=== PATIENT | female | born 1945 ===

== ENCOUNTER → 2019-08-07 | Outpatient (CLI) | payer MEDICARE, BC ==
--- NOTE | 2019-08-08 08:59 | MM ---
Reason for exam: additional evaluation requested from prior study. Last mammogram was performed 3 years and 2 months ago. History: Patient is postmenopausal, has history of other cancer at age 24, and has history of high-risk lesion on a previous biopsy at age 23. Family history of breast cancer in mother at age 50. Excisional biopsy of the left breast, 1978. Took hormonal contraceptives for 6 years beginning at age 18. Physical Findings: Nurse did not find any significant physical abnormalities on exam. MG 3D Diag Mammo W/Cad JOHN Bilateral CC and MLO view(s) were taken. CV view(s) were taken of the right breast. XCCL view(s) were taken of the left breast. Prior study comparison: June 06, 2016, mammogram, performed at [place]. April 20, 2016, mammogram, performed at [place]. There are scattered fibroglandular densities. No significant new findings when compared with previous films. These results were verbally communicated with the patient and result sheet given to the patient on 08/07/19. ASSESSMENT: Incomplete: need additional imaging evaluation, BI-RAD 0 RECOMMENDATION: Ultrasound of the right breast.
--- NOTE | 2019-08-08 09:00 | USB ---
Reason for exam: additional evaluation requested from prior study. History: Patient is postmenopausal, has history of other cancer at age 24, and has history of high-risk lesion on a previous biopsy at age 23. Family history of breast cancer in mother at age 50. Excisional biopsy of the left breast, 1978. Took hormonal contraceptives for 6 years beginning at age 18. US Breast Limited RT Right limited breast ultrasound including focal area of concern, retroareolar and axilla demonstrates no cystic or solid lesion seen. These results were verbally communicated with the patient and result sheet given to the patient on 08/07/19. ASSESSMENT: Negative, BI-RAD 1 RECOMMENDATION: Routine screening mammogram of both breasts in 1 year.
== END | disposition home or self-care (01) ==
LOC: RADMAMWWP 09:31
PROVIDERS: ATTEND Family Medicine
DX: R92.8 Other abnormal and inconclusive findings on diagnostic imaging of breast (principal); N64.59 Other signs and symptoms in breast
CPT/HCPCS: 77066; 76642; G0279; 77062

== ENCOUNTER 2019-08-13 15:57 | Inpatient (IN) | payer MEDICARE, BC ==
--- NOTE | 2019-08-13 17:08 | ED ---
General Adult HPI - General Chief complaint: Extremity Problem,Nontraumatic Stated complaint: DVT rt leg Time Seen by Provider: 08/13/19 16:20 Source: patient, RN notes reviewed Mode of arrival: wheelchair Limitations: no limitations - History of Present Illness Initial comments: This is a 74-year-old female presents emergency department stating that she's had 3 weeks of bilateral leg pain particularly in the right leg. Patient states today and ultrasound on the right leg she was told she had a clot in the right leg so she came to the hospital. Patient was not placed on any blood thinners. Patient also states she's been more short of breath lately. Patient states the shortness of breath despite been ongoing for at least a few weeks. Patient denies any chest pain today. Patient denies any palpitations per patient denies lightheadedness or dizziness. Patient denies any excessive swelling to the legs but does complain of pain of the legs mostly in the anterior region. - Related Data Home Medications Medication Instructions Recorded Confirmed Atorvastatin Calcium [Lipitor] 10 mg PO HS 08/13/19 08/13/19 Furosemide [Lasix] 20 mg PO DAILY PRN 08/13/19 08/13/19 Pregabalin [Lyrica] 75 mg PO BID 08/13/19 08/13/19 amLODIPine BESYLATE [Norvasc] 2.5 mg PO DAILY 08/13/19 08/13/19 cloNIDine HCL [Catapres] 0.1 mg PO BID 08/13/19 08/13/19 metFORMIN HCL [Glucophage] 500 mg PO BID 08/13/19 08/13/19 Allergies Allergy/AdvReac Type Severity Reaction Status Date / Time rofecoxib [From Vioxx] AdvReac Confusion Verified 08/13/19 18:29 Review of Systems ROS Statement: Those systems with pertinent positive or pertinent negative responses have been documented in the HPI. ROS Other: All systems not noted in ROS Statement are negative. Past Medical History Past Medical History: Cancer, Diabetes Mellitus Additional Past Medical History / Comment(s): kidney disease History of Any Multi-Drug Resistant Organisms: None Reported Past Surgical History: Appendectomy, Hernia Repair Additional Past Surgical History / Comment(s): kidney removal r/t ca Past Psychological History: No Psychological Hx Reported Smoking Status: Never smoker Past Alcohol Use History: None Reported Past Drug Use History: None Reported General Exam - General Exam Comments Initial Comments: GENERAL: Patient is well-developed and well-nourished. Patient is nontoxic and well- hydrated and is in mild distress. ENT: Neck is soft and supple. No significant lymphadenopathy is noted. Oropharynx is clear. Moist mucous membranes. Neck has full range of motion without eliciting any pain. EYES: The sclera were anicteric and conjunctiva were pink and moist. Extraocular movements were intact and pupils were equal round and reactive to light. Eyelids were unremarkable. PULMONARY: Unlabored respirations. Good breath sounds bilaterally. No audible rales rhonchi or wheezing was noted. CARDIOVASCULAR: There is a regular rate and rhythm without any murmurs gallops or rubs. ABDOMEN: Soft and nontender with normal bowel sounds. SKIN: Skin is clear with no lesions or rashes and otherwise unremarkable. NEUROLOGIC: Patient is alert and oriented x3. Cranial nerves II through XII are grossly intact. Motor and sensory are also intact. Normal speech, volume and content. Symmetrical smile. MUSCULOSKELETAL: Normal extremities with adequate strength and full range of motion. Her leg tenderness on the right. LYMPHATICS: No significant lymphadenopathy is noted PSYCHIATRIC: Normal psychiatric evaluation. Limitations: no limitations Course Vital Signs 08/13/19 16:22 Temperature 98.8 F Pulse Rate 103 H Respiratory 18 Rate Blood Pressure 146/73 O2 Sat by Pulse 92 L Oximetry Medical Decision Making - Medical Decision Making EKG shows normal sinus rhythm at 89 bpm WA interval 176 years 110 QT interval 334 QTC is 406. Patient's EKG shows no ST segment elevation or depression. CT of the chest shows ulnar embolisms. Patient is already placed on high-dose heparin. I spoke with Dr. Rizzo agreed to admit the patient admitted the patient I wrote admitting orders. I continued heparin on the floor. - Lab Data Result diagrams: 08/13/19 18:10 08/13/19 18:10 Lab Results 08/13/19 08/13/19 08/13/19 Range/Units 17:26 18:10 18:10 WBC 8.3 (3.8-10.6) k/uL RBC 4.69 (3.80-5.40) m/uL Hgb 12.6 (11.4-16.0) gm/dL Hct 39.0 (34.0-46.0) % MCV 83.1 (80.0-100.0) fL MCH 27.0 (25.0-35.0) pg MCHC 32.4 (31.0-37.0) g/dL RDW 14.6 (11.5-15.5) % Plt Count 256 (150-450) k/uL Neutrophils % 57 % Lymphocytes % 32 % Monocytes % 6 % Eosinophils % 2 % Basophils % 1 % Neutrophils # 4.7 (1.3-7.7) k/uL Lymphocytes # 2.6 (1.0-4.8) k/uL Monocytes # 0.5 (0-1.0) k/uL Eosinophils # 0.1 (0-0.7) k/uL Basophils # 0.0 (0-0.2) k/uL Hypochromasia Slight PT 9.6 (9.0-12.0) sec INR 0.9 (<1.2) APTT 21.8 L (22.0-30.0) sec D-Dimer 1.86 H (<0.60) mg/L FEU Sodium (137-145) mmol/L Potassium (3.5-5.1) mmol/L Chloride (98-107) mmol/L Carbon Dioxide (22-30) mmol/L Anion Gap mmol/L BUN (7-17) mg/dL Creatinine (0.52-1.04) mg/dL Est GFR (CKD-EPI)AfAm (>60 ml/min/1.73 sqM) Est GFR (CKD-EPI)NonAf (>60 ml/min/1.73 sqM) Glucose (74-99) mg/dL POC Glucose (mg/dL) 402 H (75-99) mg/dL POC Glu [employer] Viji Linares Calcium (8.4-10.2) mg/dL Total Bilirubin (0.2-1.3) mg/dL AST (14-36) U/L ALT (9-52) U/L Alkaline Phosphatase (38-126) U/L Troponin I (0.000-0.034) ng/mL Total Protein (6.3-8.2) g/dL Albumin (3.5-5.0) g/dL 08/13/19 08/13/19 08/13/19 Range/Units 18:10 18:10 20:30 WBC (3.8-10.6) k/uL RBC (3.80-5.40) m/uL Hgb (11.4-16.0) gm/dL Hct (34.0-46.0) % MCV (80.0-100.0) fL MCH (25.0-35.0) pg MCHC (31.0-37.0) g/dL RDW (11.5-15.5) % Plt Count (150-450) k/uL Neutrophils % % Lymphocytes % % Monocytes % % Eosinophils % % Basophils % % Neutrophils # (1.3-7.7) k/uL Lymphocytes # (1.0-4.8) k/uL Monocytes # (0-1.0) k/uL Eosinophils # (0-0.7) k/uL Basophils # (0-0.2) k/uL Hypochromasia PT (9.0-12.0) sec INR (<1.2) APTT (22.0-30.0) sec D-Dimer (<0.60) mg/L FEU Sodium 134 L (137-145) mmol/L Potassium 5.2 H (3.5-5.1) mmol/L Chloride 97 L (98-107) mmol/L Carbon Dioxide 32 H (22-30) mmol/L Anion Gap 5 mmol/L BUN 19 H (7-17) mg/dL Creatinine 0.80 (0.52-1.04) mg/dL Est GFR (CKD-EPI)AfAm 84 (>60 ml/min/1.73 sqM) Est GFR (CKD-EPI)NonAf 73 (>60 ml/min/1.73 sqM) Glucose 395 H (74-99) mg/dL POC Glucose (mg/dL) 348 H (75-99) mg/dL POC Glu [employer] ID Steven Ceja Calcium 9.1 (8.4-10.2) mg/dL Total Bilirubin 0.3 (0.2-1.3) mg/dL AST 16 (14-36) U/L ALT 14 (9-52) U/L Alkaline Phosphatase 97 (38-126) U/L Troponin I <0.012 (0.000-0.034) ng/mL Total Protein 6.8 (6.3-8.2) g/dL Albumin 3.6 (3.5-5.0) g/dL Critical Care Time Critical Care Time: Yes Total Critical Care Time: 35 Disposition Clinical Impression: Pulmonary embolism, Hyperglycemia, Right femoral vein DVT Disposition: ADMITTED IP TO THIS HOSP Referrals: Rupesh Redd MD [Primary Care Provider] - 1-2 days Time of Disposition: 20:55
[2019-08-13 17:30] LABS: Glucose,Whole Blood 402 mg/dL (75-99)
[2019-08-13 18:44] LABS: Basophils % (A) 1 %; Eosinophils # (A) 0.1 k/uL (0-0.7); Eosinophils % (A) 2 %; HGB 12.6 gm/dL (11.4-16.0); Hypochromasia Slight; Lymphocytes # (A) 2.6 k/uL (1.0-4.8); Lymphocytes % (A) 32 %; MCHC 32.4 g/dL (31.0-37.0); MCV 83.1 fL (80.0-100.0); Mean Platelet Volume 6.1; Monocytes # (A) 0.5 k/uL (0-1.0); Monocytes % (A) 6 %; Neutrophils # (A) 4.7 k/uL (1.3-7.7); Neutrophils % (A) 57 %; Platelet Count 256 k/uL (150-450); RBC 4.69 m/uL (3.80-5.40); RDW 14.6 % (11.5-15.5); WBC 8.3 k/uL (3.8-10.6)
[2019-08-13 18:55] LABS: Albumin 3.6 g/dL (3.5-5.0); Calcium 9.1 mg/dL (8.4-10.2); Potassium 5.2 mmol/L (3.5-5.1); Total Bilirubin 0.3 mg/dL (0.2-1.3); Total Protein 6.8 g/dL (6.3-8.2)
[2019-08-13 19:06] LABS: INR 0.9 (<1.2); Prothrombin Time 9.6 sec (9.0-12.0)
[2019-08-13 19:10] LABS: D-Dimer 1.86 mg/L FEU (<0.60)
[2019-08-13 19:11] LABS: Partial Thromboplastin Time 21.8 sec (22.0-30.0)
[2019-08-13] MEDS ORDERED: HEPARIN SODIUM,PORCINE 10,000 UNIT/ML 1 ML VIAL IV ONE (19:12)
[2019-08-13] MEDS ORDERED: INSULIN ASPART (NovoLOG) 100 UNIT/ML VIAL SQ ONE ×2 (19:28→22:56)
--- NOTE | 2019-08-13 20:20 | US ---
EXAMINATION TYPE: US venous doppler duplex LE RT DATE OF EXAM: 08/13/2019 7:08 PM COMPARISON: NONE CLINICAL HISTORY: Right leg pain. Right leg pain x 3 weeks. No HX of DVT. Patient is not on blood thi nners. SIDE PERFORMED: Right TECHNIQUE: The lower extremity deep venous system is examined utilizing real time linear array sonog ian with graded compression, doppler sonography and color-flow sonography. VESSELS IMAGED: Common Femoral Vein Deep Femoral Vein Greater Saphenous Vein * Femoral Vein Popliteal Vein Small Saphenous Vein * (* superficial vessels) FINDINGS: Color defect/thready flow is seen from distal popliteal vein extending to CFV consistent wi th nonocclusive thrombus. Limited study due to patient's inability to tolerate compression in certain vein segments. Unable to visualize EIV or prox calf veins. IMPRESSION: POSITIVE FOR NONOCCLUSIVE DEEP VENOUS THROMBUS OF THE RIGHT COMMON FEMORAL AND POPLITEAL VEINS.
[2019-08-13 20:31] LABS: Glucose,Whole Blood 348 mg/dL (75-99)
[2019-08-13] MEDS: HEPARIN SOD,PORK IN 0.45% NACL 25,000 UNIT in 0.45% NACL 1 250ML.BAG IV SCH (20:37)
--- NOTE | 2019-08-13 20:53 | CT ---
EXAMINATION TYPE: CT chest angio for PE with contrast and with 3-D reconstruction renderings DATE OF EXAM: 08/13/2019 COMPARISON: None HISTORY: SOB. hx of DVT. CT DLP: 934.1 mGycm Automated exposure control for dose reduction was used. CONTRAST: CT Chest for pulmonary embolism performed with with IV Contrast, patient injected with 73cc mL of Isovue 370. Three-D reconstructions. FINDINGS: LUNGS AND PLEURAL SPACES: The lungs are grossly clear, there is no concerning parenchymal mass or nod ule identified. There is no pleural effusion or pneumothorax seen. The tracheobronchial tree is quinn nt. MEDIASTINUM: There is satisfactory enhancement of the pulmonary artery and its branches, with bilater al segmental filling defects, left greater than right. These are most prominent within the lower lobe and in fact there are 2 left lower lobe posterior segmental occlusive filling defects. There is flat tening of the interventricular septum, suggesting the possibility of right heart strain. However, the re is significant cardiac motion artifact limiting visualization. There is mild cardiomegaly, but no pericardial effusion. Coronary calcifications are noted. No acute aortic pathology. There are no greater than 1 cm hilar or mediastinal lymph nodes. OTHER: No additional significant abnormality is seen. IMPRESSION: POSITIVE FOR BILATERAL PULMONARY EMBOLI DETAILED ABOVE. Results discussed with the ordering provid er of record just now, in order to to ensure intact communications.
[2019-08-13] MEDS ORDERED: SODIUM CHLORIDE 0.9% 1,000 ML IV ONE (20:56)
[2019-08-13 22:12] LABS: Glucose,Whole Blood 326 mg/dL (75-99)
[2019-08-13] MEDS ORDERED: HEPARIN SODIUM,PORCINE 5,000 UNIT/ML 1 ML VIAL IV PRN (22:35)
[2019-08-13] MEDS ORDERED: SENNOSIDES-DOCUSATE SODIUM 1 EACH TAB PO PRN (22:54)
[2019-08-13] MEDS ORDERED: INSULIN DETEMIR (LEVEMIR) 100 UNIT/ML SYR SQ ONE (23:30)
[2019-08-13] MEDS: ATORVASTATIN 10 MG TAB PO SCH (23:59)
[2019-08-13] MEDS: PREGABALIN 75 MG CAP PO SCH (23:59)
[2019-08-13] MEDS: metFORMIN 500 MG TAB PO SCH (23:59)
[2019-08-13] MEDS: cloNIDine HCL 0.1 MG TAB PO SCH (23:59)
[2019-08-14] MEDS: glipiZIDE 5 MG TAB PO SCH ×2 (00:10→08:19)
[2019-08-14 06:10] LABS: Glucose,Whole Blood 117 mg/dL (75-99)
[2019-08-14] MEDS: INSULIN ASPART (NovoLOG) 100 UNIT/ML VIAL SQ SCH ×5 (06:11→21:10)
[2019-08-14] MEDS: PREGABALIN 75 MG CAP PO SCH ×2 (08:18→21:13)
[2019-08-14] MEDS: metFORMIN 500 MG TAB PO SCH ×2 (08:19→21:10)
[2019-08-14] MEDS: amLODIPine 2.5 MG TAB PO SCH (08:19)
[2019-08-14] MEDS: cloNIDine HCL 0.1 MG TAB PO SCH ×2 (08:19→21:10)
[2019-08-14] MEDS ORDERED: FUROSEMIDE 20 MG TAB PO PRN (09:00)
[2019-08-14 10:02] VITALS: BMI 45.5
[2019-08-14] MEDS: HEPARIN SOD,PORK IN 0.45% NACL 25,000 UNIT in 0.45% NACL 1 250ML.BAG IV SCH ×2 (11:42→12:02)
[2019-08-14] MEDS ORDERED: ACETAMINOPHEN TAB 500 MG TAB PO PRN (11:48)
[2019-08-14 11:52] LABS: Glucose,Whole Blood 117 mg/dL (75-99)
--- NOTE | 2019-08-14 12:41 | ECHOF ---
Referral Reason:PE MEASUREMENTS -------- HEIGHT: 152.4 cm WEIGHT: 108.9 kg BP: 128/74 RVIDd: 4.0 cm (< 3.3) IVSd: 1.2 cm (0.6 - 1.1) LVIDd: 2.8 cm (3.9 - 5.3) LVPWd: 1.8 cm (0.6 - 1.1) IVSs: 1.4 cm LVIDs: 2.1 cm LVPWs: 1.2 cm LA Diam: 4.2 cm (2.7 - 3.8) LAESV Index (A-L): 32.68 ml/m Ao Diam: 2.7 cm (2.0 - 3.7) AV Cusp: 1.4 cm (1.5 - 2.6) LA Diam: 2.8 cm (2.7 - 3.8) MV EXCURSION: 12.495 mm (> 18.000) MV EF SLOPE: 64 mm/s (70 - 150) EPSS: 1.0 cm MV E Zac: 0.57 m/s MV DecT: 175 ms MV A Zac: 1.53 m/s MV E/A Ratio: 0.37 RAP: 5.00 mmHg RVSP: 55.15 mmHg FINDINGS -------- Sinus rhythm. Morbid Obesity This was a techncally difficult study with suboptimal views, , Lumason utilized for enhancement of im ages. The left ventricular size is normal. There is mild concentric left ventricular hypertrophy. Overa ll left ventricular systolic function is low-normal with, an EF between 50 - 55 %. The right ventricle is moderate to severely enlarged. The left atrium is mildly dilated. LA is midly dilated 29-33ml/m2. The right atrial size is normal. 5.0mg OF Lumason UTLIZED: 2 OR MORE WALL SEGMENTS NOT VISUALIZED. There is mild aortic valve sclerosis. There is no evidence of aortic regurgitation. The mitral valve was not well visualized. Mild mitral annular calcification present. Mild mitral regurgitation is present. The peak and mean MV gradients are 11.61mmHg 3.88mmHg as measured by dop pler. Mild mitral stenosis. Mild tricuspid regurgitation present. There is moderate pulmonary hypertension. The right ventric ular systolic pressure, as measured by Doppler, is 55.15mmHg. The pulmonic valve was not well visualized. There is no pericardial effusion. CONCLUSIONS -------- 1. Sinus rhythm. 2. Morbid Obesity 3. This was a techncally difficult study with suboptimal views, , Lumason utilized for enhancement of images. 4. The left ventricular size is normal. 5. There is mild concentric left ventricular hypertrophy. 6. Overall left ventricular systolic function is low-normal with, an EF between 50 - 55 %. 7. The right ventricle is moderate to severely enlarged. 8. The left atrium is mildly dilated. 9. LA is midly dilated 29-33ml/m2. 10. The right atrial size is normal. 11. 5.0mg OF Lumason UTLIZED: 2 OR MORE WALL SEGMENTS NOT VISUALIZED. 12. There is mild aortic valve sclerosis. 13. The mitral valve was not well visualized. 14. Mild mitral annular calcification present. 15. Mild mitral regurgitation is present. 16. The peak and mean MV gradients are 11.61mmHg 3.88mmHg as measured by doppler. 17. Mild mitral stenosis. 18. Mild tricuspid regurgitation present. 19. There is moderate pulmonary hypertension. 20. The right ventricular systolic pressure, as measured by Doppler, is 55.15mmHg. 21. The pulmonic valve was not well visualized. 22. There is no pericardial effusion. GROUND HAND: Ninfa Culp RDCS
--- NOTE | 2019-08-14 14:59 | P.CNPUL ---
History of Present Illness Consult date: 08/14/19 Requesting physician: Jair Rizzo Reason for consult: pulmonary embolism, DVT, abnormal CXR/CT Chief complaint: Shortness of breath, right lower extremity pain History of present illness: This is a 74-year-old -[place] female patient of Dr. Redd, who came into the emergency department on 08/13/2019 for evaluation of bilateral leg pain particularly in the right leg for the past 3 weeks apparently patient had an outpatient ultrasound of the right lower extremity and was told that she had a DVT in the right leg and she came into the hospital. Also reports some shortness of breath lately, denied any chest pain, denied any cough or congestion, denied any lightheadedness, dizziness or syncopal episodes, no palpitations, no fever or chills. No hemoptysis. Denies any excessive swelling to lower extremities. Her past medical history is significant for diabetes mellitus type 2, chronic kidney disease, morbid obesity, previous history of appendectomy, and hernia repair. Venous Doppler ultrasound of the right leg revealed nonocclusive deep venous thrombosis of the right common femoral and popliteal vein. CT angios of the chest showed pulmonary emboli in segmental branches, left greater than right, and most prominent within the left lower lobe. There was a possibility of right heart strain as seen on the CTA chest with evidence of flattening of interventricular septum. Hemodynamically patient remains stable, room air pulse ox is 93%, sinus rhythm on the monitor with incomplete right bundle branch block pattern. She was started on heparin infusion. The rest of her labs showed unremarkable CBC, d-dimer was elevated at 1.86, serum sodium was 134, potassium is 5.2, chloride is 97, CO2 32, BUN is 19 creatinine 0.8, troponin was negative. Review of Systems All systems: negative Constitutional: Denies chills, Denies fever Eyes: denies blurred vision, denies pain Ears, nose, mouth and throat: Denies headache, Denies sore throat Cardiovascular: Denies chest pain, Denies shortness of breath Respiratory: Reports dyspnea, Denies cough Gastrointestinal: Denies abdominal pain, Denies diarrhea, Denies nausea, Denies vomiting Genitourinary: Denies dysuria, Denies hematuria Musculoskeletal: Denies myalgias Musculoskeletal: right: ankle pain Integumentary: Denies pruritus, Denies rash Neurological: Denies numbness, Denies weakness Psychiatric: Denies anxiety, Denies depression Endocrine: Denies fatigue, Denies weight change Past Medical History Past Medical History: Cancer, Diabetes Mellitus Additional Past Medical History / Comment(s): kidney disease History of Any Multi-Drug Resistant Organisms: None Reported Past Surgical History: Appendectomy, Hernia Repair Additional Past Surgical History / Comment(s): kidney removal r/t ca Smoking Status: Never smoker - Past Family History Mother Family Medical History: Cancer Father Family Medical History: Unable to Obtain Medications and Allergies Home Medications Medication Instructions Recorded Confirmed Type Atorvastatin Calcium [Lipitor] 10 mg PO HS 08/13/19 08/13/19 History Furosemide [Lasix] 20 mg PO DAILY PRN 08/13/19 08/13/19 History Pregabalin [Lyrica] 75 mg PO BID 08/13/19 08/13/19 History amLODIPine BESYLATE [Norvasc] 2.5 mg PO DAILY 08/13/19 08/13/19 History cloNIDine HCL [Catapres] 0.1 mg PO BID 08/13/19 08/13/19 History metFORMIN HCL [Glucophage] 500 mg PO BID 08/13/19 08/13/19 History Apixaban [Eliquis Starter Pack 0 mg PO DIRECTED 30 Days #1 pack 08/14/19 Rx (for VTE)] Allergies Allergy/AdvReac Type Severity Reaction Status Date / Time rofecoxib [From Vioxx] AdvReac Confusion Verified 08/13/19 18:29 Physical Exam Vitals: Vital Signs Temp Pulse Pulse Resp BP BP Pulse Ox 08/14/19 12:13 100 16 144/66 93 L 08/14/19 07:45 98.5 F 91 18 148/72 93 L 08/14/19 03:50 98 F 90 18 128/74 91 L 08/14/19 00:00 105 H 18 08/13/19 22:18 98.3 F 105 H 18 147/81 95 08/13/19 21:21 98.0 F 87 16 134/87 96 08/13/19 16:22 98.8 F 103 H 18 146/73 92 L Intake and Output 08/13/19 08/14/19 08/14/19 22:59 06:59 14:59 Intake Total 142.39 335.252 Output Total 150 Balance 142.39 185.252 Intake: Intake, IV Titration 142.39 95.252 Amount Heparin Sod,Pork in 0.45% 142.39 95.252 NaCl 25,000 unit In 0.45 % NaCl 1 250ml.bag @ 18 UNITS/KG/HR 19.595 mls/hr IV .[id number] [facility] Rx#: [id number] Oral 240 Output: Urine 150 Other: Voiding Method Bedside Commode # Voids 2 1 # Bowel Movements 1 Weight 108.862 kg 109.3 kg 109.3 kg GENERAL EXAM: Alert, pleasant, 74-year-old -[place] female drowsy, but answers questions and falls back asleep, on room air, with a pulse ox of 93% comfortable in no apparent distress. HEAD: Normocephalic/atraumatic. EYES: Normal reaction of pupils, equal size. Conjunctiva pink, sclera white. NOSE: Clear with pink turbinates. THROAT: No erythema or exudates. NECK: No masses, no JVD, no thyroid enlargement, no adenopathy. CHEST: No chest wall deformity. Symmetrical expansion. LUNGS: Equal air entry with no crackles, wheeze, rhonchi or dullness. CVS: Regular rate and rhythm, normal S1 and S2, no gallops, no murmurs, no rubs ABDOMEN: Soft, nontender. No hepatosplenomegaly, normal bowel sounds, no guarding or rigidity. EXTREMITIES: No clubbing, no edema, no cyanosis, 2+ pulses and upper and lower extremities. MUSCULOSKELETAL: Muscle strength and tone normal. SPINE: No scoliosis or deformity SKIN: No rashes CENTRAL NERVOUS SYSTEM: Alert and oriented -3. No focal deficits, tone is normal in all 4 extremities. PSYCHIATRIC: Alert and oriented -3. Appropriate affect. Intact judgment and insight. Results - Laboratory Findings CBC and BMP: 08/13/19 18:10 08/13/19 18:10 PT/INR, D-dimer PT 9.6 sec (9.0-12.0) 08/13/19 18:10 INR 0.9 (<1.2) 08/13/19 18:10 D-Dimer 1.86 mg/L FEU (<0.60) H 08/13/19 18:10 Abnormal lab findings: Abnormal Labs 08/13/19 08/13/19 08/13/19 17:26 18:10 18:10 APTT 21.8 L D-Dimer 1.86 H Sodium 134 L Potassium 5.2 H Chloride 97 L Carbon Dioxide 32 H BUN 19 H Glucose 395 H POC Glucose (mg/dL) 402 H 08/13/19 08/13/19 08/14/19 20:30 22:11 02:52 APTT >200.0 H* D-Dimer Sodium Potassium Chloride Carbon Dioxide BUN Glucose POC Glucose (mg/dL) 348 H 326 H 08/14/19 08/14/19 06:09 11:50 APTT D-Dimer Sodium Potassium Chloride Carbon Dioxide BUN Glucose POC Glucose (mg/dL) 117 H 117 H - Diagnostic Findings CT scan - chest: report reviewed, image reviewed Additional studies: Venous Doppler ultrasound of right lower extremity reviewed Assessment and Plan Plan: Assessment: #1. Acute pulmonary emboli involving both lungs, with greater burden in the left lung, with possibility of right heart strain seen on the CTA chest. No ev idence of hypotension, or hemodynamic instability #2. Right lower extremity DVT #3. Moderate pulmonary hypertension with PA systolic of 55 mmHg and mild tricuspid regurgitation, there is evidence of moderate to severe enlargement of the right ventricle, but EF was low normal at 50-55% #3. Diabetes mellitus type 2 #4. Morbid obesity #5. History of obstructive sleep apnea, on CPAP therapy, which she has not been using because she needs a new mask #6. Lifetime nonsmoker #7. 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 Hypertension Plan: Continue with heparin infusion, CTA chest has been reviewed showing possibility of right heart strain and evidence of emboli and both lungs with greater burden in the left lung. Hemodynamically and clinically patient remains stable, with stable oxygenation, no need for thrombolytics. Continue with heparin infusion, check coverage for Eliquis, probably switch the patient over tomorrow to oral anticoagulation. Results of the echocardiogram and the CTA chest have been noted. We will order CPAP at night at a pressure of 10 cm of water and FiO2 of 21%. She will need outpatient follow-up in the office, she needs a new mask for her CPAP, and that can be addressed before she leaves the hospital. Currently she has not been using her unit at home related to needing a new mask. I performed a history & physical examination of the patient and discussed their management with my nurse practitioner, Chiara Claudio. I reviewed the nurse practitioner's note and agree with the documented findings and plan of care. Lung sounds are positive for diffuse wheezes throughout the lung jimenez. The findings and the impression was discussed with the patient. I attest to the documentation by the nurse practitioner. Time with Patient: Greater than 30
[2019-08-14 16:37] LABS: Glucose,Whole Blood 117 mg/dL (75-99)
[2019-08-14] MEDS: RIVAROXABAN 15 MG TAB PO SCH (18:03)
--- NOTE | 2019-08-14 19:28 | P.HPIM ---
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 Chronic stable medical conditions include diabetes mellitus type 2, right nephrectomy for cancer, osteoarthritis, morbid obesity. Normally uses a walker and a prescription to get about. Has been having some pain and discomfort in the right leg. Also noticed to be slightly short of breath. No fever no chills. Also had some swelling of the right leg that is the right thigh. She had an outpatient ultrasound that did show DVT of the right leg and she was sent to the hospital. The shortness of breath to has gone on for quite a few days. She was put on IV heparin the ER and admitted for the same. Computed tomography scan of the chest in the ER did confirm bilateral pulmonary embolism. Review of systems: GEN.: None EYES: None HEENT: None NECK: None RESPIRATORY: As above CARDIOVASCULAR: None GASTROINTESTINAL: None GENITOURINARY: None MUSCULOSKELETAL: Pain in joints, also complains of cramping in the left foot at night for a few days. LYMPHATICS: None HEMATOLOGICAL: None PSYCHIATRY: None NEUROLOGICAL: None Social history: Does not smoke or drink at all. Lives at [facility]. Does use a walker in the scooter. Family history: Cancer Physical examination: VITAL SIGNS: 98.8, 103, 18, 146/73, 92% room air GENERAL: BMI 45.5, laying in bed, but tired. EYES: Pupils equal. Conjunctiva normal. HEENT: External appearance of nose and ears normal, oral cavity grossly normal. NECK: JVD unable to assess; masses not palpable. HEART: First and second heart sounds are normal; no edema. LUNGS: Respiratory rate increased, fair entry. ABDOMEN: Soft, nontender, liver spleen not palpable, no masses palpable. PSYCH: Alert and oriented x3; mood and affect normal. NEUROLOGICAL: Cranial nerves grossly intact; no facial asymmetry, power and sensation grossly intact. LYMPHATICS: No lymph nodes palpable in the axilla and neck MUSCULAR schedule: Evidence of OA especially in the hands and knees INVESTIGATIONS, reviewed in the clinical context: White count 8.3 hemoglobin 12.6 platelets 256 d-dimer 1.86 potassium 5.2 BUN 19 creatinine 0.80. Glucose 395 Anion gap 19 Doppler-NONOCCLUSIVE DVT OF THE RIGHT COMMON FEMORAL AND POPLITEAL VEIN CT CHEST-POSITIVE FOR BILATERAL PULMONARY EMBOLISM 2-D ECHO-RIGHT VENTRICLE IS MODERATELY TO SEVERELY ENLARGED, MODERATE PULMONARY HYPERTENSION EF 50-55% ASSESSMENT: -ACUTE RIGHT FEMORAL AND POPLITEAL VEIN DVT ASSOCIATED WITH BILATERAL PULMONARY EMBOLISM, PRECIPITATED BED IN AN ELDERLY WOMAN WHO IS NOT MUCH AMBULATORY'S -Primary osteoarthritis -Morbid obesity BMI 40.5 -Diabetes mellitus type 2 on oral hypoglycemic, uncontrolled with hypoglycemia -Right nephrectomy for a cancer -IV heparin monitoring Plan: Care was discussed with the patient. Questions were answered. Patient be started on IV heparin. Patient be later switched over to oral anticoagulants. Stockings are be provided to both the lower extremity. Accu-Cheks are running rather high. Does of metformin increased to thousand milligrams twice a day and also glyburide is added. Past Medical History Past Medical History: Cancer, Diabetes Mellitus Additional Past Medical History / Comment(s): kidney disease History of Any Multi-Drug Resistant Organisms: None Reported Past Surgical History: Appendectomy, Hernia Repair Additional Past Surgical History / Comment(s): kidney removal r/t ca Smoking Status: Never smoker - Past Family History Mother Family Medical History: Cancer Father Family Medical History: Unable to Obtain Medications and Allergies Home Medications Medication Instructions Recorded Confirmed Type Atorvastatin Calcium [Lipitor] 10 mg PO HS 08/13/19 08/13/19 History Furosemide [Lasix] 20 mg PO DAILY PRN 08/13/19 08/13/19 History Pregabalin [Lyrica] 75 mg PO BID 08/13/19 08/13/19 History amLODIPine BESYLATE [Norvasc] 2.5 mg PO DAILY 08/13/19 08/13/19 History cloNIDine HCL [Catapres] 0.1 mg PO BID 08/13/19 08/13/19 History metFORMIN HCL [Glucophage] 500 mg PO BID 08/13/19 08/13/19 History Apixaban [Eliquis Starter Pack 0 mg PO DIRECTED 30 Days #1 pack 08/14/19 Rx (for VTE)] Allergies Allergy/AdvReac Type Severity Reaction Status Date / Time rofecoxib [From Vioxx] AdvReac Confusion Verified 08/13/19 18:29 Physical Exam Vitals: Vital Signs Temp Pulse Pulse Resp BP BP Pulse Ox 08/14/19 07:45 98.5 F 67 18 126/72 96 08/14/19 03:50 98 F 90 18 128/74 91 L 08/14/19 00:00 105 H 18 08/13/19 22:18 98.3 F 105 H 18 147/81 95 08/13/19 21:21 98.0 F 87 16 134/87 96 08/13/19 16:22 98.8 F 103 H 18 146/73 92 L Intake and Output 08/13/19 08/14/19 08/14/19 22:59 06:59 14:59 Intake Total 142.39 240 Balance 142.39 240 Intake: Intake, IV Titration 142.39 Amount Heparin Sod,Pork in 0.45% 142.39 NaCl 25,000 unit In 0.45 % NaCl 1 250ml.bag @ 18 UNITS/KG/HR 19.595 mls/hr IV .[id number] [facility] Rx#: [id number] Oral 240 Other: Voiding Method Bedside Commode # Voids 2 # Bowel Movements 1 Weight 108.862 kg 109.3 kg 109.3 kg Results CBC & Chem 7: 08/13/19 18:10 08/13/19 18:10 Labs: Abnormal Lab Results - Last 24 Hours (Table) 08/13/19 08/13/19 08/13/19 Range/Units 17:26 18:10 18:10 APTT 21.8 L (22.0-30.0) sec D-Dimer 1.86 H (<0.60) mg/L FEU Sodium 134 L (137-145) mmol/L Potassium 5.2 H (3.5-5.1) mmol/L Chloride 97 L (98-107) mmol/L Carbon Dioxide 32 H (22-30) mmol/L BUN 19 H (7-17) mg/dL Glucose 395 H (74-99) mg/dL POC Glucose (mg/dL) 402 H (75-99) mg/dL 08/13/19 08/13/19 08/14/19 Range/Units 20:30 22:11 02:52 APTT >200.0 H* (22.0-30.0) sec D-Dimer (<0.60) mg/L FEU Sodium (137-145) mmol/L Potassium (3.5-5.1) mmol/L Chloride (98-107) mmol/L Carbon Dioxide (22-30) mmol/L BUN (7-17) mg/dL Glucose (74-99) mg/dL POC Glucose (mg/dL) 348 H 326 H (75-99) mg/dL 08/14/19 Range/Units 06:09 APTT (22.0-30.0) sec D-Dimer (<0.60) mg/L FEU Sodium (137-145) mmol/L Potassium (3.5-5.1) mmol/L Chloride (98-107) mmol/L Carbon Dioxide (22-30) mmol/L BUN (7-17) mg/dL Glucose (74-99) mg/dL POC Glucose (mg/dL) 117 H (75-99) mg/dL Thrombosis Risk Factor Assmnt - Choose All That Apply Each Factor Represents 1 point: Obesity (BMI >25), Swollen legs (current) Each Risk Factor Represents 3 Points: Age 75 years or older Thrombosis Risk Factor Assessment Total Risk Factor Score: 5 Thrombosis Risk Factor Assessment Level: High Risk
[2019-08-14 20:45] LABS: Glucose,Whole Blood 214 mg/dL (75-99)
[2019-08-14] MEDS: ATORVASTATIN 10 MG TAB PO SCH (21:10)
[2019-08-15] MEDS: INSULIN ASPART (NovoLOG) 100 UNIT/ML VIAL SQ SCH (06:09)
[2019-08-15 06:10] LABS: Glucose,Whole Blood 100 mg/dL (75-99)
[2019-08-15] MEDS: RIVAROXABAN 15 MG TAB PO SCH (06:15)
[2019-08-15] MEDS: PREGABALIN 75 MG CAP PO SCH (07:29)
[2019-08-15 08:27] VITALS: BP 136/71; PULSE 95; RESP 16; TEMP 98.3
[2019-08-15] MEDS: amLODIPine 2.5 MG TAB PO SCH (09:58)
[2019-08-15] MEDS: metFORMIN 500 MG TAB PO SCH (09:59)
[2019-08-15] MEDS: cloNIDine HCL 0.1 MG TAB PO SCH (09:59)
[2019-08-15] MEDS: glipiZIDE 5 MG TAB PO SCH (09:59)
--- NOTE | 2019-08-15 12:22 | P.PN ---
Subjective Progress Note Date: 08/15/19 Principal diagnosis: Shortness of breath, right lower extremity pain This is a 74-year-old -Thai female patient of Dr. Redd, who came into the emergency department on 08/13/2019 for evaluation of bilateral leg pain particularly in the right leg for the past 3 weeks apparently patient had an outpatient ultrasound of the right lower extremity and was told that she had a DVT in the right leg and she came into the hospital. Also reports some shortness of breath lately, denied any chest pain, denied any cough or congestion, denied any lightheadedness, dizziness or syncopal episodes, no palpitations, no fever or chills. No hemoptysis. Denies any excessive swelling to lower extremities. Her past medical history is significant for diabetes mellitus type 2, chronic kidney disease, morbid obesity, previous history of appendectomy, and hernia repair. Venous Doppler ultrasound of the right leg revealed nonocclusive deep venous thrombosis of the right common femoral and popliteal vein. CT angios of the chest showed pulmonary emboli in segmental branches, left greater than right, and most prominent within the left lower lobe. There was a possibility of right heart strain as seen on the CTA chest with evidence of flattening of interventricular septum. Hemodynamically patient remains stable, room air pulse ox is 93%, sinus rhythm on the monitor with inc omplete right bundle branch block pattern. She was started on heparin infusion. The rest of her labs showed unremarkable CBC, d-dimer was elevated at 1.86, serum sodium was 134, potassium is 5.2, chloride is 97, CO2 32, BUN is 19 creatinine 0.8, troponin was negative. On 08/15/2019 patient seen in follow-up on selective care unit, she has been approved for Eliquis N Xarelto, and she has been transitioned to oral Xarelto, heparin drip has been discontinued, clinically asymptomatic, denies any shortness of breath or chest pain, hemodynamically stable, she is on room air, no fever or chills, no right lower extremity pain. She is more awake on today's exam, no specific complaints, she is being discharged home today, and she will need outpatient follow-up in the office in 7-10 days Objective - Vital Signs Vital signs: Vital Signs Temp 98.3 F 08/15/19 08:00 Pulse 95 08/15/19 08:00 Resp 16 10/03/19 08:00 BP 136/71 08/15/19 08:00 Pulse Ox 95 08/15/19 08:00 Intake & Output 08/14/19 08/15/19 08/15/19 18:59 06:59 18:59 Intake Total 1078.113 960 240 Output Total 150 Balance 928.113 960 240 Weight 109.3 kg 111.5 kg Intake: Intake, IV Titration 118.113 Amount Heparin Sod,Pork in 0.45% 118.113 NaCl 25,000 unit In 0.45 % NaCl 1 250ml.bag @ 18 UNITS/KG/HR 19.595 mls/hr IV .[id number] [facility] Rx#: [id number] Oral 960 960 240 Output: Urine 150 Other: Voiding Method Bedside Commode # Voids 1 1 # Bowel Movements 1 - Exam GENERAL EXAM: Alert, pleasant, 74-year-old -Thai female on room air, with a pulse ox of 95% comfortable in no apparent distress. HEAD: Normocephalic/atraumatic. EYES: Normal reaction of pupils, equal size. Conjunctiva pink, sclera white. NOSE: Clear with pink turbinates. THROAT: No erythema or exudates. NECK: No masses, no JVD, no thyroid enlargement, no adenopathy. CHEST: No chest wall deformity. Symmetrical expansion. LUNGS: Equal air entry with no crackles, wheeze, rhonchi or dullness. CVS: Regular rate and rhythm, normal S1 and S2, no gallops, no murmurs, no rubs ABDOMEN: Soft, nontender. No hepatosplenomegaly, normal bowel sounds, no guarding or rigidity. EXTREMITIES: No clubbing, no edema, no cyanosis, 2+ pulses and upper and lower extremities. MUSCULOSKELETAL: Muscle strength and tone normal. SPINE: No scoliosis or deformity SKIN: No rashes CENTRAL NERVOUS SYSTEM: Alert and oriented -3. No focal deficits, tone is normal in all 4 extremities. PSYCHIATRIC: Alert and oriented -3. Appropriate affect. Intact judgment and insight. - Labs CBC & Chem 7: 08/13/19 18:10 08/13/19 18:10 Labs: Abnormal Lab Results - Last 24 Hours (Table) 08/14/19 08/14/19 08/14/19 Range/Units 12:20 16:35 20:43 APTT 177.2 H* (22.0-30.0) sec POC Glucose (mg/dL) 117 H 214 H (75-99) mg/dL 08/15/19 Range/Units 06:09 APTT (22.0-30.0) sec POC Glucose (mg/dL) 100 H (75-99) mg/dL Assessment and Plan Plan: Assessment: #1. Acute pulmonary emboli involving both lungs, with greater burden in the left lung, with possibility of right heart strain seen on the CTA chest. No evidence of hypotension, or hemodynamic instability #2. Right lower extremity DVT #3. Moderate pulmonary hypertension with PA systolic of 55 mmHg and mild tricuspid regurgitation, there is evidence of moderate to severe enlargement of the right ventricle, but EF was low normal at 50-55% #3. Diabetes mellitus type 2 #4. Morbid obesity #5. History of obstructive sleep apnea, on CPAP therapy, which she has not been using because she needs a new mask #6. Lifetime nonsmoker #7. 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 Hypertension Plan: Patient is stable for discharge from pulmonary perspective, she has been switched over to oral Xarelto, she is on room air, likely stable, denies any shortness of breath, right lower extremity pain has improved, no acute issues overnight, she will need outpatient follow-up in the office in 7-[address] Luciano. I performed a history & physical examination of the patient and discussed their management with my nurse practitioner, Chiara Claudio. I reviewed the nurse practitioner's note and agree with the documented findings and plan of care. Lung sounds are positive for diffuse wheezes throughout the lung jimenez. The findings and the impression was discussed with the patient. I attest to the documentation by the nurse practitioner. Time with Patient: Less than 30
--- NOTE | 2019-08-17 23:05 | P.DS ---
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 Chronic stable medical conditions include diabetes mellitus type 2, right nephrectomy for cancer, osteoarthritis, morbid obesity. Normally uses a walker and a prescription to get about. Has been having some pain and discomfort in the right leg. Also noticed to be slightly short of breath. No fever no chills. Also had some swelling of the right leg that is the right thigh. She had an outpatient ultrasound that did show DVT of the right leg and she was sent to the hospital. The shortness of breath to has gone on for quite a few days. She was put on IV heparin the ER and admitted for the same. Computed tomography scan of the chest in the ER did confirm bilateral pulmonary embolism. Patient initially treated with IV heparin. That she was switched over to the oral anticoagulant. Symptoms much improved by the time of discharge. Care was discussed in detail with the patient. Questions were answered. Patient be taking anticoagulation for at least 6 months. Advised to wear stockings. Consultation: Dr. Amezcua from pulmonary. Physical examination: VITAL SIGNS: 98.3, 95, 16, 136/71, 95% room air GENERAL: Sitting up in bed, awake. EYES: Pupils equal. Conjunctiva normal. HEENT: External appearance of nose and ears normal, oral cavity grossly normal. NECK: JVD unable to assess; masses not palpable. HEART: First and second heart sounds are normal; no edema. LUNGS: Respiratory rate increased, fair entry. ABDOMEN: Soft, nontender, liver spleen not palpable, no masses palpable. PSYCH: Alert and oriented x3; mood and affect normal. MUSCULAR schedule: Evidence of OA especially in the hands and knees INVESTIGATIONS, reviewed in the clinical context: White count 8.3 hemoglobin 12.6 platelets 256 d-dimer 1.86 potassium 5.2 BUN 19 creatinine 0.80. Glucose 395 Anion gap 19 Doppler-NONOCCLUSIVE DVT OF THE RIGHT COMMON FEMORAL AND POPLITEAL VEIN CT CHEST-POSITIVE FOR BILATERAL PULMONARY EMBOLISM 2-D ECHO-RIGHT VENTRICLE IS MODERATELY TO SEVERELY ENLARGED, MODERATE PULMONARY HYPERTENSION EF 50-55% Discharge diagnosis: -ACUTE RIGHT FEMORAL AND POPLITEAL VEIN DVT ASSOCIATED WITH BILATERAL PULMONARY EMBOLISM, PRECIPITATED BY DECREASED AMBULATION. -Primary osteoarthritis -Morbid obesity BMI 40.5 -Diabetes mellitus type 2 on oral hypoglycemic, uncontrolled with hypoglycemia -Right nephrectomy for a cancer -IV heparin monitoring Disposition: Home/assisted living at [facility] Patient Condition at Discharge: Stable Plan - Discharge Summary New Discharge Prescriptions: New Apixaban [Eliquis Starter Pack (for VTE)] 0 mg PO DIRECTED 30 Days #1 pack metFORMIN HCL [Glucophage] 1,000 mg PO BID #60 tab glipiZIDE [Glucotrol] 2.5 mg PO AC-BRKFST #30 tablet Continue cloNIDine HCL [Catapres] 0.1 mg PO BID amLODIPine BESYLATE [Norvasc] 2.5 mg PO DAILY Pregabalin [Lyrica] 75 mg PO BID Atorvastatin Calcium [Lipitor] 10 mg PO HS Furosemide [Lasix] 20 mg PO DAILY PRN PRN Reason: Edema Discontinued metFORMIN HCL [Glucophage] 500 mg PO BID Discharge Medication List Atorvastatin Calcium [Lipitor] 10 mg PO HS 08/13/19 [History] Furosemide [Lasix] 20 mg PO DAILY PRN 08/13/19 [History] Pregabalin [Lyrica] 75 mg PO BID 08/13/19 [History] amLODIPine BESYLATE [Norvasc] 2.5 mg PO DAILY 08/13/19 [History] cloNIDine HCL [Catapres] 0.1 mg PO BID 08/13/19 [History] Apixaban [Eliquis Starter Pack (for VTE)] 0 mg PO DIRECTED 30 Days #1 pack 08/14/19 [Rx] glipiZIDE [Glucotrol] 2.5 mg PO AC-BRKFST #30 tablet 08/15/19 [Rx] metFORMIN HCL [Glucophage] 1,000 mg PO BID #60 tab 08/15/19 [Rx] Follow up Appointment(s)/Referral(s): Christine Spencer NPC [Nurse Practitioner] - 09/05/19 2:30 pm () Rupesh Redd MD [Primary Care Provider] - 08/16/19 (Doctor to see you either Monday or Monday. They will call and notify you of time) Patient Instructions/Handouts: Pulmonary Embolism (DC), Safe Use of Anticoagulants (DC) Activity/Diet/Wound Care/Special Instructions: Daily Accu-Cheks in the morning.-Keep a log Discharge Disposition: HOME SELF-CARE
== END 2019-08-15 12:23 | disposition home or self-care (01) | DRG 299 ==
LOC: EC 15:57 → 3SCARD 20:56
PROVIDERS: ADMIT Hospitalist; ATTEND Hospitalist
DX: I82.411 Acute embolism and thrombosis of right femoral vein (principal); I26.99 Other pulmonary embolism without acute cor pulmonale; Z68.41 Body mass index [BMI] 40.0-44.9, adult; I82.431 Acute embolism and thrombosis of right popliteal vein; I27.20 Pulmonary hypertension, unspecified; I45.10 Unspecified right bundle-branch block; M19.91 Primary osteoarthritis, unspecified site; I10 Essential (primary) hypertension; E11.65 Type 2 diabetes mellitus with hyperglycemia; E11.649 Type 2 diabetes mellitus with hypoglycemia without coma; G47.33 Obstructive sleep apnea (adult) (pediatric); E66.01 Morbid (severe) obesity due to excess calories; Z79.84 Long term (current) use of oral hypoglycemic drugs; Z79.899 Other long term (current) drug therapy; Z90.49 Acquired absence of other specified parts of digestive tract; Z90.5 Acquired absence of kidney; Z98.890 Other specified postprocedural states; Z85.528 Personal history of other malignant neoplasm of kidney; Z80.9 Family history of malignant neoplasm, unspecified; Z88.6 Allergy status to analgesic agent
CPT/HCPCS: 36415; 71275; 80053; 84484; 85025; 85379; 85610; 85730; 93005; 93306; 94660; 96365; 96376; 99285

== ENCOUNTER 2019-10-07 19:14 | Observation (INO) | payer MEDICARE, BC ==
[2019-10-07] MEDS ORDERED: IPRATROPIUM-ALBUTEROL 3 ML NEB INHALATION STA (19:44)
[2019-10-07] MEDS ORDERED: SODIUM CHLORIDE 0.9% 1,000 ML IV STA (19:44)
--- NOTE | 2019-10-07 20:22 | ED ---
SOB HPI - General Chief Complaint: Shortness of Breath Stated Complaint: SOB Time Seen by Provider: 10/07/19 19:44 Source: patient, RN notes reviewed, old records reviewed Mode of arrival: wheelchair Limitations: no limitations - History of Present Illness Initial Comments: This 34-year-old female 2 years. She presents for evaluation regards to shortne ss of breath severe shortness of breath and difficulty catching her breath. Patient states the breathing treatment in route did help for EMS to stop for breath and another breathing treatment on arrival in ER. Started to feel better. Patient is complaining of some pain to her back pain but area for fall as of recent. Patient has normal. She is a walker no loss of bowel or bladder. 9 recent fever she was having increased cough congestion nourished travel history she was evident most recent hospital admissions MD Complaint: shortness of breath, cough -: days(s) Severity: moderate, severe Severity scale (1-10): 7 Consistency: constant Improves With: oxygen, rest, bronchodilators, medication Worsens With: exertion, movement Known History Of: asthma, recurrent pneumonia Context: recent URI, anxiety Associated Symptoms: pain with inspiration, cough, sputum production Treatments Prior to Arrival: none - Related Data Home Medications Medication Instructions Recorded Confirmed Atorvastatin Calcium [Lipitor] 10 mg PO HS 08/13/19 08/13/19 Furosemide [Lasix] 20 mg PO DAILY PRN 08/13/19 08/13/19 Pregabalin [Lyrica] 75 mg PO BID 08/13/19 08/13/19 amLODIPine BESYLATE [Norvasc] 2.5 mg PO DAILY 08/13/19 08/13/19 cloNIDine HCL [Catapres] 0.1 mg PO BID 08/13/19 08/13/19 Previous Rx's Medication Instructions Recorded Apixaban [Eliquis Starter Pack 0 mg PO DIRECTED 30 Days #1 pack 08/14/19 (for VTE)] glipiZIDE [Glucotrol] 2.5 mg PO AC-BRKFST #30 tablet 08/15/19 metFORMIN HCL [Glucophage] 1,000 mg PO BID #60 tab 08/15/19 Allergies Allergy/AdvReac Type Severity Reaction Status Date / Time rofecoxib [From Vioxx] AdvReac Confusion Verified 10/07/19 19:35 Review of Systems ROS Statement: Those systems with pertinent positive or pertinent negative responses have been documented in the HPI. ROS Other: All systems not noted in ROS Statement are negative. Past Medical History Past Medical History: Cancer, Diabetes Mellitus, Pulmonary Embolus (PE) Additional Past Medical History / Comment(s): kidney disease History of Any Multi-Drug Resistant Organisms: None Reported Past Surgical History: Appendectomy, Hernia Repair Additional Past Surgical History / Comment(s): kidney removal r/t ca Past Psychological History: No Psychological Hx Reported Smoking Status: Never smoker Past Alcohol Use History: None Reported Past Drug Use History: None Reported - Past Family History Mother Family Medical History: Cancer Father Family Medical History: Unable to Obtain General Exam Limitations: no limitations General appearance: alert, in no apparent distress, in distress, obese Head exam: Present: atraumatic, normocephalic, normal inspection Eye exam: Present: normal appearance, PERRL, EOMI. Absent: scleral icterus, conjunctival injection, periorbital swelling ENT exam: Present: normal exam, mucous membranes moist Neck exam: Present: normal inspection. Absent: tenderness, meningismus, lymphadenopathy Respiratory exam: Present: respiratory distress, wheezes, accessory muscle use, decreased breath sounds, prolonged expiratory. Absent: rales, rhonchi, stridor Cardiovascular Exam: Present: regular rate, normal rhythm, tachycardia, normal heart sounds. Absent: systolic murmur, diastolic murmur, rubs, gallop, clicks GI/Abdominal exam: Present: soft, normal bowel sounds. Absent: distended, tenderness, guarding, rebound, rigid Extremities exam: Present: normal inspection, full ROM, normal capillary refill. Absent: tenderness, pedal edema, joint swelling, calf tenderness Back exam: Present: normal inspection Neurological exam: Present: alert, oriented X3, CN II-XII intact Psychiatric exam: Present: normal affect, normal mood Skin exam: Present: warm, dry, intact, normal color. Absent: rash Course Vital Signs 10/07/19 10/07/19 10/07/19 19:27 20:20 20:38 Temperature 98.3 F Pulse Rate 125 H 121 H 123 H Respiratory 28 H 22 18 Rate Blood Pressure 135/72 O2 Sat by Pulse 90 L Oximetry - Reevaluation(s) Reevaluation #1: 10/07/19 22:03 Medical records reviewed Reevaluation #2: 10/07/19 22:03 Patient will have more breathing treatments here in the ER as symptoms are returning - Consultations Consultation #1: Dr. Viveros is agreeable to admit Medical Decision Making - Medical Decision Making 74 female presents today for evaluation regards to shortness of breath with cough, patient will not for persistent breathing treatments and monitoring of Hypoxia - Lab Data Result diagrams: 10/07/19 20:37 10/07/19 20:37 Lab Results 10/07/19 10/07/19 10/07/19 Range/Units 20:37 20:37 20:37 WBC 8.7 (3.8-10.6) k/uL RBC 4.59 (3.80-5.40) m/uL Hgb 13.1 (11.4-16.0) gm/dL Hct 41.4 (34.0-46.0) % MCV 90.3 D (80.0-100.0) fL MCH 28.6 (25.0-35.0) pg MCHC 31.6 (31.0-37.0) g/dL RDW 14.0 (11.5-15.5) % Plt Count 294 (150-450) k/uL Neutrophils % 56 % Lymphocytes % 30 % Monocytes % 6 % Eosinophils % 4 % Basophils % 1 % Neutrophils # 4.9 (1.3-7.7) k/uL Lymphocytes # 2.7 (1.0-4.8) k/uL Monocytes # 0.5 (0-1.0) k/uL Eosinophils # 0.4 (0-0.7) k/uL Basophils # 0.1 (0-0.2) k/uL Hypochromasia Marked PT 10.2 (9.0-12.0) sec INR 0.9 (<1.2) APTT 25.1 (22.0-30.0) sec Sodium 138 (137-145) mmol/L Potassium 5.3 H (3.5-5.1) mmol/L Chloride 102 (98-107) mmol/L Carbon Dioxide 29 (22-30) mmol/L Anion Gap 7 mmol/L BUN 18 H (7-17) mg/dL Creatinine 0.96 (0.52-1.04) mg/dL Est GFR (CKD-EPI)AfAm 67 (>60 ml/min/1.73 sqM) Est GFR (CKD-EPI)NonAf 58 (>60 ml/min/1.73 sqM) Glucose 328 H (74-99) mg/dL Calcium 9.4 (8.4-10.2) mg/dL Magnesium 1.6 (1.6-2.3) mg/dL Total Bilirubin 0.5 (0.2-1.3) mg/dL AST 18 (14-36) U/L ALT 13 (9-52) U/L Alkaline Phosphatase 66 (38-126) U/L Troponin I (0.000-0.034) ng/mL NT-Pro-B Natriuret Pep pg/mL Total Protein 7.2 (6.3-8.2) g/dL Albumin 4.0 (3.5-5.0) g/dL 10/07/19 10/07/19 Range/Units 20:37 20:37 WBC (3.8-10.6) k/uL RBC (3.80-5.40) m/uL Hgb (11.4-16.0) gm/dL Hct (34.0-46.0) % MCV (80.0-100.0) fL MCH (25.0-35.0) pg MCHC (31.0-37.0) g/dL RDW (11.5-15.5) % Plt Count (150-450) k/uL Neutrophils % % Lymphocytes % % Monocytes % % Eosinophils % % Basophils % % Neutrophils # (1.3-7.7) k/uL Lymphocytes # (1.0-4.8) k/uL Monocytes # (0-1.0) k/uL Eosinophils # (0-0.7) k/uL Basophils # (0-0.2) k/uL Hypochromasia PT (9.0-12.0) sec INR (<1.2) APTT (22.0-30.0) sec Sodium (137-145) mmol/L Potassium (3.5-5.1) mmol/L Chloride (98-107) mmol/L Carbon Dioxide (22-30) mmol/L Anion Gap mmol/L BUN (7-17) mg/dL Creatinine (0.52-1.04) mg/dL Est GFR (CKD-EPI)AfAm (>60 ml/min/1.73 sqM) Est GFR (CKD-EPI)NonAf (>60 ml/min/1.73 sqM) Glucose (74-99) mg/dL Calcium (8.4-10.2) mg/dL Magnesium (1.6-2.3) mg/dL Total Bilirubin (0.2-1.3) mg/dL AST (14-36) U/L ALT (9-52) U/L Alkaline Phosphatase (38-126) U/L Troponin I <0.012 (0.000-0.034) ng/mL NT-Pro-B Natriuret Pep 360 pg/mL Total Protein (6.3-8.2) g/dL Albumin (3.5-5.0) g/dL - EKG Data -: EKG Interpreted by Me (EKG shows sinus tachycardia rate of 122, OH 176, QRS 98, QTC 433) - Radiology Data Radiology results: report reviewed (CXR is negative for acute disease), image reviewed Disposition Clinical Impression: Acute exacerbation of chronic obstructive pulmonary disease, Hypoxia Disposition: ADMITTED IP TO THIS HOSP Condition: Fair Is patient prescribed a controlled substance at d/c from ED?: No Referrals: Nonstaff,Physician [REFERRING] - 1-2 days
[2019-10-07 21:06] LABS: Basophils # (A) 0.1 k/uL (0-0.2); Basophils % (A) 1 %; Eosinophils # (A) 0.4 k/uL (0-0.7); Eosinophils % (A) 4 %; HCT 41.4 % (34.0-46.0); HGB 13.1 gm/dL (11.4-16.0); Hypochromasia Marked; Lymphocytes # (A) 2.7 k/uL (1.0-4.8); Lymphocytes % (A) 30 %; MCH 28.6 pg (25.0-35.0); MCHC 31.6 g/dL (31.0-37.0); Mean Platelet Volume 6.2; Monocytes # (A) 0.5 k/uL (0-1.0); Monocytes % (A) 6 %; Neutrophils # (A) 4.9 k/uL (1.3-7.7); Neutrophils % (A) 56 %; Platelet Count 294 k/uL (150-450); RBC 4.59 m/uL (3.80-5.40); WBC 8.7 k/uL (3.8-10.6)
[2019-10-07 21:09] LABS: MCV 90.3 fL (80.0-100.0)
[2019-10-07 21:15] LABS: INR 0.9 (<1.2); Partial Thromboplastin Time 25.1 sec (22.0-30.0); Prothrombin Time 10.2 sec (9.0-12.0)
--- NOTE | 2019-10-07 21:15 | XR ---
EXAMINATION TYPE: XR chest 2V DATE OF EXAM: 10/07/2019 COMPARISON: NONE HISTORY: Short of breath TECHNIQUE: Frontal and lateral views of the chest are obtained. FINDINGS: There is some elevation of the left diaphragm. There is no heart failure. There is no pulm onary consolidation. There is no sign of pleural effusion. There is right shoulder prosthesis. IMPRESSION: Elevated right diaphragm. 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 No evidence of acute lung disease.
[2019-10-07 21:17] LABS: Calcium 9.4 mg/dL (8.4-10.2); Magnesium 1.6 mg/dL (1.6-2.3); Potassium 5.3 mmol/L (3.5-5.1); Total Bilirubin 0.5 mg/dL (0.2-1.3); Total Protein 7.2 g/dL (6.3-8.2)
[2019-10-08] MEDS: IPRATROPIUM-ALBUTEROL 3 ML NEB INHALATION SCH ×4 (06:55→19:55)
[2019-10-08 07:21] LABS: Glucose,Whole Blood 264 mg/dL (75-99)
[2019-10-08] MEDS ORDERED: ENOXAPARIN 40 MG/0.4 ML SYRINGE SQ SCH (09:00)
[2019-10-08] MEDS ORDERED: FUROSEMIDE 20 MG TAB PO PRN (09:54)
--- NOTE | 2019-10-08 09:55 | P.CNPUL ---
History of Present Illness Consult date: 10/08/19 Reason for consult: dyspnea History of present illness: 74-year-old female patient presented to the emergency department because of worsening shortness of breath and she was having difficulties in breathing. She had increased cough and congestion noted the patient was in the hospital back in August 2019 for bilateral leg pain particularly on the right and she was found to have a DVT in the right lower extremity. Subsequently a CT angiogram of the chest showed pulmonary emboli in the segmental branches left more than right more prominent in the left lower lobe. The echocardiogram showed a right ventricular strain pattern and the CT angiogram showed evidence of flattening of the interventricular septum. Hemodynamically she remains stable. She was placed on Eliquis and she was discharged home. She has diabetes. She has history of kidney cancer and she has undergone a previous nephrectomy. She was taken out anticoagulation on outpatient basis. Her chest x-ray from now showing some elevation of the left hemidiaphragm and this was seen on the previous CAT scan of the chest and obviously this is not a new finding. At the time of arrival she was quite bronchospastic and wheezy. Review of her echocardiogram also showed a PA pressure in the order of 55 consistent with moderate to severe pulmonary hypertension. LV function was within normal limits. She has obvious kyphoscoliosis of her thoracic spine also. There is also some increased swelling in the lower extremities bilaterally. Review of Systems Constitutional: Denies chills, Denies fever Eyes: denies blurred vision, denies pain Ears, nose, mouth and throat: Denies headache, Denies sore throat Cardiovascular: Denies chest pain, Denies shortness of breath Respiratory: Reports dyspnea, increased wheezing and coughing also. He Gastrointestinal: Denies abdominal pain, Denies diarrhea, Denies nausea, Denies vomiting Genitourinary: Denies dysuria, Denies hematuria Musculoskeletal: Denies myalgias Musculoskeletal: right: ankle pain Integumentary: Denies pruritus, Denies rash Neurological: Denies numbness, Denies weakness Psychiatric: Denies anxiety, Denies depression Endocrine: Denies fatigue, Denies weight change Past Medical History Past Medical History: Cancer, Diabetes Mellitus, Hyperlipidemia, Pulmonary Embolus (PE) Additional Past Medical History / Comment(s): Kidney cancer post-nephrectomy on the right, recent diagnosis of DVT of the right lower extremity, pulmonary embolism, chronic elevation of the left hemidiaphragm, obstructive sleep apnea currently not receiving any treatment, thoracolumbar kyphoscoliosis, diabetes mellitus History of Any Multi-Drug Resistant Organisms: None Reported Past Surgical History: Appendectomy, Hernia Repair Additional Past Surgical History / Comment(s): kidney removal r/t ca Past Psychological History: No Psychological Hx Reported Smoking Status: Never smoker Past Alcohol Use History: None Reported Past Drug Use History: None Reported - Past Family History Mother Family Medical History: Cancer Father Family Medical History: Unable to Obtain Medications and Allergies Home Medications Medication Instructions Recorded Confirmed Type Atorvastatin Calcium [Lipitor] 10 mg PO HS 08/13/19 10/07/19 History Furosemide [Lasix] 20 mg PO DAILY PRN 08/13/19 10/07/19 History Pregabalin [Lyrica] 75 mg PO BID 08/13/19 10/07/19 History amLODIPine BESYLATE [Norvasc] 2.5 mg PO DAILY 08/13/19 10/07/19 History cloNIDine HCL [Catapres] 0.1 mg PO BID 08/13/19 10/07/19 History glipiZIDE [Glucotrol] 2.5 mg PO AC-BRKFST 10/07/19 10/07/19 History Apixaban [Eliquis] 5 mg PO BID 10/08/19 10/08/19 History metFORMIN HCL [Glucophage] 500 mg PO BID 10/08/19 10/08/19 History Allergies Allergy/AdvReac Type Severity Reaction Status Date / Time rofecoxib [From Vioxx] AdvReac Confusion Verified 10/07/19 22:35 Physical Exam Vitals: Vital Signs Temp Pulse Pulse Resp BP BP Pulse Ox 10/08/19 08:00 18 10/08/19 07:07 112 H 10/08/19 06:57 107 H 10/08/19 06:20 97.7 F 107 H 18 122/73 96 10/07/19 20:38 123 H 18 10/07/19 20:20 121 H 22 10/07/19 19:27 98.3 F 125 H 28 H 135/72 90 L Intake and Output 10/07/19 10/08/19 10/08/19 22:59 06:59 14:59 Other: # Voids 1 1 # Bowel Movements 1 1 Weight 117.934 kg 117.934 kg Obese, comfortable no acute distress Head exam was generally normal. There was no scleral icterus or corneal arcus. Mucous membranes were moist. Neck was supple and without jugular venous distension, thyromegaly, or carotid bruits. Carotids were easily palpable bilaterally. There was no adenopathy. The patient has limited because for with significant crowding of the posterior oropharynx. Lungs sounds are diminished bilaterally along with scattered expiratory wheezes and breath sounds are diminished in left lung base. There is pronation of expiratory phase of breathing. Breath sounds are quite diminished bilaterally. Cardiac exam revealed the PMI to be normally situated and sized. The rhythm was regular and no extrasystoles were noted during several minutes of auscultation. The first and second heart sounds were normal and physiologic splitting of the second heart sound was noted. There were no murmurs, rubs, clicks, or gallops. Abdominal exam revealed normal bowel sounds. The abdomen was soft, non-tender, and without masses, organomegaly, or appreciable enlargement of the abdominal aorta. Extremities are slightly swollen with a right lower extremity being slightly more swollen compared to the left Neurologically awake and alert and there is no focal neurological deficit Examination of the skin revealed no evidence of significant rashes, suspicious appearing nevi or other concerning lesions. Results - Laboratory Findings CBC and BMP: 10/07/19 20:37 10/07/19 20:37 ABG WBC 8.7 k/uL (3.8-10.6) 10/07/19 20:37 RBC 4.59 m/uL (3.80-5.40) 10/07/19 20:37 Hgb 13.1 gm/dL (11.4-16.0) 10/07/19 20:37 Hct 41.4 % (34.0-46.0) 10/07/19 20:37 MCV 90.3 fL (80.0-100.0) D 10/07/19:37 MCH 28.6 pg (25.0-35.0) 10/07/19 20:37 MCHC 31.6 g/dL (31.0-37.0) 10/07/19 20:37 RDW 14.0 % (11.5-15.5) 10/07/19 20:37 Plt Count 294 k/uL (150-450) 10/07/19 20:37 Neutrophils % 56 % 10/07/19 20:37 Lymphocytes % 30 % 10/07/19 20:37 Monocytes % 6 % 10/07/19 20:37 Eosinophils % 4 % 10/07/19 20:37 Basophils % 1 % 10/07/19 20:37 Neutrophils # 4.9 k/uL (1.3-7.7) 10/07/19 20:37 Lymphocytes # 2.7 k/uL (1.0-4.8) 10/07/19 20:37 Monocytes # 0.5 k/uL (0-1.0) 10/07/19 20:37 Eosinophils # 0.4 k/uL (0-0.7) 10/07/19 20:37 Basophils # 0.1 k/uL (0-0.2) 10/07/19 20:37 Hypochromasia Marked 10/07/19 20:37 PT 10.2 sec (9.0-12.0) 10/07/19 20:37 INR 0.9 (<1.2) 10/07/19 20:37 APTT 25.1 sec (22.0-30.0) 10/07/19 20:37 Sodium 138 mmol/L (137-145) 10/07/19 20:37 Potassium 5.3 mmol/L (3.5-5.1) H 10/07/19 20:37 Chloride 102 mmol/L (98-107) 10/07/19 20:37 Carbon Dioxide 29 mmol/L (22-30) 10/07/19 20:37 Anion Gap 7 mmol/L 10/07/19 20:37 BUN 18 mg/dL (7-17) H 10/07/19 20:37 Creatinine 0.96 mg/dL (0.52-1.04) 10/07/19 20:37 Est GFR (CKD-EPI)AfAm 67 (>60 ml/min/1.73 sqM) 10/07/19 20:37 Est GFR (CKD-EPI)NonAf 58 (>60 ml/min/1.73 sqM) 10/07/19 20:37 Glucose 328 mg/dL (74-99) H 10/07/19 20:37 POC Glucose (mg/dL) 264 mg/dL (75-99) H 11/26/19 07:17 POC Glu [place] Head ID Sroka, [place] 10/08/19 07:17 Calcium 9.4 mg/dL (8.4-10.2) 10/07/19 20:37 Magnesium 1.6 mg/dL (1.6-2.3) 10/07/19 20:37 Total Bilirubin 0.5 mg/dL (0.2-1.3) 10/07/19 20:37 AST 18 U/L (14-36) 10/07/19 20:37 ALT 13 U/L (9-52) 10/07/19 20:37 Alkaline Phosphatase 66 U/L (38-126) 10/07/19 20:37 Troponin I <0.012 ng/mL (0.000-0.034) 10/07/19 20:37 NT-Pro-B Natriuret Pep 360 pg/mL 10/07/19 20:37 Total Protein 7.2 g/dL (6.3-8.2) 10/07/19 20:37 Albumin 4.0 g/dL (3.5-5.0) 10/07/19 20:37 PT/INR, D-dimer PT 10.2 sec (9.0-12.0) 10/07/19 20:37 INR 0.9 (<1.2) 10/07/19 20:37 Abnormal lab findings: Abnormal Labs 10/07/19 10/08/19 20:37 07:17 Potassium 5.3 H BUN 18 H Glucose 328 H POC Glucose (mg/dL) 264 H - Diagnostic Findings Chest x-ray: image reviewed Assessment and Plan Plan: 1 acute bronchitis with secondary bronchospasm wheezing and shortness of breath. Findings on the chest x-ray are rather chronic. The patient has chronic left hemidiaphragmatic elevation along with scoliosis of the thoracic spine. She was also treated recently for pulmonary embolism and she is on Eliquis on outpatient basis and this was attributed to a right lower extremity DVT. Presentation is most consistent with an acute bronchitis for now 2 morbid obesity 3 obstructive sleep apnea currently not receiving any treatment 4 chronic left hemidiaphragmatic elevation 5 thoracolumbar kyphoscoliosis 6 recent pulmonary embolism related to a right lower extremity DVT maintained on anticoagulation 7 secondary pulmonary hypertension, likely chronic although the possibility of pulmonary hypertension setting of an acute PE cannot be completely ruled out. I feel that the findings are rather chronic knowing that the clot burden was not significant and there may be an underlying sleep breathing disorder 8 chronic exertional dyspnea 9 diabetes mellitus 10 hypertension 11 hyperlipidemia 12 previous history of recurrent nephrectomy related to a previous history of renal cancer Plan Put the patient on DuoNeb nebulized treatments around the clock. IV Solu- Medrol. Insulin sliding scale coverage. Resume her diabetic medications. Called Isaac [facility]oss[facility] nebulized treatments twice a day. Resume Eliquis and stop the subcu Lovenox. IV fluids to KVO. Outpatient follow-up regarding pulmonary function test and further evaluation regarding her sleep breathing disorder/obstructive sleep apnea. 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 For now, we'll treat her acute bronchitis and will proceed accordingly. We'll continue to follow.
[2019-10-08] MEDS: metFORMIN 500 MG TAB PO SCH ×2 (10:32→20:33)
[2019-10-08] MEDS: PREGABALIN 75 MG CAP PO SCH ×2 (10:32→20:34)
[2019-10-08] MEDS: APIXABAN 5 MG TAB PO SCH ×2 (10:33→20:33)
[2019-10-08] MEDS: methylPREDNISolone SOD SUCCI 40 MG/ML 1 ML VIAL IV SCH ×3 (10:33→23:34)
[2019-10-08] MEDS: cloNIDine HCL 0.1 MG TAB PO SCH ×2 (10:33→20:34)
[2019-10-08 11:09] LABS: Glucose,Whole Blood 294 mg/dL (75-99)
[2019-10-08] MEDS: INSULIN ASPART (NovoLOG) 100 UNIT/ML VIAL SQ SCH ×3 (11:55→20:34)
[2019-10-08] MEDS: amLODIPine 2.5 MG TAB PO SCH (11:55)
--- NOTE | 2019-10-08 13:27 | P.HPIM ---
History of Present Illness This is a pleasant 74 years old female with past medical history of pulmonary embolism on Eliquis, hyperlipidemia, diabetes mellitus, kidney cancer status post right nephrectomy. Presents because of dyspnea of 2 weeks getting worse over the last 4-5 days associated with cough and white phlegm no chest pain, patient also stated that she fell at home. She denies chest pain or abdominal pain or change in bowel habits. No nausea vomiting. She is still short of breath and has difficulty finishing sentences. Vitals are stable. Unremarkable CBC, BMP potassium 5.3 which is mildly elevated, sugar is elevated to 264 to 328. Liver enzymes are not elevated. Chest x-ray: Showed elevated right diaphragm could be related to diaphragm paralysis with no acute process. EKG, showing sinus tachycardia at 122 with QTC of 433, no significant ST-T changes. Review of Systems CONSTITUTIONAL: No fever, no malaise, no fatigue. HEENT: No recent visual problems or hearing problems. Denied any sore throat. CARDIOVASCULAR: no palpitations, no syncope. PULMONARY: no hemoptysis. GASTROINTESTINAL: No diarrhea, no nausea, no vomiting, no abdominal pain. Normoactive bowel sounds. NEUROLOGICAL: No headaches, no weakness, no numbness. HEMATOLOGICAL: Denies any bleeding or petechiae. GENITOURINARY: Denies any burning micturition, frequency, or urgency. MUSCULOSKELETAL/RHEUMATOLOGICAL: Denies any joint pain, swelling, or any muscle pain. ENDOCRINE: Denies any polyuria or polydipsia. Past Medical History Past Medical History: Cancer, Diabetes Mellitus, Hyperlipidemia, Pulmonary Embolus (PE) Additional Past Medical History / Comment(s): Kidney cancer post-nephrectomy on the right, recent diagnosis of DVT of the right lower extremity, pulmonary embolism, chronic elevation of the left hemidiaphragm, obstructive sleep apnea currently not receiving any treatment, thoracolumbar kyphoscoliosis, diabetes mellitus History of Any Multi-Drug Resistant Organisms: None Reported Past Surgical History: Appendectomy, Hernia Repair Additional Past Surgical History / Comment(s): kidney removal r/t ca Past Psychological History: No Psychological Hx Reported Smoking Status: Never smoker Past Alcohol Use History: None Reported Past Drug Use History: None Reported - Past Family History Mother Family Medical History: Cancer Father Family Medical History: Unable to Obtain Medications and Allergies Home Medications Medication Instructions Recorded Confirmed Type Atorvastatin Calcium [Lipitor] 10 mg PO HS 08/13/19 10/07/19 History Furosemide [Lasix] 20 mg PO DAILY PRN 08/13/19 10/07/19 History Pregabalin [Lyrica] 75 mg PO BID 08/13/19 10/07/19 History amLODIPine BESYLATE [Norvasc] 2.5 mg PO DAILY 08/13/19 10/07/19 History cloNIDine HCL [Catapres] 0.1 mg PO BID 08/13/19 10/07/19 History glipiZIDE [Glucotrol] 2.5 mg PO AC-BRKFST 10/07/19 10/07/19 History Apixaban [Eliquis] 5 mg PO BID 10/08/19 10/08/19 History metFORMIN HCL [Glucophage] 500 mg PO BID 10/08/19 10/08/19 History Allergies Allergy/AdvReac Type Severity Reaction Status Date / Time rofecoxib [From Vioxx] AdvReac Confusion Verified 10/07/19 22:35 Physical Exam Vitals: Vital Signs Temp Pulse Pulse Resp BP BP Pulse Ox 10/08/19 11:52 98.6 F 99 19 138/74 95 10/08/19 11:19 96 10/08/19 11:07 95 10/08/19 08:00 18 10/08/19 07:07 112 H 10/08/19 06:57 107 H 10/08/19 06:20 97.7 F 107 H 18 122/73 96 10/07/19 20:38 123 H 18 10/07/19 20:20 121 H 22 10/07/19 19:27 98.3 F 125 H 28 H 135/72 90 L Intake and Output 10/07/19 10/08/19 10/08/19 22:59 06:59 14:59 Other: # Voids 1 1 # Bowel Movements 1 1 Weight 117.934 kg 117.934 kg GENERAL: The patient is alert and oriented x3, not in any acute distress. Well developed, well nourished. HEENT: Pupils are round and equally reacting to light. EOMI. No scleral icterus. No conjunctival pallor. Normocephalic, atraumatic. No pharyngeal erythema. No thyromegaly. CARDIOVASCULAR: S1 and S2 present. No murmurs, rubs, or gallops. -PULMONARY: Patient is tachypneic. Chest is clear to auscultation, expiratory wheezing on both sides ABDOMEN: Soft, nontender, nondistended, normoactive bowel sounds. No palpable organomegaly. MUSCULOSKELETAL: No joint swelling or deformity. EXTREMITIES: No cyanosis, clubbing, or pedal edema. NEUROLOGICAL: Gross neurological examination did not reveal any focal deficits. SKIN: No rashes. No petechiae Results CBC & Chem 7: 10/07/19 20:37 10/07/19 20:37 Labs: Abnormal Lab Results - Last 24 Hours (Table) 10/07/19 10/08/19 10/08/19 Range/Units 20:37 07:17 11:07 Potassium 5.3 H (3.5-5.1) mmol/L BUN 18 H (7-17) mg/dL Glucose 328 H (74-99) mg/dL POC Glucose (mg/dL) 264 H 294 H (75-99) mg/dL Thrombosis Risk Factor Assmnt - Choose All That Apply Any of the Below Risk Factors Present?: Yes Each Factor Represents 1 point: Obesity (BMI >25), Swollen legs (current) Other Risk Factors: Yes Each Risk Factor Represents 3 Points: Age 75 years or older, History of DVT/PE Thrombosis Risk Factor Assessment Total Risk Factor Score: 8 Thrombosis Risk Factor Assessment Level: High Risk Assessment and Plan Assessment: Acute bronchitis Fall Elevated right diaphragm, could be related to diaphragmatic paralysis Recent history of pulmonary embolism/DVT on Eliquis Hyperlipidemia History of right kidney cancer status post nephrectomy Plan: This is a pleasant 74 years old female who presents with acute bronchitis. Appreciate pulmonary input. Follow-up recommendation. Continue with a breathing treatment, bronchodilator, steroids, oxygen as needed. We'll ask for physical therapy evaluation Labs and medication were reviewed.. Continue same treatment. Continue with symptomatic treatment. Resume home medication. Monitor lytes and vitals. DVT and GI prophylaxis. Further recommendations of the clinical course of the patient DVT prophylaxis: Eliquis GI Prophylaxis: Pepcid PT/OT: Pending
[2019-10-08 15:54] LABS: Glucose,Whole Blood 327 mg/dL (75-99)
[2019-10-08] MEDS: BUDESONIDE 1 MG/2 ML NEBU INHALATION SCH (19:55)
[2019-10-08] MEDS: FORMOTEROL FUMARATE 20 MCG/2 ML NEBU INHALATION SCH (19:55)
[2019-10-08 20:11] LABS: Glucose,Whole Blood 310 mg/dL (75-99)
[2019-10-08] MEDS ORDERED: ATORVASTATIN 10 MG TAB PO SCH (21:00)
[2019-10-09 00:01] VITALS: RESP 18
[2019-10-09 06:43] LABS: Glucose,Whole Blood 314 mg/dL (75-99)
[2019-10-09] MEDS: IPRATROPIUM-ALBUTEROL 3 ML NEB INHALATION SCH ×2 (08:02→15:15)
[2019-10-09] MEDS: BUDESONIDE 1 MG/2 ML NEBU INHALATION SCH (08:02)
[2019-10-09] MEDS: FORMOTEROL FUMARATE 20 MCG/2 ML NEBU INHALATION SCH (08:02)
[2019-10-09] MEDS: cloNIDine HCL 0.1 MG TAB PO SCH (08:13)
[2019-10-09] MEDS: APIXABAN 5 MG TAB PO SCH (08:13)
[2019-10-09] MEDS: metFORMIN 500 MG TAB PO SCH (08:13)
[2019-10-09] MEDS: amLODIPine 2.5 MG TAB PO SCH (08:14)
[2019-10-09] MEDS: PREGABALIN 75 MG CAP PO SCH (08:14)
[2019-10-09] MEDS: methylPREDNISolone SOD SUCCI 40 MG/ML 1 ML VIAL IV SCH (08:14)
[2019-10-09] MEDS: INSULIN ASPART (NovoLOG) 100 UNIT/ML VIAL SQ SCH ×2 (08:15→11:49)
[2019-10-09 08:20] VITALS: BP 123/87; TEMP 97.9
[2019-10-09 08:23] VITALS: PULSE 94
--- NOTE | 2019-10-09 11:15 | P.PN ---
Subjective Progress Note Date: 10/09/19 74-year-old female patient presented to the emergency department because of worsening shortness of breath and she was having difficulties in breathing. She had increased cough and congestion noted the patient was in the hospital back in August 2019 for bilateral leg pain particularly on the right and she was found to have a DVT in the right lower extremity. Subsequently a CT angiogram of the chest showed pulmonary emboli in the segmental branches left more than right more prominent in the left lower lobe. The echocardiogram showed a right ventricular strain pattern and the CT angiogram showed evidence of flattening of the interventricular septum. Hemodynamically she remains stable. She was placed on Eliquis and she was discharged home. She has diabetes. She has history of kidney cancer and she has undergone a previous nephrectomy. She was taken out anticoagulation on outpatient basis. Her chest x-ray from now showing some elevation of the left hemidiaphragm and this was seen on the previous CAT scan of the chest and obviously this is not a new finding. At the time of arrival she was quite bronchospastic and wheezy. Review of her echocardiogram also showed a PA pressure in the order of 55 consistent with moderate to severe pulmonary hypertension. LV function was within normal limits. She has obvious kyphoscoliosis of her thoracic spine also. There is also some increased swelling in the lower extremities bilaterally. Today's evaluation of 10/09/2019 the patient is feeling better. She is less short of breath compared to yesterday. Bronchospasm and wheezing has subsided significantly. She is currently on 2 L of oxygen by nasal cannula. No significant swelling in lower extremities. No angina. No palpitations. No other significant events overnight. She is on IV Solu-Medrol 40 mg every 6 hours. Objective - Vital Signs Vital signs: Vital Signs Temp 97.9 F 10/09/19 08:00 Pulse 94 10/09/19 08:23 Resp 18 10/09/19 08:00 BP 123/87 10/09/19 08:00 Pulse Ox 98 10/09/19 08:00 Intake & Output 10/08/19 10/09/19 10/09/19 18:59 06:59 18:59 Intake Total 400 240 Balance 400 240 Intake: Oral 240 Other 400 Other: # Voids 1 1 # Bowel Movements 1 - Exam Obese, comfortable no acute distress Head exam was generally normal. There was no scleral icterus or corneal arcus. Mucous membranes were moist. Neck was supple and without jugular venous distension, thyromegaly, or carotid bruits. Carotids were easily palpable bilaterally. There was no adenopathy. The patient has limited because for with significant crowding of the posterior oropharynx. Lungs sounds are diminished and there is significant improvement in her vocal spasm or wheezing. Cardiac exam revealed the PMI to be normally situated and sized. The rhythm was regular and no extrasystoles were noted during several minutes of auscultation. The first and second heart sounds were normal and physiologic splitting of the second heart sound was noted. There were no murmurs, rubs, clicks, or gallops. Abdominal exam revealed normal bowel sounds. The abdomen was soft, non-tender, and without masses, organomegaly, or appreciable enlargement of the abdominal aorta. Extremities are slightly swollen with a right lower extremity being slightly more swollen compared to the left Neurologically awake and alert and there is no focal neurological deficit Examination of the skin revealed no evidence of significant rashes, suspicious appearing nevi or other concerning lesions. - Labs CBC & Chem 7: 10/07/19 20:37 10/07/19 20:37 Labs: Abnormal Lab Results - Last 24 Hours (Table) 10/08/19 10/08/19 10/08/19 Range/Units 11:07 15:53 20:09 POC Glucose (mg/dL) 294 H 327 H 310 H (75-99) mg/dL 10/09/19 Range/Units 06:38 POC Glucose (mg/dL) 314 H (75-99) mg/dL Assessment and Plan Plan: 1 acute bronchitis with secondary bronchospasm wheezing and shortness of breath. Findings on the chest x-ray are rather chronic. The patient has chronic left hemidiaphragmatic elevation along with scoliosis of the thoracic spine. She was also treated recently for pulmonary embolism and she is on Eliquis on outpatient basis and this was attributed to a right lower extremity DVT. Presentation is most consistent with an acute bronchitis for now On 10/09/2019, the patient is feeling better. She is less short of breath. She is less bronchospastic. She is less wheezy. She is insisting on going home today. I think is reasonable as long as she is able to maintain her pulse ox above 90% and she is able to get a home nebulizer along with a prednisone burst taper to be completed on outpatient basis. 2 morbid obesity 3 obstructive sleep apnea currently not receiving any treatment 4 chronic left hemidiaphragmatic elevation 5 thoracolumbar kyphoscoliosis 6 recent pulmonary embolism related to a right lower extremity DVT maintained on anticoagulation 7 secondary pulmonary hypertension, likely chronic although the possibility of pulmonary hypertension setting of an acute PE cannot be completely ruled out. I feel that the findings are rather chronic knowing that the clot burden was not s ignificant and there may be an underlying sleep breathing disorder 8 chronic exertional dyspnea 9 diabetes mellitus 10 hypertension 11 hyperlipidemia 12 previous history of recurrent nephrectomy related to a previous history of renal cancer Plan Clinically improved. Assess for home O2. This patient a prednisone burst taper. Arrange a home nebulizer. Jordan avila last treatment [id number]. We'll continue to follow on outpatient basis.
[2019-10-09 11:41] LABS: Glucose,Whole Blood 374 mg/dL (75-99)
[2019-10-09 14:15] LABS: Hemoglobin A1C 10.2 % (4.0-6.0)
--- NOTE | 2019-10-11 07:15 | DS ---
DISCHARGE SUMMARY DATE OF ADMISSION: 10/07/2019 DATE OF DISCHARGE: 10/09/2019 FINAL DIAGNOSES: 1. Acute tracheobronchitis resulting in acute bronchospasm. 2. Morbid obesity, body mass index 49.1. 3. Diabetes mellitus type 2. 4. Hyperlipidemia. 5. Chronic pulmonary embolism for which patient is on Eliquis. 6. Chronic deep venous thrombosis of the right lower extremity. 7. Chronic elevation of the left hemidiaphragm. 8. Obstructive sleep apnea, does not use any machine. 9. Thoracolumbar kyphoscoliosis. 10.Nephrectomy due to kidney cancer. HOSPITAL COURSE: This patient presented with shortness of breath, cough, congestion. Forest to be acute bronchitis with bronchospasm. Treated with some steroids and bronchodilators. Feeling better by the time of discharge. CONSULTATION: Dr. Lucero from Pulmonary. INVESTIGATIONS: White count 8.7, hemoglobin 13.1, platelets 294, creatinine 0.96. Troponin negative. ProBNP 360. EKG-sinus tachycardia. Chest x-ray, elevated left hemidiaphragm. PHYSICAL EXAMINATION: Temperature 97.9, pulse 76, respiration 18, blood pressure 123/87, pulse ox 98% on room air. LUNGS: Fair entry. CARDIOVASCULAR: First and second sounds normal. DISCHARGE MEDICATIONS: 1. Lipitor 10 mg at bedtime. 2. Lasix 20 mg p.o. daily p.r.n. 3. Lyrica 75 mg p.o. b.i.d. 4. Norvasc 2.5 mg p.o. daily. 5. Catapres 0.1 mg p.o. b.i.d. 6. Glucotrol 2.5 mg before breakfast. 7. Eliquis 5 mg p.o. b.i.d. 8. Glucophage 500 mg p.o. b.i.d. 9. Albuterol 2.5 t.i.d. 10.Prednisone taper. Follow up with Dr. Tsang in 3 days. Follow up with Dr. Lucero in one week. MMZAINAL / IJN: [id number] /
== END 2019-10-09 15:14 | disposition home or self-care (01) ==
LOC: EC 19:14 → 3NMEDONC 22:00 → 4MS4W 10-08 02:30 → 1SOBS 10-08 09:16
PROVIDERS: ADMIT Hospitalist; ATTEND Hospitalist
DX: J20.9 Acute bronchitis, unspecified (principal); E11.9 Type 2 diabetes mellitus without complications; E66.01 Morbid (severe) obesity due to excess calories; E78.5 Hyperlipidemia, unspecified; G47.33 Obstructive sleep apnea (adult) (pediatric); I27.20 Pulmonary hypertension, unspecified; I27.82 Chronic pulmonary embolism; I82.501 Chronic embolism and thrombosis of unspecified deep veins of right lower extremity; M41.9 Scoliosis, unspecified; R09.02 Hypoxemia; Z68.42 Body mass index [BMI] 45.0-49.9, adult; Z79.01 Long term (current) use of anticoagulants; Z79.84 Long term (current) use of oral hypoglycemic drugs; Z79.899 Other long term (current) drug therapy; Z85.528 Personal history of other malignant neoplasm of kidney; Z87.01 Personal history of pneumonia (recurrent); Z90.5 Acquired absence of kidney; Z88.1 Allergy status to other antibiotic agents; Q79.1 Other congenital malformations of diaphragm
CPT/HCPCS: 96361; 96374; 96376 ×2; 99285; 36415; 94640 ×5; 93005; 97162; 83880; 80053; 83735; 84484; 85025; 85610; 85730; 83036; 71046; G0378 ×5; J2920 ×2

== ENCOUNTER 2020-01-06 14:21 | Inpatient (IN) | payer BC, MEDICARE ==
[2020-01-06] MEDS ORDERED: SODIUM CHLORIDE 0.9% 500 ML 500 ML IV ONE (14:27)
[2020-01-06] MEDS ORDERED: IPRATROPIUM-ALBUTEROL 3 ML NEB INHALATION STA (14:27)
--- NOTE | 2020-01-06 14:30 | ED ---
General Adult HPI - General Stated complaint: Altered Mental Status Time Seen by Provider: 01/06/20 14:21 Source: EMS, RN notes reviewed, old records reviewed - History of Present Illness Initial comments: This is a 75-year-old female who is a very poor historian EMS gives most of the history. EMS was called because of altered mental status when they arrived the patient's blood sugar 54 they gave the patient some glucose and the patient became much more alert and talkative however still answering questions and accurately. Patient currently cannot give us any history she denies being in any pain but she does not know what year it is month it is or where she is currently. EMS stated that she was recently at [facility] and discharged couple days ago but they are not sure for what reason. Patient is unable to give us any of that history no family is with the patient. If there is further information from family members or caregivers I will document that. - Related Data Home Medications Medication Instructions Recorded Confirmed Atorvastatin Calcium [Lipitor] 10 mg PO HS 08/13/19 10/07/19 Furosemide [Lasix] 20 mg PO DAILY PRN 08/13/19 10/07/19 Pregabalin [Lyrica] 75 mg PO BID 08/13/19 10/07/19 amLODIPine BESYLATE [Norvasc] 2.5 mg PO DAILY 08/13/19 10/07/19 cloNIDine HCL [Catapres] 0.1 mg PO BID 08/13/19 10/07/19 glipiZIDE [Glucotrol] 2.5 mg PO [id number] 10/07/19 10/07/19 Apixaban [Eliquis] 5 mg PO BID 10/08/19 10/08/19 metFORMIN HCL [Glucophage] 500 mg PO BID 10/08/19 10/08/19 Previous Rx's Medication Instructions Recorded Albuterol Nebulized [Ventolin 2.5 mg INHALATION TID #60 nebu 10/09/19 Nebulized] predniSONE 0 mg PO DIRECTED #10 tab 10/09/19 Allergies Allergy/AdvReac Type Severity Reaction Status Date / Time rofecoxib [From Vioxx] AdvReac Confusion Verified 10/07/19 22:35 Review of Systems ROS Statement: Those systems with pertinent positive or pertinent negative responses have been documented in the HPI. ROS Other: All systems not noted in ROS Statement are negative. Past Medical History Past Medical History: Cancer, Diabetes Mellitus, Hyperlipidemia, Pulmonary Embolus (PE) Additional Past Medical History / Comment(s): Kidney cancer post-nephrectomy on the right, recent diagnosis of DVT of the right lower extremity, pulmonary embolism, chronic elevation of the left hemidiaphragm, obstructive sleep apnea currently not receiving any treatment, thoracolumbar kyphoscoliosis, diabetes mellitus History of Any Multi-Drug Resistant Organisms: None Reported Past Surgical History: Appendectomy, Hernia Repair Additional Past Surgical History / Comment(s): kidney removal r/t ca Past Psychological History: No Psychological Hx Reported Smoking Status: Never smoker Past Alcohol Use History: None Reported Past Drug Use History: None Reported - Past Family History Mother Family Medical History: Cancer Father Family Medical History: Unable to Obtain General Exam - General Exam Comments Initial Comments: GENERAL: Patient is well-developed and well-nourished. Patient is nontoxic and well- hydrated and is in no acute distress. ENT: Neck is soft and supple. No significant lymphadenopathy is noted. Oropharynx is clear. Moist mucous membranes. Neck has full range of motion without e liciting any pain. EYES: The sclera were anicteric and conjunctiva were pink and moist. Extraocular movements were intact and pupils were equal round and reactive to light. Eyelids were unremarkable. PULMONARY: Unlabored respirations. Good breath sounds bilaterally. No audible rales rhonchi or wheezing was noted. CARDIOVASCULAR: There is a regular rate and rhythm without any murmurs gallops or rubs. ABDOMEN: Soft and nontender with normal bowel sounds. No palpable organomegaly was n oted. There is no palpable pulsatile mass. SKIN: Skin is clear with no lesions or rashes and otherwise unremarkable. NEUROLOGIC: Patient is alert and oriented times one. Cranial nerves II through XII are grossly intact. Motor and sensory are also intact. Normal speech, volume and content. Symmetrical smile. MUSCULOSKELETAL: Normal extremities with adequate strength and full range of motion. LYMPHATICS: No significant lymphadenopathy is noted PSYCHIATRIC: Patient is too altered to assess Course Vital Signs 01/06/20 01/06/20 01/06/20 14:25 14:35 14:41 Temperature 98.6 F Pulse Rate 112 H 106 H 100 Respiratory 16 Rate Blood Pressure 175/87 O2 Sat by Pulse 98 Oximetry 01/06/20 01/06/20 15:22 16:09 Temperature Pulse Rate 105 H 101 H Respiratory 16 16 Rate Blood Pressure 179/90 143/67 O2 Sat by Pulse 97 98 Oximetry Medical Decision Making - Medical Decision Making EKG shows sinus tachycardia at 102 bpm MT interval 248 QRSs 106 QT interval 346 QTC is 450. Patient's EKG shows no ST segment elevation or depression. Chest x-ray shows no acute abnormality. Computed tomography scan shows no acute abnormality. Patient is still altered mentally no cause at this time is been found. Spoke with because she agreed to admit the patient admitted the patient wrote admitting orders. Patient's family would like the patient to go to a extended care facility. Patient will be admitted family is aware is no neurologist [facility]. - Lab Data Result diagrams: 01/06/20 14:38 01/06/20 14:38 Lab Results 01/06/20 01/06/20 01/06/20 Range/Units 14:28 14:34 14:38 WBC 10.6 (3.8-10.6) k/uL RBC 5.44 H (3.80-5.40) m/uL Hgb 14.3 (11.4-16.0) gm/dL Hct 47.6 H (34.0-46.0) % MCV 87.5 (80.0-100.0) fL MCH 26.3 (25.0-35.0) pg MCHC 30.0 L (31.0-37.0) g/dL RDW 14.0 (11.5-15.5) % Plt Count 287 (150-450) k/uL Neutrophils % 71 % Lymphocytes % 20 % Monocytes % 5 % Eosinophils % 2 % Basophils % 0 % Neutrophils # 7.5 (1.3-7.7) k/uL Lymphocytes # 2.1 (1.0-4.8) k/uL Monocytes # 0.6 (0-1.0) k/uL Eosinophils # 0.2 (0-0.7) k/uL Basophils # 0.0 (0-0.2) k/uL Hypochromasia Moderate PT (9.0-12.0) sec INR (<1.2) APTT (22.0-30.0) sec Sodium (137-145) mmol/L Potassium (3.5-5.1) mmol/L Chloride (98-107) mmol/L Carbon Dioxide (22-30) mmol/L Anion Gap mmol/L BUN (7-17) mg/dL Creatinine (0.52-1.04) mg/dL Est GFR (CKD-EPI)AfAm (>60 ml/min/1.73 sqM) Est GFR (CKD-EPI)NonAf (>60 ml/min/1.73 sqM) Glucose (74-99) mg/dL POC Glucose (mg/dL) 112 H (75-99) mg/dL POC Glu [facility] [employer] ID Krysten Rosa Calcium (8.4-10.2) mg/dL Total Bilirubin (0.2-1.3) mg/dL AST (14-36) U/L ALT (4-34) U/L Alkaline Phosphatase (38-126) U/L Troponin I (0.000-0.034) ng/mL Total Protein (6.3-8.2) g/dL Albumin (3.5-5.0) g/dL Urine Color Light Yellow Urine Appearance Clear (Clear) Urine pH 8.0 (5.0-8.0) Ur Specific [place] 1.011 (1.001-1.035) Urine Protein Negative (Negative) Urine Glucose (UA) Negative (Negative) Urine Ketones 2+ H (Negative) Urine Blood Negative (Negative) Urine Nitrite Negative (Negative) Urine Bilirubin Negative (Negative) Urine Urobilinogen <2.0 (<2.0) mg/dL Ur Leukocyte Esterase Negative (Negative) Urine Opiates Screen Not Detected (NotDetected) Ur Oxycodone Screen Not Detected (NotDetected) Urine Methadone Screen Not Detected (NotDetected) Ur Propoxyphene Screen Not Detected (NotDetected) Ur Barbiturates Screen Not Detected (NotDetected) U Tricyclic Antidepress Not Detected (NotDetected) Ur Phencyclidine Scrn Not Detected (NotDetected) Ur Amphetamines Screen Not Detected (NotDetected) U Methamphetamines Scrn Not Detected (NotDetected) U Benzodiazepines Scrn Not Detected (NotDetected) Urine Cocaine Screen Not Detected (NotDetected) U Marijuana (THC) Screen Not Detected (NotDetected) 01/06/20 01/06/20 01/06/20 Range/Units 14:38 14:38 14:38 WBC (3.8-10.6) k/uL RBC (3.80-5.40) m/uL Hgb (11.4-16.0) gm/dL Hct (34.0-46.0) % MCV (80.0-100.0) fL MCH (25.0-35.0) pg MCHC (31.0-37.0) g/dL RDW (11.5-15.5) % Plt Count (150-450) k/uL Neutrophils % % Lymphocytes % % Monocytes % % Eosinophils % % Basophils % % Neutrophils # (1.3-7.7) k/uL Lymphocytes # (1.0-4.8) k/uL Monocytes # (0-1.0) k/uL Eosinophils # (0-0.7) k/uL Basophils # (0-0.2) k/uL Hypochromasia PT 11.5 (9.0-12.0) sec INR 1.1 (<1.2) APTT 22.7 (22.0-30.0) sec Sodium 137 (137-145) mmol/L Potassium 4.5 (3.5-5.1) mmol/L Chloride 100 (98-107) mmol/L Carbon Dioxide 28 (22-30) mmol/L Anion Gap 9 mmol/L BUN 14 (7-17) mg/dL Creatinine 0.77 (0.52-1.04) mg/dL Est GFR (CKD-EPI)AfAm 87 (>60 ml/min/1.73 sqM) Est GFR (CKD-EPI)NonAf 75 (>60 ml/min/1.73 sqM) Glucose 91 (74-99) mg/dL POC Glucose (mg/dL) (75-99) mg/dL POC Glu [address] Painter ID Calcium 8.9 (8.4-10.2) mg/dL Total Bilirubin 1.2 (0.2-1.3) mg/dL AST 26 (14-36) U/L ALT 15 (4-34) U/L Alkaline Phosphatase 62 (38-126) U/L Troponin I 0.113 H* (0.000-0.034) ng/mL Total Protein 7.4 (6.3-8.2) g/dL Albumin 3.8 (3.5-5.0) g/dL Urine Color Urine Appearance (Clear) Urine pH (5.0-8.0) Ur Specific [place] (1.001-1.035) Urine Protein (Negative) Urine Glucose (UA) (Negative) Urine Ketones (Negative) Urine Blood (Negative) Urine Nitrite (Negative) Urine Bilirubin (Negative) Urine Urobilinogen (<2.0) mg/dL Ur Leukocyte Esterase (Negative) Urine Opiates Screen (NotDetected) Ur Oxycodone Screen (NotDetected) Urine Methadone Screen (NotDetected) Ur Propoxyphene Screen (NotDetected) Ur Barbiturates Screen (NotDetected) U Tricyclic Antidepress (NotDetected) Ur Phencyclidine Scrn (NotDetected) Ur Amphetamines Screen (NotDetected) U Methamphetamines Scrn (NotDetected) U Benzodiazepines Scrn (NotDetected) Urine Cocaine Screen (NotDetected) U Marijuana (THC) Screen (NotDetected) Disposition Clinical Impression: Altered mental status, Elevated troponin, Hypoglycemia Disposition: ADMITTED IP TO THIS [facility] Time of Disposition: 16:27
[2020-01-06 14:40] LABS: Glucose,Whole Blood 112 mg/dL (75-99)
[2020-01-06 14:58] LABS: Appearance,Urine Clear (Clear); Bilirubin,Urine Negative (Negative); Blood,Urine Negative (Negative); Color,Urine Light Yellow; Glucose,Urine (UA) Negative (Negative); Ketones,Urine 2+ (Negative); Leukocyte Esterase,Urine Negative (Negative); Nitrite,Urine Negative (Negative); Protein,Urine Negative (Negative); Specific Gravity,Urine 1.011 (1.001-1.035); Urobilinogen,Urine <2.0 mg/dL (<2.0)
[2020-01-06 15:09] LABS: Amphetamine Screen,Urine Not Detected (NotDetected); Benzodiazepines Screen,Urine Not Detected (NotDetected); Cocaine Screen,Urine Not Detected (NotDetected); Opiate Screen,Urine Not Detected (NotDetected); Phencyclidine Screen,Urine Not Detected (NotDetected); Tricyclic Antidepressant,Urine Not Detected (NotDetected); Urn Cannabinoid Scrn Not Detected (NotDetected)
[2020-01-06 15:10] LABS: Barbiturate Screen,Urine Not Detected (NotDetected); Methadone Screen, Urine Not Detected (NotDetected); Oxycodone Screen, Urine Not Detected (NotDetected)
[2020-01-06 15:25] LABS: Basophils % (A) 0 %; Eosinophils # (A) 0.2 k/uL (0-0.7); Eosinophils % (A) 2 %; HCT 47.6 % (34.0-46.0); HGB 14.3 gm/dL (11.4-16.0); Hypochromasia Moderate; Lymphocytes # (A) 2.1 k/uL (1.0-4.8); Lymphocytes % (A) 20 %; MCH 26.3 pg (25.0-35.0); MCV 87.5 fL (80.0-100.0); Mean Platelet Volume 7.1; Monocytes # (A) 0.6 k/uL (0-1.0); Monocytes % (A) 5 %; Neutrophils # (A) 7.5 k/uL (1.3-7.7); Neutrophils % (A) 71 %; Platelet Count 287 k/uL (150-450); RBC 5.44 m/uL (3.80-5.40); WBC 10.6 k/uL (3.8-10.6)
[2020-01-06 15:34] LABS: INR 1.1 (<1.2); Partial Thromboplastin Time 22.7 sec (22.0-30.0); Prothrombin Time 11.5 sec (9.0-12.0)
[2020-01-06 15:35] LABS: Albumin 3.8 g/dL (3.5-5.0); Calcium 8.9 mg/dL (8.4-10.2); Potassium 4.5 mmol/L (3.5-5.1); Total Bilirubin 1.2 mg/dL (0.2-1.3); Total Protein 7.4 g/dL (6.3-8.2)
--- NOTE | 2020-01-06 16:01 | XR ---
EXAMINATION TYPE: XR chest 2V DATE OF EXAM: 01/06/2020 COMPARISON: 10/07/2019 HISTORY: Wheezing, cough, and hypertension TECHNIQUE: Frontal and lateral views of the chest are obtained. FINDINGS: Right humeral arthroplasty is seen. Chronic left hemidiaphragm elevation. Postsurgical rosetta nges of the upper abdomen, lumbar spine, and right humerus are partially visualized. Advanced arthrop athy of the left shoulder. No sizable pleural effusion, pneumothorax or focal consolidation. Cardia m ediastinal silhouette is partially obscured but appears stable from the prior. IMPRESSION: No acute cardiopulmonary process.
[2020-01-06] MEDS ORDERED: SODIUM CHLORIDE 0.9% 1,000 ML IV ONE (16:27)
--- NOTE | 2020-01-06 16:36 | CT ---
EXAMINATION TYPE: CT brain wo con DATE OF EXAM: 01/06/2020 HISTORY: Altered mental status. CT DLP: 1150.4 mGycm. Automated Exposure Control for Dose Reduction was Utilized. TECHNIQUE: CT scan of the head is performed without contrast. COMPARISON: None. FINDINGS: There is no acute intracranial hemorrhage or midline shift identified. There is diffuse v entricular and sulcal prominence consistent with diffuse cerebral atrophy. There is low-attenuation in the periventricular white matter consistent with chronic small vessel ischemic change. Mild mucosa l thickening posterior aspect bilateral maxillary sinuses. Remainder paranasal sinuses are clear. G lobes are intact bilaterally. IMPRESSION: No acute intracranial hemorrhage or midline shift. There is mild to moderate diffuse ag e-related cerebral atrophy and fairly moderate chronic small vessel ischemic change noted.
[2020-01-06 18:26] LABS: Glucose,Whole Blood 118 mg/dL (75-99)
[2020-01-06] MEDS ORDERED: DOCUSATE 100 MG CAP PO PRN (19:54)
[2020-01-06] MEDS ORDERED: SENNOSIDES 8.6 MG TAB PO PRN (19:54)
[2020-01-06 20:11] LABS: Glucose,Whole Blood 148 mg/dL (75-99)
[2020-01-06] MEDS: ISOSORBIDE DINITRATE 10 MG TAB PO SCH (20:12)
[2020-01-06] MEDS: APIXABAN 5 MG TAB PO SCH (20:12)
--- NOTE | 2020-01-06 22:13 | P.HPIM ---
History of Present Illness H&P Date: 01/06/20 Chief Complaint: Confused History of presenting complaint: This is a 75-year-old patient of Dr. Tsang. Chronic stable medical conditions include hyperlipidemia, diabetes chronic pulmonary embolism for which patient is on eliquis, chronic elevation of the left hemidiaphragm, obstructive sleep apnea does not use any machine, thoraco-lumbers kyphoscoliosis, right nephrectomy due to kidney cancer. Patient was assessed discharged from [facility] 2 days ago. Patient had been evaluated there for inpatient rehab. Patient declined the same and wanted to go back to her own place. EMS was called out after patient is found to be confused laying in bed. Accu-Cheks found to be 58. Glucose was given. Patient slowly came around. No focal weakness. Appetite h as been okay otherwise no change in bowel or urine pattern. He does use a walker Review of systems: GEN.: Tired EYES: None HEENT: None NECK: None RESPIRATORY: Some shortness of breath with cough CARDIOVASCULAR: None GASTROINTESTINAL: None GENITOURINARY: None MUSCULOSKELETAL: Joint pains LYMPHATICS: None HEMATOLOGICAL: None PSYCHIATRY: None NEUROLOGICAL: No focal Past medical history to include: Hyperlipidemia, chronic pulmonary embolism for which patient is on eliquis, chronic elevation of left hemidiaphragm, obstructive sleep apnea does not use any machine, thoracic or lumbar kyphoscoliosis, right nephrectomy for cancer Social history: No history of smoking or alcohol. Lives at independent living at [facility] Physical examination: VITAL SIGNS: 98.6, 112, 16, 175/87, 98% on 3 L GENERAL: BMI 44, laying in bed awake tired. EYES: Pupils equal. Conjunctiva normal. HEENT: External appearance of nose and ears normal, oral cavity grossly normal. NECK: JVD not raised; masses not palpable. HEART: First and second heart sounds are normal; no edema. LUNGS: Respiratory rate normal; decreased breath sounds. ABDOMEN: Soft, nontender, liver spleen not palpable, no masses palpable. PSYCH: Alert and oriented x3; mood and affect normal. NEUROLOGICAL: Cranial nerves grossly intact; no facial asymmetry, power and sensation grossly intact. LYMPHATICS: No lymph nodes palpable in the axilla and neck INVESTIGATIONS, reviewed in the clinical context: White count 10.6 hemoglobin 14.3 platelets 27 potassium 4.5 creatinine 0.77 Troponin I 0.113 UA negative for nitrate and leukoesterase Urine drug screen negative EKG tracing personally reviewed by me-incomplete right bundle-branch block Chest x-ray film personally reviewed by me-a bit underpenetrated, questionable venous prominence Assessment: -Hypoglycemia leading to altered mental status/metabolic encephalopathy -Diabetes mellitus type 2, uncontrolled from hypoglycemia -Morbid obesity BMI 44 -Hyperlipidemia -Chronic pulmonary embolism for which patient is on eliquis time-chronic elevation of the left hemidiaphragm -Obstructive sleep apnea does not use any machine -Thoracic [place] kyphoscoliosis -Right nephrectomy due to kidney cancer Plan: Bladder proBNP. Home medications were resumed. We'll cut back her dose of Levemir. Follow Accu-Cheks. PTOT involved. Care was discussed with the patient. Give 1 dose of IV Lasix. Past Medical History Past Medical History: Cancer, Diabetes Mellitus, Hyperlipidemia, Pulmonary Embolus (PE) Additional Past Medical History / Comment(s): Kidney cancer post-nephrectomy on the right, recent diagnosis of DVT of the right lower extremity, pulmonary embolism, chronic elevation of the left hemidiaphragm, obstructive sleep apnea currently not receiving any treatment, thoracolumbar kyphoscoliosis, diabetes mellitus History of Any Multi-Drug Resistant Organisms: None Reported Past Surgical History: Appendectomy, Hernia Repair Additional Past Surgical History / Comment(s): kidney removal r/t ca; back sx; 47 years ago Past Psychological History: No Psychological Hx Reported Smoking Status: Never smoker Past Alcohol Use History: None Reported Past Drug Use History: None Reported - Past Family History Mother Family Medical History: Cancer Father Family Medical History: Unable to Obtain Medications and Allergies Home Medications Medication Instructions Recorded Confirmed Type Apixaban [Eliquis] 5 mg PO BID 10/08/19 01/06/20 History Albuterol Inhaler [Ventolin Hfa 2 puff INHALATION RT-Q6H PRN 01/06/20 01/06/20 History Inhaler] Docusate [Colace] 200 mg PO DAILY PRN 01/06/20 01/06/20 History Insulin Detemir (Levemir) [Levemir] 20 unit SQ DAILY 01/06/20 01/06/20 History Isosorbide Dinitrate [Isordil] 10 mg PO TID 01/06/20 01/06/20 History Sennosides [Ex-Lax] 15 mg PO DAILY PRN 01/06/20 01/06/20 History amLODIPine [Norvasc] 5 mg PO DAILY 01/06/20 01/06/20 History hydrALAZINE HCL 25 mg PO Q8H 01/06/20 01/06/20 History predniSONE See Taper PO DAILY 01/06/20 01/06/20 History Allergies Allergy/AdvReac Type Severity Reaction Status Date / Time rofecoxib [From Vioxx] AdvReac Confusion Verified 01/06/20 16:42 Physical Exam Vitals: Vital Signs Temp Pulse Pulse Resp BP BP Pulse Ox 01/06/20 20:12 99 F 105 H 20 150/67 86 L 01/06/20 19:01 105 H 20 01/06/20 18:44 98.3 F 105 H 20 134/66 96 01/06/20 17:10 98 16 120/80 100 01/06/20 16:09 101 H 16 143/67 98 01/06/20 15:22 105 H 16 179/90 97 01/06/20 14:41 100 01/06/20 14:35 106 H 01/06/20 14:25 98.6 F 112 H 16 175/87 98 Intake and Output 01/06/20 01/06/20 01/06/20 06:59 14:59 22:59 Intake Total 75 Balance 75 Intake: Intake, IV Titration 75 Amount Sodium Chloride 0.9% 1, 75 000 ml @ 75 mls/hr IV . [id number] ONE Rx#:[id number] Other: Voiding Method Incontinent # Voids 1 Weight 109 kg 109 kg Results CBC & Chem 7: 01/06/20 14:38 01/06/20 14:38 Labs: Abnormal Lab Results - Last 24 Hours (Table) 01/06/20 01/06/20 01/06/20 Range/Units 14:28 14:34 14:38 RBC 5.44 H (3.80-5.40) m/uL Hct 47.6 H (34.0-46.0) % MCHC 30.0 L (31.0-37.0) g/dL POC Glucose (mg/dL) 112 H (75-99) mg/dL Troponin I (0.000-0.034) ng/mL Urine Ketones 2+ H (Negative) 01/06/20 01/06/20 01/06/20 Range/Units 14:38 18:25 20:09 RBC (3.80-5.40) m/uL Hct (34.0-46.0) % MCHC (31.0-37.0) g/dL POC Glucose (mg/dL) 118 H 148 H (75-99) mg/dL Troponin I 0.113 H* (0.000-0.034) ng/mL Urine Ketones (Negative) Thrombosis Risk Factor Assmnt - Choose All That Apply Each Factor Represents 1 point: Obesity (BMI >25) Each Risk Factor Represents 3 Points: Age 75 years or older, Family history of DVT/PE Thrombosis Risk Factor Assessment Total Risk Factor Score: 7 Thrombosis Risk Factor Assessment Level: High Risk
[2020-01-06] MEDS ORDERED: FUROSEMIDE 10 MG/ML 4 ML VIAL IV STA (22:16)
[2020-01-06] MEDS ORDERED: ALBUTEROL NEBULIZED 2.5 MG/3 ML INHALATION PRN (22:17)
[2020-01-06] MEDS: INSULIN ASPART (NovoLOG) 100 UNIT/ML VIAL SQ SCH (22:22)
[2020-01-06] MEDS: hydrALAZINE HCL 25 MG TAB PO SCH (22:35)
[2020-01-07 02:57] LABS: Glucose,Whole Blood 125 mg/dL (75-99)
[2020-01-07 06:23] LABS: Glucose,Whole Blood 112 mg/dL (75-99)
[2020-01-07] MEDS: INSULIN ASPART (NovoLOG) 100 UNIT/ML VIAL SQ SCH ×4 (06:35→20:49)
[2020-01-07] MEDS: ALBUTEROL NEBULIZED 2.5 MG/3 ML INHALATION PRN ×3 (08:40→19:48)
[2020-01-07] MEDS: hydrALAZINE HCL 25 MG TAB PO SCH ×2 (09:04→16:38)
[2020-01-07] MEDS: amLODIPine 5 MG TAB PO SCH (09:04)
[2020-01-07] MEDS: APIXABAN 5 MG TAB PO SCH ×2 (09:04→20:50)
[2020-01-07] MEDS: metFORMIN 500 MG TAB PO SCH ×2 (09:05→16:38)
[2020-01-07] MEDS: ISOSORBIDE DINITRATE 10 MG TAB PO SCH ×3 (09:05→20:51)
--- NOTE | 2020-01-07 11:43 | P.CRDCN ---
History of Present Illness Consult date: 01/07/20 Chief complaint: Change in mental status History of present illness: This is a very pleasant 75-year-old female patient with a past medical history significant for diabetes, hypertension, dyslipidemia, and history of pulmonary embolism in the past currently the patient is maintaining oral anticoagulation, was brought to the hospital with a change in mental status. The patient just was discharged recently from [facility] into a rehab facility. The patient somewhat is a poor historian. She does have some memory issue as well. Apparently she was found to have some change in mental status and because of that she was brought to the hospital. On the way to the hospital, and impedance found the patient to be hypoglycemic with a glucose about 50. Subsequently the patient was given glucose with improvement in her shoulder. The patient did not have any symptoms of chest pain or chest discomfort, no shortness of breath, sweating, dizziness, heart racing, or syncope. We consulted to see the patient because her troponin was checked and came in to be slightly abnormal. The EKG showed sinus rhythm without any significant ST or T- wave abnormalities. The patient is not aware of any prior cardiac history or seeing any ribbon blocker in the past. The rest of her blood work came in to be unremarkable. The chest x-ray did not show any acute abnormalities. The computed tomography scan of the brain also came in to be unremarkable. In 2018, the patient underwent an echocardiogram which showed normal left ventricular systolic function without any significant valvular abnormalities. Past Medical History Past Medical History: Cancer, Diabetes Mellitus, Hyperlipidemia, Pulmonary Embolus (PE) Additional Past Medical History / Comment(s): Kidney cancer post-nephrectomy on the right, recent diagnosis of DVT of the right lower extremity, pulmonary embol ism, chronic elevation of the left hemidiaphragm, obstructive sleep apnea currently not receiving any treatment, thoracolumbar kyphoscoliosis, diabetes mellitus History of Any Multi-Drug Resistant Organisms: None Reported Past Surgical History: Appendectomy, Hernia Repair Additional Past Surgical History / Comment(s): kidney removal r/t ca; back sx; 47 years ago Past Psychological History: No Psychological Hx Reported Smoking Status: Never smoker Past Alcohol Use History: None Reported Past Drug Use History: None Reported - Past Family History Mother Family Medical History: Cancer Father Family Medical History: Unable to Obtain Medications and Allergies Home Medications Medication Instructions Recorded Confirmed Type Apixaban [Eliquis] 5 mg PO BID 10/08/19 01/06/20 History Albuterol Inhaler [Ventolin Hfa 2 puff INHALATION RT-Q6H PRN 01/06/20 01/06/20 History Inhaler] Docusate [Colace] 200 mg PO DAILY PRN 01/06/20 01/06/20 History Insulin Detemir (Levemir) [Levemir] 20 unit SQ DAILY 01/06/20 01/06/20 History Isosorbide Dinitrate [Isordil] 10 mg PO TID 01/06/20 01/06/20 History Sennosides [Ex-Lax] 15 mg PO DAILY PRN 01/06/20 01/06/20 History amLODIPine [Norvasc] 5 mg PO DAILY 01/06/20 01/06/20 History hydrALAZINE HCL 25 mg PO Q8H 01/06/20 01/06/20 History predniSONE See Taper PO DAILY 01/06/20 01/06/20 History Allergies Allergy/AdvReac Type Severity Reaction Status Date / Time rofecoxib [From Vioxx] AdvReac Confusion Verified 01/06/20 16:42 Physical Exam Vitals: Vital Signs Temp Pulse Pulse Resp BP BP Pulse Ox 01/07/20 08:50 96 01/07/20 08:41 88 01/07/20 08:00 98.2 F 81 20 145/68 100 01/07/20 03:15 98.6 F 79 18 140/65 98 01/06/20 23:22 98.7 F 101 H 18 133/60 97 01/06/20 20:12 99 F 105 H 20 150/67 86 L 01/06/20 19:01 105 H 20 01/06/20 18:44 98.3 F 105 H 20 134/66 96 01/06/20 17:10 98 16 120/80 100 01/06/20 16:09 101 H 16 143/67 98 01/06/20 15:22 105 H 16 179/90 97 01/06/20 14:41 100 01/06/20 14:35 106 H 01/06/20 14:25 98.6 F 112 H 16 175/87 98 Intake and Output 02/24/20 02/25/20 02/25/20 22:59 06:59 14:59 Intake Total 75 Output Total 1450 Balance 75 -1450 Intake: Intake, IV Titration 75 Amount Sodium Chloride 0.9% 1, 75 000 ml @ 75 mls/hr IV . [id number] ONE Rx#:[id number] Output: Urine 1450 Other: Voiding Method Incontinent Bedpan Incontinent Incontinent # Voids 1 1 Weight 109 kg 109.5 kg - Constitutional General appearance: no acute distress - Respiratory Respiratory: bilateral: CTA - Cardiovascular Rhythm: regular Heart sounds: normal: S1, S2 Results 01/06/20 14:38 01/06/20 14:38 Cardiac Enzymes 01/06/20 01/06/20 01/06/20 Range/Units 14:38 14:38 21:31 AST 26 (14-36) U/L Troponin I 0.113 H* 0.111 H* (0.000-0.034) ng/mL Coagulation 01/06/20 Range/Units 14:38 PT 11.5 (9.0-12.0) sec APTT 22.7 (22.0-30.0) sec CBC 01/06/20 Range/Units 14:38 WBC 10.6 (3.8-10.6) k/uL RBC 5.44 H (3.80-5.40) m/uL Hgb 14.3 (11.4-16.0) gm/dL Hct 47.6 H (34.0-46.0) % Plt Count 287 (150-450) k/uL Comprehensive Metabolic Panel 01/06/20 Range/Units 14:38 Sodium 137 (137-145) mmol/L Potassium 4.5 (3.5-5.1) mmol/L Chloride 100 (98-107) mmol/L Carbon Dioxide 28 (22-30) mmol/L BUN 14 (7-17) mg/dL Creatinine 0.77 (0.52-1.04) mg/dL Glucose 91 (74-99) mg/dL Calcium 8.9 (8.4-10.2) mg/dL AST 26 (14-36) U/L ALT 15 (4-34) U/L Alkaline Phosphatase 62 (38-126) U/L Total Protein 7.4 (6.3-8.2) g/dL Albumin 3.8 (3.5-5.0) g/dL Current Medications Generic Name Dose Route Start Last Admin Trade Name Freq PRN Reason Stop Dose Admin Albuterol Sulfate 2.5 mg 01/06/20 19:54 01/07/20 11:38 Ventolin Nebulized INHALATION 2.5 mg RT-Q6H PRN Administration Wheezing Albuterol Sulfate 2.5 mg 01/06/20 22:17 Ventolin Nebulized INHALATION RT-QID PRN Shortness Of Breath Or Wheezing Amlodipine Besylate 5 mg 01/07/20 09:00 01/07/20 09:04 Norvasc PO 5 mg DAILY LINA Administration Apixaban 5 mg 01/06/20 21:00 01/07/20 09:04 Eliquis PO 5 mg BID [facility] Administration Aspirin 81 mg 01/08/20 09:00 Aspirin PO DAILY [facility] Docusate Sodium 200 mg 01/06/20 19:54 Colace PO DAILY PRN Constipation Hydralazine HCl 25 mg 01/07/20 00:00 01/07/20 09:04 Apresoline PO 25 mg Q8HR [facility] Administration Insulin Aspart 0 unit 01/06/20 22:15 01/07/20 06:35 Novolog SQ Not Given ACHS [facility] Protocol Isosorbide Dinitrate 10 mg 01/06/20 22:00 01/07/20 09:05 Isordil PO 10 mg TID [facility] Administration Metformin HCl 500 mg 01/07/20 07:30 01/07/20 09:05 Glucophage PO Not Given AC-BID [facility] Metoprolol Tartrate 12.5 mg 01/07/20 21:00 Lopressor PO BID [facility] Senna 8.6 mg 01/06/20 19:54 Senokot PO DAILY PRN Constipation Intake and Output 01/06/20 01/07/20 01/07/20 22:59 06:59 14:59 Intake Total 75 Output Total 1450 Balance 75 -1450 Intake: Intake, IV Titration 75 Amount Sodium Chloride 0.9% 1, 75 000 ml @ 75 mls/hr IV . [id number] ONE Rx#:[id number] Output: Urine 1450 Other: Voiding Method Incontinent Bedpan Incontinent Incontinent # Voids 1 1 Weight 109 kg 109.5 kg 01/06/20 14:38 01/06/20 14:38 Assessment and Plan Assessment: Assessment #1 change in mental status secondary to hypoglycemia #2 hypoglycemia #3 known diabetes type 2 #4 mildly abnormal troponin #5 multiple comorbid conditions Plan #1 consider medical treatment for the mildly abnormal troponin in the absence of chest pain and ischemic ST changes #2 add aspirin to the current medical regimen #3 at small dose of metoprolol to the current medical regimen #4 obtain an echocardiogram was Doppler #5 follow-up with the patient. Thank you for allowing us participate in her care
[2020-01-07 11:45] LABS: Glucose,Whole Blood 186 mg/dL (75-99)
[2020-01-07 12:16] LABS: Appearance,Urine Clear (Clear); Bilirubin,Urine Negative (Negative); Blood,Urine Negative (Negative); Color,Urine Light Yellow; Glucose,Urine (UA) Negative (Negative); Ketones,Urine 1+ (Negative); Leukocyte Esterase,Urine Negative (Negative); Nitrite,Urine Negative (Negative); Protein,Urine Negative (Negative); Urobilinogen,Urine <2.0 mg/dL (<2.0)
--- NOTE | 2020-01-07 15:40 | ECHOF ---
Referral Reason:NSTEMI MEASUREMENTS -------- HEIGHT: 157.5 cm WEIGHT: 109.3 kg BP: 145/68 IVSd: 1.5 cm (0.6 - 1.1) LVIDd: 3.5 cm (3.9 - 5.3) LVPWd: 1.2 cm (0.6 - 1.1) IVSs: 1.7 cm LVIDs: 2.2 cm LVPWs: 1.6 cm LAESV Index (A-L): 32.02 ml/m MV E Zac: 0.88 m/s MV DecT: 337 ms MV A Zac: 1.69 m/s MV E/A Ratio: 0.52 RAP: 5.00 mmHg RVSP: 57.30 mmHg FINDINGS -------- Sinus rhythm. This was a technically difficult study with suboptimal views. Morbid Obesity Pt. not compliant. The left ventricular size is normal. There is moderate concentric left ventricular hypertrophy. O verall left ventricular systolic function is normal with, an EF between 60 - 65 %. Mitral Doppler i nflow pattern suggests diastolic filling abnormality {E/E'}. The RV was not well visualized. LA is midly dilated 29-33ml/m2. The right atrium was not well visualized. 5.0mg of Lumason was utilized for enhancement of images Interatrial and interventricular septum intact. The aortic valve was not well visualized. There is no evidence of aortic regurgitation. There is no evidence of aortic stenosis. The mitral valve was not well visualized. Moderate mitral annular calcification present. Moderate mitral regurgitation is present. Moderate tricuspid regurgitation present. There is moderate to severe pulmonary hypertension. The right ventricular systolic pressure, as measured by Doppler, is 57.30mmHg. The pulmonic valve was not well visualized. The aortic root size is normal. IVC Not well visulized. There is no pericardial effusion. CONCLUSIONS -------- 1. Sinus rhythm. 2. This was a technically difficult study with suboptimal views. 3. Morbid Obesity 4. Pt. not compliant. 5. The left ventricular size is normal. 6. There is moderate concentric left ventricular hypertrophy. 7. Overall left ventricular systolic function is normal with, an EF between 60 - 65 %. 8. Mitral Doppler inflow pattern suggest diastolic filling abnormality {E/E'}. 9. The RV was not well visualized. 10. LA is midly dilated 29-33ml/m2. 11. The right atrium was not well visualized. 12. 5.0mg of Lumason was utilized for enhancement of images 13. Interatrial and interventricular septum intact. 14. The aortic valve was not well visualized. 15. There is no evidence of aortic regurgitation. 16. There is no evidence of aortic stenosis. 17. The mitral valve was not well visualized. 18. Moderate mitral annular calcification present. 19. Moderate mitral regurgitation is present. 20. Moderate tricuspid regurgitation present. 21. There is moderate to severe pulmonary hypertension. 22. The right ventricular systolic pressure, as measured by Doppler, is 57.30mmHg. 23. The pulmonic valve was not well visualized. 24. The aortic root size is normal. 25. IVC Not well visulized. 26. There is no pericardial effusion. E [employer]OPER: Marilyn Malagon RDCS
[2020-01-07 16:44] LABS: Glucose,Whole Blood 255 mg/dL (75-99)
--- NOTE | 2020-01-07 20:24 | P.PN ---
Progress Note - Text Progress Note Date: 01/07/20 Chief Complaint: Confused History of presenting complaint: This is a 75-year-old patient of Dr. Tsang. Chronic stable medical conditions include hyperlipidemia, diabetes chronic pulmonary embolism for which patient is on eliquis, chronic elevation of the left hemidiaphragm, obstructive sleep apnea does not use any machine, thoraco-lumbers kyphoscoliosis, right nephrectomy due to kidney cancer. Patient was assessed discharged from [facility] 2 days ago. Patient had been evaluated there for inpatient rehab. Patient declined the same and wanted to go back to her own place. EMS was called out after patient is found to be confused laying in bed. Accu-Cheks found to be 58. Glucose was given. Patient slowly came around. No focal weakness. Appetite has been okay otherwise no change in bowel or urine pattern. He does use a walker Admitted with-hypoglycemia, causing metabolic encephalopathy. Today-laying in bed. Awake. Some short of breath and some wheezing. Grandson visiting. Review of systems: Was done for constitutional, cardiovascular, GI, pulmonary. relevant finding as above Active Medications Albuterol Sulfate (Ventolin Nebulized) 2.5 mg INHALATION RT-Q6H PRN PRN Reason: Wheezing Last Admin: 01/07/20 19:48 Dose: 2.5 mg Documented by: Albuterol Sulfate (Ventolin Nebulized) 2.5 mg INHALATION RT-QID PRN PRN Reason: Shortness Of Breath Or Wheezing Last Admin: 01/07/20 16:04 Dose: 2.5 mg Documented by: Amlodipine Besylate (Norvasc) 5 mg PO DAILY [facility] Last Admin: 01/07/20 09:04 Dose: 5 mg Documented by: Apixaban (Eliquis) 5 mg PO BID [facility] Last Admin: 01/07/20 09:04 Dose: 5 mg Documented by: Aspirin (Aspirin) 81 mg PO DAILY [facility] Docusate Sodium (Colace) 200 mg PO DAILY PRN PRN Reason: Constipation Furosemide (Lasix) 40 mg IV Q12HR [facility] Stop: 01/08/20 09:01 Hydralazine HCl (Apresoline) 25 mg PO Q8HR [facility] Last Admin: 01/07/20 16:38 Dose: 25 mg Documented by: Insulin Aspart (Novolog) 0 unit SQ [facility]; Protocol Last Admin: 01/07/20 17:33 Dose: 6 unit Documented by: Isosorbide Dinitrate (Isordil) 10 mg PO TID [facility] Last Admin: 01/07/20 16:38 Dose: 10 mg Documented by: Metformin HCl (Glucophage) 500 mg PO AC-BID [facility] Last Admin: 01/07/20 16:38 Dose: 500 mg Documented by: Metoprolol Tartrate (Lopressor) 12.5 mg PO BID [facility] Senna (Senokot) 8.6 mg PO DAILY PRN PRN Reason: Constipation Physical examination: VITAL SIGNS: 98.1, 104, 20, 123/58, 94% on 2 L GENERAL: BMI 44, propped up in bed, slightly short of breath EYES: Pupils equal. Conjunctiva normal. HEENT: External appearance of nose and ears normal, oral cavity grossly normal. NECK: JVD not raised; masses not palpable. HEART: First and second heart sounds are normal; no edema. LUNGS: Respiratory rate increased; decreased breath sounds. Wheezing ABDOMEN: Soft, nontender, liver spleen not palpable, no masses palpable. PSYCH: Alert and oriented x3; mood and affect normal. NEUROLOGICAL: Cranial nerves grossly intact; no facial asymmetry, power and sensation grossly intact. LYMPHATICS: No lymph nodes palpable in the axilla and neck INVESTIGATIONS, reviewed in the clinical context: White count 10.6 hemoglobin 14.3 platelets 27 potassium 4.5 creatinine 0.77 Troponin I 0.113 UA negative for nitrate and leukoesterase Urine drug screen negative EKG tracing personally reviewed by me-incomplete right bundle-branch block Chest x-ray film personally reviewed by me-a bit underpenetrated, questionable venous prominence 2-D echo-August 2019-EF 50-45%, moderate pulmonary hypertension Assessment: -Acute congestive heart exacerbation from diastolic dysfunction EF 50-55%, new diagnosis -Secondary pulmonary hypertension -Hypoglycemia leading to altered mental status/metabolic encephalopathy-improved -Diabetes mellitus type 2, uncontrolled from hypoglycemia -Morbid obesity BMI 44 -Hyperlipidemia -Chronic pulmonary embolism for which patient is on eliquis -chronic elevation of the left hemidiaphragm -Obstructive sleep apnea does not use any machine -Thoracic [place] kyphoscoliosis -Right nephrectomy due to kidney cancer -Medical debility -Troponin leak possibly from CHF Plan: Per the patient on IV Lasix 40 mg every 12 for 2 doses. PTOT to see the patient. Looking at possible inpatient rehab. Care was discussed with the patient and correctional counselor/case manager at length. Follow electrolytes.
[2020-01-07 20:28] LABS: Glucose,Whole Blood 275 mg/dL (75-99)
[2020-01-07] MEDS: METOPROLOL TARTRATE 12.5 MG TAB PO SCH (20:50)
[2020-01-07] MEDS ORDERED: FUROSEMIDE 10 MG/ML 4 ML VIAL IV SCH (21:00)
[2020-01-07] MEDS ORDERED: FUROSEMIDE 40 MG TAB PO STA (22:22)
[2020-01-08] MEDS: hydrALAZINE HCL 25 MG TAB PO SCH ×2 (00:44→09:17)
[2020-01-08 04:12] VITALS: RESP 20
[2020-01-08 06:14] LABS: Glucose,Whole Blood 170 mg/dL (75-99)
[2020-01-08] MEDS: metFORMIN 500 MG TAB PO SCH (06:37)
[2020-01-08] MEDS: INSULIN ASPART (NovoLOG) 100 UNIT/ML VIAL SQ SCH ×2 (06:37→12:20)
[2020-01-08] MEDS ORDERED: ASPIRIN 81 MG PO SCH (09:00)
[2020-01-08] MEDS ORDERED: FUROSEMIDE 80 MG TAB PO ONE (09:00)
[2020-01-08] MEDS: METOPROLOL TARTRATE 12.5 MG TAB PO SCH (09:16)
[2020-01-08] MEDS: amLODIPine 5 MG TAB PO SCH (09:17)
[2020-01-08] MEDS: ISOSORBIDE DINITRATE 10 MG TAB PO SCH (09:17)
[2020-01-08] MEDS: APIXABAN 5 MG TAB PO SCH (09:17)
[2020-01-08 11:45] LABS: Glucose,Whole Blood 261 mg/dL (75-99)
[2020-01-08 12:18] VITALS: BP 106/62; PULSE 87; TEMP 97.9
[2020-01-08 13:02] LABS: Calcium 8.7 mg/dL (8.4-10.2); Potassium 4.6 mmol/L (3.5-5.1)
--- NOTE | 2020-01-08 13:41 | P.DS ---
Providers Date of admission: 01/06/20 16:27 Expected date of discharge: 01/08/20 Attending physician: Jair Rizzo Consults: 01/06/20 16:27 Consult Physician Urgent Consulting Provider: [facility] Consult Reason/Comments: Elevated troponin Do you want consulting provider notified?: Yes Primary care physician: [facility] Course: Chief Complaint: Confused History of presenting complaint: This is a 75-year-old patient of Dr. Tsang. Chronic stable medical conditions include hyperlipidemia, diabetes chronic pulmonary embolism for which patient is on eliquis, chronic elevation of the left hemidiaphragm, obstructive sleep apnea does not use any machine, thoraco-lumbers kyphoscoliosis, right nephrectomy due to kidney cancer. Patient was assessed discharged from [facility] 2 days ago. Patient had been evaluated there for inpatient rehab. Patient declined the same and wanted to go back to her own place. EMS was called out after patient is found to be confused laying in bed. Accu-Cheks found to be 58. Glucose was given. Patient slowly came around. No focal weakness. Appetite has been okay otherwise no change in bowel or urine pattern. He does use a walker Admitted with-hypoglycemia, causing metabolic encephalopathy. Responded well. Sugars have-come up. Also had some asthma exacerbation. Patient doesn't have CHF. Creatinine has gone up with diuresis. Lasix stopped. Renal function to be checked as as outpatient Today-sitting up in a chair. Feeling well.. Tolerating a diet. Discussed with patient Discussion and discharge planning more than 35 minutes Consultation: Dr. Ruggiero from cardiology Physical examination: VITAL SIGNS: 97.9, 87, 20, 106/62, 93% on room air GENERAL: Sitting up in a chair, comfortable EYES: Pupils equal. Conjunctiva normal. HEENT: External appearance of nose and ears normal, oral cavity grossly normal. NECK: JVD not raised; masses not palpable. HEART: First and second heart sounds are normal; no edema. LUNGS: Respiratory rate increased; improved air entry ABDOMEN: Soft, nontender, liver spleen not palpable, no masses palpable. PSYCH: Alert and oriented x3; mood and affect normal. INVESTIGATIONS, reviewed in the clinical context: Potassium 4.6 bun 25 creatinine 1.24 Previous testing White count 10.6 hemoglobin 14.3 platelets 27 potassium 4.5 creatinine 0.77 Troponin I 0.113 UA negative for nitrate and leukoesterase Urine drug screen negative EKG tracing personally reviewed by me-incomplete right bundle-branch block Chest x-ray film personally reviewed by me-a bit underpenetrated, questionable venous prominence 2-D echo-August 2019-EF 50-45%, moderate pulmonary hypertension Assessment: -Acute asthma exacerbation -Acute kidney injury prerenal from diuresis -Secondary pulmonary hypertension -Hypoglycemia leading to altered mental status/metabolic encephalopathy-improved -Diabetes mellitus type 2, uncontrolled from hypoglycemia -Morbid obesity BMI 44 -Hyperlipidemia -Chronic pulmonary embolism for which patient is on eliquis -chronic elevation of the left hemidiaphragm -Obstructive sleep apnea does not use any machine -Thoracic [place] kyphoscoliosis -Right nephrectomy due to kidney cancer -Medical debility -Troponin leak possibly from CHF Disposition: ECF/[facility] Labs: BMP/CBC-3 days Patient Condition at Discharge: Stable Plan - Discharge Summary New Discharge Prescriptions: New Aspirin 81 mg PO DAILY chew metFORMIN HCL [Glucophage] 500 mg PO AC-BID tab Metoprolol Tartrate [Lopressor] 12.5 mg PO BID tab Albuterol Nebulized [Ventolin Nebulized] 2.5 mg INHALATION TID ml Continue Apixaban [Eliquis] 5 mg PO BID Sennosides [Ex-Lax] 15 mg PO DAILY PRN PRN Reason: Constipation Albuterol Inhaler [Ventolin Hfa Inhaler] 2 puff INHALATION RT-Q6H PRN PRN Reason: Wheezing Isosorbide Dinitrate [Isordil] 10 mg PO TID hydrALAZINE HCL 25 mg PO Q8H amLODIPine [Norvasc] 5 mg PO DAILY Changed Insulin Detemir (Levemir) [Levemir] 16 unit SQ DAILY #0 Discontinued Docusate [Colace] 200 mg PO DAILY PRN PRN Reason: Constipation predniSONE See Taper PO DAILY Discharge Medication List Apixaban [Eliquis] 5 mg PO BID 10/08/19 [History] Albuterol Inhaler [Ventolin Hfa Inhaler] 2 puff INHALATION RT-Q6H PRN 01/06/20 [History] Isosorbide Dinitrate [Isordil] 10 mg PO TID 01/06/20 [History] Sennosides [Ex-Lax] 15 mg PO DAILY PRN 01/06/20 [History] amLODIPine [Norvasc] 5 mg PO DAILY 01/06/20 [History] hydrALAZINE HCL 25 mg PO Q8H 01/06/20 [History] Albuterol Nebulized [Ventolin Nebulized] 2.5 mg INHALATION TID ml 01/08/20 [Rx] Aspirin 81 mg PO DAILY chew 01/08/20 [Rx] Insulin Detemir (Levemir) [Levemir] 16 unit SQ DAILY #0 01/08/20 [Rx] Metoprolol Tartrate [Lopressor] 12.5 mg PO BID tab 01/08/20 [Rx] metFORMIN HCL [Glucophage] 500 mg PO AC-BID tab 01/08/20 [Rx] Follow up Appointment(s)/Referral(s): Caleb Tsang MD [STAFF PHYSICIAN] - 1-2 Days Rupesh Redd MD [REFERRING] - As Needed
--- NOTE | 2020-01-08 15:02 | P.PN ---
Subjective Progress Note Date: 01/08/20 This is a very pleasant 75-year-old female patient with a past medical history significant for diabetes, hypertension, dyslipidemia, and history of pulmonary embolism in the past currently the patient is maintaining oral anticoagulation, was brought to the hospital with a change in mental status. She was seen in consultation yesterday by Dr. Neville because of abnormal troponins. She had an echocardiogram with Doppler study performed which revealed an ejection fraction of 60-65%. Moderate mitral regurgitation. Hemodynamically stable. Objective - Vital Signs Vital signs: Vital Signs Temp 97.9 F 01/08/20 12:00 Pulse 87 01/08/20 12:00 Resp 20 01/08/20 12:00 BP 106/62 01/08/20 12:00 Pulse Ox 93 L 01/08/20 12:00 Intake & Output 01/07/20 01/08/20 01/08/20 18:59 06:59 18:59 Intake Total 480 540 720 Output Total 1450 525 500 Balance -970 15 220 Weight 108.8 kg Intake: Oral 480 540 720 Output: Urine 1450 525 500 Other: Voiding Method Bedside Commode Bedside Commode Bedside Commode Incontinent Incontinent Incontinent - Exam PHYSICAL EXAMINATION: GENERAL: 75-year-old female in no acute distress at the time of my ex amination HEENT: Head is atraumatic, normocephalic. Pupils equal, round. Sclera anicteric. Conjunctiva are clear. Mucous membranes of the mouth are moist. Neck is supple. There is no elevated jugular venous pressure. No carotid bruit is heard. HEART EXAMINATION: Heart S1, S2 normal. No murmur or gallop heard. CHEST EXAMINATION: Lungs are clear to auscultation and precussion. No chest wall tenderness is noted on palpation or with deep breathing. ABDOMEN: Soft, nontender. Bowel sounds are heard. No organomegaly noted. EXTREMITIES: 2+ peripheral pulses with no evidence of peripheral edema and no calf tenderness noted. NEUROLOGIC patient is awake, alert and oriented times ?-3. . - Labs CBC & Chem 7: 01/06/20 14:38 01/08/20 12:21 Labs: Abnormal Lab Results - Last 24 Hours (Table) 01/07/20 01/07/20 01/08/20 Range/Units 16:42 20:25 06:13 Sodium (137-145) mmol/L Chloride (98-107) mmol/L Carbon Dioxide (22-30) mmol/L BUN (7-17) mg/dL Creatinine (0.52-1.04) mg/dL Glucose (74-99) mg/dL POC Glucose (mg/dL) 255 H 275 H 170 H (75-99) mg/dL 01/08/20 01/08/20 Range/Units 11:32 12:21 Sodium 135 L (137-145) mmol/L Chloride 95 L (98-107) mmol/L Carbon Dioxide 33 H (22-30) mmol/L BUN 25 H (7-17) mg/dL Creatinine 1.24 H (0.52-1.04) mg/dL Glucose 273 H (74-99) mg/dL POC Glucose (mg/dL) 261 H (75-99) mg/dL Assessment and Plan Plan: Assessment and plan #1 change in mental status secondary to hypoglycemia #2 hypoglycemia #3 known diabetes type 2 #4 mildly abnormal troponin #5 multiple comorbid conditions Plan Echocardiogram with Doppler study revealed a normal left ventricular systolic function. We will follow this patient along with you now on an as-needed basis only, please don't hesitate to call with any questions. DNP note has been reviewed, I agree with a documented findings and plan of care. Patient was seen and examined.
== END 2020-01-08 14:23 | DRG 637 ==
LOC: EC 14:21 → 3SCARD 16:27
PROVIDERS: ADMIT Hospitalist; ATTEND Hospitalist
DX: E11.649 Type 2 diabetes mellitus with hypoglycemia without coma (principal); G93.41 Metabolic encephalopathy; I27.82 Chronic pulmonary embolism; J45.901 Unspecified asthma with (acute) exacerbation; Z68.41 Body mass index [BMI] 40.0-44.9, adult; E66.01 Morbid (severe) obesity due to excess calories; E78.5 Hyperlipidemia, unspecified; G47.33 Obstructive sleep apnea (adult) (pediatric); I11.0 Hypertensive heart disease with heart failure; I50.9 Heart failure, unspecified; R79.89 Other specified abnormal findings of blood chemistry; I27.29 Other secondary pulmonary hypertension; I34.0 Nonrheumatic mitral (valve) insufficiency; M41.9 Scoliosis, unspecified; N17.9 Acute kidney failure, unspecified; T50.2X5A Adverse effect of carbonic-anhydrase inhibitors, benzothiadiazides and other diuretics, initial encounter; Z79.01 Long term (current) use of anticoagulants; Z79.4 Long term (current) use of insulin; Z79.899 Other long term (current) drug therapy; Z85.528 Personal history of other malignant neoplasm of kidney; Z86.718 Personal history of other venous thrombosis and embolism; Z88.8 Allergy status to other drugs, medicaments and biological substances; Z90.5 Acquired absence of kidney; Z90.49 Acquired absence of other specified parts of digestive tract; J98.6 Disorders of diaphragm; R53.81 Other malaise
CPT/HCPCS: 36415; 70450; 71046; 80048; 80053; 80306; 81003; 83880; 84484; 85025; 85610; 85730; 93005; 93306; 94640; 94667; 94760; 96360; 96361; 99285

== ENCOUNTER 2020-05-13 12:11 | Observation (INO) | payer MEDICARE ==
[2020-05-13] MEDS ORDERED: NITROGLYCERIN OINT 1 INCH/GM PACKET TOPICAL STA (13:09)
[2020-05-13] MEDS ORDERED: ASPIRIN 81 MG PO STA (13:09)
--- NOTE | 2020-05-13 13:12 | ED ---
General Adult HPI - General Chief complaint: Chest Pain Stated complaint: chest pain Time Seen by Provider: 05/13/20 12:40 Source: patient, RN notes reviewed, old records reviewed Mode of arrival: wheelchair Limitations: no limitations - History of Present Illness Initial comments: This is a 75-year-old female who has a past medical history significant for blood clots and she is on eliquis which she is out of for the last week and a half. Patient also has diabetes hypertension high cholesterol. Patient states she comes in because she's been having intermittent chest pain for the last month and it is on the left side and it does come and go but lately has been getting worse and worse. Patient states her last episode was yesterday and was quite severe she was almost in tears. Patient states she didn't come in because she did not have a ride. Patient denies any shortness of breath or difficulty breathing. Patient denies any chest pain currently. Patient denies any diaphoretic episodes. Patient any nausea vomiting. Patient denies any recent fever chills or cough. Patient denies lightheadedness or dizziness. Patient denies headache patient denies numbness weakness. Patient denies any increase in swelling of the legs. - Related Data Home Medications Medication Instructions Recorded Confirmed Apixaban [Eliquis] 5 mg PO BID 10/08/19 05/13/20 Albuterol Sulfate [Ventolin HFA] 2 puff INHALATION RT-QID PRN 05/13/20 05/13/20 Esomeprazole Magnesium [NexIUM 20 mg PO DAILY 05/13/20 05/13/20 24Hr] Insulin Detemir (Levemir) [Levemir] 20 - 22 unit SQ DAILY 05/13/20 05/13/20 Loratadine [Claritin] 10 mg PO DAILY 05/13/20 05/13/20 Pregabalin [Lyrica] 75 mg PO DAILY PRN 05/13/20 05/13/20 Previous Rx's Medication Instructions Recorded metFORMIN HCL [Glucophage] 500 mg PO AC-BID tab 01/08/20 Allergies Allergy/AdvReac Type Severity Reaction Status Date / Time rofecoxib [From Vioxx] AdvReac Confusion Verified 05/13/20 14:56 Review of Systems ROS Statement: Those systems with pertinent positive or pertinent negative responses have been documented in the HPI. ROS Other: All systems not noted in ROS Statement are negative. Past Medical History Past Medical History: Cancer, Diabetes Mellitus, Hyperlipidemia, Pulmonary Embolus (PE) Additional Past Medical History / Comment(s): Kidney cancer post-nephrectomy on the right, recent diagnosis of DVT of the right lower extremity, pulmonary embolism, chronic elevation of the left hemidiaphragm, obstructive sleep apnea currently not receiving any treatment, thoracolumbar kyphoscoliosis, diabetes mellitus History of Any Multi-Drug Resistant Organisms: None Reported Past Surgical History: Appendectomy, Hernia Repair Additional Past Surgical History / Comment(s): kidney removal r/t ca; back sx; 47 years ago Past Psychological History: No Psychological Hx Reported Smoking Status: Never smoker Past Alcohol Use History: None Reported Past Drug Use History: None Reported - Past Family History Mother Family Medical History: Cancer Father Family Medical History: Unable to Obtain General Exam - General Exam Comments Initial Comments: GENERAL: Patient is well-developed and well-nourished. Patient is nontoxic and well- hydrated and is in mild distress. ENT: Neck is soft and supple. No significant lymphadenopathy is noted. Oropharynx is clear. Moist mucous membranes. Neck has full range of motion without eliciting any pain. EYES: The sclera were anicteric and conjunctiva were pink and moist. Extraocular movements were intact and pupils were equal round and reactive to light. Eyelids were unremarkable. PULMONARY: Unlabored respirations. Good breath sounds bilaterally. No audible rales rhonchi or wheezing was noted. CARDIOVASCULAR: There is a regular rate and rhythm without any murmurs gallops or rubs. ABDOMEN: Soft and nontender with normal bowel sounds. SKIN: Skin is clear with no lesions or rashes and otherwise unremarkable. NEUROLOGIC: Patient is alert and oriented x3. Cranial nerves II through XII are grossly intact. Motor and sensory are also intact. Normal speech, volume and content. Symmetrical smile. MUSCULOSKELETAL: Normal extremities with adequate strength and full range of motion. LYMPHATICS: No significant lymphadenopathy is noted PSYCHIATRIC: Normal psychiatric evaluation. Limitations: no limitations Course Vital Signs 05/13/20 05/13/20 12:39 13:52 Temperature 98.7 F Pulse Rate 99 89 Respiratory 18 20 Rate Blood Pressure 140/63 147/87 O2 Sat by Pulse 92 L 100 Oximetry Medical Decision Making - Medical Decision Making EKG shows normal sinus rhythm at 94 bpm RI interval 288 QRSs 108 QT interval 334 QTC is 417. Patient's EKG shows no ST segment elevation or depression. Chest x-ray showed no acute abnormality. Patient was chest pain-free during the ER stay. I did start patient on heparin because she was on eliquis previously been altered for week and a half. Patient does not know why she is on eliquis. I spoke with Dr. LAYNE agreed to admit the patient admitted the patient I consult cardiology and continue the aspirin and Nitropaste on the floor. - Lab Data Result diagrams: 05/13/20 13:00 05/13/20 13:00 Lab Results 05/13/20 05/13/20 05/13/20 Range/Units 13:00 13:00 13:00 WBC 8.0 (3.8-10.6) k/uL RBC 4.41 (3.80-5.40) m/uL Hgb 11.8 (11.4-16.0) gm/dL Hct 39.0 (34.0-46.0) % MCV 88.4 (80.0-100.0) fL MCH 26.6 (25.0-35.0) pg MCHC 30.1 L (31.0-37.0) g/dL RDW 14.4 (11.5-15.5) % Plt Count 250 (150-450) k/uL Neutrophils % 57 % Lymphocytes % 31 % Monocytes % 6 % Eosinophils % 3 % Basophils % 1 % Neutrophils # 4.6 (1.3-7.7) k/uL Lymphocytes # 2.5 (1.0-4.8) k/uL Monocytes # 0.5 (0-1.0) k/uL Eosinophils # 0.2 (0-0.7) k/uL Basophils # 0.1 (0-0.2) k/uL Hypochromasia Moderate PT 10.0 (9.0-12.0) sec INR 1.0 (<1.2) APTT 23.0 (22.0-30.0) sec Sodium 136 L (137-145) mmol/L Potassium 4.7 (3.5-5.1) mmol/L Chloride 101 (98-107) mmol/L Carbon Dioxide 29 (22-30) mmol/L Anion Gap 6 mmol/L BUN 17 (7-17) mg/dL Creatinine 0.74 (0.52-1.04) mg/dL Est GFR (CKD-EPI)AfAm >90 (>60 ml/min/1.73 sqM) Est GFR (CKD-EPI)NonAf 80 (>60 ml/min/1.73 sqM) Glucose 191 H (74-99) mg/dL Calcium 9.3 (8.4-10.2) mg/dL Magnesium 1.7 (1.6-2.3) mg/dL Total Bilirubin 0.3 (0.2-1.3) mg/dL AST 18 (14-36) U/L ALT 8 (4-34) U/L Alkaline Phosphatase 79 (38-126) U/L Troponin I (0.000-0.034) ng/mL NT-Pro-B Natriuret Pep pg/mL Total Protein 7.1 (6.3-8.2) g/dL Albumin 3.8 (3.5-5.0) g/dL 05/13/20 05/13/20 Range/Units 13:00 13:00 WBC (3.8-10.6) k/uL RBC (3.80-5.40) m/uL Hgb (11.4-16.0) gm/dL Hct (34.0-46.0) % MCV (80.0-100.0) fL MCH (25.0-35.0) pg MCHC (31.0-37.0) g/dL RDW (11.5-15.5) % Plt Count (150-450) k/uL Neutrophils % % Lymphocytes % % Monocytes % % Eosinophils % % Basophils % % Neutrophils # (1.3-7.7) k/uL Lymphocytes # (1.0-4.8) k/uL Monocytes # (0-1.0) k/uL Eosinophils # (0-0.7) k/uL Basophils # (0-0.2) k/uL Hypochromasia PT (9.0-12.0) sec INR (<1.2) APTT (22.0-30.0) sec Sodium (137-145) mmol/L Potassium (3.5-5.1) mmol/L Chloride (98-107) mmol/L Carbon Dioxide (22-30) mmol/L Anion Gap mmol/L BUN (7-17) mg/dL Creatinine (0.52-1.04) mg/dL Est GFR (CKD-EPI)AfAm (>60 ml/min/1.73 sqM) Est GFR (CKD-EPI)NonAf (>60 ml/min/1.73 sqM) Glucose (74-99) mg/dL Calcium (8.4-10.2) mg/dL Magnesium (1.6-2.3) mg/dL Total Bilirubin (0.2-1.3) mg/dL AST (14-36) U/L ALT (4-34) U/L Alkaline Phosphatase (38-126) U/L Troponin I <0.012 (0.000-0.034) ng/mL NT-Pro-B Natriuret Pep 240 pg/mL Total Protein (6.3-8.2) g/dL Albumin (3.5-5.0) g/dL Critical Care Time Critical Care Time: Yes Total Critical Care Time: 35 Disposition Clinical Impression: Unstable angina pectoris Disposition: ADMITTED IP TO THIS HOSP Referrals: None,Stated [Primary Care Provider] - 1-2 days Time of Disposition: 15:21
--- NOTE | 2020-05-13 13:45 | XR ---
EXAMINATION TYPE: XR chest 2V DATE OF EXAM: 05/13/2020 COMPARISON: 01/06/2020 HISTORY: Shortness of breath TECHNIQUE: Frontal and lateral views of the chest are obtained. FINDINGS: Scattered senescent parenchymal changes noted. Hyperinflation compatible with COPD. No evidence for infiltrate. No evidence for atelectasis. Heart size is stable. Mediastinal structures are stable and grossly unremarkable. No evidence for hilar prominence. Degenerative changes dorsal spine. IMPRESSION: 1. No evidence for acute pulmonary disease.
[2020-05-13 13:56] LABS: Basophils # (A) 0.1 k/uL (0-0.2); Basophils % (A) 1 %; Eosinophils # (A) 0.2 k/uL (0-0.7); Eosinophils % (A) 3 %; HGB 11.8 gm/dL (11.4-16.0); Hypochromasia Moderate; Lymphocytes # (A) 2.5 k/uL (1.0-4.8); Lymphocytes % (A) 31 %; MCH 26.6 pg (25.0-35.0); MCHC 30.1 g/dL (31.0-37.0); MCV 88.4 fL (80.0-100.0); Monocytes # (A) 0.5 k/uL (0-1.0); Monocytes % (A) 6 %; Neutrophils # (A) 4.6 k/uL (1.3-7.7); Neutrophils % (A) 57 %; Platelet Count 250 k/uL (150-450); RBC 4.41 m/uL (3.80-5.40); RDW 14.4 % (11.5-15.5)
[2020-05-13 14:08] LABS: ALT 8 U/L (4-34); AST 18 U/L (14-36); African American GFR (CKD) >90 (>60 ml/min/1.73 sqM); Albumin 3.8 g/dL (3.5-5.0); Alkaline Phosphatase 79 U/L (38-126); Anion Gap 6 mmol/L; Blood Urea Nitrogen 17 mg/dL (7-17); Calcium 9.3 mg/dL (8.4-10.2); Carbon Dioxide 29 mmol/L (22-30); Chloride 101 mmol/L (98-107); Glucose 191 mg/dL (74-99); Magnesium 1.7 mg/dL (1.6-2.3); Non-African American GFR(CKD) 80 (>60 ml/min/1.73 sqM); Potassium 4.7 mmol/L (3.5-5.1); Sodium 136 mmol/L (137-145); Total Bilirubin 0.3 mg/dL (0.2-1.3); Total Protein 7.1 g/dL (6.3-8.2)
[2020-05-13] MEDS ORDERED: HEPARIN SODIUM,PORCINE 5,000 UNIT/ML 1 ML VIAL IV ONE (15:11)
[2020-05-13] MEDS ORDERED: HEPARIN SOD,PORK IN 0.45% NACL 25,000 UNIT in 0.45% NACL 1 250ML.BAG IV SCH (15:15)
[2020-05-13] MEDS ORDERED: NITROGLYCERIN SL TABS 0.4 MG TAB SUBLINGUAL PRN (15:23)
[2020-05-13] MEDS ORDERED: PREGABALIN 75 MG CAP PO PRN (18:00)
[2020-05-13] MEDS ORDERED: ALBUTEROL NEBULIZED 2.5 MG/3 ML INHALATION PRN (18:00)
[2020-05-13] MEDS ORDERED: ONDANSETRON 4 MG/2 ML VIAL IVP PRN (18:05)
[2020-05-13] MEDS ORDERED: ACETAMINOPHEN TAB 325 MG TAB PO PRN (18:05)
[2020-05-13] MEDS: NITROGLYCERIN OINT 1 INCH/GM PACKET TOPICAL SCH (20:06)
--- NOTE | 2020-05-13 20:06 | P.HPIM ---
History of Present Illness this is a pleasant 75 years old [place]-ta[place] female with past medical history of heart failure , COPD, Chronic hypoxic resp failure on home oxygen 6 L/M, diabetes mellitus, hypertension , hyperlipidemia kidney cancer s/p nephrectomy , diabetic retinopathy with legal blindness, diabetic neuropathy and diabetic nephropathy . pt is recently moved from [facility] to [place] , she could not give detailed information , for eg she does not know which doctors she was following with, she does not know why she is on oxygen or why she is on eliquis she presents with chest pain for two months duration became worse over the last two days so she decided to come to ED, the pain is central , goes from side to side as per pt, felt like knife, non specific about 4-5/10 in severity . she is not dyspneic , and she denies n/v , no dizziness, no palpitation she is on 6 L/m oxygen via [place] vitals look stable, labs showing unremarkable CBC, BMP, Liver enz, two troponins are less than 0.012 and 0.019. chest xray: no acute process , EKG: normal sinus rhythm at [address]-t changes, qtc 417 in ED she was started on heparin drop for suspicion of unstable angina as per ED physician dr. singh. Review of Systems CONSTITUTIONAL: No fever, no malaise, no fatigue. HEENT: No recent visual problems or hearing problems. Denied any sore throat. CARDIOVASCULAR: No orthopnea, PND, no palpitations, no syncope. PULMONARY: No shortness of breath, no cough, no hemoptysis. GASTROINTESTINAL: No diarrhea, no nausea, no vomiting, no abdominal pain. Normoactive bowel sounds. NEUROLOGICAL: No headaches, no weakness, no numbness. HEMATOLOGICAL: Denies any bleeding or petechiae. GENITOURINARY: Denies any burning micturition, frequency, or urgency. MUSCULOSKELETAL/RHEUMATOLOGICAL: Denies any joint pain, swelling, or any muscle pain. ENDOCRINE: Denies any polyuria or polydipsia. Past Medical History Past Medical History: Cancer, Heart Failure, COPD, Diabetes Mellitus, Eye Disorder, Hyperlipidemia, Hypertension, Pneumonia Additional Past Medical History / Comment(s): Kidney cancer post-nephrectomy on the right, IDDM type II, neuropathy bilateral hands/feet, bilateral diabetic retinopathy with legal blindness in the past but vision better since eye injections, recent diagnosis of DVT of the right lower extremity, bronchitis, home oxygen at 6L/[place] ATC, chronic elevation of the left hemidiaphragm, obstructive sleep apnea currently not using device, thoracolumbar kyphoscoliosis, constipation History of Any Multi-Drug Resistant Organisms: None Reported Past Surgical History: Appendectomy, Back Surgery, Hernia Repair, Joint Replacement, Tubal Ligation Additional Past Surgical History / Comment(s): Low back surgery, total R shoulder, R nephrectomy, several abdominal hernia surgeries, colonoscopy Past Anesthesia/Blood Transfusion Reactions: No Reported Reaction Additional Past Anesthesia/Blood Transfusion Reaction / Comment(s): Pt has received blood in past without reaction. Smoking Status: Never smoker - Past Family History Mother Family Medical History: Cancer Father Family Medical History: Unable to Obtain Additional Family Medical History / Comment(s): Father when pt was 1 yrs old. Medications and Allergies Home Medications Medication Instructions Recorded Confirmed Type RX: Apixaban [Eliquis] 5 mg PO BID 10/08/19 05/13/20 History RX: metFORMIN HCL [Glucophage] 500 mg PO AC-BID tab 01/08/20 05/13/20 Rx Albuterol Sulfate [Ventolin HFA] 2 puff INHALATION RT-QID PRN 05/13/20 05/13/20 History Esomeprazole Magnesium [NexIUM 20 mg PO DAILY 05/13/20 05/13/20 History 24Hr] Loratadine [Claritin] 10 mg PO DAILY 05/13/20 05/13/20 History Pregabalin [Lyrica] 75 mg PO DAILY PRN 05/13/20 05/13/20 History RX: Insulin Detemir (Levemir) 20 - 22 unit SQ DAILY 05/13/20 05/13/20 History [Levemir] Allergies Allergy/AdvReac Type Severity Reaction Status Date / Time rofecoxib [From Vioxx] AdvReac Confusion Verified 05/13/20 14:56 Physical Exam Vitals: Vital Signs Temp Pulse Pulse Resp BP BP Pulse Ox 05/13/20 16:40 98.7 F 83 14 154/64 95 05/13/20 16:00 97.6 F 77 18 113/77 100 05/13/20 13:52 89 20 147/87 100 05/13/20 12:39 98.7 F 99 18 140/63 92 L Intake and Output 05/13/20 05/13/20 05/13/20 06:59 14:59 22:59 Other: Weight 127.006 kg 127.006 kg GENERAL: The patient is alert and oriented x3, not in any acute distress. obese HEENT: Pupils are round and equally reacting to light. EOMI. No scleral icterus. No conjunctival pallor. Normocephalic, atraumatic. No pharyngeal erythema. No thyromegaly. CARDIOVASCULAR: S1 and S2 present. No murmurs, rubs, or gallops. PULMONARY: Chest is clear to auscultation, no wheezing or crackles. ABDOMEN: Soft, nontender, nondistended, normoactive bowel sounds. No palpable organomegaly. MUSCULOSKELETAL: No joint swelling or deformity. EXTREMITIES: No cyanosis, clubbing, or pedal edema. NEUROLOGICAL: Gross neurological examination did not reveal any focal deficits. SKIN: No rashes. No petechiae Results CBC & Chem 7: 05/13/20 13:00 05/13/20 13:00 Labs: Abnormal Lab Results - Last 24 Hours (Table) 05/13/20 05/13/20 Range/Units 13:00 13:00 MCHC 30.1 L (31.0-37.0) g/dL Sodium 136 L (137-145) mmol/L Glucose 191 H (74-99) mg/dL Thrombosis Risk Factor Assmnt - Choose All That Apply Any of the Below Risk Factors Present?: Yes Each Factor Represents 1 point: Abnormal pulmonary function (COPD), Obesity (BMI >25) Other Risk Factors: Yes Each Risk Factor Represents 2 Points: Malignancy Each Risk Factor Represents 3 Points: Age 75 years or older, History of DVT/PE Other congenital or acquired thrombophilia - If yes, enter type in comment: No Thrombosis Risk Factor Assessment Total Risk Factor Score: 10 Thrombosis Risk Factor Assessment Level: High Risk Assessment and Plan Assessment: chest pain, rule out cardiac causes heart failure, unknown EF COPD, Chronic hypoxic resp failure on home oxygen 6 L/M, diabetes mellitus hypertension hyperlipidemia kidney cancer s/p nephrectomy diabetic retinopathy with legal blindness diabetic neuropathy diabetic nephropathy morbid obesitty Plan: This is a pleasant 75 years old [facility] female who presents because of chest pain, we'll do sooner troponins and EKG. Cardiology consult. c/w heparin drip while holding eliquis till evaluated by cardiology service Labs and medication were reviewed.. Continue same treatment. Continue with symptomatic treatment. Resume home medication. Monitor lytes and vitals. DVT and GI prophylaxis. Further recommendations of the clinical course of the patient DVT prophylaxis: heparin GI Prophylaxis: Ppi Prognosis is guarded
[2020-05-13 23:08] LABS: Glucose,Whole Blood 220 mg/dL (75-99)
[2020-05-13] MEDS ORDERED: HEPARIN SODIUM,PORCINE 5,000 UNIT/ML 1 ML VIAL IV STA (23:15)
[2020-05-13] MEDS: INSULIN ASPART (NovoLOG) 100 UNIT/ML VIAL SQ SCH (23:29)
[2020-05-14] MEDS: NITROGLYCERIN OINT 1 INCH/GM PACKET TOPICAL SCH ×2 (00:21→06:55)
[2020-05-14 04:21] VITALS: RESP 12
[2020-05-14 06:25] LABS: Glucose,Whole Blood 158 mg/dL (75-99)
[2020-05-14] MEDS ORDERED: PANTOPRAZOLE 40 MG TABLET PO SCH (07:30)
[2020-05-14] MEDS ORDERED: metFORMIN 500 MG TAB PO SCH (07:30)
[2020-05-14] MEDS: INSULIN ASPART (NovoLOG) 100 UNIT/ML VIAL SQ SCH ×2 (08:21→13:51)
[2020-05-14 08:25] VITALS: BP 145/79; PULSE 89; TEMP 98
[2020-05-14] MEDS ORDERED: INSULIN DETEMIR (LEVEMIR) 100 UNIT/ML SYR SQ SCH (09:00)
[2020-05-14] MEDS ORDERED: LORATADINE 10 MG TAB PO SCH (09:00)
[2020-05-14] MEDS ORDERED: ASPIRIN 325 MG TAB PO SCH (09:00)
--- NOTE | 2020-05-14 10:11 | P.CRDCN ---
History of Present Illness History of present illness: HISTORY OF PRESENTING ILLNESS This is a pleasant 75-year-old female past medical history significant for COPD on home oxygen, diabetes mellitus, kidney cancer status post right nephrectomy and history of DVT maintained on long-term anticoagulation. 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 We have been asked to see in consultation for chest pain. She states intermittently for the previous 1-month she has been experiencing a stabbing pain in the mid-sternal region that radiates to the left precordial region at times. There is no radiation down the arm, into the back or neck. She has some associated shortness of breath at times, but not all the time. Her symptoms occur at rest and are not exacerbated by activity or deep breathing. She denies cough, fever or chills at home. She is a poor historian. She states she is taking eliquis because of a DVT in her right leg many years ago and has been taking up until 2 months ago when her prescription ran out. She is agitated by the temperature in her room and complaining about having to wait for assistance to the bathroom. She was evaluated in the hospital in December of this year secondary to elevated troponin. She underwent an echocardiogram at that time revealing preserved LV systolic function with ejection fraction 60-65%, diastolic dysfunction, moderate MR, moderate TR moderate pulmonary hypertension with RVSP of 57 mmHg. Upon discharge at that time she was prescribed Lopressor, aspirin, hydralazine, amlodipine and Imdur. However it doesn't appear she is taking any of them. DIAGNOSTICS EKG reveals sinus mechanism, right axis deviation, right bundle branch block and poor R-wave progression. Chest xray negative for an acute cardiopulmonary process. Laboratory reviewed, WBC 8.0, hemoglobin 11.8, platelets 250, sodium 136, potassium 4.7, creatinine 0.74, cardiac enzymes negative 3, and T proBNP 240. She takes no daily cardiac medications. REVIEW OF SYSTEMS At the time of my exam: CONSTITUTIONAL: Denies fever or chills. CARDIOVASCULAR: Denies chest pain, shortness of breath, orthopnea, PND or palpitations. RESPIRATORY: Denies cough. GASTROINTESTINAL: Denies abdominal pain, diarrhea, constipation, nausea or vomiting. MUSCULOSKELETAL: Denies myalgias. NEUROLOGIC: Denies numbness, tingling or weakness. ENDOCRINE: Denies fatigue, weight change, polydipsia or polyurina. GENITOURINARY: Denies burning, hematuria or urgency with micturation. HEMATOLOGIC: Denies history of anemia or bleeding. PHYSICAL EXAMINATION Blood pressure 145/79 heart rate 89 afebrile and maintaining oxygen saturation on 100. CONSTITUTIONAL: No apparent distress. Mobridly obese. HEENT: Head is normocephalic. Pupils are equal, round. Sclerae anicteric. Mucous membranes of the mouth are moist. No JVD. No carotid bruit. CHEST EXAMINATION: Lungs are clear to auscultation. No chest wall tenderness is noted on palpation or with deep breathing. HEART EXAMINATION: Regular rate and rhythm. S1, S2 heard. Systolic ejection murmur at the left sternal border, no gallops or rub. ABDOMEN: Soft, nontender. Positive bowel sounds. EXTREMITIES: 2+ peripheral pulses, no lower extremity edema and no calf tenderness. NEUROLOGIC EXAMINATION: Patient is awake, alert and oriented x3. ASSESSMENT Chest pain, atypical for angina. An acute event has been ruled out. Diabetes mellitus COPD on home oxygen Kidney cancer s/p right nephrectomy History of DVT maintained on eliquis Pulmonary hypertension Valvular heart disease Morbid obesity, BMI 52 PLAN An acute coronary event has been ruled out. Check d-dimer. Resume lopressor 25 mg BID, imdur 30 mg daily, atorvastatin 40 mg daily and low dose aspirin. Increase activity and assess for exertional symptoms of angina. Obtain 2D echocardiogram and doppler study to assess cardiac structure and function. Thank you kindly for this consultation. Nurse Practitioner note has been reviewed, I agree with a documented findings and plan of care. Patient was seen and examined. Past Medical History Past Medical History: Cancer, Heart Failure, COPD, Diabetes Mellitus, Eye Disorder, Hyperlipidemia, Hypertension, Pneumonia Additional Past Medical History / Comment(s): Kidney cancer post-nephrectomy on the right, IDDM type II, neuropathy bilateral hands/feet, bilateral diabetic retinopathy with legal blindness in the past but vision better since eye injections, recent diagnosis of DVT of the right lower extremity, bronchitis, home oxygen at 6L/[place] ATC, chronic elevation of the left hemidiaphragm, obstructive sleep apnea currently not using device, thoracolumbar kyphoscoliosis, constipation History of Any Multi-Drug Resistant Organisms: None Reported Past Surgical History: Appendectomy, Back Surgery, Hernia Repair, Joint Replacement, Tubal Ligation Additional Past Surgical History / Comment(s): Low back surgery, total R shoulder, R nephrectomy, several abdominal hernia surgeries, colonoscopy Past Anesthesia/Blood Transfusion Reactions: No Reported Reaction Additional Past Anesthesia/Blood Transfusion Reaction / Comment(s): Pt has received blood in past without reaction. Smoking Status: Never smoker - Past Family History Mother Family Medical History: Cancer Father Family Medical History: Unable to Obtain Additional Family Medical History / Comment(s): Father when pt was 1 yrs old. Medications and Allergies Home Medications Medication Instructions Recorded Confirmed Type Apixaban [Eliquis] 5 mg PO BID 10/08/19 05/13/20 History metFORMIN HCL [Glucophage] 500 mg PO AC-BID tab 01/08/20 05/13/20 Rx Albuterol Sulfate [Ventolin HFA] 2 puff INHALATION RT-QID PRN 05/13/20 05/13/20 History Esomeprazole Magnesium [NexIUM 20 mg PO DAILY 05/13/20 05/13/20 History 24Hr] Insulin Detemir (Levemir) [Levemir] 20 - 22 unit SQ DAILY 05/13/20 05/13/20 History Loratadine [Claritin] 10 mg PO DAILY 05/13/20 05/13/20 History Pregabalin [Lyrica] 75 mg PO DAILY PRN 05/13/20 05/13/20 History Allergies Allergy/AdvReac Type Severity Reaction Status Date / Time rofecoxib [From Vioxx] AdvReac Confusion Verified 05/13/20 14:56 Physical Exam Vitals: Vital Signs Temp Pulse Pulse Resp BP BP Pulse Ox 05/14/20 08:00 98 F 89 145/79 100 05/14/20 04:18 98.2 F 97 12 140/82 98 05/13/20 19:51 98.2 F 98 18 162/89 98 05/13/20 16:40 98.7 F 83 14 154/64 95 05/13/20 16:00 97.6 F 77 18 113/77 100 05/13/20 13:52 89 20 147/87 100 05/13/20 12:39 98.7 F 99 18 140/63 92 L Intake and Output 05/13/20 05/14/20 05/14/20 22:59 06:59 14:59 Intake Total 661.298 Balance 661.298 Intake: Intake, IV Titration 71.298 Amount Heparin Sod,Pork in 0.45% 71.298 NaCl 25,000 unit In 0.45 % NaCl 1 250ml.bag @ 7.87 UNITS/KG/HR 9.995 mls/hr IV .Q24H [facility] Rx#: [id number] Oral 590 Other: Voiding Method Toilet # Voids 2 4 1 Weight 127.006 kg Results 05/13/20 13:00 05/13/20 13:00 Cardiac Enzymes 05/13/20 05/13/20 05/13/20 Range/Units 13:00 13:00 18:13 AST 18 (14-36) U/L Troponin I <0.012 0.019 (0.000-0.034) ng/mL 05/13/20 Range/Units 21:49 AST (14-36) U/L Troponin I 0.013 (0.000-0.034) ng/mL Coagulation 05/13/20 05/13/20 05/14/20 Range/Units 13:00 21:49 06:46 PT 10.0 (9.0-12.0) sec APTT 23.0 40.3 H 110.5 H* (22.0-30.0) sec CBC 05/13/20 Range/Units 13:00 WBC 8.0 (3.8-10.6) k/uL RBC 4.41 (3.80-5.40) m/uL Hgb 11.8 (11.4-16.0) gm/dL Hct 39.0 (34.0-46.0) % Plt Count 250 (150-450) k/uL Comprehensive Metabolic Panel 05/13/20 Range/Units 13:00 Sodium 136 L (137-145) mmol/L Potassium 4.7 (3.5-5.1) mmol/L Chloride 101 (98-107) mmol/L Carbon Dioxide 29 (22-30) mmol/L BUN 17 (7-17) mg/dL Creatinine 0.74 (0.52-1.04) mg/dL Glucose 191 H (74-99) mg/dL Calcium 9.3 (8.4-10.2) mg/dL AST 18 (14-36) U/L ALT 8 (4-34) U/L Alkaline Phosphatase 79 (38-126) U/L Total Protein 7.1 (6.3-8.2) g/dL Albumin 3.8 (3.5-5.0) g/dL Current Medications Generic Name Dose Route Start Last Admin Trade Name Freq PRN Reason Stop Dose Admin Acetaminophen 650 mg 05/13/20 18:05 Tylenol Tab PO Q6HR PRN Fever and/ or Pain Albuterol Sulfate 2.5 mg 05/13/20 18:00 Ventolin Nebulized INHALATION RT-QID PRN Shortness Of Breath Aspirin 325 mg 05/14/20 09:00 05/14/20 08:21 Aspirin PO 325 mg DAILY [facility] Administration Heparin Sodium/Sodium Chloride 250 mls @ 9.995 mls/hr 05/13/20 15:15 05/13/20 23:17 25,000 unit/ Sodium Chloride IV 9.87 units/kg/hr .Q24H [facility] 12.535 mls/hr Titration Protocol 7.87 UNITS/KG/HR Insulin Aspart 0 unit 05/13/20 21:00 05/14/20 08:21 Novolog SQ 2 unit ACHS [facility] Administration Protocol Insulin Detemir 20 unit 05/14/20 09:00 05/14/20 08:21 Levemir SQ 20 unit DAILY [facility] Administration Loratadine 10 mg 05/14/20 09:00 05/14/20 08:21 Claritin PO 10 mg DAILY [facility] Administration Metformin HCl 500 mg 05/14/20 07:30 05/14/20 08:21 Glucophage PO 500 mg AC-BID [facility] Administration Nitroglycerin 0.4 mg 05/13/20 15:23 Nitrostat SUBLINGUAL Q5M PRN Chest Pain Nitroglycerin 1 inch 05/13/20 18:00 05/14/20 06:55 Nitro-Bid Oint TOPICAL 1 inch Q6HR [facility] Administration Ondansetron HCl 4 mg 05/13/20 18:05 Zofran IVP Q6HR PRN Nausea And Vomiting Pantoprazole Sodium 20 mg 05/14/20 07:30 05/14/20 08:21 Protonix PO 20 mg DAILY@0730 [facility] Administration Pregabalin 75 mg 05/13/20 18:00 Lyrica PO DAILY PRN Pain Intake and Output 05/13/20 05/14/20 05/14/20 22:59 06:59 14:59 Intake Total 661.298 Balance 661.298 Intake: Intake, IV Titration 71.298 Amount Heparin Sod,Pork in 0.45% 71.298 NaCl 25,000 unit In 0.45 % NaCl 1 250ml.bag @ 7.87 UNITS/KG/HR 9.995 mls/hr IV .Q24H [facility] Rx#: [id number] Oral 590 Other: Voiding Method Toilet # Voids 2 4 1 Weight 127.006 kg 05/13/20 13:00 05/13/20 13:00
[2020-05-14] MEDS ORDERED: ISOSORBIDE MONONITRATE ER 30 MG TAB.ER.24H PO SCH (10:15)
[2020-05-14] MEDS ORDERED: METOPROLOL TARTRATE 25 MG TAB PO SCH (10:15)
[2020-05-14] MEDS ORDERED: ATORVASTATIN 40 MG TAB PO SCH (10:15)
[2020-05-14 10:18] LABS: Cholesterol 200 mg/dL (<200); HDL Cholesterol 60 mg/dL (40-60); LDL Cholesterol,Calculated 126 mg/dL (0-99); Triglycerides 69 mg/dL (<150)
--- NOTE | 2020-05-14 11:51 | P.PN ---
Subjective this is a pleasant 75 years old [place]-ni[place] female with past medical history of heart failure , COPD, Chronic hypoxic resp failure on home oxygen 6 L/M, diabetes mellitus, hypertension , hyperlipidemia kidney cancer s/p nephrectomy , diabetic retinopathy with legal blindness, diabetic neuropathy and diabetic nephropathy . pt is recently moved from [facility] to [place] , she could not give detailed information , for eg she does not know which doctors she was following with, she does not know why she is on oxygen or why she is on eliquis she presents with chest pain for two months duration became worse over the last two days so she decided to come to ED, the pain is central , goes from side to side as per pt, felt like knife, non specific about 4-5/10 in severity . she is not dyspneic , and she denies n/v , no dizziness, no palpitation she is on 6 L/m oxygen via [place] vitals look stable, labs showing unremarkable CBC, BMP, Liver enz, two troponins are less than 0.012 and 0.019. chest xray: no acute process , EKG: normal sinus rhythm at [address]-t changes, qtc 417 in ED she was started on heparin drop for suspicion of unstable angina as per ED physician dr. singh. 05/14/2020 Patient is alert awake and oriented. She was in the hospital but she thought is [facility], she was sedated person and she was washing the hospital Patient says that she moved [place] about 20 years ago and her daughter lives in the area. Currently she has a visiting physician who comes to her senior home which is consistently event. She confirmed to me she was taken Eliquis for pain in the legs and she thinks she had a clot in her leg before. Also she has sleep apnea and uses a CPAP machine but it was broken She states she never smoked before. D-dimer checked and came back negative at 0.56. Waste Collection Driver evaluated the patient and recommended echo Resume Eliquis. Review of Systems CONSTITUTIONAL: No fever, no malaise, no fatigue. HEENT: No recent visual problems or hearing problems. Denied any sore throat. CARDIOVASCULAR: No orthopnea, PND, no palpitations, no syncope. PULMONARY: No shortness of breath, no cough, no hemoptysis. GASTROINTESTINAL: No diarrhea, no nausea, no vomiting, no abdominal pain. Normoactive bowel sounds. NEUROLOGICAL: No headaches, no weakness, no numbness. HEMATOLOGICAL: Denies any bleeding or petechiae. GENITOURINARY: Denies any burning micturition, frequency, or urgency. MUSCULOSKELETAL/RHEUMATOLOGICAL: Denies any joint pain, swelling, or any muscle pain. ENDOCRINE: Denies any polyuria or polydipsia. Active Medications Generic Name Dose Route Start Last Admin Trade Name Freq PRN Reason Stop Dose Admin Acetaminophen 650 mg 05/13/20 18:05 Tylenol Tab PO Q6HR PRN Fever and/ or Pain Albuterol Sulfate 2.5 mg 05/13/20 18:00 Ventolin Nebulized INHALATION RT-QID PRN Shortness Of Breath Apixaban 5 mg 05/14/20 12:00 Eliquis PO BID [facility] Aspirin 81 mg 05/15/20 09:00 Aspirin PO DAILY [facility] Atorvastatin Calcium 40 mg 05/14/20 10:15 05/14/20 11:44 Lipitor PO 40 mg DAILY [facility] Administration Insulin Aspart 0 unit 05/13/20 21:00 05/14/20 08:21 Novolog SQ 2 unit ACHS [facility] Administration Protocol Insulin Detemir 20 unit 05/14/20 09:00 05/14/20 08:21 Levemir SQ 20 unit DAILY [facility] Administration Isosorbide Mononitrate 30 mg 05/14/20 10:15 05/14/20 11:43 Imdur PO 30 mg DAILY [facility] Administration Loratadine 10 mg 05/14/20 09:00 05/14/20 08:21 Claritin PO 10 mg DAILY [facility] Administration Metformin HCl 500 mg 05/14/20 07:30 05/14/20 08:21 Glucophage PO 500 mg AC-BID [facility] Administration Metoprolol Tartrate 25 mg 05/14/20 10:15 05/14/20 11:43 Lopressor PO 25 mg BID [facility] Administration Nitroglycerin 0.4 mg 05/13/20 15:23 Nitrostat SUBLINGUAL Q5M PRN Chest Pain Ondansetron HCl 4 mg 05/13/20 18:05 Zofran IVP Q6HR PRN Nausea And Vomiting Pantoprazole Sodium 20 mg 05/14/20 07:30 05/14/20 08:21 Protonix PO 20 mg DAILY@0730 [facility] Administration Pregabalin 75 mg 05/13/20 18:00 Lyrica PO DAILY PRN Pain Objective - Vital Signs Vital signs: Vital Signs Temp 98 F 05/14/20 08:00 Pulse 89 05/14/20 08:00 Resp 12 05/14/20 04:18 BP 145/79 05/14/20 08:00 Pulse Ox 100 05/14/20 08:00 Intake & Output 05/13/20 05/14/20 05/14/20 18:59 06:59 18:59 Intake Total 661.298 Balance 661.298 Weight 127.006 kg Intake: Intake, IV Titration 71.298 Amount Heparin Sod,Pork in 0.45% 71.298 NaCl 25,000 unit In 0.45 % NaCl 1 250ml.bag @ 7.87 UNITS/KG/HR 9.995 mls/hr IV .Q24H [facility] Rx#: [id number] Oral 590 Other: Voiding Method Toilet Toilet # Voids 4 1 - Exam GENERAL: The patient is alert and oriented x3, not in any acute distress. Well developed, well nourished. HEENT: Pupils are round and equally reacting to light. EOMI. No scleral icterus. No conjunctival pallor. Normocephalic, atraumatic. No pharyngeal erythema. No thyromegaly. CARDIOVASCULAR: S1 and S2 present. No murmurs, rubs, or gallops. -PULMONARY: Chest is clear to auscultation, bilateral wheezing ABDOMEN: Soft, nontender, nondistended, normoactive bowel sounds. No palpable organomegaly. MUSCULOSKELETAL: No joint swelling or deformity. EXTREMITIES: No cyanosis, clubbing, or pedal edema. NEUROLOGICAL: Gross neurological examination did not reveal any focal deficits. SKIN: No rashes. no petechiae. - Labs CBC & Chem 7: 05/13/20 13:00 05/13/20 13:00 Labs: Abnormal Lab Results - Last 24 Hours (Table) 05/13/20 05/13/20 05/13/20 Range/Units 13:00 13:00 21:49 MCHC 30.1 L (31.0-37.0) g/dL APTT 40.3 H (22.0-30.0) sec Sodium 136 L (137-145) mmol/L Glucose 191 H (74-99) mg/dL POC Glucose (mg/dL) (75-99) mg/dL Cholesterol (<200) mg/dL LDL Cholesterol, Calc (0-99) mg/dL 05/13/20 05/14/20 05/14/20 Range/Units 23:03 06:23 06:46 MCHC (31.0-37.0) g/dL APTT (22.0-30.0) sec Sodium (137-145) mmol/L Glucose (74-99) mg/dL POC Glucose (mg/dL) 220 H 158 H (75-99) mg/dL Cholesterol 200 H (<200) mg/dL LDL Cholesterol, Calc 126 H (0-99) mg/dL 05/14/20 Range/Units 06:46 MCHC (31.0-37.0) g/dL APTT 110.5 H* (22.0-30.0) sec Sodium (137-145) mmol/L Glucose (74-99) mg/dL POC Glucose (mg/dL) (75-99) mg/dL Cholesterol (<200) mg/dL LDL Cholesterol, Calc (0-99) mg/dL Assessment and Plan Assessment: chest pain, rule out cardiac causes. She has negative d-dimer heart failure, unknown EF History of sleep apnea, on CPAP at home Chronic hypoxic resp failure on home oxygen 6 L/M, diabetes mellitus hypertension hyperlipidemia kidney cancer s/p nephrectomy diabetic retinopathy with legal blindness diabetic neuropathy diabetic nephropathy morbid obesitty Plan: This is a pleasant 75 years old [facility] female who presents because of chest pain, we'll do sooner troponins and EKG. Cardiology consult. c/w heparin drip while holding eliquis till evaluated by cardiology service Labs and medication were reviewed.. Continue same treatment. Continue with symptomatic treatment. Resume home medication. Monitor lytes and vitals. DVT and GI prophylaxis. Further recommendations of the clinical course of the patient DVT prophylaxis: Eliquis GI Prophylaxis: Ppi Prognosis is guarded
[2020-05-14] MEDS ORDERED: APIXABAN 5 MG TAB PO SCH (12:00)
[2020-05-14 12:21] LABS: Glucose,Whole Blood 151 mg/dL (75-99)
--- NOTE | 2020-05-14 13:00 | ECHOF ---
Referral Reason:cp, sob MEASUREMENTS -------- HEIGHT: 154.9 cm WEIGHT: 127.0 kg BP: RVIDd: 3.5 cm (< 3.3) IVSd: 1.5 cm (0.6 - 1.1) LVIDd: 2.5 cm (3.9 - 5.3) LVPWd: 1.3 cm (0.6 - 1.1) IVSs: 1.7 cm LVIDs: 1.5 cm LVPWs: 1.9 cm Ao Diam: 2.7 cm (2.0 - 3.7) AV Cusp: 1.9 cm (1.5 - 2.6) LA Diam: 2.5 cm (2.7 - 3.8) MV EXCURSION: 10.759 mm (> 18.000) MV EF SLOPE: 39 mm/s (70 - 150) EPSS: 1.9 cm MV E Zac: 0.95 m/s MV DecT: 205 ms MV A Zac: 1.40 m/s MV E/A Ratio: 0.68 AR PHT: 502 ms RAP: 5.00 mmHg RVSP: 42.27 mmHg FINDINGS -------- Sinus rhythm. This was a technically adequate study. The left ventricular size is normal. There is moderate concentric left ventricular hypertrophy. O verall left ventricular systolic function is normal with, an EF between 55 - 60 %. There is paradox ical/dysynergic septal motion consistent with right ventricular volume overload and/or elevated right ventricular end-diastolic pressure. The right ventricle is mildly enlarged. The left atrial size is normal. The right atrial size is normal. The aortic valve is trileaflet and appears structurally normal. There is mild aortic regurgitation. The mitral valve leaflets are moderately thickened. Moderate mitral annular calcification present. Mild mitral regurgitation is present. The peak and mean MV gradients are 14.83mmHg 6.69mmHg as m easured by doppler. [id number] mitral stenosis. The tricuspid valve appears structurally normal. Mild tricuspid regurgitation present. There is m ild pulmonary hypertension. The right ventricular systolic pressure, as measured by Doppler, is 42. 27mmHg. The pulmonic valve was not well visualized. The aortic root size is normal. IVC Not well visulized. There is no pericardial effusion. CONCLUSIONS -------- 1. Sinus rhythm. 2. This was a technically adequate study. 3. The left ventricular size is normal. 4. There is moderate concentric left ventricular hypertrophy. 5. Overall left ventricular systolic function is normal with, an EF between 55 - 60 %. 6. There is paradoxical/dysynergic septal motion consistent with right ventricular volume overload an d/or elevated right ventricular end-diastolic pressure. 7. The right ventricle is mildly enlarged. 8. The left atrial size is normal. 9. The right atrial size is normal. 10. The aortic valve is trileaflet and appears structurally normal. 11. There is mild aortic regurgitation. 12. The mitral valve leaflets are moderately thickened. 13. Moderate mitral annular calcification present. 14. Mild mitral regurgitation is present. 15. The peak and mean MV gradients are 14.83mmHg 6.69mmHg as measured by doppler. 16. [id number] mitral stenosis. 17. The tricuspid valve appears structurally normal. 18. Mild tricuspid regurgitation present. 19. There is mild pulmonary hypertension. 20. The right ventricular systolic pressure, as measured by Doppler, is 42.27mmHg. 21. The pulmonic valve was not well visualized. 22. The aortic root size is normal. 23. IVC Not well visulized. 24. There is no pericardial effusion. RETAIL LOAN ORIGINATOR: Nova Fernandes RDCS
[2020-05-15] MEDS ORDERED: ASPIRIN 81 MG PO SCH (09:00)
== END 2020-05-14 15:47 | disposition home health service (06) ==
LOC: EC 12:11 → 1SOBS 15:23
PROVIDERS: ADMIT Internal Medicine; ATTEND Internal Medicine
DX: R07.89 Other chest pain (principal); E78.00 Pure hypercholesterolemia, unspecified; E78.5 Hyperlipidemia, unspecified; J98.6 Disorders of diaphragm; G47.33 Obstructive sleep apnea (adult) (pediatric); M41.85 Other forms of scoliosis, thoracolumbar region; I11.0 Hypertensive heart disease with heart failure; I50.9 Heart failure, unspecified; J44.9 Chronic obstructive pulmonary disease, unspecified; J96.11 Chronic respiratory failure with hypoxia; E11.42 Type 2 diabetes mellitus with diabetic polyneuropathy; E11.319 Type 2 diabetes mellitus with unspecified diabetic retinopathy without macular edema; H54.8 Legal blindness, as defined in USA; E11.21 Type 2 diabetes mellitus with diabetic nephropathy; I45.10 Unspecified right bundle-branch block; R94.31 Abnormal electrocardiogram [ECG] [EKG]; I27.20 Pulmonary hypertension, unspecified; I05.0 Rheumatic mitral stenosis; E66.01 Morbid (severe) obesity due to excess calories; Z68.43 Body mass index [BMI] 50.0-59.9, adult; Z03.818 Encounter for observation for suspected exposure to other biological agents ruled out; Z86.718 Personal history of other venous thrombosis and embolism; Z79.01 Long term (current) use of anticoagulants; Z79.899 Other long term (current) drug therapy; Z79.4 Long term (current) use of insulin; Z88.6 Allergy status to analgesic agent; Z85.528 Personal history of other malignant neoplasm of kidney; Z86.711 Personal history of pulmonary embolism; Z90.5 Acquired absence of kidney; Z90.49 Acquired absence of other specified parts of digestive tract; Z98.890 Other specified postprocedural states; Z87.19 Personal history of other diseases of the digestive system; Z99.81 Dependence on supplemental oxygen; Z87.01 Personal history of pneumonia (recurrent); Z96.611 Presence of right artificial shoulder joint; Z98.51 Tubal ligation status; Z80.9 Family history of malignant neoplasm, unspecified
CPT/HCPCS: 96366 ×2; 96376 ×2; 96365; 99291; 36415; 93005; 93306; 85379; 83880; 80061; 80053; 83735; 84484; 85025; 85610; 85730 ×2; 71046; G0378 ×2; U0003; J1644 ×2

== ENCOUNTER 2020-07-29 14:06 | Emergency (ER) | payer MEDICARE ==
[2020-07-29] MEDS ORDERED: SODIUM CHLORIDE 0.9% 500 ML 500 ML IV ONE (14:32)
--- NOTE | 2020-07-29 14:49 | ED ---
Fall HPI - General Chief Complaint: Fall Stated Complaint: fall Time Seen by Provider: 07/29/20 14:18 Source: patient, EMS Mode of arrival: EMS - History of Present Illness Initial Comments: Patient is 75-year-old diabetic female with history of oxygen-dependent COPD presenting to the emergency department with a chief complaint of a fall. Patient states she recently got a new wheelchair that is bigger than her usual one. Patient states she has difficulty time and bleeding with it. States today she lost balance and fell forward over to will trip. Patient states she "fell hard". She does report a head injury but denies any loss of consciousness. She also reports bilateral knee pain is not able to ambulated through pain. Patient also reports bilateral flank pain that is exacerbated with left and right rotation. Denies any nausea or vomiting. - Related Data Home Medications Medication Instructions Recorded Confirmed Albuterol Sulfate [Ventolin HFA] 2 puff INHALATION RT-QID PRN 05/13/20 05/13/20 Esomeprazole Magnesium [NexIUM 20 mg PO DAILY 05/13/20 05/13/20 24Hr] Loratadine [Claritin] 10 mg PO DAILY 05/13/20 05/13/20 Pregabalin [Lyrica] 75 mg PO DAILY PRN 05/13/20 05/13/20 Previous Rx's Medication Instructions Recorded Acetaminophen Tab [Tylenol] 650 mg PO Q6HR PRN tab 05/14/20 Apixaban [Eliquis] 5 mg PO BID #60 tab 05/14/20 Aspirin 81 mg PO DAILY #30 chew 05/14/20 Atorvastatin [Lipitor] 40 mg PO DAILY #30 tab 05/14/20 Insulin Detemir (Levemir) [Levemir] 20 - 22 unit SQ DAILY #1 vial 05/14/20 Isosorbide Mononitrate ER [Imdur] 30 mg PO DAILY #30 tab.er.24h 05/14/20 Metoprolol Tartrate [Lopressor] 25 mg PO BID #60 tab 05/14/20 Nitroglycerin Sl Tabs [Nitrostat] 0.4 mg SUBLINGUAL Q5M PRN #20 tab 05/14/20 metFORMIN HCL [Glucophage] 500 mg PO AC-BID #60 tab 05/14/20 Allergies Allergy/AdvReac Type Severity Reaction Status Date / Time rofecoxib [From Vioxx] AdvReac Confusion Verified 07/29/20 14:07 Review of Systems ROS Statement: Those systems with pertinent positive or pertinent negative responses have been documented in the HPI. ROS Other: All systems not noted in ROS Statement are negative. Past Medical History Past Medical History: Cancer, Heart Failure, COPD, Diabetes Mellitus, Eye Disorder, Hyperlipidemia, Hypertension, Pneumonia Additional Past Medical History / Comment(s): Kidney cancer post-nephrectomy on the right, IDDM type II, neuropathy bilateral hands/feet, bilateral diabetic retinopathy with legal blindness in the past but vision better since eye injections, recent diagnosis of DVT of the right lower extremity, bronchitis, home oxygen at 6L/[place] ATC, chronic elevation of the left hemidiaphragm, obstructive sleep apnea currently not using device, thoracolumbar kyphoscoliosis, constipation History of Any Multi-Drug Resistant Organisms: None Reported Past Surgical History: Appendectomy, Back Surgery, Hernia Repair, Joint Replacement, Tubal Ligation Additional Past Surgical History / Comment(s): Low back surgery, total R shoulder, R nephrectomy, several abdominal hernia surgeries, colonoscopy Past Anesthesia/Blood Transfusion Reactions: No Reported Reaction Additional Past Anesthesia/Blood Transfusion Reaction / Comment(s): Pt has received blood in past without reaction. Past Psychological History: No Psychological Hx Reported Smoking Status: Never smoker Past Alcohol Use History: None Reported Past Drug Use History: None Reported - Past Family History Mother Family Medical History: Cancer Father Family Medical History: Unable to Obtain Additional Family Medical History / Comment(s): Father when pt was 1 yrs old. General Exam Limitations: no limitations General appearance: alert, in no apparent distress, obese Head exam: Present: atraumatic, normocephalic, normal inspection. Absent: other (Negative Collazo sign, raccoon eyes, hemotympanum.) Eye exam: Present: normal appearance, PERRL, EOMI. Absent: scleral icterus, conjunctival injection, nystagmus Pupils: Present: normal accommodation ENT exam: Present: normal exam, normal oropharynx, mucous membranes moist Neck exam: Present: normal inspection, full ROM. Absent: tenderness Respiratory exam: Present: normal lung sounds bilaterally. Absent: respiratory distress, wheezes, rales, rhonchi, stridor, chest wall tenderness Cardiovascular Exam: Present: regular rate, normal rhythm, normal heart sounds GI/Abdominal exam: Present: soft, tenderness (Mild, bilateral flank pain.). Absent: distended, guarding, rebound, rigid Extremities exam: Present: normal inspection, tenderness (Infrapatellar tenderness in bilateral knees.), normal capillary refill, pedal edema (+1 bilateral, nonpitting.), other (Large body habitus. +2 dorsalis pedis and po sterior tibials bilaterally.). Absent: full ROM (Limited range of motion of bilateral knees due to pain.), joint swelling, calf tenderness Back exam: Present: normal inspection, full ROM. Absent: tenderness, CVA tenderness (R), CVA tenderness (L) Neurological exam: Present: alert, oriented X3 Psychiatric exam: Present: normal affect, normal mood Skin exam: Present: warm, dry, intact, normal color Course Vital Signs 07/29/20 07/29/20 07/29/20 14:07 15:43 17:30 Temperature 98.8 F 98.0 F Pulse Rate 102 H 70 92 Respiratory 20 20 18 Rate Blood Pressure 171/70 166/69 165/94 O2 Sat by Pulse 100 99 100 Oximetry 07/29/20 18:30 Temperature 98.0 F Pulse Rate 90 Respiratory 18 Rate Blood Pressure 164/87 O2 Sat by Pulse 99 Oximetry Medical Decision Making - Medical Decision Making Patient is a 75-year-old diabetic female with oxygen-dependent COPD presenting to emergency Department with a chief complaint of fall. Patient did have a head injury. She is currently on blood thinners. Physical exam reveals no significant signs of trauma. She does have pain in bilateral knees along with bilateral, mild flank pain. CBC is unremarkable. CMP shows elevated glucose levels. She was given 10 units of insulin. X-ray of bilateral knees reveals moderately severe osteoarthritis. Mild knee joint effusions. CT of the brain and C-spine reveals multilevel cervical spondylitic changes but no fractures. There is cerebral atrophy but no significant changes compared to last brain computed tomography scan. CT of the abdomen and pelvis reveals some atelectasis in the left lower lobe. There is some elevation a left diaphragm which could be related to diaphragm paralysis. Right nephrectomy. Appendix is not seen but there are no signs of appendicitis. Patient reports she feels comfortable going home. Patient is not requesting any analgesia. She was given fluids. She will follow with the primary care physician. Strict return parameters were thoroughly discussed with patient was understanding and agreeable. Case discussed with physician. - Lab Data Result diagrams: 07/29/20 15:19 07/29/20 15:19 Lab Results 07/29/20 07/29/20 07/29/20 Range/Units 15:19 15:19 15:19 WBC 7.9 (3.8-10.6) k/uL RBC 4.16 (3.80-5.40) m/uL Hgb 11.1 L (11.4-16.0) gm/dL Hct 36.8 (34.0-46.0) % MCV 88.5 (80.0-100.0) fL MCH 26.7 (25.0-35.0) pg MCHC 30.1 L (31.0-37.0) g/dL RDW 13.3 (11.5-15.5) % Plt Count 238 (150-450) k/uL Neutrophils % 61 % Lymphocytes % 27 % Monocytes % 5 % Eosinophils % 4 % Basophils % 1 % Neutrophils # 4.8 (1.3-7.7) k/uL Lymphocytes # 2.1 (1.0-4.8) k/uL Monocytes # 0.4 (0-1.0) k/uL Eosinophils # 0.3 (0-0.7) k/uL Basophils # 0.0 (0-0.2) k/uL Hypochromasia Marked PT 9.7 (9.0-12.0) sec INR 0.9 (<1.2) APTT 23.1 (22.0-30.0) sec Sodium 135 L (137-145) mmol/L Potassium 4.5 (3.5-5.1) mmol/L Chloride 98 (98-107) mmol/L Carbon Dioxide 33 H (22-30) mmol/L Anion Gap 4 mmol/L BUN 15 (7-17) mg/dL Creatinine 0.84 (0.52-1.04) mg/dL Est GFR (CKD-EPI)AfAm 78 (>60 ml/min/1.73 sqM) Est GFR (CKD-EPI)NonAf 68 (>60 ml/min/1.73 sqM) Glucose 398 H (74-99) mg/dL POC Glucose (mg/dL) (75-99) mg/dL POC Glu Dry Starch Supervisor ID Calcium 8.9 (8.4-10.2) mg/dL Total Bilirubin 0.3 (0.2-1.3) mg/dL AST 17 (14-36) U/L ALT 9 (4-34) U/L Alkaline Phosphatase 70 (38-126) U/L Total Protein 6.0 L (6.3-8.2) g/dL Albumin 3.3 L (3.5-5.0) g/dL 07/29/20 Range/Units 18:14 WBC (3.8-10.6) k/uL RBC (3.80-5.40) m/uL Hgb (11.4-16.0) gm/dL Hct (34.0-46.0) % MCV (80.0-100.0) fL MCH (25.0-35.0) pg MCHC (31.0-37.0) g/dL RDW (11.5-15.5) % Plt Count (150-450) k/uL Neutrophils % % Lymphocytes % % Monocytes % % Eosinophils % % Basophils % % Neutrophils # (1.3-7.7) k/uL Lymphocytes # (1.0-4.8) k/uL Monocytes # (0-1.0) k/uL Eosinophils # (0-0.7) k/uL Basophils # (0-0.2) k/uL Hypochromasia PT (9.0-12.0) sec INR (<1.2) APTT (22.0-30.0) sec Sodium (137-145) mmol/L Potassium (3.5-5.1) mmol/L Chloride (98-107) mmol/L Carbon Dioxide (22-30) mmol/L Anion Gap mmol/L BUN (7-17) mg/dL Creatinine (0.52-1.04) mg/dL Est GFR (CKD-EPI)AfAm (>60 ml/min/1.73 sqM) Est GFR (CKD-EPI)NonAf (>60 ml/min/1.73 sqM) Glucose (74-99) mg/dL POC Glucose (mg/dL) 328 H (75-99) mg/dL POC Glu Dry Starch Supervisor ID Vipul, Jeni Calcium (8.4-10.2) mg/dL Total Bilirubin (0.2-1.3) mg/dL AST (14-36) U/L ALT (4-34) U/L Alkaline Phosphatase (38-126) U/L Total Protein (6.3-8.2) g/dL Albumin (3.5-5.0) g/dL Disposition Clinical Impression: Fall, Head injury, Bilateral knee pain Disposition: HOME SELF-CARE Condition: Stable Instructions (If sedation given, give patient instructions): Fall Prevention (ED) Additional Instructions: Follow with primary care physician. Return to emergency department if symptoms worsen. Is patient prescribed a controlled substance at d/c from ED?: No Referrals: None,Stated [REFERRING] - 1-2 days Time of Disposition: 17:24
[2020-07-29 16:01] LABS: Albumin 3.3 g/dL (3.5-5.0); Calcium 8.9 mg/dL (8.4-10.2); Potassium 4.5 mmol/L (3.5-5.1); Total Bilirubin 0.3 mg/dL (0.2-1.3)
[2020-07-29 16:05] LABS: INR 0.9 (<1.2); Partial Thromboplastin Time 23.1 sec (22.0-30.0); Prothrombin Time 9.7 sec (9.0-12.0)
[2020-07-29 16:09] LABS: Basophils % (A) 1 %; Eosinophils # (A) 0.3 k/uL (0-0.7); Eosinophils % (A) 4 %; HCT 36.8 % (34.0-46.0); HGB 11.1 gm/dL (11.4-16.0); Hypochromasia Marked; Lymphocytes # (A) 2.1 k/uL (1.0-4.8); Lymphocytes % (A) 27 %; MCH 26.7 pg (25.0-35.0); MCHC 30.1 g/dL (31.0-37.0); MCV 88.5 fL (80.0-100.0); Mean Platelet Volume 7.2; Monocytes # (A) 0.4 k/uL (0-1.0); Monocytes % (A) 5 %; Neutrophils # (A) 4.8 k/uL (1.3-7.7); Neutrophils % (A) 61 %; Platelet Count 238 k/uL (150-450); RBC 4.16 m/uL (3.80-5.40); RDW 13.3 % (11.5-15.5); WBC 7.9 k/uL (3.8-10.6)
--- NOTE | 2020-07-29 17:05 | CT ---
EXAMINATION TYPE: CT brain cspine wo con DATE OF EXAM: 07/29/2020 COMPARISON: CT brain 01/06/2020 HISTORY: Fall, dizziness, patient on blood thinners CT DLP: 1936.9 mGycm Automated exposure control for dose reduction was used. There is cerebral cortical atrophy. There is no mass effect nor midline shift. There is no sign of in tracranial hemorrhage. Calvarium is intact. Skull base is intact. There is normal aeration of the mas toid sinuses. There is normal alignment of the cervical vertebra. There is narrowing of disc spaces throughout the cervical spine with spur formation. There is no compression fracture. Facet joints are intact. There is mild pleural thickening in the right upper lobe consistent with scarring. IMPRESSION: Multilevel cervical spondylotic changes. No fracture. Cerebral atrophy. No acute intracranial abnormality. Brain unchanged compared to old exam.
--- NOTE | 2020-07-29 17:12 | CT ---
EXAMINATION TYPE: CT abdomen pelvis w con DATE OF EXAM: 07/29/2020 COMPARISON: None HISTORY: Fall, patient on blood thinners, RUQ pain CT DLP: 2611.9 mGycm Automated exposure control for dose reduction was used. CONTRAST: Performed with IV Contrast, patient injected with 80 mL of Isovue 300. Lung bases show some patchy atelectasis in the left lower lobe. There is no pleural effusion. There i s no pericardial effusion. Liver spleen stomach pancreas gallbladder appear normal. Bile ducts are not dilated. There are sravanthi us surgical clips from right nephrectomy. There is normal size left kidney with no hydronephrosis. De layed images show normal renal excretion. There is no adrenal mass. There is no retroperitoneal adenopathy. Abdominal aorta is atheromatous. Ur inary bladder is intact. There is no inguinal hernia. There are multiple phleboliths in the pelvis. T here are uterine fibroids. There is no mesenteric edema. There is no ascites or free air. There is some mass effect on the left anterior abdominal wall apparently from hernia surgery. There is skin deformity over the left anterio r lower abdomen related to scarring. Appendix is not seen. There is no sign of thickened appendix. Abdominal aorta is atheromatous. There are spondylotic changes in the lumbar spine with multilevel po sterior fusion surgery. There is no lumbar compression fracture. The bony pelvis is intact. There is no mesenteric edema. There is no ascites or free air. There is no bowel obstruction. IMPRESSION: There is some atelectasis in the left lower lobe. There is some elevation of the left diaphragm that could relate to diaphragm paralysis. Right nephrectomy. Appendix not seen. No sign of appendicitis. No acute abnormality within the abdome n pelvis.
--- NOTE | 2020-07-29 17:14 | XR ---
EXAMINATION TYPE: XR knee complete bilateral DATE OF EXAM: 07/29/2020 COMPARISON: NONE HISTORY: Fall. Knee pain TECHNIQUE: 3 views each knee FINDINGS: There is narrowing of the lateral joint spaces of both knees. There is spurring of the femo ral and tibial condyles. There is bilateral spurring at the patellofemoral joints. There is mild bila teral knee joint effusion. IMPRESSION: Moderately severe osteoarthritis with bilateral genu valgus. No fracture. Mild knee joint effusions.
[2020-07-29] MEDS ORDERED: INSULIN REGULAR 100 UNIT/ML VIAL IV ONE (17:48)
[2020-07-29 18:11] VITALS: RESP 18; TEMP 98
[2020-07-29 18:16] LABS: Glucose,Whole Blood 328 mg/dL (75-99)
[2020-07-29 18:36] VITALS: BP 164/87; PULSE 90
== END 2020-07-29 18:49 | disposition home or self-care (01) ==
LOC: EC 14:06
DX: S09.90XA Unspecified injury of head, initial encounter (principal); M47.812 Spondylosis without myelopathy or radiculopathy, cervical region; M17.0 Bilateral primary osteoarthritis of knee; R10.9 Unspecified abdominal pain; R73.09 Other abnormal glucose; G31.9 Degenerative disease of nervous system, unspecified; J98.11 Atelectasis; J98.6 Disorders of diaphragm; H54.8 Legal blindness, as defined in USA; J44.9 Chronic obstructive pulmonary disease, unspecified; Z79.899 Other long term (current) drug therapy; Z88.6 Allergy status to analgesic agent; Z90.5 Acquired absence of kidney; Z90.89 Acquired absence of other organs; Z96.60 Presence of unspecified orthopedic joint implant; Z98.51 Tubal ligation status; Z98.890 Other specified postprocedural states; Z86.718 Personal history of other venous thrombosis and embolism; Z85.528 Personal history of other malignant neoplasm of kidney; W05.0XXA Fall from non-moving wheelchair, initial encounter
CPT/HCPCS: 36415; 80053; 85025; 85610; 85730; 73562; 72125; 70450; 74177; 99284; 96374; 96361 ×2; Q9967

== ENCOUNTER 2020-08-18 08:31 | Emergency (ER) | payer MEDICARE ==
[2020-08-18 08:36] VITALS: TEMP 98.6
--- NOTE | 2020-08-18 08:44 | ED ---
Fall HPI - General Chief Complaint: Fall Stated Complaint: fall Time Seen by Provider: 08/18/20 08:31 Source: patient Mode of arrival: ambulatory - History of Present Illness Initial Comments: This is a 75-year-old female who uses a walker and normally uses home oxygen in the bathroom when she tripped over her walker. She hit her head she states on the way down he denies any headache she states she had dizziness afterwards. She is on [place]. Additionally she has been having urinary frequency. She also is complaining of right hip pain. Echo was unable to do so. Denies any other complaints outpatient no chest pain MD Complaint: fall - Related Data Home Medications Medication Instructions Recorded Confirmed Albuterol Sulfate [Ventolin HFA] 2 puff INHALATION RT-QID PRN 05/13/20 05/13/20 Esomeprazole Magnesium [NexIUM 20 mg PO DAILY 05/13/20 05/13/20 24Hr] Loratadine [Claritin] 10 mg PO DAILY 05/13/20 05/13/20 Pregabalin [Lyrica] 75 mg PO DAILY PRN 05/13/20 05/13/20 Previous Rx's Medication Instructions Recorded Acetaminophen Tab [Tylenol] 650 mg PO Q6HR PRN tab 05/14/20 Apixaban [Eliquis] 5 mg PO BID #60 tab 05/14/20 Aspirin 81 mg PO DAILY #30 chew 05/14/20 Atorvastatin [Lipitor] 40 mg PO DAILY #30 tab 05/14/20 Insulin Detemir (Levemir) [Levemir] 20 - 22 unit SQ DAILY #1 vial 05/14/20 Isosorbide Mononitrate ER [Imdur] 30 mg PO DAILY #30 tab.er.24h 05/14/20 Metoprolol Tartrate [Lopressor] 25 mg PO BID #60 tab 05/14/20 Nitroglycerin Sl Tabs [Nitrostat] 0.4 mg SUBLINGUAL Q5M PRN #20 tab 05/14/20 metFORMIN HCL [Glucophage] 500 mg PO AC-BID #60 tab 05/14/20 Cephalexin [Keflex] 500 mg PO Q6HR 1 Days #28 cap 08/18/20 Allergies Allergy/AdvReac Type Severity Reaction Status Date / Time rofecoxib [From Vioxx] AdvReac Confusion Verified 08/18/20 08:36 Review of Systems ROS Statement: Those systems with pertinent positive or pertinent negative responses have been documented in the HPI. ROS Other: All systems not noted in ROS Statement are negative. Past Medical History Past Medical History: Cancer, Heart Failure, COPD, Diabetes Mellitus, Eye Disorder, Hyperlipidemia, Hypertension, Pneumonia Additional Past Medical History / Comment(s): Kidney cancer post-nephrectomy on the right, IDDM type II, neuropathy bilateral hands/feet, bilateral diabetic retinopathy with legal blindness in the past but vision better since eye injections, recent diagnosis of DVT of the right lower extremity, bronchitis, home oxygen at 6L/[place] ATC, chronic elevation of the left hemidiaphragm, obstructive sleep apnea currently not using device, thoracolumbar kyphoscoliosis, constipation History of Any Multi-Drug Resistant Organisms: None Reported Past Surgical History: Appendectomy, Back Surgery, Hernia Repair, Joint Replace ment, Tubal Ligation Additional Past Surgical History / Comment(s): Low back surgery, total R shoulder, R nephrectomy, several abdominal hernia surgeries, colonoscopy Past Anesthesia/Blood Transfusion Reactions: No Reported Reaction Additional Past Anesthesia/Blood Transfusion Reaction / Comment(s): Pt has received blood in past without reaction. Past Psychological History: No Psychological Hx Reported Smoking Status: Never smoker Past Alcohol Use History: None Reported Past Drug Use History: None Reported - Past Family History Mother Family Medical History: Cancer Father Family Medical History: Unable to Obtain Additional Family Medical History / Comment(s): Father when pt was 1 yrs old. General Exam - General Exam Comments Initial Comments: This is a well-developed obese female who is awake alert oriented 3 with a Oscar Coma Scale of 15 Limitations: no limitations General appearance: alert, anxious Head exam: Present: atraumatic, normocephalic, normal inspection Eye exam: Present: normal appearance, PERRL, EOMI. Absent: scleral icterus, conjunctival injection, periorbital swelling ENT exam: Present: normal exam, mucous membranes moist Neck exam: Present: normal inspection, full ROM, other (No stridor JVD or bruits). Absent: tenderness, meningismus, lymphadenopathy Respiratory exam: Present: normal lung sounds bilaterally. Absent: respiratory distress, wheezes, rales, rhonchi, stridor Cardiovascular Exam: Present: regular rate, normal rhythm, normal heart sounds. Absent: systolic murmur, diastolic murmur, rubs, gallop, clicks GI/Abdominal exam: Present: soft, normal bowel sounds. Absent: distended, tenderness, guarding, rebound, rigid Rectal exam: Present: deferred Extremities exam: Present: normal inspection, full ROM, tenderness (Tenderness palpation of the right hip no shortening or rotation noted.), normal capillary refill. Absent: pedal edema, joint swelling, calf tenderness Back exam: Present: normal inspection Neurological exam: Present: alert, oriented X3, CN II-XII intact Psychiatric exam: Present: normal affect, normal mood Skin exam: Present: warm, dry, intact, normal color. Absent: rash Course Vital Signs 08/18/20 08/18/20 08:32 10:03 Temperature 98.6 F Pulse Rate 98 79 Respiratory 18 18 Rate Blood Pressure 173/74 185/90 O2 Sat by Pulse 97 97 Oximetry Medical Decision Making - Medical Decision Making I did discuss findings with the patient patient will receive IV antibiotics in emergency department and be discharged home on orals. - Lab Data Result diagrams: 08/18/20 09:26 08/18/20 09:26 Lab Results 08/18/20 08/18/20 08/18/20 Range/Units 09:26 09:26 09:26 WBC 7.2 (3.8-10.6) k/uL RBC 4.47 (3.80-5.40) m/uL Hgb 12.2 (11.4-16.0) gm/dL Hct 39.3 (34.0-46.0) % MCV 87.8 (80.0-100.0) fL MCH 27.3 (25.0-35.0) pg MCHC 31.1 (31.0-37.0) g/dL RDW 13.9 (11.5-15.5) % Plt Count 247 (150-450) k/uL Neutrophils % 67 % Lymphocytes % 21 % Monocytes % 6 % Eosinophils % 3 % Basophils % 1 % Neutrophils # 4.8 (1.3-7.7) k/uL Lymphocytes # 1.5 (1.0-4.8) k/uL Monocytes # 0.5 (0-1.0) k/uL Eosinophils # 0.2 (0-0.7) k/uL Basophils # 0.1 (0-0.2) k/uL Hypochromasia Slight Sodium 139 (137-145) mmol/L Potassium 4.5 (3.5-5.1) mmol/L Chloride 102 (98-107) mmol/L Carbon Dioxide 33 H (22-30) mmol/L Anion Gap 4 mmol/L BUN 13 (7-17) mg/dL Creatinine 0.82 (0.52-1.04) mg/dL Est GFR (CKD-EPI)AfAm 81 (>60 ml/min/1.73 sqM) Est GFR (CKD-EPI)NonAf 70 (>60 ml/min/1.73 sqM) Glucose 83 (74-99) mg/dL Calcium 9.2 (8.4-10.2) mg/dL Magnesium 1.6 (1.6-2.3) mg/dL Total Bilirubin 0.8 (0.2-1.3) mg/dL AST 21 (14-36) U/L ALT 8 (4-34) U/L Alkaline Phosphatase 56 (38-126) U/L Creatine Kinase 72 (30-135) U/L Total Protein 6.9 (6.3-8.2) g/dL Albumin 3.7 (3.5-5.0) g/dL Urine Color Light Yellow Urine Appearance Clear (Clear) Urine pH 6.5 (5.0-8.0) Ur Specific [place] 1.004 (1.001-1.035) Urine Protein Negative (Negative) Urine Glucose (UA) Trace H (Negative) Urine Ketones Negative (Negative) Urine Blood Moderate H (Negative) Urine Nitrite Negative (Negative) Urine Bilirubin Negative (Negative) Urine Urobilinogen <2.0 (<2.0) mg/dL Ur Leukocyte Esterase Large H (Negative) Urine RBC 1 (0-5) /hpf Urine WBC 27 H (0-5) /hpf Ur Squamous Epith Cells <1 (0-4) /hpf Urine Bacteria Rare H (None) /hpf - EKG Data -: EKG Interpreted by Mi EKG shows normal: sinus rhythm (Sinus rhythm of 86. Interval 190 QRS duration 108 QT/QTC 340/406 indeterminate axis right bundle-branch block pattern poor R- wave progression) - Radiology Data Radiology results: report reviewed, image reviewed (Acute findings) Disposition Clinical Impression: Fall, Urinary tract infection, Contusion of right hip Disposition: HOME SELF-CARE Condition: Good Instructions (If sedation given, give patient instructions): Fall Prevention for Older Adults (ED), Urinary Tract Infection in Women (ED), Contusion in Adults (ED) Additional Instructions: Antibiotic prescription sent to your preferred pharmacy Prescriptions: Cephalexin [Keflex] 500 mg PO Q6HR 1 Days #28 cap Is patient prescribed a controlled substance at d/c from ED?: No Referrals: Abdirashid Lucero MD [Primary Care Provider] - 1-2 days
[2020-08-18 09:37] LABS: Basophils # (A) 0.1 k/uL (0-0.2); Basophils % (A) 1 %; Eosinophils # (A) 0.2 k/uL (0-0.7); Eosinophils % (A) 3 %; HCT 39.3 % (34.0-46.0); HGB 12.2 gm/dL (11.4-16.0); Hypochromasia Slight; Lymphocytes # (A) 1.5 k/uL (1.0-4.8); Lymphocytes % (A) 21 %; MCH 27.3 pg (25.0-35.0); MCHC 31.1 g/dL (31.0-37.0); MCV 87.8 fL (80.0-100.0); Mean Platelet Volume 7.6; Monocytes # (A) 0.5 k/uL (0-1.0); Monocytes % (A) 6 %; Neutrophils # (A) 4.8 k/uL (1.3-7.7); Neutrophils % (A) 67 %; Platelet Count 247 k/uL (150-450); RBC 4.47 m/uL (3.80-5.40); RDW 13.9 % (11.5-15.5); WBC 7.2 k/uL (3.8-10.6)
[2020-08-18 09:43] LABS: Appearance,Urine Clear (Clear); Bacteria,Urine Rare /hpf; Bilirubin,Urine Negative (Negative); Blood,Urine Moderate (Negative); Color,Urine Light Yellow; Glucose,Urine (UA) Trace (Negative); Ketones,Urine Negative (Negative); Leukocyte Esterase,Urine Large (Negative); Nitrite,Urine Negative (Negative); PH, Urine 6.5 (5.0-8.0); Protein,Urine Negative (Negative); RBC,Urine 1 /hpf (0-5); Specific Gravity,Urine 1.004 (1.001-1.035); Squamous Epithelial Cell,Urine <1 /hpf (0-4); Urobilinogen,Urine <2.0 mg/dL (<2.0); WBC,Urine 27 /hpf (0-5)
[2020-08-18 09:49] LABS: Albumin 3.7 g/dL (3.5-5.0); Calcium 9.2 mg/dL (8.4-10.2); Magnesium 1.6 mg/dL (1.6-2.3); Potassium 4.5 mmol/L (3.5-5.1); Total Bilirubin 0.8 mg/dL (0.2-1.3); Total Protein 6.9 g/dL (6.3-8.2)
--- NOTE | 2020-08-18 09:55 | CT ---
EXAMINATION TYPE: CT brain wo con DATE OF EXAM: 08/18/2020 HISTORY: Fall injury with headache. CT DLP: 1111.4 mGycm. Automated Exposure Control for Dose Reduction was Utilized. TECHNIQUE: CT scan of the head is performed without contrast. COMPARISON: CT brain July 29, 2020. FINDINGS: There is no acute intracranial hemorrhage or midline shift identified. There is diffuse v entricular and sulcal prominence consistent with diffuse age-related cerebral atrophy. There is low- attenuation in the periventricular white matter consistent with chronic small vessel ischemic change. The calvarium is intact. The globes are intact and the visualized sinuses are clear. Vascular sanjeev cification distal internal carotid arteries bilaterally isn't significantly noted. IMPRESSION: No acute intracranial hemorrhage or midline shift. There is moderate diffuse cerebral a trophy and chronic small vessel ischemic change redemonstrated. No significant change from prior.
[2020-08-18 10:04] VITALS: BP 185/90
--- NOTE | 2020-08-18 10:09 | XR ---
EXAMINATION TYPE: XR chest 2V DATE OF EXAM: 08/18/2020 COMPARISON: Chest x-ray May 13, 2020 HISTORY: Fall injury [place]. Wheezing. TECHNIQUE: Frontal and lateral views of the chest are obtained. FINDINGS: Persistent elevated left hemidiaphragm with left basilar linear scarring and/or atelectasis . There is persistent cardiomegaly with central vascular congestion and mild interstitial edema. No p leural effusion or pneumothorax seen bilaterally. Partial visualization of surgical hardware right sh oulder level. Advanced degenerative change left glenohumeral joint redemonstrated. Surgical clips pos terior upper abdomen noted on lateral view similar to prior. IMPRESSION: Cardiomegaly with central vascular congestion, correlate for CHF exacerbation on backgrou nd chronic changes.
--- NOTE | 2020-08-18 10:11 | XR ---
EXAMINATION TYPE: XR Hip RT and AP Pelvis DATE OF EXAM: 08/18/2020 COMPARISON: CT abdomen and pelvis July 29, 2020 HISTORY: Fall injury with pelvic and right hip pain TECHNIQUE: A single AP view of the pelvis is obtained. Two views of the right hip are obtained. FINDINGS: There is no acute fracture/dislocation evident in the pelvis. The sacroiliac joints appea r symmetric and within normal limits. Pubic symphysis is intact. There are scattered bilateral pelvic phleboliths . Partial visualization of surgical change in the lower lumbar spine. Hip joints show mi ld to moderate axial joint space loss bilaterally. Two views of right hip show no acute fracture or dislocation. Artifact from overlying board is noted. No focal lytic or sclerotic lesion seen in the proximal right femur. IMPRESSION: There is no acute fracture or dislocation in the pelvis or right hip.
[2020-08-18] MEDS ORDERED: cefTRIAXone IN SWFI 1,000 MG/10 ML SYRINGE IVP STA (10:27)
[2020-08-18 11:21] VITALS: PULSE 71; RESP 162
== END 2020-08-18 11:20 | disposition home or self-care (01) ==
LOC: EC 08:31
DX: S70.01XA Contusion of right hip, initial encounter (principal); N39.0 Urinary tract infection, site not specified; E11.40 Type 2 diabetes mellitus with diabetic neuropathy, unspecified; I11.0 Hypertensive heart disease with heart failure; I50.9 Heart failure, unspecified; J44.9 Chronic obstructive pulmonary disease, unspecified; G47.33 Obstructive sleep apnea (adult) (pediatric); E11.319 Type 2 diabetes mellitus with unspecified diabetic retinopathy without macular edema; H54.8 Legal blindness, as defined in USA; Z79.899 Other long term (current) drug therapy; Z88.6 Allergy status to analgesic agent; Z86.718 Personal history of other venous thrombosis and embolism; Z85.528 Personal history of other malignant neoplasm of kidney; W01.0XXA Fall on same level from slipping, tripping and stumbling without subsequent striking against object, initial encounter; Y92.002 Bathroom of unspecified non-institutional (private) residence as the place of occurrence of the external cause
CPT/HCPCS: 36415; 93005; 80053; 82550; 83735; 85025; 81001; 87086; 73502; 71046; 70450; 99284; 96374; J0696

== ENCOUNTER 2020-10-23 04:27 | Emergency (ER) | payer MEDICARE ==
[2020-10-23] MEDS ORDERED: MORPHINE SULFATE 4 MG/ML SYRINGE IV STA (04:34)
--- NOTE | 2020-10-23 04:36 | ED ---
SOB HPI - General Stated Complaint: Leg Swelling Time Seen by Provider: 10/23/20 04:32 Source: RN notes reviewed, old records reviewed Limitations: no limitations - History of Present Illness Initial Comments: This is a 75-year-old female DF for evaluation patient comes in for concerns of CHF developing Irrijet infection, not feeling well lower extremity edema. Patient just completed. She will shortness of breath without fever no chest pain. Patient does have history of diabetes high blood pressure high cholesterol CHF and COPD MD Complaint: shortness of breath (Lower extremity edema possible UTI) -: unknown Severity: moderate Severity scale (1-10): 6 Quality: aching Consistency: constant Improves With: nothing Worsens With: nothing Known History Of: COPD Context: recent URI Associated Symptoms: denies other symptoms - Related Data Home Medications Medication Instructions Recorded Confirmed Albuterol Sulfate [Ventolin HFA] 2 puff INHALATION RT-QID PRN 05/13/20 05/13/20 Esomeprazole Magnesium [NexIUM 20 mg PO DAILY 05/13/20 05/13/20 24Hr] Loratadine [Claritin] 10 mg PO DAILY 05/13/20 05/13/20 Pregabalin [Lyrica] 75 mg PO DAILY PRN 05/13/20 05/13/20 Previous Rx's Medication Instructions Recorded Acetaminophen Tab [Tylenol] 650 mg PO Q6HR PRN tab 05/14/20 Apixaban [Eliquis] 5 mg PO BID #60 tab 05/14/20 Aspirin 81 mg PO DAILY #30 chew 05/14/20 Atorvastatin [Lipitor] 40 mg PO DAILY #30 tab 05/14/20 Insulin Detemir (Levemir) [Levemir] 20 - 22 unit SQ DAILY #1 vial 05/14/20 Isosorbide Mononitrate ER [Imdur] 30 mg PO DAILY #30 tab.er.24h 05/14/20 Metoprolol Tartrate [Lopressor] 25 mg PO BID #60 tab 05/14/20 Nitroglycerin Sl Tabs [Nitrostat] 0.4 mg SUBLINGUAL Q5M PRN #20 tab 05/14/20 metFORMIN HCL [Glucophage] 500 mg PO AC-BID #60 tab 05/14/20 Cephalexin [Keflex] 500 mg PO Q6HR 1 Days #28 cap 08/18/20 Allergies Allergy/AdvReac Type Severity Reaction Status Date / Time rofecoxib [From Vioxx] AdvReac Confusion Verified 08/18/20 08:36 Review of Systems ROS Statement: Those systems with pertinent positive or pertinent negative responses have been documented in the HPI. ROS Other: All systems not noted in ROS Statement are negative. Past Medical History Past Medical History: Cancer, Heart Failure, COPD, Diabetes Mellitus, Eye Disorder, Hyperlipidemia, Hypertension, Pneumonia Additional Past Medical History / Comment(s): Kidney cancer post-nephrectomy on the right, IDDM type II, neuropathy bilateral hands/feet, bilateral diabetic retinopathy with legal blindness in the past but vision better since eye injections, recent diagnosis of DVT of the right lower extremity, bronchitis, home oxygen at 6L/[place] ATC, chronic elevation of the left hemidiaphragm, obstructive sleep apnea currently not using device, thoracolumbar kyphosco liosis, constipation History of Any Multi-Drug Resistant Organisms: None Reported Past Surgical History: Appendectomy, Back Surgery, Hernia Repair, Joint Replacement, Tubal Ligation Additional Past Surgical History / Comment(s): Low back surgery, total R shoulder, R nephrectomy, several abdominal hernia surgeries, colonoscopy Past Anesthesia/Blood Transfusion Reactions: No Reported Reaction Additional Past Anesthesia/Blood Transfusion Reaction / Comment(s): Pt has received blood in past without reaction. Past Psychological History: No Psychological Hx Reported Smoking Status: Never smoker Past Alcohol Use History: None Reported Past Drug Use History: None Reported - Past Family History Mother Family Medical History: Cancer Father Family Medical History: Unable to Obtain Additional Family Medical History / Comment(s): Father when pt was 1 yrs old. General Exam General appearance: alert, in no apparent distress Head exam: Present: atraumatic, normocephalic, normal inspection Eye exam: Present: normal appearance, PERRL, EOMI. Absent: scleral icterus, con junctival injection, periorbital swelling ENT exam: Present: normal exam, mucous membranes moist Neck exam: Present: normal inspection. Absent: tenderness, meningismus, lymphadenopathy Respiratory exam: Present: normal lung sounds bilaterally. Absent: respiratory distress, wheezes, rales, rhonchi, stridor Cardiovascular Exam: Present: regular rate, normal rhythm, normal heart sounds. Absent: systolic murmur, diastolic murmur, rubs, gallop, clicks GI/Abdominal exam: Present: soft, normal bowel sounds. Absent: distended, tenderness, guarding, rebound, rigid Extremities exam: Present: normal inspection, full ROM, normal capillary refill, pedal edema, joint swelling. Absent: tenderness, calf tenderness Back exam: Present: normal inspection Neurological exam: Present: alert, oriented X3, CN II-XII intact Psychiatric exam: Present: normal affect, normal mood Skin exam: Present: warm, dry, intact, normal color. Absent: rash Course Vital Signs 10/23/20 04:43 Temperature 98.7 F Pulse Rate 98 Respiratory 20 Rate Blood Pressure 148/68 O2 Sat by Pulse 91 L Oximetry - Reevaluation(s) Reevaluation #1: Medical records reviewed Patient has resolution of symptoms here in the ER Patient informed of results results, questions are answered Patient feels good for discharge home Medical Decision Making - Medical Decision Making 75 female Pawan with bilateral lower extremity edema, concern for CHF also with UTI, patient can be discharged home - Lab Data Result diagrams: 10/23/20 05:24 10/23/20 05:24 Lab Results 10/23/20 10/23/20 10/23/20 Range/Units 05:24 05:24 05:24 WBC 6.8 (3.8-10.6) k/uL RBC 4.54 (3.80-5.40) m/uL Hgb 12.4 (11.4-16.0) gm/dL Hct 38.6 (34.0-46.0) % MCV 85.2 (80.0-100.0) fL MCH 27.4 (25.0-35.0) pg MCHC 32.2 (31.0-37.0) g/dL RDW 14.2 (11.5-15.5) % Plt Count 217 (150-450) k/uL MPV 7.1 Neutrophils % 62 % Lymphocytes % 24 % Monocytes % 6 % Eosinophils % 4 % Basophils % 1 % Neutrophils # 4.2 (1.3-7.7) k/uL Lymphocytes # 1.6 (1.0-4.8) k/uL Monocytes # 0.4 (0-1.0) k/uL Eosinophils # 0.3 (0-0.7) k/uL Basophils # 0.1 (0-0.2) k/uL Hypochromasia Slight PT 9.9 (9.0-12.0) sec INR 1.0 (<1.2) APTT 23.0 (22.0-30.0) sec Sodium (137-145) mmol/L Potassium (3.5-5.1) mmol/L Chloride (98-107) mmol/L Carbon Dioxide (22-30) mmol/L Anion Gap mmol/L BUN (7-17) mg/dL Creatinine (0.52-1.04) mg/dL Est GFR (CKD-EPI)AfAm (>60 ml/min/1.73 sqM) Est GFR (CKD-EPI)NonAf (>60 ml/min/1.73 sqM) Glucose (74-99) mg/dL Calcium (8.4-10.2) mg/dL Phosphorus (2.5-4.5) mg/dL Magnesium (1.6-2.3) mg/dL Total Bilirubin (0.2-1.3) mg/dL AST (14-36) U/L ALT (4-34) U/L Alkaline Phosphatase (38-126) U/L Creatine Kinase (30-135) U/L Troponin I (0.000-0.034) ng/mL NT-Pro-B Natriuret Pep pg/mL Total Protein (6.3-8.2) g/dL Albumin (3.5-5.0) g/dL Urine Color Light Yellow Urine Appearance Clear (Clear) Urine pH 7.0 (5.0-8.0) Ur Specific Pyrites 1.005 (1.001-1.035) Urine Protein Negative (Negative) Urine Glucose (UA) 1+ H (Negative) Urine Ketones Negative (Negative) Urine Blood Negative (Negative) Urine Nitrite Negative (Negative) Urine Bilirubin Negative (Negative) Urine Urobilinogen <2.0 (<2.0) mg/dL Ur Leukocyte Esterase Negative (Negative) 10/23/20 10/23/20 10/23/20 Range/Units 05:24 05:24 05:24 WBC (3.8-10.6) k/uL RBC (3.80-5.40) m/uL Hgb (11.4-16.0) gm/dL Hct (34.0-46.0) % MCV (80.0-100.0) fL MCH (25.0-35.0) pg MCHC (31.0-37.0) g/dL RDW (11.5-15.5) % Plt Count (150-450) k/uL MPV Neutrophils % % Lymphocytes % % Monocytes % % Eosinophils % % Basophils % % Neutrophils # (1.3-7.7) k/uL Lymphocytes # (1.0-4.8) k/uL Monocytes # (0-1.0) k/uL Eosinophils # (0-0.7) k/uL Basophils # (0-0.2) k/uL Hypochromasia PT (9.0-12.0) sec INR (<1.2) APTT (22.0-30.0) sec Sodium 134 L (137-145) mmol/L Potassium 5.0 (3.5-5.1) mmol/L Chloride 99 (98-107) mmol/L Carbon Dioxide 33 H (22-30) mmol/L Anion Gap 2 mmol/L BUN 11 (7-17) mg/dL Creatinine 0.81 (0.52-1.04) mg/dL Est GFR (CKD-EPI)AfAm 82 (>60 ml/min/1.73 sqM) Est GFR (CKD-EPI)NonAf 71 (>60 ml/min/1.73 sqM) Glucose 222 H (74-99) mg/dL Calcium 9.0 (8.4-10.2) mg/dL Phosphorus 3.5 (2.5-4.5) mg/dL Magnesium 1.7 (1.6-2.3) mg/dL Total Bilirubin 0.7 (0.2-1.3) mg/dL AST 22 (14-36) U/L ALT 6 (4-34) U/L Alkaline Phosphatase 51 (38-126) U/L Creatine Kinase 41 (30-135) U/L Troponin I <0.012 (0.000-0.034) ng/mL NT-Pro-B Natriuret Pep 263 pg/mL Total Protein 6.7 (6.3-8.2) g/dL Albumin 3.4 L (3.5-5.0) g/dL Urine Color Urine Appearance (Clear) Urine pH (5.0-8.0) Ur Specific Pyrites (1.001-1.035) Urine Protein (Negative) Urine Glucose (UA) (Negative) Urine Ketones (Negative) Urine Blood (Negative) Urine Nitrite (Negative) Urine Bilirubin (Negative) Urine Urobilinogen (<2.0) mg/dL Ur Leukocyte Esterase (Negative) - EKG Data -: EKG Interpreted by Me (EKG is sinus tach 113 UT 186 QRS 110 QTc 438) - Radiology Data Radiology results: report reviewed (Chest x-rays negative for acute disease), image reviewed Disposition Clinical Impression: Bilateral leg edema Disposition: HOME SELF-CARE Condition: Good Instructions (If sedation given, give patient instructions): Leg Edema (ED) Is patient prescribed a controlled substance at d/c from ED?: No Referrals: Abdirashid Lucero MD [Primary Care Provider] - 1-2 days
[2020-10-23 04:48] VITALS: BP 148/68; PULSE 98; RESP 20; TEMP 98.7
[2020-10-23 05:36] LABS: Basophils # (A) 0.1 k/uL (0-0.2); Basophils % (A) 1 %; Eosinophils # (A) 0.3 k/uL (0-0.7); Eosinophils % (A) 4 %; HCT 38.6 % (34.0-46.0); HGB 12.4 gm/dL (11.4-16.0); Hypochromasia Slight; Lymphocytes # (A) 1.6 k/uL (1.0-4.8); Lymphocytes % (A) 24 %; MCH 27.4 pg (25.0-35.0); MCHC 32.2 g/dL (31.0-37.0); MCV 85.2 fL (80.0-100.0); Mean Platelet Volume 7.1; Monocytes # (A) 0.4 k/uL (0-1.0); Monocytes % (A) 6 %; Neutrophils # (A) 4.2 k/uL (1.3-7.7); Neutrophils % (A) 62 %; Platelet Count 217 k/uL (150-450); RBC 4.54 m/uL (3.80-5.40); RDW 14.2 % (11.5-15.5); WBC 6.8 k/uL (3.8-10.6)
[2020-10-23 05:53] LABS: Albumin 3.4 g/dL (3.5-5.0); Magnesium 1.7 mg/dL (1.6-2.3); Phosphorus 3.5 mg/dL (2.5-4.5); Total Bilirubin 0.7 mg/dL (0.2-1.3); Total Protein 6.7 g/dL (6.3-8.2)
[2020-10-23 05:57] LABS: Prothrombin Time 9.9 sec (9.0-12.0)
[2020-10-23 06:30] LABS: Appearance,Urine Clear (Clear); Bilirubin,Urine Negative (Negative); Blood,Urine Negative (Negative); Color,Urine Light Yellow; Glucose,Urine (UA) 1+ (Negative); Ketones,Urine Negative (Negative); Leukocyte Esterase,Urine Negative (Negative); Nitrite,Urine Negative (Negative); Protein,Urine Negative (Negative); Specific Gravity,Urine 1.005 (1.001-1.035); Urobilinogen,Urine <2.0 mg/dL (<2.0)
--- NOTE | 2020-10-23 06:34 | XR ---
EXAM: XR Chest, 2 Views CLINICAL HISTORY: ITS.REASON XR Reason: Weakness TECHNIQUE: Frontal and lateral views of the chest. COMPARISON: No relevant prior studies available. FINDINGS/IMPRESSION: Elevation of the left hemidiaphragm. Dependent atelectasis. Mild vascular congestion. No pleural effusion or pneumothorax. The heart is enlarged. Right total shoulder arthroplasty. Severe degenerative change of the left shoulder with [id number] articulation.
[2020-10-23] MEDS ORDERED: FUROSEMIDE 10 MG/ML 10 ML VIAL IV STA (06:35)
== END 2020-10-23 07:37 | disposition home or self-care (01) ==
LOC: EC 04:27
DX: R60.0 Localized edema (principal); R06.02 Shortness of breath; J44.9 Chronic obstructive pulmonary disease, unspecified; I11.0 Hypertensive heart disease with heart failure; I50.9 Heart failure, unspecified; H54.8 Legal blindness, as defined in USA; Z79.51 Long term (current) use of inhaled steroids; Z85.528 Personal history of other malignant neoplasm of kidney; Z96.611 Presence of right artificial shoulder joint; Z99.81 Dependence on supplemental oxygen
CPT/HCPCS: 36415; 71046; 80053; 81003; 82550; 83735; 83880; 84100; 84484; 85025; 85610; 85730; 93005; 99284

== ENCOUNTER 2020-12-02 04:28 | Emergency (ER) | payer MEDICARE ==
[2020-12-02 04:35] VITALS: TEMP 98.5
--- NOTE | 2020-12-02 04:42 | ED ---
Fall HPI - General Chief Complaint: Fall Stated Complaint: Fall Time Seen by Provider: 12/02/20 04:39 Source: patient, EMS, RN notes reviewed, old records reviewed Mode of arrival: EMS Limitations: no limitations - History of Present Illness MD Complaint: fall -: hour(s) Fall From: chair (on toilet) When Fall Occurred: 1 hour [employer] Fall Witnessed: yes, by living facility staff Place Fall Occurred: home Loss of Consciousness: none Prolonged Down Time?: no Symptoms Prior to Fall: none Location: head Location - Extremities: Left: Shoulder Severity: mild Quality: aching Context: tripped/slipped Associated Symptoms: headache - Related Data Home Medications Medication Instructions Recorded Confirmed Albuterol Sulfate [Ventolin HFA] 2 puff INHALATION RT-QID PRN 05/13/20 05/13/20 Esomeprazole Magnesium [NexIUM 20 mg PO DAILY 05/13/20 05/13/20 24Hr] Loratadine [Claritin] 10 mg PO DAILY 05/13/20 05/13/20 Pregabalin [Lyrica] 75 mg PO DAILY PRN 05/13/20 05/13/20 Previous Rx's Medication Instructions Recorded Acetaminophen Tab [Tylenol] 650 mg PO Q6HR PRN tab 05/14/20 Apixaban [Eliquis] 5 mg PO BID #60 tab 05/14/20 Aspirin 81 mg PO DAILY #30 chew 05/14/20 Atorvastatin [Lipitor] 40 mg PO DAILY #30 tab 05/14/20 Insulin Detemir (Levemir) [Levemir] 20 - 22 unit SQ DAILY #1 vial 05/14/20 Isosorbide Mononitrate ER [Imdur] 30 mg PO DAILY #30 tab.er.24h 05/14/20 Metoprolol Tartrate [Lopressor] 25 mg PO BID #60 tab 05/14/20 Nitroglycerin Sl Tabs [Nitrostat] 0.4 mg SUBLINGUAL Q5M PRN #20 tab 05/14/20 metFORMIN HCL [Glucophage] 500 mg PO AC-BID #60 tab 05/14/20 Cephalexin [Keflex] 500 mg PO Q6HR 1 Days #28 cap 08/18/20 Allergies Allergy/AdvReac Type Severity Reaction Status Date / Time rofecoxib [From Vioxx] AdvReac Confusion Verified 08/18/20 08:36 Review of Systems ROS Statement: Those systems with pertinent positive or pertinent negative responses have been documented in the HPI. ROS Other: All systems not noted in ROS Statement are negative. Past Medical History Past Medical History: Cancer, Heart Failure, COPD, Diabetes Mellitus, Eye Disorder, Hyperlipidemia, Hypertension, Pneumonia Additional Past Medical History / Comment(s): Kidney cancer post-nephrectomy on the right, IDDM type II, neuropathy bilateral hands/feet, bilateral diabetic retinopathy with legal blindness in the past but vision better since eye injecti ons, recent diagnosis of DVT of the right lower extremity, bronchitis, home oxygen at 6L/[place] ATC, chronic elevation of the left hemidiaphragm, obstructive sleep apnea currently not using device, thoracolumbar kyphoscoliosis, constipation History of Any Multi-Drug Resistant Organisms: None Reported Past Surgical History: Appendectomy, Back Surgery, Hernia Repair, Joint Replacement, Tubal Ligation Additional Past Surgical History / Comment(s): Low back surgery, total R shoulder, R nephrectomy, several abdominal hernia surgeries, colonoscopy Past Anesthesia/Blood Transfusion Reactions: No Reported Reaction Additional Past Anesthesia/Blood Transfusion Reaction / Comment(s): Pt has received blood in past without reaction. Past Psychological History: No Psychological Hx Reported Smoking Status: Never smoker Past Alcohol Use History: None Reported Past Drug Use History: None Reported - Past Family History Mother Family Medical History: Cancer Father Family Medical History: Unable to Obtain Additional Family Medical History / Comment(s): Father when pt was 1 yrs old. General Exam Limitations: no limitations General appearance: alert, in no apparent distress Head exam: Present: atraumatic, normocephalic, normal inspection Eye exam: Present: normal appearance, PERRL, EOMI. Absent: scleral icterus, conjunctival injection, periorbital swelling ENT exam: Present: normal exam, mucous membranes moist Neck exam: Present: normal inspection. Absent: tenderness, meningismus, lymphadenopathy Respiratory exam: Present: normal lung sounds bilaterally. Absent: respiratory distress, wheezes, rales, rhonchi, stridor Cardiovascular Exam: Present: regular rate, normal rhythm, normal heart sounds. Absent: systolic murmur, diastolic murmur, rubs, gallop, clicks GI/Abdominal exam: Present: soft, normal bowel sounds. Absent: distended, tenderness, guarding, rebound, rigid Extremities exam: Present: normal inspection, full ROM, normal capillary refill. Absent: tenderness, pedal edema, joint swelling, calf tenderness Back exam: Present: normal inspection Neurological exam: Present: alert, oriented X3, CN II-XII intact Psychiatric exam: Present: normal affect, normal mood Skin exam: Present: warm, dry, intact, normal color. Absent: rash Course Vital Signs 12/02/20 12/02/20 04:30 05:30 Temperature 98.5 F Pulse Rate 92 86 Respiratory 20 18 Rate Blood Pressure 153/67 141/69 O2 Sat by Pulse 90 L 98 Oximetry Disposition Clinical Impression: Fall, Head injury Disposition: HOME SELF-CARE Condition: Good Instructions (If sedation given, give patient instructions): Fall Prevention for Older Adults (ED), Head Injury (ED) Is patient prescribed a controlled substance at d/c from ED?: No Referrals: Kip Bishop III, MD [Primary Care Provider] - 1-2 days
--- NOTE | 2020-12-02 05:20 | CT ---
EXAM: CT Head Without Intravenous Contrast CLINICAL HISTORY: ITS.REASON CT Reason: fall TECHNIQUE: Axial computed tomography images of the head/brain without intravenous contrast. CTDI is 37.885 mGy and DLP is 879.8 mGy-cm. This CT exam was performed using one or more of the following dose reduction techniques: automated exposure control, adjustment of the mA and/or kV according to patient size, and/or use of iterative reconstruction technique. COMPARISON: CT 08/18/20 FINDINGS: Brain: No hemorrhage. No acute cortical infarct. No midline shift. Involutional changes and small vessel disease. Ventricles: Stable. Bones/joints: No acute fracture. Soft tissues: Unremarkable. Sinuses: Minimal sinus disease. Mastoid air cells: Unremarkable as visualized. IMPRESSION: No acute intracranial process. EXAM: CT Cervical Spine Without Intravenous Contrast CLINICAL HISTORY: ITS.REASON CT Reason: fall TECHNIQUE: Axial computed tomography images of the cervical spine without intravenous contrast. CTDI is 37.885 mGy and DLP is 879.8 mGy-cm. This CT exam was performed using one or more of the following dose reduction techniques: automated exposure control, adjustment of the mA and/or kV according to patient size, and/or use of iterative reconstruction technique. COMPARISON: CT 07/29/20 FINDINGS: Vertebrae: Motion degraded study. No definite acute fracture. Discs/spinal canal/neural foramina: Limited evaluation of the central canal due to artifact. Soft tissues: Unremarkable. Lungs: Nonspecific groundglass densities, more prominent at the right apex. IMPRESSION: Limited study. No definite acute fracture.
--- NOTE | 2020-12-02 05:25 | XR ---
EXAM: XR Chest, 1 View CLINICAL HISTORY: ITS.REASON XR Reason: fall TECHNIQUE: Frontal view of the chest. COMPARISON: 10/23/20. FINDINGS: Lungs: Patchy bilateral lung opacities. Pleural space: Left basilar opacity, may be related to elevated hemidiaphragm with small effusion or consolidation not excluded. Heart: Stable cardiomediastinal silhouette. Mediastinum: See above. Bones/joints: Right shoulder prosthesis. IMPRESSION: Patchy bilateral lung opacities. Correlate clinically regarding inflammatory/infectious process.
--- NOTE | 2020-12-02 05:27 | XR ---
EXAM: XR Left Shoulder, 2 Views CLINICAL HISTORY: ITS.REASON XR Reason: fall TECHNIQUE: Two views of the left shoulder. COMPARISON: No relevant prior studies available. FINDINGS: Bones/joints: Slight irregularity of the left lateral ribs. Degenerative changes at the left shoulder without definite acute fracture. Soft tissues: No radiopaque foreign body. IMPRESSION: Slight irregularity of the left lateral ribs. Correlate with focal tenderness regarding possibility of fracture.
[2020-12-02 06:00] VITALS: BP 141/69; PULSE 86; RESP 18
== END 2020-12-02 06:19 | disposition home or self-care (01) ==
LOC: EC 04:28
DX: S09.90XA Unspecified injury of head, initial encounter (principal); J44.9 Chronic obstructive pulmonary disease, unspecified; I11.0 Hypertensive heart disease with heart failure; I50.9 Heart failure, unspecified; E11.42 Type 2 diabetes mellitus with diabetic polyneuropathy; E11.319 Type 2 diabetes mellitus with unspecified diabetic retinopathy without macular edema; H54.8 Legal blindness, as defined in USA; Z99.81 Dependence on supplemental oxygen; Z79.51 Long term (current) use of inhaled steroids; Z79.4 Long term (current) use of insulin; Z79.899 Other long term (current) drug therapy; Z88.6 Allergy status to analgesic agent; W01.190A Fall on same level from slipping, tripping and stumbling with subsequent striking against furniture, initial encounter; Y92.002 Bathroom of unspecified non-institutional (private) residence as the place of occurrence of the external cause
CPT/HCPCS: 70450; 71045; 72125; 99284

== ENCOUNTER 2020-12-14 09:21 | Emergency (ER) | payer MEDICARE ==
[2020-12-14 09:27] VITALS: TEMP 98.8
--- NOTE | 2020-12-14 09:51 | ED ---
General Adult HPI - General Chief complaint: Wound/Laceration Stated complaint: diabetic/leg discoloration Time Seen by Provider: 12/14/20 09:28 Source: patient, RN notes reviewed Mode of arrival: ambulatory Limitations: no limitations - History of Present Illness Initial comments: Patient is a 75-year-old female that presented emergency department complaining of bilateral foot swelling and skin changes. She noted that one of her relatives a dermatology he was telling her about some skin changes to her bilateral feet, her relative told her to come to the ER to get evaluated. Patient does have a history of diabetes and neuropathy. Patient was sitting in her power wheelchair in no apparent distress or pain. She did note that she is prescribed cream/lotion to apply to her skin for dryness. She denied owning any compression stockings, but is totally members that she needs some. She denied any pain, increase in numbness or tingling, chest pain, shortness of breath, weakness, fever, fatigue, chills, night sweats - Related Data Home Medications Medication Instructions Recorded Confirmed Albuterol Sulfate [Ventolin HFA] 2 puff INHALATION RT-QID PRN 05/13/20 05/13/20 Esomeprazole Magnesium [NexIUM 20 mg PO DAILY 05/13/20 05/13/20 24Hr] Loratadine [Claritin] 10 mg PO DAILY 05/13/20 05/13/20 Pregabalin [Lyrica] 75 mg PO DAILY PRN 05/13/20 05/13/20 Previous Rx's Medication Instructions Recorded Acetaminophen Tab [Tylenol] 650 mg PO Q6HR PRN tab 05/14/20 Apixaban [Eliquis] 5 mg PO BID #60 tab 05/14/20 Aspirin 81 mg PO DAILY #30 chew 05/14/20 Atorvastatin [Lipitor] 40 mg PO DAILY #30 tab 05/14/20 Insulin Detemir (Levemir) [Levemir] 20 - 22 unit SQ DAILY #1 vial 05/14/20 Isosorbide Mononitrate ER [Imdur] 30 mg PO DAILY #30 tab.er.24h 05/14/20 Metoprolol Tartrate [Lopressor] 25 mg PO BID #60 tab 05/14/20 Nitroglycerin Sl Tabs [Nitrostat] 0.4 mg SUBLINGUAL Q5M PRN #20 tab 05/14/20 metFORMIN HCL [Glucophage] 500 mg PO AC-BID #60 tab 05/14/20 Cephalexin [Keflex] 500 mg PO Q6HR 1 Days #28 cap 08/18/20 Allergies Allergy/AdvReac Type Severity Reaction Status Date / Time rofecoxib [From Vioxx] AdvReac Confusion Verified 12/14/20 09:22 Review of Systems ROS Statement: Those systems with pertinent positive or pertinent negative responses have been documented in the HPI. ROS Other: All systems not noted in ROS Statement are negative. Past Medical History Past Medical History: Cancer, Heart Failure, COPD, Diabetes Mellitus, Eye Disorder, Hyperlipidemia, Hypertension, Pneumonia Additional Past Medical History / Comment(s): Kidney cancer post-nephrectomy on the right, IDDM type II, neuropathy bilateral hands/feet, bilateral diabetic retinopathy with legal blindness in the past but vision better since eye injections, recent diagnosis of DVT of the right lower extremity, bronchitis, home oxygen at 6L/[place] ATC, chronic elevation of the left hemidiaphragm, obs tructive sleep apnea currently not using device, thoracolumbar kyphoscoliosis, constipation History of Any Multi-Drug Resistant Organisms: None Reported Past Surgical History: Appendectomy, Back Surgery, Hernia Repair, Joint Replacement, Tubal Ligation Additional Past Surgical History / Comment(s): Low back surgery, total R shoulder, R nephrectomy, several abdominal hernia surgeries, colonoscopy Past Anesthesia/Blood Transfusion Reactions: No Reported Reaction Additional Past Anesthesia/Blood Transfusion Reaction / Comment(s): Pt has received blood in past without reaction. Past Psychological History: No Psychological Hx Reported Smoking Status: Never smoker Past Alcohol Use History: None Reported Past Drug Use History: None Reported - Past Family History Mother Family Medical History: Cancer Father Family Medical History: Unable to Obtain Additional Family Medical History / Comment(s): Father when pt was 1 yrs old. General Exam Limitations: no limitations General appearance: alert, in no apparent distress, obese, other Head exam: Present: atraumatic, normocephalic, normal inspection Eye exam: Present: normal appearance, PERRL, EOMI. Absent: scleral icterus, conjunctival injection, periorbital swelling ENT exam: Present: normal exam, mucous membranes moist Neck exam: Present: normal inspection. Absent: tenderness, meningismus, lymphadenopathy Respiratory exam: Present: normal lung sounds bilaterally. Absent: respiratory distress, wheezes, rales, rhonchi, stridor Cardiovascular Exam: Present: regular rate, normal rhythm, normal heart sounds, other (Pedal pulses 2+). Absent: systolic murmur, diastolic murmur, rubs, gallop, clicks Extremities exam: Present: normal inspection, full ROM, normal capillary refill, pedal edema (2+ bilateral), other (Bilateral lower extremity edema up to knees, 2+). Absent: tenderness, joint swelling, calf tenderness Neurological exam: Present: alert, oriented X3, CN II-XII intact, other (Sensation in bilateral feet to light touch intact) Psychiatric exam: Present: normal affect, normal mood Skin exam: Present: warm, dry, intact, other (Dry, scaly.). Absent: normal color (Darkening of bilateral feet), rash Course Vital Signs 12/14/20 09:23 Temperature 98.8 F Pulse Rate 67 Respiratory 18 Rate Blood Pressure 162/78 O2 Sat by Pulse 100 Oximetry Medical Decision Making - Medical Decision Making 75-year-old female complaining of bilateral feet swelling and skin changes. Ordered bilateral lower extremity venous Dopplers to check for adequate blood flow, due to history of diabetes and sedentary lifestyle that could potentially cause venous-stasis. Case discussed with Dr. Hay. - Radiology Data Radiology results: report reviewed, image reviewed No evidence of DVT in bilateral lower extremities. Disposition Clinical Impression: Stasis dermatitis of both legs Disposition: HOME SELF-CARE Condition: Stable Additional Instructions: Please return to the Emergency Department if symptoms worsen or any other concerns. Wear compression stockings all day, take off at night to sleep. Exercise lower extremities doing OR walking as tolerated. To promote venous return. Follow-up with primary care 1-2 days. Is patient prescribed a controlled substance at d/c from ED?: No Referrals: Kip Bishop III, MD [Primary Care Provider] - 1-2 days Decision Time: 11:20
--- NOTE | 2020-12-14 10:37 | US ---
EXAMINATION TYPE: US venous doppler duplex LE DATE OF EXAM: 12/14/2020 10:26 AM COMPARISON: CLINICAL HISTORY: Lower extremity swelling. Patient is on blood thinners. Leg pain. Diabetic. Leg discoloration. SIDE PERFORMED: Bilateral TECHNIQUE: The lower extremity deep venous system is examined utilizing real time linear array sonog ian with graded compression, doppler sonography and color-flow sonography. VESSELS IMAGED: Common Femoral Vein Deep Femoral Vein Greater Saphenous Vein * Femoral Vein Popliteal Vein Small Saphenous Vein * Proximal Calf Veins- unable to visualized (* superficial vessels) extremely limited visualization due to patient body habitus Right Leg: Negative for DVT Left Leg: Negative for DVT IMPRESSION: No evidence for DVT at this time.
[2020-12-14 11:42] VITALS: BP 148/89; PULSE 65; RESP 20
== END 2020-12-14 11:42 | disposition home or self-care (01) ==
LOC: EC 09:21
DX: I87.2 Venous insufficiency (chronic) (peripheral) (principal); E11.40 Type 2 diabetes mellitus with diabetic neuropathy, unspecified; J44.9 Chronic obstructive pulmonary disease, unspecified; H54.8 Legal blindness, as defined in USA; I10 Essential (primary) hypertension; Z79.899 Other long term (current) drug therapy; Z88.8 Allergy status to other drugs, medicaments and biological substances; Z85.528 Personal history of other malignant neoplasm of kidney; Z90.49 Acquired absence of other specified parts of digestive tract; Z90.5 Acquired absence of kidney; Z96.611 Presence of right artificial shoulder joint
CPT/HCPCS: 93970; 99283

== ENCOUNTER → 2021-02-08 | Outpatient (CLI) | payer MEDICARE ==
--- NOTE | 2021-02-08 11:50 | US ---
EXAMINATION TYPE: US transvaginal DATE OF EXAM: 02/08/2021 COMPARISON: NONE CLINICAL HISTORY: 76-year-old female N95.0 Post menopausal bleeding. TECHNIQUE: Transvaginal (TV). Date of LMP: RN CHRONIC, FINDINGS: Electronic Transaction Implementer notes: Patient has limited mobility. EXAM MEASUREMENTS: Uterus: 6.2 x 4.1 x 3.4 cm Endometrial Stripe: 0.3 cm 1. Uterus: Anteverted Heterogenous. Round lesion along the anterior fundus measuring 1.7 x 1.6 cm. Appears small in size. 2. Endometrium: Echogenic lesion centrally at the level of the lower uterine segment shows some vasc ularity and measures 0.6 x 0.5 x 0.5 cm 3. Right Ovary: Obscured by overlying bowel gas 4. Left Ovary: Obscured by overlying bowel gas 5. Bilateral Adnexa: wnl 6. Posterior cul-de-sac: no free fluid IMPRESSION: 1. Neither ovary could be visualized. 2. An echogenic lesion centrally along the lower uterine segment shows some vascularity and measures 6 mm. Given patient's symptoms, consider further evaluation with hysterosonography or direct visualiz ation. A polyp is favored but other endometrial lesion is possible. The remainder of the ureteral str ipe measures 3 mm. 3. A 1.7 cm intramural fibroid along the anterior uterine fundus.
== END | disposition home or self-care (01) ==
LOC: RADUSWWP 10:22
PROVIDERS: ATTEND Obstetrics & Gynecology
DX: D25.1 Intramural leiomyoma of uterus (principal)
CPT/HCPCS: 76830

== ENCOUNTER 2021-03-28 14:36 | Observation (INO) | payer MEDICARE ==
[2021-03-28 15:26] LABS: Appearance,Urine Clear (Clear); Basophils # (A) 0.1 k/uL (0-0.2); Basophils % (A) 1 %; Bilirubin,Urine Negative (Negative); Blood,Urine Negative (Negative); Color,Urine Yellow; Eosinophils # (A) 0.3 k/uL (0-0.7); Eosinophils % (A) 5 %; Glucose,Urine (UA) 4+ (Negative); HCT 38.8 % (34.0-46.0); HGB 12.4 gm/dL (11.4-16.0); Hypochromasia Slight; Ketones,Urine Negative (Negative); Leukocyte Esterase,Urine Negative (Negative); Lymphocytes # (A) 2.3 k/uL (1.0-4.8); Lymphocytes % (A) 32 %; MCV 87.5 fL (80.0-100.0); Mean Platelet Volume 6.6; Monocytes # (A) 0.4 k/uL (0-1.0); Monocytes % (A) 6 %; Neutrophils % (A) 55 %; Nitrite,Urine Negative (Negative); PH, Urine 5.5 (5.0-8.0); Platelet Count 211 k/uL (150-450); Protein,Urine Trace (Negative); RBC 4.44 m/uL (3.80-5.40); RDW 14.8 % (11.5-15.5); Specific Gravity,Urine 1.024 (1.001-1.035); Urobilinogen,Urine <2.0 mg/dL (<2.0); WBC 7.3 k/uL (3.8-10.6)
--- NOTE | 2021-03-28 15:26 | ED ---
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 Patient lives in front end assistant living facility and was found in the floor requesting help. Patient reports she was confused when the ambulance was there but is not feeling better. Per EMS report, the patient's daughter visited the patient yesterday and she appeared to be confused Wesley usual. Patient reports she has not been able to make it to her primary care physician and has not taken her Lasix in about 3 weeks. She reports exertional dyspnea but denies any chest pain. She also reports some obstructive urinary symptoms for the last week but denies any abdominal pain. She denies any fevers chills. Patient alert and oriented 3 at this time. - Related Data Home Medications Medication Instructions Recorded Confirmed Atorvastatin [Lipitor] 20 mg PO DAILY 03/28/21 03/28/21 Furosemide [Lasix] 40 mg PO DAILY 03/28/21 03/28/21 Insulin Detemir (Levemir) [Levemir] 27 unit SQ BID 03/28/21 03/28/21 Potassium Chloride ER [K-Dur 20] 20 meq PO DAILY 03/28/21 03/28/21 Previous Rx's Medication Instructions Recorded metFORMIN HCL [Glucophage] 500 mg PO AC-BID #60 tab 05/14/20 Allergies Allergy/AdvReac Type Severity Reaction Status Date / Time rofecoxib [From Vioxx] AdvReac Confusion Verified 03/28/21 16:10 Review of Systems ROS Statement: Those systems with pertinent positive or pertinent negative responses have been documented in the HPI. ROS Other: All systems not noted in ROS Statement are negative. Past Medical History Past Medical History: Cancer, Heart Failure, COPD, Diabetes Mellitus, Eye Disorder, Hyperlipidemia, Hypertension, Pneumonia Additional Past Medical History / Comment(s): Kidney cancer post-nephrectomy on the right, IDDM type II, neuropathy bilateral hands/feet, bilateral diabetic retinopathy with legal blindness in the past but vision better since eye injections, recent diagnosis of DVT of the right lower extremity, bronchitis, home oxygen at 6L/NC ATC, chronic elevation of the left hemidiaphragm, obstructive sleep apnea currently not using device, thoracolumbar kyphoscoliosis, constipation History of Any Multi-Drug Resistant Organisms: None Reported Past Surgical History: Appendectomy, Back Surgery, Hernia Repair, Joint Replacement, Tubal Ligation Additional Past Surgical History / Comment(s): Low back surgery, total R shoulder, R nephrectomy, several abdominal hernia surgeries, colonoscopy Past Anesthesia/Blood Transfusion Reactions: No Reported Reaction Additional Past Anesthesia/Blood Transfusion Reaction / Comment(s): Pt has received blood in past without reaction. Past Psychological History: No Psychological Hx Reported Smoking Status: Never smoker Past Alcohol Use History: None Reported Past Drug Use History: None Reported - Past Family History Mother Family Medical History: Cancer Father Family Medical History: Unable to Obtain Additional Family Medical History / Comment(s): Father when pt was 1 yrs old. General Exam Limitations: physical limitation General appearance: alert, in no apparent distress, obese Head exam: Present: atraumatic, normocephalic, normal inspection Eye exam: Present: normal appearance, PERRL, EOMI Pupils: Present: normal accommodation ENT exam: Present: normal exam, normal oropharynx, mucous membranes dry, TM's normal bilaterally, normal external ear exam Neck exam: Present: normal inspection, full ROM. Absent: tenderness, lymphadenopathy Respiratory exam: Present: wheezes (Mild, diffuse bilateral wheezing). Absent: respiratory distress, rales, rhonchi, stridor, chest wall tenderness, accessory muscle use Cardiovascular Exam: Present: regular rate, normal rhythm, normal heart sounds GI/Abdominal exam: Present: soft. Absent: distended, tenderness, guarding, rebound Extremities exam: Present: normal inspection, full ROM, normal capillary refill, pedal edema (+2 pitting edema bilaterally), other (Palpable DP and PT bilaterally). Absent: tenderness, joint swelling Back exam: Present: normal inspection, full ROM. 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 On physical examination, patient appears to be short of breath with mild, diffuse wheezing bilaterally. Patient was given a breathing treatment in the emergency department With some improvement in symptoms. Patient continues to be short of breath, however her oxygen saturation is well above 95% on 3 L. she also has +2 pitting bilaterally. CBC, CMP unremarkable. Coags within normal limits. Initial troponins are negative. BNP is 700. Chest x-ray reveals no signs of pleural effusion but there is guest services assistant mary appearing atelectasis. She was Covid negative. Patient was given 40 mg of IV Lasix. Patient is not able to self administer or obtain her Lasix due to living alone and being comorbid. Patient will be admitted due to her increased work of breathing and diureses. I spoke with who will admit. Case discussed with Cardiology on consult precast worker consult - Lab Data Result diagrams: 03/28/21 15:17 03/28/21 15:35 Lab Results 03/28/21 03/28/21 03/28/21 Range/Units 15:17 15:17 15:17 WBC 7.3 (3.8-10.6) k/uL RBC 4.44 (3.80-5.40) m/uL Hgb 12.4 (11.4-16.0) gm/dL Hct 38.8 (34.0-46.0) % MCV 87.5 (80.0-100.0) fL MCH 28.0 (25.0-35.0) pg MCHC 32.0 (31.0-37.0) g/dL RDW 14.8 (11.5-15.5) % Plt Count 211 (150-450) k/uL MPV 6.6 Neutrophils % 55 % Lymphocytes % 32 % Monocytes % 6 % Eosinophils % 5 % Basophils % 1 % Neutrophils # 4.0 (1.3-7.7) k/uL Lymphocytes # 2.3 (1.0-4.8) k/uL Monocytes # 0.4 (0-1.0) k/uL Eosinophils # 0.3 (0-0.7) k/uL Basophils # 0.1 (0-0.2) k/uL Hypochromasia Slight PT 10.3 (9.0-12.0) sec INR 1.0 (<1.2) APTT 18.5 L (22.0-30.0) sec Sodium (137-145) mmol/L Potassium (3.5-5.1) mmol/L Chloride (98-107) mmol/L Carbon Dioxide (22-30) mmol/L Anion Gap mmol/L BUN (7-17) mg/dL Creatinine (0.52-1.04) mg/dL Est GFR (CKD-EPI)AfAm (>60 ml/min/1.73 sqM) Est GFR (CKD-EPI)NonAf (>60 ml/min/1.73 sqM) Glucose (74-99) mg/dL POC Glucose (mg/dL) (75-99) mg/dL POC Glu Poultry Pathologist ID Calcium (8.4-10.2) mg/dL Total Bilirubin (0.2-1.3) mg/dL AST (14-36) U/L ALT (4-34) U/L Alkaline Phosphatase (38-126) U/L Troponin I (0.000-0.034) ng/mL NT-Pro-B Natriuret Pep pg/mL Total Protein (6.3-8.2) g/dL Albumin (3.5-5.0) g/dL Urine Color Yellow Urine Appearance Clear (Clear) Urine pH 5.5 (5.0-8.0) Ur Specific [place] 1.024 (1.001-1.035) Urine Protein Trace H (Negative) Urine Glucose (UA) 4+ H (Negative) Urine Ketones Negative (Negative) Urine Blood Negative (Negative) Urine Nitrite Negative (Negative) Urine Bilirubin Negative (Negative) Urine Urobilinogen <2.0 (<2.0) mg/dL Ur Leukocyte Esterase Negative (Negative) Coronavirus (PCR) (Not Detectd) 03/28/21 03/28/21 03/28/21 Range/Units 15:17 15:17 15:35 WBC (3.8-10.6) k/uL RBC (3.80-5.40) m/uL Hgb (11.4-16.0) gm/dL Hct (34.0-46.0) % MCV (80.0-100.0) fL MCH (25.0-35.0) pg MCHC (31.0-37.0) g/dL RDW (11.5-15.5) % Plt Count (150-450) k/uL MPV Neutrophils % % Lymphocytes % % Monocytes % % Eosinophils % % Basophils % % Neutrophils # (1.3-7.7) k/uL Lymphocytes # (1.0-4.8) k/uL Monocytes # (0-1.0) k/uL Eosinophils # (0-0.7) k/uL Basophils # (0-0.2) k/uL Hypochromasia PT (9.0-12.0) sec INR (<1.2) APTT (22.0-30.0) sec Sodium 140 (137-145) mmol/L Potassium 4.0 (3.5-5.1) mmol/L Chloride 105 (98-107) mmol/L Carbon Dioxide 33 H (22-30) mmol/L Anion Gap 2 mmol/L BUN 11 (7-17) mg/dL Creatinine 0.88 (0.52-1.04) mg/dL Est GFR (CKD-EPI)AfAm 74 (>60 ml/min/1.73 sqM) Est GFR (CKD-EPI)NonAf 64 (>60 ml/min/1.73 sqM) Glucose 191 H (74-99) mg/dL POC Glucose (mg/dL) (75-99) mg/dL POC Glu Poultry Pathologist ID Calcium 9.1 (8.4-10.2) mg/dL Total Bilirubin 0.6 (0.2-1.3) mg/dL AST 14 (14-36) U/L ALT 6 (4-34) U/L Alkaline Phosphatase 55 (38-126) U/L Troponin I <0.012 (0.000-0.034) ng/mL NT-Pro-B Natriuret Pep 695 pg/mL Total Protein 6.3 (6.3-8.2) g/dL Albumin 3.4 L (3.5-5.0) g/dL Urine Color Urine Appearance (Clear) Urine pH (5.0-8.0) Ur Specific [place] (1.001-1.035) Urine Protein (Negative) Urine Glucose (UA) (Negative) Urine Ketones (Negative) Urine Blood (Negative) Urine Nitrite (Negative) Urine Bilirubin (Negative) Urine Urobilinogen (<2.0) mg/dL Ur Leukocyte Esterase (Negative) Coronavirus (PCR) (Not Detectd) 03/28/21 03/28/21 Range/Units 15:56 17:44 WBC (3.8-10.6) k/uL RBC (3.80-5.40) m/uL Hgb (11.4-16.0) gm/dL Hct (34.0-46.0) % MCV (80.0-100.0) fL MCH (25.0-35.0) pg MCHC (31.0-37.0) g/dL RDW (11.5-15.5) % Plt Count (150-450) k/uL MPV Neutrophils % % Lymphocytes % % Monocytes % % Eosinophils % % Basophils % % Neutrophils # (1.3-7.7) k/uL Lymphocytes # (1.0-4.8) k/uL Monocytes # (0-1.0) k/uL Eosinophils # (0-0.7) k/uL Basophils # (0-0.2) k/uL Hypochromasia PT (9.0-12.0) sec INR (<1.2) APTT (22.0-30.0) sec Sodium (137-145) mmol/L Potassium (3.5-5.1) mmol/L Chloride (98-107) mmol/L Carbon Dioxide (22-30) mmol/L Anion Gap mmol/L BUN (7-17) mg/dL Creatinine (0.52-1.04) mg/dL Est GFR (CKD-EPI)AfAm (>60 ml/min/1.73 sqM) Est GFR (CKD-EPI)NonAf (>60 ml/min/1.73 sqM) Glucose (74-99) mg/dL POC Glucose (mg/dL) 174 H (75-99) mg/dL POC Glu Poultry Pathologist ID Svacha, II, Reji Calcium (8.4-10.2) mg/dL Total Bilirubin (0.2-1.3) mg/dL AST (14-36) U/L ALT (4-34) U/L Alkaline Phosphatase (38-126) U/L Troponin I (0.000-0.034) ng/mL NT-Pro-B Natriuret Pep pg/mL Total Protein (6.3-8.2) g/dL Albumin (3.5-5.0) g/dL Urine Color Urine Appearance (Clear) Urine pH (5.0-8.0) Ur Specific [place] (1.001-1.035) Urine Protein (Negative) Urine Glucose (UA) (Negative) Urine Ketones (Negative) Urine Blood (Negative) Urine Nitrite (Negative) Urine Bilirubin (Negative) Urine Urobilinogen (<2.0) mg/dL Ur Leukocyte Esterase (Negative) Coronavirus (PCR) Not Detected (Not Detectd) Disposition Clinical Impression: Weakness, Bilateral lower extremity edema, Dyspnea Disposition: ADMITTED IP TO THIS HOSP Condition: Fair Is patient prescribed a controlled substance at d/c from ED?: No Time of Disposition: 17:34
[2021-03-28 15:42] LABS: Prothrombin Time 10.3 sec (9.0-12.0)
[2021-03-28 15:53] LABS: Partial Thromboplastin Time 18.5 sec (22.0-30.0)
[2021-03-28 15:58] LABS: Glucose,Whole Blood 174 mg/dL (75-99)
[2021-03-28 16:10] LABS: Albumin 3.4 g/dL (3.5-5.0); Calcium 9.1 mg/dL (8.4-10.2); Total Bilirubin 0.6 mg/dL (0.2-1.3); Total Protein 6.3 g/dL (6.3-8.2)
--- NOTE | 2021-03-28 16:11 | XR ---
EXAMINATION TYPE: XR chest 2V DATE OF EXAM: 03/28/2021 COMPARISON: 12/02/2020 HISTORY: Weakness TECHNIQUE: 2 views FINDINGS: There is poor inspiration. There is coarse pulmonary interstitial density. There is no defi nite heart failure. There is atelectasis at the left lung base with mild elevation of the diaphragm. The bony thorax is intact. There is right shoulder prosthesis. There is significant arthritic disease in the left shoulder joint. IMPRESSION: Mild pulmonary fibrosis. Chronic atelectasis at the left lung base without change. No obv ious heart failure.
--- NOTE | 2021-03-28 17:23 | CT ---
EXAMINATION TYPE: CT brain wo con DATE OF EXAM: 03/28/2021 COMPARISON: 12/02/2020 HISTORY: increasing confusion CT DLP: 1098.4 mGycm Automated exposure control for dose reduction was used. There is cerebral cortical atrophy. There is no mass effect nor midline shift. There is no sign of in tracranial hemorrhage. The calvarium is intact. There is no evidence of cerebral edema. The skull bas e is intact. IMPRESSION: Mild cerebral atrophy. No acute intracranial abnormality. No change compared to old exam.
[2021-03-28] MEDS ORDERED: IPRATROPIUM-ALBUTEROL 3 ML NEB INHALATION STA (18:08)
[2021-03-28] MEDS ORDERED: FUROSEMIDE 10 MG/ML 4 ML VIAL IV STA (18:09)
[2021-03-28] MEDS ORDERED: LORazepam 2 MG/ML INJ IV PRN (18:13)
[2021-03-28] MEDS ORDERED: ONDANSETRON 4 MG/2 ML VIAL IVP PRN (18:13)
[2021-03-28] MEDS ORDERED: NALOXONE 0.4 MG/ML 1 ML VIAL IV PRN (18:13)
[2021-03-28] MEDS ORDERED: SODIUM CHLORIDE 0.9% 1,000 ML IV SCH (18:15)
[2021-03-28 20:33] LABS: Glucose,Whole Blood 245 mg/dL (75-99)
[2021-03-28] MEDS ORDERED: INSULIN DETEMIR (LEVEMIR) 100 UNIT/ML SYR SQ SCH (21:00)
[2021-03-28] MEDS: DOCUSATE 100 MG CAP PO SCH (22:12)
[2021-03-28] MEDS: INSULIN ASPART (NovoLOG) 100 UNIT/ML VIAL SQ SCH (22:12)
[2021-03-28] MEDS: ATORVASTATIN 20 MG TAB PO SCH (22:12)
[2021-03-28] MEDS: POTASSIUM CHLORIDE ER 20 MEQ TAB.ER PO SCH (22:12)
[2021-03-29 02:34] VITALS: RESP 17
[2021-03-29 06:47] LABS: Glucose,Whole Blood 79 mg/dL (75-99)
[2021-03-29 07:14] VITALS: BP 105/65; PULSE 95; TEMP 98.4
[2021-03-29] MEDS: INSULIN ASPART (NovoLOG) 100 UNIT/ML VIAL SQ SCH ×2 (07:22→12:27)
[2021-03-29] MEDS: POTASSIUM CHLORIDE ER 20 MEQ TAB.ER PO SCH (07:51)
[2021-03-29] MEDS: DOCUSATE 100 MG CAP PO SCH (07:51)
[2021-03-29] MEDS: ATORVASTATIN 20 MG TAB PO SCH (07:51)
[2021-03-29] MEDS ORDERED: FUROSEMIDE 10 MG/ML 4 ML VIAL IV SCH (09:00)
[2021-03-29] MEDS ORDERED: metOLazone 2.5 MG TAB PO SCH (09:15)
[2021-03-29] MEDS ORDERED: FUROSEMIDE 40 MG TAB PO SCH (09:15)
[2021-03-29 11:55] LABS: Glucose,Whole Blood 160 mg/dL (75-99)
[2021-03-29] MEDS ORDERED: polyethylene glycoL 3350 17 GM POWD.PACK PO SCH (12:20)
--- NOTE | 2021-03-29 12:40 | P.CRDCN ---
History of Present Illness History of present illness: HISTORY OF PRESENTING ILLNESS This is a pleasant 75-year-old female past medical history significant for COPD on home oxygen, diabetes mellitus, kidney cancer status post right nephrectomy and history of DVT maintained on long-term anticoagulation. She denies prior history of coronary artery disease and does not follow in the office with a taping supervisor. We have been asked to see in consultation for increased bilateral lower extremity edema and possible congestive heart failure. Patient presents emergency department with worsening weakness, dyspnea on exertion and lower extremity swelling. Per EMS report, the patient's daughter visited the patient yesterday and she appeared to be confused Wesley usual. Patient reports she has not been able to make it to her primary care physician and has not taken her Lasix in about 3 weeks. Patient has been refusing IV Lasix due to not wanting a PIV inserted and requesting to be discharged. Patient states she does follow with a clerk travel reservations outpatient. EKG revealed sinus rhythm, heart rate 98, right bundle branch block.Laboratory data reviewed, CBC unremarkable, sodium 140, potassium 4.0, serum creatinine 0.88, BNP 695, troponin negative 1, COVID-19 negative Vital signs 105/65, heart rate 95, afebrile, maintaining oxygen saturation is 95% on room air DIAGNOSTICS Most recent echocardiogram 05/2020EF between 55-60%, paradoxical/dyskinetic septal motion consistent with right ventricular volume overload and/or elevated right ventricular end-diastolic pressure, mild aortic regurgitation, mild mitral regurgitation, mild to moderate mitral stenosis, mild pulmonary hypertension, RVSP is 42 mmHg. Chest xray mild pulmonary fibrosis, chronic atelectasis at the left lung base, heart size is stable. No obvious heart failure. Current home cardiac medications include Lasix 40 mg daily, atorvastatin 20 mg daily, potassium chloride 20 mEq daily REVIEW OF SYSTEMS At the time of my exam: CONSTITUTIONAL: Denies fever or chills. CARDIOVASCULAR: +MARINO, Denies chest pain, orthopnea, PND or palpitations. RESPIRATORY: Denies cough. GASTROINTESTINAL: Denies abdominal pain, diarrhea, constipation, nausea or vomiting. MUSCULOSKELETAL: +Weakness Denies myalgias. NEUROLOGIC: Denies numbness, tingling, headacbe or weakness. ENDOCRINE: Denies fatigue, weight change, polydipsia or polyurina. GENITOURINARY: Denies burning, hematuria or urgency with micturation. HEMATOLOGIC: Denies history of anemia or bleeding. PHYSICAL EXAMINATION CONSTITUTIONAL: No apparent distress. HEENT: Head is normocephalic. Pupils are equal, round. Sclerae anicteric. Mucous membranes of the mouth are moist. No JVD. No carotid bruit. CHEST EXAMINATION: Lungs mild rales bilaterally. No chest wall tenderness is noted on palpation or with deep breathing. HEART EXAMINATION: Regular rate and rhythm. S1, S2 heard. No murmurs, gallops or rub. ABDOMEN: Soft, nontender. Positive bowel sounds. EXTREMITIES: 2+ peripheral pulses, +non-pitting bilateral lower extremity edema and no calf tenderness. NEUROLOGIC EXAMINATION: Patient is awake, alert and oriented x3. ASSESSMENT Lower extremity edema - likely due to non-compliance with PO lasix Pulmonary hypertension Pulmonary fibrosis Diabetes mellitus COPD on home oxygen Kidney cancer s/p right nephrectomy Morbid obesity, BMI 52 PLAN -Dyspnea exertion likely related to pulmonary component. Patient does not appear to be in heart failure. -We will obtain a 2D echocardiogram -Will switch to PO Lasix 40mg daily and metolazone 2.5mg daily -Recommend pulmonology consult for further managment of pulmonary hypertension and pulmonary fibrosis -From cardiology perspective, if not acute findings on echocardiogram, we will follow the patient as needed -Patient can follow up as an outpatient. Nurse Practitioner note has been reviewed, I agree with a documented findings and plan of care. Patient was seen and examined. Past Medical History Past Medical History: Cancer, Heart Failure, COPD, Diabetes Mellitus, Eye Disorder, Hyperlipidemia, Hypertension, Pneumonia Additional Past Medical History / Comment(s): Kidney cancer post-nephrectomy on the right, IDDM type II, neuropathy bilateral hands/feet, bilateral diabetic retinopathy with legal blindness in the past but vision better since eye injections, recent diagnosis of DVT of the right lower extremity, bronchitis, home oxygen at 6L/[place] ATC, chronic elevation of the left hemidiaphragm, obstructive sleep apnea currently not using device, thoracolumbar k yphoscoliosis, constipation History of Any Multi-Drug Resistant Organisms: None Reported Past Surgical History: Appendectomy, Back Surgery, Hernia Repair, Joint Replacement, Tubal Ligation Additional Past Surgical History / Comment(s): Low back surgery, total R shoulder, R nephrectomy, several abdominal hernia surgeries, colonoscopy Past Anesthesia/Blood Transfusion Reactions: No Reported Reaction Additional Past Anesthesia/Blood Transfusion Reaction / Comment(s): Pt has received blood in past without reaction. Past Psychological History: No Psychological Hx Reported Additional Psychological History / Comment(s): Pt resides in an apartment at [facility]. She has home oxygen at 6L/NC ATC. She manages her own med ications. She uses a walker or scooter. She gets places by [facility] bus. Smoking Status: Never smoker Past Alcohol Use History: None Reported Past Drug Use History: None Reported - Past Family History Mother Family Medical History: Cancer Father Family Medical History: Unable to Obtain Additional Family Medical History / Comment(s): Father when pt was 1 yrs old. Medications and Allergies Home Medications Medication Instructions Recorded Confirmed Type metFORMIN HCL [Glucophage] 500 mg PO AC-BID #60 tab 05/14/20 03/28/21 Rx Atorvastatin [Lipitor] 20 mg PO DAILY 03/28/21 03/28/21 History Furosemide [Lasix] 40 mg PO DAILY 03/28/21 03/28/21 History Insulin Detemir (Levemir) [Levemir] 27 unit SQ BID 03/28/21 03/28/21 History Potassium Chloride ER [K-Dur 20] 20 meq PO DAILY 03/28/21 03/28/21 History polyethylene glycoL 3350 [Miralax] 17 gm PO DAILY PRN #15 packet 03/29/21 Rx Allergies Allergy/AdvReac Type Severity Reaction Status Date / Time rofecoxib [From Vioxx] AdvReac Confusion Verified 03/28/21 16:10 Physical Exam Vitals: Vital Signs Temp Pulse Pulse Resp BP BP Pulse Ox 03/29/21 07:11 98.4 F 95 17 105/65 95 03/29/21 00:50 97.7 F 93 17 113/65 95 03/28/21 20:00 109 H 15 03/28/21 19:31 98.4 F 109 H 15 166/89 97 03/28/21 19:15 90 03/28/21 19:01 88 03/28/21 18:15 84 18 148/92 99 03/28/21 15:54 91 18 156/85 100 03/28/21 14:39 98.5 F 94 20 135/110 93 L Intake and Output 03/28/21 03/29/21 03/29/21 22:59 06:59 14:59 Other: Voiding Method Bedside Commode Bedside Commode # Voids 1 Weight 113.398 kg Results 03/28/21 15:17 03/28/21 15:35 Cardiac Enzymes 03/28/21 03/28/21 Range/Units 15:17 15:35 AST 14 (14-36) U/L Troponin I <0.012 (0.000-0.034) ng/mL Coagulation 03/28/21 Range/Units 15:17 PT 10.3 (9.0-12.0) sec APTT 18.5 L (22.0-30.0) sec CBC 03/28/21 Range/Units 15:17 WBC 7.3 (3.8-10.6) k/uL RBC 4.44 (3.80-5.40) m/uL Hgb 12.4 (11.4-16.0) gm/dL Hct 38.8 (34.0-46.0) % Plt Count 211 (150-450) k/uL Comprehensive Metabolic Panel 03/28/21 Range/Units 15:35 Sodium 140 (137-145) mmol/L Potassium 4.0 (3.5-5.1) mmol/L Chloride 105 (98-107) mmol/L Carbon Dioxide 33 H (22-30) mmol/L BUN 11 (7-17) mg/dL Creatinine 0.88 (0.52-1.04) mg/dL Glucose 191 H (74-99) mg/dL Calcium 9.1 (8.4-10.2) mg/dL AST 14 (14-36) U/L ALT 6 (4-34) U/L Alkaline Phosphatase 55 (38-126) U/L Total Protein 6.3 (6.3-8.2) g/dL Albumin 3.4 L (3.5-5.0) g/dL Current Medications Generic Name Dose Route Start Last Admin Trade Name Freq PRN Reason Stop Dose Admin Atorvastatin Calcium 20 mg 03/28/21 20:45 03/29/21 07:51 Atorvastatin 20 Mg Tab PO 20 mg DAILY LINA Administration Docusate Sodium 100 mg 03/28/21 20:45 03/29/21 07:51 Docusate 100 Mg Cap PO 100 mg DAILY LINA Administration Furosemide 40 mg 03/29/21 09:15 03/29/21 09:29 Furosemide 40 Mg Tab PO 40 mg DAILY LINA Administration Insulin Aspart 0 unit 03/28/21 21:00 03/29/21 07:22 Insulin Aspart (Novolog) 100 Unit/Ml Vial SQ Not Given ACHS [facility] Protocol Insulin Detemir 27 unit 03/29/21 21:00 Insulin Detemir (Levemir) 100 Unit/Ml Syr SQ HS LINA Lorazepam 0.5 mg 03/28/21 18:13 Lorazepam 2 Mg/Ml Inj IV Q6HR PRN Anxiety Metolazone 2.5 mg 03/29/21 09:15 03/29/21 09:29 Metolazone 2.5 Mg Tab PO 2.5 mg DAILY LINA Administration Naloxone HCl 0.2 mg 03/28/21 18:13 Naloxone 0.4 Mg/Ml 1 Ml Vial IV Q2M PRN Opioid Reversal Ondansetron HCl 4 mg 03/28/21 18:13 Ondansetron 4 Mg/2 Ml Vial IVP Q8HR PRN Nausea And Vomiting Potassium Chloride 20 meq 03/28/21 20:45 03/29/21 07:51 Potassium Chloride Er 20 Meq Tab.Er PO 20 meq DAILY LINA Administration Intake and Output 03/28/21 03/29/21 03/29/21 22:59 06:59 14:59 Other: Voiding Method Bedside Commode Bedside Commode # Voids 1 Weight 113.398 kg 03/28/21 15:17 03/28/21 15:35
--- NOTE | 2021-03-29 14:20 | P.HPIM ---
History of Present Illness Patient is a 76-year-old the male came in with complaints of generalized weakness and also had a fall which she says she tripped and fell. Patient was actually admitted with concerns of CHF patient apparently had pedal edema although I valid the patient patient didn't appear to be normal pedal edema patient doesn't have any JVD doesn't have any significant pedal edema patient will be switched to oral Lasix and also given metolazone. Patient has not been taking her Lasix for 3 weeks. Patient denied any fever chills patient the is on 3 L of oxygen usually uses 3 L of oxygen at home chest x-ray is showing the pulmonary fibrosis patient does have history of pulmonary fibrosis. Patient wanted to be discharged and feels better denied any orthopnea or paroxysmal nocturnal dyspnea at home. PT and OT were consulted awaiting evaluation by physical therapy and occupational therapy patient was evaluated cardiology as well. Patient had a previous echocardiogram which showed diastolic dysfunction. Patient does have moderate pulmonary hypertension as well. Review of Systems REVIEW OF SYSTEMS: CONSTITUTIONAL: No fever, no malaise, no fatigue. HEENT: No recent visual problems or hearing problems. Denied any sore throat. CARDIOVASCULAR: No chest pain, orthopnea, PND, no palpitations, no syncope. PULMONARY: No shortness of breath, no cough, no hemoptysis. GASTROINTESTINAL: No diarrhea, no nausea, no vomiting, no abdominal pain. NEUROLOGICAL: No headaches, no weakness, no numbness. HEMATOLOGICAL: Denies any bleeding or petechiae. GENITOURINARY: Denies any burning micturition, frequency, or urgency. MUSCULOSKELETAL/RHEUMATOLOGICAL: Denies any joint pain, swelling, or any muscle pain. ENDOCRINE: Denies any polyuria or polydipsia. The rest of the 14-point review of systems is negative. Past Medical History Past Medical History: Cancer, Heart Failure, COPD, Diabetes Mellitus, Eye Disorder, Hyperlipidemia, Hypertension, Pneumonia Additional Past Medical History / Comment(s): Kidney cancer post-nephrectomy on the right, IDDM type II, neuropathy bilateral hands/feet, bilateral diabetic retinopathy with legal blindness in the past but vision better since eye injections, recent diagnosis of DVT of the right lower extremity, bronchitis, home oxygen at 6L/NC ATC, chronic elevation of the left hemidiaphragm, obstructive sleep apnea currently not using device, thoracolumbar kyphoscoliosis, constipation History of Any Multi-Drug Resistant Organisms: None Reported Past Surgical History: Appendectomy, Back Surgery, Hernia Repair, Joint Replacement, Tubal Ligation Additional Past Surgical History / Comment(s): Low back surgery, total R shoulder, R nephrectomy, several abdominal hernia surgeries, colonoscopy Past Anesthesia/Blood Transfusion Reactions: No Reported Reaction Additional Past Anesthesia/Blood Transfusion Reaction / Comment(s): Pt has received blood in past without reaction. Past Psychological History: No Psychological Hx Reported Additional Psychological History / Comment(s): Pt resides in an apartment at [facility]. She has home oxygen at 6/[facility]. She manages her own medications. She uses a walker or scooter. She gets places by [facility] [employer]. Smoking Status: Never smoker Past Alcohol Use History: None Reported Past Drug Use History: None Reported - Past Family History Mother Family Medical History: Cancer Father Family Medical History: Unable to Obtain Additional Family Medical History / Comment(s): Father when pt was 1 yrs old. Medications and Allergies Home Medications Medication Instructions Recorded Confirmed Type metFORMIN HCL [Glucophage] 500 mg PO AC-BID #60 tab 05/14/20 03/28/21 Rx Atorvastatin [Lipitor] 20 mg PO DAILY 03/28/21 03/28/21 History Furosemide [Lasix] 40 mg PO DAILY 03/28/21 03/28/21 History Insulin Detemir (Levemir) [Levemir] 27 unit SQ BID 03/28/21 03/28/21 History Potassium Chloride ER [K-Dur 20] 20 meq PO DAILY 03/28/21 03/28/21 History polyethylene glycoL 3350 [Miralax] 17 gm PO DAILY PRN #15 packet 03/29/21 Rx Allergies Allergy/AdvReac Type Severity Reaction Status Date / Time rofecoxib [From Vioxx] AdvReac Confusion Verified 03/28/21 16:10 Physical Exam Vitals: Vital Signs Temp Pulse Pulse Resp BP BP Pulse Ox 03/29/21 07:11 98.4 F 95 17 105/65 95 03/29/21 00:50 97.7 F 93 17 113/65 95 03/28/21 20:00 109 H 15 03/28/21 19:31 98.4 F 109 H 15 166/89 97 03/28/21 19:15 90 03/28/21 19:01 88 03/28/21 18:15 84 18 148/92 99 03/28/21 15:54 91 18 156/85 100 03/28/21 14:39 98.5 F 94 20 135/110 93 L Intake and Output 03/28/21 03/29/21 03/29/21 22:59 06:59 14:59 Other: Voiding Method Bedside Commode Bedside Commode # Voids 1 Weight 113.398 kg PHYSICAL EXAMINATION: GENERAL: The patient is alert and oriented x3, not in any acute distress. Well developed, well nourished. HEENT: Pupils are round and equally reacting to light. EOMI. No scleral icterus. No conjunctival pallor. Normocephalic, atraumatic. No pharyngeal erythema. No thyromegaly. CARDIOVASCULAR: S1 and S2 present. No murmurs, rubs, or gallops. PULMONARY: Chest is clear to auscultation, no wheezing or crackles. ABDOMEN: Soft, nontender, nondistended, normoactive bowel sounds. No palpable organomegaly. MUSCULOSKELETAL: No joint swelling or deformity. EXTREMITIES: No cyanosis, clubbing, or pedal edema. NEUROLOGICAL: Gross neurological examination did not reveal any focal deficits. SKIN: No rashes. Results CBC & Chem 7: 03/28/21 15:17 03/28/21 15:35 Labs: Abnormal Lab Results - Last 24 Hours (Table) 03/28/21 03/28/21 03/28/21 Range/Units 15:17 15:17 15:35 APTT 18.5 L (22.0-30.0) sec Carbon Dioxide 33 H (22-30) mmol/L Glucose 191 H (74-99) mg/dL POC Glucose (mg/dL) (75-99) mg/dL Albumin 3.4 L (3.5-5.0) g/dL Urine Protein Trace H (Negative) Urine Glucose (UA) 4+ H (Negative) 03/28/21 03/28/21 03/29/21 Range/Units 15:56 20:31 11:53 APTT (22.0-30.0) sec Carbon Dioxide (22-30) mmol/L Glucose (74-99) mg/dL POC Glucose (mg/dL) 174 H 245 H 160 H (75-99) mg/dL Albumin (3.5-5.0) g/dL Urine Protein (Negative) Urine Glucose (UA) (Negative) Thrombosis Risk Factor Assmnt - Choose All That Apply Each Factor Represents 1 point: Obesity (BMI >25), Swollen legs (current) Each Risk Factor Represents 3 Points: Age 75 years or older Thrombosis Risk Factor Assessment Total Risk Factor Score: 5 Thrombosis Risk Factor Assessment Level: High Risk Assessment and Plan Plan: -Generalized weakness: Obtain physical therapy and occupational therapy consultation there is no evidence of sepsis at this time. Patient doesn't appear to be in heart failure at this time either. May have had bilateral pedal edema on admission which was not present when I evaluated the patient. -Moderate pulmonary hypertension -Pulmonary fibrosis with chronic hypoxic respiratory failure requiring 3 L of oxygen which will be continued. Patient will follow-up with pulmonology as an outpatient -Fall patient appeared to have mechanical fall although related a week physical therapy and occupational therapy evaluation to see patient will benefit from physical therapy at home or subacute rehabilitation considering that she came in with generalized weakness -Type 2 diabetes mellitus patient was resumed on metformin, Levemir. -COPD without any acute exacerbation -Kidney cancer status post right nephrectomy -Chronic diastolic dysfunction without any acute exacerbation patient has not been taking her Lasix which will be resumed at this time patient will need BMP checked when she visits her PCP -Obesity -Hyperlipidemia Patient will be resumed on oral Lasix will be discharged today.
--- NOTE | 2021-03-29 14:21 | P.DS ---
Providers Date of admission: 03/28/21 18:15 Attending physician: Home Garrett MD Consults: 03/28/21 18:14 Consult Physician Routine Consulting Provider: Tejas Ruggiero Consult Reason/Comments: Heart failure, bilateral lower extremity edema, weakness Do you want consulting provider notified?: Yes Primary care physician: [facility] Course: Please refer to my HPI for further details Patient Condition at Discharge: Fair Plan - Discharge Summary Discharge Rx Participant: No New Discharge Prescriptions: New polyethylene glycoL 3350 [Miralax] 17 gm PO DAILY PRN #15 packet PRN Reason: Constipation Continue metFORMIN HCL [Glucophage] 500 mg PO AC-BID #60 tab Potassium Chloride ER [K-Dur 20] 20 meq PO DAILY Insulin Detemir (Levemir) [Levemir] 27 unit SQ BID Furosemide [Lasix] 40 mg PO DAILY Atorvastatin [Lipitor] 20 mg PO DAILY Discharge Medication List metFORMIN HCL [Glucophage] 500 mg PO AC-BID #60 tab 05/14/20 [Rx] Atorvastatin [Lipitor] 20 mg PO DAILY 03/28/21 [History] Furosemide [Lasix] 40 mg PO DAILY 03/28/21 [History] Insulin Detemir (Levemir) [Levemir] 27 unit SQ BID 03/28/21 [History] Potassium Chloride ER [K-Dur 20] 20 meq PO DAILY 03/28/21 [History] polyethylene glycoL 3350 [Miralax] 17 gm PO DAILY PRN #15 packet 03/29/21 [Rx] Follow up Appointment(s)/Referral(s): Giuseppe Gómez DO [Doctor of Osteopathic Medicine] - 04/29/21 9:00 am Rossana Raymundo NPC [REFERRING] - 04/07/21 1:30 pm Patient Instructions/Handouts: Pulmonary Fibrosis (GEN), Weakness (ED) Activity/Diet/Wound Care/Special Instructions: Follow with her primary care physician. Return to emergency department if symptoms worsen. Discharge Disposition: HOME SELF-CARE
[2021-03-29] MEDS ORDERED: INSULIN DETEMIR (LEVEMIR) 100 UNIT/ML SYR SQ SCH (21:00)
--- NOTE | 2021-03-30 11:00 | ECHOF ---
Referral Reason:pulmonary HTN, lower extremity edema MEASUREMENTS -------- HEIGHT: 154.9 cm WEIGHT: 113.4 kg BP: RVIDd: 2.7 cm (< 3.3) IVSd: 1.5 cm (0.6 - 1.1) LVIDd: 2.1 cm (3.9 - 5.3) LVPWd: 1.5 cm (0.6 - 1.1) IVSs: 1.8 cm LVIDs: 1.0 cm LVPWs: 1.2 cm Ao Diam: 3.2 cm (2.0 - 3.7) AV Cusp: 1.6 cm (1.5 - 2.6) LA Diam: 2.5 cm (2.7 - 3.8) MV EXCURSION: 8.980 mm (> 18.000) MV EF SLOPE: 90 mm/s (70 - 150) EPSS: 1.5 cm MV E Zac: 0.90 m/s MV DecT: 238 ms MV A Zac: 1.62 m/s MV E/A Ratio: 0.55 AR PHT: 721 ms RAP: 5.00 mmHg RVSP: 74.81 mmHg FINDINGS -------- This was a technically difficult study with suboptimal views. There is moderate concentric left ventricular hypertrophy. Overall left ventricular systolic functi on is normal with, an EF between 55 - 60 %. The right ventricle is normal in size. The left atrial size is normal. The right atrial size is normal. The aortic valve is trileaflet and appears structurally normal. The mitral valve leaflets are moderately thickened. Moderate mitral annular calcification present. There is trace mitral regurgitation. The peak and mean MV gradients are 18.05mmHg 6.97mmHg as me asured by doppler. Moderate mitral stenosis. The tricuspid valve appears structurally normal. Mild tricuspid regurgitation present. Right vent ricular systolic pressure is normal at < 35 mmHg. The pulmonic valve was not well visualized. The aortic root size is normal. IVC Not well visulized. There is no pericardial effusion. CONCLUSIONS -------- 1. There is moderate concentric left ventricular hypertrophy. 2. Overall left ventricular systolic function is normal with, an EF between 55 - 60 %. 3. The mitral valve leaflets are moderately thickened. 4. Moderate mitral annular calcification present. 5. There is trace mitral regurgitation. 6. The peak and mean MV gradients are 18.05mmHg 6.97mmHg as measured by doppler. 7. Moderate mitral stenosis. 8. Mild tricuspid regurgitation present. 9. There is no pericardial effusion. [employer]: Nova Fernandes RDCS
== END 2021-03-29 15:38 | disposition home or self-care (01) ==
LOC: EC 14:36 → 4SSUR 18:15
PROVIDERS: ADMIT Internal Medicine; ATTEND Internal Medicine
DX: R53.1 Weakness (principal); J96.11 Chronic respiratory failure with hypoxia; I11.0 Hypertensive heart disease with heart failure; I50.32 Chronic diastolic (congestive) heart failure; G47.33 Obstructive sleep apnea (adult) (pediatric); E11.319 Type 2 diabetes mellitus with unspecified diabetic retinopathy without macular edema; E78.5 Hyperlipidemia, unspecified; J98.11 Atelectasis; J44.9 Chronic obstructive pulmonary disease, unspecified; J84.10 Pulmonary fibrosis, unspecified; I45.10 Unspecified right bundle-branch block; H54.8 Legal blindness, as defined in USA; K59.00 Constipation, unspecified; J98.6 Disorders of diaphragm; I27.20 Pulmonary hypertension, unspecified; I08.0 Rheumatic disorders of both mitral and aortic valves; E66.01 Morbid (severe) obesity due to excess calories; Z68.43 Body mass index [BMI] 50.0-59.9, adult; M41.9 Scoliosis, unspecified; Z20.822 Contact with and (suspected) exposure to COVID-19; Z99.81 Dependence on supplemental oxygen; Z79.4 Long term (current) use of insulin; Z79.899 Other long term (current) drug therapy; Z88.6 Allergy status to analgesic agent; Z85.528 Personal history of other malignant neoplasm of kidney; Z86.718 Personal history of other venous thrombosis and embolism; Z90.5 Acquired absence of kidney; Z90.49 Acquired absence of other specified parts of digestive tract; Z96.611 Presence of right artificial shoulder joint; Z98.51 Tubal ligation status; Z98.890 Other specified postprocedural states; Z87.01 Personal history of pneumonia (recurrent); Z91.19 Patient's noncompliance with other medical treatment and regimen; W01.0XXA Fall on same level from slipping, tripping and stumbling without subsequent striking against object, initial encounter; Z80.9 Family history of malignant neoplasm, unspecified
CPT/HCPCS: 96374; 99285; 36415; 93005; 93306; 97161; 83880; 80053; 84484; 85025; 85610; 85730; 81003; 87635; 71046; 70450; G0378 ×2; J1940

== ENCOUNTER 2021-04-07 11:17 | Inpatient (IN) | payer MEDICARE ==
[2021-04-07] MEDS ORDERED: SODIUM CHLORIDE 0.9% 500 ML 500 ML IV STA (11:49)
--- NOTE | 2021-04-07 12:14 | ED ---
Fall HPI - General Source: patient, EMS Mode of arrival: EMS Limitations: no limitations <Grant Mcallister - Last Filed: 04/07/21 12:12> <Giuseppe Murillo - Last Filed: 04/07/21 17:20> - General Chief Complaint: Fall Stated Complaint: fall Time Seen by Provider: 04/07/21 11:35 - History of Present Illness Initial Comments: This a 76-year-old female presents emergency department via EMS from home at [facility] chief complaint of fall. She states she woke up on the ground unsure how long she was there she had there. She denies any significant injury from her fall states that she occasionally does have falls and has been more tired and usual denies chest pain shortness breath back pain and headache neck pain neck stiffness hip pain. Patient states that she has not eaten recently deny any last night and is known diabetic. (Grant Mcallister) - Related Data Home Medications Medication Instructions Recorded Confirmed Atorvastatin [Lipitor] 20 mg PO DAILY 03/28/21 04/07/21 Furosemide [Lasix] 40 mg PO DAILY 03/28/21 04/07/21 Potassium Chloride ER [K-Dur 20] 20 meq PO DAILY 03/28/21 04/07/21 Insulin Detemir [Levemir Flextouch] 27 units SQ BID 04/07/21 04/07/21 Previous Rx's Medication Instructions Recorded metFORMIN HCL [Glucophage] 500 mg PO AC-BID #60 tab 05/14/20 polyethylene glycoL 3350 [Miralax] 17 gm PO DAILY PRN #15 packet 03/29/21 Allergies Allergy/AdvReac Type Severity Reaction Status Date / Time rofecoxib [From Vioxx] AdvReac Confusion Verified 04/07/21 15:48 Review of Systems ROS Other: All systems not noted in ROS Statement are negative. <rGant Mcallister - Last Filed: 04/07/21 12:12> ROS Other: All systems not noted in ROS Statement are negative. <Giuseppe Murillo - Last Filed: 04/07/21 17:20> ROS Statement: Those systems with pertinent positive or pertinent negative responses have been documented in the HPI. Past Medical History Past Medical History: Cancer, Heart Failure, COPD, Diabetes Mellitus, Eye Disorder, Hyperlipidemia, Hypertension, Pneumonia Additional Past Medical History / Comment(s): Kidney cancer post-nephrectomy on the right, IDDM type II, neuropathy bilateral hands/feet, bilateral diabetic retinopathy with legal blindness in the past but vision better since eye injections, recent diagnosis of DVT of the right lower extremity, bronchitis, home oxygen at 6L/[place] ATC, chronic elevation of the left hemidiaphragm, obstructive sleep apnea currently not using device, thoracolumbar kyphoscoliosis, constipation History of Any Multi-Drug Resistant Organisms: None Reported Past Surgical History: Appendectomy, Back Surgery, Hernia Repair, Joint Replacement, Tubal Ligation Additional Past Surgical History / Comment(s): Low back surgery, total R shoulder, R nephrectomy, several abdominal hernia surgeries, colonoscopy Past Anesthesia/Blood Transfusion Reactions: No Reported Reaction Additional Past Anesthesia/Blood Transfusion Reaction / Comment(s): Pt has received blood in past without reaction. Past Psychological History: No Psychological Hx Reported Smoking Status: Never smoker Past Alcohol Use History: None Reported Past Drug Use History: None Reported - Past Family History Mother Family Medical History: Cancer Father Family Medical History: Unable to Obtain Additional Family Medical History / Comment(s): Father when pt was 1 yrs old. <Grant Mcallister - Last Filed: 04/07/21 12:12> General Exam Limitations: no limitations General appearance: alert, in no apparent distress Head exam: Present: atraumatic, normocephalic, normal inspection Eye exam: Present: normal appearance, PERRL, EOMI. Absent: scleral icterus, conjunctival injection, periorbital swelling ENT exam: Present: normal exam, mucous membranes dry Neck exam: Present: normal inspection, full ROM. Absent: tenderness, meningismus, lymphadenopathy Respiratory exam: Present: normal lung sounds bilaterally. Absent: respiratory distress, wheezes, rales, rhonchi, stridor Cardiovascular Exam: Present: regular rate, normal rhythm, normal heart sounds. Absent: systolic murmur, diastolic murmur, rubs, gallop, clicks Back exam: Present: normal inspection, full ROM. Absent: tenderness Neurological exam: Present: alert, oriented X3, CN II-XII intact, reflexes normal. Absent: motor sensory deficit Skin exam: Present: warm, dry, intact, normal color. Absent: rash <Grant Mcallister - Last Filed: 04/07/21 12:12> Course Vital Signs 04/07/21 04/07/2104/07/21 11:26 14:27 16:53 Temperature 98.8 F Pulse Rate 90 84 81 Respiratory 18 24 20 Rate Blood Pressure 121/49 132/60 129/68 O2 Sat by Pulse 97 99 98 Oximetry Medical Decision Making - Lab Data Result diagrams: 04/07/21 13:31 04/07/21 13:31 - EKG Data -: EKG Interpreted by Ok EKG shows normal: sinus rhythm - Radiology Data Radiology results: report reviewed (Imaging reviewed no acute findings basically reports), image reviewed <Giuseppe Murillo - Last Filed: 04/07/21 17:20> - Medical Decision Making The patient herself is a poor historian she was found the side of the bed unknown how she got there his syncope is considered her troponin is elevated no acute EKG changes. I did discuss case with Dr. Ram the patient will be admi tted (Giuseppe Murillo) - Lab Data Lab Results 04/07/21 04/07/21 04/07/21 Range/Units 13:24 13:31 13:31 WBC 8.0 (3.8-10.6) k/uL RBC 4.72 (3.80-5.40) m/uL Hgb 12.9 (11.4-16.0) gm/dL Hct 41.1 (34.0-46.0) % MCV 87.0 (80.0-100.0) fL MCH 27.3 (25.0-35.0) pg MCHC 31.4 (31.0-37.0) g/dL RDW 14.7 (11.5-15.5) % Plt Count 224 (150-450) k/uL MPV 7.1 Neutrophils % 63 % Lymphocytes % 25 % Monocytes % 6 % Eosinophils % 3 % Basophils % 1 % Neutrophils # 5.0 (1.3-7.7) k/uL Lymphocytes # 2.0 (1.0-4.8) k/uL Monocytes # 0.5 (0-1.0) k/uL Eosinophils # 0.2 (0-0.7) k/uL Basophils # 0.1 (0-0.2) k/uL Hypochromasia Slight PT 10.6 (9.0-12.0) sec INR 1.0 (<1.2) APTT 19.6 L (22.0-30.0) sec Sodium (137-145) mmol/L Potassium (3.5-5.1) mmol/L Chloride (98-107) mmol/L Carbon Dioxide (22-30) mmol/L Anion Gap mmol/L BUN (7-17) mg/dL Creatinine (0.52-1.04) mg/dL Est GFR (CKD-EPI)AfAm (>60 ml/min/1.73 sqM) Est GFR (CKD-EPI)NonAf (>60 ml/min/1.73 sqM) Glucose (74-99) mg/dL POC Glucose (mg/dL) (75-99) mg/dL POC Glu [place] Smearer ID Calcium (8.4-10.2) mg/dL Magnesium (1.6-2.3) mg/dL Total Bilirubin (0.2-1.3) mg/dL AST (14-36) U/L ALT (4-34) U/L Alkaline Phosphatase (38-126) U/L Creatine Kinase (30-135) U/L Troponin I (0.000-0.034) ng/mL Total Protein (6.3-8.2) g/dL Albumin (3.5-5.0) g/dL Urine Color Light Yellow Urine Appearance Clear (Clear) Urine pH 5.0 (5.0-8.0) Ur Specific [place] 1.010 (1.001-1.035) Urine Protein Negative (Negative) Urine Glucose (UA) 1+ H (Negative) Urine Ketones Negative (Negative) Urine Blood Negative (Negative) Urine Nitrite Negative (Negative) Urine Bilirubin Negative (Negative) Urine Urobilinogen <2.0 (<2.0) mg/dL Ur Leukocyte Esterase Moderate H (Negative) Urine WBC 3 (0-5) /hpf Ur Squamous Epith Cells 2 (0-4) /hpf Urine Bacteria Rare H (None) /hpf Urine Mucus Rare H (None) /hpf 04/07/21 04/07/21 04/07/21 Range/Units 13:31 13:31 14:24 WBC (3.8-10.6) k/uL RBC (3.80-5.40) m/uL Hgb (11.4-16.0) gm/dL Hct (34.0-46.0) % MCV (80.0-100.0) fL MCH (25.0-35.0) pg MCHC (31.0-37.0) g/dL RDW (11.5-15.5) % Plt Count (150-450) k/uL MPV Neutrophils % % Lymphocytes % % Monocytes % % Eosinophils % % Basophils % % Neutrophils # (1.3-7.7) k/uL Lymphocytes # (1.0-4.8) k/uL Monocytes # (0-1.0) k/uL Eosinophils # (0-0.7) k/uL Basophils # (0-0.2) k/uL Hypochromasia PT (9.0-12.0) sec INR (<1.2) APTT (22.0-30.0) sec Sodium 141 (137-145) mmol/L Potassium 3.8 (3.5-5.1) mmol/L Chloride 104 (98-107) mmol/L Carbon Dioxide 31 H (22-30) mmol/L Anion Gap 6 mmol/L BUN 15 (7-17) mg/dL Creatinine 0.91 (0.52-1.04) mg/dL Est GFR (CKD-EPI)AfAm 70 (>60 ml/min/1.73 sqM) Est GFR (CKD-EPI)NonAf 61 (>60 ml/min/1.73 sqM) Glucose 222 H (74-99) mg/dL POC Glucose (mg/dL) 218 H (75-99) mg/dL POC Glu [place] Smearer ID [place] Calcium 9.3 (8.4-10.2) mg/dL Magnesium 1.5 L (1.6-2.3) mg/dL Total Bilirubin 0.8 (0.2-1.3) mg/dL AST 30 (14-36) U/L ALT 11 (4-34) U/L Alkaline Phosphatase 61 (38-126) U/L Creatine Kinase 420 H (30-135) U/L Troponin I 0.137 H* (0.000-0.034) ng/mL Total Protein 6.9 (6.3-8.2) g/dL Albumin 3.6 (3.5-5.0) g/dL Urine Color Urine Appearance (Clear) Urine pH (5.0-8.0) Ur Specific [place] (1.001-1.035) Urine Protein (Negative) Urine Glucose (UA) (Negative) Urine Ketones (Negative) Urine Blood (Negative) Urine Nitrite (Negative) Urine Bilirubin (Negative) Urine Urobilinogen (<2.0) mg/dL Ur Leukocyte Esterase (Negative) Urine WBC (0-5) /hpf Ur Squamous Epith Cells (0-4) /hpf Urine Bacteria (None) /hpf Urine Mucus (None) /hpf - EKG Data EKG Comments: EKG shows sinus rhythm a 79. 184 QRS 120 daily since QTC 372/426) the branch block left posterior fascicular block septal changes noted this is unchanged from EKG dated (Giuseppe Murillo) Critical Care Time Critical Care Time: Yes Total Critical Care Time: 31 <Giuseppe Murillo - Last Filed: 04/07/21 17:20> Disposition <Grant Mcallister - Last Filed: 04/07/21 12:12> <Giuseppe Murillo - Last Filed: 04/07/21 17:20> Clinical Impression: Syncope, Non-STEMI (non-ST elevated myocardial infarction) Disposition: ADMITTED IP TO THIS HOSP Condition: Fair Referrals: Kip Bishop III, MD [Primary Care Provider] - 1-2 days
[2021-04-07 13:55] LABS: Appearance,Urine Clear (Clear); Bacteria,Urine Rare /hpf; Bilirubin,Urine Negative (Negative); Blood,Urine Negative (Negative); Color,Urine Light Yellow; Glucose,Urine (UA) 1+ (Negative); Ketones,Urine Negative (Negative); Leukocyte Esterase,Urine Moderate (Negative); Mucus,Urine Rare /hpf; Nitrite,Urine Negative (Negative); Protein,Urine Negative (Negative); Squamous Epithelial Cell,Urine 2 /hpf (0-4); Urobilinogen,Urine <2.0 mg/dL (<2.0); WBC,Urine 3 /hpf (0-5)
--- NOTE | 2021-04-07 14:12 | CT ---
EXAMINATION TYPE: CT brain cspine wo con DATE OF EXAM: 04/07/2021 COMPARISON: Brain 03/28/2021. Chest 08/13/2019. HISTORY: 76-year-old female syncope CT DLP: 1867.9 mGycm Automated exposure control for dose reduction was used. Technique: Examination of the head was done in axial plane without intravenous contrast. Coronal and sagittal reconstructions performed. CT of the cervical spine was obtained in axial plane without intravenous injection of contrast mater ial. Coronal and sagittal reformatted images were obtained from the axial views for evaluation of f ractures, spinal alignment and canal. FINDINGS: Head: There is no evidence of acute intracranial hemorrhage, acute ischemic changes, mass, mass-effect, or extra-axial fluid collection. There is no effacement of cerebral sulci or basal subarachnoid cister ns. There is no midline shift. [place]-white matter distinction is preserved. Mild generalized supratentorial volume loss. Similar mild prominence to the ventricular system. Moder ate patchy and confluent white matter hypodensities in both cerebral hemispheres. Mild mucosal thickening left maxillary sinus. Slight leftward nasal septal deviation. Mastoid air kvng ls are well pneumatized. Cervical spine: 4 mm posterior left upper lobe pulmonary nodule, unchanged from the 2019 study. Calcified granuloma a t the left midlung. Nodular appearance to the thyroid gland, possible goiter was also present previously. No craniocervical junction abnormality, predental space widening, or prevertebral soft tissue swellin g. Detailed osseous assessment is limited due to bryan patient motion through the mid cervical spine and very large body habitus resulting in beam hardening. No obvious displaced fracture. Facet and uncove rtebral joint arthropathy is present throughout. Trace grade 1 retrolisthesis C3-C4 and C4-C5. There is grade 1 anterolisthesis C7-T1 and T1-T2. Sagittal and coronal reformatted images confirm above findings. COMBINED IMPRESSION: 1. No acute intracranial abnormality seen. Mild generalized atrophy and moderate burden of chronic sm all vessel ischemic disease. 2. Very limited assessment of the cervical spine due to combination of motion and large body habitus casting beam hardening through the mid cervical spine. There is moderate spondylotic change with dege nerative grade 1 spondylolisthesis at C3-C4, C4-C5, C7-T1, and T1-T2. No obvious fracture is seen.
--- NOTE | 2021-04-07 14:22 | XR ---
EXAMINATION TYPE: XR pelvis AP view DATE OF EXAM: 04/07/2021 CLINICAL HISTORY: Follow injury with pain. TECHNIQUE: A single AP view of the pelvis is obtained. CT abdomen and pelvis July 29, 2020. FINDINGS: There is no acute fracture/dislocation evident in the pelvis. The sacroiliac joints appea r symmetric and unremarkable. Pubic symphysis appears intact. [id number] axial joint space los s in both hips. Vascular calcification and phleboliths overlie the pelvis. Partial visualization of s urgical change lower lumbar spine. IMPRESSION: There is no acute fracture or dislocation in the pelvis.
--- NOTE | 2021-04-07 14:25 | XR ---
EXAMINATION TYPE: XR chest 1V portable DATE OF EXAM: 04/07/2021 COMPARISON: Chest x-ray 10 days ago HISTORY: Syncope and weakness. TECHNIQUE: Single frontal view of the chest is obtained. FINDINGS: There is persistent cardiomegaly and left basilar opacity along with central vascular robby estion. Advanced Degenerative change left glenohumeral joint. Partial visualization of surgical noriega e right shoulder. IMPRESSION: Cardiomegaly with central vascular congestion and persistent left basilar acute infiltra te and/or atelectasis. No significant change from prior.
[2021-04-07 14:26] LABS: Glucose,Whole Blood 218 mg/dL (75-99)
[2021-04-07 14:40] LABS: Basophils # (A) 0.1 k/uL (0-0.2); Basophils % (A) 1 %; Eosinophils # (A) 0.2 k/uL (0-0.7); Eosinophils % (A) 3 %; HCT 41.1 % (34.0-46.0); HGB 12.9 gm/dL (11.4-16.0); Hypochromasia Slight; Lymphocytes % (A) 25 %; MCH 27.3 pg (25.0-35.0); MCHC 31.4 g/dL (31.0-37.0); Mean Platelet Volume 7.1; Monocytes # (A) 0.5 k/uL (0-1.0); Monocytes % (A) 6 %; Neutrophils % (A) 63 %; Platelet Count 224 k/uL (150-450); RBC 4.72 m/uL (3.80-5.40); RDW 14.7 % (11.5-15.5)
[2021-04-07 14:49] LABS: Albumin 3.6 g/dL (3.5-5.0); Calcium 9.3 mg/dL (8.4-10.2); Magnesium 1.5 mg/dL (1.6-2.3); Potassium 3.8 mmol/L (3.5-5.1); Total Bilirubin 0.8 mg/dL (0.2-1.3); Total Protein 6.9 g/dL (6.3-8.2)
[2021-04-07 15:08] LABS: Prothrombin Time 10.6 sec (9.0-12.0)
[2021-04-07 15:14] LABS: Partial Thromboplastin Time 19.6 sec (22.0-30.0)
[2021-04-07] MEDS ORDERED: HEPARIN SODIUM 1,000 UN/ML (10ML VL) IV ONE (17:20)
[2021-04-07] MEDS ORDERED: NITROGLYCERIN SL TABS 0.4 MG TAB SUBLINGUAL PRN (17:20)
[2021-04-07] MEDS ORDERED: polyethylene glycoL 3350 17 GM POWD.PACK PO PRN (17:23)
[2021-04-07] MEDS ORDERED: SODIUM CHLORIDE 0.9% 1,000 ML IV SCH (17:30)
[2021-04-07] MEDS ORDERED: HEPARIN SOD,PORK IN 0.45% NACL 25,000 UNIT in 0.45% NACL 1 250ML.BAG IV SCH (17:30)
[2021-04-07] MEDS ORDERED: BUDESONIDE 0.5 MG/2 ML NEBU INHALATION STA (17:30)
[2021-04-07] MEDS ORDERED: FUROSEMIDE 10 MG/ML 4 ML VIAL IV STA (18:05)
--- NOTE | 2021-04-07 18:17 | P.HPIM ---
History of Present Illness 76-year-old female presents emergency department via EMS from home at [facility] chief complaint of fall. She states she woke up on the ground unsure how long she was there she had there. She denies any significant injury from h er fall states that she occasionally does have falls and has been more tired and usual denies chest pain shortness breath back pain and headache neck pain neck stiffness hip pain. Patient states that she has not eaten recently deny any last night and is known diabetic. Patient is also found to have mildly elevated troponin of 0.137 patient denied any chest pain at this time patient is being admitted the with consulted cardiology because of this the elevated troponin because of the fall and possible syncope. Patient had a recent echocardiogram which showed normal ejection fraction no valvular abnormalities because of which patient may not need another echocardiogram patient. Patient was recently discharged from the hospital after she was admitted for bilateral pedal edema at that time patient didn't have any heart failure. Patient was subsequently discharged. Patient denied any shortness of breath orthopnea or paroxysmal nocturnal dyspnea or chest x-ray although in fact showed mild pulmonary edema. Review of Systems REVIEW OF SYSTEMS: CONSTITUTIONAL: No fever, no malaise, no fatigue. HEENT: No recent visual problems or hearing problems. Denied any sore throat. CARDIOVASCULAR: No chest pain, orthopnea, PND, no palpitations, no syncope. PULMONARY: No shortness of breath, no cough, no hemoptysis. GASTROINTESTINAL: No diarrhea, no nausea, no vomiting, no abdominal pain. NEUROLOGICAL: No headaches, no weakness, no numbness. HEMATOLOGICAL: Denies any bleeding or petechiae. GENITOURINARY: Denies any burning micturition, frequency, or urgency. MUSCULOSKELETAL/RHEUMATOLOGICAL: Denies any joint pain, swelling, or any muscle pain. ENDOCRINE: Denies any polyuria or polydipsia. The rest of the 14-point review of systems is negative. Past Medical History Past Medical History: Cancer, Heart Failure, COPD, Diabetes Mellitus, Eye Disorder, Hyperlipidemia, Hypertension, Pneumonia Additional Past Medical History / Comment(s): Kidney cancer post-nephrectomy on the right, IDDM type II, neuropathy bilateral hands/feet, bilateral diabetic retinopathy with legal blindness in the past but vision better since eye injections, recent diagnosis of DVT of the right lower extremity, bronchitis, home oxygen at 6L/NC ATC, chronic elevation of the left hemidiaphragm, obstructive sleep apnea currently not using device, thoracolumbar kyphoscoliosis, constipation History of Any Multi-Drug Resistant Organisms: None Reported Past Surgical History: Appendectomy, Back Surgery, Hernia Repair, Joint Replacement, Tubal Ligation Additional Past Surgical History / Comment(s): Low back surgery, total R shoulde r, R nephrectomy, several abdominal hernia surgeries, colonoscopy Past Anesthesia/Blood Transfusion Reactions: No Reported Reaction Additional Past Anesthesia/Blood Transfusion Reaction / Comment(s): Pt has received blood in past without reaction. Past Psychological History: No Psychological Hx Reported Smoking Status: Never smoker Past Alcohol Use History: None Reported Past Drug Use History: None Reported - Past Family History Mother Family Medical History: Cancer Father Family Medical History: Unable to Obtain Additional Family Medical History / Comment(s): Father when pt was 1 yrs old. Medications and Allergies Home Medications Medication Instructions Recorded Confirmed Type metFORMIN HCL [Glucophage] 500 mg PO AC-BID #60 tab 05/14/20 04/07/21 Rx Atorvastatin [Lipitor] 20 mg PO DAILY 03/28/21 04/07/21 History Furosemide [Lasix] 40 mg PO DAILY 03/28/21 04/07/21 History Potassium Chloride ER [K-Dur 20] 20 meq PO DAILY 03/28/21 04/07/21 History polyethylene glycoL 3350 [Miralax] 17 gm PO DAILY PRN #15 packet 03/29/21 04/07/21 Rx Insulin Detemir [Levemir Flextouch] 27 units SQ BID 04/07/21 04/07/21 History Allergies Allergy/AdvReac Type Severity Reaction Status Date / Time rofecoxib [From Vioxx] AdvReac Confusion Verified 04/07/21 15:48 Physical Exam Vitals: Vital Signs Temp Pulse Resp BP Pulse Ox 04/07/21 16:53 81 20 129/68 98 04/07/21 14:27 84 24 132/60 99 04/07/21 11:26 98.8 F 90 18 121/49 97 Intake and Output 04/07/21 04/07/21 04/07/21 06:59 14:59 22:59 Other: Weight 113.398 kg PHYSICAL EXAMINATION: GENERAL: The patient is alert and oriented x3, not in any acute distress. Well developed, well nourished. HEENT: Pupils are round and equally reacting to light. EOMI. No scleral icterus. No conjunctival pallor. Normocephalic, atraumatic. No pharyngeal erythema. No thyromegaly. CARDIOVASCULAR: S1 and S2 present. No murmurs, rubs, or gallops. PULMONARY: Chest is clear to auscultation, no wheezing or crackles. ABDOMEN: Soft, nontender, nondistended, normoactive bowel sounds. No palpable organomegaly. MUSCULOSKELETAL: No joint swelling or deformity. EXTREMITIES: No cyanosis, clubbing, patient has mild pedal edema NEUROLOGICAL: Gross neurological examination did not reveal any focal deficits. SKIN: No rashes. Results CBC & Chem 7: 04/07/21 13:31 04/07/21 13:31 Labs: Abnormal Lab Results - Last 24 Hours (Table) 04/07/21 04/07/21 04/07/21 Range/Units 13:24 13:31 13:31 APTT 19.6 L (22.0-30.0) sec Carbon Dioxide 31 H (22-30) mmol/L Glucose 222 H (74-99) mg/dL POC Glucose (mg/dL) (75-99) mg/dL Magnesium 1.5 L (1.6-2.3) mg/dL Creatine Kinase 420 H (30-135) U/L Troponin I (0.000-0.034) ng/mL Urine Glucose (UA) 1+ H (Negative) Ur Leukocyte Esterase Moderate H (Negative) Urine Bacteria Rare H (None) /hpf Urine Mucus Rare H (None) /hpf 04/07/21 04/07/21 Range/Units 13:31 14:24 APTT (22.0-30.0) sec Carbon Dioxide (22-30) mmol/L Glucose (74-99) mg/dL POC Glucose (mg/dL) 218 H (75-99) mg/dL Magnesium (1.6-2.3) mg/dL Creatine Kinase (30-135) U/L Troponin I 0.137 H* (0.000-0.034) ng/mL Urine Glucose (UA) (Negative) Ur Leukocyte Esterase (Negative) Urine Bacteria (None) /hpf Urine Mucus (None) /hpf Assessment and Plan Plan: -Fall: Cannot rule out syncopal episode patient will be monitored overnight. Patient had a recent echocardiogram which did not show any significant abnormality. Patient will be evaluated by physical therapy and occupational therapy for generalized weakness and falls -Mildly elevated troponin: We'll repeat 2 more sets of troponins. She doesn't have any chest pain -Possible congestive heart failure chronic diastolic dysfunction with mild acute exacerbation patient will be started on the gentle diuresis probably can be switched to oral Lasix tomorrow -COPD without any acute exacerbation -Type 2 diabetes mellitus patient will be resumed on home regimen monitor blood sugars -Hyperlipidemia -Hypertension
[2021-04-07] MEDS: metFORMIN 500 MG TAB PO SCH (18:29)
[2021-04-07] MEDS: MAGNESIUM SULFATE-D5W PMX 1 GM in DEXTROSE/WATER 1 100ML.BAG IVPB SCH ×2 (18:29→20:14)
[2021-04-07 21:06] LABS: Glucose,Whole Blood 207 mg/dL (75-99)
[2021-04-07] MEDS: IPRATROPIUM-ALBUTEROL 3 ML NEB INHALATION SCH (21:14)
[2021-04-07] MEDS: FUROSEMIDE 10 MG/ML 4 ML VIAL IV SCH (21:55)
[2021-04-07] MEDS: INSULIN DETEMIR (LEVEMIR) 100 UNIT/ML SYR SQ SCH (21:55)
[2021-04-08 00:38] VITALS: RESP 16
[2021-04-08 06:03] LABS: Glucose,Whole Blood 219 mg/dL (75-99)
[2021-04-08] MEDS: INSULIN DETEMIR (LEVEMIR) 100 UNIT/ML SYR SQ SCH ×2 (06:38→20:43)
[2021-04-08] MEDS: metFORMIN 500 MG TAB PO SCH ×2 (06:39→17:47)
[2021-04-08] MEDS: IPRATROPIUM-ALBUTEROL 3 ML NEB INHALATION SCH ×4 (07:51→20:39)
[2021-04-08 08:36] LABS: Potassium 4.3 mmol/L (3.5-5.1)
[2021-04-08] MEDS ORDERED: FUROSEMIDE 40 MG TAB PO SCH (09:00)
[2021-04-08] MEDS ORDERED: ASPIRIN 325 MG TAB PO SCH (09:00)
[2021-04-08] MEDS ORDERED: ENOXAPARIN 40 MG/0.4 ML SYRINGE SQ SCH (09:00)
[2021-04-08] MEDS ORDERED: HEPARIN SODIUM 1,000 UN/ML (10ML VL) IV PRN ×2 (10:04→13:27)
[2021-04-08 10:06] LABS: HCT 43.6 % (34.0-46.0); HGB 13.7 gm/dL (11.4-16.0); Hypochromasia Marked; MCH 28.1 pg (25.0-35.0); MCHC 31.5 g/dL (31.0-37.0); MCV 89.2 fL (80.0-100.0); Mean Platelet Volume 7.5; Platelet Count 211 k/uL (150-450); RBC 4.89 m/uL (3.80-5.40); RDW 14.4 % (11.5-15.5); WBC 7.3 k/uL (3.8-10.6)
[2021-04-08] MEDS: POTASSIUM CHLORIDE ER 20 MEQ TAB.ER PO SCH (10:12)
[2021-04-08] MEDS: ASPIRIN 81 MG PO SCH (10:12)
[2021-04-08] MEDS: ATORVASTATIN 20 MG TAB PO SCH (10:12)
[2021-04-08] MEDS: FUROSEMIDE 10 MG/ML 4 ML VIAL IV SCH (10:12)
--- NOTE | 2021-04-08 10:27 | P.CRDCN ---
History of Present Illness History of present illness: found by staff at [facility] HISTORY OF PRESENTING ILLNESS This is a pleasant 76-year-old -[place] female past medical history significant for diabetes mellitus, COPD, hypertension, dyslipidemia, renal cancer s/p right nephrectomy, history of DVT and morbid obesity. She does not follow in the office with a ham smoker. We have been asked to see in consultation for elevated troponin. She was brought to the hospital after being found by staff at [facility]. She was stuck in her room in between the bed and dresser. She was unable to get up. She states she has been struggling with generalized weakness and frequent falls over the past couple weeks. She states her falls are frequent and seem to be related to leg weakness. She denies feeling dizzy or lightheaded. However, she also states she cannot remember exactly what happens. There are times when she loses time. She denies chest pain or shortness of breath. She frequently falls asleep during conversation and has to be woken up. Unsure if this lethargy is her baseline or new. She was seen in consultation by Dr. Veliz last week for lower extremity edema and confusion. At that time her edema was thought to be related to medication non-compliance and pulmonary hypertension. No significant heart failure at that time. DIAGNOSTICS EKG reveals sinus mechanism heart rate 79, right bundle branch block, left posterior fascicular block and poor R-wave progression. Telemetry tracings indicate sinus mechanism with no significant arrhythmia or pauses. Chest xray cardiomegaly with central vascular congestion and persistent left basilar infiltrate. CT of the head is negative for an acute intracranial abnormality Laboratory reviewed, CBC unremarkable, sodium 141, potassium 4.3, creatinine 0.94, magnesium 1.5, proBNP 524, CK 420, troponin 0.081, 0.137 and 0.137. Current cardiac medications include atorvastatin 20 mg daily and lasix 40 mg daily. Most recent echocardiogram obtained the 2020 revealed preserved LV systolic function with ejection fraction 55-60%, moderate mitral calcification, moderate mitral stenosis with mean gradient of 6.9 mmHg mild tricuspid regurgitation. REVIEW OF SYSTEMS At the time of my exam: CONSTITUTIONAL: Complains of generalized weakness. Denies fever or chills. CARDIOVASCULAR: Denies chest pain, shortness of breath, orthopnea, PND or palpitations. RESPIRATORY: Denies cough. GASTROINTESTINAL: Denies abdominal pain, diarrhea, constipation, nausea or vomiting. MUSCULOSKELETAL: Denies myalgias. NEUROLOGIC: Denies numbness, tingling, headacbe or weakness. ENDOCRINE: Denies fatigue, weight change, polydipsia or polyurina. GENITOURINARY: Denies burning, hematuria or urgency with micturation. HEMATOLOGIC: Denies history of anemia or bleeding. PHYSICAL EXAMINATION Blood pressure 138/70 heart rate 80 afebrile and maintaining oxygen saturation on nasal cannula. CONSTITUTIONAL:Morbidly obese. Lethargic. No apparent distress. HEENT: Head is normocephalic. Pupils are equal, round. Sclerae anicteric. Mucous membranes of the mouth are moist. No JVD. No carotid bruit. CHEST EXAMINATION: Lungs are clear to auscultation. No chest wall tenderness is noted on palpation or with deep breathing. HEART EXAMINATION: Regular rate and rhythm. S1, S2 heard. No murmurs, gallops or rub. Distant heart sounds. ABDOMEN: Soft, nontender. Positive bowel sounds. EXTREMITIES: 2+ peripheral pulses, no lower extremity edema and no calf tenderness. NEUROLOGIC EXAMINATION: Patient is awake, alert and oriented x3. ASSESSMENT Possible syncope Altered mental status Generalized weakness Hypomagnesemia Elevated troponin of unclear significance at this time Diabetes mellitus Dyslipidemia Renal cancer s/p nephrectomy History of DVT Morbid obesity, BMI 62 PLAN Check d-dimer and CTA if abnormal. Obtain limited 2D echocardiogram and Doppler study to assess cardiac function. Decrease aspirin to 81 mg daily. Repeat magnesium level. Ongoing telemetry monitoring. Further recommendations to follow based upon clinical course. Thank you kindly for this consultation. Nurse Practitioner note has been reviewed, I agree with a documented findings and plan of care. Patient was seen and examined. Past Medical History Past Medical History: Cancer, Heart Failure, COPD, Diabetes Mellitus, Eye Disorder, Hyperlipidemia, Hypertension, Pneumonia Additional Past Medical History / Comment(s): Kidney cancer post-nephrectomy on the right, IDDM type II, neuropathy bilateral hands/feet, bilateral diabetic retinopathy with legal blindness in the past but vision better since eye injections, recent diagnosis of DVT of the right lower extremity, bronchitis, home oxygen at 3L/[place] ATC, chronic elevation of the left hemidiaphragm, obstructive sleep apnea currently not using device, thoracolumbar kyphoscoliosis, constipation History of Any Multi-Drug Resistant Organisms: None Reported Past Surgical History: Appendectomy, Back Surgery, Hernia Repair, Joint Replacement, Tubal Ligation Additional Past Surgical History / Comment(s): Low back surgery, total R shoulder, R nephrectomy, several abdominal hernia surgeries, colonoscopy Past Anesthesia/Blood Transfusion Reactions: No Reported Reaction Additional Past Anesthesia/Blood Transfusion Reaction / Comment(s): Pt has received blood in past without reaction. Past Psychological History: No Psychological Hx Reported Additional Psychological History / Comment(s): Pt resides in an apartment at [facility]. She has home oxygen at [facility]. She manages her own medications. She uses a walker or scooter. She gets places by [facility] [employer]. Smoking Status: Never smoker Past Alcohol Use History: None Reported Past Drug Use History: None Reported - Past Family History Mother Family Medical History: Cancer Father Family Medical History: Unable to Obtain Additional Family Medical History / Comment(s): Father when pt was 1 yrs old. Medications and Allergies Home Medications Medication Instructions Recorded Confirmed Type metFORMIN HCL [Glucophage] 500 mg PO AC-BID #60 tab 05/14/20 04/07/21 Rx Atorvastatin [Lipitor] 20 mg PO DAILY 03/28/21 04/07/21 History Furosemide [Lasix] 40 mg PO DAILY 03/28/21 04/07/21 History Potassium Chloride ER [K-Dur 20] 20 meq PO DAILY 03/28/21 04/07/21 History polyethylene glycoL 3350 [Miralax] 17 gm PO DAILY PRN #15 packet 03/29/21 04/07/21 Rx Insulin Detemir [Levemir Flextouch] 27 units SQ BID 04/07/21 04/07/21 History Allergies Allergy/AdvReac Type Severity Reaction Status Date / Time rofecoxib [From Vioxx] AdvReac Confusion Verified 04/07/21 15:48 Physical Exam Vitals: Vital Signs Temp Pulse Pulse Resp BP BP Pulse Ox 04/08/21 04:00 80 16 138/70 96 04/08/21 00:00 97.5 F L 87 16 145/61 100 04/07/21 21:16 94 L 04/07/21 21:10 80 17 152/66 96 04/07/21 18:37 98.4 F 94 20 156/78 99 04/07/21 16:53 81 20 129/68 98 04/07/21 14:27 84 24 132/60 99 04/07/21 11:26 98.8 F 90 18 121/49 97 Intake and Output 04/07/21 04/08/21 04/08/21 22:59 06:59 14:59 Intake Total 52.833 Output Total 1400 Balance -1347.167 Intake: Intake, IV Titration 52.833 Amount Heparin Sod,Pork in 0.45% 52.833 NaCl 25,000 unit In 0.45 % NaCl 1 250ml.bag @ 8. 8185 UNITS/KG/HR 10 mls/ hr IV .Q24H [facility] Rx#: [id number] Output: Urine 1400 Straight 1400 Other: Voiding Method External Catheter Weight 113.398 kg 149 kg Results 04/07/21 13:31 04/08/21 07:55 Cardiac Enzymes 04/07/21 04/07/21 04/07/21 Range/Units 13:31 13:31 Unknown AST 30 (14-36) U/L Troponin I 0.137 H* 0.137 H* (0.000-0.034) ng/mL 04/08/21 Range/Units 00:36 AST (14-36) U/L Troponin I 0.081 H* (0.000-0.034) ng/mL Coagulation 04/07/21 Range/Units 13:31 PT 10.6 (9.0-12.0) sec APTT 19.6 L (22.0-30.0) sec CBC 04/07/21 Range/Units 13:31 WBC 8.0 (3.8-10.6) k/uL RBC 4.72 (3.80-5.40) m/uL Hgb 12.9 (11.4-16.0) gm/dL Hct 41.1 (34.0-46.0) % Plt Count 224 (150-450) k/uL Comprehensive Metabolic Panel 04/07/21 Range/Units 13:31 Sodium 141 (137-145) mmol/L Potassium 3.8 (3.5-5.1) mmol/L Chloride 104 (98-107) mmol/L Carbon Dioxide 31 H (22-30) mmol/L BUN 15 (7-17) mg/dL Creatinine 0.91 (0.52-1.04) mg/dL Glucose 222 H (74-99) mg/dL Calcium 9.3 (8.4-10.2) mg/dL AST 30 (14-36) U/L ALT 11 (4-34) U/L Alkaline Phosphatase 61 (38-126) U/L Total Protein 6.9 (6.3-8.2) g/dL Albumin 3.6 (3.5-5.0) g/dL Current Medications Generic Name Dose Route Start Last Admin Trade Name Freq PRN Reason Stop Dose Admin Albuterol/Ipratropium 3 ml 04/07/21 20:00 04/08/21 07:51 Ipratropium-Albuterol 3 Ml Neb INHALATION Not Given RT-QID LINA Aspirin 81 mg 04/08/21 09:00 Aspirin 325 Mg Tab PO DAILY LINA Atorvastatin Calcium 20 mg 04/08/21 09:00 Atorvastatin 20 Mg Tab PO DAILY LINA Enoxaparin Sodium 40 mg 04/08/21 09:00 Enoxaparin 40 Mg/0.4 Ml Syringe SQ DAILY LINA Furosemide 40 mg 04/07/21 21:00 04/07/21 21:55 Furosemide 10 Mg/Ml 4 Ml Vial IV 40 mg Q12HR LINA Administration Heparin Sodium/Sodium Chloride 250 mls @ 10 mls/hr 04/07/21 17:30 04/08/21 01:07 25,000 unit/ Sodium Chloride IV 8.82 units/kg/hr .Q24H LINA 10 mls/hr Titration Protocol 8.8185 UNITS/KG/HR Insulin Detemir 27 unit 04/07/21 21:00 04/08/21 06:38 Insulin Detemir (Levemir) 100 Unit/Ml Syr SQ 27 unit BID@0700,2100 LINA Administration Metformin HCl 500 mg 04/07/21 17:30 04/08/21 06:39 Metformin 500 Mg Tab PO 500 mg AC-BID LINA Administration Nitroglycerin 0.4 mg 04/07/21 17:20 Nitroglycerin Sl Tabs 0.4 Mg Tab SUBLINGUAL Q5M PRN Chest Pain Polyethylene Glycol 17 gm 04/07/21 17:23 Polyethylene Glycol 3350 17 Gm Powd.Pack PO DAILY PRN Constipation Potassium Chloride 20 meq 04/08/21 09:00 Potassium Chloride Er 20 Meq Tab.Er PO DAILY LINA Intake and Output 04/07/21 04/08/21 04/08/21 22:59 06:59 14:59 Intake Total 52.833 Output Total 1400 Balance -1347.167 Intake: Intake, IV Titration 52.833 Amount Heparin Sod,Pork in 0.45% 52.833 NaCl 25,000 unit In 0.45 % NaCl 1 250ml.bag @ 8. 8185 UNITS/KG/HR 10 mls/ hr IV .Q24H [facility] Rx#: [id number] Output: Urine 1400 Straight 1400 Other: Voiding Method External Catheter Weight 113.398 kg 149 kg 04/07/21 13:31 04/07/21 13:31
[2021-04-08 12:06] LABS: Glucose,Whole Blood 135 mg/dL (75-99)
--- NOTE | 2021-04-08 12:36 | CT ---
"EXAMINATION TYPE: CT angio chest DATE OF EXAM: 04/08/2021 12:22 PM COMPARISON: Chest x-ray from yesterday and older studies HISTORY: ELEVATED D-DIMER CT DLP: 840.0 mGycm Automated exposure control for dose reduction was used. CONTRAST: CTA scan of the thorax is performed with IV Contrast, patient injected with 80ML mL of Isovue 370, pu lmonary embolism protocol. MIP images are created and reviewed. FINDINGS: LUNGS: Persistent elevated left hemidiaphragm. There is left basilar atelectasis and/or chronic conso lidation. Right lung is clear. No pleural effusion or pneumothorax seen bilaterally MEDIASTINUM: There is satisfactory enhancement of the pulmonary artery and its branches, there are bi lateral pulmonary emboli beginning in the left lower lobe artery with segmental extension posteriorly and in the right lower lobe pulmonary artery with segmental and subsegmental extension. Persistent c ardiomegaly. Abnormal right ventricular dilatation noted. Enlarged main pulmonary artery of 3.3 cm im age 50. CT findings suggesting underlying pulmonary hypertension. OTHER: Metallic hardware from right shoulder surgery causes streak artifact limiting evaluation of u pper thoracic structures. Localizer shows additional surgical changes in the lower lumbar spine. Ther e are numerous clips partially imaged from right-sided nephrectomy. IMPRESSION: Bilateral pulmonary emboli with CT evidence suggesting right ventricular strain. Elevated left hemidiaphragm with left basilar atelectasis and/or chronic consolidation. 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 A [place] level critical message alert has been initiated for Hector Ram MD via the [employer] | Critical Results System on 04/08/2021 12:32 PM. This message alert has been sent to Hector Ram MD via the preferences provided by the clinician for the receipt of Radiology Critical Find ings. Message ID [id number]."
--- NOTE | 2021-04-08 13:02 | P.PN ---
Subjective 76-year-old female was admitted for possible syncope. Patient had an echocardiogram which showed a dilated right ventricle. Patient had a normal ec hocardiogram in the past because the dilated right ventricle there was a concern about PE d-dimer was up and which is elevated and patient had a CT of the chest which showed bilateral pulmonary emboli. Patient is presently on heparin which will be continued if patient is clinically stable patient will be transitioned to Eliquis tomorrow. Patient has multiple falls, PT and OT to evaluate the acosta ent. Patient has a right ventricle strain on the echocardiogram as well as a on the computed tomography scan. Patient becomes symptomatically unstable patient will need EKOS procedure. Constitutional: Denied any fatigue denied any fever. Cardio vascular: denied any chest pain, palpitations Gastrointestinal denied any nausea vomiting Pulmonary: Denied any shortness of breath cough Neurologic denied any new focal deficits All inpatient medications were reviewed and appropriate changes in these medications as dictated in the interval history and assessment and plan. Objective - Vital Signs Vital signs: Vital Signs Temp 98.6 F 04/08/21 08:45 Pulse 82 04/08/21 08:45 Resp 16 04/08/21 08:45 BP 108/58 04/08/21 08:45 Pulse Ox 98 04/08/21 08:45 Intake & Output 04/07/21 04/08/21 04/08/21 18:59 06:59 18:59 Intake Total 52.833 87.167 Output Total 1400 300 Balance -1347.167 -212.833 Weight 113.398 kg 149 kg Intake: Intake, IV Titration 52.833 87.167 Amount Heparin Sod,Pork in 0.45% 52.833 87.167 NaCl 25,000 unit In 0.45 % NaCl 1 250ml.bag @ 8. 8185 UNITS/KG/HR 10 mls/ hr IV .Q24H [facility] Rx#: [id number] Oral 0 Output: Urine 1400 300 Straight 1400 Other: Voiding Method External Catheter External Catheter - Exam PHYSICAL EXAMINATION: GENERAL: The patient is alert and oriented x3, not in any acute distress. Well developed, well nourished. Obese HEENT: Pupils are round and equally reacting to light. EOMI. No scleral icterus. No conjunctival pallor. Normocephalic, atraumatic. No pharyngeal erythema. No thyromegaly. CARDIOVASCULAR: S1 and S2 present. No murmurs, rubs, or gallops. PULMONARY: Chest is clear to auscultation, no wheezing or crackles. ABDOMEN: Soft, nontender, nondistended, normoactive bowel sounds. No palpable organomegaly. MUSCULOSKELETAL: No joint swelling or deformity. EXTREMITIES: No cyanosis, clubbing, or pedal edema. NEUROLOGICAL: Gross neurological examination did not reveal any focal deficits. SKIN: No rashes. - Labs CBC & Chem 7: 04/08/21 07:55 04/08/21 07:55 Labs: Abnormal Lab Results - Last 24 Hours (Table) 04/07/21 04/07/21 04/07/21 Range/Units 13:24 13:31 13:31 APTT 19.6 L (22.0-30.0) sec D-Dimer (<0.60) mg/L FEU Carbon Dioxide 31 H (22-30) mmol/L Glucose 222 H (74-99) mg/dL POC Glucose (mg/dL) (75-99) mg/dL Magnesium 1.5 L (1.6-2.3) mg/dL Creatine Kinase 420 H (30-135) U/L Troponin I (0.000-0.034) ng/mL Urine Glucose (UA) 1+ H (Negative) Ur Leukocyte Esterase Moderate H (Negative) Urine Bacteria Rare H (None) /hpf Urine Mucus Rare H (None) /hpf 04/07/21 04/07/21 04/07/21 Range/Units 13:31 14:24 21:04 APTT (22.0-30.0) sec D-Dimer (<0.60) mg/L FEU Carbon Dioxide (22-30) mmol/L Glucose (74-99) mg/dL POC Glucose (mg/dL) 218 H 207 H (75-99) mg/dL Magnesium (1.6-2.3) mg/dL Creatine Kinase (30-135) U/L Troponin I 0.137 H* (0.000-0.034) ng/mL Urine Glucose (UA) (Negative) Ur Leukocyte Esterase (Negative) Urine Bacteria (None) /hpf Urine Mucus (None) /hpf 04/07/21 04/08/21 04/08/21 Range/Units Unknown 00:36 05:58 APTT (22.0-30.0) sec D-Dimer (<0.60) mg/L FEU Carbon Dioxide (22-30) mmol/L Glucose (74-99) mg/dL POC Glucose (mg/dL) 219 H (75-99) mg/dL Magnesium (1.6-2.3) mg/dL Creatine Kinase (30-135) U/L Troponin I 0.137 H* 0.081 H* (0.000-0.034) ng/mL Urine Glucose (UA) (Negative) Ur Leukocyte Esterase (Negative) Urine Bacteria (None) /hpf Urine Mucus (None) /hpf 04/08/21 04/08/21 04/08/21 Range/Units 07:55 07:55 07:55 APTT 20.5 L (22.0-30.0) sec D-Dimer 4.12 H (<0.60) mg/L FEU Carbon Dioxide 33 H (22-30) mmol/L Glucose 235 H (74-99) mg/dL POC Glucose (mg/dL) (75-99) mg/dL Magnesium (1.6-2.3) mg/dL Creatine Kinase (30-135) U/L Troponin I (0.000-0.034) ng/mL Urine Glucose (UA) (Negative) Ur Leukocyte Esterase (Negative) Urine Bacteria (None) /hpf Urine Mucus (None) /hpf 04/08/21 Range/Units 11:53 APTT (22.0-30.0) sec D-Dimer (<0.60) mg/L FEU Carbon Dioxide (22-30) mmol/L Glucose (74-99) mg/dL POC Glucose (mg/dL) 135 H (75-99) mg/dL Magnesium (1.6-2.3) mg/dL Creatine Kinase (30-135) U/L Troponin I (0.000-0.034) ng/mL Urine Glucose (UA) (Negative) Ur Leukocyte Esterase (Negative) Urine Bacteria (None) /hpf Urine Mucus (None) /hpf Assessment and Plan Plan: -Syncope: Patient is found to have pulmonary embolism. Patient will be can you done IV high intensity heparin will be wanted one more night if she is symptomatically stable patient will be transitioned to Eliquis. -Fall: Generalized weakness PT and OT to evaluate the patient -Mildly elevated troponin: We'll repeat 2 more sets of troponins. She doesn't have any chest pain -Possible congestive heart failure chronic diastolic dysfunction with mild acute exacerbation was switched to oral Lasix today -COPD without any acute exacerbation -Type 2 diabetes mellitus patient will be resumed on home regimen monitor blood sugars -Hyperlipidemia -Hypertension
[2021-04-08] MEDS ORDERED: HEPARIN SODIUM 1,000 UN/ML (10ML VL) IV ONE (13:27)
[2021-04-08] MEDS: HEPARIN SOD,PORK IN 0.45% NACL 25,000 UNIT in 0.45% NACL 1 250ML.BAG IV SCH ×2 (13:35→17:41)
[2021-04-08 17:12] LABS: Glucose,Whole Blood 260 mg/dL (75-99)
[2021-04-08 19:52] LABS: Glucose,Whole Blood 269 mg/dL (75-99)
[2021-04-08 22:00] LABS: Chol/HDL Ratio 3.5; LDL Cholesterol,Calculated 90.6 mg/dL (0.0-131.0); VLDL Calculation 24.4 mg/dL (5.00-40.00)
[2021-04-09] MEDS: IPRATROPIUM-ALBUTEROL 3 ML NEB INHALATION SCH ×3 (07:30→16:02)
[2021-04-09 07:53] LABS: Glucose,Whole Blood 81 mg/dL (75-99)
[2021-04-09] MEDS ORDERED: FUROSEMIDE 40 MG TAB PO SCH (09:00)
[2021-04-09] MEDS: HEPARIN SOD,PORK IN 0.45% NACL 25,000 UNIT in 0.45% NACL 1 250ML.BAG IV SCH (09:08)
[2021-04-09] MEDS: metFORMIN 500 MG TAB PO SCH (09:14)
[2021-04-09] MEDS: INSULIN DETEMIR (LEVEMIR) 100 UNIT/ML SYR SQ SCH (09:15)
[2021-04-09] MEDS: ATORVASTATIN 20 MG TAB PO SCH (09:16)
[2021-04-09] MEDS: ASPIRIN 81 MG PO SCH (09:16)
[2021-04-09] MEDS: POTASSIUM CHLORIDE ER 20 MEQ TAB.ER PO SCH (09:16)
[2021-04-09 12:20] LABS: Glucose,Whole Blood 167 mg/dL (75-99)
--- NOTE | 2021-04-09 12:50 | P.PN ---
Subjective HISTORY OF PRESENTING ILLNESS This is a pleasant 76-year-old -[place] female past medical history significant for diabetes mellitus, COPD, hypertension, dyslipidemia, renal cancer s/p right nephrectomy, history of DVT and morbid obesity. 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 We have been asked to see in consultation for elevated troponin. She was brought to the hospital after being found by staff at [facility]. She was stuck in her room in between the bed and dresser. She was unable to get up. She states she has been struggling with generalized weakness and frequent falls over the past couple weeks. She states her falls are frequent and seem to be related to leg weakness. She denies feeling dizzy or lightheaded. However, she also states she cannot remember exactly what happens. There are times when she loses time. She denies chest pain or shortness of breath. She frequently falls asleep during conversation and has to be woken up. Unsure if this lethargy is her baseline or new. She was seen in consultation by Dr. Veliz last week for lower extremity edema and confusion. At that time her edema was thought to be related to medication non-compliance and pulmonary hypertension. No significant heart failure at that time. 04/09/2021 Patient seen and examined sitting on the edge of the bed in no acute distress. She is much more alert and communicative today. She denies any symptoms of shortness of breath, chest pain, dizziness or palpitations. Telemetry tracings have been unremarkable, she is maintaining sinus mechanism. Blood pressure 154/79 heart rate 87 afebrile maintaining oxygen saturation on nasal cannula. CT of the chest revealed bilateral pulmonary emboli with evidence of right ventricular strain, elevated left hemidiaphragm with left basilar atelectasis. She continues to be maintained on a heparin infusion. PHYSICAL EXAMINATION CONSTITUTIONAL:Morbidly obese. Lethargic. No apparent distress. HEENT: Head is normocephalic. Pupils are equal, round. Sclerae anicteric. Mucous membranes of the mouth are moist. No JVD. No carotid bruit. CHEST EXAMINATION: Lungs are clear to auscultation. No chest wall tenderness is noted on palpation or with deep breathing. HEART EXAMINATION: Regular rate and rhythm. S1, S2 heard. No murmurs, gallops or rub. Distant heart sounds. EXTREMITIES: 2+ peripheral pulses, no lower extremity edema and no calf tenderness. ASSESSMENT Possible syncope Altered mental status Generalized weakness Hypomagnesemia Elevated troponin of unclear significance at this time Diabetes mellitus Dyslipidemia Renal cancer s/p nephrectomy History of DVT Morbid obesity, BMI 62 PLAN Transitioned to Eliquis. Discussed with the patient likely long-term lifelong use of anticoagulation due to recent history of DVT but has not progressed to a PE. Clinically stable from a cardiac perspective. Can be discharged to ECF when medically stable. Nurse Practitioner note has been reviewed, I agree with a documented findings and plan of care. Patient was seen and examined. Objective - Vital Signs Vital signs: Vital Signs Temp 97.6 F 04/09/21 07:30 Pulse 82 04/09/21 07:30 Resp 16 04/09/21 07:30 BP 146/74 04/09/21 07:30 Pulse Ox 97 04/09/21 07:30 Intake & Output 04/08/21 04/09/21 04/09/21 18:59 06:59 18:59 Intake Total 921.467 109.25 380.75 Output Total 750 150 150 Balance 171.467 -40.75 230.75 Weight 107.3 kg Intake: IV 20 Invasive Line 2 20 Intake, IV Titration 181.467 109.25 140.75 Amount Heparin Sod,Pork in 0.45% 94.3 109.25 140.75 NaCl 25,000 unit In 0.45 % NaCl 1 250ml.bag @ 15. 436 UNITS/KG/HR 23 mls/hr IV .[id number] [facility] Rx#: [id number] Heparin Sod,Pork in 0.45% 87.167 NaCl 25,000 unit In 0.45 % NaCl 1 250ml.bag @ 8. 8185 UNITS/KG/HR 10 mls/ hr IV .Q24H [facility] Rx#: [id number] Oral 720 240 Output: Urine 750 150 150 Other: Voiding Method External Catheter External Catheter # Voids 1 # Bowel Movements 1 - Labs CBC & Chem 7: 04/08/21 07:55 04/08/21 07:55 Labs: Abnormal Lab Results - Last 24 Hours (Table) 04/08/21 04/08/21 04/08/21 Range/Units 11:53 16:57 19:50 APTT (22.0-30.0) sec POC Glucose (mg/dL) 135 H 260 H 269 H (75-99) mg/dL 04/08/21 04/09/21 Range/Units 20:30 06:38 APTT >200.0 H* >200.0 H* (22.0-30.0) sec POC Glucose (mg/dL) (75-99) mg/dL
[2021-04-09] MEDS ORDERED: APIXABAN 5 MG TAB PO SCH (13:00)
--- NOTE | 2021-04-09 13:07 | P.DS ---
Providers Date of admission: 04/07/21 17:20 Expected date of discharge: 04/09/21 Attending physician: Hector Ram Consults: 04/07/21 17:20 Consult Physician Urgent Consulting Provider: Keith Rowland Consult Reason/Comments: Syncopy, NSTEMI Do you want consulting provider notified?: Yes Primary care physician: [facility] Course: 76-year-old female was admitted for possible syncope. Patient had an echocardiogram which showed a dilated right ventricle. Patient had a normal echocardiogram in the past because the dilated right ventricle there was a concern about PE d-dimer was up and which is elevated and patient had a CT of the chest which showed bilateral pulmonary emboli. Patient is presently on heparin which will be continued if patient is clinically stable patient will be transitioned to Eliquis tomorrow. Patient has multiple falls, PT and OT to evaluate the patient. Patient has a right ventricle strain on the echocardiogram as well as a on the computed tomography scan. Patient becomes symptomatically unstable patient will need EKOS procedure. 04/09/2021 Patient seen and examined sitting on the edge of the bed in no acute distress. She is much more alert and communicative today. She denies any symptoms of shortness of breath, chest pain, dizziness or palpitations. Telemetry tracings have been unremarkable, she is maintaining sinus mechanism. Blood pressure 154/79 heart rate 87 afebrile maintaining oxygen saturation on nasal cannula. CT of the chest revealed bilateral pulmonary emboli with evidence of right ventricular strain, elevated left hemidiaphragm with left basilar atelectasis. She continues to be maintained on a heparin infusion. Transitioned to Eliquis. Discussed with the patient likely long-term lifelong use of anticoagulation due to recent history of DVT but has not progressed to a PE. Clinically stable from a cardiac perspective; ready to be discharged to ECF. Patient Condition at Discharge: Fair Plan - Discharge Summary Discharge Rx Participant: No New Discharge Prescriptions: No Action metFORMIN HCL [Glucophage] 500 mg PO AC-BID #60 tab Potassium Chloride ER [K-Dur 20] 20 meq PO DAILY Furosemide [Lasix] 40 mg PO DAILY Atorvastatin [Lipitor] 20 mg PO DAILY polyethylene glycoL 3350 [Miralax] 17 gm PO DAILY PRN #15 packet PRN Reason: Constipation Insulin Detemir [Levemir Flextouch] 27 units SQ BID Discharge Medication List metFORMIN HCL [Glucophage] 500 mg PO AC-BID #60 tab 05/14/20 [Rx] Atorvastatin [Lipitor] 20 mg PO DAILY 03/28/21 [History] Furosemide [Lasix] 40 mg PO DAILY 03/28/21 [History] Potassium Chloride ER [K-Dur 20] 20 meq PO DAILY 03/28/21 [History] polyethylene glycoL 3350 [Miralax] 17 gm PO DAILY PRN #15 packet 03/29/21 [Rx] Insulin Detemir [Levemir Flextouch] 27 units SQ BID 04/07/21 [History] Follow up Appointment(s)/Referral(s): Kip Bishop III, MD [Primary Care Provider] - 1-2 days
[2021-04-09 13:31] VITALS: BP 126/63; PULSE 84; TEMP 98.6
--- NOTE | 2021-04-23 11:23 | ECHOF ---
Referral Reason:elev trop MEASUREMENTS -------- HEIGHT: 152.4 cm WEIGHT: 113.4 kg BP: IVSd: 1.3 cm (0.6 - 1.1) LVIDd: 2.9 cm (3.9 - 5.3) LVPWd: 1.3 cm (0.6 - 1.1) EDV(Teich): 32 ml IVSs: 1.4 cm LVIDs: 2.1 cm LVPWs: 1.5 cm %IVS Thck: 3 % ESV(Teich): 15 ml EF(Teich): 54 % %FS: 27 % SV(Teich): 17 ml RVIDd: 3.9 cm (< 3.3) TR Vmax: 3.85 m/s TR maxP.21 mmHg RAP: 10.00 mmHg RVSP: 69.21 mmHg FINDINGS -------- Echo done 04/02: Limited Echo for LV Function. Overall left ventricular systolic function is low-normal with, an EF between 50 - 55 %. The right ventricle is severely enlarged. Aortic valve is functionally bicuspid and is mildly thickened. Moderate tricuspid regurgitation present. There is moderate to severe pulmonary hypertension. The right ventricular systolic pressure, as measured by Doppler, is 69.21mmHg. CONCLUSIONS -------- 1. Overall left ventricular systolic function is low-normal with, an EF between 50 - 55 %. 2. The right ventricle is severely enlarged. 3. Aortic valve is functionally bicuspid and is mildly thickened. 4. Moderate tricuspid regurgitation present. 5. There is moderate to severe pulmonary hypertension. 6. The right ventricular systolic pressure, as measured by Doppler, is 69.21mmHg. CONE TRUCKER: Ninfa Culp RDCS
== END 2021-04-09 19:10 | DRG 175 ==
LOC: EC 11:17 → 3SCARD 17:20
PROVIDERS: ADMIT Internal Medicine; ATTEND Internal Medicine
PROC: 05HD33Z Insertion of Infusion Device into Right Cephalic Vein, Percutaneous Approach (ICD-10-PCS; principal; 2021-04-08 21:50)
DX: I26.99 Other pulmonary embolism without acute cor pulmonale (principal); I50.33 Acute on chronic diastolic (congestive) heart failure; Z68.44 Body mass index [BMI] 60.0-69.9, adult; E66.01 Morbid (severe) obesity due to excess calories; Z20.822 Contact with and (suspected) exposure to COVID-19; E11.319 Type 2 diabetes mellitus with unspecified diabetic retinopathy without macular edema; E78.5 Hyperlipidemia, unspecified; E83.42 Hypomagnesemia; I11.0 Hypertensive heart disease with heart failure; J44.9 Chronic obstructive pulmonary disease, unspecified; Z90.5 Acquired absence of kidney; Z85.528 Personal history of other malignant neoplasm of kidney; Z79.899 Other long term (current) drug therapy; Z79.4 Long term (current) use of insulin; H54.8 Legal blindness, as defined in USA; G47.33 Obstructive sleep apnea (adult) (pediatric)
CPT/HCPCS: 36410; 36415; 70450; 71045; 71275; 72125; 72170; 76937; 80048; 80053; 80061; 81001; 82550; 83735; 83880; 84484; 85025; 85027; 85379; 85610; 85730; 87635; 93005; 93308; 94640; 94760; 96360; 99291

== ENCOUNTER 2021-05-16 20:37 | Inpatient (IN) | payer MEDICARE ==
[2021-05-16] MEDS ORDERED: ONDANSETRON 4 MG/2 ML VIAL IVP STA (20:54)
[2021-05-16 21:19] LABS: Basophils # (A) 0.1 k/uL (0-0.2); Basophils % (A) 1 %; Eosinophils # (A) 0.5 k/uL (0-0.7); Eosinophils % (A) 7 %; HCT 35.7 % (34.0-46.0); HGB 11.5 gm/dL (11.4-16.0); Hypochromasia Slight; Lymphocytes # (A) 2.1 k/uL (1.0-4.8); Lymphocytes % (A) 28 %; MCH 28.4 pg (25.0-35.0); MCHC 32.2 g/dL (31.0-37.0); MCV 88.3 fL (80.0-100.0); Mean Platelet Volume 7.3; Monocytes # (A) 0.6 k/uL (0-1.0); Monocytes % (A) 7 %; Neutrophils # (A) 4.1 k/uL (1.3-7.7); Neutrophils % (A) 55 %; Platelet Count 246 k/uL (150-450); RBC 4.04 m/uL (3.80-5.40); RDW 14.7 % (11.5-15.5); WBC 7.6 k/uL (3.8-10.6)
[2021-05-16 21:24] LABS: Albumin 3.5 g/dL (3.5-5.0); Calcium 9.3 mg/dL (8.4-10.2); Magnesium 1.6 mg/dL (1.6-2.3); Potassium 4.6 mmol/L (3.5-5.1); Total Bilirubin 0.5 mg/dL (0.2-1.3); Total Protein 6.5 g/dL (6.3-8.2)
--- NOTE | 2021-05-16 21:26 | XR ---
EXAMINATION TYPE: XR chest 2V DATE OF EXAM: 05/16/2021 COMPARISON: 04/07/2021 HISTORY: Syncope 2 views. There is some infiltrate and atelectasis left lung base and elevation of the left diaphragm. There is coarsening of interstitial markings. There is right shoulder prosthesis. There are chest leads. IMPRESSION: Infiltrate and atelectasis left lung base without change. Coarse lung markings. No obviou s heart failure.
[2021-05-16 21:38] LABS: Partial Thromboplastin Time 21.9 sec (22.0-30.0); Prothrombin Time 10.9 sec (9.0-12.0)
--- NOTE | 2021-05-16 23:04 | ED ---
SOB HPI - General Chief Complaint: Shortness of Breath Stated Complaint: MELISSA Time Seen by Provider: 05/16/21 20:43 Source: patient, EMS Mode of arrival: EMS Limitations: no limitations - History of Present Illness Initial Comments: 76 year-old male patient presents to the emergency department for evaluation of shortness of breath. Reportedly patient was 70% on room air when they arrived to her house. Patient is reporting chest pain. She was admitted in March and found to have bilateral pulmonary embolisms. Patient is supposed to wear oxygen at home, she states she was wearing it, EMS personnel states she was not. Patient reports intermittent cough, no worse than usual. Does have swelling to the lower legs which she states is not new. She denies any fever or chills. States she has had two episodes of vomiting today. No diarrhea. No urinary symptoms. - Related Data Home Medications Medication Instructions Recorded Confirmed Atorvastatin [Lipitor] 20 mg PO DAILY 03/28/21 04/07/21 Furosemide [Lasix] 40 mg PO DAILY 03/28/21 04/07/21 Potassium Chloride ER [K-Dur 20] 20 meq PO DAILY 03/28/21 04/07/21 Insulin Detemir [Levemir Flextouch] 27 units SQ BID 04/07/21 04/07/21 Previous Rx's Medication Instructions Recorded metFORMIN HCL [Glucophage] 500 mg PO AC-BID #60 tab 05/14/20 polyethylene glycoL 3350 [Miralax] 17 gm PO DAILY PRN #15 packet 03/29/21 Apixaban [Eliquis] 10 mg PO BID #60 tab 04/09/21 Aspirin 81 mg PO DAILY chew 04/09/21 Allergies Allergy/AdvReac Type Severity Reaction Status Date / Time rofecoxib [From Vioxx] AdvReac Confusion Verified 05/16/21 20:43 Review of Systems ROS Statement: Those systems with pertinent positive or pertinent negative responses have been documented in the HPI. ROS Other: All systems not noted in ROS Statement are negative. Past Medical History Past Medical History: Cancer, Heart Failure, COPD, Diabetes Mellitus, Eye Disorder, Hyperlipidemia, Hypertension, Pneumonia Additional Past Medical History / Comment(s): Kidney cancer post-nephrectomy on the right, IDDM type II, neuropathy bilateral hands/feet, bilateral diabetic retinopathy with legal blindness in the past but vision better since eye injections, recent diagnosis of DVT of the right lower extremity, bronchitis, home oxygen at 3L/NC ATC, chronic elevation of the left hemidiaphragm, obstructive sleep apnea currently not using device, thoracolumbar kyphoscoliosis, constipation History of Any Multi-Drug Resistant Organisms: None Reported Past Surgical History: Appendectomy, Back Surgery, Hernia Repair, Joint Replacement, Tubal Ligation Additional Past Surgical History / Comment(s): Low back surgery, total R shoulder, R nephrectomy, several abdominal hernia surgeries, colonoscopy Past Anesthesia/Blood Transfusion Reactions: No Reported Reaction Additional Past Anesthesia/Blood Transfusion Reaction / Comment(s): Pt has received blood in past without reaction. Past Psychological History: No Psychological Hx Reported Smoking Status: Never smoker Past Alcohol Use History: None Reported Past Drug Use History: None Reported - Past Family History Mother Family Medical History: Cancer Father Family Medical History: Unable to Obtain Additional Family Medical History / Comment(s): Father when pt was 1 yrs old. General Exam Limitations: no limitations General appearance: alert, in no apparent distress, other (This is a well- developed, well-nourished adult female patient in no acute distress. Vital signs upon presentation temperature 98.1F, pulse 110, respirations 21, blood pressure 134/98, pulse ox 94% on room air.) ENT exam: Present: normal exam, normal oropharynx, mucous membranes moist Respiratory exam: Present: respiratory distress (Mild), decreased breath sounds. Absent: normal lung sounds bilaterally, wheezes, rales, rhonchi, stridor Cardiovascular Exam: Present: normal rhythm, tachycardia, normal heart sounds. Absent: systolic murmur, diastolic murmur, rubs, gallop, clicks GI/Abdominal exam: Present: soft, normal bowel sounds. Absent: distended, tenderness, guarding, rebound, rigid Neurological exam: Present: alert, oriented X3, CN II-XII intact Psychiatric exam: Present: normal affect, normal mood Skin exam: Present: warm, dry, intact, normal color. Absent: rash Course Vital Signs 05/16/21 05/16/21 05/16/21 20:38 20:44 21:00 Temperature 98.1 F Pulse Rate 110 H 110 H Respiratory 21 21 20 Rate Blood Pressure 134/98 O2 Sat by Pulse 94 L 95 Oximetry 05/16/21 05/16/21 22:00 22:30 Temperature Pulse Rate 99 Respiratory 20 Rate Blood Pressure 106/28 130/57 O2 Sat by Pulse 97 Oximetry Medical Decision Making - Medical Decision Making 76 old female patient presents the emergency department today for evaluation of shortness of breath. Was 70% on room air upon EMS arrival to her home. Physical examination did reveal diminished lung sounds bilaterally. Patient was placed on 3 L nasal cannula upon arrival, she maintained saturation between 96 and 99%. EKG was obtained and showed sinus tachycardia with rate of 102. Chest x-ray showed no changes or abnormalities currently. Labs reviewed and were unremarkable, troponin 0.030. She does report chest pain. Acute episode of shortness of breath and hypoxia could be due to patient not wearing oxygen at home. She'll be admitted to the hospital for observation, will obtain serial troponins. She is taking eliquis. Cardiology will be consulted. Discussed case with my attending Dr. Kelly. - Lab Data Result diagrams: 05/16/21 20:56 05/16/21 20:56 Lab Results 05/16/21 05/16/21 05/16/21 Range/Units 20:56 20:56 20:56 WBC 7.6 (3.8-10.6) k/uL RBC 4.04 (3.80-5.40) m/uL Hgb 11.5 (11.4-16.0) gm/dL Hct 35.7 (34.0-46.0) % MCV 88.3 (80.0-100.0) fL MCH 28.4 (25.0-35.0) pg MCHC 32.2 (31.0-37.0) g/dL RDW 14.7 (11.5-15.5) % Plt Count 246 (150-450) k/uL MPV 7.3 Neutrophils % 55 % Lymphocytes % 28 % Monocytes % 7 % Eosinophils % 7 % Basophils % 1 % Neutrophils # 4.1 (1.3-7.7) k/uL Lymphocytes # 2.1 (1.0-4.8) k/uL Monocytes # 0.6 (0-1.0) k/uL Eosinophils # 0.5 (0-0.7) k/uL Basophils # 0.1 (0-0.2) k/uL Hypochromasia Slight PT 10.9 (9.0-12.0) sec INR 1.0 (<1.2) APTT 21.9 L (22.0-30.0) sec Sodium 137 (137-145) mmol/L Potassium 4.6 (3.5-5.1) mmol/L Chloride 99 (98-107) mmol/L Carbon Dioxide 30 (22-30) mmol/L Anion Gap 8 mmol/L BUN 25 H (7-17) mg/dL Creatinine 0.99 (0.52-1.04) mg/dL Est GFR (CKD-EPI)AfAm 64 (>60 ml/min/1.73 sqM) Est GFR (CKD-EPI)NonAf 55 (>60 ml/min/1.73 sqM) Glucose 195 H (74-99) mg/dL Plasma Lactic Acid Frankie (0.7-2.0) mmol/L Calcium 9.3 (8.4-10.2) mg/dL Magnesium 1.6 (1.6-2.3) mg/dL Total Bilirubin 0.5 (0.2-1.3) mg/dL AST 15 (14-36) U/L ALT 6 (4-34) U/L Alkaline Phosphatase 50 (38-126) U/L Troponin I (0.000-0.034) ng/mL NT-Pro-B Natriuret Pep pg/mL Total Protein 6.5 (6.3-8.2) g/dL Albumin 3.5 (3.5-5.0) g/dL 05/16/21 05/16/21 05/16/21 Range/Units 20:56 20:56 20:56 WBC (3.8-10.6) k/uL RBC (3.80-5.40) m/uL Hgb (11.4-16.0) gm/dL Hct (34.0-46.0) % MCV (80.0-100.0) fL MCH (25.0-35.0) pg MCHC (31.0-37.0) g/dL RDW (11.5-15.5) % Plt Count (150-450) k/uL MPV Neutrophils % % Lymphocytes % % Monocytes % % Eosinophils % % Basophils % % Neutrophils # (1.3-7.7) k/uL Lymphocytes # (1.0-4.8) k/uL Monocytes # (0-1.0) k/uL Eosinophils # (0-0.7) k/uL Basophils # (0-0.2) k/uL Hypochromasia PT (9.0-12.0) sec INR (<1.2) APTT (22.0-30.0) sec Sodium (137-145) mmol/L Potassium (3.5-5.1) mmol/L Chloride (98-107) mmol/L Carbon Dioxide (22-30) mmol/L Anion Gap mmol/L BUN (7-17) mg/dL Creatinine (0.52-1.04) mg/dL Est GFR (CKD-EPI)AfAm (>60 ml/min/1.73 sqM) Est GFR (CKD-EPI)NonAf (>60 ml/min/1.73 sqM) Glucose (74-99) mg/dL Plasma Lactic Acid Frankie 1.2 (0.7-2.0) mmol/L Calcium (8.4-10.2) mg/dL Magnesium (1.6-2.3) mg/dL Total Bilirubin (0.2-1.3) mg/dL AST (14-36) U/L ALT (4-34) U/L Alkaline Phosphatase (38-126) U/L Troponin I 0.030 (0.000-0.034) ng/mL NT-Pro-B Natriuret Pep 1120 pg/mL Total Protein (6.3-8.2) g/dL Albumin (3.5-5.0) g/dL - EKG Data -: EKG Interpreted by [place] EKG Comments: EKG obtained at 2042 shows sinus tachycardia the right bundle branch block, left posterior fascicular block, ventricular rate is 102, NE interval 172, QR sikh 122, QT 3:30, QTC 4:30. No evidence of ST elevation or depression. Changes appear similar to previous EKG from March. - Radiology Data Radiology results: report reviewed, image reviewed Two-view x-ray of the chest is obtained. Report was reviewed in its entirety. Impression by Dr. Solis shows infiltrate and atelectasis left lung base without change. Coarse lung markings. No obvious heart failure. Disposition Clinical Impression: Chest pain, Shortness of breath Disposition: ADMITTED IP TO THIS [facility] Condition: Serious Referrals: Kip Bishop III, MD [Primary Care Provider] - 1-2 days Decision to Admit Reason: Admit from EC Decision Date: 05/16/21 Decision Time: 23:15
[2021-05-16] MEDS ORDERED: NALOXONE 0.4 MG/ML 1 ML VIAL IV PRN (23:16)
[2021-05-16] MEDS ORDERED: ONDANSETRON 4 MG/2 ML VIAL IVP PRN (23:16)
[2021-05-16] MEDS ORDERED: MORPHINE SULFATE 4 MG/ML SYRINGE IV PRN (23:16)
[2021-05-16 23:57] LABS: Glucose,Whole Blood 144 mg/dL (75-99)
[2021-05-17] MEDS ORDERED: IPRATROPIUM-ALBUTEROL 3 ML NEB INHALATION STA (03:18)
[2021-05-17] MEDS ORDERED: FUROSEMIDE 10 MG/ML 4 ML VIAL IV STA (04:02)
[2021-05-17 07:58] LABS: Glucose,Whole Blood 246 mg/dL (75-99)
[2021-05-17] MEDS ORDERED: polyethylene glycoL 3350 17 GM POWD.PACK PO PRN (10:37)
[2021-05-17 10:39] LABS: Appearance,Urine Clear (Clear); Bilirubin,Urine Negative (Negative); Blood,Urine Negative (Negative); Color,Urine Light Yellow; Glucose,Urine (UA) Negative (Negative); Ketones,Urine Negative (Negative); Leukocyte Esterase,Urine Negative (Negative); Nitrite,Urine Negative (Negative); Protein,Urine Negative (Negative); Specific Gravity,Urine 1.006 (1.001-1.035); Urobilinogen,Urine <2.0 mg/dL (<2.0)
[2021-05-17] MEDS: INSULIN DETEMIR (LEVEMIR) 100 UNIT/ML SYR SQ SCH ×2 (11:36→20:06)
[2021-05-17] MEDS: FUROSEMIDE 40 MG TAB PO SCH (11:37)
[2021-05-17] MEDS: APIXABAN 5 MG TAB PO SCH ×2 (11:37→20:06)
--- NOTE | 2021-05-17 11:38 | P.CRDCN ---
History of Present Illness Consult date: 05/17/21 Consult reason: shortness of breath History of present illness: The patient is a 76-year-old female extensive past medical history including recent hospitalization for bilateral pulmonary emboli. The patient called EMS for increased shortness of breath. She was noted not to be wearing oxygen at the time of their arrival. SpO2 at that time was in the low 70s. According to ER notes she was also experiencing some nausea and vomiting earlier that day. The patient was interviewed and examined lying in bed. Patient is confused trying to get out of the bed, stating she needs to urinate. The patient has a catheter and the patient's oxygen was off at that time. DIAGNOSTICS: EKG shows sinus tachycardia with heart rate at 102. 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 Unchanged. Chest x-ray shows left atelectasis and infiltrate; consistent with previous imaging. Coarsening of interstitial markings noted. Vital signs: Blood pressure 114/56, pulse rate 105, temp 97.4F, respiratory rate 22, SpO2 94% on 6 L nasal cannula Laboratory data: WBC 7.6, hemoglobin 11.5, hematocrit 35.7, platelet 246, sodium 137, potassium 4.6, BUN 25, creatinine 0.99, BNP 1120, AST 15, ALT 6, magnesium 1.6, troponin 0.03, 0.01, urine studies unremarkable Echocardiogram in March showed EF at 50-55% with pulmonary hypertension PAST MEDICAL HISTORY: Recent pulmonary embolism in March 2021, diabetes COPD, hypertension, dyslipidemia, renal cancer status post right nephrectomy, DVT, morbid obesity REVIEW OF SYSTEMS: Limited due to altered mental status. No chest pain. Positive for shortness of breath PHYSICAL EXAMINATION: This is a 76 year-old female in no apparent distress at the time of my examination. HEENT: Head is atraumatic, normocephalic. Pupils are equal, round. Sclerae anicteric. Conjunctivae are clear. Mucous membranes of the mouth are moist. Neck is supple. There is no jugular venous distention. No carotid bruit is heard. CHEST EXAMINATION: Bilateral inspiratory wheezes. No chest wall tenderness is noted on palpation or with deep breathing. HEART EXAMINATION: Heart regular rate and rhythm. S1, S2 heard. No murmurs, gallops or rub. ABDOMEN: Soft, nontender. Bowel sounds are heard. No organomegaly noted. EXTREMITIES: Weak peripheral pulses with no evidence of peripheral edema and no calf tenderness noted. NEUROLOGIC EXAMINATION: Patient is awake, confused. FINAL ASSESSMENT AND PLAN: Hypoxic respiratory failure, on home oxygen Abnormal troponins, mildly elevated, no rise and fall pattern Altered mental status History of diabetes History of dyslipidemia History of renal cancer status post nephrectomy History of DVT History of pulmonary embolism Obesity, BMI 47 PLAN: Continue current medication regimen No further recommendations at this time Further recommendations clinical course The patient has been seen and evaluated. Plan of care has been reviewed and agreed upon by Dr Cisneros. Past Medical History Past Medical History: Cancer, Heart Failure, COPD, Diabetes Mellitus, Eye Disorder, Hyperlipidemia, Hypertension, Pneumonia Additional Past Medical History / Comment(s): Kidney cancer post-nephrectomy on the right, IDDM type II, neuropathy bilateral hands/feet, bilateral diabetic retinopathy with legal blindness in the past but vision better since eye injections, recent diagnosis of DVT of the right lower extremity, bronchitis, home oxygen at 3L/[place] ATC, chronic elevation of the left hemidiaphragm, obstructive sleep apnea currently not using device, thoracolumbar kyphoscoliosis, constipation History of Any Multi-Drug Resistant Organisms: None Reported Past Surgical History: Appendectomy, Back Surgery, Hernia Repair, Joint Replacement, Tubal Ligation Additional Past Surgical History / Comment(s): Low back surgery, total R shoulder, R nephrectomy, several abdominal hernia surgeries, colonoscopy Past Anesthesia/Blood Transfusion Reactions: No Reported Reaction Additional Past Anesthesia/Blood Transfusion Reaction / Comment(s): Pt has received blood in past without reaction. Past Psychological History: No Psychological Hx Reported Additional Psychological History / Comment(s): Pt resides in an apartment at [facility]. She has home oxygen at 6L/NC ATC. She manages her own medications. She uses a walker or scooter. She gets places by [facility] bus. Smoking Status: Never smoker Past Alcohol Use History: None Reported Past Drug Use History: None Reported - Past Family History Mother Family Medical History: Cancer Father Family Medical History: Unable to Obtain Additional Family Medical History / Comment(s): Father when pt was 1 yrs old. Medications and Allergies Home Medications Medication Instructions Recorded Confirmed Type metFORMIN HCL [Glucophage] 500 mg PO AC-BID #60 tab 05/14/20 05/17/21 Rx Atorvastatin [Lipitor] 20 mg PO DAILY 03/28/21 05/17/21 History Furosemide [Lasix] 40 mg PO DAILY 03/28/21 05/17/21 History Potassium Chloride ER [K-Dur 20] 20 meq PO DAILY 03/28/21 05/17/21 History polyethylene glycoL 3350 [Miralax] 17 gm PO DAILY PRN #15 packet 03/29/21 05/17/21 Rx Insulin Detemir [Levemir Flextouch] 27 units SQ BID 04/07/21 05/17/21 History Aspirin 81 mg PO DAILY chew 04/09/21 05/17/21 Rx Apixaban [Eliquis] 5 mg PO BID 05/17/21 05/17/21 History Azithromycin [Zithromax Z-pack (6 See Taper PO DIRECTED 05/17/21 05/17/21 History tabs)] Cetirizine HCl 10 mg PO DAILY 05/17/21 05/17/21 History Sertraline [Zoloft] 50 mg PO DAILY 05/17/21 05/17/21 History Allergies Allergy/AdvReac Type Severity Reaction Status Date / Time rofecoxib [From Vioxx] AdvReac Confusion Verified 05/17/21 10:20 Physical Exam Vitals: Vital Signs Temp Pulse Pulse Resp BP BP Pulse Ox 05/17/21 08:00 22 05/17/21 07:51 97.4 F L 105 H 22 114/56 94 L 05/17/21 04:58 97.3 F L 101 H 20 106/68 95 05/17/21 04:55 101 H 20 05/17/21 03:42 104 H 05/17/21 03:30 103 H 05/17/21 02:00 98.3 F 109 H 17 122/73 93 L 05/17/21 01:20 17 05/17/21 01:11 103 H 17 05/16/21 23:55 98.9 F 103 H 17 143/81 98 05/16/21 23:25 98.5 F 101 H 20 107/68 96 05/16/21 22:30 130/57 05/16/21 22:00 99 20 106/28 97 05/16/21 21:00 110 H 20 95 05/16/21 20:44 21 05/16/21 20:38 98.1 F 110 H 21 134/98 94 L Intake and Output 05/16/21 05/17/21 05/17/21 22:59 06:59 14:59 Other: Voiding Method External Catheter Weight 113.398 kg 113.398 kg Results 05/16/21 20:56 05/16/21 20:56 Cardiac Enzymes 05/16/21 05/16/21 05/17/21 Range/Units 20:56 20:56 04:26 AST 15 (14-36) U/L Troponin I 0.030 0.024 (0.000-0.034) ng/mL 05/17/21 Range/Units 07:25 AST (14-36) U/L Troponin I 0.019 (0.000-0.034) ng/mL Coagulation 05/16/21 Range/Units 20:56 PT 10.9 (9.0-12.0) sec APTT 21.9 L (22.0-30.0) sec CBC 05/16/21 Range/Units 20:56 WBC 7.6 (3.8-10.6) k/uL RBC 4.04 (3.80-5.40) m/uL Hgb 11.5 (11.4-16.0) gm/dL Hct 35.7 (34.0-46.0) % Plt Count 246 (150-450) k/uL Comprehensive Metabolic Panel 05/16/21 Range/Units 20:56 Sodium 137 (137-145) mmol/L Potassium 4.6 (3.5-5.1) mmol/L Chloride 99 (98-107) mmol/L Carbon Dioxide 30 (22-30) mmol/L BUN 25 H (7-17) mg/dL Creatinine 0.99 (0.52-1.04) mg/dL Glucose 195 H (74-99) mg/dL Calcium 9.3 (8.4-10.2) mg/dL AST 15 (14-36) U/L ALT 6 (4-34) U/L Alkaline Phosphatase 50 (38-126) U/L Total Protein 6.5 (6.3-8.2) g/dL Albumin 3.5 (3.5-5.0) g/dL Current Medications Generic Name Dose Route Start Last Admin Trade Name Freq PRN Reason Stop Dose Admin Albuterol/Ipratropium 3 ml 05/17/21 10:47 Ipratropium-Albuterol 3 Ml Neb INHALATION RT-QID PRN Shortness Of Breath Or Wheezing Apixaban 5 mg 05/17/21 10:45 Apixaban 5 Mg Tab PO BID [facility] Protocol Aspirin 81 mg 05/18/21 09:00 Aspirin 81 Mg PO DAILY [facility] Atorvastatin Calcium 20 mg 05/18/21 09:00 Atorvastatin 20 Mg Tab PO DAILY [facility] Furosemide 40 mg 05/17/21 10:45 Furosemide 40 Mg Tab PO DAILY [facility] Insulin Detemir 27 unit 05/17/21 11:00 Insulin Detemir (Levemir) 100 Unit/Ml Syr SQ BID [facility] Morphine Sulfate 4 mg 05/16/21 23:16 Morphine Sulfate 4 Mg/Ml Syringe IV Q4HR PRN Severe Pain Naloxone HCl 0.2 mg 05/16/21 23:16 Naloxone 0.4 Mg/Ml 1 Ml Vial IV Q2M PRN Opioid Reversal Ondansetron HCl 4 mg 05/16/21 23:16 Ondansetron 4 Mg/2 Ml Vial IVP Q8HR PRN Nausea And Vomiting Polyethylene Glycol 17 gm 05/17/21 10:37 Polyethylene Glycol 3350 17 Gm Powd.Pack PO DAILY PRN Constipation Sertraline HCl 50 mg 05/18/21 09:00 Sertraline 50 Mg Tab PO DAILY [facility] Intake and Output 05/16/21 05/17/21 05/17/21 22:59 06:59 14:59 Other: Voiding Method External Catheter Weight 113.398 kg 113.398 kg 05/16/21 20:56 05/16/21 20:56
[2021-05-17 11:59] LABS: Glucose,Whole Blood 197 mg/dL (75-99)
[2021-05-17] MEDS: IPRATROPIUM-ALBUTEROL 3 ML NEB INHALATION PRN ×2 (12:07→16:27)
[2021-05-17 17:00] LABS: Glucose,Whole Blood 333 mg/dL (75-99)
[2021-05-17] MEDS: INSULIN ASPART (NovoLOG) 100 UNIT/ML VIAL SQ SCH ×2 (17:36→20:07)
[2021-05-17 20:04] LABS: Glucose,Whole Blood 308 mg/dL (75-99)
--- NOTE | 2021-05-18 01:02 | P.HPIM ---
History of Present Illness H&P Date: 05/17/21 Chief Complaint: Hypoxia Patient is a 76-year-old female with a known history of hypertension, hyperlipidemia, diabetes type 2 insulin-dependent, bilateral diabetic peripheral neuropathy obstructive sleep apnea currently not using CPAP, thoracolumbar kyphoscoliosis, and recent history of PE with right ventricular strain and on anticoagulation with Eliquis was sent to ER from shelter for evaluation of shortness of. Patient was saturating at 70% on room air. Apparently patient has not been using oxygen which she is supposed to wear. Otherwise patient denied any cough or sputum production. No fever no chills. No nausea vomiting abdominal pain or diarrhea. No recent illnesses. No dysuria or hematuria. Patient was discharged from the hospital on 04/09/2021 and was diagnosed with bilateral pulmonary embolism. Patient was heparin drip transition to Eliquis. 2D echocardiogram showed right ventricular strain at the time. Chest x-ray showed infiltrate and atelectasis lung base without change. Coarse lung markings. No obvious heart failure. EKG showed sinus tachycardia. Laboratory pressure WBC 7.6 hemoglobin 11.5 and platelets 246 Sodium 137 potassium 4.6 BUN 25 creatinine 0.99 blood sugar 195 Liver enzymes are not elevated magnesium 1.6 Troponin 0 0.030, 0.024 and 0.019 proBNP 1120 Patient is on 6 L oxygen via nasal cannula at home. Review of Systems Constitutional: Patient denies any fever or chills . No generalized weakness or weight loss. Abdomen: Patient denied nausea vomiting and diarrhea and abdominal pain. Cardiovascular: Patient denies any chest pain or short of breath no palpitations . Respiratory: patient denied any cough is from production. No shortness of breath Neurologic: Patient denied any numbness or tingling headache. Musculoskeletal: Patient denies any complaints of joint swelling or deformity. Skin: Negative Psychiatric: Negative Endocrine: No heat or cold intolerance. No recent weight gain. Genitourinary: No dysuria or hematuria. All other 14 point ROS negative except the above Past Medical History Past Medical History: Cancer, Heart Failure, COPD, Diabetes Mellitus, Eye Disorder, Hyperlipidemia, Hypertension, Pneumonia Additional Past Medical History / Comment(s): Kidney cancer post-nephrectomy on the right, IDDM type II, neuropathy bilateral hands/feet, bilateral diabetic retinopathy with legal blindness in the past but vision better since eye injections, recent diagnosis of DVT of the right lower extremity, bronchitis, home oxygen at 3L/NC ATC, chronic elevation of the left hemidiaphragm, obstructive sleep apnea currently not using device, thoracolumbar kyphoscoliosis, constipation History of Any Multi-Drug Resistant Organisms: None Reported Past Surgical History: Appendectomy, Back Surgery, Hernia Repair, Joint Repla cement, Tubal Ligation Additional Past Surgical History / Comment(s): Low back surgery, total R shoulder, R nephrectomy, several abdominal hernia surgeries, colonoscopy Past Anesthesia/Blood Transfusion Reactions: No Reported Reaction Additional Past Anesthesia/Blood Transfusion Reaction / Comment(s): Pt has received blood in past without reaction. Past Psychological History: No Psychological Hx Reported Additional Psychological History / Comment(s): Pt resides in an apartment at [facility]. She has home oxygen at 6L/NC ATC. She manages her own medications. She uses a walker or scooter. She gets places by [facility] bus. Smoking Status: Never smoker Past Alcohol Use History: None Reported Past Drug Use History: None Reported - Past Family History Mother Family Medical History: Cancer Father Family Medical History: Unable to Obtain Additional Family Medical History / Comment(s): Father when pt was 1 yrs old. Medications and Allergies Home Medications Medication Instructions Recorded Confirmed Type metFORMIN HCL [Glucophage] 500 mg PO AC-BID #60 tab 05/14/20 05/17/21 Rx Atorvastatin [Lipitor] 20 mg PO DAILY 03/28/21 05/17/21 History Furosemide [Lasix] 40 mg PO DAILY 03/28/21 05/17/21 History Potassium Chloride ER [K-Dur 20] 20 meq PO DAILY 03/28/21 05/17/21 History polyethylene glycoL 3350 [Miralax] 17 gm PO DAILY PRN #15 packet 03/29/21 05/17/21 Rx Insulin Detemir [Levemir Flextouch] 27 units SQ BID 04/07/21 05/17/21 History Aspirin 81 mg PO DAILY chew 04/09/21 05/17/21 Rx Apixaban [Eliquis] 5 mg PO BID 05/17/21 05/17/21 History Azithromycin [Zithromax Z-pack (6 See Taper PO DIRECTED 05/17/21 05/17/21 History tabs)] Cetirizine HCl 10 mg PO DAILY 07/05/21 07/05/21 History Sertraline [Zoloft] 50 mg PO DAILY 05/17/21 05/17/21 History Allergies Allergy/AdvReac Type Severity Reaction Status Date / Time rofecoxib [From Vioxx] AdvReac Confusion Verified 05/17/21 10:20 Physical Exam Vitals: Vital Signs Temp Pulse Pulse Resp BP BP Pulse Ox 05/17/21 08:00 22 05/17/21 07:51 97.4 F L 105 H 22 114/56 94 L 05/17/21 04:58 97.3 F L 101 H 20 106/68 95 05/17/21 04:55 101 H 20 05/17/21 03:42 104 H 05/17/21 03:30 103 H 05/17/21 02:00 98.3 F 109 H 17 122/73 93 L 05/17/21 01:20 17 05/17/21 01:11 103 H 17 05/16/21 23:55 98.9 F 103 H 17 143/81 98 05/16/21 23:25 98.5 F 101 H 20 107/68 96 05/16/21 22:30 130/57 05/16/21 22:00 99 20 106/28 97 05/16/21 21:00 110 H 20 95 05/16/21 20:44 21 05/16/21 20:38 98.1 F 110 H 21 134/98 94 L Intake and Output 05/16/21 05/17/21 05/17/21 22:59 06:59 14:59 Other: Voiding Method External Catheter Weight 113.398 kg 113.398 kg PHYSICAL EXAMINATION: Patient is lying in the bed comfortably, no acute distress, awake alert and oriented.. HEENT: Normocephalic. Neck is supple. Pupils reactive. Nostrils clear. Oral cavity is moist. Neck reveals no JVD, carotid bruits, or thyromegaly. CHEST EXAMINATION: Trachea is central. Symmetrical expansion. Lung jimenez clear to auscultation and percussion. CARDIAC: Normal S1, S2 with no gallops. No murmurs ABDOMEN: Soft. Bowel sounds normal. No organomegaly. No abdominal bruits. Extremities: reveal no edema. No clubbing or cyanosis Neurologically awake, alert, oriented x2-3 with well-coordinated movements. No focal deficits noted Skin: No rash or skin lesions. Psychiatric: Coperative. Musculoskeletal: No joint swelling or deformity. Results CBC & Chem 7: 05/16/21 20:56 05/16/21 20:56 Labs: Abnormal Lab Results - Last 24 Hours (Table) 05/16/21 05/16/21 05/16/21 Range/Units 20:56 20:56 23:56 APTT 21.9 L (22.0-30.0) sec BUN 25 H (7-17) mg/dL Glucose 195 H (74-99) mg/dL POC Glucose (mg/dL) 144 H (75-99) mg/dL 05/17/21 Range/Units 07:57 APTT (22.0-30.0) sec BUN (7-17) mg/dL Glucose (74-99) mg/dL POC Glucose (mg/dL) 246 H (75-99) mg/dL Thrombosis Risk Factor Assmnt - DVT/VTE Prophylaxis DVT/VTE Prophylaxis: Pharmacologic Prophylaxis ordered - Choose All That Apply Each Factor Represents 1 point: Abnormal pulmonary function (COPD), Obesity (BMI >25) Each Risk Factor Represents 3 Points: Age 75 years or older Thrombosis Risk Factor Assessment Total Risk Factor Score: 5 Thrombosis Risk Factor Assessment Level: High Risk Assessment and Plan Assessment: Acute on chronic hyper respiratory failure secondary to noncompliance with oxygen use. Chronic hypoxic respiratory failure exact etiology unknown. Recent PE and history of DVT Altered mental status possible metabolic neuropathy improved now Hypertension Hyperglycemia with uncontrolled diabetes type 2 insulin-dependent History of renal cancer status post right nephrectomy Hyperlipidemia Morbid obesity BMI 47.2 DVT prophylaxis patient is already on Eliquis Plan: Patient will be continued oxygen supplementation and started back on anticoagulation with Eliquis. Patient was encouraged with incentive spirometry and deep breathing exercises. Continue to titrate down oxygen. Exact etiology for hypoxic respiratory failure is not known at this time. Continue to titrate down. Continue with insulin regimen with sliding scale. Start on duo nebs as needed. Continue with aspirin statins and cardiology is on board. Continue to follow closely. Time with Patient: Greater than 30
[2021-05-18 06:19] LABS: Glucose,Whole Blood 83 mg/dL (75-99)
[2021-05-18] MEDS: INSULIN ASPART (NovoLOG) 100 UNIT/ML VIAL SQ SCH ×4 (06:20→20:54)
[2021-05-18] MEDS: IPRATROPIUM-ALBUTEROL 3 ML NEB INHALATION PRN ×3 (07:00→15:54)
[2021-05-18] MEDS: ATORVASTATIN 20 MG TAB PO SCH (08:13)
[2021-05-18] MEDS: APIXABAN 5 MG TAB PO SCH ×2 (08:13→20:54)
[2021-05-18] MEDS: ASPIRIN 81 MG PO SCH (08:13)
[2021-05-18] MEDS: INSULIN DETEMIR (LEVEMIR) 100 UNIT/ML SYR SQ SCH ×2 (08:13→21:01)
[2021-05-18] MEDS: FUROSEMIDE 40 MG TAB PO SCH (08:13)
[2021-05-18] MEDS: SERTRALINE 50 MG TAB PO SCH (08:13)
[2021-05-18] MEDS: MAGNESIUM SULFATE-D5W PMX 1 GM in DEXTROSE/WATER 1 100ML.BAG IVPB SCH ×2 (08:16→09:48)
[2021-05-18 08:23] LABS: Albumin 3.6 g/dL (3.5-5.0); Calcium 9.2 mg/dL (8.4-10.2); Potassium 4.7 mmol/L (3.5-5.1); Total Bilirubin 0.4 mg/dL (0.2-1.3); Total Protein 6.7 g/dL (6.3-8.2)
[2021-05-18 09:28] LABS: T4, Free (Free Thyroxine) 1.66 ng/dL (0.78-2.19)
[2021-05-18 12:12] LABS: Glucose,Whole Blood 176 mg/dL (75-99)
--- NOTE | 2021-05-18 13:01 | P.PN ---
Subjective Progress Note Date: 05/18/21 HISTORY OF PRESENT ILLNESS: This is a 76-year-old female who was diagnosed with bilateral pulmonary embolisms at the end of March 2021. Patient was brought to the hospital secondary to hypoxia. She is on home O2. However she was not wearing it and her oxygen saturations were apparently it in the 70s on room air. Patient examined this morning at the bedside. She denies chest pain or pressure. Denies shortness of breath. Patient is confused at the time of examination. Vital signs are stable. Echocardiogram completed in March 2021 revealed ejection fraction 50-55% PHYSICAL EXAM: VITAL SIGNS: Reviewed. GENERAL: Well-developed in no acute distress. NECK: Supple. No JVD or thyromegaly LUNGS: Respirations even and unlabored. Lungs essentially clear to auscultation bilaterally. HEART: Regular rate and rhythm. S1 and S2 heard. EXTREMITIES: Normal range of motion. No clubbing or cyanosis. Peripheral pulses intact. No lower extremity edema ASSESSMENT: Acute on chronic hypoxic respiratory failure, on home oxygen Recent diagnosis of bilateral pulmonary emboli Abnormal troponins, no rise and fall pattern, possibly secondary to hypoxia Altered mental status History of renal cancer status post nephrectomy History of DVT Diabetes Hyperlipidemia Morbid obesity: BMI 47.2 PLAN: Continue anticoagulation with Eliquis Continue additional cardiac medications Repeat 2-D echo Further recommendations pending patient course Nurse practitioner note has been reviewed by physician. Signing provider agrees with the documented findings, assessment, and plan of care. Objective - Vital Signs Vital signs: Vital Signs Temp 98.6 F 05/18/21 11:33 Pulse 100 05/18/21 11:33 Resp 16 05/18/21 11:33 BP 110/68 05/18/21 11:33 Pulse Ox 98 05/18/21 11:33 Intake & Output 05/17/21 05/18/21 05/18/21 18:59 06:59 18:59 Intake Total 444 10 180 Output Total 450 425 Balance 444 -440 -245 Intake: IV 10 Invasive Line 1 10 Oral 444 180 Output: Urine 450 425 Other: Voiding Method Indwelling Catheter Indwelling Catheter - Labs CBC & Chem 7: 05/16/21 20:56 05/18/21 07:18 Labs: Abnormal Lab Results - Last 24 Hours (Table) 07/05/21 07/05/21 07/06/21 Range/Units 16:59 20:02 07:18 Chloride 96 L (98-107) mmol/L Carbon Dioxide 37 H (22-30) mmol/L BUN 24 H (7-17) mg/dL Glucose 101 H (74-99) mg/dL POC Glucose (mg/dL) 333 H 308 H (75-99) mg/dL TSH 0.129 L (0.465-4.680) mIU/L 05/18/21 Range/Units 12:06 Chloride (98-107) mmol/L Carbon Dioxide (22-30) mmol/L BUN (7-17) mg/dL Glucose (74-99) mg/dL POC Glucose (mg/dL) 176 H (75-99) mg/dL TSH (0.465-4.680) mIU/L
[2021-05-18 16:35] LABS: Glucose,Whole Blood 199 mg/dL (75-99)
[2021-05-18 19:11] LABS: Hemoglobin A1C 10.4 % (4.0-6.0)
[2021-05-18 19:44] LABS: Glucose,Whole Blood 150 mg/dL (75-99)
--- NOTE | 2021-05-18 22:16 | P.PN ---
Subjective Progress Note Date: 05/18/21 Principal diagnosis: Acute on chronic hyper respiratory failure secondary to noncompliance with oxygen use. Chronic hypoxic and Hypercapnic respiratory failure Likely due to COPD and obesity hypoventilation.. Recent PE and history of DVT Patient is a 76-year-old female with a known history of hypertension, hyperlipidemia, diabetes type 2 insulin-dependent, bilateral diabetic peripheral neuropathy obstructive sleep apnea currently not using CPAP, thoracolumbar kyphoscoliosis, and recent history of PE with right ventricular strain and on anticoagulation with Eliquis was sent to ER from custodial for evaluation of shortness of breath. Patient was saturating at 70% on room air. Apparently patient has not been using oxygen which she is supposed to wear. Otherwise pat ient denied any cough or sputum production. No fever no chills. No nausea vomiting abdominal pain or diarrhea. No recent illnesses. No dysuria or hematuria. Patient was discharged from the hospital on 04/09/2021 and was diagnosed with bilateral pulmonary embolism. Patient was heparin drip transition to Eliquis. 2D echocardiogram showed right ventricular strain at the time. Chest x-ray showed infiltrate and atelectasis lung base without change. Coarse lung markings. No obvious heart failure. EKG showed sinus tachycardia. Laboratory pressure WBC 7.6 hemoglobin 11.5 and platelets 246 Sodium 137 potassium 4.6 BUN 25 creatinine 0.99 blood sugar 195 Liver enzymes are not elevated magnesium 1.6 Troponin 0 0.030, 0.024 and 0.019 proBNP 1120 Patient is on 6 L oxygen via nasal cannula on admission 05/18/2021 Patient is currently sitting in the bed comfortably. Awake alert and oriented x3. Tolerating oral diet. Currently on oxygen via nasal cannula titrating down to 3 L. Patient is usually on 2 L at home. Denied any complaints of chest pain or shortness with. No cough or sputum produ ction. Patient was started back on anticoagulation with Eliquis. 2D echocardiogram in March 2021 showed normal EF. Laboratory showed sodium 138 potassium 4.7 chloride 96 and bicarb 37, BUN 24 and creatinine 0.99 A1c 10.4 TSH 0.129 and free T4 level is normal 1.66 Patient is being continued Lasix 40 mg daily and new symptoms 1. Current medications reviewed. Objective - Vital Signs Vital signs: Vital Signs Temp 98.6 F 05/18/21 15:05 Pulse 96 05/18/21 16:07 Resp 16 07/06/21 15:05 BP 121/76 05/18/21 15:05 Pulse Ox 95 05/18/21 15:05 Intake & Output 05/18/21 05/18/21 05/19/21 06:59 18:59 06:59 Intake Total 10 180 Output Total 450 925 Balance -440 -745 Intake: IV 10 Invasive Line 1 10 Oral 180 Output: Urine 450 925 Other: Voiding Method Indwelling Catheter Indwelling Catheter # Bowel Movements 1 - Exam PHYSICAL EXAMINATION: Patient is lying in the bed comfortably, no acute distress, awake alert and oriented. obese. HEENT: Normocephalic. Neck is supple. Pupils reactive. Nostrils clear. Oral cavity is moist. Neck reveals no JVD, carotid bruits, or thyromegaly. CHEST EXAMINATION: Trachea is central. Symmetrical expansion. Mild basilar expiratory wheezing. No rhonchi or coarse breath sounds. Nonlabored breathing. CARDIAC: Normal S1, S2 with no gallops. No murmurs ABDOMEN: Soft. Bowel sounds normal. No organomegaly. No abdominal bruits. Extremities: reveal no edema. No clubbing or cyanosis Neurologically awake, alert, oriented x2-3 with well-coordinated movements. No focal deficits noted Skin: No rash or skin lesions. Psychiatric: Coperative. Musculoskeletal: No joint swelling or deformity. - Labs CBC & Chem 7: 05/16/21 20:56 05/18/21 07:18 Labs: Abnormal Lab Results - Last 24 Hours (Table) 05/18/21 05/18/21 05/18/21 Range/Units 07:18 07:18 12:06 Chloride 96 L (98-107) mmol/L Carbon Dioxide 37 H (22-30) mmol/L BUN 24 H (7-17) mg/dL Glucose 101 H (74-99) mg/dL POC Glucose (mg/dL) 176 H (75-99) mg/dL Hemoglobin A1c 10.4 H (4.0-6.0) % TSH 0.129 L (0.465-4.680) mIU/L 05/18/21 05/18/21 Range/Units 16:30 19:42 Chloride (98-107) mmol/L Carbon Dioxide (22-30) mmol/L BUN (7-17) mg/dL Glucose (74-99) mg/dL POC Glucose (mg/dL) 199 H 150 H (75-99) mg/dL Hemoglobin A1c (4.0-6.0) % TSH (0.465-4.680) mIU/L Assessment and Plan Assessment: Acute on chronic hyper respiratory failure secondary to noncompliance with oxygen use. Chronic hypoxic and Hypercapnic respiratory failure Likely due to COPD and obesity hypoventilation.. Recent PE and history of DVT Altered mental status possible metabolic elcephalopathy improved now Hypertension Hyperglycemia with uncontrolled diabetes type 2 insulin-dependent. A1 c 10.4 History of renal cancer status post right nephrectomy Hyperlipidemia Morbid obesity BMI 47.2 DVT prophylaxis patient is already on Eliquis Plan: Patient will be continued oxygen supplementation and started back on anticoagulation with Eliquis. Patient was encouraged with incentive spirometry and deep breathing exercises. Continue to titrate down oxygen. Continue with insulin regimen with sliding scale. Start on duo nebs as needed. Continue with aspirin statins and cardiology is on board. Continue to follow closely. Time with Patient: Greater than 30
[2021-05-19] MEDS: IPRATROPIUM-ALBUTEROL 3 ML NEB INHALATION PRN ×2 (05:00→23:13)
[2021-05-19 06:05] LABS: Glucose,Whole Blood 114 mg/dL (75-99)
[2021-05-19] MEDS: INSULIN ASPART (NovoLOG) 100 UNIT/ML VIAL SQ SCH ×4 (06:05→20:42)
--- NOTE | 2021-05-19 09:36 | XR ---
EXAMINATION TYPE: XR chest 1V DATE OF EXAM: 05/19/2021 COMPARISON: 05/16/2021 HISTORY: MELISSA TECHNIQUE: Single frontal view of the chest is obtained. FINDINGS: Low lung volumes. Elevation of the left hemidiaphragm. Mild left basilar airspace opacity most suggestive of atelectasis or resolving pneumonia. Mild right basilar airspace opacity. Findings have decreased since prior exam. No pleural effusion or pneumothorax. Right shoulder prosthesis is se en. The IMPRESSION: 1. Left basilar airspace opacity has slightly decreased since prior exam suggestive of resolving atel ectasis or pneumonia. Mild right basilar airspace opacity. Findings appear to have decreased since pr ior exam.
[2021-05-19] MEDS: INSULIN DETEMIR (LEVEMIR) 100 UNIT/ML SYR SQ SCH ×2 (10:35→20:43)
[2021-05-19] MEDS: ATORVASTATIN 20 MG TAB PO SCH (10:36)
[2021-05-19] MEDS: SERTRALINE 50 MG TAB PO SCH (10:36)
[2021-05-19] MEDS: ASPIRIN 81 MG PO SCH (10:36)
[2021-05-19] MEDS: FUROSEMIDE 40 MG TAB PO SCH (10:36)
[2021-05-19] MEDS: APIXABAN 5 MG TAB PO SCH ×2 (10:36→22:14)
[2021-05-19 11:34] VITALS: BMI 47.2
[2021-05-19 11:56] LABS: Glucose,Whole Blood 286 mg/dL (75-99)
--- NOTE | 2021-05-19 11:56 | ECHOF ---
Referral Reason:LV function MEASUREMENTS -------- HEIGHT: 154.9 cm WEIGHT: 113.4 kg BP: 113/58 RVIDd: 4.6 cm (< 3.3) IVSd: 1.2 cm (0.6 - 1.1) LVIDd: 2.5 cm (3.9 - 5.3) LVPWd: 1.2 cm (0.6 - 1.1) IVSs: 1.3 cm LVIDs: 1.5 cm LVPWs: 1.7 cm LAESV Index (A-L): 29.64 ml/m Ao Diam: 2.5 cm (2.0 - 3.7) AV Cusp: 1.6 cm (1.5 - 2.6) MV E Zac: 1.17 m/s MV DecT: 203 ms MV A Zac: 1.88 m/s MV E/A Ratio: 0.62 AV maxP.51 mmHg AV meanP.96 mmHg RAP: 5.00 mmHg RVSP: 83.37 mmHg FINDINGS -------- Sinus rhythm. This was a technically difficult study with suboptimal apical views. The left ventricular size is normal. There is mild concentric left ventricular hypertrophy. Overa ll left ventricular systolic function is low-normal with, an EF between 50 - 55 %. Left ventricular fillimg pressure cannot be estimated due to severe mitral annular calcification. The right ventricle is severely enlarged. The right ventricular septal wall is flattened in diastol e which is consistent with right ventricular volume overload. LA is midly dilated 29-33ml/m2. The right atrium is mildly enlarged. 5.0mg of Lumason was utilized for enhancement of images Interatrial and interventricular septum intact. There is mild aortic valve sclerosis. There is no evidence of aortic regurgitation. There is mild aortic stenosis present. Peak/mean gradient across the Aortic Valve is 19.51mmHg / 12.96mmHg. Severe mitral annular calcification present. Mild mitral regurgitation is present. Moderate to severe tricuspid regurgitation present. There is severe pulmonary hypertension. The r ight ventricular systolic pressure, as measured by Doppler, is 83.37mmHg. Trace/mild (physiologic) pulmonic regurgitation. The aortic root size is normal. IVC Not well visulized. There is no pericardial effusion. CONCLUSIONS -------- 1. The left ventricular size is normal. 2. There is mild concentric left ventricular hypertrophy. 3. Overall left ventricular systolic function is low-normal with, an EF between 50 - 55 %. 4. Left ventricular fillimg pressure cannot be estimated due to severe mitral annular calcification. 5. The right ventricle is severely enlarged. 6. The right ventricular septal wall is flattened in diastole which is consistent with right ventric ular volume overload. 7. LA is midly dilated 29-33ml/m2. 8. The right atrium is mildly enlarged. 9. There is mild aortic valve sclerosis. 10. There is mild aortic stenosis present. 11. Peak/mean gradient across the Aortic Valve is 19.51mmHg / 12.96mmHg. 12. Severe mitral annular calcification present. 13. Mild mitral regurgitation is present. 14. Moderate to severe tricuspid regurgitation present. 15. There is severe pulmonary hypertension. 16. The right ventricular systolic pressure, as measured by Doppler, is 83.37mmHg. 17. Trace/mild (physiologic) pulmonic regurgitation. PHARMACEUTICAL SALESPERSON: Marilyn Malagon RDCS
--- NOTE | 2021-05-19 12:48 | P.PN ---
Subjective Progress Note Date: 05/19/21 HISTORY OF PRESENT ILLNESS: This is a 76-year-old female who was diagnosed with bilateral pulmonary embolisms at the end of March 2021. Patient was brought to the hospital secondary to hypoxia. She is on home O2. However she was not wearing it and her oxygen saturations were apparently it in the 70s on room air. Patient examined this morning at the bedside. She denies chest pain or pressure. Denies shortness of breath. Patient is confused at the time of examination. Vital signs are stable. Echocardiogram completed in March 2021 revealed ejection fraction 50-55% 05/19/2021 Patient examined this morning. Patient is sitting up in the chair. She denies chest pain or pressure. She denies shortness of breath. She remains on nasal cannula with oxygen saturations greater than 92%. Echocardiogram completed revealed ejection fraction 50-55%, right ventricle severely enlarged, right ventricular septal wall flattened in diastole which is consistent with right ventricular volume overload, mild aortic stenosis, mild mitral regurgitation, moderate to severe tricuspid regurgitation and severe pulmonary hypertension. PHYSICAL EXAM: VITAL SIGNS: Reviewed. GENERAL: Well-developed in no acute distress. NECK: Supple. No JVD or thyromegaly LUNGS: Respirations even and unlabored. Lungs essentially clear to auscultation bilaterally. HEART: Regular rate and rhythm. S1 and S2 heard. EXTREMITIES: Normal range of motion. No clubbing or cyanosis. Peripheral pulses intact. No lower extremity edema ASSESSMENT: Acute on chronic hypoxic respiratory failure, on home oxygen Recent diagnosis of bilateral pulmonary emboli Abnormal troponins, no rise and fall pattern, possibly secondary to hypoxia Altered mental status History of renal cancer status post nephrectomy History of DVT Diabetes Hyperlipidemia Morbid obesity: BMI 47.2 PLAN: Continue anticoagulation with Eliquis Continue additional cardiac medications Further recommendations pending patient course Nurse practitioner note has been reviewed by physician. Signing provider agrees with the documented findings, assessment, and plan of care. Objective - Vital Signs Vital signs: Vital Signs Temp 97.5 F L 05/19/21 08:00 Pulse 108 H 05/19/21 08:00 Resp 20 05/19/21 08:00 BP 134/80 05/19/21 08:00 Pulse Ox 94 L 05/19/21 08:00 Intake & Output 05/18/21 05/19/21 05/19/21 18:59 06:59 18:59 Intake Total 180 10 Output Total 925 1000 Balance -745 -990 Weight 113.398 kg Intake: IV 10 Invasive Line 1 10 Oral 180 Output: Urine 925 1000 Other: Voiding Method Indwelling Catheter Indwelling Catheter # Bowel Movements 1 - Labs CBC & Chem 7: 05/16/21 20:56 05/18/21 07:18 Labs: Abnormal Lab Results - Last 24 Hours (Table) 05/18/21 05/18/21 05/18/21 Range/Units 07:18 16:30 19:42 POC Glucose (mg/dL) 199 H 150 H (75-99) mg/dL Hemoglobin A1c 10.4 H (4.0-6.0) % 05/19/21 05/19/21 Range/Units 05:53 11:53 POC Glucose (mg/dL) 114 H 286 H (75-99) mg/dL Hemoglobin A1c (4.0-6.0) %
[2021-05-19 16:39] LABS: Glucose,Whole Blood 87 mg/dL (75-99)
[2021-05-19 20:16] LABS: Glucose,Whole Blood 116 mg/dL (75-99)
[2021-05-20 06:16] LABS: Glucose,Whole Blood 113 mg/dL (75-99)
[2021-05-20] MEDS: INSULIN ASPART (NovoLOG) 100 UNIT/ML VIAL SQ SCH ×4 (06:21→20:17)
[2021-05-20] MEDS: IPRATROPIUM-ALBUTEROL 3 ML NEB INHALATION PRN ×3 (08:10→18:40)
[2021-05-20] MEDS: APIXABAN 5 MG TAB PO SCH ×2 (09:00→20:17)
[2021-05-20] MEDS: ATORVASTATIN 20 MG TAB PO SCH (09:00)
[2021-05-20] MEDS: ASPIRIN 81 MG PO SCH (09:00)
[2021-05-20] MEDS: FUROSEMIDE 40 MG TAB PO SCH (09:01)
[2021-05-20] MEDS: SERTRALINE 50 MG TAB PO SCH (09:01)
[2021-05-20] MEDS: INSULIN DETEMIR (LEVEMIR) 100 UNIT/ML SYR SQ SCH ×2 (09:06→20:17)
--- NOTE | 2021-05-20 11:07 | P.PN ---
Subjective Progress Note Date: 05/20/21 HISTORY OF PRESENT ILLNESS: This is a 76-year-old female who was diagnosed with bilateral pulmonary embolisms at the end of March 2021. Patient was brought to the hospital secondary to hypoxia. She is on home O2. However she was not wearing it and her oxygen saturations were apparently it in the 70s on room air. Patient examined this morning at the bedside. She denies chest pain or pressure. Denies shortness of breath. Patient is confused at the time of examination. Vital signs are stable. Echocardiogram completed in March 2021 revealed ejection fraction 50-55% 05/19/2021 Patient examined this morning. Patient is sitting up in the chair. She denies chest pain or pressure. She denies shortness of breath. She remains on nasal cannula with oxygen saturations greater than 92%. Echocardiogram completed revealed ejection fraction 50-55%, right ventricle severely enlarged, right ventricular septal wall flattened in diastole which is consistent with right ventricular volume overload, mild aortic stenosis, mild mitral regurgitation, moderate to severe tricuspid regurgitation and severe pulmonary hypertension. 05/20/2021 Patient examined this morning. Patient is sitting up in the chair. She denies chest pain or pressure. Denies shortness of breath. She remains anticoagulated with Eliquis. PHYSICAL EXAM: VITAL SIGNS: Reviewed. GENERAL: Well-developed in no acute distress. NECK: Supple. No JVD or thyromegaly LUNGS: Respirations even and unlabored. Lungs essentially clear to auscultation bilaterally. HEART: Regular rate and rhythm. S1 and S2 heard. EXTREMITIES: Normal range of motion. No clubbing or cyanosis. Peripheral pulses intact. No lower extremity edema ASSESSMENT: Acute on chronic hypoxic respiratory failure, on home oxygen Recent diagnosis of bilateral pulmonary emboli Abnormal troponins, no rise and fall pattern, possibly secondary to hypoxia Altered mental status History of renal cancer status post nephrectomy History of DVT Diabetes Hyperlipidemia Morbid obesity: BMI 47.2 PLAN: Continue anticoagulation with Eliquis Continue additional cardiac medications No further inpatient recommendations from a cardiac standpoint We will follow on an as-needed basis. Please call with questions or concerns. Nurse practitioner note has been reviewed by physician. Signing provider agrees with the documented findings, assessment, and plan of care. Objective - Vital Signs Vital signs: Vital Signs Temp 98.1 F 05/20/21 04:00 Pulse 74 05/20/21 08:25 Resp 18 05/20/21 08:25 BP 114/64 05/20/21 04:00 Pulse Ox 96 05/20/21 07:57 Intake & Output 05/19/21 05/20/21 05/20/21 18:59 06:59 18:59 Intake Total 720 Output Total 500 Balance 220 Weight 113.398 kg Intake: Oral 720 Output: Urine 500 Other: Voiding Method Indwelling Catheter Bedside Commode # Voids 2 - Labs CBC & Chem 7: 05/16/21 20:56 05/18/21 07:18 Labs: Abnormal Lab Results - Last 24 Hours (Table) 05/19/21 05/19/21 05/20/21 Range/Units 11:53 20:15 06:15 POC Glucose (mg/dL) 286 H 116 H 113 H (75-99) mg/dL
[2021-05-20 11:39] LABS: Calcium 9.1 mg/dL (8.4-10.2); Potassium 4.9 mmol/L (3.5-5.1)
[2021-05-20 11:55] LABS: Basophils % (A) 1 %; Eosinophils # (A) 0.5 k/uL (0-0.7); Eosinophils % (A) 7 %; HCT 34.7 % (34.0-46.0); Hypochromasia Marked; Lymphocytes # (A) 1.2 k/uL (1.0-4.8); Lymphocytes % (A) 19 %; MCH 28.7 pg (25.0-35.0); MCHC 31.6 g/dL (31.0-37.0); MCV 90.9 fL (80.0-100.0); Monocytes # (A) 0.4 k/uL (0-1.0); Monocytes % (A) 7 %; Neutrophils # (A) 4.1 k/uL (1.3-7.7); Neutrophils % (A) 65 %; Platelet Count 215 k/uL (150-450); RBC 3.82 m/uL (3.80-5.40); RDW 14.3 % (11.5-15.5); WBC 6.3 k/uL (3.8-10.6)
[2021-05-20 12:21] LABS: Glucose,Whole Blood 238 mg/dL (75-99)
[2021-05-20 17:03] LABS: Glucose,Whole Blood 244 mg/dL (75-99)
[2021-05-20 20:01] LABS: Glucose,Whole Blood 281 mg/dL (75-99)
[2021-05-20] MEDS: guaiFENesin-DM 100-10MG/5ML 10 ML CUP PO PRN (22:42)
--- NOTE | 2021-05-20 23:59 | P.PN ---
Subjective Progress Note Date: 05/19/21 Principal diagnosis: Acute on chronic hyper respiratory failure secondary to noncompliance with oxygen use. Chronic hypoxic and Hypercapnic respiratory failure Likely due to COPD and obesity hypoventilation.. Recent PE and history of DVT Patient is a 76-year-old female with a known history of hypertension, hyperlipidemia, diabetes type 2 insulin-dependent, bilateral diabetic peripheral neuropathy obstructive sleep apnea currently not using CPAP, thoracolumbar kyphoscoliosis, and recent history of PE with right ventricular strain and on anticoagulation with Eliquis was sent to ER from skilled nursing for evaluation of shortness of breath. Patient was saturating at 70% on room air. Apparently patient has not been using oxygen which she is supposed to wear. Otherwise pat ient denied any cough or sputum production. No fever no chills. No nausea vomiting abdominal pain or diarrhea. No recent illnesses. No dysuria or hematuria. Patient was discharged from the hospital on 04/09/2021 and was diagnosed with bilateral pulmonary embolism. Patient was heparin drip transition to Eliquis. 2D echocardiogram showed right ventricular strain at the time. Chest x-ray showed infiltrate and atelectasis lung base without change. Coarse lung markings. No obvious heart failure. EKG showed sinus tachycardia. Laboratory pressure WBC 7.6 hemoglobin 11.5 and platelets 246 Sodium 137 potassium 4.6 BUN 25 creatinine 0.99 blood sugar 195 Liver enzymes are not elevated magnesium 1.6 Troponin 0 0.030, 0.024 and 0.019 proBNP 1120 Patient is on 6 L oxygen via nasal cannula on admission 05/18/2021 Patient is currently sitting in the bed comfortably. Awake alert and oriented x3. Tolerating oral diet. Currently on oxygen via nasal cannula titrating down to 3 L. Patient is usually on 2 L at home. Denied any complaints of chest pain or shortness with. No cough or sputum produ ction. Patient was started back on anticoagulation with Eliquis. 2D echocardiogram in March 2021 showed normal EF. Laboratory showed sodium 138 potassium 4.7 chloride 96 and bicarb 37, BUN 24 and creatinine 0.99 A1c 10.4 TSH 0.129 and free T4 level is normal 1.66 Patient is being continued Lasix 40 mg daily 05/19/2021 Patient is currently feeling okay comfortably. Currently requiring 4 to 5 L of oxygen via nasal cannula and saturating at 92%. 2D echocardiogram showed ejection fraction 520 to 55% with severely dilated right ventricle and right ventricular septal wall flattening in diastole which is consistent with right ventricular volume overload. Moderate to severe TR and severe pulmonary hypertension. Patient is being continued on Lasix 40 mg daily. Also on breathing treatments Overall clinically improving. Cardiology is on board. Belcher catheter has been discontinued and PT OT was consulted. Current medications reviewed. Current medications reviewed. Objective - Vital Signs Vital signs: Vital Signs Temp 98.3 F 05/19/21 16:00 Pulse 96 05/19/21 16:00 Resp 20 05/19/21 16:00 BP 142/74 05/19/21 16:00 Pulse Ox 96 05/19/21 16:46 Intake & Output 05/19/21 05/19/21 05/20/21 06:59 18:59 06:59 Intake Total 10 720 Output Total 1000 500 Balance -990 220 Weight 113.398 kg Intake: IV 10 Invasive Line 1 10 Oral 720 Output: Urine 1000 500 Other: Voiding Method Indwelling Catheter Indwelling Catheter # Voids 2 # Bowel Movements 1 - Exam PHYSICAL EXAMINATION: Patient is lying in the bed comfortably, no acute distress, awake alert and oriented. obese. HEENT: Normocephalic. Neck is supple. Pupils reactive. Nostrils clear. Oral cavity is moist. Neck reveals no JVD, carotid bruits, or thyromegaly. CHEST EXAMINATION: Trachea is central. Symmetrical expansion. no wheezing. No rhonchi or coarse breath sounds. Nonlabored breathing. CARDIAC: Normal S1, S2 with no gallops. No murmurs ABDOMEN: Soft. Bowel sounds normal. No organomegaly. No abdominal bruits. Extremities: reveal no edema. No clubbing or cyanosis Neurologically awake, alert, oriented x2-3 with well-coordinated movements. No focal deficits noted Skin: No rash or skin lesions. Psychiatric: Coperative. Musculoskeletal: No joint swelling or deformity. - Labs CBC & Chem 7: 05/20/21 10:49 05/20/21 10:49 Labs: Abnormal Lab Results - Last 24 Hours (Table) 05/19/21 05/19/21 05/19/21 Range/Units 05:53 11:53 20:15 POC Glucose (mg/dL) 114 H 286 H 116 H (75-99) mg/dL Assessment and Plan Assessment: Acute on chronic hyper respiratory failure secondary to noncompliance with oxygen use. Chronic hypoxic and Hypercapnic respiratory failure Likely due to COPD and obesity hypoventilation.. Recent PE and history of DVT Severe pulmonary hypertension and moderate to severe TR Altered mental status possible metabolic elcephalopathy improved now Hypertension Hyperglycemia with uncontrolled diabetes type 2 insulin-dependent. A1 c 10.4 History of renal cancer status post right nephrectomy Hyperlipidemia Morbid obesity BMI 47.2 DVT prophylaxis patient is already on Eliquis Plan: Patient will be continued oxygen supplementation and started back on anticoagulation with Eliquis. Patient was encouraged with incentive spirometry and deep breathing exercises. Continue to titrate down oxygen. Continue with insulin regimen with sliding scale. c/w lasix. Start on duo nebs as needed. Continue with aspirin statins and cardiology is on board. Continue to follow closely. Time with Patient: Greater than 30
--- NOTE | 2021-05-21 00:03 | P.PN ---
Subjective Progress Note Date: 05/20/21 Principal diagnosis: Acute on chronic hyper respiratory failure secondary to noncompliance with oxygen use. Chronic hypoxic and Hypercapnic respiratory failure Likely due to COPD and obesity hypoventilation.. Recent PE and history of DVT Patient is a 76-year-old female with a known history of hypertension, hyperlipidemia, diabetes type 2 insulin-dependent, bilateral diabetic peripheral neuropathy obstructive sleep apnea currently not using CPAP, thoracolumbar kyphoscoliosis, and recent history of PE with right ventricular strain and on anticoagulation with Eliquis was sent to ER from [facility] for evaluation of shortness of breath. Patient was saturating at 70% on room air. Apparently patient has not been using oxygen which she is supposed to wear. Otherwise pat ient denied any cough or sputum production. No fever no chills. No nausea vomiting abdominal pain or diarrhea. No recent illnesses. No dysuria or hematuria. Patient was discharged from the hospital on 04/09/2021 and was diagnosed with bilateral pulmonary embolism. Patient was heparin drip transition to Eliquis. 2D echocardiogram showed right ventricular strain at the time. Chest x-ray showed infiltrate and atelectasis lung base without change. Coarse lung markings. No obvious heart failure. EKG showed sinus tachycardia. Laboratory pressure WBC 7.6 hemoglobin 11.5 and platelets 246 Sodium 137 potassium 4.6 BUN 25 creatinine 0.99 blood sugar 195 Liver enzymes are not elevated magnesium 1.6 Troponin 0 0.030, 0.024 and 0.019 proBNP 1120 Patient is on 6 L oxygen via nasal cannula on admission 05/18/2021 Patient is currently sitting in the bed comfortably. Awake alert and oriented x3. Tolerating oral diet. Currently on oxygen via nasal cannula titrating down to 3 L. Patient is usually on 2 L at home. Denied any complaints of chest pain or shortness with. No cough or sputum produ ction. Patient was started back on anticoagulation with Eliquis. 2D echocardiogram in March 2021 showed normal EF. Laboratory showed sodium 138 potassium 4.7 chloride 96 and bicarb 37, BUN 24 and creatinine 0.99 A1c 10.4 TSH 0.129 and free T4 level is normal 1.66 Patient is being continued Lasix 40 mg daily 05/19/2021 Patient is currently feeling okay comfortably. Currently requiring 4 to 5 L of oxygen via nasal cannula and saturating at 92%. 2D echocardiogram showed ejection fraction 520 to 55% with severely dilated right ventricle and right ventricular septal wall flattening in diastole which is consistent with right ventricular volume overload. Moderate to severe TR and severe pulmonary hypertension. Patient is being continued on Lasix 40 mg daily. Also on breathing treatments Overall clinically improving. Cardiology is on board. Belcher catheter has been discontinued and PT OT was consulted. 05/20/2021 Patient is currently sitting up in the chair. No complaints of chest pain or shortness of the. No nausea vomiting or abdominal pain or diarrhea. Tolerating oral diet. Requiring oxygen at 5 L via nasal cannula. Patient has been tried on Lasix 40 mg daily. Belcher catheter has been discontinued and patient is is able to void spontaneously. Upon discussion with her daughter, patient is agreeable to go to rehab.. Current medications reviewed. Objective - Vital Signs Vital signs: Vital Signs Temp 97.9 F 05/20/21 16:00 Pulse 92 05/20/21 16:00 Resp 20 05/20/21 16:00 BP 133/63 05/20/21 16:00 Pulse Ox 100 05/20/21 16:00 Intake & Output 05/19/21 05/20/21 05/20/21 18:59 06:59 18:59 Intake Total 720 1080 Output Total 500 Balance 220 1080 Weight 113.398 kg Intake: Oral 720 1080 Output: Urine 500 Other: Voiding Method Indwelling Catheter Bedside Commode # Voids 2 - Exam PHYSICAL EXAMINATION: Patient is lying in the bed comfortably, no acute distress, awake alert and oriented. obese. HEENT: Normocephalic. Neck is supple. Pupils reactive. Nostrils clear. Oral cavity is moist. Neck reveals no JVD, carotid bruits, or thyromegaly. CHEST EXAMINATION: Trachea is central. Symmetrical expansion. no wheezing. No rhonchi or coarse breath sounds. Nonlabored breathing. CARDIAC: Normal S1, S2 with no gallops. No murmurs ABDOMEN: Soft. Bowel sounds normal. No organomegaly. No abdominal bruits. Extremities: reveal no edema. No clubbing or cyanosis Neurologically awake, alert, oriented x2-3 with well-coordinated movements. No focal deficits noted Skin: No rash or skin lesions. Psychiatric: Coperative. Musculoskeletal: No joint swelling or deformity. - Labs CBC & Chem 7: 05/20/21 10:49 07/08/21 10:49 Labs: Abnormal Lab Results - Last 24 Hours (Table) 05/19/21 05/20/21 05/20/21 Range/Units 20:15 06:15 10:49 Hgb 11.0 L (11.4-16.0) gm/dL Chloride (98-107) mmol/L Carbon Dioxide (22-30) mmol/L Glucose (74-99) mg/dL POC Glucose (mg/dL) 116 H 113 H (75-99) mg/dL 05/20/21 05/20/21 05/20/21 Range/Units 10:49 12:20 17:02 Hgb (11.4-16.0) gm/dL Chloride 94 L (98-107) mmol/L Carbon Dioxide 38 H (22-30) mmol/L Glucose 217 H (74-99) mg/dL POC Glucose (mg/dL) 238 H 244 H (75-99) mg/dL Assessment and Plan Assessment: Acute on chronic hyper respiratory failure secondary to noncompliance with oxygen use. Chronic hypoxic and Hypercapnic respiratory failure Likely due to COPD and o besity hypoventilation.. Recent PE and history of DVT Severe pulmonary hypertension and moderate to severe TR Altered mental status possible metabolic elcephalopathy improved now Hypertension Hyperglycemia with uncontrolled diabetes type 2 insulin-dependent. A1 c 10.4 History of renal cancer status post right nephrectomy Hyperlipidemia Morbid obesity BMI 47.2 DVT prophylaxis patient is already on Eliquis Plan: Patient will be continued oxygen supplementation and started back on anticoagulation with Eliquis. Patient was encouraged with incentive spirometry and deep breathing exercises. Continue to titrate down oxygen. Continue with insulin regimen with sliding scale. c/w lasix. Start on duo nebs as needed. Continue with aspirin statins and cardiology is on board. Continue to follow c katherinly. Time with Patient: Greater than 30
[2021-05-21] MEDS: INSULIN ASPART (NovoLOG) 100 UNIT/ML VIAL SQ SCH ×4 (05:57→20:38)
[2021-05-21 06:04] LABS: Glucose,Whole Blood 84 mg/dL (75-99)
[2021-05-21] MEDS: IPRATROPIUM-ALBUTEROL 3 ML NEB INHALATION PRN (07:56)
[2021-05-21] MEDS: APIXABAN 5 MG TAB PO SCH ×2 (08:48→20:35)
[2021-05-21] MEDS: SERTRALINE 50 MG TAB PO SCH (08:48)
[2021-05-21] MEDS: ATORVASTATIN 20 MG TAB PO SCH (08:48)
[2021-05-21] MEDS: ASPIRIN 81 MG PO SCH (08:48)
[2021-05-21] MEDS: FUROSEMIDE 40 MG TAB PO SCH (08:51)
[2021-05-21] MEDS: INSULIN DETEMIR (LEVEMIR) 100 UNIT/ML SYR SQ SCH ×2 (09:00→20:38)
[2021-05-21 09:46] LABS: Calcium 9.1 mg/dL (8.4-10.2); Potassium 5.3 mmol/L (3.5-5.1)
[2021-05-21 11:51] LABS: Glucose,Whole Blood 170 mg/dL (75-99)
[2021-05-21 16:51] LABS: Glucose,Whole Blood 166 mg/dL (75-99)
[2021-05-21] MEDS: guaiFENesin-DM 100-10MG/5ML 10 ML CUP PO PRN (20:35)
[2021-05-21 20:37] LABS: Glucose,Whole Blood 201 mg/dL (75-99)
[2021-05-22 04:23] VITALS: RESP 22; TEMP 98.1
[2021-05-22 06:12] LABS: Glucose,Whole Blood 86 mg/dL (75-99)
[2021-05-22] MEDS: INSULIN ASPART (NovoLOG) 100 UNIT/ML VIAL SQ SCH ×2 (06:31→12:28)
[2021-05-22] MEDS: INSULIN DETEMIR (LEVEMIR) 100 UNIT/ML SYR SQ SCH (08:26)
[2021-05-22] MEDS: FUROSEMIDE 40 MG TAB PO SCH (08:26)
[2021-05-22] MEDS: ASPIRIN 81 MG PO SCH (08:26)
[2021-05-22] MEDS: SERTRALINE 50 MG TAB PO SCH (08:26)
[2021-05-22] MEDS: ATORVASTATIN 20 MG TAB PO SCH (08:26)
[2021-05-22] MEDS: APIXABAN 5 MG TAB PO SCH (08:26)
[2021-05-22 11:20] LABS: Calcium 9.4 mg/dL (8.4-10.2); Potassium 5.1 mmol/L (3.5-5.1)
[2021-05-22 11:24] LABS: Glucose,Whole Blood 215 mg/dL (75-99)
[2021-05-22 12:00] VITALS: BP 149/69; PULSE 83
--- NOTE | 2021-05-22 16:03 | P.PN ---
Subjective Progress Note Date: 05/21/21 Principal diagnosis: Acute on chronic hyper respiratory failure secondary to noncompliance with oxygen use. Chronic hypoxic and Hypercapnic respiratory failure Likely due to COPD and obesity hypoventilation.. Recent PE and history of DVT Patient is a 76-year-old female with a known history of hypertension, hyperlipidemia, diabetes type 2 insulin-dependent, bilateral diabetic peripheral neuropathy obstructive sleep apnea currently not using CPAP, thoracolumbar kyphoscoliosis, and recent history of PE with right ventricular strain and on anticoagulation with Eliquis [facility] of [facility]ness of breath. Patient was saturating at 70% on room air. Apparently patient has not been using oxygen which she is supposed to wear. Otherwise patient denied any cough or sputum production. No fever no chills. No nausea vomiting abdominal pain or diarrhea. No recent illnesses. No dysuria or hematuria. Patient was discharged from the hospital on 04/09/2021 and was diagnosed with bilateral pulmonary embolism. Patient was heparin drip transition to Eliquis. 2D echocardiogram showed right ventricular strain at the time. Objective - Vital Signs Vital signs: Vital Signs Temp 98.3 F 05/21/21 12:00 Pulse 87 05/21/21 12:00 Resp 20 05/21/21 12:00 BP 146/89 05/21/21 12:00 Pulse Ox 98 05/21/21 12:00 Intake & Output 05/20/21 05/21/21 05/21/21 18:59 06:59 18:59 Intake Total 1380 240 Output Total 400 Balance 1380 -400 240 Weight 107.3 kg Intake: Oral 1380 240 Output: Urine 400 Other: Voiding Method Bedside Commode # Voids 2 1 2 - Exam Patient is lying in the bed comfortably, no acute distress, awake alert and oriented. obese. HEENT: Normocephalic. Neck is supple. Pupils reactive. Nostrils clear. Oral cavity is moist. Neck reveals no JVD, carotid bruits, or thyromegaly. CHEST EXAMINATION: Trachea is central. Symmetrical expansion. no wheezing. No rhonchi or coarse breath sounds. Nonlabored breathing. CARDIAC: Normal S1, S2 with no gallops. No murmurs ABDOMEN: Soft. Bowel sounds normal. No organomegaly. No abdominal bruits. Extremities: reveal no edema. No clubbing or cyanosis Neurologically awake, alert, oriented x2-3 with well-coordinated movements. No focal deficits noted Skin: No rash or skin lesions. Psychiatric: Coperative. Musculoskeletal: No joint swelling or deformity. - Labs CBC & Chem 7: 05/20/21 10:49 05/22/21 10:11 Labs: Abnormal Lab Results - Last 24 Hours (Table) 05/20/21 05/20/21 05/21/21 Range/Units 17:02 19:58 08:45 Potassium 5.3 H (3.5-5.1) mmol/L Chloride 92 L (98-107) mmol/L Carbon Dioxide 43 H* (22-30) mmol/L BUN 19 H (7-17) mg/dL Glucose 164 H (74-99) mg/dL POC Glucose (mg/dL) 244 H 281 H (75-99) mg/dL 05/21/21 Range/Units 11:49 Potassium (3.5-5.1) mmol/L Chloride (98-107) mmol/L Carbon Dioxide (22-30) mmol/L BUN (7-17) mg/dL Glucose (74-99) mg/dL POC Glucose (mg/dL) 170 H (75-99) mg/dL Assessment and Plan Assessment: Acute on chronic hyper respiratory failure secondary to noncompliance with oxygen use. Chronic hypoxic and Hypercapnic respiratory failure Likely due to COPD and obesity hypoventilation.. Recent PE and history of DVT Severe pulmonary hypertension and moderate to severe TR Altered mental status possible metabolic elcephalopathy improved now Hypertension Hyperglycemia with uncontrolled diabetes type 2 insulin-dependent. A1 c 10.4 History of renal cancer status post right nephrectomy Hyperlipidemia Morbid obesity BMI 47.2 DVT prophylaxis patient is already on Eliquis Plan: Patient will be continued oxygen supplementation and started back on ant icoagulation with Eliquis. Patient was encouraged with incentive spirometry and deep breathing exercises. Continue to titrate down oxygen. Continue with insulin regimen with sliding scale. c/w lasix. Start on duo nebs as needed. Continue with aspirin statins and cardiology is on board. Continue to follow closely.
--- NOTE | 2021-05-22 16:10 | P.DS ---
Providers Date of admission: 05/18/21 08:57 Expected date of discharge: 05/22/21 Attending physician: Han Viveros Primary care physician: Kip Hilario Bowdle Hospital Course: Acute on chronic hyper respiratory failure secondary to noncompliance with oxygen use. Chronic hypoxic and Hypercapnic respiratory failure Likely due to COPD and obesity hypoventilation.. Recent PE and history of DVT Patient is a 76-year-old female with a known history of hypertension, hyperlipidemia, diabetes type 2 insulin-dependent, bilateral diabetic peripheral neuropathy obstructive sleep apnea currently not using CPAP, thoracolumbar kyphoscoliosis, and recent history of PE with right ventricular strain and on anticoagulation with Eliquis was sent [facility] ER from [facility] for evaluation of shortness of breath. Patient was saturating at 70% on room air. Apparently patient has not been using oxygen which she is supposed to wear. Otherwise patient denied any cough or sputum production. No fever no chills. No nausea vomiting abdominal pain or diarrhea. No recent illnesses. No dysuria or hematuria. Patient was discharged from the hospital on 04/09/2021 and was diagnosed with bilateral pulmonary embolism. Patient was heparin drip transition to Eliquis. 2D echocardiogram showed right ventricular strain at the time. Chest x-ray showed infiltrate and atelectasis lung base without change. Coarse lung markings. No obvious heart failure. EKG showed sinus tachycardia. Laboratory pressure WBC 7.6 hemoglobin 11.5 and platelets 246 Sodium 137 potassium 4.6 BUN 25 creatinine 0.99 blood sugar 195 Liver enzymes are not elevated magnesium 1.6 Troponin 0 0.030, 0.024 and 0.019 proBNP 1120 Patient is on 6 L oxygen via nasal cannula on admission 05/18/2021 Patient is currently sitting in the bed comfortably. Awake alert and oriented x3. Tolerating oral diet. Currently on oxygen via nasal cannula titrating down to 3 L. Patient is usually on 2 L at home. Denied any complaints of chest pain or shortness with. No cough or sputum production. Patient was started back on anticoagulation with Eliquis. 2D echocardiogram in March 2021 showed normal EF. Laboratory showed sodium 138 potassium 4.7 chloride 96 and bicarb 37, BUN 24 and creatinine 0.99 A1c 10.4 TSH 0.129 and free T4 level is normal 1.66 Patient is being continued Lasix 40 mg daily 05/19/2021 Patient is currently feeling okay comfortably. Currently requiring 4 to 5 L of oxygen via nasal cannula and saturating at 92%. 2D echocardiogram showed ejection fraction 520 to 55% with severely dilated right ventricle and right ventricular septal wall flattening in diastole which is consistent with right ventricular volume overload. Moderate to severe TR and severe pulmonary hypertension. Patient is being continued on Lasix 40 mg daily. Also on breathing treatments Overall clinically improving. Cardiology is on board. Belcher catheter has been discontinued and PT OT was consulted. 05/20/2021 Patient is currently sitting up in the chair. No complaints of chest pain or shortness of the. No nausea vomiting or abdominal pain or diarrhea. Tolerating oral diet. Requiring oxygen at 5 L via nasal cannula. Patient has been tried on Lasix 40 mg daily. Belcher catheter has been discontinued and patient is is able to void spontaneously. Upon discussion with her daughter, patient is agreeable to go to rehab.. 05/21/2021 Patient is seen and evaluated resting comfortably Vital signs are reviewed and are stable with a temperature of 98.7, pulse 91, respiration 20 and blood pressure 120/74 with O2 saturation of 98% on 5 L Labs are reviewed and reveal sodium of 137, potassium 5.3, BUN 19 with creatinine of 0.78; blood glucose ranging between 164-201 We will continue on current medications; PT/OT have recommended skilled rehab; await insurance authorization 05/22/2021; patient did receive insurance authorization for transfer to skilled rehab; remains on O2 at 5 L with nasal cannula saturating 98% Patient remains stable to be discharged to skilled rehab Patient Condition at Discharge: Serious Plan - Discharge Summary New Discharge Prescriptions: Continue metFORMIN HCL [Glucophage] 500 mg PO AC-BID #60 tab Apixaban [Eliquis] 5 mg PO BID Furosemide [Lasix] 40 mg PO DAILY Atorvastatin [Lipitor] 20 mg PO DAILY polyethylene glycoL 3350 [Miralax] 17 gm PO DAILY PRN #15 packet PRN Reason: Constipation Insulin Detemir [Levemir Flextouch] 27 units SQ BID Aspirin 81 mg PO DAILY chew Sertraline [Zoloft] 50 mg PO DAILY Discontinued Potassium Chloride ER [K-Dur 20] 20 meq PO DAILY Cetirizine HCl 10 mg PO DAILY Azithromycin [Zithromax Z-pack (6 tabs)] See Taper PO DIRECTED Discharge Medication List metFORMIN HCL [Glucophage] 500 mg PO AC-BID #60 tab 07/02/20 [Rx] Atorvastatin [Lipitor] 20 mg PO DAILY 03/28/21 [History] Furosemide [Lasix] 40 mg PO DAILY 03/28/21 [History] polyethylene glycoL 3350 [Miralax] 17 gm PO DAILY PRN #15 packet 03/29/21 [Rx] Insulin Detemir [Levemir Flextouch] 27 units SQ BID 04/07/21 [History] Aspirin 81 mg PO DAILY chew 04/09/21 [Rx] Apixaban [Eliquis] 5 mg PO BID 05/17/21 [History] Sertraline [Zoloft] 50 mg PO DAILY 05/17/21 [History] Follow up Appointment(s)/Referral(s): Kip Bishop III, MD [Primary Care Provider] - 1-2 days
[2021-05-22 16:43] LABS: Glucose,Whole Blood 217 mg/dL (75-99)
== END 2021-05-22 21:44 | DRG 189 ==
LOC: EC 20:37 → 6NMEDSUR 22:57 → 3SCARD 05-17 04:45 → OBSVTOIN 05-18 08:57
PROVIDERS: ADMIT Hospitalist; ATTEND Hospitalist
DX: J96.21 Acute and chronic respiratory failure with hypoxia (principal); E66.2 Morbid (severe) obesity with alveolar hypoventilation; I45.2 Bifascicular block; J98.11 Atelectasis; Z68.42 Body mass index [BMI] 45.0-49.9, adult; J96.22 Acute and chronic respiratory failure with hypercapnia; J44.9 Chronic obstructive pulmonary disease, unspecified; T41.5X6A Underdosing of therapeutic gases, initial encounter; Z91.128 Patient's intentional underdosing of medication regimen for other reason; E11.319 Type 2 diabetes mellitus with unspecified diabetic retinopathy without macular edema; E11.42 Type 2 diabetes mellitus with diabetic polyneuropathy; E11.65 Type 2 diabetes mellitus with hyperglycemia; E78.5 Hyperlipidemia, unspecified; H54.8 Legal blindness, as defined in USA; M41.35 Thoracogenic scoliosis, thoracolumbar region; I07.1 Rheumatic tricuspid insufficiency; I27.20 Pulmonary hypertension, unspecified; K59.00 Constipation, unspecified; I11.0 Hypertensive heart disease with heart failure; I50.9 Heart failure, unspecified; Z20.822 Contact with and (suspected) exposure to COVID-19; Z79.01 Long term (current) use of anticoagulants; Z79.4 Long term (current) use of insulin; Z79.82 Long term (current) use of aspirin; Z79.899 Other long term (current) drug therapy; Z85.528 Personal history of other malignant neoplasm of kidney; Z86.711 Personal history of pulmonary embolism; Z86.718 Personal history of other venous thrombosis and embolism; Z90.5 Acquired absence of kidney; Z91.19 Patient's noncompliance with other medical treatment and regimen; Z98.51 Tubal ligation status; Z96.611 Presence of right artificial shoulder joint; Z80.9 Family history of malignant neoplasm, unspecified; J98.6 Disorders of diaphragm
CPT/HCPCS: 36415; 71045; 71046; 80048; 80053; 81003; 82607; 83036; 83605; 83735; 83880; 84439; 84443; 84484; 85025; 85610; 85730; 87635; 93005; 93306; 94640; 94760; 96374; 99285

== ENCOUNTER 2021-06-04 21:54 | Emergency (ER) | payer MEDICARE ==
[2021-06-04 22:20] VITALS: TEMP 98.2
[2021-06-04] MEDS ORDERED: Acetaminophen-Codeine 300-30mg TAB PO STA (23:24)
--- NOTE | 2021-06-05 00:41 | CT ---
EXAMINATION TYPE: CT brain cspine wo con DATE OF EXAM: 06/05/2021 COMPARISON: 04/07/2021 HISTORY: fall/injury. PT. having severe trouble holding breath/breathing while laying for images. b est images possible. CT DLP: 1771.3 mGycm Automated exposure control for dose reduction was used. There is some cerebral cortical atrophy. There is no mass effect nor midline shift. There is no sign of intracranial hemorrhage. The calvarium is intact. Cervical vertebra have normal alignment. Exam limited by patient's size. Exam limited somewhat by mot ion. There is degenerative disc space narrowing from C3 to C7. There is mild hypertrophic facet arthr opathy. IMPRESSION: Cerebral atrophy. No acute intracranial abnormality. Multilevel cervical spondylotic changes. No frac ture. No change compared to old exam.
--- NOTE | 2021-06-05 00:46 | CT ---
EXAMINATION TYPE: CT thoracic spine wo con DATE OF EXAM: 06/05/2021 COMPARISON: 04/08/2021 HISTORY: fall/injury PT. having severe trouble holding breath/breathing while laying for images. bes t images possible. CT DLP: 1771.3 mGycm Automated exposure control for dose reduction was used. Images obtained from the level of T1-T12 without contrast. The thoracic vertebra have fairly normal alignment. There is some osteopenia. There is mild anterior wedging of numerous thoracic vertebra up to 15%. There is mild degenerative spurring anteriorly in th e lower thoracic spine. The posterior elements are intact. I see no focal bone destruction. There is no thoracic paraspinal mass. IMPRESSION: Minimal wedging of numerous thoracic vertebra consistent with osteoporosis. No significant change com pared to old exam. No acute fracture seen. Multilevel spondylotic changes.
--- NOTE | 2021-06-05 00:51 | XR ---
EXAMINATION TYPE: XR chest 1V DATE OF EXAM: 06/05/2021 COMPARISON: 05/19/2021 HISTORY: Short of breath TECHNIQUE: FINDINGS: There is elevation of the left diaphragm. Heart size is top normal. There is no heart failu re. There is right shoulder prosthesis. There is some arthritic change in the left shoulder. Right watler ng is fairly clear. IMPRESSION: There is atelectasis left lung base with elevated left diaphragm that is similar to last exam. No heart failure seen.
--- NOTE | 2021-06-05 00:53 | XR ---
EXAMINATION TYPE: XR pelvis AP view DATE OF EXAM: 06/05/2021 COMPARISON: 04/07/2021 HISTORY: Fall. Pain. TECHNIQUE: Single view FINDINGS: The pelvic ring is intact. Proximal femurs and hip joints are intact. There is no hip dyspl vamshi. There is lower lumbar spine fusion surgery. Sacroiliac joints are intact. IMPRESSION: No acute abnormality of the pelvis. No change.
--- NOTE | 2021-06-05 01:03 | CT ---
EXAMINATION TYPE: CT lumbar spine wo con DATE OF EXAM: 06/05/2021 COMPARISON: None HISTORY: fall/injury PT. having severe trouble holding breath/breathing while laying for images. bes t images possible. CT DLP: 1771.3 mGycm Automated exposure control for dose reduction was used. Images obtained from the level of T12-S2 vertebra with no contrast. Vertebra have normal alignment. There is rods and screws fusing posteriorly lumbar spine from L3 to L 5. There is disc prosthesis at L3-4 and L4-5. There is no evidence of any significant compression def ormity. The sacroiliac joints are intact. There is no lumbar paraspinal mass. I see no focal bone martha truction. IMPRESSION: Multilevel fusion surgery. No fracture seen.
--- NOTE | 2021-06-05 01:40 | ED ---
Fall HPI - General Chief Complaint: Fall Stated Complaint: Fall Time Seen by Provider: 06/04/21 22:35 Source: patient, EMS Mode of arrival: EMS - History of Present Illness Initial Comments: 76-year-old female presents to the emergency room with a chief complaint of a fall. Patient is oxygen dependent COPD on 4 L at home. Patient reports she was in the bathroom when she suffered a mechanical slip and fall and hit her head on the way down. States she fell mostly on her back. She reports pain along the thoracic and lumbar region. She denies any loss of consciousness, one-sided weakness or paresthesias. She was brought to the ED via EMS. Patient reports he typically ambulates with a walker or a scooter. This time she was using a walker when she went down. She denies any associated syncopal episodes or seizures. - Related Data Home Medications Medication Instructions Recorded Confirmed Atorvastatin [Lipitor] 20 mg PO DAILY 03/28/21 05/17/21 Furosemide [Lasix] 40 mg PO DAILY 03/28/21 05/17/21 Insulin Detemir [Levemir Flextouch] 27 units SQ BID 04/07/21 05/17/21 Apixaban [Eliquis] 5 mg PO BID 05/17/21 05/17/21 Sertraline [Zoloft] 50 mg PO DAILY 05/17/21 05/17/21 Previous Rx's Medication Instructions Recorded metFORMIN HCL [Glucophage] 500 mg PO AC-BID #60 tab 05/14/20 polyethylene glycoL 3350 [Miralax] 17 gm PO DAILY PRN #15 packet 03/29/21 Aspirin 81 mg PO DAILY chew 04/09/21 Allergies Allergy/AdvReac Type Severity Reaction Status Date / Time rofecoxib [From Vioxx] AdvReac Confusion Verified 05/17/21 10:20 Review of Systems ROS Statement: Those systems with pertinent positive or pertinent negative responses have been documented in the HPI. ROS Other: All systems not noted in ROS Statement are negative. Past Medical History Past Medical History: Cancer, Heart Failure, COPD, Diabetes Mellitus, Eye Disorder, Hyperlipidemia, Hypertension, Pneumonia Additional Past Medical History / Comment(s): Kidney cancer post-nephrectomy on the right, IDDM type II, neuropathy bilateral hands/feet, bilateral diabetic retinopathy with legal blindness in the past but vision better since eye injections, recent diagnosis of DVT of the right lower extremity, bronchitis, home oxygen at 3L/NC ATC, chronic elevation of the left hemidiaphragm, obstructive sleep apnea currently not using device, thoracolumbar kyphoscoliosis, constipation History of Any Multi-Drug Resistant Organisms: None Reported Past Surgical History: Appendectomy, Back Surgery, Hernia Repair, Joint Replacement, Tubal Ligation Additional Past Surgical History / Comment(s): Low back surgery, total R shoulder, R nephrectomy, several abdominal hernia surgeries, colonoscopy Past Anesthesia/Blood Transfusion Reactions: No Reported Reaction Additional Past Anesthesia/Blood Transfusion Reaction / Comment(s): Pt has received blood in past without reaction. Past Psychological History: No Psychological Hx Reported Smoking Status: Never smoker Past Alcohol Use History: None Reported Past Drug Use History: None Reported - Past Family History Mother Family Medical History: Cancer Father Family Medical History: Unable to Obtain Additional Family Medical History / Comment(s): Father when pt was 1 yrs old. General Exam Limitations: physical limitation General appearance: alert, in no apparent distress, obese Head exam: Present: atraumatic, normocephalic, normal inspection. Absent: other (Negative Collazo sign, raccoon eyes, tympanic.) Eye exam: Present: normal appearance, PERRL, EOMI Pupils: Present: normal accommodation ENT exam: Present: normal exam, normal oropharynx, mucous membranes moist Neck exam: Present: normal inspection, full ROM. Absent: tenderness, lymphadenopathy Respiratory exam: Present: normal lung sounds bilaterally. Absent: respiratory distress, wheezes, rales, rhonchi, stridor, chest wall tenderness Cardiovascular Exam: Present: regular rate, normal rhythm, normal heart sounds. Absent: systolic murmur, diastolic murmur, rubs GI/Abdominal exam: Present: soft. Absent: distended, tenderness, guarding, rebound, rigid Extremities exam: Present: normal inspection, full ROM, normal capillary refill. Absent: tenderness, pedal edema, joint swelling Back exam: Present: normal inspection, full ROM, tenderness, paraspinal tenderness, vertebral tenderness (Tenderness in the thoracic and lumbar spine). Absent: muscle spasm Neurological exam: Present: alert, oriented X3 Psychiatric exam: Present: normal affect, normal mood Skin exam: Present: warm, dry, intact, normal color Course Vital Signs 06/04/21 06/05/21 21:55 00:20 Temperature 98.2 F Pulse Rate 107 H 81 Respiratory 20 21 Rate Blood Pressure 161/71 159/74 O2 Sat by Pulse 98 98 Oximetry Medical Decision Making - Medical Decision Making 76-year-old female presents emergency Department with a chief complaint of fall. On physical examination, tenderness along the spine. CT of the thoracic lumbar spine is unremarkable. Brain CT and C-spine shows no acute findings. Chest x- ray is unremarkable. Pelvis x-ray is also negative. Patient was able to inability to the bathroom without any difficulties. Strict return parameters were thoroughly discussed the patient was up standing ago. Case discussed with physician. Disposition Clinical Impression: Fall Disposition: HOME SELF-CARE Condition: Stable Instructions (If sedation given, give patient instructions): Fall Prevention (ED) Additional Instructions: Please return to the Emergency Department if symptoms worsen or any other concerns. Is patient prescribed a controlled substance at d/c from ED?: No Referrals: Kip Bishop III, MD [Primary Care Provider] - 1-2 days Time of Disposition: 01:40
[2021-06-05 02:00] VITALS: BP 155/72; PULSE 77; RESP 18
== END 2021-06-05 02:00 | disposition home or self-care (01) ==
LOC: EC 21:54
DX: M54.5 Low back pain (principal); M54.6 Pain in thoracic spine; I11.0 Hypertensive heart disease with heart failure; E11.319 Type 2 diabetes mellitus with unspecified diabetic retinopathy without macular edema; E78.5 Hyperlipidemia, unspecified; H54.8 Legal blindness, as defined in USA; I50.9 Heart failure, unspecified; J44.9 Chronic obstructive pulmonary disease, unspecified; Z79.01 Long term (current) use of anticoagulants; Z79.4 Long term (current) use of insulin; Z86.718 Personal history of other venous thrombosis and embolism; Z88.8 Allergy status to other drugs, medicaments and biological substances; Z79.899 Other long term (current) drug therapy; Z99.81 Dependence on supplemental oxygen; W01.198A Fall on same level from slipping, tripping and stumbling with subsequent striking against other object, initial encounter; Y92.002 Bathroom of unspecified non-institutional (private) residence as the place of occurrence of the external cause
CPT/HCPCS: 70450; 71045; 72125; 72128; 72131; 72170; 93005; 99284

== ENCOUNTER 2021-06-25 04:47 | Observation (INO) | payer MEDICARE ==
--- NOTE | 2021-06-25 04:57 | ED ---
Chest Pain HPI - General Stated Complaint: Chest Pain Time Seen by Provider: 06/25/21 04:51 Source: RN notes reviewed, old records reviewed Mode of arrival: EMS Limitations: no limitations - History of Present Illness MD Complaint: chest pain -: hour(s) Onset: during rest Pain Location: substernal, left chest Pain Radiation: none Severity: moderate Severity scale (1-10): 4 Quality: tightness Consistency: intermittent Improves With: nothing Worsens With: nothing Anginal Symptoms: dyspnea Other Symptoms: cough Treatments Prior to Arrival: none - Related Data Home Medications Medication Instructions Recorded Confirmed Atorvastatin [Lipitor] 20 mg PO DAILY 03/28/21 05/17/21 Furosemide [Lasix] 40 mg PO DAILY 03/28/21 05/17/21 Insulin Detemir [Levemir Flextouch] 27 units SQ BID 04/07/21 05/17/21 Apixaban [Eliquis] 5 mg PO BID 05/17/21 05/17/21 Sertraline [Zoloft] 50 mg PO DAILY 05/17/21 05/17/21 Previous Rx's Medication Instructions Recorded metFORMIN HCL [Glucophage] 500 mg PO AC-BID #60 tab 05/14/20 polyethylene glycoL 3350 [Miralax] 17 gm PO DAILY PRN #15 packet 03/29/21 Aspirin 81 mg PO DAILY chew 04/09/21 Allergies Allergy/AdvReac Type Severity Reaction Status Date / Time rofecoxib [From Vioxx] AdvReac Confusion Verified 05/17/21 10:20 Review of Systems ROS Statement: Those systems with pertinent positive or pertinent negative responses have been documented in the HPI. ROS Other: All systems not noted in ROS Statement are negative. EKG Findings - EKG Comments: EKG Findings:: EKG is sinus rhythm 95, SC 172 QRS 108 QTc 429 Past Medical History Past Medical History: Cancer, Heart Failure, COPD, Diabetes Mellitus, Eye Disorder, Hyperlipidemia, Hypertension, Pneumonia Additional Past Medical History / Comment(s): Kidney cancer post-nephrectomy on the right, IDDM type II, neuropathy bilateral hands/feet, bilateral diabetic retinopathy with legal blindness in the past but vision better since eye injections, recent diagnosis of DVT of the right lower extremity, bronchitis, home oxygen at 3L/NC ATC, chronic elevation of the left hemidiaphragm, obstructive sleep apnea currently not using device, thoracolumbar kyphoscoliosis, constipation History of Any Multi-Drug Resistant Organisms: None Reported Past Surgical History: Appendectomy, Back Surgery, Hernia Repair, Joint Replacement, Tubal Ligation Additional Past Surgical History / Comment(s): Low back surgery, total R shoulder, R nephrectomy, several abdominal hernia surgeries, colonoscopy Past Anesthesia/Blood Transfusion Reactions: No Reported Reaction Additional Past Anesthesia/Blood Transfusion Reaction / Comment(s): Pt has received blood in past without reaction. Past Psychological History: No Psychological Hx Reported Smoking Status: Never smoker Past Alcohol Use History: None Reported Past Drug Use History: None Reported - Past Family History Mother Family Medical History: Cancer Father Family Medical History: Unable to Obtain Additional Family Medical History / Comment(s): Father when pt was 1 yrs old. General Exam General appearance: alert, in no apparent distress Head exam: Present: atraumatic, normocephalic, normal inspection Eye exam: Present: normal appearance, PERRL, EOMI. Absent: scleral icterus, conjunctival injection, periorbital swelling ENT exam: Present: normal exam, mucous membranes moist Neck exam: Present: normal inspection. Absent: tenderness, meningismus, lymphadenopathy Respiratory exam: Present: normal lung sounds bilaterally. Absent: respiratory distress, wheezes, rales, rhonchi, stridor Cardiovascular Exam: Present: regular rate, normal rhythm, normal heart sounds. Absent: systolic murmur, diastolic murmur, rubs, gallop, clicks GI/Abdominal exam: Present: soft, normal bowel sounds. Absent: distended, tenderness, guarding, rebound, rigid Extremities exam: Present: normal inspection, full ROM, normal capillary refill. Absent: tenderness, pedal edema, joint swelling, calf tenderness Back exam: Present: normal inspection Neurological exam: Present: alert, oriented X3, CN II-XII intact Psychiatric exam: Present: normal affect, normal mood Skin exam: Present: warm, dry, intact, normal color. Absent: rash Course Vital Signs 06/25/21 06/25/21 06/25/21 04:49 04:55 05:58 Temperature 98.9 F Pulse Rate 84 87 Respiratory 18 20 18 Rate Blood Pressure 126/76 117/84 O2 Sat by Pulse 97 100 Oximetry Disposition Clinical Impression: Chest pain, Dyspnea, Weakness, Acute exacerbation of chronic obstructive pulmonary disease Disposition: ADMITTED IP TO THIS HOSP Condition: Fair Is patient prescribed a controlled substance at d/c from ED?: No Referrals: Kip Bishop III, MD [Primary Care Provider] - 1-2 days
[2021-06-25 05:14] LABS: Basophils % (A) 1 %; Eosinophils # (A) 0.3 k/uL (0-0.7); Eosinophils % (A) 4 %; HCT 34.3 % (34.0-46.0); HGB 10.7 gm/dL (11.4-16.0); Hypochromasia Moderate; Lymphocytes # (A) 1.6 k/uL (1.0-4.8); Lymphocytes % (A) 26 %; MCH 27.8 pg (25.0-35.0); MCHC 31.2 g/dL (31.0-37.0); MCV 88.9 fL (80.0-100.0); Mean Platelet Volume 7.1; Monocytes # (A) 0.4 k/uL (0-1.0); Monocytes % (A) 7 %; Neutrophils # (A) 3.8 k/uL (1.3-7.7); Neutrophils % (A) 60 %; Platelet Count 211 k/uL (150-450); RBC 3.86 m/uL (3.80-5.40); RDW 14.7 % (11.5-15.5); WBC 6.3 k/uL (3.8-10.6)
--- NOTE | 2021-06-25 05:21 | XR ---
EXAMINATION TYPE: XR chest 2V DATE OF EXAM: 06/25/2021 COMPARISON: 06/05/2021 HISTORY: Fall. Pain. TECHNIQUE: 2 views FINDINGS: There is some infiltrate and atelectasis at the left lung base. There is no definite heart failure. There is coarsening of the interstitial markings. Heart is probably enlarged. There is right shoulder prosthesis. There are chest leads. There is elevation of the left diaphragm. IMPRESSION: Infiltrate and atelectasis at the left lung base probably improved compared to last exam. No obvious heart failure.
[2021-06-25 05:22] LABS: INR 1.1 (<1.2); Partial Thromboplastin Time 28.1 sec (22.0-30.0); Prothrombin Time 11.3 sec (9.0-12.0)
[2021-06-25 05:30] LABS: ALT 8 U/L (4-34); AST 20 U/L (14-36); African American GFR (CKD) >90 (>60 ml/min/1.73 sqM); Albumin 3.3 g/dL (3.5-5.0); Alkaline Phosphatase 52 U/L (38-126); Anion Gap 5 mmol/L; Blood Urea Nitrogen 16 mg/dL (7-17); Calcium 8.7 mg/dL (8.4-10.2); Carbon Dioxide 33 mmol/L (22-30); Chloride 100 mmol/L (98-107); Glucose 68 mg/dL (74-99); Lipase 427 U/L (23-300); Magnesium 1.4 mg/dL (1.6-2.3); Non-African American GFR(CKD) 84 (>60 ml/min/1.73 sqM); Sodium 138 mmol/L (137-145); Total Bilirubin 0.3 mg/dL (0.2-1.3); Total Protein 6.2 g/dL (6.3-8.2)
[2021-06-25] MEDS ORDERED: methylPREDNISolone SOD SUCCI 125 MG/2 ML VIAL IV STA (05:35)
[2021-06-25] MEDS ORDERED: IPRATROPIUM-ALBUTEROL 3 ML NEB INHALATION STA (05:35)
[2021-06-25 05:36] LABS: Potassium 4.5 mmol/L (3.5-5.1)
[2021-06-25] MEDS ORDERED: NITROGLYCERIN SL TABS 0.4 MG TAB SUBLINGUAL PRN (06:16)
[2021-06-25] MEDS ORDERED: ALBUTEROL NEBULIZED 2.5 MG/3 ML INHALATION SCH (08:00)
--- NOTE | 2021-06-25 10:15 | P.CNPUL ---
History of Present Illness Consult date: 06/25/21 Requesting physician: Han Viveros Reason for consult: chest pain Chief complaint: Chest, shoulder, and back pain. History of present illness: Pulmonary/critical care consult dated 06/25/2021. 76-year-old black female, who resides at [facility] the [facility], and sees Dr. Bishop as a primary, comes into the emergency room on June 25 at nearly 5:00 in the morning, complaining of chest, shoulder, and back pain. The pain apparently was 4 on the scale of 1-10. She admits to tightness and the pain is intermittent, and apparently improves and worsens with nothing. She apparently also told the ER physician that she had some shortness of breath, and cough. She was very sleepy and lethargic we saw her in the emergency department. In my opinion, she was not a very good historian. She can really not give us much in the way of details as it relates to her symptoms. She did smoke for many years. Maybe 30 or so, at 2 packs a day. Does not smoke currently. She does have a history of sleep apnea syndrome, and uses CPAP. In addition, the patient is got chronic hypoxemic respiratory failure, and does use oxygen 24/7, at 5 L/m. She is currently on 5 L here in the emergency department and saturations are 92%. White count 6.3, hemoglobin 10.7, hematocrit 34.3, platelet count 211,000. ET/INR/PTT are normal. Sodium 138, potassium 4.5, chlorides 100, CO2 33, anion gap 5, BUN 16, creatinine 0.7. Lipase was elevated at 427. Troponins were negative 2. BNP was 627. Chest x-ray shows infiltrate and atelectasis at the left lung base, and is improved compared to her previous x-ray done in May of this year. Review of Systems REVIEW OF SYSTEMS: CONSTITUTIONAL: [Negative.] NEUROLOGIC: [ Negative.] HEENT: [ Negative.] CARDIAC: Chest pain, shoulder pain, and back pain. PULMONARY: Mild shortness of breath and cough. GI: [Negative.] : [Negative.] RHEUMATOLOGIC: [ Negative.] IMMUNOLOGIC: [ Negative.] ENDOCRINE: [Negative. ] DERMATOLOGIC: [Negative.] Past Medical History Past Medical History: Cancer, Heart Failure, COPD, Diabetes Mellitus, Eye Disorder, Hyperlipidemia, Hypertension, Pneumonia Additional Past Medical History / Comment(s): Kidney cancer post-nephrectomy on the right, IDDM type II, neuropathy bilateral hands/feet, bilateral diabetic retinopathy with legal blindness in the past but vision better since eye injections, recent diagnosis of DVT of the right lower extremity, bronchitis, home oxygen at 3L/NC ATC, chronic elevation of the left hemidiaphragm, obstructive sleep apnea currently not using device, thoracolumbar kyphoscoliosis, constipation History of Any Multi-Drug Resistant Organisms: None Reported Past Surgical History: Appendectomy, Back Surgery, Hernia Repair, Joint Replacement, Tubal Ligation Additional Past Surgical History / Comment(s): Low back surgery, total R shoulder, R nephrectomy, several abdominal hernia surgeries, colonoscopy Past Anesthesia/Blood Transfusion Reactions: No Reported Reaction Additional Past Anesthesia/Blood Transfusion Reaction / Comment(s): Pt has received blood in past without reaction. Past Psychological History: No Psychological Hx Reported Smoking Status: Never smoker Past Alcohol Use History: None Reported Past Drug Use History: None Reported - Past Family History Mother Family Medical History: Cancer Father Family Medical History: Unable to Obtain Additional Family Medical History / Comment(s): Father when pt was 1 yrs old. Medications and Allergies Home Medications Medication Instructions Recorded Confirmed Type Atorvastatin [Lipitor] 20 mg PO HS 03/28/21 06/25/21 History Furosemide [Lasix] 40 mg PO DAILY 03/28/21 06/25/21 History Sertraline [Zoloft] 50 mg PO HS 05/17/21 06/25/21 History Acetaminophen Tab [Tylenol] 650 mg PO Q4H PRN 06/25/21 06/25/21 History Azithromycin [Zithromax Z-pack (6 250 mg PO DAILY 06/25/21 06/25/21 History tabs)] Cetirizine HCl 10 mg PO HS 06/25/21 06/25/21 History Dulaglutide [Trulicity] 0.75 mg SQ SY 06/25/21 06/25/21 History Insulin Glargine,Hum.rec.anlog 25 units SQ Q12H 06/25/21 06/25/21 History [Semglee Pen] Rivaroxaban [Xarelto] 20 mg PO DAILY 06/25/21 06/25/21 History metFORMIN HCL [Glucophage] 1,000 mg PO Q12H 06/25/21 06/25/21 History Allergies Allergy/AdvReac Type Severity Reaction Status Date / Time rofecoxib [From Vioxx] AdvReac Confusion Verified 06/25/21 06:39 Physical Exam Osteopathic Statement: *. No significant issues noted on an osteopathic structural exam other than those noted in the History and Physical/Consult. Vitals: Vital Signs Temp Pulse Resp BP Pulse Ox 06/25/21 09:00 98.0 F 90 18 110/64 98 06/25/21 08:00 98.0 F 94 18 126/58 98 06/25/21 06:52 96 18 133/47 100 06/25/21 06:29 89 06/25/21 06:21 89 06/25/21 05:58 87 18 117/84 100 06/25/21 04:55 20 06/25/21 04:49 98.9 F 84 18 126/76 97 Intake and Output 06/24/21 06/25/21 06/25/21 22:59 06:59 14:59 Other: Weight 133.81 kg No acute distress, somewhat lethargic and somnolent, but does arouse, currently on 5 L nasal cannula, saturation 92%. No bryan respiratory distress or difficulty, use of accessory muscles, or conversational dyspnea. HEENT examination is grossly unremarkable. Neck supple. Full range of motion. No adenopathy thyromegaly or neck vein distention. Cardiovascular examination reveals regular rhythm rate. S1-S2 normal. No S3 or S4. No discernible murmur noted. Heart sounds are very distant. Heart rate 90 bpm. Lungs reveal mostly clear breath sounds. A few scattered rhonchi are noted. No wheezes or crackles. Breath sounds equal bilaterally. Abdomen soft bowel sounds are heard. No masses or tenderness. Extremities are intact. Mild edema noted. No cyanosis or clubbing. Skin is without rash or lesion. Neurologic examination is brief but nonfocal. Results - Laboratory Findings CBC and BMP: 06/25/21 05:06 06/25/21 05:06 PT/INR, D-dimer PT 11.3 sec (9.0-12.0) 06/25/21 05:06 INR 1.1 (<1.2) 06/25/21 05:06 Abnormal lab findings: Abnormal Labs 06/25/21 06/25/21 05:06 05:06 Hgb 10.7 L Carbon Dioxide 33 H Glucose 68 L Magnesium 1.4 L Total Protein 6.2 L Albumin 3.3 L Lipase 427 H - Diagnostic Findings Chest x-ray: image reviewed Assessment and Plan Assessment: Chest, back, and shoulder pain, currently being evaluated by the primary service. COPD, not particularly active this time. Chronic hypoxemic respiratory failure, currently on 5 L nasal cannula, . History of congestive heart failure. Diabetes mellitus. History of hyperlipidemia. History of hypertension. Hypernephroma, status post right nephrectomy. History of diabetic neuropathy and retinopathy. Recent diagnosis of DVT of the right lower extremity. Chronic elevation of left hemidiaphragm. History of obstructive sleep apnea syndrome, potentially noncompliant with CPAP. Plan: Plan dated 06/25/2021. Steroids and updrafts are discontinued. The patient's in no respiratory distress. The patient will have a pro-calcitonin level done. Additional recommendations and suggestions are forthcoming. Prognosis is guarded. The patient's currently being evaluated for her chest pain. We will continue to follow make recommendations where appropriate. Time with Patient: Greater than 30
[2021-06-25] MEDS ORDERED: ACETAMINOPHEN TAB 325 MG TAB PO PRN (11:56)
[2021-06-25] MEDS ORDERED: methylPREDNISolone SOD SUCCI 125 MG/2 ML VIAL IV SCH (12:00)
[2021-06-25] MEDS: MAGNESIUM SULFATE-D5W PMX 1 GM in DEXTROSE/WATER 1 100ML.BAG IVPB SCH ×2 (12:11→13:11)
[2021-06-25 12:19] LABS: Glucose,Whole Blood 99 mg/dL (75-99)
[2021-06-25] MEDS: FUROSEMIDE 40 MG TAB PO SCH (13:10)
--- NOTE | 2021-06-25 13:12 | P.CRDCN ---
History of Present Illness Consult date: 06/25/21 History of present illness: HISTORY OF PRESENT ILLNESS: This is a 76-year-old female with a past medical history significant for COPD with home oxygen use, pulmonary embolism and DVT on anticoagulation with Xarelto, renal cancer with previous nephrectomy, diabetes, and hyperlipidemia. Patient does not follow with a telecommunications operator. We have been asked to see the patient in consultation for chest pain. Patient examined at the bedside. Patient appears to be confused and is lethargic at the time of examination. She states she does not want to answer anymore questions. The patient did tell me she has been having chest pain for the past 2 days. She reports the pain was intermittent. She believes the pain went down her arms. She thinks that she was short of breath at the time as well. The patient states she is currently having some mild chest pain but immediately afterwards she falls right back asleep. Apparently she has been refusing to have any more blood drawn. EKG reveals sinus tachycardia. Heart rate 102. Incomplete right bundle branch block. No signs of acute ischemia. Chest xray infiltrates and atelectasis at the left lung base probably improved compared to exam. No obvious heart failure. Laboratory data: WBC 6.3. Hemoglobin 10.7. Platelet count 211. Sodium 138. Potassium 4.5. BUN 16. Creatinine 0.70. Magnesium 1.4. Troponin negative 2. ProBNP 627. Current home cardiac medications include Xarelto 20 mg daily, Lasix 40 mg daily, and Lipitor 20 mg at night Most recent echocardiogram obtained in May 2021 revealed ejection fraction 50- 55%. Right ventricle severely enlarged. Right ventricular septal wall is flattened in diastole which is consistent with right ventricular volume overload. Mild aortic stenosis. Mild mitral regurgitation. Moderate to severe tricuspid regurgitation. Severe pulmonary hypertension with RVSP of 83.37 mmHg. REVIEW OF SYSTEMS: At the time of my exam: Unable to obtain a review of systems as patient is lethargic at the time of examination and appears to be confused PHYSICAL EXAM: VITAL SIGNS: Reviewed. GENERAL: Well-developed in no acute distress. HEENT: Head is normocephalic. Pupils are equal, round. Sclerae anicteric. Mucous membranes of the mouth are moist. Neck supple. No JVD or thyromegaly LUNGS: Respirations even and unlabored. Lungs diminished clear to auscultation bilaterally. Patient unable to sit up to listen to her lungs posteriorly. HEART: Regular rate and rhythm. S1 and S2 heard. Systolic murmur noted. ABDOMEN: Soft. Nondistended. Nontender. EXTREMITIES: Normal range of motion. No clubbing or cyanosis. Peripheral pulses intact. No lower extremity edema NEUROLOGIC: Lethargic. Appears confused during conversation. ASSESSMENT: Chest pain, troponins negative 2 Chronic hypoxic respiratory failure, on home oxygen Recent diagnosis of bilateral pulmonary embolism, per CT scan in March 2021 History of renal cancer status post nephrectomy History of DVT Diabetes Hyperlipidemia Morbid obesity BMI 55.7 PLAN: Patient has two negative troponins. She is currently refusing another blood draw. Will attempt to obtain another troponin at 1600 if patient agreeable at that time. Resume home cardiac medications Nitro sublingual PRN for chest pain Obtain limited echo Obtain lipid panel Further recommendations pending patient course Nurse practitioner note has been reviewed by physician. Signing provider agrees with the documented findings, assessment, and plan of care. Past Medical History Past Medical History: Cancer, Heart Failure, COPD, Diabetes Mellitus, Eye Disord er, Hyperlipidemia, Hypertension, Pneumonia Additional Past Medical History / Comment(s): Kidney cancer post-nephrectomy on the right, IDDM type II, neuropathy bilateral hands/feet, bilateral diabetic retinopathy with legal blindness in the past but vision better since eye i njections, recent diagnosis of DVT of the right lower extremity, bronchitis, home oxygen at 3L/NC ATC, chronic elevation of the left hemidiaphragm, obstructive sleep apnea currently not using device, thoracolumbar kyphoscoliosis, constipation History of Any Multi-Drug Resistant Organisms: None Reported Past Surgical History: Appendectomy, Back Surgery, Hernia Repair, Joint Replacement, Tubal Ligation Additional Past Surgical History / Comment(s): Low back surgery, total R shoulder, R nephrectomy, several abdominal hernia surgeries, colonoscopy Past Anesthesia/Blood Transfusion Reactions: No Reported Reaction Additional Past Anesthesia/Blood Transfusion Reaction / Comment(s): Pt has received blood in past without reaction. Past Psychological History: No Psychological Hx Reported Smoking Status: Never smoker Past Alcohol Use History: None Reported Past Drug Use History: None Reported - Past Family History Mother Family Medical History: Cancer Father Family Medical History: Unable to Obtain Additional Family Medical History / Comment(s): Father when pt was 1 yrs old. Medications and Allergies Home Medications Medication Instructions Recorded Confirmed Type Atorvastatin [Lipitor] 20 mg PO HS 05/16/21 08/13/21 History Furosemide [Lasix] 40 mg PO DAILY 03/28/21 06/25/21 History Sertraline [Zoloft] 50 mg PO HS 05/17/21 06/25/21 History Acetaminophen Tab [Tylenol] 650 mg PO Q4H PRN 06/25/21 06/25/21 History Azithromycin [Zithromax Z-pack (6 250 mg PO DAILY 06/25/21 06/25/21 History tabs)] Cetirizine HCl 10 mg PO HS 06/25/21 06/25/21 History Dulaglutide [Trulicity] 0.75 mg SQ SY 06/25/21 06/25/21 History Insulin Glargine,Hum.rec.anlog 25 units SQ Q12H 06/25/21 06/25/21 History [Semglee Pen] Rivaroxaban [Xarelto] 20 mg PO DAILY 06/25/21 06/25/21 History metFORMIN HCL [Glucophage] 1,000 mg PO Q12H 06/25/21 06/25/21 History Allergies Allergy/AdvReac Type Severity Reaction Status Date / Time rofecoxib [From Vioxx] AdvReac Confusion Verified 06/25/21 06:39 Physical Exam Vitals: Vital Signs Temp Pulse Pulse Resp BP BP Pulse Ox 06/25/21 10:48 98.4 F 80 18 162/75 97 06/25/21 09:00 98.0 F 90 18 110/64 98 06/25/21 08:00 98.0 F 94 18 126/58 98 06/25/21 06:52 96 18 133/47 100 06/25/21 06:29 89 06/25/21 06:21 89 06/25/21 05:58 87 18 117/84 100 06/25/21 04:55 20 06/25/21 04:49 98.9 F 84 18 126/76 97 Intake and Output 06/24/21 06/25/21 06/25/21 22:59 06:59 14:59 Other: Weight 133.81 kg Results 06/25/21 05:06 06/25/21 05:06 Cardiac Enzymes 06/25/21 06/25/21 06/25/21 Range/Units 05:06 05:06 07:28 AST 20 (14-36) U/L Troponin I <0.012 <0.012 (0.000-0.034) ng/mL Coagulation 06/25/21 Range/Units 05:06 PT 11.3 (9.0-12.0) sec APTT 28.1 (22.0-30.0) sec CBC 06/25/21 Range/Units 05:06 WBC 6.3 (3.8-10.6) k/uL RBC 3.86 (3.80-5.40) m/uL Hgb 10.7 L (11.4-16.0) gm/dL Hct 34.3 (34.0-46.0) % Plt Count 211 (150-450) k/uL Comprehensive Metabolic Panel 06/25/21 Range/Units 05:06 Sodium 138 (137-145) mmol/L Potassium 4.5 (3.5-5.1) mmol/L Chloride 100 (98-107) mmol/L Carbon Dioxide 33 H (22-30) mmol/L BUN 16 (7-17) mg/dL Creatinine 0.70 (0.52-1.04) mg/dL Glucose 68 L (74-99) mg/dL Calcium 8.7 (8.4-10.2) mg/dL AST 20 (14-36) U/L ALT 8 (4-34) U/L Alkaline Phosphatase 52 (38-126) U/L Total Protein 6.2 L (6.3-8.2) g/dL Albumin 3.3 L (3.5-5.0) g/dL Current Medications Generic Name Dose Route Start Last Admin Trade Name Nuvia PRN Reason Stop Dose Admin Aspirin 325 mg 06/26/21 09:00 Aspirin 325 Mg Tab PO DAILY LINA Magnesium Sulfate/Dextrose 1 100 mls @ 100 mls/hr 06/25/21 11:00 gm/ IV Solution IVPB 06/25/21 12:59 Q1H LINA Nitroglycerin 0.4 mg 06/25/21 06:16 Nitroglycerin Sl Tabs 0.4 Mg Tab SUBLINGUAL Q5M PRN Chest Pain Intake and Output 06/24/21 06/25/21 06/25/21 22:59 06:59 14:59 Other: Weight 133.81 kg 06/25/21 05:06 06/25/21 05:06
--- NOTE | 2021-06-25 16:21 | P.HPIM ---
History of Present Illness H&P Date: 06/25/21 This is a 76-year-old female who was recently admitted to [facility] on the [place] as she was living at [facility] and unable to take care of herself and family sent her to [facility] to have higher level of care given her extensive past medical history. Patient was brought here by EMS stating she had chest pain and cardiac workup was initiated and cardiology was consulted. 2-D echo was ordered and pending at this time. First 2 troponins have been negative and patient refusing any more blood draws. BNP was 627. Lipase was minimally elevated at 427 with no reports of abdominal discomfort noted. Magnesium was found to be 1.4 and will replace per protocol and repeat labs. Sodium is 138 with a potassium of 4.5 current creatinine is 0.7. White blood count 6.3 with a hemoglobin of 10.7 and patient is afebrile and denies any worsening shortness of breath or fevers to her knowledge. Patient does have significant past medical history of kidney cancer post nephrectomy, insulin-dependent diabetes2, heart failure, COPD, hyperlipidemia, hypertension, recent PE and DVT on Xarelto, and obstructive sleep apnea. Patient is a poor historian and most of the information was obtained by her daughter Alee along with the chart and medical record. Chest x-ray on admission shows infiltrate and atelectasis at the left lung base probably improved compared to previous exam with no obvious heart failure noted. EKG showed sinus tachycardia with incomplete right heart bridge block and repeat EKG showed normal sinus remitted with right bundle natan Block and biphasic block. Review of Systems Constitutional: Reports daytime sleepiness, Reports fatigue Cardiovascular: Reports chest pain, Reports dyspnea on exertion, Reports shortness of breath Respiratory: Reports dyspnea, Reports home oxygen, Reports sleep apnea Gastrointestinal: Denies abdominal pain, Denies diarrhea, Denies nausea, Denies vomiting Genitourinary: Denies dysuria, Denies hematuria Musculoskeletal: Denies myalgias Integumentary: Denies pruritus, Denies rash Neurological: Reports change in mentation, Reports confusion, Reports lack of coordination, Reports memory loss, Reports weakness Psychiatric: Denies anxiety, Denies depression Endocrine: Denies fatigue, Denies weight change Past Medical History Past Medical History: Cancer, Heart Failure, COPD, Diabetes Mellitus, Eye Disorder, Hyperlipidemia, Hypertension, Pneumonia Additional Past Medical History / Comment(s): Kidney cancer post-nephrectomy on the right, IDDM type II, neuropathy bilateral hands/feet, bilateral diabetic ret inopathy with legal blindness in the past but vision better since eye injections, recent diagnosis of DVT of the right lower extremity, bronchitis, home oxygen at 3L/NC ATC, chronic elevation of the left hemidiaphragm, obstructive sleep apnea currently not using device, thoracolumbar kyphoscoliosis , constipation History of Any Multi-Drug Resistant Organisms: None Reported Past Surgical History: Appendectomy, Back Surgery, Hernia Repair, Joint Re placement, Tubal Ligation Additional Past Surgical History / Comment(s): Low back surgery, total R shoulder, R nephrectomy, several abdominal hernia surgeries, colonoscopy Past Anesthesia/Blood Transfusion Reactions: No Reported Reaction Additional Past Anesthesia/Blood Transfusion Reaction / Comment(s): Pt has received blood in past without reaction. Past Psychological History: No Psychological Hx Reported Smoking Status: Never smoker Past Alcohol Use History: None Reported Past Drug Use History: None Reported - Past Family History Mother Family Medical History: Cancer Father Family Medical History: Unable to Obtain Additional Family Medical History / Comment(s): Father when pt was 1 yrs old. Medications and Allergies Home Medications Medication Instructions Recorded Confirmed Type Atorvastatin [Lipitor] 20 mg PO HS 03/28/21 06/25/21 History Furosemide [Lasix] 40 mg PO DAILY 03/28/21 06/25/21 History Sertraline [Zoloft] 50 mg PO HS 05/17/21 06/25/21 History Acetaminophen Tab [Tylenol] 650 mg PO Q4H PRN 06/25/21 06/25/21 History Azithromycin [Zithromax Z-pack (6 250 mg PO DAILY 06/25/21 06/25/21 History tabs)] Cetirizine HCl 10 mg PO HS 06/25/21 06/25/21 History Dulaglutide [Trulicity] 0.75 mg SQ SY 06/25/21 06/25/21 History Insulin Glargine,Hum.rec.anlog 25 units SQ Q12H 06/25/21 06/25/21 History [Semglee Pen] Rivaroxaban [Xarelto] 20 mg PO DAILY 06/25/21 06/25/21 History metFORMIN HCL [Glucophage] 1,000 mg PO Q12H 06/25/21 06/25/21 History Allergies Allergy/AdvReac Type Severity Reaction Status Date / Time rofecoxib [From Vioxx] AdvReac Confusion Verified 06/25/21 06:39 Physical Exam Vitals: Vital Signs Temp Pulse Resp BP Pulse Ox 06/25/21 08:00 98.0 F 94 18 126/58 98 06/25/21 06:52 96 18 133/47 100 06/25/21 06:29 89 06/25/21 06:21 89 06/25/21 05:58 87 18 117/84 100 06/25/21 04:55 20 06/25/21 04:49 98.9 F 84 18 126/76 97 Intake and Output 06/24/21 06/25/21 06/25/21 22:59 06:59 14:59 Other: Weight 133.81 kg Gen: This is a 76-year-old female awake although extremely lethargic and falls asleep easily, well developed, well nourished, morbidly obese, no acute distress HEENT: Head is atraumatic, normocephalic. Pupils equal, round. Sclerae is anicteric. NECK: Supple. No JVD. No lymphadenopathy. No thyromegaly. LUNGS: Diminished breath sounds bilaterally with no wheezing or rhonchi noted. No intercostal retractions. HEART: Regular rate and rhythm. No murmur. ABDOMEN: Soft. Obese. Bowel sounds are present. No masses. No tenderness. EXTREMITIES: No pedal edema. No calf tenderness. Bilateral lower extremity 1- 2+ pitting edema noted NEUROLOGICAL: Patient is lethargic although arousable, alert and oriented x2. Diffusely weak Results CBC & Chem 7: 06/25/21 05:06 06/25/21 05:06 Labs: Abnormal Lab Results - Last 24 Hours (Table) 06/25/21 06/25/21 Range/Units 05:06 05:06 Hgb 10.7 L (11.4-16.0) gm/dL Carbon Dioxide 33 H (22-30) mmol/L Glucose 68 L (74-99) mg/dL Magnesium 1.4 L (1.6-2.3) mg/dL Total Protein 6.2 L (6.3-8.2) g/dL Albumin 3.3 L (3.5-5.0) g/dL Lipase 427 H (23-300) U/L Thrombosis Risk Factor Assmnt - DVT/VTE Prophylaxis DVT/VTE Prophylaxis: Pharmacologic Prophylaxis ordered Assessment and Plan Assessment: Chest pain, rule out ACS, troponins negative 2 Chronic hypoxic respiratory failure, currently on 5 L at home Morbid obesity with a BMI of 55.7 Recently diagnosed pulmonary embolism and lower extremity DVT on Xarelto Diabetes mellitus, insulin-dependent Hyperlipidemia Nonspecific minimally elevated lipase, no further workup needed Hypomagnesemia at 1.4 and will replace Sleep apnea not currently using CPAP machine CHF with diastolic dysfunction most recent echo showing 50-55% EF, not in acute exacerbation COPD, not in acute exacerbation Hypertension GI prophylaxis DVT prophylaxis: On Xarelto No code Plan: Initial troponin workup 2 has been negative and patient refusing further blood draws. 2-D echo ordered and pending at this time with cardiology and pulmonary following. Patient was given IV steroids in the ER and will discontinue she is not in COPD exacerbation or CHF exacerbation. Patient is weak and altered with periods of confusion and per daughter who is her legal guardian Alee states this is her baseline. Patient was recently at [facility] she was unable to care for herself at [facility] and will require authorization with social work and case management following and will have PT/OT evaluate the patient. Awaiting 2-D echo results and will order appropriate home medications. Patient was having chest pain on admission and cardiac workup in process. Patient further denies any chest pain at this time or worsening shortness of breath. Will await and appreciate cardiology and pulmonary recommendations. Patient will be returning to [facility] on the [place] once authorization is obtained. Magne sium being replaced and will repeat a.m. labs if patient allows as she has been refusing further blood draws. Guarded prognosis. Possible discharge in 24-48 hours. Time with Patient: Greater than 30
--- NOTE | 2021-06-25 17:01 | ECHOF ---
Referral Reason:chest pain, assess EF and LV wall motion MEASUREMENTS -------- HEIGHT: 154.9 cm WEIGHT: 133.8 kg BP: 162/75 IVSd: 1.1 cm (0.6 - 1.1) LVIDd: 3.5 cm (3.9 - 5.3) LVPWd: 1.3 cm (0.6 - 1.1) IVSs: 1.4 cm LVIDs: 1.9 cm LVPWs: 1.7 cm RAP: 5.00 mmHg RVSP: 59.63 mmHg FINDINGS -------- Sinus rhythm. Limited Study The left ventricular size is normal. There is mild concentric left ventricular hypertrophy. Overa ll left ventricular systolic function is normal with, an EF between 55 - 60 %. Attempted Lumason. There is no pericardial effusion. CONCLUSIONS -------- 1. The left ventricular size is normal. 2. There is mild concentric left ventricular hypertrophy. 3. Overall left ventricular systolic function is normal with, an EF between 55 - 60 %. MANAGER PARK: Marilyn Malagon, [facility]
[2021-06-25 17:18] LABS: Glucose,Whole Blood 246 mg/dL (75-99)
[2021-06-25] MEDS: metFORMIN 500 MG TAB PO SCH (17:23)
[2021-06-25 20:11] LABS: Glucose,Whole Blood 346 mg/dL (75-99)
[2021-06-25] MEDS: ATORVASTATIN 20 MG TAB PO SCH (21:29)
[2021-06-25] MEDS: SERTRALINE 50 MG TAB PO SCH (21:29)
[2021-06-25] MEDS: INSULIN DETEMIR (LEVEMIR) 100 UNIT/ML SYR SQ SCH (21:29)
[2021-06-25] MEDS: LORATADINE 10 MG TAB PO SCH (21:29)
[2021-06-26 06:44] LABS: African American GFR (CKD) >90 (>60 ml/min/1.73 sqM); Anion Gap 7 mmol/L; Blood Urea Nitrogen 22 mg/dL (7-17); Calcium 8.6 mg/dL (8.4-10.2); Carbon Dioxide 33 mmol/L (22-30); Chloride 97 mmol/L (98-107); Glucose 177 mg/dL (74-99); Magnesium 1.8 mg/dL (1.6-2.3); Non-African American GFR(CKD) 86 (>60 ml/min/1.73 sqM); Sodium 137 mmol/L (137-145)
[2021-06-26 06:47] LABS: Potassium 4.9 mmol/L (3.5-5.1)
[2021-06-26 07:39] LABS: Glucose,Whole Blood 132 mg/dL (75-99)
[2021-06-26] MEDS: RIVAROXABAN 20 MG TAB PO SCH (08:40)
[2021-06-26] MEDS: INSULIN DETEMIR (LEVEMIR) 100 UNIT/ML SYR SQ SCH ×2 (08:40→20:49)
[2021-06-26] MEDS: ASPIRIN 81 MG PO SCH (08:40)
[2021-06-26] MEDS: metFORMIN 500 MG TAB PO SCH ×2 (08:40→17:39)
[2021-06-26] MEDS: FUROSEMIDE 40 MG TAB PO SCH (08:40)
[2021-06-26] MEDS ORDERED: AZITHROMYCIN 250 MG TAB PO SCH (09:00)
[2021-06-26] MEDS ORDERED: ASPIRIN 325 MG TAB PO SCH (09:00)
--- NOTE | 2021-06-26 11:33 | P.PN ---
Subjective HISTORY OF PRESENT ILLNESS: This is a 76-year-old female with a past medical history significant for COPD with home oxygen use, pulmonary embolism and DVT on anticoagulation with Xarelto, renal cancer with previous nephrectomy, diabetes, and hyperlipidemia. Patient does not follow with a solution professional. We have been asked to see the patient in consultation for chest pain. Patient examined at the bedside. Patient appears to be confused and is lethargic at the time of examination. She states she does not want to answer anymore questions. The patient did tell me she has been having chest pain for the past 2 days. She reports the pain was intermittent. She believes the pain went down her arms. She thinks that she was short of breath at the time as well. The patient states she is currently having some mild chest pain but immediately afterwards she falls right back asleep. Apparently she has been refusing to have any more blood drawn. EKG reveals sinus tachycardia. Heart rate 102. Incomplete right bundle branch block. No signs of acute ischemia. Chest xray infiltrates and atelectasis at the left lung base probably improved compared to exam. No obvious heart failure. Laboratory data: WBC 6.3. Hemoglobin 10.7. Platelet count 211. Sodium 138. Potassium 4.5. BUN 16. Creatinine 0.70. Magnesium 1.4. Troponin negative 2. ProBNP 627. Current home cardiac medications include Xarelto 20 mg daily, Lasix 40 mg daily, and Lipitor 20 mg at night Most recent echocardiogram obtained in May 2021 revealed ejection fraction 50- 55%. Right ventricle severely enlarged. Right ventricular septal wall is flattened in diastole which is consistent with right ventricular volume overload. Mild aortic stenosis. Mild mitral regurgitation. Moderate to severe tricuspid regurgitation. Severe pulmonary hypertension with RVSP of 83.37 mmHg. 06/26 Patient seen and examined. Patient denies any further chest pain. She states she has been up walking and no shortness of breath. She remains somewhat confused. Limited 2-D echo shows preserved left ventricular ejection fraction. PHYSICAL EXAM: VITAL SIGNS: Reviewed. GENERAL: Well-developed in no acute distress. HEENT: Head is normocephalic. Pupils are equal, round. Sclerae anicteric. Mucous membranes of the mouth are moist. Neck supple. No JVD or thyromegaly LUNGS: Respirations even and unlabored. Lungs diminished clear to auscultation bilaterally. Patient unable to sit up to listen to her lungs posteriorly. HEART: Regular rate and rhythm. S1 and S2 heard. Systolic murmur noted. ABDOMEN: Soft. Nondistended. Nontender. EXTREMITIES: Normal range of motion. No clubbing or cyanosis. Peripheral pulses intact. No lower extremity edema NEUROLOGIC: Lethargic. Appears confused during conversation. ASSESSMENT: Chest pain, troponins negative 2 Chronic hypoxic respiratory failure, on home oxygen Recent diagnosis of bilateral pulmonary embolism, per CT scan in March 2021 History of renal cancer status post nephrectomy History of DVT Diabetes Hyperlipidemia Morbid obesity BMI 55.7 PLAN: Patient's chest pain is atypical and has since improved. Acute coronary syndrome has been ruled out. Echo with preserved left ventricular ejection fraction. Patient appears at her baseline and we will continue with current medical therapy. Patient stable for discharge home from a cardiology standpoint. Objective - Vital Signs Vital signs: Vital Signs Temp 98.3 F 06/26/21 07:00 Pulse 71 06/26/21 07:00 Resp 18 06/26/21 07:00 BP 121/74 06/26/21 07:00 Pulse Ox 97 06/26/21 07:00 Intake & Output 06/25/21 06/26/21 06/26/21 18:59 06:59 18:59 Intake Total 200 236 Balance 200 236 Intake: Intake, IV Titration 200 Amount Magnesium Sulfate-D5w Pmx 200 1 gm In Dextrose/Water 1 100ml.bag @ 100 mls/hr IVPB Q1H [facility] Rx#: [id number] Oral 236 Other: Voiding Method Bedside Commode # Voids 4 # Bowel Movements 1 - Labs CBC & Chem 7: 06/25/21 05:06 06/26/21 06:08 Labs: Abnormal Lab Results - Last 24 Hours (Table) 06/25/21 06/25/21 06/26/21 Range/Units 17:17 20:10 06:08 Chloride 97 L (98-107) mmol/L Carbon Dioxide 33 H (22-30) mmol/L BUN 22 H (7-17) mg/dL Glucose 177 H (74-99) mg/dL POC Glucose (mg/dL) 246 H 346 H (75-99) mg/dL 06/26/21 Range/Units 07:37 Chloride (98-107) mmol/L Carbon Dioxide (22-30) mmol/L BUN (7-17) mg/dL Glucose (74-99) mg/dL POC Glucose (mg/dL) 132 H (75-99) mg/dL
[2021-06-26 12:12] LABS: Glucose,Whole Blood 129 mg/dL (75-99)
[2021-06-26 12:21] LABS: Chol/HDL Ratio 2.88; Cholesterol 144 mg/dL (0-200); LDL Cholesterol,Calculated 80.6 mg/dL (0.0-131.0)
--- NOTE | 2021-06-26 12:36 | P.DS ---
Providers Date of admission: 06/25/21 06:18 Attending physician: Han Viveros Consults: 06/25/21 06:16 Consult Physician Urgent Consulting Provider: Rae Vergara Consult Reason/Comments: cp Do you want consulting provider notified?: Yes 06/25/21 06:52 Consult Physician Routine Consulting Provider: Giuseppe Gómez Consult Reason/Comments: sob & chr. hypoxia and chr. left diaphragm elevated and chr. consolidation Do you want consulting provider notified?: Yes Primary care physician: Kip Hilario [facility] Course: 76-year-old female who was recently admitted to [facility] on the [place] as she was living at [facility] and unable to take care of herself and family sent her to [facility] to have higher level of care given her extensive past medical hist ory. Patient was brought here by EMS stating she had chest pain and cardiac workup was initiated and cardiology was consulted. 2-D echo was ordered and pending at this time. First 2 troponins have been negative and patient refusing any more blood draws. BNP was 627. Lipase was minimally elevated at 427 with no reports of abdominal discomfort noted. Magnesium was found to be 1.4 and will replace per protocol and repeat labs. Sodium is 138 with a potassium of 4.5 current creatinine is 0.7. White blood count 6.3 with a hemoglobin of 10.7 and patient is afebrile and denies any worsening shortness of breath or fevers to her knowledge. Patient does have significant past medical history of kidney cancer post nephrectomy, insulin-dependent diabetes2, heart failure, COPD, hyperlipidemia, hypertension, recent PE and DVT on Xarelto, and obstructive sleep apnea. Patient is a poor historian and most of the information was obtained by her daughter Alee along with the chart and medical record. Chest x-ray on admission shows infiltrate and atelectasis at the left lung base probably improved compared to previous exam with no obvious heart failure noted. EKG showed sinus tachycardia with incomplete right heart bridge block and repeat EKG showed normal sinus remitted with right bundle natan Block and biphasic block. 06/26/2021 Patient was evaluated by cardiology, patient chest pain is atypical echocardiogram did not show any significant abnormalities because of which patient was cleared for discharge patient will be discharged today to subacute rehab. Gen: This is a 76-year-old female awake although extremely lethargic and falls asleep easily, well developed, well nourished, morbidly obese, no acute distress HEENT: Head is atraumatic, normocephalic. Pupils equal, round. Sclerae is anicteric. NECK: Supple. No JVD. No lymphadenopathy. No thyromegaly. LUNGS: Diminished breath sounds bilaterally with no wheezing or rhonchi noted. No intercostal retractions. HEART: Regular rate and rhythm. No murmur. ABDOMEN: Soft. Obese. Bowel sounds are present. No masses. No tenderness. EXTREMITIES: No pedal edema. No calf tenderness. Bilateral lower extremity 1- 2+ pitting edema noted NEUROLOGICAL: Patient is lethargic although arousable, alert and oriented x2. Diffusely weak Assessment and Plan Assessment: Chest pain, rule out ACS, troponins negative 2, chest pain is atypical cleared by cardiology patient will be discharged today Chronic hypoxic respiratory failure, currently on 5 L at home Morbid obesity with a BMI of 55.7 Recently diagnosed pulmonary embolism and lower extremity DVT on Xarelto Diabetes mellitus, insulin-dependent Hyperlipidemia Nonspecific minimally elevated lipase, no further workup needed Hypomagnesemia at 1.4 and will replace Sleep apnea not currently using CPAP machine CHF with diastolic dysfunction most recent echo showing 50-55% EF, not in acute exacerbation COPD, not in acute exacerbation Hypertension GI prophylaxis No code Patient Condition at Discharge: Fair Plan - Discharge Summary Discharge Rx Participant: No New Discharge Prescriptions: New Nitroglycerin Sl Tabs [Nitrostat] 0.4 mg SUBLINGUAL Q5M PRN tab PRN Reason: Chest Pain Aspirin 81 mg PO DAILY chew Continue Acetaminophen Tab [Tylenol] 650 mg PO Q4H PRN PRN Reason: Mild Pain Insulin Glargine,Hum.rec.anlog [Semglee Pen] 25 units SQ Q12H metFORMIN HCL [Glucophage] 1,000 mg PO Q12H Rivaroxaban [Xarelto] 20 mg PO DAILY Furosemide [Lasix] 40 mg PO DAILY Atorvastatin [Lipitor] 20 mg PO HS Sertraline [Zoloft] 50 mg PO HS Dulaglutide [Trulicity] 0.75 mg SQ SY Cetirizine HCl 10 mg PO HS Discharge Medication List Atorvastatin [Lipitor] 20 mg PO HS 03/28/21 [History] Furosemide [Lasix] 40 mg PO DAILY 03/28/21 [History] Sertraline [Zoloft] 50 mg PO HS 05/17/21 [History] Acetaminophen Tab [Tylenol] 650 mg PO Q4H PRN 06/25/21 [History] Cetirizine HCl 10 mg PO HS 06/25/21 [History] Dulaglutide [Trulicity] 0.75 mg SQ SY 06/25/21 [History] Insulin Glargine,Hum.rec.anlog [Semglee Pen] 25 units SQ Q12H 06/25/21 [History] Rivaroxaban [Xarelto] 20 mg PO DAILY 06/25/21 [History] metFORMIN HCL [Glucophage] 1,000 mg PO Q12H 06/25/21 [History] Aspirin 81 mg PO DAILY chew 06/26/21 [Rx] Nitroglycerin Sl Tabs [Nitrostat] 0.4 mg SUBLINGUAL Q5M PRN tab 06/26/21 [Rx] Follow up Appointment(s)/Referral(s): Caleb Tsang MD [STAFF PHYSICIAN] - 1 Week Kip Bishop III, MD [Primary Care Provider] - 3 Days Activity/Diet/Wound Care/Special Instructions: Patient is returning to [facility] on the [place] Activity as tolerated continue with accuchecks achs consistent carb heart healthy diet follow up with primary care provider outpatient follow up with cardiology outpatient Discharge Disposition: TRANSFER TO SNF/ECF
--- NOTE | 2021-06-26 13:15 | P.PN ---
Subjective Progress Note Date: 06/26/21 Principal diagnosis: 76-year-old black female, who resides at [facility] on the [facility], and sees Dr. Bishop as a primary, comes into the emergency room on June 25 at near ly 5:00 in the morning, complaining of chest, shoulder, and back pain. The pain apparently was 4 on the scale of 1-10. She admits to tightness and the pain is intermittent, and apparently improves and worsens with nothing. She apparently also told the ER physician that she had some shortness of breath, and cough. She was very sleepy and lethargic we saw her in the emergency department. In my opinion, she was not a very good historian. She can really not give us much in the way of details as it relates to her symptoms. She did smoke for many years. Maybe 30 or so, at 2 packs a day. Does not smoke currently. She does have a history of sleep apnea syndrome, and uses CPAP. In addition, the patient is got chronic hypoxemic respiratory failure, and does use oxygen 24/7, at 5 L/m. She is currently on 5 L here in the emergency department and saturations are 92%. White count 6.3, hemoglobin 10.7, hematocrit 34.3, platelet count 211,000. ET/INR/PTT are normal. Sodium 138, potassium 4.5, chlorides 100, CO2 33, anion gap 5, BUN 16, creatinine 0.7. Lipase was elevated at 427. Troponins were negative 2. BNP was 627. Chest x-ray shows infiltrate and atelectasis at the left lung base, and is improved compared to her previous x-ray done in May of this year. The patient is seen today 06/26/2021 in follow-up on the regular medical floor. She is currently up in the room. Awake and alert in no acute distress. Denies any worsening shortness of breath, cough or congestion. No chest pain. Maintaining O2 saturations in the mid to upper 90s on 4 L/m per nasal cannula. She's been afebrile. Hemodynamically stable. Echocardiogram revealed preserved left ventricular systolic function with ejection fraction 55-60%. Sodium 137. Potassium 4.9. Creatinine 0.65. Remains on oral diuretics. Anticoagulated with Xarelto. Objective - Vital Signs Vital signs: Vital Signs Temp 98.3 F 06/26/21 07:00 Pulse 71 06/26/21 07:00 Resp 18 06/26/21 07:00 BP 121/74 06/26/21 07:00 Pulse Ox 97 06/26/21 07:00 Intake & Output 06/25/21 06/26/21 06/26/21 18:59 06:59 18:59 Intake Total 200 236 Balance 200 236 Intake: Intake, IV Titration 200 Amount Magnesium Sulfate-D5w Pmx 200 1 gm In Dextrose/Water 1 100ml.bag @ 100 mls/hr IVPB Q1H [facility] Rx#: [id number] Oral 236 Other: Voiding Method Bedside Commode # Voids 4 # Bowel Movements 1 - Exam GENERAL EXAM: Alert, pleasant 76-year-old female patient, on 4 L nasal cannula, comfortable in no apparent distress. HEAD: Normocephalic. EYES: Normal reaction of pupils, equal size. NOSE: Clear with pink turbinates. THROAT: No erythema or exudates. NECK: No masses, no JVD. CHEST: No chest wall deformity. LUNGS: Equal air entry with no crackles, wheeze, rhonchi or dullness. CVS: S1 and S2 normal with no audible murmur, regular rhythm. ABDOMEN: No hepatosplenomegaly, normal bowel sounds, no guarding or rigidity. SPINE: No scoliosis or deformity SKIN: No rashes CENTRAL NERVOUS SYSTEM: No focal deficits, tone is normal in all 4 extremities. EXTREMITIES: There is no peripheral edema. No clubbing, no cyanosis. Periphe ral pulses are intact. - Labs CBC & Chem 7: 06/25/21 05:06 06/26/21 06:08 Labs: Abnormal Lab Results - Last 24 Hours (Table) 06/25/21 06/25/21 06/26/21 Range/Units 17:17 20:10 06:08 Chloride 97 L (98-107) mmol/L Carbon Dioxide 33 H (22-30) mmol/L BUN 22 H (7-17) mg/dL Glucose 177 H (74-99) mg/dL POC Glucose (mg/dL) 246 H 346 H (75-99) mg/dL 06/26/21 06/26/21 Range/Units 07:37 12:11 Chloride (98-107) mmol/L Carbon Dioxide (22-30) mmol/L BUN (7-17) mg/dL Glucose (74-99) mg/dL POC Glucose (mg/dL) 132 H 129 H (75-99) mg/dL Assessment and Plan Assessment: 1 Atypical chest pain of unclear etiology. 2 COPD, not particularly active this time. 3 Chronic hypoxemic respiratory failure, currently on 5 L nasal cannula, . 4 History of congestive heart failure. 5 Diabetes mellitus. 6 History of hyperlipidemia. 7 History of hypertension. 8 Hypernephroma, status post right nephrectomy. 9 History of diabetic neuropathy and retinopathy. 10 Recent diagnosis of DVT of the right lower extremity. 11 Chronic elevation of left hemidiaphragm. 12 History of obstructive sleep apnea syndrome, potentially noncompliant with CPAP. Plan: The patient was seen and evaluated by Dr. Gómez Cleared for discharge from the pulmonary standpoint Continue pulmonary medications Plan is for transfer back to [facility] on the [place], the cosigning physician, performed a history & physical examination of the patient. Lungs sounds are clear. Maintaining good O2 saturations in the 90s on room air. I discussed the assessment and plan of care with my nurse practitioner, Christine Spencer. I attest to the above note as dictated by her.
[2021-06-26 17:22] LABS: Glucose,Whole Blood 99 mg/dL (75-99)
[2021-06-26 20:15] LABS: Glucose,Whole Blood 161 mg/dL (75-99)
[2021-06-26] MEDS: LORATADINE 10 MG TAB PO SCH (20:49)
[2021-06-26] MEDS: ATORVASTATIN 20 MG TAB PO SCH (20:49)
[2021-06-26] MEDS: SERTRALINE 50 MG TAB PO SCH (20:49)
[2021-06-27 07:17] LABS: Glucose,Whole Blood 44 mg/dL (75-99)
[2021-06-27 07:40] LABS: Glucose,Whole Blood 62 mg/dL (75-99)
[2021-06-27 08:05] LABS: Glucose,Whole Blood 92 mg/dL (75-99)
[2021-06-27] MEDS: ASPIRIN 81 MG PO SCH (08:11)
[2021-06-27] MEDS: FUROSEMIDE 40 MG TAB PO SCH (08:11)
[2021-06-27] MEDS: metFORMIN 500 MG TAB PO SCH ×2 (08:11→17:53)
[2021-06-27] MEDS: INSULIN DETEMIR (LEVEMIR) 100 UNIT/ML SYR SQ SCH (08:11)
[2021-06-27] MEDS: RIVAROXABAN 20 MG TAB PO SCH (08:11)
[2021-06-27] MEDS ORDERED: NON FORMULARY DRUG (Dulaglutide [Trulicity] 0.75 MG/0.5 ML Pen.Injctr) SQ SCH (09:00)
--- NOTE | 2021-06-27 11:30 | P.PN ---
Subjective 76-year-old female who was recently admitted to [facility] on the [place] as she was living at [facility] and unable to take care of herself and family sent her to [facility] to have higher level of care given her extensive past medical history. Patient was brought here by EMS stating she had chest pain and cardiac workup was initiated and cardiology was consulted. 2-D echo was ordered and pending at this time. First 2 troponins have been negative and patient refusing any more blood draws. BNP was 627. Lipase was minimally elevated at 427 with no reports of abdominal discomfort noted. Magnesium was found to be 1.4 and will replace per protocol and repeat labs. Sodium is 138 with a potassium of 4.5 current creatinine is 0.7. White blood count 6.3 with a hemoglobin of 10.7 and patient is afebrile and denies any worsening shortness of breath or fevers to her knowledge. Patient does have significant past medical history of kidney cancer post nephrectomy, insulin-dependent diabetes2, heart failure, COPD, hyperlipidemia, hypertension, recent PE and DVT on Xarelto, and obstructive sleep apnea. Patient is a poor historian and most of the information was obtained by her daughter Alee along with the chart and medical record. est x-ray on admission shows infiltrate and atelectasis at the left lung base probably improved compared to previous exam with no obvious heart failure noted. EKG showed sinus tachycardia with incomplete right heart bridge block and repeat EKG showed normal sinus remitted with right bundle natan Block and biphasic block. 06/26/2021 Patient was evaluated by cardiology, patient chest pain is atypical echocardiogram did not show any significant abnormalities because of which patient was cleared for discharge patient will be discharged today to subacute rehab. 06/27/2021 Patient is awaiting prior authorization from insurance company to be discharged back to subacute rehab. Patient blood sugars although her low will cut down the long-acting insulin to once a day from twice a day. Constitutional: Denied any fatigue denied any fever. Cardio vascular: denied any chest pain, palpitations Gastrointestinal denied any nausea vomiting Pulmonary: Denied any shortness of breath cough Neurologic denied any new focal deficits All inpatient medications were reviewed and appropriate changes in these medications as dictated in the interval history and assessment and plan. Gen: This is a 76-year-old female awake although extremely lethargic and falls asleep easily, well developed, well nourished, morbidly obese, no acute distress HEENT: Head is atraumatic, normocephalic. Pupils equal, round. Sclerae is anicteric. NECK: Supple. No JVD. No lymphadenopathy. No thyromegaly. LUNGS: Diminished breath sounds bilaterally with no wheezing or rhonchi noted. No intercostal retractions. HEART: Regular rate and rhythm. No murmur. ABDOMEN: Soft. Obese. Bowel sounds are present. No masses. No tenderness. EXTREMITIES: No pedal edema. No calf tenderness. Bilateral lower extremity 1- 2+ pitting edema noted NEUROLOGICAL: Patient is lethargic although arousable, alert and oriented x2. Diffusely weak Assessment and Plan Assessment: Chest pain, rule out ACS, troponins negative 2, chest pain is atypical cleared by cardiology, patient awake eating prior authorization from insurance to be discharged to subacute rehab. Chronic hypoxic respiratory failure, currently on 5 L at home Morbid obesity with a BMI of 55.7 Recently diagnosed pulmonary embolism and lower extremity DVT on Xarelto Diabetes mellitus, insulin-dependent Hyperlipidemia Nonspecific minimally elevated lipase, no further workup needed Hypomagnesemia at 1.4 and will replace Sleep apnea not currently using CPAP machine CHF with diastolic dysfunction most recent echo showing 50-55% EF, not in acute exacerbation COPD, not in acute exacerbation Hypertension GI prophylaxis No code Objective - Vital Signs Vital signs: Vital Signs Temp 97.6 F 06/27/21 07:00 Pulse 82 06/27/21 07:00 Resp 17 06/27/21 07:00 BP 113/59 06/27/21 07:00 Pulse Ox 97 06/27/21 07:00 Intake & Output 06/26/21 06/27/21 06/27/21 18:59 06:59 18:59 Intake Total 1012 354 Output Total 0 Balance 1012 354 Intake: Oral 1012 354 Output: Urine 0 Other: Voiding Method Bedside Commode # Voids 6 - Labs CBC & Chem 7: 06/25/21 05:06 06/26/21 06:08 Labs: Abnormal Lab Results - Last 24 Hours (Table) 06/26/21 06/26/21 06/27/21 Range/Units 12:11 20:14 07:15 POC Glucose (mg/dL) 129 H 161 H 44 L (75-99) mg/dL 06/27/21 Range/Units 07:38 POC Glucose (mg/dL) 62 L (75-99) mg/dL
[2021-06-27 11:33] LABS: Glucose,Whole Blood 113 mg/dL (75-99)
[2021-06-27 17:30] LABS: Glucose,Whole Blood 73 mg/dL (75-99)
[2021-06-27] MEDS: SERTRALINE 50 MG TAB PO SCH (19:48)
[2021-06-27] MEDS: LORATADINE 10 MG TAB PO SCH (19:48)
[2021-06-27] MEDS: ATORVASTATIN 20 MG TAB PO SCH (19:48)
[2021-06-27 21:08] LABS: Glucose,Whole Blood 132 mg/dL (75-99)
[2021-06-28 07:24] LABS: Glucose,Whole Blood 78 mg/dL (75-99)
[2021-06-28 07:40] VITALS: BP 174/73; PULSE 79; RESP 17; TEMP 98.6
[2021-06-28] MEDS: metFORMIN 500 MG TAB PO SCH ×2 (07:50→11:47)
[2021-06-28] MEDS: RIVAROXABAN 20 MG TAB PO SCH (07:50)
[2021-06-28] MEDS: FUROSEMIDE 40 MG TAB PO SCH (07:50)
[2021-06-28] MEDS: ASPIRIN 81 MG PO SCH (07:50)
[2021-06-28] MEDS: INSULIN DETEMIR (LEVEMIR) 100 UNIT/ML SYR SQ SCH ×2 (07:50→11:48)
--- NOTE | 2021-06-28 11:33 | P.DS ---
Providers Date of admission: 06/25/21 06:18 Expected date of discharge: 06/28/21 Attending physician: Han Viveros Consults: 06/25/21 06:52 Consult Physician Routine Consulting Provider: Giuseppe Gómez Reason/Comments: sob & chr. hypoxia and chr. left diaphragm elevated and chr. consolidation Do you want consulting provider notified?: Yes Primary care physician: Kip Bishop Hospital Course: Final diagnosis Discharge disposition Patient is being discharged in a stable condition with guarded prognosis to [facility] for continued PT/OT therapy. Patient will follow-up with Dr. Tsang in the outpatient setting upon discharge. Patient to follow with Dr. Bishop once discharged from [facility]. Patient is to follow-up with cardiology and pulmonary outpatient as scheduled. Total time taken is greater than 35 minutes. Hospital course 76-year-old female who was recently admitted to [facility] as she was living at [facility] and unable to take care of herself and family sent her to [facility] to have higher level of care given her extensive past medical history. Patient was brought here by EMS stating she had chest pain and cardiac workup was initiated and cardiology was consulted. 2-D echo was ordered and pending at this time. First 2 troponins have been negative and patient refusing any more blood draws. BNP was 627. Lipase was minimally elevated at 427 with no reports of abdominal discomfort noted. Magnesium was found to be 1.4 and will replace per protocol and repeat labs. Sodium is 138 with a potassium of 4.5 current creatinine is 0.7. White blood count 6.3 with a hemoglobin of 10.7 and patient is afebrile and denies any worsening shortness of breath or fevers to her knowledge. Patient does have significant past medical history of kidney cancer post nephrectomy, insulin-dependent diabetes2, heart failure, COPD, hyperlipidemia, hypertension, recent PE and DVT on Xarelto, and obstructive sleep apnea. Patient is a poor historian and most of the information was obtained by her daughter Alee along with the chart and medical record. Chest x-ray on admission shows infiltrate and atelectasis at the left lung base probably improved compared to previous exam with no obvious heart failure noted. EKG showed sinus tachycardia with incomplete right heart bridge block and repeat EKG showed normal sinus remitted with right bundle natan Block and biphasic block. 06/26/2021 Patient was evaluated by cardiology, patient chest pain is atypical echocardiogram did not show any significant abnormalities because of which patient was cleared for discharge patient will be discharged today to subacute rehab. 06/28/2021 Patient is seen in follow-up with no acute overnight issues noted. Patient denies any shortness of breath or chest pain and is anticipating being discharged back to [facility]. Patient continue current medication regimen and instructed to follow-up outpatient with cardiology and pulmonary as needed. Authorization has been obtained for insurance and will be returning to [facility] on the [place]. Currently no reports of chest pain, shortness of breath, or palpitations. Patient is afebrile. No reports of nausea or vomiting and patient is tolerating diet. Gen: This is a 76-year-old female awake , falls asleep easily, well developed, well nourished, morbidly obese, no acute distress. On exam vital signs are stable. HEENT: Head is atraumatic, normocephalic. Pupils equal, round. Sclerae is anicteric. NECK: Supple. No JVD. No lymphadenopathy. No thyromegaly. LUNGS: Diminished breath sounds bilaterally with no wheezing or rhonchi noted. No intercostal retractions. HEART: Regular rate and rhythm. No murmur. ABDOMEN: Soft. Obese. Bowel sounds are present. No masses. No tenderness. EXTREMITIES: No pedal edema. No calf tenderness. Bilateral lower extremity 1- 2+ pitting edema noted NEUROLOGICAL: Patient is lethargic although arousable, alert and oriented x2. Diffusely weak Please refer to medication reconciliation sheet for a list of medications. Patient Condition at Discharge: Fair Plan - Discharge Summary Discharge Rx Participant: No New Discharge Prescriptions: New Nitroglycerin Sl Tabs [Nitrostat] 0.4 mg SUBLINGUAL Q5M PRN tab PRN Reason: Chest Pain Aspirin 81 mg PO DAILY chew Continue Acetaminophen Tab [Tylenol] 650 mg PO Q4H PRN PRN Reason: Mild Pain Insulin Glargine,Hum.rec.anlog [Semglee Pen] 25 units SQ Q12H metFORMIN HCL [Glucophage] 1,000 mg PO Q12H Rivaroxaban [Xarelto] 20 mg PO DAILY Furosemide [Lasix] 40 mg PO DAILY Atorvastatin [Lipitor] 20 mg PO HS Sertraline [Zoloft] 50 mg PO HS Dulaglutide [Trulicity] 0.75 mg SQ SY Cetirizine HCl 10 mg PO HS Discharge Medication List Atorvastatin [Lipitor] 20 mg PO HS 03/28/21 [History] Furosemide [Lasix] 40 mg PO DAILY 03/28/21 [History] Sertraline [Zoloft] 50 mg PO HS 05/17/21 [History] Acetaminophen Tab [Tylenol] 650 mg PO Q4H PRN 06/25/21 [History] Cetirizine HCl 10 mg PO HS 06/25/21 [History] Dulaglutide [Trulicity] 0.75 mg SQ SY 06/25/21 [History] Insulin Glargine,Hum.rec.anlog [Semglee Pen] 25 units SQ Q12H 06/25/21 [History] Rivaroxaban [Xarelto] 20 mg PO DAILY 06/25/21 [History] metFORMIN HCL [Glucophage] 1,000 mg PO Q12H 06/25/21 [History] Aspirin 81 mg PO DAILY chew 06/26/21 [Rx] Nitroglycerin Sl Tabs [Nitrostat] 0.4 mg SUBLINGUAL Q5M PRN tab 06/26/21 [Rx] Follow up Appointment(s)/Referral(s): Caleb Tsang MD [STAFF PHYSICIAN] - 1 Week Kip Bishop III, MD [Primary Care Provider] - 3 Days Activity/Diet/Wound Care/Special Instructions: Patient is returning to [facility] on the [place] Activity as tolerated continue with accuchecks achs consistent carb heart healthy diet follow up with primary care provider outpatient follow up with cardiology outpatient Discharge Disposition: TRANSFER TO SNF/ECF
[2021-06-28 11:45] LABS: Glucose,Whole Blood 220 mg/dL (75-99)
== END 2021-06-28 13:30 ==
LOC: EEVIPCON 04:47 → EC 04:47 → 6NMEDSUR 06:18
PROVIDERS: ADMIT Hospitalist; ATTEND Hospitalist
DX: R07.89 Other chest pain (principal); J96.11 Chronic respiratory failure with hypoxia; Z68.43 Body mass index [BMI] 50.0-59.9, adult; E66.01 Morbid (severe) obesity due to excess calories; E11.40 Type 2 diabetes mellitus with diabetic neuropathy, unspecified; E11.319 Type 2 diabetes mellitus with unspecified diabetic retinopathy without macular edema; E78.5 Hyperlipidemia, unspecified; G47.30 Sleep apnea, unspecified; H54.8 Legal blindness, as defined in USA; I11.0 Hypertensive heart disease with heart failure; I26.99 Other pulmonary embolism without acute cor pulmonale; I45.10 Unspecified right bundle-branch block; I50.30 Unspecified diastolic (congestive) heart failure; I82.401 Acute embolism and thrombosis of unspecified deep veins of right lower extremity; J44.1 Chronic obstructive pulmonary disease with (acute) exacerbation; J98.11 Atelectasis; Z79.01 Long term (current) use of anticoagulants; Z79.4 Long term (current) use of insulin; Z79.82 Long term (current) use of aspirin; Z79.899 Other long term (current) drug therapy; Z85.528 Personal history of other malignant neoplasm of kidney; Z87.891 Personal history of nicotine dependence; Z90.5 Acquired absence of kidney
CPT/HCPCS: 99285; 96365; 96366; 96375; 36415; 94640; 93005; 93308; 97116; 97162; 97166; 83880; 80061; 80053; 80048; 83690; 83735 ×2; 84484; 85025; 85610; 85730; 71046; G0378 ×4; J2930; J3475

== ENCOUNTER 2021-08-05 11:15 | Observation (INO) | payer MEDICARE ==
[2021-08-05] MEDS ORDERED: methylPREDNISolone SOD SUCCI 125 MG/2 ML VIAL IV STA (12:00)
[2021-08-05] MEDS ORDERED: ALBUTEROL NEBULIZED 2.5 MG/3 ML INHALATION STA ×2 (12:00→12:27)
[2021-08-05] MEDS ORDERED: IPRATROPIUM-ALBUTEROL 3 ML NEB INHALATION STA (12:00)
--- NOTE | 2021-08-05 12:05 | ED ---
General Adult HPI - General Chief complaint: Shortness of Breath Stated complaint: AMS Time Seen by Provider: 08/05/21 11:31 Source: patient, EMS, RN notes reviewed, old records reviewed Mode of arrival: EMS Limitations: no limitations - History of Present Illness Initial comments: 76-year-old female history of CHF and COPD presenting with an episode of confusion, hypoxia. Patient is a poor historian. She does report dyspnea and cough. She is in moderate respiratory distress upon arrival. According to EMS she had been found confused by staff, and was hypoxic at that time. No reported fever. No vomiting. No central chest pain. - Related Data Home Medications Medication Instructions Recorded Confirmed Atorvastatin [Lipitor] 20 mg PO HS 03/28/21 08/05/21 Furosemide [Lasix] 40 mg PO DAILY 03/28/21 08/05/21 Acetaminophen Tab [Tylenol] 650 mg PO Q4H PRN 06/25/21 08/05/21 Cetirizine HCl 10 mg PO HS 06/25/21 08/05/21 Insulin Glargine,Hum.rec.anlog 10 units SQ DAILY@0800 06/25/21 08/05/21 [Semglee Pen] Rivaroxaban [Xarelto] 20 mg PO DAILY 06/25/21 08/05/21 metFORMIN HCL [Glucophage] 1,000 mg PO Q12H 06/25/21 08/05/21 Glucerna Shake 240 ml PO TID@0600,1200,1700 08/05/21 08/05/21 Insulin Lispro [humaLOG Kwikpen] See Protocol SQ AC-TID 08/05/21 08/05/21 Mag Hydrox/Aluminum Hyd/Simeth 10 ml PO Q4H PRN 08/05/21 08/05/21 [Mylanta Maximum Strength Liq] Magnesium Hydroxide [Milk of 2,400 mg PO ONCE@0830 08/05/21 08/05/21 Magnesia] Melatonin 3 mg PO HS 08/05/21 08/05/21 Na Phos,M-B/Na Phos,Di-Ba [Fleet 133 ml RECTAL ONCE@2100 08/05/21 08/05/21 Adult] Psyllium Husk 100% [Metamucil 6 gm PO DAILY 08/05/21 08/05/21 Packet] Semaglutide [Ozempic] 0.25 mg SQ TU 08/05/21 08/05/21 bisacodyL [Dulcolax] 10 mg RECTAL ONCE@1430 08/05/21 08/05/21 Previous Rx's Medication Instructions Recorded Aspirin 81 mg PO DAILY chew 06/26/21 Nitroglycerin Sl Tabs [Nitrostat] 0.4 mg SUBLINGUAL Q5M PRN tab 06/26/21 Allergies Allergy/AdvReac Type Severity Reaction Status Date / Time rofecoxib [From Vioxx] AdvReac Confusion Verified 08/05/21 12:48 Review of Systems ROS Statement: Those systems with pertinent positive or pertinent negative responses have been documented in the HPI. ROS Other: All systems not noted in ROS Statement are negative. Past Medical History Past Medical History: Cancer, Heart Failure, COPD, Diabetes Mellitus, Eye Disorder, Hyperlipidemia, Hypertension, Pneumonia Additional Past Medical History / Comment(s): Kidney cancer post-nephrectomy on the right, IDDM type II, neuropathy bilateral hands/feet, bilateral diabetic retinopathy with legal blindness in the past but vision better since eye injections, recent diagnosis of DVT of the right lower extremity, bronchitis, home oxygen at 3L/NC ATC, chronic elevation of the left hemidiaphragm, obstructive sleep apnea currently not using device, thoracolumbar kyphoscoliosis, constipation History of Any Multi-Drug Resistant Organisms: None Reported Past Surgical History: Appendectomy, Back Surgery, Hernia Repair, Joint Replacement, Tubal Ligation Additional Past Surgical History / Comment(s): Low back surgery, total R shoulder, R nephrectomy, several abdominal hernia surgeries, colonoscopy Past Anesthesia/Blood Transfusion Reactions: No Reported Reaction Additional Past Anesthesia/Blood Transfusion Reaction / Comment(s): Pt has received blood in past without reaction. Past Psychological History: No Psychological Hx Reported Smoking Status: Never smoker Past Alcohol Use History: None Reported Past Drug Use History: None Reported - Past Family History Mother Family Medical History: Cancer Father Family Medical History: Unable to Obtain Additional Family Medical History / Comment(s): Father when pt was 1 yrs old. General Exam Limitations: no limitations General appearance: alert, in distress Head exam: Present: atraumatic, normocephalic Eye exam: Present: normal appearance, PERRL Neck exam: Present: normal inspection. Absent: tenderness, meningismus Respiratory exam: Present: respiratory distress, wheezes, accessory muscle use, decreased breath sounds Cardiovascular Exam: Present: normal rhythm, tachycardia GI/Abdominal exam: Present: soft. Absent: distended, tenderness, guarding Extremities exam: Present: normal inspection, normal capillary refill. Absent: pedal edema, calf tenderness Neurological exam: Present: alert. Absent: motor sensory deficit Psychiatric exam: Present: anxious Skin exam: Present: warm, dry, intact. Absent: cyanosis, diaphoretic Course Vital Signs 08/05/21 08/05/21 08/05/21 11:20 11:35 12:00 Temperature 98.0 F Pulse Rate 114 H 116 H 112 H Respiratory 32 H 27 H 32 H Rate Blood Pressure 164/77 164/77 150/88 O2 Sat by Pulse 97 83 L 89 L Oximetry 08/05/21 08/05/21 08/05/21 12:20 12:30 12:34 Temperature Pulse Rate 112 H 112 H 111 H Respiratory 36 H 34 H 36 H Rate Blood Pressure 99/78 91/53 O2 Sat by Pulse 84 L 84 L Oximetry 08/05/21 08/05/21 08/05/21 12:50 13:11 13:36 Temperature Pulse Rate 110 H 98 94 Respiratory 30 H Rate Blood Pressure O2 Sat by Pulse 89 L Oximetry EKG Findings - EKG Comments: EKG Findings:: EKG: Sinus tachycardia, incomplete right bundle-branch block, rate of 121, VT interval 182, QRS duration 106, QTC [address] segment elevation. Medical Decision Making - Medical Decision Making 76-year-old female presenting with respiratory distress, hypoxia, confusion. She has labored respirations, wheezing throughout history of COPD. Chest x-ray shows possible early pneumonia versus atelectasis. She has a normal CBC, normal white count, stable hemoglobin, she does have arterial blood gas showing CO2 retention at 65. She had been placed on BiPAP for respiratory support. Given albuterol, Atrovent, steroids. She will be admitted to Dr. Ram who is aware of this patient. - Lab Data Result diagrams: 08/05/21 11:55 08/05/21 11:55 Lab Results 08/05/21 08/05/21 08/05/21 Range/Units 11:55 11:55 11:55 WBC 10.3 (3.8-10.6) k/uL RBC 4.04 (3.80-5.40) m/uL Hgb 11.2 L (11.4-16.0) gm/dL Hct 36.7 (34.0-46.0) % MCV 90.7 (80.0-100.0) fL MCH 27.6 (25.0-35.0) pg MCHC 30.4 L (31.0-37.0) g/dL RDW 14.6 (11.5-15.5) % Plt Count 252 (150-450) k/uL MPV 7.2 Neutrophils % 57 % Lymphocytes % 28 % Monocytes % 5 % Eosinophils % 7 % Basophils % 1 % Neutrophils # 5.9 (1.3-7.7) k/uL Lymphocytes # 2.9 (1.0-4.8) k/uL Monocytes # 0.5 (0-1.0) k/uL Eosinophils # 0.7 (0-0.7) k/uL Basophils # 0.1 (0-0.2) k/uL Hypochromasia Moderate PT 11.4 (9.0-12.0) sec INR 1.1 (<1.2) APTT 26.8 (22.0-30.0) sec Sample Site ABG pH (7.35-7.45) ABG pCO2 (35-45) mmHg ABG pO2 (83-108) mmHg ABG HCO3 (21-25) mmol/L ABG Total CO2 (19-24) mmol/L ABG O2 Saturation (94-97) % ABG Base Excess mmol/L [place] Test FiO2 % Sodium 135 L (137-145) mmol/L Potassium 5.0 (3.5-5.1) mmol/L Chloride 95 L (98-107) mmol/L Carbon Dioxide 32 H (22-30) mmol/L Anion Gap 8 mmol/L BUN 28 H (7-17) mg/dL Creatinine 0.89 (0.52-1.04) mg/dL Est GFR (CKD-EPI)AfAm 72 (>60 ml/min/1.73 sqM) Est GFR (CKD-EPI)NonAf 63 (>60 ml/min/1.73 sqM) Glucose 251 H (74-99) mg/dL Plasma Lactic Acid Frankie (0.7-2.0) mmol/L Calcium 9.0 (8.4-10.2) mg/dL Total Bilirubin 0.6 (0.2-1.3) mg/dL AST 24 (14-36) U/L ALT 13 (4-34) U/L Alkaline Phosphatase 60 (38-126) U/L Troponin I (0.000-0.034) ng/mL NT-Pro-B Natriuret Pep pg/mL Total Protein 7.2 (6.3-8.2) g/dL Albumin 3.8 (3.5-5.0) g/dL Coronavirus (PCR) (Not Detectd) 08/05/21 08/05/21 08/05/21 Range/Units 11:55 11:55 11:55 WBC (3.8-10.6) k/uL RBC (3.80-5.40) m/uL Hgb (11.4-16.0) gm/dL Hct (34.0-46.0) % MCV (80.0-100.0) fL MCH (25.0-35.0) pg MCHC (31.0-37.0) g/dL RDW (11.5-15.5) % Plt Count (150-450) k/uL MPV Neutrophils % % Lymphocytes % % Monocytes % % Eosinophils % % Basophils % % Neutrophils # (1.3-7.7) k/uL Lymphocytes # (1.0-4.8) k/uL Monocytes # (0-1.0) k/uL Eosinophils # (0-0.7) k/uL Basophils # (0-0.2) k/uL Hypochromasia PT (9.0-12.0) sec INR (<1.2) APTT (22.0-30.0) sec Sample Site ABG pH (7.35-7.45) ABG pCO2 (35-45) mmHg ABG pO2 (83-108) mmHg ABG HCO3 (21-25) mmol/L ABG Total CO2 (19-24) mmol/L ABG O2 Saturation (94-97) % ABG Base Excess mmol/L [place] Test FiO2 % Sodium (137-145) mmol/L Potassium (3.5-5.1) mmol/L Chloride (98-107) mmol/L Carbon Dioxide (22-30) mmol/L Anion Gap mmol/L BUN (7-17) mg/dL Creatinine (0.52-1.04) mg/dL Est GFR (CKD-EPI)AfAm (>60 ml/min/1.73 sqM) Est GFR (CKD-EPI)NonAf (>60 ml/min/1.73 sqM) Glucose (74-99) mg/dL Plasma Lactic Acid Frankie 1.6 (0.7-2.0) mmol/L Calcium (8.4-10.2) mg/dL Total Bilirubin (0.2-1.3) mg/dL AST (14-36) U/L ALT (4-34) U/L Alkaline Phosphatase (38-126) U/L Troponin I <0.012 (0.000-0.034) ng/mL NT-Pro-B Natriuret Pep 738 pg/mL Total Protein (6.3-8.2) g/dL Albumin (3.5-5.0) g/dL Coronavirus (PCR) (Not Detectd) 08/05/21 08/05/21 Range/Units 12:01 13:09 WBC (3.8-10.6) k/uL RBC (3.80-5.40) m/uL Hgb (11.4-16.0) gm/dL Hct (34.0-46.0) % MCV (80.0-100.0) fL MCH (25.0-35.0) pg MCHC (31.0-37.0) g/dL RDW (11.5-15.5) % Plt Count (150-450) k/uL MPV Neutrophils % % Lymphocytes % % Monocytes % % Eosinophils % % Basophils % % Neutrophils # (1.3-7.7) k/uL Lymphocytes # (1.0-4.8) k/uL Monocytes # (0-1.0) k/uL Eosinophils # (0-0.7) k/uL Basophils # (0-0.2) k/uL Hypochromasia PT (9.0-12.0) sec INR (<1.2) APTT (22.0-30.0) sec Sample Site LRAD ABG pH 7.31 L (7.35-7.45) ABG pCO2 65 H (35-45) mmHg ABG pO2 199 H (83-108) mmHg ABG HCO3 33 H (21-25) mmol/L ABG Total CO2 35 H (19-24) mmol/L ABG O2 Saturation 99.5 H (94-97) % ABG Base Excess 6.5 mmol/L [place] Test Yes FiO2 50 % Sodium (137-145) mmol/L Potassium (3.5-5.1) mmol/L Chloride (98-107) mmol/L Carbon Dioxide (22-30) mmol/L Anion Gap mmol/L BUN (7-17) mg/dL Creatinine (0.52-1.04) mg/dL Est GFR (CKD-EPI)AfAm (>60 ml/min/1.73 sqM) Est GFR (CKD-EPI)NonAf (>60 ml/min/1.73 sqM) Glucose (74-99) mg/dL Plasma Lactic Acid Frankie (0.7-2.0) mmol/L Calcium (8.4-10.2) mg/dL Total Bilirubin (0.2-1.3) mg/dL AST (14-36) U/L ALT (4-34) U/L Alkaline Phosphatase (38-126) U/L Troponin I (0.000-0.034) ng/mL NT-Pro-B Natriuret Pep pg/mL Total Protein (6.3-8.2) g/dL Albumin (3.5-5.0) g/dL Coronavirus (PCR) Not Detected (Not Detectd) Critical Care Time Critical Care Time: Yes Total Critical Care Time: 35 Disposition Clinical Impression: Acute exacerbation of chronic obstructive pulmonary disease, Hypoxia Disposition: ADMITTED IP TO THIS [facility] Condition: Serious Is patient prescribed a controlled substance at d/c from ED?: No Referrals: None,Stated [Primary Care Provider] - 1-2 days Decision to Admit Reason: Admit from EC Decision Date: 08/05/21 Decision Time: 13:42
[2021-08-05 12:11] LABS: Basophils # (A) 0.1 k/uL (0-0.2); Basophils % (A) 1 %; Eosinophils # (A) 0.7 k/uL (0-0.7); Eosinophils % (A) 7 %; HCT 36.7 % (34.0-46.0); HGB 11.2 gm/dL (11.4-16.0); Hypochromasia Moderate; Lymphocytes # (A) 2.9 k/uL (1.0-4.8); Lymphocytes % (A) 28 %; MCH 27.6 pg (25.0-35.0); MCHC 30.4 g/dL (31.0-37.0); MCV 90.7 fL (80.0-100.0); Mean Platelet Volume 7.2; Monocytes # (A) 0.5 k/uL (0-1.0); Monocytes % (A) 5 %; Neutrophils # (A) 5.9 k/uL (1.3-7.7); Neutrophils % (A) 57 %; Platelet Count 252 k/uL (150-450); RBC 4.04 m/uL (3.80-5.40); RDW 14.6 % (11.5-15.5); WBC 10.3 k/uL (3.8-10.6)
[2021-08-05 12:20] LABS: INR 1.1 (<1.2); Partial Thromboplastin Time 26.8 sec (22.0-30.0); Prothrombin Time 11.4 sec (9.0-12.0)
[2021-08-05 12:27] LABS: Albumin 3.8 g/dL (3.5-5.0); Total Bilirubin 0.6 mg/dL (0.2-1.3); Total Protein 7.2 g/dL (6.3-8.2)
[2021-08-05 13:17] LABS: ABG Base Excess 6.5 mmol/L; ABG HCO3 33 mmol/L (21-25); ABG Oxygen Saturation 99.5 % (94-97); ABG PCO2 65 mmHg (35-45); ABG PH 7.31 (7.35-7.45); ABG PO2 199 mmHg (83-108); ABG TCO2 35 mmol/L (19-24); Allen Test Performed? Yes
--- NOTE | 2021-08-05 13:28 | XR ---
EXAMINATION TYPE: XR chest 1V portable DATE OF EXAM: 08/05/2021 COMPARISON: Chest x-ray 06/25/2021 HISTORY: Shortness of breath TECHNIQUE: Single frontal view of the chest is obtained. FINDINGS: Patient is rotated. Patient is status post right hip arthroplasty. Left hemidiaphragm is el evated, gastric angle is noted however patchy basilar density is noted. There is no pleural effusion or pneumothorax seen. The cardiac silhouette size is possibly enlarged although the patient is rotat ed. Central vascularity is prominent, interstitium mildly increased The osseous structures are intac t. Surgical clips present in the upper abdomen. IMPRESSION: Basilar atelectasis, difficult to exclude pneumonia, correlate for possible early inters titial edema. Follow-up suggested.
[2021-08-05] MEDS ORDERED: IPRATROPIUM-ALBUTEROL 3 ML NEB INHALATION PRN (13:38)
[2021-08-05] MEDS ORDERED: AZITHROMYCIN 500 MG in SODIUM CHLORIDE 0.9% 250 ML IVPB STA (13:40)
[2021-08-05] MEDS ORDERED: NITROGLYCERIN SL TABS 0.4 MG TAB SUBLINGUAL PRN (13:55)
[2021-08-05] MEDS ORDERED: ACETAMINOPHEN TAB 325 MG TAB PO PRN (13:55)
[2021-08-05] MEDS ORDERED: MAG HYDROX/AL HYDROX/SIMETH 30 ML CUP PO PRN ×2 (13:55→14:03)
[2021-08-05] MEDS ORDERED: MAGNESIUM HYDROXIDE 2,400 MG/10 ML CUP PO ONE (14:00)
--- NOTE | 2021-08-05 14:11 | P.HPIM ---
History of Present Illness 76-year-old female with known history of COPD although denies smoking and as per the the previous pulmonology documentation patient has extensive history of smoking comes in with the altered mental status and found to be hypoxic was started on BiPAP with improvement in mental status patient is a being admitted for COPD exacerbation patient respiratory status improved from no movement to some wheezing. Patient's ABGs are consistent with hypercapnia patient is presently on BiPAP patient has pCO2 of 65 bicarbonate of 31 pH of 7.31. Because of the BiPAP patient is unable to provide much of the history to me REVIEW OF SYSTEMS: History is limited because of her BiPAP all other review of systems were negative PHYSICAL EXAMINATION: GENERAL: The patient is sleepy on BiPAP oriented 3, not in any acute distress. Well developed, well nourished. Obese HEENT: Pupils are round and equally reacting to light. EOMI. No scleral icterus. No conjunctival pallor. Normocephalic, atraumatic. No pharyngeal erythema. No thyromegaly. CARDIOVASCULAR: S1 and S2 present. No murmurs, rubs, or gallops. PULMONARY: Diminished air entry with expiratory wheezing ABDOMEN: Soft, nontender, nondistended, normoactive bowel sounds. No palpable organomegaly. MUSCULOSKELETAL: No joint swelling or deformity. EXTREMITIES: No cyanosis, clubbing, or pedal edema. NEUROLOGICAL: Gross neurological examination did not reveal any focal deficits. SKIN: No rashes. Assessment and plan -Acute on chronic hypercapnic respiratory failure secondary to COPD exacerbation patient will be continued on systemic steroids and inhalational treatments -Respiratory acidosis with some chronic metabolic compensation, chronic CO2 retention. -History of congestive failure chronic diastolic dysfunction without any acute exacerbation at this time -Type 2 diabetes mellitus uncontrolled elevated blood sugar expected to get worse because of her systemic steroids will cut down the steroids to 40 IV twice a day and 60 every 6 patient probably will only need 40 daily of steroids. Patient the long-acting insulin will be increased to 20 units, resume rest of the home regimen and also start her on sliding scale insulin. -Type 2 diabetes mellitus -Hyperlipidemia -Hypertension -Diabetic retinopathy -Diabetic peripheral neuropathy DVT prophylaxis: Patient is on anticoagulation with Xarelto, for her previous history of pulmonary embolism Past Medical History Past Medical History: Cancer, Heart Failure, COPD, Diabetes Mellitus, Eye Disorder, Hyperlipidemia, Hypertension, Pneumonia Additional Past Medical History / Comment(s): Kidney cancer post-nephrectomy on the right, IDDM type II, neuropathy bilateral hands/feet, bilateral diabetic retinopathy with legal blindness in the past but vision better since eye injections, recent diagnosis of DVT of the right lower extremity, bronchitis, home oxygen at 3L/NC ATC, chronic elevation of the left hemidiaphragm, obstructive sleep apnea currently not using device, thoracolumbar kyphoscoliosis, constipation History of Any Multi-Drug Resistant Organisms: None Reported Past Surgical History: Appendectomy, Back Surgery, Hernia Repair, Joint Replacement, Tubal Ligation Additional Past Surgical History / Comment(s): Low back surgery, total R shoulder, R nephrectomy, several abdominal hernia surgeries, colonoscopy Past Anesthesia/Blood Transfusion Reactions: No Reported Reaction Additional Past Anesthesia/Blood Transfusion Reaction / Comment(s): Pt has received blood in past without reaction. Past Psychological History: No Psychological Hx Reported Smoking Status: Never smoker Past Alcohol Use History: None Reported Past Drug Use History: None Reported - Past Family History Mother Family Medical History: Cancer Father Family Medical History: Unable to Obtain Additional Family Medical History / Comment(s): Father when pt was 1 yrs old. Medications and Allergies Home Medications Medication Instructions Recorded Confirmed Type Atorvastatin [Lipitor] 20 mg PO HS 03/28/21 08/05/21 History Furosemide [Lasix] 40 mg PO DAILY 03/28/21 08/05/21 History Acetaminophen Tab [Tylenol] 650 mg PO Q4H PRN 06/25/21 08/05/21 History Cetirizine HCl 10 mg PO HS 06/25/21 08/05/21 History Insulin Glargine,Hum.rec.anlog 10 units SQ DAILY@0800 06/25/21 08/05/21 History [Semglee Pen] Rivaroxaban [Xarelto] 20 mg PO DAILY 06/25/21 08/05/21 History metFORMIN HCL [Glucophage] 1,000 mg PO Q12H 06/25/21 08/05/21 History Aspirin 81 mg PO DAILY chew 06/26/21 08/05/21 Rx Nitroglycerin Sl Tabs [Nitrostat] 0.4 mg SUBLINGUAL Q5M PRN tab 06/26/21 08/05/21 Rx Glucerna Shake 240 ml PO TID@0600,1200,1700 08/05/21 08/05/21 History Insulin Lispro [humaLOG Kwikpen] See Protocol SQ AC-TID 08/05/21 08/05/21 History Mag Hydrox/Aluminum Hyd/Simeth 10 ml PO Q4H PRN 08/05/21 08/05/21 History [Mylanta Maximum Strength Liq] Magnesium Hydroxide [Milk of 2,400 mg PO ONCE@0830 08/05/21 08/05/21 History Magnesia] Melatonin 3 mg PO HS 08/05/21 08/05/21 History Na Phos,M-B/Na Phos,Di-Ba [Fleet 133 ml RECTAL ONCE@2100 08/05/21 08/05/21 History Adult] Psyllium Husk 100% [Metamucil 6 gm PO DAILY 08/05/21 08/05/21 History Packet] Semaglutide [Ozempic] 0.25 mg SQ TU 08/05/21 08/05/21 History bisacodyL [Dulcolax] 10 mg RECTAL ONCE@1430 08/05/21 08/05/21 History Allergies Allergy/AdvReac Type Severity Reaction Status Date / Time rofecoxib [From Vioxx] AdvReac Confusion Verified 08/05/21 12:48 Physical Exam Vitals: Vital Signs Temp Pulse Resp BP Pulse Ox 08/05/21 13:36 94 08/05/21 13:11 98 08/05/21 12:50 110 H 30 H 89 L 08/05/21 12:34 111 H 36 H 91/53 08/05/21 12:30 112 H 34 H 99/78 84 L 08/05/21 12:20 112 H 36 H 84 L 08/05/21 12:00 112 H 32 H 150/88 89 L 08/05/21 11:35 116 H 27 H 164/77 83 L 08/05/21 11:20 98.0 F 114 H 32 H 164/77 97 Intake and Output 08/04/21 08/05/21 08/05/21 22:59 06:59 14:59 Other: Weight 129.274 kg Results CBC & Chem 7: 08/05/21 11:55 08/05/21 11:55 Labs: Abnormal Lab Results - Last 24 Hours (Table) 08/05/21 08/05/21 08/05/21 Range/Units 11:55 11:55 13:09 Hgb 11.2 L (11.4-16.0) gm/dL MCHC 30.4 L (31.0-37.0) g/dL ABG pH 7.31 L (7.35-7.45) ABG pCO2 65 H (35-45) mmHg ABG pO2 199 H (83-108) mmHg ABG HCO3 33 H (21-25) mmol/L ABG Total CO2 35 H (19-24) mmol/L ABG O2 Saturation 99.5 H (94-97) % Sodium 135 L (137-145) mmol/L Chloride 95 L (98-107) mmol/L Carbon Dioxide 32 H (22-30) mmol/L BUN 28 H (7-17) mg/dL Glucose 251 H (74-99) mg/dL
[2021-08-05] MEDS ORDERED: bisacodyL 10 MG SUPP RECTAL SCH (14:30)
[2021-08-05] MEDS: cefTRIAXone IN SWFI 1,000 MG/10 ML SYRINGE IVP SCH ×2 (15:12→17:16)
[2021-08-05] MEDS: IPRATROPIUM-ALBUTEROL 3 ML NEB INHALATION SCH ×2 (15:15→20:01)
--- NOTE | 2021-08-05 16:25 | P.CNPUL ---
History of Present Illness Consult date: 08/05/21 Requesting physician: Hector Ram Reason for consult: dyspnea, hypoxemia Chief complaint: Altered mental status History of present illness: This is 76-year-old female patient who resides in extended care facility and was found to have altered mental status and hypoxemia. She is normally on oxygen at 3 L/m per nasal cannula. She also has a history of congestive heart failure, diabetes mellitus, diabetic nephropathy. 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 Chest x-ray reveals basilar atelectasis possible interstitial edema versus early pneum onia.he is seen today in consultation on the selective care unit. White count 10.3. Hemoglobin 11.2. Sodium 135. Potassium 5.0. Creatinine 0.89. Landrum virus not detected. Arterial blood gases on 50% FiO2 revealed a pO2 of 199, pCO2 65, pH 7.31. She's been initiated on DuoNeb inhalations. Currently on BiPAP for 12/6 and 30% FiO2 with O2 saturations in the 90s. She's been initiated and DuoNeb inhalations, IV Solu-Medrol. Anticoagulated with Xarelto. She is arousable. Poor historian. Review of Systems ROS unobtainable: due to mental status Past Medical History Past Medical History: Cancer, Heart Failure, COPD, Diabetes Mellitus, Eye Disorder, Hyperlipidemia, Hypertension, Pneumonia Additional Past Medical History / Comment(s): Kidney cancer post-nephrectomy on the right, IDDM type II, neuropathy bilateral hands/feet, bilateral diabetic retinopathy with legal blindness in the past but vision better since eye injections, recent diagnosis of DVT of the right lower extremity, bronchitis, home oxygen at 3L/NC ATC, chronic elevation of the left hemidiaphragm, obstructive sleep apnea currently not using device, thoracolumbar kyphoscoliosis, constipation History of Any Multi-Drug Resistant Organisms: None Reported Past Surgical History: Appendectomy, Back Surgery, Hernia Repair, Joint Replacement, Tubal Ligation Additional Past Surgical History / Comment(s): Low back surgery, total R shoulder, R nephrectomy, several abdominal hernia surgeries, colonoscopy Past Anesthesia/Blood Transfusion Reactions: No Reported Reaction Additional Past Anesthesia/Blood Transfusion Reaction / Comment(s): Pt has received blood in past without reaction. Past Psychological History: No Psychological Hx Reported Smoking Status: Never smoker Past Alcohol Use History: None Reported Past Drug Use History: None Reported - Past Family History Mother Family Medical History: Cancer Father Family Medical History: Unable to Obtain Additional Family Medical History / Comment(s): Father when pt was 1 yrs old. Medications and Allergies Home Medications Medication Instructions Recorded Confirmed Type Atorvastatin [Lipitor] 20 mg PO HS 03/28/21 08/05/21 History Furosemide [Lasix] 40 mg PO DAILY 03/28/21 08/05/21 History Acetaminophen Tab [Tylenol] 650 mg PO Q4H PRN 06/25/21 08/05/21 History Cetirizine HCl 10 mg PO HS 06/25/21 08/05/21 History Insulin Glargine,Hum.rec.anlog 10 units SQ DAILY@0800 06/25/21 08/05/21 History [Semglee Pen] Rivaroxaban [Xarelto] 20 mg PO DAILY 06/25/21 08/05/21 History metFORMIN HCL [Glucophage] 1,000 mg PO Q12H 06/25/21 08/05/21 History Aspirin 81 mg PO DAILY chew 06/26/21 08/05/21 Rx Nitroglycerin Sl Tabs [Nitrostat] 0.4 mg SUBLINGUAL Q5M PRN tab 06/26/21 08/05/21 Rx Glucerna Shake 240 ml PO TID@0600,1200,1700 08/05/21 08/05/21 History Insulin Lispro [humaLOG Kwikpen] See Protocol SQ AC-TID 08/05/21 08/05/21 History Mag Hydrox/Aluminum Hyd/Simeth 10 ml PO Q4H PRN 08/05/21 08/05/21 History [Mylanta Maximum Strength Liq] Magnesium Hydroxide [Milk of 2,400 mg PO ONCE@0830 08/05/21 08/05/21 History Magnesia] Melatonin 3 mg PO HS 08/05/21 08/05/21 History Na Phos,M-B/Na Phos,Di-Ba [Fleet 133 ml RECTAL ONCE@2100 08/05/21 08/05/21 History Adult] Psyllium Husk 100% [Metamucil 6 gm PO DAILY 08/05/21 08/05/21 History Packet] Semaglutide [Ozempic] 0.25 mg SQ TU 08/05/21 08/05/21 History bisacodyL [Dulcolax] 10 mg RECTAL ONCE@1430 08/05/21 08/05/21 History Allergies Allergy/AdvReac Type Severity Reaction Status Date / Time rofecoxib [From Vioxx] AdvReac Confusion Verified 08/05/21 12:48 Physical Exam Vitals: Vital Signs Temp Pulse Pulse Resp BP BP Pulse Ox 08/05/21 15:59 102 H 08/05/21 15:54 102 H 28 H 135/86 97 08/05/21 15:24 98 14 08/05/21 15:15 101 H 17 08/05/21 15:00 98.7 F 98 25 H 95/33 95 08/05/21 14:00 93 26 H 117/88 96 08/05/21 13:36 94 08/05/21 13:11 98 08/05/21 13:00 98 27 H 91/53 95 08/05/21 12:50 110 H 30 H 89 L 08/05/21 12:34 111 H 36 H 91/53 08/05/21 12:30 112 H 34 H 99/78 84 L 08/05/21 12:20 112 H 36 H 84 L 08/05/21 12:00 112 H 32 H 150/88 89 L 08/05/21 11:35 116 H 27 H 164/77 83 L 08/05/21 11:20 98.0 F 114 H 32 H 164/77 97 Intake and Output 08/05/21 08/05/21 08/05/21 06:59 14:59 22:59 Other: Weight 129.274 kg GENERAL EXAM: 76-year-old female patient, on BiPAP, 12/6 and 30% FiO2, arousable, poor historian, comfortable in no apparent distress. HEAD: Normocephalic. EYES: Normal reaction of pupils, equal size. NOSE: Clear with pink turbinates. THROAT: No erythema or exudates. NECK: No masses, no JVD. CHEST: No chest wall deformity. LUNGS: Equal air entry with crackles in the bilateral bases, diminished. CVS: S1 and S2 normal with no audible murmur, regular rhythm. ABDOMEN: No hepatosplenomegaly, normal bowel sounds, no guarding or rigidity. SPINE: No scoliosis or deformity SKIN: No rashes CENTRAL NERVOUS SYSTEM: No focal deficits, tone is normal in all 4 extremities. EXTREMITIES: There is trace peripheral edema. No clubbing, no cyanosis. Peripheral pulses are intact. Results - Laboratory Findings CBC and BMP: 08/05/21 11:55 08/05/21 11:55 ABG ABG pH 7.31 (7.35-7.45) L 08/05/21 13:09 ABG pCO2 65 mmHg (35-45) H 08/05/21 13:09 ABG pO2 199 mmHg (83-108) H 08/05/21 13:09 ABG O2 Saturation 99.5 % (94-97) H 08/05/21 13:09 PT/INR, D-dimer PT 11.4 sec (9.0-12.0) 08/05/21 11:55 INR 1.1 (<1.2) 08/05/21 11:55 Abnormal lab findings: Abnormal Labs 08/05/21 08/05/21 08/05/21 11:55 11:55 13:09 Hgb 11.2 L MCHC 30.4 L ABG pH 7.31 L ABG pCO2 65 H ABG pO2 199 H ABG HCO3 33 H ABG Total CO2 35 H ABG O2 Saturation 99.5 H Sodium 135 L Chloride 95 L Carbon Dioxide 32 H BUN 28 H Glucose 251 H - Diagnostic Findings Chest x-ray: image reviewed Assessment and Plan Assessment: 1 Acute on chronic hypoxemic respiratory failure, currently on BiPAP 12/6 and 30% FiO2 2 Acute on chronic hypercapnic respiratory failure 3 Chronic obstructive pulmonary disease 4 History of chronic tobacco dependence 5 Chronic elevation left hemidiaphragm 6 History of obstructive sleep apnea noncompliant with CPAP 7 History of congestive heart failure 8 Diabetes mellitus 9 Diabetic neuropathy 10 Hypertension 11 Hyperlipidemia 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 Gómez Chest x-ray and labs reviewed Continue bronchodilators Titrate the FiO2 as tolerated We will continue to follow and make further recommendations based on her clinic al status I, the cosigning physician, performed a history & physical examination of the patient. Lungs sounds crackles in the bilateral bases, diminished. Maintaining good O2 saturations in the 90s on BiPAP 12/6 and 30%. I discussed the assessment and plan of care with my nurse practitioner, Christine Spencer. I attest to the above consultation as dictated by her. Time with Patient: Greater than 30
[2021-08-05 16:32] LABS: Glucose,Whole Blood 269 mg/dL (75-99)
[2021-08-05] MEDS ORDERED: NON FORMULARY DRUG (Glucerna Shake 1 CAN Ml) PO SCH (17:00)
[2021-08-05] MEDS: metFORMIN 500 MG TAB PO SCH (17:16)
[2021-08-05] MEDS: methylPREDNISolone SOD SUCCI 40 MG/ML 1 ML VIAL IV SCH (17:25)
[2021-08-05] MEDS: INSULIN ASPART (NovoLOG) 100 UNIT/ML VIAL SQ SCH ×2 (17:25→20:50)
[2021-08-05] MEDS ORDERED: methylPREDNISolone SOD SUCCI 125 MG/2 ML VIAL IV SCH (18:00)
[2021-08-05] MEDS: SYMBICORT 160-4.5 MCG INHALER INHALATION SCH (20:01)
[2021-08-05 20:23] LABS: Glucose,Whole Blood 226 mg/dL (75-99)
[2021-08-05] MEDS ORDERED: LORATADINE 10 MG TAB PO SCH (21:00)
[2021-08-05] MEDS ORDERED: NA PHOS,M-B/NA PHOS,DI-BA 133 ML ENEMA RECTAL SCH (21:00)
[2021-08-05] MEDS ORDERED: ATORVASTATIN 20 MG TAB PO SCH (21:00)
[2021-08-05] MEDS ORDERED: FAMOTIDINE 20 MG TAB PO SCH (21:00)
[2021-08-05] MEDS ORDERED: methylPREDNISolone SOD SUCCI 40 MG/ML 1 ML VIAL IV SCH (21:00)
[2021-08-05] MEDS ORDERED: MELATONIN 3 MG TABLET PO SCH (21:00)
[2021-08-05 23:25] VITALS: RESP 18
[2021-08-06] MEDS: methylPREDNISolone SOD SUCCI 40 MG/ML 1 ML VIAL IV SCH ×3 (01:24→11:37)
[2021-08-06] MEDS: metFORMIN 500 MG TAB PO SCH ×2 (01:24→07:37)
[2021-08-06 06:23] LABS: Glucose,Whole Blood 300 mg/dL (75-99)
[2021-08-06] MEDS: INSULIN ASPART (NovoLOG) 100 UNIT/ML VIAL SQ SCH ×2 (06:32→11:38)
[2021-08-06 07:42] LABS: HCT 32.7 % (34.0-46.0); HGB 10.2 gm/dL (11.4-16.0); Hypochromasia Slight; MCH 27.6 pg (25.0-35.0); MCV 88.9 fL (80.0-100.0); Mean Platelet Volume 7.4; Platelet Count 261 k/uL (150-450); RBC 3.68 m/uL (3.80-5.40); WBC 7.3 k/uL (3.8-10.6)
[2021-08-06 07:50] LABS: Calcium 9.2 mg/dL (8.4-10.2); Potassium 5.4 mmol/L (3.5-5.1)
[2021-08-06] MEDS ORDERED: INSULIN DETEMIR (LEVEMIR) 100 UNIT/ML SYR SQ SCH (08:00)
[2021-08-06] MEDS: SYMBICORT 160-4.5 MCG INHALER INHALATION SCH (08:18)
[2021-08-06] MEDS: IPRATROPIUM-ALBUTEROL 3 ML NEB INHALATION SCH ×2 (08:18→11:12)
[2021-08-06] MEDS ORDERED: PSYLLIUM HUSK 100% 6 GM PACKET PO SCH (09:00)
[2021-08-06] MEDS ORDERED: ASPIRIN 81 MG PO SCH (09:00)
[2021-08-06] MEDS ORDERED: RIVAROXABAN 20 MG TAB PO SCH (09:00)
[2021-08-06] MEDS ORDERED: FUROSEMIDE 40 MG TAB PO SCH (09:00)
[2021-08-06] MEDS ORDERED: DEXTROSE 50% SYRINGE 50 ML IVP ONE (10:57)
[2021-08-06] MEDS ORDERED: SODIUM BICARB 8.4% 50 ML SYR (1 MEQ/ML) IV ONE (10:57)
[2021-08-06 11:13] VITALS: BP 136/64; PULSE 79; TEMP 98
[2021-08-06] MEDS ORDERED: INSULIN REGULAR 100 UNIT/ML VIAL (IV) IV ONE (11:15)
[2021-08-06 11:16] LABS: Glucose,Whole Blood 258 mg/dL (75-99)
--- NOTE | 2021-08-06 12:03 | P.DS ---
Providers Date of admission: 08/05/21 13:39 Attending physician: Hector Ram Consults: 08/05/21 13:42 Consult Physician Stat Consulting Provider: Giuseppe Gómez Reason/Comments: COPD, resp failure Do you want consulting provider notified?: Yes Primary care physician: Stated None Hospital Course: -Acute on chronic hypercapnic respiratory failure secondary to COPD exacerbation, on home oxygen, steroid taper added Symbicort -Respiratory acidosis with some chronic metabolic compensation, chronic CO2 retention. CO2 28 normalized -History of congestive failure chronic diastolic dysfunction without any acute exacerbation at this time, current EF 55-60% -Type 2 diabetes mellitus uncontrolled, with hyperglycemia exacerbated by steroids -Hyperlipidemia -Hypertension -Diabetic retinopathy -Diabetic peripheral neuropathy DVT prophylaxis: Patient is on anticoagulation with Xarelto, for her previous history of pulmonary embolism Discharge disposition Patient will be discharged back to [facility] where she states she is currently there for rehab. Patient with 3 L nasal cannula, satting 98%. Patient does wear 3 L nasal cannula at [facility]. Patient is afebrile, heart rate 79. Rhythm, blood pressure 136/74. Patient will be on a steroid taper, added Symbicort and Ventolin inhaler for SOB and wheezing as needed. Hospital course This is a 76-year-old female who presented to the for a history of CHF and COPD who had an acute episode of confusion and hypoxia. Patient is currently at [facility], who reported that she had been confused and was not hypoxic. Patient does wear 3 L nasal cannula at all times. Per patient she did have a moment where she was having some shortness of breath and the staff did not arrive promptly. Additional medical history includes COPD diabetes mellitus type 2 with hyperglycemia chronic congestive diastolic heart failure, hyperlipidemia, hypertension, history of pneumonia, history of nephrectomy to the right due to kidney cancer, diabetic retinopathy with legal blindness, has had injections in vision has improved. In addition patient does have a history of DVT PE for which she is on Xarelto. Patient was evaluated by pulmonary services this admission with recommending management with steroids and breathing treatments, patient was cleared for discharge to return to [facility]. It appears her mentation is back to baseline, her CO2 has normalized today to 28, it was found to be 32 on admission. Patient's respiratory alkalosis has normalized, chloride 99, CO2 28. Patient's sodium is stable at 135, lactic acid negative at 1.6, troponin negative, BNP within normal limits at 738. COVID Was nondetectable. Patient's white count was normal at 7.3, hemoglobin stable at 10.2. Potassium today was 5.4 which is an increase from 5, patient was treated with a dose of IV insulin, sodium bicarbonate, dextrose. Anticipate returning to normal, no further treatment needed patient will have repeat labs for a CBC and BMP in 2 days at [facility]. Patient's blood sugars are in the 200s to 300s. Due to a steroid taper, patient Levemir was increased to 20 units daily. Please follow- up with all necessary providers, pulmonary services. Please see medication with sensation for list of current medications. Thank you for allowing us to participate in the care of this patient. Patient Condition at Discharge: Fair Plan - Discharge Summary Discharge Rx Participant: No New Discharge Prescriptions: New methylPREDNISolone Dose Pack [Medrol Dose Pack] 4 mg PO DIRECTED #1 packet Budesonide-Formot 160-4.5 Mcg [Symbicort 160-4.5 Mcg Inhaler] 2 puff INHALATION RT-BID #1 dispenser Albuterol Inhaler [Ventolin Hfa Inhaler] 1 puff INHALATION RT-QID PRN #8 gm PRN Reason: Bronchospasm Continue Acetaminophen Tab [Tylenol] 650 mg PO Q4H PRN PRN Reason: Mild Pain metFORMIN HCL [Glucophage] 1,000 mg PO Q12H Rivaroxaban [Xarelto] 20 mg PO DAILY Nitroglycerin Sl Tabs [Nitrostat] 0.4 mg SUBLINGUAL Q5M PRN tab PRN Reason: Chest Pain bisacodyL [Dulcolax] 10 mg RECTAL ONCE@1430 Glucerna Shake 240 ml PO TID@0600,1200,1700 Insulin Lispro [humaLOG Kwikpen] See Protocol SQ AC-TID Mag Hydrox/Aluminum Hyd/Simeth [Mylanta Maximum Strength Liq] 10 ml PO Q4H PRN PRN Reason: gerd Magnesium Hydroxide [Milk of Magnesia] 2,400 mg PO ONCE@0830 Melatonin 3 mg PO HS Furosemide [Lasix] 40 mg PO DAILY Atorvastatin [Lipitor] 20 mg PO HS Cetirizine HCl 10 mg PO HS Aspirin 81 mg PO DAILY chew Na Phos,M-B/Na Phos,Di-Ba [Fleet Adult] 133 ml RECTAL ONCE@2100 Psyllium Husk 100% [Metamucil Packet] 6 gm PO DAILY Semaglutide [Ozempic] 0.25 mg SQ TU Changed Insulin Glargine,Hum.rec.anlog [Semglee Pen] 20 units SQ DAILY@0800 #0 Discharge Medication List Atorvastatin [Lipitor] 20 mg PO HS 03/28/21 [History] Furosemide [Lasix] 40 mg PO DAILY 03/28/21 [History] Acetaminophen Tab [Tylenol] 650 mg PO Q4H PRN 06/25/21 [History] Cetirizine HCl 10 mg PO HS 06/25/21 [History] Rivaroxaban [Xarelto] 20 mg PO DAILY 06/25/21 [History] metFORMIN HCL [Glucophage] 1,000 mg PO Q12H 06/25/21 [History] Aspirin 81 mg PO DAILY chew 06/26/21 [Rx] Nitroglycerin Sl Tabs [Nitrostat] 0.4 mg SUBLINGUAL Q5M PRN tab 06/26/21 [Rx] Glucerna Shake 240 ml PO TID@0600,1200,1700 08/05/21 [History] Insulin Lispro [humaLOG Kwikpen] See Protocol SQ AC-TID 08/05/21 [History] Mag Hydrox/Aluminum Hyd/Simeth [Mylanta Maximum Strength Liq] 10 ml PO Q4H PRN 08/05/21 [History] Magnesium Hydroxide [Milk of Magnesia] 2,400 mg PO ONCE@0830 08/05/21 [History] Melatonin 3 mg PO HS 08/05/21 [History] Na Phos,M-B/Na Phos,Di-Ba [Fleet Adult] 133 ml RECTAL ONCE@2100 08/05/21 [History] Psyllium Husk 100% [Metamucil Packet] 6 gm PO DAILY 08/05/21 [History] Semaglutide [Ozempic] 0.25 mg SQ TU 08/05/21 [History] bisacodyL [Dulcolax] 10 mg RECTAL ONCE@1430 08/05/21 [History] Albuterol Inhaler [Ventolin Hfa Inhaler] 1 puff INHALATION RT-QID PRN #8 gm 08/06/21 [Rx] Budesonide-Formot 160-4.5 Mcg [Symbicort 160-4.5 Mcg Inhaler] 2 puff INHALATION RT-BID #1 dispenser 08/06/21 [Rx] Insulin Glargine,Hum.rec.anlog [Semglee Pen] 20 units SQ DAILY@0800 #0 08/06/21 [Rx] methylPREDNISolone Dose Pack [Medrol Dose Pack] 4 mg PO DIRECTED #1 packet 08/06/21 [Rx] Follow up Appointment(s)/Referral(s): None,Stated [Primary Care Provider] - 1-2 days Giuseppe Gómez DO [Doctor of Osteopathic Medicine] - 1 Week Ambulatory/Diagnostic Orders: Basic Metabolic Panel [LAB.AMB] Time Frame: 2 Days, Location: None Selected Complete Blood Count w/diff [LAB.AMB] Time Frame: 2 Days, Location: None Selected Activity/Diet/Wound Care/Special Instructions: [facility] Discharge Disposition: TRANSFER TO SNF/ECF
[2021-08-06] MEDS ORDERED: INSULIN ASPART (NovoLOG) 100 UNIT/ML VIAL SQ SCH (12:30)
--- NOTE | 2021-08-06 13:20 | P.PN ---
Subjective Progress Note Date: 08/06/21 Principal diagnosis: Acute on chronic hypoxemic/hypercapnic respiratory failure This is 76-year-old female patient who resides in extended care facility and was found to have altered mental status and hypoxemia. She is normally on oxygen at 3 L/m per nasal cannula. She also has a history of congestive heart failure, diabetes mellitus, diabetic nephropathy. Cancer status post right nephrectomy legally blind, DVT of the right lower extremity, chronic elevation of left hemid iaphragm, obstructive sleep apnea not on CPAP, kyphoscoliosis. Chest x-ray reveals basilar atelectasis possible interstitial edema versus early pneumonia.he is seen today in consultation on the selective care unit. White count 10.3. Hemoglobin 11.2. Sodium 135. Potassium 5.0. Creatinine 0.89. Landrum virus not detected. Arterial blood gases on 50% FiO2 revealed a pO2 of 199, pCO2 65, pH 7.31. She's been initiated on DuoNeb inhalations. Currently on BiPAP for 12/6 and 30% FiO2 with O2 saturations in the 90s. She's been initiated and DuoNeb inhalations, IV Solu-Medrol. Anticoagulated with Xarelto. She is arousable. Poor historian. The patient is seen today 08/06/2021 in follow-up. She is much more awake and alert today. No worsening shortness of breath, cough or congestion. Off BiPAP and maintaining good O2 saturations in the high 90s on 3 L/m per nasal cannula. Afebrile. Hemodynamically stable. White count 7.3. Hemoglobin 10.2. Sodium 135. Potassium 5.4. Creatinine 0.78. Do not DuoNeb inhalations, Symbicort, IV Solu-Medrol. Anticoagulated with Xarelto. Objective - Vital Signs Vital signs: Vital Signs Temp 98 F 08/06/21 11:12 Pulse 79 08/06/21 11:12 Resp 18 08/06/21 12:34 BP 136/64 08/06/21 11:12 Pulse Ox 98 08/06/21 11:12 Intake & Output 08/05/21 08/06/21 08/06/21 18:59 06:59 18:59 Intake Total 0 240 Balance 0 240 Weight 129.274 kg 120 kg Intake: Oral 0 240 Other: Voiding Method Bedside Commode Diaper # Voids 1 # Bowel Movements 1 - Exam GENERAL EXAM: 76-year-old female patient, on 3 L/m per nasal cannula, comfortable in no apparent distress. HEAD: Normocephalic. EYES: Normal reaction of pupils, equal size. NOSE: Clear with pink turbinates. THROAT: No erythema or exudates. NECK: No masses, no JVD. CHEST: No chest wall deformity. LUNGS: Equal air entry with crackles in the bilateral bases, diminished. CVS: S1 and S2 normal with no audible murmur, regular rhythm. ABDOMEN: No hepatosplenomegaly, normal bowel sounds, no guarding or rigidity. SPINE: No scoliosis or deformity SKIN: No rashes CENTRAL NERVOUS SYSTEM: No focal deficits, tone is normal in all 4 extremities. EXTREMITIES: There is trace peripheral edema. No clubbing, no cyanosis. Peripheral pulses are intact. - Labs CBC & Chem 7: 08/06/21 06:45 08/06/21 06:45 Labs: Abnormal Lab Results - Last 24 Hours (Table) 08/05/21 08/05/21 08/05/21 Range/Units 13:09 16:31 20:21 RBC (3.80-5.40) m/uL Hgb (11.4-16.0) gm/dL Hct (34.0-46.0) % ABG pH 7.31 L (7.35-7.45) ABG pCO2 65 H (35-45) mmHg ABG pO2 199 H (83-108) mmHg ABG HCO3 33 H (21-25) mmol/L ABG Total CO2 35 H (19-24) mmol/L ABG O2 Saturation 99.5 H (94-97) % Sodium (137-145) mmol/L Potassium (3.5-5.1) mmol/L BUN (7-17) mg/dL Glucose (74-99) mg/dL POC Glucose (mg/dL) 269 H 226 H (75-99) mg/dL 08/06/21 08/06/21 08/06/21 Range/Units 06:21 06:45 06:45 RBC 3.68 L (3.80-5.40) m/uL Hgb 10.2 L (11.4-16.0) gm/dL Hct 32.7 L (34.0-46.0) % ABG pH (7.35-7.45) ABG pCO2 (35-45) mmHg ABG pO2 (83-108) mmHg ABG HCO3 (21-25) mmol/L ABG Total CO2 (19-24) mmol/L ABG O2 Saturation (94-97) % Sodium 135 L (137-145) mmol/L Potassium 5.4 H (3.5-5.1) mmol/L BUN 30 H (7-17) mg/dL Glucose 325 H (74-99) mg/dL POC Glucose (mg/dL) 300 H (75-99) mg/dL 08/06/21 Range/Units 11:14 RBC (3.80-5.40) m/uL Hgb (11.4-16.0) gm/dL Hct (34.0-46.0) % ABG pH (7.35-7.45) ABG pCO2 (35-45) mmHg ABG pO2 (83-108) mmHg ABG HCO3 (21-25) mmol/L ABG Total CO2 (19-24) mmol/L ABG O2 Saturation (94-97) % Sodium (137-145) mmol/L Potassium (3.5-5.1) mmol/L BUN (7-17) mg/dL Glucose (74-99) mg/dL POC Glucose (mg/dL) 258 H (75-99) mg/dL Assessment and Plan Assessment: 1 Acute on chronic hypoxemic respiratory failure, currently on BiPAP 12/6 and 30% FiO2 2 Acute on chronic hypercapnic respiratory failure 3 Chronic obstructive pulmonary disease 4 History of chronic tobacco dependence 5 Chronic elevation left hemidiaphragm 6 History of obstructive sleep apnea noncompliant with CPAP 7 History of congestive heart failure 8 Diabetes mellitus 9 Diabetic neuropathy 10 Hypertension 11 Hyperlipidemia 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 Dalia Sandhu for discharge from pulmonary standpoint Continue her home pulmonary medications Follow-up in the office in 1-2 weeks' time I, the cosigning physician, performed a history & physical examination of the patient. Lungs sounds crackles in the bilateral bases, diminished. Maintaining good O2 saturations in the 90s on 3 L/m per nasal cannula. I discussed the assessment and plan of care with my nurse practitioner, Christine Spencer. I attest to the above note as dictated by her.
[2021-08-10] MEDS ORDERED: NON FORMULARY DRUG (Semaglutide [Ozempic] 0.25 MG/0.2 ML Each) SQ SCH (09:00)
== END 2021-08-06 14:35 | disposition home or self-care (01) ==
LOC: EC 11:15 → INTOOBSV 13:39 → 3SCARD 13:39 → UNDODISIN 08-06 14:35
PROVIDERS: ADMIT Internal Medicine; ATTEND Internal Medicine
PROC: 5A09357 Assistance with Respiratory Ventilation, Less than 24 Consecutive Hours, Continuous Positive Airway Pressure (ICD-10-PCS; principal; 2021-08-05)
DX: J44.1 Chronic obstructive pulmonary disease with (acute) exacerbation (principal); J96.22 Acute and chronic respiratory failure with hypercapnia; E87.4 Mixed disorder of acid-base balance; E11.65 Type 2 diabetes mellitus with hyperglycemia; T38.0X5A Adverse effect of glucocorticoids and synthetic analogues, initial encounter; J96.21 Acute and chronic respiratory failure with hypoxia; I11.0 Hypertensive heart disease with heart failure; I50.32 Chronic diastolic (congestive) heart failure; E11.42 Type 2 diabetes mellitus with diabetic polyneuropathy; E11.319 Type 2 diabetes mellitus with unspecified diabetic retinopathy without macular edema; H54.8 Legal blindness, as defined in USA; G47.33 Obstructive sleep apnea (adult) (pediatric); J98.6 Disorders of diaphragm; K59.00 Constipation, unspecified; M41.9 Scoliosis, unspecified; J98.11 Atelectasis; E78.5 Hyperlipidemia, unspecified; Z99.81 Dependence on supplemental oxygen; I45.10 Unspecified right bundle-branch block; Z20.822 Contact with and (suspected) exposure to COVID-19; Z79.01 Long term (current) use of anticoagulants; Z79.82 Long term (current) use of aspirin; Z79.4 Long term (current) use of insulin; Z79.899 Other long term (current) drug therapy; Z88.6 Allergy status to analgesic agent; Z87.01 Personal history of pneumonia (recurrent); Z87.891 Personal history of nicotine dependence; Z90.5 Acquired absence of kidney; Z96.611 Presence of right artificial shoulder joint; Z85.528 Personal history of other malignant neoplasm of kidney; Z98.51 Tubal ligation status; Z98.890 Other specified postprocedural states; Z86.718 Personal history of other venous thrombosis and embolism; Z86.711 Personal history of pulmonary embolism; Z80.9 Family history of malignant neoplasm, unspecified
CPT/HCPCS: 96376 ×2; 96366; 96375 ×2; 96365; 99291; 36415; 94660; 94640 ×2; 36600; 93005; 97166; 83880; 80053; 80048; 82805; 83605; 84484; 85025; 85027; 85610; 85730; 87040; 84145; 87635; 71045; G0378 ×2; J2920 ×2; J2930; J0456; J0696; 96374

== ENCOUNTER 2021-11-03 13:11 | Emergency (ER) | payer MEDICARE, OTHER ==
[2021-11-03] MEDS ORDERED: ACETAMINOPHEN TAB 325 MG TAB PO STA (13:18)
[2021-11-03 13:24] VITALS: TEMP 98.6
--- NOTE | 2021-11-03 14:04 | ED ---
General Adult HPI <Giuseppe Hernandez - Last Filed: 11/03/21 15:54> - General Source: patient, EMS, RN notes reviewed, old records reviewed Mode of arrival: ambulatory Limitations: no limitations <Abdiel South - Last Filed: 11/04/21 07:14> - General Chief complaint: Fall Stated complaint: Fall Time Seen by Provider: 11/03/21 13:16 - History of Present Illness Initial comments: Patient is a 76-year-old female with past medical history remarkable for cancer, heart failure, COPD, diabetes, hypertension, nephrectomy on the right, is currently taking xeralto presents emergency Department following a fall. She was trying to transfer from wheelchair to bed when she slipped and fell onto the ground landing on her bottom. She believes she may have bumped her head and has a little bit of mild tenderness palpation over the posterior skull. His no obvious lacerations or bleeding. Patient was complaining of right knee pain, as well as thoracic and lumbar spine pain. She has some mild right hip pain as well. No other acute complaints at this time. She has lost consciousness. Denies any weakness or numbness that is acute. She is chronically on oxygen. Presents over concern for injury following fall from less than standing height on blood thinner. (Abdiel South) - Related Data Home Medications Medication Instructions Recorded Confirmed Atorvastatin [Lipitor] 20 mg PO HS 03/28/21 11/03/21 Furosemide [Lasix] 40 mg PO DAILY 03/28/21 11/03/21 Acetaminophen Tab [Tylenol] 650 mg PO Q4H PRN 06/25/21 11/03/21 Cetirizine HCl 10 mg PO HS 06/25/21 11/03/21 Rivaroxaban [Xarelto] 20 mg PO DAILY 06/25/21 11/03/21 metFORMIN HCL [Glucophage] 1,000 mg PO Q12H 06/25/21 11/03/21 Insulin Lispro [humaLOG Kwikpen] See Protocol SQ AC-TID 08/05/21 11/03/21 Mag Hydrox/Aluminum Hyd/Simeth 10 ml PO Q4H PRN 08/05/21 11/03/21 [Mylanta Maximum Strength Liq] Melatonin 3 mg PO HS 08/05/21 11/03/21 Psyllium Husk 100% [Metamucil 6 gm PO DAILY 08/05/21 11/03/21 Packet] Semaglutide [Ozempic] 0.25 mg SQ TU 08/05/21 11/03/21 Insulin Lispro [humaLOG Kwikpen] See Protocol SQ AC-TID 11/03/21 11/03/21 Nitroglycerin Sl Tabs [Nitrostat] 0.4 mg SL Q5M PRN 11/03/21 11/03/21 Sertraline [Zoloft] 25 mg PO HS 11/03/21 11/03/21 Previous Rx's Medication Instructions Recorded Aspirin 81 mg PO DAILY chew 06/26/21 Albuterol Inhaler [Ventolin Hfa 1 puff INHALATION RT-QID PRN #8 gm 08/06/21 Inhaler] Budesonide-Formot 160-4.5 Mcg 2 puff INHALATION RT-BID #1 08/06/21 [Symbicort 160-4.5 Mcg Inhaler] dispenser Allergies Allergy/AdvReac Type Severity Reaction Status Date / Time rofecoxib [From Vioxx] AdvReac Confusion Verified 11/03/21 13:19 Review of Systems ROS Other: All systems not noted in ROS Statement are negative. <Giuseppe Hernandez - Last Filed: 11/03/21 15:54> ROS Other: All systems not noted in ROS Statement are negative. <Abdiel South - Last Filed: 11/04/21 07:14> ROS Statement: Those systems with pertinent positive or pertinent negative responses have been documented in the HPI. Review of Systems: CONST: Denies fever EYES: Denies blurry vision ENT: Denies nasal congestion C/V: Denies Chest pain RESP: Denies shortness of breath GI: Denies abdominal pain : Denies dysuria SKIN: Denies rash. MSK: Endorses lower back pain, right knee pain, right hip pain NEURO: Denies headache (Abdiel South) Past Medical History Past Medical History: Cancer, Heart Failure, COPD, Diabetes Mellitus, Eye Disorder, Hyperlipidemia, Hypertension, Pneumonia Additional Past Medical History / Comment(s): Kidney cancer post-nephrectomy on the right, IDDM type II, neuropathy bilateral hands/feet, bilateral diabetic retinopathy with legal blindness in the past but vision better since eye inj ections, recent diagnosis of DVT of the right lower extremity, bronchitis, home oxygen at 3L/NC ATC, chronic elevation of the left hemidiaphragm, obstructive sleep apnea currently not using device, thoracolumbar kyphoscoliosis, constipation History of Any Multi-Drug Resistant Organisms: None Reported Past Surgical History: Appendectomy, Back Surgery, Hernia Repair, Joint Replacement, Tubal Ligation Additional Past Surgical History / Comment(s): Low back surgery, total R shoulder, R nephrectomy, several abdominal hernia surgeries, colonoscopy Past Anesthesia/Blood Transfusion Reactions: No Reported Reaction Additional Past Anesthesia/Blood Transfusion Reaction / Comment(s): Pt has received blood in past without reaction. Past Psychological History: No Psychological Hx Reported Smoking Status: Never smoker Past Alcohol Use History: None Reported Past Drug Use History: None Reported - Past Family History Mother Family Medical History: Cancer Father Family Medical History: Unable to Obtain Additional Family Medical History / Comment(s): Father when pt was 1 yrs old. <Abdiel South - Last Filed: 11/04/21 07:14> General Exam Limitations: no limitations <Abdiel South - Last Filed: 11/04/21 07:14> - General Exam Comments Initial Comments: General: Appears in no acute distress. Eston comfortably on stretcher. HEAD: Normal with no signs of head trauma. No step-offs or deformity of the skull. EYES: PERRLA, EOMI, conjunctiva normal, no discharge. Pupils are 3 mm and equal bilaterally. ENT: Hearing grossly intact, normal oropharynx. RESPIRATORY: Clear breath sounds bilaterally. No wheezes, rales, or rhonchi. C/V: Regular rate and rhythm. S1 and S2 auscultated, no edema, peripheral pulses 2+ and intact throughout ABD: Abd is soft, nontender, nondistended EXT: Normal range of motion without any obvious deformity. Pain on palpation of the medial right knee, proximal tib-fib on the right. Pain to palpation over the right hip. Pain on palpation of the midline lumbar and thoracic spines. No tenderness to palpation on palpation of the cervical spine. Pelvis is stable. SKIN: No rashes or lesions observed on exposed skin. NEURO: Alert and oriented 4. No focal sensory or strength deficits. NIH is 0. GCS is 15. difficulty ambulating at baseline. (Abdiel South) Course Vital Signs 11/03/21 11/03/21 13:21 16:27 Temperature 98.6 F Pulse Rate 94 104 H Respiratory 20 22 Rate Blood Pressure 124/89 149/75 O2 Sat by Pulse 98 95 Oximetry Medical Decision Making <Giuseppe Hernandez - Last Filed: 11/03/21 15:54> <Abdiel South - Last Filed: 11/04/21 07:14> - Medical Decision Making X-rays reviewed, no acute fracture dislocation. Patient is able to transfer him bed to the commode. She is eager for discharge. No significant pain. (Giuseppe Hernandez) Based on the patient's presentation and physical exam I'm concerned for acute bony trending injury following the fall at her nursing facility. Neurologic exam is normal at this time. We will obtain CT brain, C-spine, T-spine, L-spine as well as CT abdomen and pelvis without contrast, primarily to evaluate the right hip. Pelvic and ask rate of the chest will be obtained. Right knee x-ray will also be obtained as well as tib-fib. She was in agreement this plan. She'll requests Tylenol for analgesia at this time. I do not believe that laboratory studies are required at this time. CT imaging revealed no acute fractures or subluxations. There are chronic findings. No acute intracranial process. X-ray imaging as a kacie at this time. Patient will be signed out in stable condition centimeters emergency department physician under Dr. Hernandez. (Abdiel South) Disposition Time of Disposition: 15:55 <Giuseppe Hernandez - Last Filed: 11/03/21 15:54> Is patient prescribed a controlled substance at d/c from ED?: No <Abdiel South - Last Filed: 11/04/21 07:14> Clinical Impression: Fall, Hx of assisted use of blood thinners, Musculoskeletal pain Disposition: HOME SELF-CARE Condition: Fair Referrals: Caleb Tsang MD [Primary Care Provider] - 1-2 days
--- NOTE | 2021-11-03 14:20 | CT ---
EXAMINATION TYPE: CT brain hiren kang con DATE OF EXAM: 11/03/2021 COMPARISON: 06/04/2021 HISTORY: fall, pain CT DLP: 1763.6 mGycm Automated exposure control for dose reduction was used. TECHNIQUE: CT scan of the head and cervical spine are performed without contrast. FINDINGS: Generalized degenerative change. Nonspecific white matter changes most typical remote whi te matter ischemia. Calvarium intact. No acute hemorrhage or mass effect. Intracranial atheroscleroti c changes noted. Assessment spinal canal nondiagnostic due to resolution and artifact. Severe multilevel degenerative disc disease. Multilevel facet arthropathy. Could not exclude canal stenosis at multiple levels. Susp ect multilevel foraminal encroachment. Multilevel uncovertebral joint hypertrophy assessment spinal c anal nondiagnostic. Cannot exclude thyroid abnormality. IMPRESSION: 1. Severely limited assessment of the cervical spine with no obvious acute fracture. Significant harsh on artifact noted. Correlate clinically. 2. Degenerative and nonspecific white matter changes most typical remote ischemia.
--- NOTE | 2021-11-03 14:26 | CT ---
EXAMINATION TYPE: CT abdomen pelvis wo con DATE OF EXAM: 11/03/2021 COMPARISON: 07/29/2020 HISTORY: fall, pain CT DLP: 1678.4 mGycm Automated exposure control for dose reduction was used. TECHNIQUE: Helical acquisition of images was performed from the lung bases through the pelvis. FINDINGS: Lack of contrast significantly limits the exam. Bilateral areas of subsegmental consolidation. There is surgical change in the right renal fossa. Ass essment for organ injury is limited by lack of contrast. Left kidney demonstrates no evidence of hydr onephrosis or nephrolithiasis. Adrenal glands normal morphology in the left and nonvisualized on the right. No sizable fluid collection around the spleen or liver. No gallstones. Bowel gas pattern nonspecific. Postsurgical change involving the anterior abdominal wall and vertebral column. Calcifications invol ving the uterus likely in the basis of calcified fibroid. Bladder distends normally. There is subcuta neous edema involving the anterior abdominal wall. Atherosclerotic change aorta. SI joint arthropathy . IMPRESSION: 1. Limited exam due to motion artifact and lack of contrast demonstrates bilateral lower lobe infiltr ate or atelectasis. 2. Post right nephrectomy changes. 3. Nonspecific skin thickening and subcutaneous edema anteriorly correlate for cellulitis. 4. Subsegmental atelectasis or basilar infiltrate.
--- NOTE | 2021-11-03 14:32 | CT ---
EXAMINATION TYPE: CT thor lumbar spine wo con DATE OF EXAM: 11/03/2021 COMPARISON: 06/05/2021 HISTORY: fall pain CT DLP: 1678.4 mGycm Automated exposure control for dose reduction was used. FINDINGS: Exam severely limited due to motion artifact and resolution. Subsegmental consolidation within both l ungs. Assessment spinal canal nondiagnostic. Post right nephrectomy changes noted. Chronic appearing deformity of the left transverse process L1. Postsurgical change results in metallic artifact which o bscures the surgical levels result in nondiagnostic assessment L3-4, L4-5. Multilevel facet arthropat hy and there is SI joint arthropathy with severe degenerative disc disease at L5-S1. Atherosclerotic change aorta. Heart is enlarged and there is coronary artery calcification. Shotty adenopathy in the mediastinum. Subsegmental areas of consolidation are noted. There is a nodule in the left upper lobe measuring 6 mm. IMPRESSION: 1. Limited exam due to artifact and resolution. Severe multilevel degenerative disc disease. 2. Nondiagnostic assessment of the lower lumbar spine due to severe metallic artifact from the patien t's postsurgical hardware. 3. Congenital or chronic appearing deformity of the transverse process of L1 bilaterally. 4. Mild endplate deformity inferiorly T12 is stable from prior exam and chronic. 5. 6 mm upper lobe pulmonary nodule on the left recommend 3 month follow-up CT scan.
--- NOTE | 2021-11-03 15:09 | XR ---
EXAMINATION TYPE: XR chest 1V portable DATE OF EXAM: 11/03/2021 Comparison: 08/05/2021 Clinical History: 76-year-old female fall, pain Findings: Partly visualized right shoulder arthroplasty. Severe degenerative change left shoulder. Low lung vol umes. Asymmetric elevation left hemidiaphragm unchanged. Heart borderline enlarged. Interstitial and vascular prominence. Some patchy left basilar opacity. No pneumothorax. Impression: Limited due to large patient body habitus. Borderline cardiomegaly and volume loss at the left base w ith patchy opacity, likely atelectasis. The left hemidiaphragm remains chronically elevated. If kim rn for hemidiaphragmatic paralysis, consider fluoroscopic sniff test.
--- NOTE | 2021-11-03 15:14 | XR ---
EXAMINATION TYPE: XR pelvis AP view, XR tibia fibula 2 views RT, XR knee complete 3 views RT DATE OF EXAM: 11/03/2021 COMPARISON: NONE HISTORY: 76-year-old female pain after fall FINDINGS: Pelvis: Limited assessment of the femoral necks due to external rotation of the hips at the time of p atient positioning. Further limitation due to large patient body habitus and osteopenia. The SI join ts appear symmetric and intact. Posterior and interbody lumbar fusion hardware partially visualized. No displaced fracture seen. No subluxation or dislocation. Right knee: Osteopenia. Lateral and posterior sided soft tissue swelling at the knee and generalized soft tissue swelling of the visualized upper leg. Extensor mechanism appears intact. Prominent tricompartmental d egenerative spurring. Severe loss of cartilage and joint space lateral compartment. No significant ubaldo int effusion. Right tibia/fibula: Generalized soft tissue swelling also noted throughout the length, ankle, and visualized hind foot. N o acute fracture. Possible thickening of the mid to distal third Achilles tendon. Ankle joint appears grossly intact. IMPRESSION: 1. Pelvis: Limitations due to external rotation of the hips, large body habitus, and osteopenia. No d isplaced fracture seen. 2. Right Knee: Tricompartment osteoarthrosis, greatest in the lateral compartment. Lateral posterior soft tissue swelling at the knee. Osteopenia. No acute osseous abnormality seen. 3. Right Tibia/fibula: Generalized soft tissue swelling. No acute osseous abnormality seen. Superimpo sition artifact versus possible thickening of the mid to distal third Achilles tendon on the lateral view. Correlate to exclude underlying Achilles tendinopathy.
[2021-11-03 16:29] VITALS: BP 149/75; PULSE 104; RESP 22
== END 2021-11-03 16:32 | disposition home or self-care (01) ==
LOC: EC 13:11
DX: M25.561 Pain in right knee (principal); M25.551 Pain in right hip; J44.9 Chronic obstructive pulmonary disease, unspecified; I11.0 Hypertensive heart disease with heart failure; I50.9 Heart failure, unspecified; E11.9 Type 2 diabetes mellitus without complications; E78.5 Hyperlipidemia, unspecified; E11.319 Type 2 diabetes mellitus with unspecified diabetic retinopathy without macular edema; H54.8 Legal blindness, as defined in USA; E11.40 Type 2 diabetes mellitus with diabetic neuropathy, unspecified; Z79.899 Other long term (current) drug therapy; Z88.8 Allergy status to other drugs, medicaments and biological substances; Z79.84 Long term (current) use of oral hypoglycemic drugs; Z79.01 Long term (current) use of anticoagulants; Z79.4 Long term (current) use of insulin; W01.0XXA Fall on same level from slipping, tripping and stumbling without subsequent striking against object, initial encounter; Y92.009 Unspecified place in unspecified non-institutional (private) residence as the place of occurrence of the external cause
CPT/HCPCS: 70450; 71045; 72125; 72128; 72131; 72170; 74176; 99284

== ENCOUNTER → 2021-12-17 | Outpatient (CLI) | payer MEDICARE, OTHER ==
--- NOTE | 2021-12-20 08:27 | MM ---
Reason for exam: clinical finding. Last mammogram was performed 2 years and 4 months ago. History: Patient is postmenopausal, has history of other cancer at age 24, and has history of high-risk lesion on a previous biopsy at age 23. Family history of breast cancer in mother at age 50. Excisional biopsy of the left breast, 1978. Took hormonal contraceptives for 6 years beginning at age 18. Physical Findings: Nurse did not find any significant physical abnormalities on exam. MG 3D Diag Mammo W/Cad JOHN Bilateral CC and MLO view(s) were taken. Spot compression CC, spot compression MLO, and LM view(s) were taken of the right breast. Prior study comparison: August 07, 2019, bilateral MG 3d diag mammo w/cad JOHN. June 06, 2016, mammogram, performed at [place]. The breast tissue is heterogeneously dense. This may lower the sensitivity of mammography. Nodular density lower inner right breast 4 cm from nipple. These results were verbally communicated with the patient and result sheet given to the patient on 12/17/21. ASSESSMENT: Incomplete: need additional imaging evaluation, BI-RAD 0 RECOMMENDATION: Ultrasound of the right breast.
--- NOTE | 2021-12-20 08:28 | USB ---
Reason for exam: additional evaluation requested from abnormal screening. History: Patient is postmenopausal, has history of other cancer at age 24, and has history of high-risk lesion on a previous biopsy at age 23. Family history of breast cancer in mother at age 50. Excisional biopsy of the left breast, 1978. Took hormonal contraceptives for 6 years beginning at age 18. US Breast Limited RT Right limited breast ultrasound including focal area of concern, retroareolar and axilla demonstrates no cystic or solid lesion seen. These results were verbally communicated with the patient and result sheet given to the patient on 12/17/21. ASSESSMENT: Probably benign, BI-RAD 3 RECOMMENDATION: Follow-up diagnostic mammogram of the right breast in 6 months.
== END | disposition home or self-care (01) ==
LOC: RADMAMWWP 14:00
PROVIDERS: ATTEND Family Medicine
DX: R92.8 Other abnormal and inconclusive findings on diagnostic imaging of breast (principal)
CPT/HCPCS: 77066; 76642; G0279; 77062

== ENCOUNTER 2022-03-10 22:42 | Inpatient (IN) | payer MEDICARE, OTHER ==
[2022-03-10] MEDS ORDERED: methylPREDNISolone SOD SUCCI 125 MG/2 ML VIAL IV STA (23:09)
[2022-03-10] MEDS ORDERED: ALBUTEROL NEBULIZED 2.5 MG/3 ML INHALATION STA (23:09)
[2022-03-10] MEDS ORDERED: IPRATROPIUM 0.5 MG/2.5 ML NEBU INHALATION STA (23:09)
[2022-03-10] MEDS ORDERED: SODIUM CHLORIDE 0.9% 1,000 ML IV STA (23:09)
--- NOTE | 2022-03-10 23:09 | ED ---
SOB HPI - General Stated Complaint: Altered Mental Status Time Seen by Provider: 03/10/22 23:08 Source: RN notes reviewed, old records reviewed Mode of arrival: EMS Limitations: altered mental status - History of Present Illness Initial Comments: This is a 69-year-old female to the ER for evaluation. Patient presents today for evaluation cough congestion increasing shortness of breath. No recent travel history or sick contacts. History of significant COPD. No current chest pain. Patient states symptoms began relatively rapidly and progressing mildly. Her shortness of breath his been increasing. Patient also has multiple medical problems diabetes high blood pressure cholesterol shortness of breath is compounded by the fact that patient has heart failure. MD Complaint: shortness of breath, cough -: hour(s) Radiation: back Severity: severe Severity scale (1-10): 9 Quality: aching Consistency: constant Improves With: nothing Worsens With: exertion, movement Known History Of: COPD Context: recent URI, recent illness Associated Symptoms: cough, sputum production Treatments Prior to Arrival: none - Related Data Home Medications Medication Instructions Recorded Confirmed Atorvastatin [Lipitor] 20 mg PO HS 03/28/21 11/03/21 Furosemide [Lasix] 40 mg PO DAILY 03/28/21 11/03/21 Acetaminophen Tab [Tylenol] 650 mg PO Q4H PRN 06/25/21 11/03/21 Cetirizine HCl 10 mg PO HS 06/25/21 11/03/21 Rivaroxaban [Xarelto] 20 mg PO DAILY 06/25/21 11/03/21 metFORMIN HCL [Glucophage] 1,000 mg PO Q12H 06/25/21 11/03/21 Insulin Lispro [humaLOG Kwikpen] See Protocol SQ AC-TID 08/05/21 11/03/21 Mag Hydrox/Aluminum Hyd/Simeth 10 ml PO Q4H PRN 08/05/21 11/03/21 [Mylanta Maximum Strength Liq] Melatonin 3 mg PO HS 08/05/21 11/03/21 Psyllium Husk 100% [Metamucil 6 gm PO DAILY 08/05/21 11/03/21 Packet] Semaglutide [Ozempic] 0.25 mg SQ TU 08/05/21 11/03/21 Insulin Lispro [humaLOG Kwikpen] See Protocol SQ AC-TID 11/03/21 11/03/21 Nitroglycerin Sl Tabs [Nitrostat] 0.4 mg SL Q5M PRN 11/03/21 11/03/21 Sertraline [Zoloft] 25 mg PO HS 11/03/21 11/03/21 Previous Rx's Medication Instructions Recorded Aspirin 81 mg PO DAILY chew 06/26/21 Albuterol Inhaler [Ventolin Hfa 1 puff INHALATION RT-QID PRN #8 gm 08/06/21 Inhaler] Budesonide-Formot 160-4.5 Mcg 2 puff INHALATION RT-BID #1 08/06/21 [Symbicort 160-4.5 Mcg Inhaler] dispenser Allergies Allergy/AdvReac Type Severity Reaction Status Date / Time rofecoxib [From Vioxx] AdvReac Confusion Verified 11/03/21 13:19 Review of Systems ROS Statement: Those systems with pertinent positive or pertinent negative responses have been documented in the HPI. ROS Other: All systems not noted in ROS Statement are negative. Past Medical History Past Medical History: Cancer, Heart Failure, COPD, Diabetes Mellitus, Eye Disorder, Hyperlipidemia, Hypertension, Pneumonia Additional Past Medical History / Comment(s): Kidney cancer post-nephrectomy on the right, IDDM type II, neuropathy bilateral hands/feet, bilateral diabetic retinopathy with legal blindness in the past but vision better since eye injections, recent diagnosis of DVT of the right lower extremity, bronchitis, home oxygen at 3L/NC ATC, chronic elevation of the left hemidiaphragm, obstructive sleep apnea currently not using device, thoracolumbar kyphoscoliosis, constipation History of Any Multi-Drug Resistant Organisms: None Reported Past Surgical History: Appendectomy, Back Surgery, Hernia Repair, Joint Replace ment, Tubal Ligation Additional Past Surgical History / Comment(s): Low back surgery, total R shoulder, R nephrectomy, several abdominal hernia surgeries, colonoscopy Past Anesthesia/Blood Transfusion Reactions: No Reported Reaction Additional Past Anesthesia/Blood Transfusion Reaction / Comment(s): Pt has received blood in past without reaction. Past Psychological History: No Psychological Hx Reported Smoking Status: Never smoker Past Alcohol Use History: None Reported Past Drug Use History: None Reported - Past Family History Mother Family Medical History: Cancer Father Family Medical History: Unable to Obtain Additional Family Medical History / Comment(s): Father when pt was 1 yrs old. General Exam General appearance: alert, anxious, in distress Head exam: Present: atraumatic, normocephalic, normal inspection Eye exam: Present: normal appearance, PERRL, EOMI. Absent: scleral icterus, conjunctival injection, periorbital swelling ENT exam: Present: normal exam, mucous membranes dry Neck exam: Present: normal inspection. Absent: tenderness, meningismus, lymphadenopathy Respiratory exam: Present: respiratory distress, wheezes, accessory muscle use, decreased breath sounds, prolonged expiratory. Absent: rales, rhonchi, stridor Cardiovascular Exam: Present: normal rhythm, tachycardia, normal heart sounds. Absent: systolic murmur, diastolic murmur, rubs, gallop, clicks GI/Abdominal exam: Present: soft, normal bowel sounds. Absent: distended, tenderness, guarding, rebound, rigid Extremities exam: Present: normal inspection, full ROM, normal capillary refill. Absent: tenderness, pedal edema, joint swelling, calf tenderness Back exam: Present: normal inspection Neurological exam: Present: alert, oriented X3, CN II-XII intact Psychiatric exam: Present: normal affect, normal mood Skin exam: Present: warm, dry, intact, normal color. Absent: rash Course Vital Signs 03/10/22 03/10/22 03/11/22 22:49 23:12 00:06 Temperature 98.9 F Pulse Rate 100 100 Pulse Rate [ 105 H Right] Respiratory 18 24 Rate Blood Pressure Blood Pressure 152/70 [Right Arm] O2 Sat by Pulse 94 L 94 L Oximetry 03/11/22 03/11/22 03/11/22 00:17 02:21 03:00 Temperature Pulse Rate 101 H 101 H 105 H Pulse Rate [ Right] Respiratory 24 20 Rate Blood Pressure 135/82 135/73 Blood Pressure [Right Arm] O2 Sat by Pulse 94 L 96 Oximetry 03/11/22 03:56 Temperature Pulse Rate 105 H Pulse Rate [ Right] Respiratory 20 Rate Blood Pressure 156/68 Blood Pressure [Right Arm] O2 Sat by Pulse 96 Oximetry - Reevaluation(s) Reevaluation #1: 03/10/22 23:23 Medical record is reviewed Medical Decision Making - Lab Data Result diagrams: 03/11/22 03:55 03/11/22 03:55 Lab Results 03/11/22 03/11/22 03/11/22 Range/Units 01:06 03:55 03:55 WBC 8.5 (3.8-10.6) k/uL RBC 3.32 L (3.80-5.40) m/uL Hgb 9.1 L (11.4-16.0) gm/dL Hct 30.1 L (34.0-46.0) % MCV 90.7 (80.0-100.0) fL MCH 27.5 (25.0-35.0) pg MCHC 30.3 L (31.0-37.0) g/dL RDW 15.6 H (11.5-15.5) % Plt Count 241 (150-450) k/uL MPV 7.4 Neutrophils % 66 % Lymphocytes % 16 % Monocytes % 6 % Eosinophils % 9 % Basophils % 1 % Neutrophils # 5.6 (1.3-7.7) k/uL Lymphocytes # 1.4 (1.0-4.8) k/uL Monocytes # 0.5 (0-1.0) k/uL Eosinophils # 0.8 H (0-0.7) k/uL Basophils # 0.1 (0-0.2) k/uL Hypochromasia Moderate PT 12.6 H (9.0-12.0) sec INR 1.2 H (<1.2) APTT 27.5 (22.0-30.0) sec Sodium (137-145) mmol/L Potassium (3.5-5.1) mmol/L Chloride (98-107) mmol/L Carbon Dioxide (22-30) mmol/L Anion Gap mmol/L BUN (7-17) mg/dL Creatinine (0.52-1.04) mg/dL Est GFR (CKD-EPI)AfAm (>60 ml/min/1.73 sqM) Est GFR (CKD-EPI)NonAf (>60 ml/min/1.73 sqM) Glucose (74-99) mg/dL Plasma Lactic Acid Frankie (0.7-2.0) mmol/L Calcium (8.4-10.2) mg/dL Magnesium (1.6-2.3) mg/dL Total Bilirubin (0.2-1.3) mg/dL AST (14-36) U/L ALT (4-34) U/L Alkaline Phosphatase (38-126) U/L Troponin I (0.000-0.034) ng/mL Total Protein (6.3-8.2) g/dL Albumin (3.5-5.0) g/dL Urine Color Yellow Urine Appearance Cloudy H (Clear) Urine pH 6.0 (5.0-8.0) Ur Specific [place] 1.011 (1.001-1.035) Urine Protein Negative (Negative) Urine Glucose (UA) Negative (Negative) Urine Ketones Negative (Negative) Urine Blood Trace H (Negative) Urine Nitrite Negative (Negative) Urine Bilirubin Negative (Negative) Urine Urobilinogen <2.0 (<2.0) mg/dL Ur Leukocyte Esterase Large H (Negative) Urine RBC 5 (0-5) /hpf Urine WBC >182 H (0-5) /hpf Urine WBC Clumps Many H (None) /hpf Ur Squamous Epith Cells 3 (0-4) /hpf Urine Bacteria Few H (None) /hpf Hyaline Casts 62 H (0-2) /lpf Urine Mucus Rare H (None) /hpf 03/11/22 03/11/22 03/11/22 Range/Units 03:55 03:55 03:55 WBC (3.8-10.6) k/uL RBC (3.80-5.40) m/uL Hgb (11.4-16.0) gm/dL Hct (34.0-46.0) % MCV (80.0-100.0) fL MCH (25.0-35.0) pg MCHC (31.0-37.0) g/dL RDW (11.5-15.5) % Plt Count (150-450) k/uL MPV Neutrophils % % Lymphocytes % % Monocytes % % Eosinophils % % Basophils % % Neutrophils # (1.3-7.7) k/uL Lymphocytes # (1.0-4.8) k/uL Monocytes # (0-1.0) k/uL Eosinophils # (0-0.7) k/uL Basophils # (0-0.2) k/uL Hypochromasia PT (9.0-12.0) sec INR (<1.2) APTT (22.0-30.0) sec Sodium 135 L (137-145) mmol/L Potassium 4.4 (3.5-5.1) mmol/L Chloride 98 (98-107) mmol/L Carbon Dioxide 31 H (22-30) mmol/L Anion Gap 6 mmol/L BUN 32 H (7-17) mg/dL Creatinine 0.97 (0.52-1.04) mg/dL Est GFR (CKD-EPI)AfAm 65 (>60 ml/min/1.73 sqM) Est GFR (CKD-EPI)NonAf 56 (>60 ml/min/1.73 sqM) Glucose 107 H (74-99) mg/dL Plasma Lactic Acid Frankie 1.1 (0.7-2.0) mmol/L Calcium 8.9 (8.4-10.2) mg/dL Magnesium 1.3 L (1.6-2.3) mg/dL Total Bilirubin 0.7 (0.2-1.3) mg/dL AST 21 (14-36) U/L ALT 11 (4-34) U/L Alkaline Phosphatase 49 (38-126) U/L Troponin I <0.012 (0.000-0.034) ng/mL Total Protein 7.0 (6.3-8.2) g/dL Albumin 3.5 (3.5-5.0) g/dL Urine Color Urine Appearance (Clear) Urine pH (5.0-8.0) Ur Specific [place] (1.001-1.035) Urine Protein (Negative) Urine Glucose (UA) (Negative) Urine Ketones (Negative) Urine Blood (Negative) Urine Nitrite (Negative) Urine Bilirubin (Negative) Urine Urobilinogen (<2.0) mg/dL Ur Leukocyte Esterase (Negative) Urine RBC (0-5) /hpf Urine WBC (0-5) /hpf Urine WBC Clumps (None) /hpf Ur Squamous Epith Cells (0-4) /hpf Urine Bacteria (None) /hpf Hyaline Casts (0-2) /lpf Urine Mucus (None) /hpf - EKG Data -: EKG Interpreted by Me (EKG is sinus tachycardia 103 OH 114 QRS 150 QTC 373) Disposition Clinical Impression: Weakness, Chronic obstructive lung disease, Altered mental status, Acute exacerbation of chronic obstructive pulmonary disease, Acute hypoxemic respiratory failure, Congestive heart failure Disposition: ADMITTED IP TO THIS HOSP Condition: Fair Is patient prescribed a controlled substance at d/c from ED?: No Referrals: Caleb Tsang MD [Primary Care Provider] - 1-2 days
--- NOTE | 2022-03-10 23:32 | XR ---
EXAMINATION TYPE: XR chest 1V portable DATE OF EXAM: 03/10/2022 COMPARISON: 11/03/2021 HISTORY: Short of breath TECHNIQUE: Single view FINDINGS: There is elevated left diaphragm. There is some atelectasis left lung base. No heart failur e seen. There is coarsening of the lung markings. IMPRESSION: There is chronic atelectasis at the left lung base without change. Mild pulmonary fibrosi s.
[2022-03-11 01:31] LABS: Appearance,Urine Cloudy (Clear); Bilirubin,Urine Negative (Negative); Blood,Urine Trace (Negative); Color,Urine Yellow; Glucose,Urine (UA) Negative (Negative); Ketones,Urine Negative (Negative); Leukocyte Esterase,Urine Large (Negative); Nitrite,Urine Negative (Negative); Protein,Urine Negative (Negative); Specific Gravity,Urine 1.011 (1.001-1.035); Urobilinogen,Urine <2.0 mg/dL (<2.0)
[2022-03-11 01:32] LABS: Bacteria,Urine Few /hpf; Hyaline Casts,Urine 62 /lpf (0-2); Mucus,Urine Rare /hpf; RBC,Urine 5 /hpf (0-5); Squamous Epithelial Cell,Urine 3 /hpf (0-4); WBC,Urine >182 /hpf (0-5)
--- NOTE | 2022-03-11 04:13 | XR ---
EXAMINATION TYPE: XR chest 1V DATE OF EXAM: 03/11/2022 COMPARISON: 03/10/2022 HISTORY: Line placement TECHNIQUE: FINDINGS: There is right jugular catheter with tip over the right atrium. There are chest leads. Ther e is right shoulder prosthesis. There is some atelectasis left lung base. No heart failure. There is elevated left diaphragm. IMPRESSION: Left diaphragm elevation with atelectasis unchanged compared to yesterday. No heart failu re.
[2022-03-11 04:15] LABS: Basophils # (A) 0.1 k/uL (0-0.2); Basophils % (A) 1 %; Eosinophils # (A) 0.8 k/uL (0-0.7); Eosinophils % (A) 9 %; HCT 30.1 % (34.0-46.0); HGB 9.1 gm/dL (11.4-16.0); Hypochromasia Moderate; Lymphocytes # (A) 1.4 k/uL (1.0-4.8); Lymphocytes % (A) 16 %; MCH 27.5 pg (25.0-35.0); MCHC 30.3 g/dL (31.0-37.0); MCV 90.7 fL (80.0-100.0); Mean Platelet Volume 7.4; Monocytes # (A) 0.5 k/uL (0-1.0); Monocytes % (A) 6 %; Neutrophils # (A) 5.6 k/uL (1.3-7.7); Neutrophils % (A) 66 %; Platelet Count 241 k/uL (150-450); RBC 3.32 m/uL (3.80-5.40); RDW 15.6 % (11.5-15.5); WBC 8.5 k/uL (3.8-10.6)
[2022-03-11 04:24] LABS: INR 1.2 (<1.2); Partial Thromboplastin Time 27.5 sec (22.0-30.0); Prothrombin Time 12.6 sec (9.0-12.0)
[2022-03-11 04:25] LABS: Albumin 3.5 g/dL (3.5-5.0); Calcium 8.9 mg/dL (8.4-10.2); Magnesium 1.3 mg/dL (1.6-2.3); Potassium 4.4 mmol/L (3.5-5.1); Total Bilirubin 0.7 mg/dL (0.2-1.3)
[2022-03-11] MEDS ORDERED: IPRATROPIUM-ALBUTEROL 3 ML NEB INHALATION STA (04:25)
[2022-03-11] MEDS ORDERED: MORPHINE SULFATE 4 MG/ML SYRINGE IV PRN (04:36)
[2022-03-11] MEDS ORDERED: LORazepam 2 MG/ML INJ IV PRN (04:36)
[2022-03-11] MEDS ORDERED: NALOXONE 0.4 MG/ML 1 ML VIAL IV PRN (04:36)
[2022-03-11] MEDS ORDERED: ONDANSETRON 4 MG/2 ML VIAL IVP PRN (04:36)
[2022-03-11] MEDS: methylPREDNISolone SOD SUCCI 125 MG/2 ML VIAL IV SCH ×2 (05:48→11:45)
[2022-03-11] MEDS: MAGNESIUM SULFATE-D5W PMX 1 GM in DEXTROSE/WATER 1 100ML.BAG IVPB SCH ×2 (05:53→07:25)
[2022-03-11] MEDS: ALBUTEROL NEBULIZED 2.5 MG/3 ML INHALATION SCH ×4 (07:26→20:05)
[2022-03-11 08:47] LABS: VBG PH 7.34 (7.31-7.41)
[2022-03-11] MEDS ORDERED: FUROSEMIDE 40 MG TAB PO SCH (09:00)
[2022-03-11] MEDS ORDERED: DOCUSATE 100 MG CAP PO PRN (09:36)
[2022-03-11] MEDS ORDERED: LACTULOSE 20 GM/30 ML CUP PO PRN (09:36)
--- NOTE | 2022-03-11 10:43 | P.HPIM ---
History of Present Illness H&P Date: 03/11/22 Chief Complaint: Shortness of Breath Patient is a 77-year-old female with a known history of hypertension, hyperlipidemia, osteoarthritis, history of PE/DVT on anticoagulation with Xarelto, history of right nephrectomy due to renal renalcancer, diabetes type 2 insulin-dependent, bilateral diabetic peripheral neuropretinopathy with legal blid chronic , chronic hypercapnic respiratory failure on oxygen at 3 L via nasal cannula, obstructive sleep apnea, kyphoscoliosis and other multiple medical problems, medical debility and bedridden currently at [facility] was sent to hospital due to cough congestion and shortness of breath. Shortness of breath has been increasing for the past few days. Patient denied any complaints of chest pain. Patient does have chronic leg swelling. No fever no chills. No recent illnesses. Patient does have chronically elevated left hemidiaphragm. Chest x-ray showed there is chronic atelectasis in the left lung base without change. Mild pulmonary fibrosis. EKG showed sinus tachycardia. Patient was tachycardic on admission and this morning her breathing status worsened and was placed on BiPAP. ABGs were ordered. Lab data showed WBC 8.4 hemoglobin 9.1 and platelets 241 sodium 135 potassium 4.4 chloride 98 bicarb is 31 BUN 32 and creatinine 0.97 magnesium 1.3 Troponin x2 negative proBNP of 1200 and urinalysis showed cloudy with trace blood large leukocyte esterase and elevated WBCs. 2D echocardiogram done in May 2021 showed ejection fraction 50 to 55%. LA is mildly dilated. Mild aortic stenosis. Severe mitral annular calcification and mild MR. Moderate to severe TR and severe pulmonary hypertension. Right ventricular systolic pressure 83.37 Review of Systems Complete review of systems could not be obtained from the patient. Past Medical History Past Medical History: Cancer, Chest Pain / Angina, Heart Failure, COPD, Dementia, Diabetes Mellitus, Deep Vein Thrombosis (DVT), Eye Disorder, Hyperlipidemia, Hypertension, Osteoarthritis (OA), Pneumonia, Pulmonary Embolus (PE) Additional Past Medical History / Comment(s): Kidney cancer post-nephrectomy on the right, IDDM type II, neuropathy bilateral hands/feet, bilateral diabetic retinopathy with legal blindness in the past but vision better since eye injections, DVT of the right lower extremity, bronchitis, chronic hypercapnic respiratory failure, oxygen at 3L/NC ATC, chronic elevation of the left hemidiaphragm, obstructive sleep apnea not using device, thoracolumbar kyphoscoliosis, arthritis in several joints, edema, insomnia, anemia, UTIs and current UTI being tx with antibiotic, occasional incontinence, chronic rhinitis, constipation History of Any Multi-Drug Resistant Organisms: None Reported Past Surgical History: Appendectomy, Back Surgery, Hernia Repair, Joint Replacement, Tubal Ligation Additional Past Surgical History / Comment(s): Low back surgery, total R shoulder, R nephrectomy, several abdominal hernia surgeries, colonoscopy Past Anesthesia/Blood Transfusion Reactions: No Reported Reaction Additional Past Anesthesia/Blood Transfusion Reaction / Comment(s): Pt has received blood in past without reaction. Smoking Status: Never smoker - Past Family History Mother Family Medical History: Cancer Father Family Medical History: Unable to Obtain Additional Family Medical History / Comment(s): Father when pt was 1 yrs old. Medications and Allergies Home Medications Medication Instructions Recorded Confirmed Type Atorvastatin [Lipitor] 20 mg PO HS@209903/28/21 03/11/22 History Furosemide [Lasix] 40 mg PO DAILY@89903/28/21 03/11/22 History Acetaminophen Tab [Tylenol] 650 mg PO Q4H PRN 06/25/21 03/11/22 History Cetirizine HCl 10 mg PO HS@209906/25/21 03/11/22 History Rivaroxaban [Xarelto] 20 mg PO DAILY@89906/25/21 03/11/22 History metFORMIN HCL [Glucophage] 1,000 mg PO BID@899,209906/25/21 03/11/22 History Mag Hydrox/Aluminum Hyd/Simeth 10 ml PO Q4H PRN 08/05/21 03/11/22 History [Mylanta Maximum Strength Liq] Melatonin 3 mg PO HS@209908/05/21 03/11/22 History Psyllium Husk 100% [Metamucil 6 gm PO DAILY@89908/05/21 03/11/22 History Packet] Semaglutide [Ozempic] 0.25 mg SQ TU 08/05/21 03/11/22 History Albuterol Inhaler [Ventolin Hfa 1 puff INHALATION RT-QID PRN #8 gm 08/06/21 03/11/22 Rx Inhaler] Insulin Lispro [humaLOG Kwikpen] See Protocol SQ AC-TID 11/03/21 03/11/22 History Nitroglycerin Sl Tabs [Nitrostat] 0.4 mg SL Q5M PRN 11/03/21 03/11/22 History Sertraline [Zoloft] 25 mg PO HS@209911/03/21 03/11/22 History Albuterol Nebulized [Ventolin 2.5 mg INHALATION RT-Q6H PRN 03/11/22 03/11/22 History Nebulized] Aspirin 81 mg PO DAILY@0900 03/11/22 03/11/22 History Budesonide-Formot 160-4.5 Mcg 2 puff INHALATION RT-BID@09,209903/11/22 03/11/22 History [Symbicort 160-4.5 Mcg Inhaler] Cefuroxime [Ceftin] 250 mg PO BID@0900,209903/11/22 03/11/22 History Cefuroxime [Ceftin] 250 mg PO ONCE 03/11/22 03/11/22 History Docusate [Colace] 100 mg PO BID PRN 03/11/22 03/11/22 History Ferrous Sulfate [Feosol] 325 mg PO BID@0900,209903/11/22 03/11/22 History Insulin Glargine,Hum.rec.anlog 15 unit SQ DAILY@0903/11/22 03/11/22 History [Lantus Solostar Pen] Lactulose 10 gm PO BID PRN 03/11/22 03/11/22 History Menthol [Biofreeze] 1 applic TOPICAL Q6H PRN 03/11/22 03/11/22 History guaiFENesin [guaiFENesin Oral 100 mg PO Q4H PRN 03/11/22 03/11/22 History Solution] Allergies Allergy/AdvReac Type Severity Reaction Status Date / Time rofecoxib [From Vioxx] AdvReac Confusion Verified 03/11/22 06:54 Physical Exam Vitals: Vital Signs Temp Pulse Pulse Resp BP BP Pulse Ox 03/11/22 07:45 112 H 03/11/22 07:41 108 H 03/11/22 07:30 92 L 03/11/22 07:26 113 H 03/11/22 05:51 102 H 32 H 143/60 94 L 03/11/22 05:32 109 H 03/11/22 05:17 111 H 03/11/22 04:55 102 H 32 H 155/86 94 L 03/11/22 03:56 105 H 20 156/68 96 03/11/22 03:00 105 H 20 135/73 96 03/11/22 02:21 101 H 24 135/82 94 L 03/11/22 00:17 101 H 03/11/22 00:06 100 03/10/22 23:12 100 24 94 L 03/10/22 22:49 98.9 F 105 H 18 152/70 94 L Intake and Output 03/10/22 03/11/22 03/11/22 22:59 06:59 14:59 Other: Voiding Method External Catheter Weight 90.718 kg 90.718 kg PHYSICAL EXAMINATION: Patient is lying in the bed. Awake but drowsy. Tries to open her eyes with verbal stimuli. Currently BiPAP HEENT: Normocephalic. Neck is supple. Pupils reactive. Nostrils clear. Oral cavity is moist. Neck reveals no JVD, carotid bruits, or thyromegaly. CHEST EXAMINATION: Trachea is central. Symmetrical expansion. Bibasilar diminished sounds. Scattered crackles. Nonlabored breathing. CARDIAC: Normal S1, S2 with no gallops. No murmurs ABDOMEN: Soft. Bowel sounds normal. No organomegaly. No abdominal bruits. Extremities: Bilateral 2+ pedal. No clubbing or cyanosis Neurologically patient is lethargic and drowsy. No gross focal deficits noted Skin: No rash or skin lesions. Psychiatric: Coperative. Nonsuicidal Musculoskeletal: No joint swelling or deformity. Results CBC & Chem 7: 03/11/22 03:55 03/11/22 03:55 Labs: Abnormal Lab Results - Last 24 Hours (Table) 03/11/22 03/11/22 03/11/22 Range/Units 01:06 03:55 03:55 RBC 3.32 L (3.80-5.40) m/uL Hgb 9.1 L (11.4-16.0) gm/dL Hct 30.1 L (34.0-46.0) % MCHC 30.3 L (31.0-37.0) g/dL RDW 15.6 H (11.5-15.5) % Eosinophils # 0.8 H (0-0.7) k/uL PT 12.6 H (9.0-12.0) sec INR 1.2 H (<1.2) VBG pCO2 (37-51) mmHg Sodium (137-145) mmol/L Carbon Dioxide (22-30) mmol/L BUN (7-17) mg/dL Glucose (74-99) mg/dL Magnesium (1.6-2.3) mg/dL Urine Appearance Cloudy H (Clear) Urine Blood Trace H (Negative) Ur Leukocyte Esterase Large H (Negative) Urine WBC >182 H (0-5) /hpf Urine WBC Clumps Many H (None) /hpf Urine Bacteria Few H (None) /hpf Hyaline Casts 62 H (0-2) /lpf Urine Mucus Rare H (None) /hpf 03/11/22 03/11/22 Range/Units 03:55 08:35 RBC (3.80-5.40) m/uL Hgb (11.4-16.0) gm/dL Hct (34.0-46.0) % MCHC (31.0-37.0) g/dL RDW (11.5-15.5) % Eosinophils # (0-0.7) k/uL PT (9.0-12.0) sec INR (<1.2) VBG pCO2 53 H (37-51) mmHg Sodium 135 L (137-145) mmol/L Carbon Dioxide 31 H (22-30) mmol/L BUN 32 H (7-17) mg/dL Glucose 107 H (74-99) mg/dL Magnesium 1.3 L (1.6-2.3) mg/dL Urine Appearance (Clear) Urine Blood (Negative) Ur Leukocyte Esterase (Negative) Urine WBC (0-5) /hpf Urine WBC Clumps (None) /hpf Urine Bacteria (None) /hpf Hyaline Casts (0-2) /lpf Urine Mucus (None) /hpf Thrombosis Risk Factor Assmnt - DVT/VTE Prophylaxis DVT/VTE Prophylaxis: Pharmacologic Prophylaxis ordered - Choose All That Apply Any of the Below Risk Factors Present?: Yes Each Factor Represents 1 point: Abnormal pulmonary function (COPD), Medical pt on bed rest, Obesity (BMI >25), Serious lung disease incl. pneumonia (< 1month) Other Risk Factors: Yes Each Risk Factor Represents 2 Points: Patient confined to bed, Malignancy Each Risk Factor Represents 3 Points: Age 75 years or older, History of DVT/PE Other congenital or acquired thrombophilia - If yes, enter type in comment: No Thrombosis Risk Factor Assessment Total Risk Factor Score: 14 Thrombosis Risk Factor Assessment Level: High Risk Assessment and Plan Assessment: Acute on chronic hypoxic and hypercapnic respiratory failure requiring BiPAP. Acute COPD exacerbation with mild pulmonary fibrosis 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 Acute on chronic CHF with preserved EF Acute urinary tract infection Hypomagnesia, replaced Chronic hypoxic and hypercapnic respiratory failure on 3 L oxygen via nasal cannula Chronic left hemidiaphragm elevation History of DVT/PE on Xarelto Diabetes type 2 insulin-dependent Hypertension Hyperlipidemia Diabetic peripheral neuropathy Diabetic retinopathy with legal blindness History of right nephrectomy Obstructive sleep apnea not using CPAP Thoracolumbar kyphoscoliosis Medical debility and bedridden currently at [facility] DVT prophylaxis patient is already on Xarelto Obesity BMI 37.8 CODE STATUS DNR/DNI Plan: Patient was placed on BiPAP and ABGs were ordered. Continue with medical Solu-Medrol IV 60 mg every 6 hourly and albuterol inhalation. Continue with Lasix IV 40 mg daily and follow-up renal function. will consult pulmonary. Continue with Levemir and insulin sliding scale. Continue with ceftriaxone follow-up urine culture report. Prognosis is guarded at this time. Time with Patient: Greater than 30
[2022-03-11] MEDS: INSULIN DETEMIR (LEVEMIR) 100 UNIT/ML SYR SQ SCH (10:46)
[2022-03-11] MEDS: RIVAROXABAN 20 MG TAB PO SCH (10:46)
[2022-03-11] MEDS ORDERED: FUROSEMIDE 10 MG/ML 4 ML VIAL IV SCH (11:00)
[2022-03-11 11:44] LABS: Glucose,Whole Blood 225 mg/dL (75-99)
--- NOTE | 2022-03-11 15:10 | P.CNPUL ---
History of Present Illness Consult date: 03/11/22 Requesting physician: Micheal Boo Reason for consult: dyspnea Chief complaint: Altered mental status, cough, congestion, shortness of breath History of present illness: This is a 77-year-old female patient past medical history of hypertension, hyperlipidemia, diabetes mellitus type 2, with diabetic retinopathy, previous history of PE/DVT on Xarelto, home oxygen at 3 L, chronic elevation left hemidiaphragm, obstructive sleep apnea not on CPAP on a regular basis, chronic back pain, and previous history of hypernephroma status post right nephrectomy. Patient is a lifetime nonsmoker. Patient resides at the [facility] on [facility]. On 03/10/2022 patient came in to the hospital by EMS for evaluation of altered mental status. Patient was also noted to have worsening shortness of breath. Chest x-ray in the emergency department showed chronic atelectasis at the left lung base without change, coarsening of the lung markings with possibility of mild pulmonary fibrosis. Follow-up chest x-ray today showed left hemidiaphragm elevation with atelectasis unchanged compared to yesterday's x-ray. Admission blood work showed white blood cell count of 8.5, hemoglobin of 9.1, platelet count of 241, INR 1.2, CO2 31, the rest of the electrolytes were unremarkable, troponin is negative 3, proBNP of 1200, urinalysis showed evidence of urinary tract infection. Patient was started on antibiotics, nebulized bronchodilators, and IV Lasix. Consult was initiated. Patient was also placed on BiPAP support. She is currently transitioning to nasal cannula, currently at 5 L, still dyspneic, but does not appear to be in any acute distress. She is starting to diurese, she is awake and alert, she is oriented 2, person and place, however her daughter was at the bedside state th at patient definite seems to be confused and is not at her baseline. She is quite restless, she keeps asking to be able to get up to the bathroom, for now she is easily redirected. Started on Rocephin for empiric antibiotic coverage. Review of Systems Neurological: Reports balance difficulties, Reports confusion, Reports gait dysfunction Past Medical History Past Medical History: Cancer, Chest Pain / Angina, Heart Failure, COPD, Dementia, Diabetes Mellitus, Deep Vein Thrombosis (DVT), Eye Disorder, Hyperlipidemia, Hypertension, Osteoarthritis (OA), Pneumonia, Pulmonary Embolus (PE) Additional Past Medical History / Comment(s): Kidney cancer post-nephrectomy on the right, IDDM type II, neuropathy bilateral hands/feet, bilateral diabetic retinopathy with legal blindness in the past but vision better since eye injections, DVT of the right lower extremity, bronchitis, chronic hypercapnic respiratory failure, oxygen at 3L/NC ATC, chronic elevation of the left hemidiaphragm, obstructive sleep apnea not using device, thoracolumbar kyphoscoliosis, arthritis in several joints, edema, insomnia, anemia, UTIs and current UTI being tx with antibiotic, occasional incontinence, chronic rhinitis, constipation History of Any Multi-Drug Resistant Organisms: None Reported Past Surgical History: Appendectomy, Back Surgery, Hernia Repair, Joint Replacement, Tubal Ligation Additional Past Surgical History / Comment(s): Low back surgery, total R shoulder, R nephrectomy, several abdominal hernia surgeries, colonoscopy Past Anesthesia/Blood Transfusion Reactions: No Reported Reaction Additional Past Anesthesia/Blood Transfusion Reaction / Comment(s): Pt has rece ived blood in past without reaction. Smoking Status: Never smoker - Past Family History Mother Family Medical History: Cancer Father Family Medical History: Unable to Obtain Additional Family Medical History / Comment(s): Father when pt was 1 yrs old. Medications and Allergies Home Medications Medication Instructions Recorded Confirmed Type Atorvastatin [Lipitor] 20 mg PO HS@209903/28/21 03/11/22 History Furosemide [Lasix] 40 mg PO DAILY@89903/28/21 03/11/22 History Acetaminophen Tab [Tylenol] 650 mg PO Q4H PRN 06/25/21 03/11/22 History Cetirizine HCl 10 mg PO HS@209906/25/21 03/11/22 History Rivaroxaban [Xarelto] 20 mg PO DAILY@89906/25/21 03/11/22 History metFORMIN HCL [Glucophage] 1,000 mg PO BID@06/25/21 03/11/22 History Mag Hydrox/Aluminum Hyd/Simeth 10 ml PO Q4H PRN 08/05/21 03/11/22 History [Mylanta Maximum Strength Liq] Melatonin 3 mg PO HS@209908/05/21 03/11/22 History Psyllium Husk 100% [Metamucil 6 gm PO DAILY@89908/05/21 03/11/22 History Packet] Semaglutide [Ozempic] 0.25 mg SQ TU 08/05/21 03/11/22 History Albuterol Inhaler [Ventolin Hfa 1 puff INHALATION RT-QID PRN #8 gm 08/06/21 03/11/22 Rx Inhaler] Insulin Lispro [humaLOG Kwikpen] See Protocol SQ AC-TID 11/03/21 03/11/22 History Nitroglycerin Sl Tabs [Nitrostat] 0.4 mg SL Q5M PRN 11/03/21 03/11/22 History Sertraline [Zoloft] 25 mg PO HS@209911/03/21 03/11/22 History Albuterol Nebulized [Ventolin 2.5 mg INHALATION RT-Q6H PRN 03/11/22 03/11/22 History Nebulized] Aspirin 81 mg PO DAILY@89903/11/22 03/11/22 History Budesonide-Formot 160-4.5 Mcg 2 puff INHALATION RT-BID@899,209903/11/22 03/11/22 History [Symbicort 160-4.5 Mcg Inhaler] Cefuroxime [Ceftin] 250 mg PO BID@899,209903/11/22 03/11/22 History Cefuroxime [Ceftin] 250 mg PO ONCE 03/11/22 03/11/22 History Docusate [Colace] 100 mg PO BID PRN 03/11/22 03/11/22 History Ferrous Sulfate [Feosol] 325 mg PO BID@899,209903/11/22 03/11/22 History Insulin Glargine,Hum.rec.anlog 15 unit SQ DAILY@89903/11/22 03/11/22 History [Lantus Solostar Pen] Lactulose 10 gm PO BID PRN 03/11/22 03/11/22 History Menthol [Biofreeze] 1 applic TOPICAL Q6H PRN 03/11/22 03/11/22 History guaiFENesin [guaiFENesin Oral 100 mg PO Q4H PRN 03/11/22 03/11/22 History Solution] Allergies Allergy/AdvReac Type Severity Reaction Status Date / Time rofecoxib [From Vioxx] AdvReac Confusion Verified 03/11/22 06:54 Physical Exam Vitals: Vital Signs Temp Pulse Pulse Resp BP BP Pulse Ox 03/11/22 11:49 103 H 03/11/22 11:36 104 H 03/11/22 11:35 97.8 F 102 H 18 159/93 100 03/11/22 07:45 112 H 03/11/22 07:41 108 H 03/11/22 07:30 92 L 03/11/22 07:26 113 H 03/11/22 05:51 102 H 32 H 143/60 94 L 03/11/22 05:32 109 H 03/11/22 05:17 111 H 03/11/22 04:55 102 H 32 H 155/86 94 L 03/11/22 03:56 105 H 20 156/68 96 03/11/22 03:00 105 H 20 135/73 96 03/11/22 02:21 101 H 24 135/82 94 L 03/11/22 00:17 101 H 03/11/22 00:06 100 03/10/22 23:12 100 24 94 L 03/10/22 22:49 98.9 F 105 H 18 152/70 94 L Intake and Output 03/10/22 03/11/22 03/11/22 22:59 06:59 14:59 Other: Voiding Method External Catheter Weight 90.718 kg 90.718 kg GENERAL EXAM: Alert, very pleasant, 77-year-old -[place] female on 5 L of oxygen, laying flat in bed, mildly dyspneic, but denies any acute distress currently off BiPAP support comfortable in no apparent distress. HEAD: Normocephalic/atraumatic. EYES: Normal reaction of pupils, equal size. Conjunctiva pink, sclera white. NOSE: Clear with pink turbinates. THROAT: No erythema or exudates. NECK: No masses, no JVD, no thyroid enlargement, no adenopathy. CHEST: No chest wall deformity. Symmetrical expansion. LUNGS: Equal air entry with diminished sounds at the bases CVS: Regular rate and rhythm, normal S1 and S2, no gallops, no murmurs, no rubs ABDOMEN: Soft, nontender. No hepatosplenomegaly, normal bowel sounds, no guarding or rigidity. EXTREMITIES: No clubbing, no edema, no cyanosis, 2+ pulses and upper and lower extremities. MUSCULOSKELETAL: Muscle strength and tone normal. SPINE: No scoliosis or deformity SKIN: No rashes CENTRAL NERVOUS SYSTEM: Alert and oriented -3. No focal deficits, tone is normal in all 4 extremities. PSYCHIATRIC: Alert and oriented -3. Appropriate affect. Intact judgment and insight. Results - Laboratory Findings CBC and BMP: 03/12/22 09:30 03/12/22 09:30 PT/INR, D-dimer PT 12.6 sec (9.0-12.0) H 03/11/22 03:55 INR 1.2 (<1.2) H 03/11/22 03:55 Abnormal lab findings: Abnormal Labs 03/11/22 03/11/22 03/11/22 01:06 03:55 03:55 RBC 3.32 L Hgb 9.1 L Hct 30.1 L MCHC 30.3 L RDW 15.6 H Eosinophils # 0.8 H PT 12.6 H INR 1.2 H VBG pCO2 Sodium Carbon Dioxide BUN Glucose POC Glucose (mg/dL) Magnesium Urine Appearance Cloudy H Urine Blood Trace H Ur Leukocyte Esterase Large H Urine WBC >182 H Urine WBC Clumps Many H Urine Bacteria Few H Hyaline Casts 62 H Urine Mucus Rare H 03/11/22 03/11/22 03/11/22 03:55 08:35 11:42 RBC Hgb Hct MCHC RDW Eosinophils # PT INR VBG pCO2 53 H Sodium 135 L Carbon Dioxide 31 H BUN 32 H Glucose 107 H POC Glucose (mg/dL) 225 H Magnesium 1.3 L Urine Appearance Urine Blood Ur Leukocyte Esterase Urine WBC Urine WBC Clumps Urine Bacteria Hyaline Casts Urine Mucus - Diagnostic Findings Chest x-ray: report reviewed, image reviewed Assessment and Plan Plan: Assessment: Acute on chronic hypoxic respiratory failure related to sepsis related to UTI. Chest x-ray showed chronic left hemidiaphragm elevation with atelectasis, no heart failure, no acute pulmonary process Chronic hypercapnic respiratory failure related to history of obstructive sleep apnea patient is currently not on CPAP on a regular basis just oxygen at 3 L at the [facility] History of PE and DVT on Xarelto History of diabetes mellitus with diabetic retinopathy Chronic elevation of the left hemidiaphragm History of congestive heart failure with diastolic dysfunction Lifetime nonsmoker, patient denies history of COPD Hypertension Hyperlipidemia History of hypernephroma, status post right nephrectomy Kyphoscoliosis of the spine Gait dysfunction patient walks with a walker at the [facility] Plan: Currently patient is on high flow nasal cannula at 5 L Mildly dyspneic, but no distress noted Patient can be transitioned to her home dose oral Lasix 40 mg starting tomorrow We'll stop IV Solu-Medrol and placed patient on oral prednisone Would refrain from given additional diuretics We will add Haldol 2 mg IV every 4 hours for agitation, confusion, restlessness Probably need a safety deposit boxes custodian at the bedside Maintain safety precautions Continue inhaled bronchodilators Follow-up labs electrolytes and renal profile tomorrow Continue to follow I have personally seen and examined the patient, performed the documentation and the assessment and plan as written. Number of minutes spent on the visit: [15] I have personally seen and examined the patient and reviewed the documentation. I performed a joint evaluation with the nurse practitioner in this evaluation was done more than 30 minutes. I fully agree with the documentation above and the plan of care. I evaluated this patient. The patient had an acute/on top of chronic hypoxic respiratory Respiratory failure probably rates to the underlying UTI. She has chronic restrictive lung disease which a combination of obesity, for a lumbar kyphoscoliosis, and chronic elevation of left hemidiaphragm, possibly diaphragmatic paralysis. Anticipate her condition improved once the underlying UTI is treated. Continue IV Rocephin for now. BiPAP overnight. Haldol for any agitation or delirium. Time with Patient: Greater than 30
[2022-03-11] MEDS ORDERED: HALOPERIDOL LACTATE 5 MG/ML 1 ML VIAL IVP PRN (15:34)
[2022-03-11 16:36] LABS: Glucose,Whole Blood 279 mg/dL (75-99)
[2022-03-11] MEDS: INSULIN ASPART (NovoLOG) 100 UNIT/ML VIAL SQ SCH ×2 (16:49→20:20)
[2022-03-11 20:07] LABS: Glucose,Whole Blood 237 mg/dL (75-99)
[2022-03-11] MEDS: SERTRALINE 25 MG TAB PO SCH (20:20)
[2022-03-11] MEDS: ATORVASTATIN 20 MG TAB PO SCH (20:20)
[2022-03-11] MEDS: SYMBICORT 160-4.5 MCG INHALER INHALATION SCH (20:23)
[2022-03-11] MEDS ORDERED: ALBUTEROL NEBULIZED 2.5 MG/3 ML INHALATION PRN (22:11)
[2022-03-12] MEDS: QUEtiapine 25 MG TAB PO PRN (02:11)
[2022-03-12 05:59] LABS: Glucose,Whole Blood 140 mg/dL (75-99)
[2022-03-12] MEDS: INSULIN ASPART (NovoLOG) 100 UNIT/ML VIAL SQ SCH ×4 (06:47→22:32)
[2022-03-12] MEDS: ALBUTEROL NEBULIZED 2.5 MG/3 ML INHALATION SCH ×4 (08:54→20:15)
[2022-03-12] MEDS: RIVAROXABAN 20 MG TAB PO SCH (09:54)
[2022-03-12] MEDS: ASPIRIN 81 MG PO SCH (09:54)
[2022-03-12] MEDS: FUROSEMIDE 40 MG TAB PO SCH (09:54)
[2022-03-12] MEDS: INSULIN DETEMIR (LEVEMIR) 100 UNIT/ML SYR SQ SCH (09:54)
[2022-03-12 10:20] LABS: Basophils % (A) 0 %; Eosinophils % (A) 0 %; HCT 29.2 % (34.0-46.0); HGB 8.5 gm/dL (11.4-16.0); Hypochromasia Marked; Lymphocytes % (A) 13 %; MCH 26.9 pg (25.0-35.0); MCHC 29.1 g/dL (31.0-37.0); MCV 92.4 fL (80.0-100.0); Mean Platelet Volume 7.3; Monocytes # (A) 0.6 k/uL (0-1.0); Monocytes % (A) 8 %; Neutrophils # (A) 5.8 k/uL (1.3-7.7); Neutrophils % (A) 76 %; Platelet Count 215 k/uL (150-450); RBC 3.16 m/uL (3.80-5.40); RDW 15.4 % (11.5-15.5); WBC 7.7 k/uL (3.8-10.6)
[2022-03-12 10:37] LABS: Albumin 3.1 g/dL (3.5-5.0); Calcium 8.8 mg/dL (8.4-10.2); Magnesium 1.7 mg/dL (1.6-2.3); Phosphorus 3.1 mg/dL (2.5-4.5); Potassium 4.2 mmol/L (3.5-5.1); Total Bilirubin 0.6 mg/dL (0.2-1.3); Total Protein 6.6 g/dL (6.3-8.2)
--- NOTE | 2022-03-12 11:17 | P.PN ---
Subjective Progress Note Date: 03/12/22 On 03/12/2017, the patient is awake and alert. Overnight, the patient spent on a BiPAP at a pressure of 12/5 cm of water and FiO2 of 40%. She is doing well for now pH is hemodynamically stable. She was taken off the BiPAP and she was placed on oxygen by nasal cannula. She is afebrile. Urine cultures still pending. The patient remains on IV Zosyn. No agitation. She has a balloon catheter in her right IJ. She is on Levemir insulin 15 units daily along with a sinus Coverage. She was slightly delirious and she was given Haldol to be given on an as-needed basis. The labs from today shows a white cell count of 7.7 with a hemoglobin of 8.5, BUN is at 26 with a creatinine of 1.08 and the sodium level of 138. Objective - Vital Signs Vital signs: Vital Signs Temp 98.3 F 03/12/22 08:24 Pulse 100 03/12/22 09:07 Resp 18 03/12/22 08:24 BP 124/67 03/12/22 08:24 Pulse Ox 94 L 03/12/22 08:24 Intake & Output 03/11/22 03/12/22 03/12/22 18:59 06:59 18:59 Intake Total 240 Output Total 1450 1500 Balance -1210 -1500 Weight 90.718 kg Intake: Oral 240 Output: Urine 1450 1500 Other: Voiding Method External Catheter Indwelling Catheter Indwelling Catheter - Exam GENERAL EXAM: Alert, very pleasant, 77-year-old -Russian female on 5 L of oxygen, laying flat in bed, mildly dyspneic, but denies any acute distress currently off BiPAP support comfortable in no apparent distress. HEAD: Normocephalic/atraumatic. EYES: Normal reaction of pupils, equal size. Conjunctiva pink, sclera white. NOSE: Clear with pink turbinates. THROAT: No erythema or exudates. NECK: No masses, no JVD, no thyroid enlargement, no adenopathy. CHEST: No chest wall deformity. Symmetrical expansion. LUNGS: Equal air entry with diminished sounds at the bases CVS: Regular rate and rhythm, normal S1 and S2, no gallops, no murmurs, no rubs ABDOMEN: Soft, nontender. No hepatosplenomegaly, normal bowel sounds, no guarding or rigidity. EXTREMITIES: No clubbing, no edema, no cyanosis, 2+ pulses and upper and lower extremities. MUSCULOSKELETAL: Muscle strength and tone normal. SPINE: No scoliosis or deformity SKIN: No rashes CENTRAL NERVOUS SYSTEM: Alert and oriented -3. No focal deficits, tone is normal in all 4 extremities. PSYCHIATRIC: Alert and oriented -3. Appropriate affect. Intact judgment and insight. - Labs CBC & Chem 7: 03/12/22 09:30 03/12/22 09:30 Labs: Abnormal Lab Results - Last 24 Hours (Table) 03/11/22 03/11/22 03/11/22 Range/Units 11:42 16:34 20:04 RBC (3.80-5.40) m/uL Hgb (11.4-16.0) gm/dL Hct (34.0-46.0) % MCHC (31.0-37.0) g/dL Carbon Dioxide (22-30) mmol/L BUN (7-17) mg/dL Creatinine (0.52-1.04) mg/dL POC Glucose (mg/dL) 225 H 279 H 237 H (75-99) mg/dL Albumin (3.5-5.0) g/dL 03/12/22 03/12/22 03/12/22 Range/Units 05:56 09:30 09:30 RBC 3.16 L (3.80-5.40) m/uL Hgb 8.5 L (11.4-16.0) gm/dL Hct 29.2 L (34.0-46.0) % MCHC 29.1 L (31.0-37.0) g/dL Carbon Dioxide 37 H (22-30) mmol/L BUN 26 H (7-17) mg/dL Creatinine 1.08 H (0.52-1.04) mg/dL POC Glucose (mg/dL) 140 H (75-99) mg/dL Albumin 3.1 L (3.5-5.0) g/dL Microbiology - Last 24 Hours (Table) 03/11/22 01:06 Urine Culture - Final Urine,Voided Aerococcus urinae Assessment and Plan Plan: Acute on chronic hypoxic respiratory failure related to sepsis related to UTI. Chest x-ray showed chronic left hemidiaphragm elevation with atelectasis, no heart failure, no acute pulmonary process, final urine culture is still pending for now. Meanwhile, the patient spent the night on a BiPAP and currently she is back on 5 L O2 nasal cannula Chronic hypercapnic respiratory failure related to history of obstructive sleep apnea patient is currently not on CPAP on a regular basis just oxygen at 53 L at the [facility] History of PE and DVT on Xarelto History of diabetes mellitus with diabetic retinopathy Chronic elevation of the left hemidiaphragm History of congestive heart failure with diastolic dysfunction Lifetime nonsmoker, patient denies history of COPD Hypertension Hyperlipidemia History of hypernephroma, status post right nephrectomy Kyphoscoliosis of the spine Gait dysfunction patient walks with a walker at the [facility] Plan Continue IV Rocephin Awaiting final urine cultures BiPAP overnight Currently transitioned to 5 L of nasal cannula Continue Lasix Haldol as needed for delirium We'll follow
[2022-03-12 11:36] LABS: Glucose,Whole Blood 210 mg/dL (75-99)
[2022-03-12] MEDS: SYMBICORT 160-4.5 MCG INHALER INHALATION SCH ×2 (12:27→20:15)
[2022-03-12 14:13] VITALS: BMI 37.8
[2022-03-12 16:42] LABS: Glucose,Whole Blood 214 mg/dL (75-99)
[2022-03-12 21:29] LABS: Glucose,Whole Blood 280 mg/dL (75-99)
[2022-03-12] MEDS: ATORVASTATIN 20 MG TAB PO SCH (22:32)
--- NOTE | 2022-03-12 22:56 | P.PN ---
Subjective Progress Note Date: 03/12/22 Patient is a 77-year-old female with a known history of hypertension, hyperlipidemia, osteoarthritis, history of PE/DVT on anticoagulation with Xarelto, history of right nephrectomy due to renal renalcancer, diabetes type 2 insulin-dependent, bilateral diabetic peripheral neuropretinopathy with legal blid chronic , chronic hypercapnic respiratory failure on oxygen at 3 L via nasal cannula, obstructive sleep apnea, kyphoscoliosis and other multiple medical problems, medical debility and bedridden currently at alf was sent to hospital due to cough congestion and shortness of breath. Shortness of breath has been increasing for the past few days. Patient denied any complaints of chest pain. Patient does have chronic leg swelling. No fever no chills. No recent illnesses. Patient does have chronically elevated left hemidiaphragm. Chest x-ray showed there is chronic atelectasis in the left lung base without change. Mild pulmonary fibrosis. EKG showed sinus tachycardia. Patient was tachycardic on admission and this morning her breathing status worsened and was placed on BiPAP. ABGs were ordered. Lab data showed WBC 8.4 hemoglobin 9.1 and platelets 241 sodium 135 potassium 4.4 chloride 98 bicarb is 31 BUN 32 and creatinine 0.97 magnesium 1.3 Troponin x2 negative proBNP of 1200 and urinalysis showed cloudy with trace blood large leukocyte esterase and elevated WBCs. 2D echocardiogram done in May 2021 showed ejection fraction 50 to 55%. LA is mildly dilated. Mild aortic stenosis. Severe mitral annular calcification and mild MR. Moderate to severe TR and severe pulmonary hypertension. Right ventricular systolic pressure 83.37 03/12/2022 Patient is currently in the thermic care unit. She is awake alert and oriented today. Did use BiPAP last night. Currently on oxygen at 5 L via nasal cannula. Overnight patient was delirious and was given a dose of Haldol and was also started on Seroquel. Laboratory data showed WBC 7.7 hemoglobin 8.5 platelets 250. Sodium 138 potassium 4.2 chloride 98 bicarb is 37 BUN 26 and creatinine 1.08 and blood sugar is 99 this morning. Urine culture showed Aerococcus species. Current medications reviewed. Objective - Vital Signs Vital signs: Vital Signs Temp 98.3 F 03/12/22 08:24 Pulse 100 03/12/22 09:07 Resp 18 03/12/22 08:24 BP 124/67 03/12/22 08:24 Pulse Ox 94 L 03/12/22 08:24 Intake & Output 03/11/22 03/12/22 03/12/22 18:59 06:59 18:59 Intake Total 240 Output Total 1450 1500 Balance -1210 -1500 Weight 90.718 kg Intake: Oral 240 Output: Urine 1450 1500 Other: Voiding Method External Catheter Indwelling Catheter Indwelling Catheter - Exam PHYSICAL EXAMINATION: Patient is lying in the bed comfortably, no acute distress, awake alert and oriented.. HEENT: Normocephalic. Neck is supple. Pupils reactive. Nostrils clear. Oral cavi ty is moist. Neck reveals no JVD, carotid bruits, or thyromegaly. CHEST EXAMINATION: Trachea is central. Symmetrical expansion. Bibasilar diminished sounds in scattered crackles. Nonlabored breathing. CARDIAC: Normal S1, S2 with no gallops. No murmurs ABDOMEN: Soft. Bowel sounds normal. No organomegaly. No abdominal bruits. Extremities: reveal no edema. No clubbing or cyanosis Neurologically awake, alert, oriented x2-3 with well-coordinated movements. No gross focal deficits noted Skin: No rash or skin lesions. Psychiatric: Cooperative. Could not be assessed completely. Musculoskeletal: No joint swelling or deformity. - Labs CBC & Chem 7: 03/12/22 09:30 03/12/22 09:30 Labs: Abnormal Lab Results - Last 24 Hours (Table) 03/11/22 03/11/22 03/11/22 Range/Units 11:42 16:34 20:04 RBC (3.80-5.40) m/uL Hgb (11.4-16.0) gm/dL Hct (34.0-46.0) % MCHC (31.0-37.0) g/dL Carbon Dioxide (22-30) mmol/L BUN (7-17) mg/dL Creatinine (0.52-1.04) mg/dL POC Glucose (mg/dL) 225 H 279 H 237 H (75-99) mg/dL Albumin (3.5-5.0) g/dL 03/12/22 03/12/22 03/12/22 Range/Units 05:56 09:30 09:30 RBC 3.16 L (3.80-5.40) m/uL Hgb 8.5 L (11.4-16.0) gm/dL Hct 29.2 L (34.0-46.0) % MCHC 29.1 L (31.0-37.0) g/dL Carbon Dioxide 37 H (22-30) mmol/L BUN 26 H (7-17) mg/dL Creatinine 1.08 H (0.52-1.04) mg/dL POC Glucose (mg/dL) 140 H (75-99) mg/dL Albumin 3.1 L (3.5-5.0) g/dL Microbiology - Last 24 Hours (Table) 03/11/22 01:06 Urine Culture - Final Urine,Voided Aerococcus urinae Assessment and Plan Assessment: Acute on chronic hypoxic and hypercapnic respiratory failure requiring BiPAP. Multifactorial due to COPD and urinary tract infection. Acute COPD exacerbation with mild pulmonary fibrosis. 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 Acute urinary tract infection chronic CHF with preserved EF Hypomagnesia, replaced Chronic hypoxic and hypercapnic respiratory failure on 3 L oxygen via nasal cannula Chronic left hemidiaphragm elevation History of DVT/PE on Xarelto Diabetes type 2 insulin-dependent Hypertension Hyperlipidemia Diabetic peripheral neuropathy Diabetic retinopathy with legal blindness History of right nephrectomy Obstructive sleep apnea not using CPAP Thoracolumbar kyphoscoliosis Medical debility and bedridden currently at alf DVT prophylaxis patient is already on Xarelto Obesity BMI 37.8 CODE STATUS DNR/DNI Plan: Patient was continued on BiPAP overnight. Currently titrated down to 5 L oxygen via nasal cannula. Continue with duo nebs. Solu-Medrol has been discontinued. IV Lasix is also on hold. Pulmonary is on board. Patient is continued on Levemir and insulin sliding scaleand adjust dose as needed. Patient was on ceftriaxone. Changed to Levaquin. Urine culture showed Aerococcus species. Follow-up sensitivity report. Prognosis is guarded. . Time with Patient: Greater than 30
[2022-03-12] MEDS: SERTRALINE 25 MG TAB PO SCH (23:30)
[2022-03-13 07:06] LABS: African American GFR (CKD) 54 (>60 ml/min/1.73 sqM); Anion Gap 8 mmol/L; Blood Urea Nitrogen 35 mg/dL (7-17); Calcium 8.7 mg/dL (8.4-10.2); Carbon Dioxide 30 mmol/L (22-30); Chloride 99 mmol/L (98-107); Glucose 78 mg/dL (74-99); Non-African American GFR(CKD) 46 (>60 ml/min/1.73 sqM); Potassium 4.6 mmol/L (3.5-5.1); Sodium 137 mmol/L (137-145)
[2022-03-13 07:47] LABS: Glucose,Whole Blood 108 mg/dL (75-99)
[2022-03-13] MEDS: INSULIN DETEMIR (LEVEMIR) 100 UNIT/ML SYR SQ SCH (08:17)
[2022-03-13] MEDS: INSULIN ASPART (NovoLOG) 100 UNIT/ML VIAL SQ SCH ×4 (08:23→23:17)
[2022-03-13] MEDS: FUROSEMIDE 40 MG TAB PO SCH (08:23)
[2022-03-13] MEDS: ASPIRIN 81 MG PO SCH (08:23)
[2022-03-13] MEDS: ALBUTEROL NEBULIZED 2.5 MG/3 ML INHALATION SCH ×4 (08:25→19:46)
[2022-03-13] MEDS: SYMBICORT 160-4.5 MCG INHALER INHALATION SCH ×2 (08:25→19:46)
[2022-03-13] MEDS: RIVAROXABAN 20 MG TAB PO SCH (08:47)
[2022-03-13] MEDS ORDERED: LEVOFLOXACIN 750 MG TAB PO SCH (09:00)
[2022-03-13 09:11] LABS: Basophils # (A) 0.06 X 10*3/uL (0.00-0.10); Basophils % (A) 0.6 %; Eosinophils # (A) 0.34 X 10*3/uL (0.04-0.35); Eosinophils % (A) 3.3 %; HCT 30.5 % (37.2-46.3); HGB 8.6 g/dL (12.0-15.0); Immature Grans, Automated 0.3 %; Lymphocytes # (A) 2.32 X 10*3/uL (0.90-5.00); Lymphocytes % (A) 22.8 %; MCH 26.4 pg (27.0-32.0); MCHC 28.2 g/dL (32.0-37.0); MCV 93.6 fL (80.0-97.0); Mean Platelet Volume 9.9 fL (9.5-12.2); Monocytes # (A) 0.94 X 10*3/uL (0.20-1.00); Monocytes % (A) 9.2 %; NRBC Per 100 WBC 0 /100 WBCS (0.0-0.0); Neutrophils # (A) 6.49 X 10*3/uL (1.80-7.70); Neutrophils % (A) 63.8 %; Platelet Count 249 X 10*3/uL (140-440); RBC 3.26 X 10*6/uL (4.10-5.20); RDW 15.8 % (11.5-14.5); WBC 10.18 X 10*3/uL (4.50-10.00)
[2022-03-13 11:30] LABS: Glucose,Whole Blood 248 mg/dL (75-99)
--- NOTE | 2022-03-13 12:15 | P.PN ---
Subjective Progress Note Date: 03/13/22 03/13/2022, the patient is awake and alert. On and off she was found to be slightly confused. For the most part, the patient's is able to communicate. No agitation. 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 The patient remains on antibiotics. The patient pulled a triple lumen catheter from the neck area. At this point in time, she does not have any IV access. She has a very difficult vascular access. I opted not to put an underlying on her as long as the treatment is mainly oral and the patient will likely get transferred back to [facility] within next 24 hours. Otherwise, the patient is taking oral diuretics. She is currently on Lasix 40 mg by mouth daily. The patient is also on Symbicort as maintenance. She is on DuoNeb nebulized treatments of 5. Antibiotic coverage with Levaquin 750 mg every or every 8 hours. The blood work from today shows a white cell count of 10.0 with a hemoglobin of 8.6 and a creatinine of 1.1 with a serum bicarb of 30 and his sodium level of 137 with a potassium level of 4.6. Objective - Vital Signs Vital signs: Vital Signs Temp 98.7 F 03/13/22 08:00 Pulse 96 03/13/22 08:38 Resp 16 03/13/22 08:00 BP 117/64 03/13/22 08:00 Pulse Ox 100 03/13/22 08:00 Intake & Output 03/12/22 03/13/22 03/13/22 18:59 06:59 18:59 Intake Total 120 Output Total 750 1200 Balance -630 -1200 Weight 90.718 kg Intake: Oral 120 Output: Urine 750 1200 Other: Voiding Method Indwelling Catheter Toilet - Exam GENERAL EXAM: Alert, very pleasant, 77-year-old -Citizen Of [place] female on 5 L of oxygen, laying flat in bed, mildly dyspneic, but denies any acute distress currently off BiPAP support comfortable in no apparent distress. HEAD: Normocephalic/atraumatic. EYES: Normal reaction of pupils, equal size. Conjunctiva pink, sclera white. NOSE: Clear with pink turbinates. THROAT: No erythema or exudates. NECK: No masses, no JVD, no thyroid enlargement, no adenopathy. CHEST: No chest wall deformity. Symmetrical expansion. LUNGS: Equal air entry with diminished sounds at the bases CVS: Regular rate and rhythm, normal S1 and S2, no gallops, no murmurs, no rubs ABDOMEN: Soft, nontender. No hepatosplenomegaly, normal bowel sounds, no guarding or rigidity. EXTREMITIES: No clubbing, no edema, no cyanosis, 2+ pulses and upper and lower extremities. MUSCULOSKELETAL: Muscle strength and tone normal. SPINE: No scoliosis or deformity SKIN: No rashes CENTRAL NERVOUS SYSTEM: Alert and oriented -3. No focal deficits, tone is normal in all 4 extremities. PSYCHIATRIC: Alert and oriented -3. Appropriate affect. Intact judgment and insight. - Labs CBC & Chem 7: 03/13/22 04:55 03/13/22 04:55 Labs: Abnormal Lab Results - Last 24 Hours (Table) 03/12/22 03/12/22 03/13/22 Range/Units 16:40 21:07 04:55 WBC 10.18 H (4.50-10.00) X 10*3/uL RBC 3.26 L (4.10-5.20) X 10*6/uL Hgb 8.6 L (12.0-15.0) g/dL Hct 30.5 L (37.2-46.3) % MCH 26.4 L (27.0-32.0) pg MCHC 28.2 L (32.0-37.0) g/dL RDW 15.8 H (11.5-14.5) % BUN (7-17) mg/dL Creatinine (0.52-1.04) mg/dL POC Glucose (mg/dL) 214 H 280 H (75-99) mg/dL 03/13/22 03/13/22 03/13/22 Range/Units 04:55 07:45 11:28 WBC (4.50-10.00) X 10*3/uL RBC (4.10-5.20) X 10*6/uL Hgb (12.0-15.0) g/dL Hct (37.2-46.3) % MCH (27.0-32.0) pg MCHC (32.0-37.0) g/dL RDW (11.5-14.5) % BUN 35 H (7-17) mg/dL Creatinine 1.14 H (0.52-1.04) mg/dL POC Glucose (mg/dL) 108 H 248 H (75-99) mg/dL Microbiology - Last 24 Hours (Table) 03/11/22 01:06 Urine Culture - Final Urine,Voided Aerococcus urinae Assessment and Plan Plan: Assessment: Acute on chronic hypoxic respiratory failure related to sepsis related to UTI. 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 History of diabetes mellitus with diabetic retinopathy Chronic elevation of the left hemidiaphragm History of congestive heart failure with diastolic dysfunction Lifetime nonsmoker, patient denies history of COPD Hypertension Hyperlipidemia History of hypernephroma, status post right nephrectomy Kyphoscoliosis of the spine Gait dysfunction patient walks with a walker at the [facility] UTI secondary to Aerococcus Plan: Currently patient is on high flow nasal cannula at 4 L Continue Levaquin Continue diuretics May continue to use BiPAP overnight Blood work is stable Discharge back to the emergency room the next 24 hours
[2022-03-13 16:41] LABS: Glucose,Whole Blood 192 mg/dL (75-99)
--- NOTE | 2022-03-13 21:01 | P.PN ---
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 Shortness of breath has been increasing for the past few days. Patient denied any complaints of chest pain. Patient does have chronic leg swelling. No fever no chills. No recent illnesses. Patient does have chronically elevated left hemidiaphragm. Chest x-ray showed there is chronic atelectasis in the left lung base without change. Mild pulmonary fibrosis. EKG showed sinus tachycardia. Patient was tachycardic on admission and this morning her breathing status worsened and was placed on BiPAP. ABGs were ordered. Lab data showed WBC 8.4 hemoglobin 9.1 and platelets 241 sodium 135 potassium 4.4 chloride 98 bicarb is 31 BUN 32 and creatinine 0.97 magnesium 1.3 Troponin x2 negative proBNP of 1200 and urinalysis showed cloudy with trace blood large leukocyte esterase and elevated WBCs. 2D echocardiogram done in May 2021 showed ejection fraction 50 to 55%. LA is mildly dilated. Mild aortic stenosis. Severe mitral annular calcification and mild MR. Moderate to severe TR and severe pulmonary hypertension. Right ventricular systolic pressure 83.37 03/12/2022 Patient is currently in the thermic care unit. She is awake alert and oriented today. Did use BiPAP last night. Currently on oxygen at 5 L via nasal cannula. Overnight patient was delirious and was given a dose of Haldol and was also started on Seroquel. Laboratory data showed WBC 7.7 hemoglobin 8.5 platelets 250. Sodium 138 potassium 4.2 chloride 98 bicarb is 37 BUN 26 and creatinine 1.08 and blood sugar is 99 this morning. Urine culture showed Aerococcus species. 03/13/2022 Patient is currently lying in the bed. Awake alert and mentation is at baseline. No complaints of chest pain or shortness of breath. Breathing status is stable. Currently requiring oxygen at 4 L via nasal cannula. Patient is being continued on antibiotics in the form of ceftriaxone. Urine culture showed Aerococcus urinary. Currently on antibiotics in the form of Levaquin 750 mg every 48 hours. Laboratory data showed WBC 10.1 hemoglobin 8.6 and platelets 249 BUN 35 creatinine 1.14 and procalcitonin level is 0.07 Current medications reviewed. Objective - Vital Signs Vital signs: Vital Signs Temp 98.8 F 03/13/22 14:00 Pulse 93 03/13/22 15:22 Resp 17 03/13/22 19:50 BP 115/57 03/13/22 14:00 Pulse Ox 100 03/13/22 14:00 Intake & Output 03/13/22 03/13/22 03/14/22 06:59 18:59 06:59 Intake Total 480 Output Total 1200 600 Balance -1200 -120 Intake: Oral 480 Output: Urine 1200 600 Other: Voiding Method Toilet Bedside Commode # Voids 1 - Exam PHYSICAL EXAMINATION: Patient is lying in the bed comfortably, no acute distress, awake alert and o riented.. HEENT: Normocephalic. Neck is supple. Pupils reactive. Nostrils clear. Oral cavity is moist. Neck reveals no JVD, carotid bruits, or thyromegaly. CHEST EXAMINATION: Trachea is central. Symmetrical expansion. Bibasilar diminished sounds in scattered crackles. Nonlabored breathing. CARDIAC: Normal S1, S2 with no gallops. No murmurs ABDOMEN: Soft. Bowel sounds normal. No organomegaly. No abdominal bruits. Extremities: reveal no edema. No clubbing or cyanosis Neurologically awake, alert, oriented x2-3 with well-coordinated movements. No gross focal deficits noted Skin: No rash or skin lesions. Psychiatric: Cooperative. Could not be assessed completely. Musculoskeletal: No joint swelling or deformity. - Labs CBC & Chem 7: 03/13/22 04:55 03/13/22 04:55 Labs: Abnormal Lab Results - Last 24 Hours (Table) 03/12/22 03/13/22 03/13/22 Range/Units 21:07 04:55 04:55 WBC 10.18 H (4.50-10.00) X 10*3/uL RBC 3.26 L (4.10-5.20) X 10*6/uL Hgb 8.6 L (12.0-15.0) g/dL Hct 30.5 L (37.2-46.3) % MCH 26.4 L (27.0-32.0) pg MCHC 28.2 L (32.0-37.0) g/dL RDW 15.8 H (11.5-14.5) % BUN 35 H (7-17) mg/dL Creatinine 1.14 H (0.52-1.04) mg/dL POC Glucose (mg/dL) 280 H (75-99) mg/dL 03/13/22 03/13/22 03/13/22 Range/Units 07:45 11:28 16:39 WBC (4.50-10.00) X 10*3/uL RBC (4.10-5.20) X 10*6/uL Hgb (12.0-15.0) g/dL Hct (37.2-46.3) % MCH (27.0-32.0) pg MCHC (32.0-37.0) g/dL RDW (11.5-14.5) % BUN (7-17) mg/dL Creatinine (0.52-1.04) mg/dL POC Glucose (mg/dL) 108 H 248 H 192 H (75-99) mg/dL Assessment and Plan Assessment: Acute on chronic hypoxic and hypercapnic respiratory failure requiring BiPAP.Multifactorial due to COPD and urinary tract infection.Currently transition to 4 L oxygen via nasal cannula. Acute urinary tract infection Acute COPD exacerbation with mild pulmonary fibrosis. 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 Acute on chronic CHF with preserved EF Hypomagnesia, replaced Chronic hypoxic and hypercapnic respiratory failure on 3 L oxygen via nasal cannula Chronic left hemidiaphragm elevation History of DVT/PE on Xarelto Diabetes type 2 insulin-dependent Hypertension Hyperlipidemia Diabetic peripheral neuropathy Diabetic retinopathy with legal blindness History of right nephrectomy Obstructive sleep apnea not using CPAP Thoracolumbar kyphoscoliosis Medical debility and bedridden currently at care home DVT prophylaxis patient is already on Xarelto Obesity BMI 37.8 CODE STATUS DNR/DNI Plan: Patient was continued on BiPAP overnight. Currently titrated down to 4 L oxygen via nasal cannula. Continue with duo nebs. Solu-Medrol has been discontinued. Lasix ichnaged to PO. Pulmonary is on board. Patient is continued on Levemir and insulin sliding scaleand adjust dose as needed. Patient was on ceftriaxone. Changed to Levaquin. Urine culture showed Aerococ cus species. Follow-up sensitivity report. Prognosis is guarded. . Time with Patient: Greater than 30
[2022-03-13] MEDS: SERTRALINE 25 MG TAB PO SCH (23:16)
[2022-03-13] MEDS: ATORVASTATIN 20 MG TAB PO SCH (23:16)
[2022-03-13] MEDS: QUEtiapine 25 MG TAB PO PRN (23:16)
[2022-03-14 02:59] VITALS: RESP 18
[2022-03-14 06:55] LABS: Glucose,Whole Blood 166 mg/dL (75-99)
[2022-03-14 07:54] VITALS: BP 124/72; TEMP 97.5
[2022-03-14] MEDS: ALBUTEROL NEBULIZED 2.5 MG/3 ML INHALATION SCH ×3 (08:50→16:34)
[2022-03-14] MEDS: SYMBICORT 160-4.5 MCG INHALER INHALATION SCH (08:54)
--- NOTE | 2022-03-14 09:45 | CDI ---
Documentation Clarification Form Date: 03/14/2022 09:31:19 AM From: Tiara Burroughs CCS, CCDS Admit Date: 03/11/2022 04:36:00 AM Patient Name: Viviana Diaz Visit Number: [id number] Discharge Date: ATTENTION: The Clinical Documentation Specialists (CDI) and [facility] Coding Staff appreciate your assistance in clarifying documentation. Please respond to the clarification below the line at the bottom and electronically sign. The CDI & [facility] Coding staff will review the response and follow-up if needed. Please note: Queries are made part of the Legal Health Record. If you have any questions, please contact the author of this message via ITS. Dr. Abdirashid Lucero: Per the 03/11 Pulmonary Consult, the following is documented: Awake and alert, oriented x2, however per her daughter, she is definitely confused and is not at her baseline. Added Haldol 2 mg IV q4H for agitation, confusion, restlessness, probably needs a environmental health safety engineer at the bedside. Additional clarification regarding the type cause of the patient's confusion is requested. History/Risk Factors per the 03/11 H/P: Kidney Cancer status post Right Nephrectomy, IDDM II, Bilateral neuropathy: hands/feet, Bilateral Diabetic Retinopathy & Legal blindness in the past with improved vision status post injections, Heart Failure, COPD, Dementia, DVT Right Lower Extremity, Bronchitis, Chronic Hypercapnic Respiratory Failure on 3L nc, NIKKI, Kyphoscoliosis, OA in several joints, Insomnia and UTIs. Clinical Indicators: Presented to the ED on 03/10 from a Long-Term via EMS with Altered mental status, OSB, cough, congestion and increasing SOB. Admit with Weakness, COPD, Altered mental status, Acute exacerbation of COPD, Acute hypoxemic respiratory failure and CHF. 03/11 VS: T 98.9, P 105, R 18 - 24 (sob), BP 152/70, PO 94 3Lnc, BMI: 37.8 03/11 LAB: Hgb 9.1, Hct 30.1, Eos 0.8; PT 12.6, INR 1.2; VBG pCO2 53; Na 135, CO2 31, BUN 32, Glucose 107, Magnesium 1.3 03/11 UA: Cloudy, trace Blood, Large Esterase, WBC >182 03/10 CXR: Chronic atelectasis at the left lung base and mild pulmonary fibrosis. Treatment 03/10/29: Telemetry, O3L nc, INH Ventolin 7.5 mg x1, INH Atrovent 0.5 mg x1, IV Solumedrol 125 mg x1, IV Na Cl 1,000 mls @ 999 mls/hr q1H, INH Duoneb 3ml x1, IV Rocephin 50 mls @ 100 mls/hr x1, IV Ativan 0.5 mg q6H/prn, IV Morphine 4 mg q4H/prn, IV Haldol 1 mg q4H/prn Please clarify the following: [ x ] Metabolic Encephalopathy [ ] Septic Encephalopathy [ ] Toxic Encephalopathy [ ] Other cause of confusion, please specify: [ ] Unable to determine (Template Last Revised: January 2021) MTDD
[2022-03-14] MEDS: RIVAROXABAN 20 MG TAB PO SCH (10:21)
[2022-03-14] MEDS: FUROSEMIDE 40 MG TAB PO SCH (10:21)
[2022-03-14] MEDS: INSULIN DETEMIR (LEVEMIR) 100 UNIT/ML SYR SQ SCH (10:21)
[2022-03-14] MEDS: ASPIRIN 81 MG PO SCH (10:22)
[2022-03-14] MEDS: INSULIN ASPART (NovoLOG) 100 UNIT/ML VIAL SQ SCH ×2 (10:22→13:12)
[2022-03-14 10:50] LABS: Basophils # (A) 0.06 X 10*3/uL (0.00-0.10); Basophils % (A) 0.6 %; Eosinophils # (A) 0.77 X 10*3/uL (0.04-0.35); Eosinophils % (A) 8.2 %; HCT 31.2 % (37.2-46.3); HGB 8.8 g/dL (12.0-15.0); Immature Grans, Automated 0.4 %; Lymphocytes # (A) 2.26 X 10*3/uL (0.90-5.00); Lymphocytes % (A) 24.2 %; MCH 26.4 pg (27.0-32.0); MCHC 28.2 g/dL (32.0-37.0); MCV 93.7 fL (80.0-97.0); Mean Platelet Volume 9.8 fL (9.5-12.2); Monocytes # (A) 0.96 X 10*3/uL (0.20-1.00); Monocytes % (A) 10.3 %; NRBC Per 100 WBC 0 /100 WBCS (0.0-0.0); Neutrophils # (A) 5.25 X 10*3/uL (1.80-7.70); Neutrophils % (A) 56.3 %; Platelet Count 252 X 10*3/uL (140-440); RBC 3.33 X 10*6/uL (4.10-5.20); RDW 15.4 % (11.5-14.5); WBC 9.34 X 10*3/uL (4.50-10.00)
[2022-03-14 11:01] LABS: Glucose,Whole Blood 282 mg/dL (75-99)
[2022-03-14 11:12] LABS: African American GFR (CKD) 62.5 (60.0-200.0); Anion Gap 7.9 mmol/L (10.00-18.00); BUN/Creat Ratio 22.1 Ratio (12.00-20.00); Blood Urea Nitrogen 22.1 mg/dL (9.0-27.0); Carbon Dioxide 34.1 mmol/L (20.0-27.5); Non-African American GFR(CKD) 53.9 (60.0-200.0); Potassium 3.8 mmol/L (3.5-5.5)
[2022-03-14 12:15] VITALS: PULSE 88
--- NOTE | 2022-03-14 14:25 | P.PN ---
Subjective Progress Note Date: 03/14/22 Principal diagnosis: Shortness of breath 03/13/2022, the patient is awake and alert. On and off she was found to be slightly confused. For the most part, the patient's is able to communicate. No agitation. 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 The patient remains on antibiotics. The patient pulled a triple lumen catheter from the neck area. At this point in time, she does not have any IV access. She has a very difficult vascular access. I opted not to put an underlying on her as long as the treatment is mainly oral and the patient will likely get transferred back to [facility] within next 24 hours. Otherwise, the patient is taking oral diuretics. She is currently on Lasix 40 mg by mouth daily. The patient is also on Symbicort as maintenance. She is on DuoNeb nebulized treatments of 5. Antibiotic coverage with Levaquin 750 mg every or every 8 hours. The blood work from today shows a white cell count of 10.0 with a hemoglobin of 8.6 and a creatinine of 1.1 with a serum bicarb of 30 and his sodium level of 137 with a potassium level of 4.6. On 03/14/2022 patient seen in follow-up on medical surgical floor. Patient states she is feeling better, breathing easier, she is currently on 4 L of oxygen, her pulse ox 100%. This can probably be further weaned down. His had no fever or chills overnight, vital signs have been stable. No complaint of chest discomfort. No worsening dyspnea or congestion, patient continues on oral Lasix, this is her maintenance dose of Lasix, she continues on Symbicort, she is completing course of Levaquin for underlying urinary tract infection. Urine culture showed Aerococcus urinae. Mentation is appropriate, no confusion or agitation, she is responding appropriately. Patient was sitting up in the recliner at the time of our evaluation, breathing comfortably, she has not required BiPAP support past couple of nights. Today's labs have been reviewed, white blood cell count is 9.3, hemoglobin is 8.8, electrolytes are within normal limits, CO2 is mildly elevated this 34.1, patient does have underlying history of obstructive sleep apnea and she does not [facility] CPAP at the [facility], renal function is improved on today's labs, BUN is 22 and creatinine is 1. procal citonin level was negative at 0.07. Objective - Vital Signs Vital signs: Vital Signs Temp 97.5 F L 03/14/22 07:52 Pulse 88 03/14/22 12:15 Resp 18 03/14/22 07:52 BP 124/72 03/14/22 07:52 Pulse Ox 100 03/14/22 07:52 Intake & Output 03/13/22 03/14/22 03/14/22 18:59 06:59 18:59 Intake Total 480 Output Total 600 Balance -120 Intake: Oral 480 Output: Urine 600 Other: Voiding Method Bedside Commode # Voids 1 1 - Exam GENERAL EXAM: Alert, very pleasant, 77-year-old -[place] female, on 4 L of oxygen pulse ox 100% comfortable in no apparent distress. HEAD: Normocephalic/atraumatic. EYES: Normal reaction of pupils, equal size. Conjunctiva pink, sclera white. NOSE: Clear with pink turbinates. THROAT: No erythema or exudates. NECK: No masses, no JVD, no thyroid enlargement, no adenopathy. CHEST: No chest wall deformity. Symmetrical expansion. LUNGS: Equal air entry with no crackles, wheeze, rhonchi or dullness. CVS: Regular rate and rhythm, normal S1 and S2, no gallops, no murmurs, no rubs ABDOMEN: Soft, nontender. No hepatosplenomegaly, normal bowel sounds, no guarding or rigidity. EXTREMITIES: No clubbing, no edema, no cyanosis, 2+ pulses and upper and lower extremities. MUSCULOSKELETAL: Muscle strength and tone normal. SPINE: No scoliosis or deformity SKIN: No rashes CENTRAL NERVOUS SYSTEM: Alert and oriented -3. No focal deficits, tone is normal in all 4 extremities. PSYCHIATRIC: Alert and oriented -3. Appropriate affect. Intact judgment and insight. - Labs CBC & Chem 7: 03/14/22 06:45 03/14/22 06:45 Labs: Abnormal Lab Results - Last 24 Hours (Table) 03/13/22 03/14/22 03/14/22 Range/Units 16:39 06:45 06:45 RBC 3.33 L (4.10-5.20) X 10*6/uL Hgb 8.8 L (12.0-15.0) g/dL Hct 31.2 L (37.2-46.3) % MCH 26.4 L (27.0-32.0) pg MCHC 28.2 L (32.0-37.0) g/dL RDW 15.4 H (11.5-14.5) % Eosinophils # 0.77 H (0.04-0.35) X 10*3/uL Carbon Dioxide 34.1 H (20.0-27.5) mmol/L Anion Gap 7.90 L (10.00-18.00) mmol/L Est GFR (CKD-EPI)NonAf 53.9 L (60.0-200.0) BUN/Creatinine Ratio 22.10 H (12.00-20.00) Ratio Glucose 155 H (70-110) mg/dL POC Glucose (mg/dL) 192 H (75-99) mg/dL 03/14/22 03/14/22 Range/Units 06:54 11:00 RBC (4.10-5.20) X 10*6/uL Hgb (12.0-15.0) g/dL Hct (37.2-46.3) % MCH (27.0-32.0) pg MCHC (32.0-37.0) g/dL RDW (11.5-14.5) % Eosinophils # (0.04-0.35) X 10*3/uL Carbon Dioxide (20.0-27.5) mmol/L Anion Gap (10.00-18.00) mmol/L Est GFR (CKD-EPI)NonAf (60.0-200.0) BUN/Creatinine Ratio (12.00-20.00) Ratio Glucose (70-110) mg/dL POC Glucose (mg/dL) 166 H 282 H (75-99) mg/dL Assessment and Plan Plan: Assessment: #1. Acute on chronic hypoxic respiratory failure related to sepsis related to UTI. Chest x-ray showed chronic left hemidiaphragm elevation with atelectasis, no heart failure, no acute pulmonary process #2. Chronic hypercapnic respiratory failure related to history of obstructive sleep apnea patient is currently not on CPAP on a regular basis just oxygen at 3 L at the [facility] #3. 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 History of diabetes mellitus with diabetic retinopathy #5. Chronic elevation of the left hemidiaphragm #6. History of congestive heart failure with diastolic dysfunction #7. Lifetime nonsmoker, patient denies history of COPD #8. Hypertension #9. Hyperlipidemia #10. History of hypernephroma, status post right nephrectomy #11. Kyphoscoliosis of the spine #12. Gait dysfunction patient walks with a walker at the [facility] Plan: Continue current antibiotics Continue home dose diuretics, Weaning FiO2 Discontinue BiPAP Increase activity as tolerated Stable for discharge back to the ECF today if cleared by medicine I have personally seen and examined the patient, performed the documentation and the assessment and plan as written. Number of minutes spent on the visit: [15] Time with Patient: Less than 30
--- NOTE | 2022-03-14 14:32 | P.DS ---
Providers Date of admission: 03/11/22 04:36 Expected date of discharge: 03/14/22 Attending physician: Han Viveros Consults: 03/11/22 10:43 Consult Physician Routine Consulting Provider: Abdirashid Lucero Consult Reason/Comments: Acute on chronic hypoxic respiratory failure Do you want consulting provider notified?: Yes Primary care physician: Caleb Tsang Hospital Course: Final diagnosis Acute on chronic hypoxic and hypercapnic respiratory failure requiring BiPAP.Multifactorial due to COPD and urinary tract infection.Currently transition to 4 L oxygen via nasal cannula. Acute urinary tract infection, present on admission Acute COPD exacerbation with mild pulmonary fibrosis. 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 Patient will follow-up with Dr. Tsang in the outpatient setting upon discharge. Patient is to continue on oral Levaquin 750 mg every 48 hours for the next 5 doses and then may discontinue. Total time taken is greater than 35 minutes. Hospital course This is a 77-year-old female who was recently admitted for increasing shortness of breath along with cough and congestion that had been progressively getting worse over the last few days. Patient initially was placed on BiPAP and improved and currently maintained on 3-4 L via nasal cannula. Also for possible acute urinary tract infection, present on admission and urine cultures finalized showing Aerococcus urinae. Patient was seen and evaluated by cardiology along with pulmonary and will continue on oral Levaquin every 48 hours for 5 doses and then may discontinue. Patient with some increased agitation at night and started on Seroquel and will continue to use as needed. Patient will continue with current Lasix dose and will follow-up with cardiology in the outpatient setting. Currently no reports of chest pain, shortness of breath, or palpitations. Patient is afebrile. No reports of nausea or vomiting and patient is tolerating diet. Patient will be going to [facility] on the [facility] today. Guarded prognosis. Physical exam: Gen: This is a 77-year-old female awake, alert and oriented 2, well-developed, well-nourished. Lethargic though easily arousable. Maintained on 4 L via nasal cannula HEENT: Head is atraumatic, normocephalic. Pupils equal, round. Sclerae is anicteric. NECK: Supple. No JVD. No lymphadenopathy. No thyromegaly. LUNGS: Diminished breath sounds bilaterally with some scattered rhonchi noted. No intercostal retractions. HEART: Regular rate and rhythm. No murmur. ABDOMEN: Soft. Bowel sounds are present. No masses. No tenderness. EXTREMITIES: No pedal edema. No calf tenderness. NEUROLOGICAL: Patient is awake, alert and oriented x2-3. Diffusely weak Please refer to medication reconciliation sheet for a list of medications. Patient Condition at Discharge: Fair Plan - Discharge Summary Discharge Rx Participant: No New Discharge Prescriptions: New Levofloxacin [Levaquin] 750 mg PO Q48H 5 Days #5 tab QUEtiapine [SEROquel] 25 mg PO DAILY PRN tab PRN Reason: Agitation Or Acute Psychosis Albuterol Nebulized [Ventolin Nebulized] 2.5 mg INHALATION RT-QID ml Continue Acetaminophen Tab [Tylenol] 650 mg PO Q4H PRN PRN Reason: Pain metFORMIN HCL [Glucophage] 1,000 mg PO BID@0900,2100 Rivaroxaban [Xarelto] 20 mg PO DAILY@0900 Mag Hydrox/Aluminum Hyd/Simeth [Mylanta Maximum Strength Liq] 10 ml PO Q4H PRN PRN Reason: gerd Melatonin 3 mg PO HS@2100 Albuterol Inhaler [Ventolin Hfa Inhaler] 1 puff INHALATION RT-QID PRN #8 gm PRN Reason: Bronchospasm Albuterol Nebulized [Ventolin Nebulized] 2.5 mg INHALATION RT-Q6H PRN PRN Reason: Shortness Of Breath Aspirin 81 mg PO DAILY@0900 Menthol [Biofreeze] 1 applic TOPICAL Q6H PRN PRN Reason: Pain Furosemide [Lasix] 40 mg PO DAILY@0900 Atorvastatin [Lipitor] 20 mg PO HS@2100 Cetirizine HCl 10 mg PO HS@2100 Psyllium Husk 100% [Metamucil Packet] 6 gm PO DAILY@899 Semaglutide [Ozempic] 0.25 mg SQ TU Sertraline [Zoloft] 25 mg PO HS@2099 Nitroglycerin Sl Tabs [Nitrostat] 0.4 mg SL Q5M PRN PRN Reason: Chest Pain Insulin Lispro [humaLOG Kwikpen] See Protocol SQ AC-TID Budesonide-Formot 160-4.5 Mcg [Symbicort 160-4.5 Mcg Inhaler] 2 puff INHALATION RT-BID@899,2099 Docusate [Colace] 100 mg PO BID PRN PRN Reason: Constipation Ferrous Sulfate [Iron (65 MG Elemental)] 325 mg PO BID@899,2099 guaiFENesin [guaiFENesin Oral Solution] 100 mg PO Q4H PRN PRN Reason: Cough Insulin Glargine,Hum.rec.anlog [Lantus Solostar Pen] 15 unit SQ DAILY@899 Lactulose 10 gm PO BID PRN PRN Reason: Constipation Discontinued Cefuroxime [Ceftin] 250 mg PO BID@899,2099 Cefuroxime [Ceftin] 250 mg PO ONCE Discharge Medication List Atorvastatin [Lipitor] 20 mg PO HS@209903/28/21 [History] Furosemide [Lasix] 40 mg PO DAILY@89903/28/21 [History] Acetaminophen Tab [Tylenol] 650 mg PO Q4H PRN 06/25/21 [History] Cetirizine HCl 10 mg PO HS@209906/25/21 [History] Rivaroxaban [Xarelto] 20 mg PO DAILY@89906/25/21 [History] metFORMIN HCL [Glucophage] 1,000 mg PO BID@899,209906/25/21 [History] Mag Hydrox/Aluminum Hyd/Simeth [Mylanta Maximum Strength Liq] 10 ml PO Q4H PRN 08/05/21 [History] Melatonin 3 mg PO HS@209908/05/21 [History] Psyllium Husk 100% [Metamucil Packet] 6 gm PO DAILY@89908/05/21 [History] Semaglutide [Ozempic] 0.25 mg SQ TU 08/05/21 [History] Albuterol Inhaler [Ventolin Hfa Inhaler] 1 puff INHALATION RT-QID PRN #8 gm 08/06/21 [Rx] Insulin Lispro [humaLOG Kwikpen] See Protocol SQ AC-TID 11/03/21 [History] Nitroglycerin Sl Tabs [Nitrostat] 0.4 mg SL Q5M PRN 11/03/21 [History] Sertraline [Zoloft] 25 mg PO HS@209911/03/21 [History] Albuterol Nebulized [Ventolin Nebulized] 2.5 mg INHALATION RT-Q6H PRN 03/11/22 [History] Aspirin 81 mg PO DAILY@0900 03/11/22 [History] Budesonide-Formot 160-4.5 Mcg [Symbicort 160-4.5 Mcg Inhaler] 2 puff INHALATION RT-BID@09,209903/11/22 [History] Docusate [Colace] 100 mg PO BID PRN 03/11/22 [History] Ferrous Sulfate [Iron (65 MG Elemental)] 325 mg PO BID@899,209903/11/22 [History] Insulin Glargine,Hum.rec.anlog [Lantus Solostar Pen] 15 unit SQ DAILY@0900 03/11/22 [History] Lactulose 10 gm PO BID PRN 03/11/22 [History] Menthol [Biofreeze] 1 applic TOPICAL Q6H PRN 03/11/22 [History] guaiFENesin [guaiFENesin Oral Solution] 100 mg PO Q4H PRN 03/11/22 [History] Albuterol Nebulized [Ventolin Nebulized] 2.5 mg INHALATION RT-QID ml 03/14/22 [Rx] Levofloxacin [Levaquin] 750 mg PO Q48H 5 Days #5 tab 03/14/22 [Rx] QUEtiapine [SEROquel] 25 mg PO DAILY PRN tab 03/14/22 [Rx] Follow up Appointment(s)/Referral(s): Caleb Tsang MD [Primary Care Provider] - 1-2 days Activity/Diet/Wound Care/Special Instructions: Patient is returning to [facility] on the weiner Activity as tolerated Continue consistent carb heart healthy diet Continue taking Levaquin every 48 hours for 5 doses and then may discontinue Continue with breathing inhalational treatments along with inhalers Currently maintained on 3-4 L via nasal cannula and recommend to continue Follow-up with primary care provider on discharge Discharge Disposition: TRANSFER TO SNF/ECF
[2022-03-14 16:04] LABS: Glucose,Whole Blood 211 mg/dL (75-99)
== END 2022-03-14 17:15 | DRG 871 ==
LOC: EC 22:42 → 4SSUR 03-11 04:36 → 3SCARD 03-11 10:28 → 4SSUR 03-12 18:02
PROVIDERS: ADMIT Hospitalist; ATTEND Hospitalist
PROC: 5A09357 Assistance with Respiratory Ventilation, Less than 24 Consecutive Hours, Continuous Positive Airway Pressure (ICD-10-PCS; principal; 2022-03-11)
DX: A41.9 Sepsis, unspecified organism (principal); I50.33 Acute on chronic diastolic (congestive) heart failure; J96.21 Acute and chronic respiratory failure with hypoxia; J96.22 Acute and chronic respiratory failure with hypercapnia; G93.41 Metabolic encephalopathy; J98.11 Atelectasis; J44.1 Chronic obstructive pulmonary disease with (acute) exacerbation; N39.0 Urinary tract infection, site not specified; B96.89 Other specified bacterial agents as the cause of diseases classified elsewhere; Z68.37 Body mass index [BMI] 37.0-37.9, adult; H54.8 Legal blindness, as defined in USA; J98.6 Disorders of diaphragm; E11.319 Type 2 diabetes mellitus with unspecified diabetic retinopathy without macular edema; E11.42 Type 2 diabetes mellitus with diabetic polyneuropathy; E66.9 Obesity, unspecified; E78.5 Hyperlipidemia, unspecified; E83.42 Hypomagnesemia; I11.0 Hypertensive heart disease with heart failure; F03.90 Unspecified dementia, unspecified severity, without behavioral disturbance, psychotic disturbance, mood disturbance, and anxiety; G47.33 Obstructive sleep apnea (adult) (pediatric); I08.1 Rheumatic disorders of both mitral and tricuspid valves; J84.10 Pulmonary fibrosis, unspecified; Z66 Do not resuscitate; I27.29 Other secondary pulmonary hypertension; I50.82 Biventricular heart failure; M41.9 Scoliosis, unspecified; Z79.01 Long term (current) use of anticoagulants; Z79.4 Long term (current) use of insulin; Z79.51 Long term (current) use of inhaled steroids; Z79.82 Long term (current) use of aspirin; Z79.84 Long term (current) use of oral hypoglycemic drugs; Z79.899 Other long term (current) drug therapy; Z85.528 Personal history of other malignant neoplasm of kidney; Z86.711 Personal history of pulmonary embolism; Z86.718 Personal history of other venous thrombosis and embolism; Z90.5 Acquired absence of kidney; Z88.8 Allergy status to other drugs, medicaments and biological substances
CPT/HCPCS: 36415; 36556; 71045; 80048; 80053; 81001; 82803; 83605; 83735; 83880; 84100; 84145; 84484; 85025; 85610; 85730; 87086; 93005; 94640; 94660; 96361; 96365; 96367; 96375; 96376; 99285

== ENCOUNTER 2022-04-25 11:41 | Emergency (ER) | payer MEDICARE, OTHER ==
[2022-04-25 11:54] VITALS: TEMP 98.2
[2022-04-25] MEDS ORDERED: LIDOCAINE 1% INJ 10MG/ML (5 ML VIAL-PF) SQ STA (12:18)
[2022-04-25] MEDS ORDERED: DIPH,PERTUS(ACELL)TETVAC-LF 0.5 ML VIAL IM ONE (12:38)
[2022-04-25] MEDS ORDERED: GELATIN SPONGE,ABSORB (SMALL) 1 EACH SPONGE TOPICAL STA (12:39)
--- NOTE | 2022-04-25 13:23 | ED ---
General Adult HPI - General Chief complaint: Fall Stated complaint: Fall Time Seen by Provider: 04/25/22 12:00 Source: patient, EMS, RN notes reviewed, old records reviewed Mode of arrival: EMS Limitations: no limitations - History of Present Illness Initial comments: This is a 77-year-old female since the emergency department after she states she fell out of her chair. Patient hit the ground with the right side of her head just above the eyebrow there is a small half a centimeter laceration. Patient is on Xarelto. Patient denies any headache patient denies any numbness or weakness. Patient denies any neck pain. Patient denies any other injury. Patient denies chest pain or back pain. Patient denies any shortness of breath or difficulty breathing. Patient denies any abdominal pain. - Related Data Home Medications Medication Instructions Recorded Confirmed Atorvastatin [Lipitor] 20 mg PO HS@209903/28/21 04/25/22 Furosemide [Lasix] 40 mg PO DAILY@0900 03/28/21 04/25/22 Acetaminophen Tab [Tylenol] 650 mg PO Q4H PRN 06/25/21 04/25/22 Cetirizine HCl 10 mg PO HS@209906/25/21 04/25/22 Rivaroxaban [Xarelto] 20 mg PO DAILY@89906/25/21 04/25/22 metFORMIN HCL [Glucophage] 1,000 mg PO BID@0900,209906/25/21 04/25/22 Mag Hydrox/Aluminum Hyd/Simeth 10 ml PO Q4H PRN 08/05/21 04/25/22 [Mylanta Maximum Strength Liq] Melatonin 3 mg PO HS@209908/05/21 04/25/22 Psyllium Husk 100% [Metamucil 6 gm PO DAILY@0900 08/05/21 04/25/22 Packet] Semaglutide [Ozempic] 0.25 mg SQ TU 08/05/21 04/25/22 Insulin Lispro [humaLOG Kwikpen] See Protocol SQ AC-TID 11/03/21 04/25/22 Nitroglycerin Sl Tabs [Nitrostat] 0.4 mg SL Q5M PRN 11/03/21 04/25/22 Sertraline [Zoloft] 25 mg PO HS@209911/03/21 04/25/22 Albuterol Nebulized [Ventolin 2.5 mg INHALATION RT-Q6H 03/11/22 04/25/22 Nebulized] Aspirin 81 mg PO DAILY@0900 03/11/22 04/25/22 Budesonide-Formot 160-4.5 Mcg 2 puff INHALATION RT-BID@0900,2100 03/11/22 04/25/22 [Symbicort 160-4.5 Mcg Inhaler] Docusate [Colace] 100 mg PO BID PRN 03/11/22 04/25/22 Ferrous Sulfate [Iron (65 MG 325 mg PO BID@0900,2100 03/11/22 04/25/22 Elemental)] Insulin Glargine,Hum.rec.anlog 15 unit SQ DAILY@0900 03/11/22 04/25/22 [Lantus Solostar Pen] Lactulose 10 gm PO BID PRN 03/11/22 04/25/22 Menthol [Biofreeze] 1 applic TOPICAL Q6H PRN 03/11/22 04/25/22 guaiFENesin [guaiFENesin Oral 100 mg PO Q4H PRN 03/11/22 04/25/22 Solution] Ammonium Lactate Lotion 1 applic TOPICAL Q12H 04/25/22 04/25/22 [Lac-Hydrin 12% Lotion] Previous Rx's Medication Instructions Recorded Albuterol Inhaler [Ventolin Hfa 1 puff INHALATION RT-QID PRN #8 gm 08/06/21 Inhaler] Allergies Allergy/AdvReac Type Severity Reaction Status Date / Time rofecoxib [From Vioxx] AdvReac Confusion Verified 04/25/22 11:55 Review of Systems ROS Statement: Those systems with pertinent positive or pertinent negative responses have been documented in the HPI. ROS Other: All systems not noted in ROS Statement are negative. Past Medical History Past Medical History: Cancer, Heart Failure, COPD, Diabetes Mellitus, Eye Disorder, Hyperlipidemia, Hypertension, Pneumonia Additional Past Medical History / Comment(s): Kidney cancer post-nephrectomy on the right, IDDM type II, neuropathy bilateral hands/feet, bilateral diabetic retinopathy with legal blindness in the past but vision better since eye injections, recent diagnosis of DVT of the right lower extremity, bronchitis, home oxygen at 3L/NC ATC, chronic elevation of the left hemidiaphragm, obstructive sleep apnea currently not using device, thoracolumbar kyphoscoliosis, constipation History of Any Multi-Drug Resistant Organisms: None Reported Past Surgical History: Appendectomy, Back Surgery, Hernia Repair, Joint Replacement, Tubal Ligation Additional Past Surgical History / Comment(s): Low back surgery, total R shoulder, R nephrectomy, several abdominal hernia surgeries, colonoscopy Past Anesthesia/Blood Transfusion Reactions: No Reported Reaction Additional Past Anesthesia/Blood Transfusion Reaction / Comment(s): Pt has received blood in past without reaction. Past Psychological History: No Psychological Hx Reported Smoking Status: Never smoker Past Alcohol Use History: None Reported Past Drug Use History: None Reported - Past Family History Mother Family Medical History: Cancer Father Family Medical History: Unable to Obtain Additional Family Medical History / Comment(s): Father when pt was 1 yrs old. General Exam - General Exam Comments Initial Comments: GENERAL: Patient is well-developed and well-nourished. Patient is nontoxic and well- hydrated and is in mild distress. ENT: Neck is soft and supple. No significant lymphadenopathy is noted. Oropharynx is clear. Moist mucous membranes. Neck has full range of motion without eliciting any pain. EYES: The sclera were anicteric and conjunctiva were pink and moist. Extraocular movements were intact and pupils were equal round and reactive to light. Eyelids were unremarkable. PULMONARY: Unlabored respirations. Good breath sounds bilaterally. No audible rales rhonchi or wheezing was noted. CARDIOVASCULAR: There is a regular rate and rhythm without any murmurs gallops or rubs. ABDOMEN: Soft and nontender with normal bowel sounds. SKIN: Patient has a small abscess on the laceration on the lateral aspect of the right eyebrow NEUROLOGIC: Patient is alert and oriented 2. Cranial nerves II through XII are grossly intact. Motor and sensory are also intact. Normal speech, volume and content. Symmetrical smile. MUSCULOSKELETAL: Normal extremities with adequate strength and full range of motion. LYMPHATICS: No significant lymphadenopathy is noted PSYCHIATRIC: Normal psychiatric evaluation. Limitations: no limitations Course Vital Signs 04/25/22 11:49 Temperature 98.2 F Pulse Rate 93 Respiratory 16 Rate Blood Pressure 132/51 O2 Sat by Pulse 96 Oximetry Procedures - Laceration Laceration #1 Consent Obtained: verbal consent Indication: laceration Site: face Size (cm): 1 Description: linear Anesthetic Used: lidocaine 1% Type of Sutures: nylon Size of Sutures: 4-0 Number of Sutures: 2 Technique: running Patient Tolerated Procedure: well Medical Decision Making - Medical Decision Making CT of the brain and C-spine showed no acute abnormality. Disposition Clinical Impression: Laceration of eyebrow, Fall Disposition: HOME SELF-CARE Instructions (If sedation given, give patient instructions): Fall Prevention for Older Adults (ED) Additional Instructions: Sutures should be removed in 5 days Is patient prescribed a controlled substance at d/c from ED?: No Referrals: Caleb Tsang MD [Primary Care Provider] - 1-2 days Time of Disposition: 14:03
--- NOTE | 2022-04-25 13:27 | CT ---
EXAMINATION TYPE: CT brain cspine wo con DATE OF EXAM: 04/25/2022 COMPARISON: CT dated 11/03/2021 HISTORY: Fall. CT DLP: 1749.1 mGycm Automated exposure control for dose reduction was used. TECHNIQUE: CT scan of the head and cervical spine are performed without contrast. FINDINGS: There is no acute intracranial hemorrhage, mass effect, or midline shift identified. Brai n volume loss changes and suspected mild bilateral cerebral white matter chronic microvascular ischem ic changes. Right periorbital soft tissue swelling/hematoma. Grossly unremarkable orbits otherwise. M ucosal thickening of the maxillary sinuses with hyperdensity which could represent inspissated secret ion however fungal infection can't be excluded. Artifactual cervical canal spine images. Cervical spine is visualized in its entirety from C1 through upper thoracic levels and demonstrates satisfactory alignment without evidence of acute fracture or dislocation. Prevertebral soft tissue appears within normal limits. Questionable mild subluxation of the right atlantoaxial articulation, possibly positional. Degenerative changes of the cervical spine with multilevel central spinal canal stenosis and neurofor aminal stenosis. No paraspinal lesion. Scattered arterial atherosclerotic calcifications. Prominent m ediastinal lymph nodes, suboptimally assessed by this CT scan. Left apical pulmonary nodule measuring 6 mm, for elective CT assessment. IMPRESSION: 1. No acute intracranial posttraumatic sequela or acute calvarial bone fracture. Right periorbital so ft tissue swelling/hematoma. 2. The described changes at the right atlantoaxial articulation could be positional. Otherwise no genevieve dence of acute traumatic bony injury of the cervical spine. 3. Other incidental findings and recommendations as described above.
[2022-04-25] MEDS ORDERED: HYDROmorphone 0.5 MG/0.5 ML SYRINGE IVP STA (13:28)
[2022-04-25] MEDS ORDERED: KETOROLAC 15 MG/ML 1 ML VIAL IVP STA (13:28)
[2022-04-25 15:06] VITALS: BP 129/69; PULSE 68; RESP 18
== END 2022-04-25 15:06 | disposition home or self-care (01) ==
LOC: EC 11:41
DX: S01.111A Laceration without foreign body of right eyelid and periocular area, initial encounter (principal); J44.9 Chronic obstructive pulmonary disease, unspecified; E11.9 Type 2 diabetes mellitus without complications; E78.5 Hyperlipidemia, unspecified; I10 Essential (primary) hypertension; Z88.8 Allergy status to other drugs, medicaments and biological substances; W07.XXXA Fall from chair, initial encounter; Z23 Encounter for immunization
CPT/HCPCS: 72125; 70450; 90715; 12011; 90471; 99284; J2001

== ENCOUNTER 2022-05-09 12:13 | Emergency (ER) | payer MEDICARE, OTHER ==
[2022-05-09 12:22] VITALS: BP 136/81; PULSE 88; RESP 20; TEMP 98
--- NOTE | 2022-05-09 13:29 | CT ---
EXAMINATION TYPE: CT brain wo con DATE OF EXAM: 05/09/2022 COMPARISON: CT dated 04/25/2022 HISTORY: ams CT DLP: 1188.4 mGycm Automated exposure control for dose reduction was used. TECHNIQUE: CT scan of the brain is performed without IV contrast administration. FINDINGS: Brain volume loss changes, likely age-related. Bilateral cerebral white matter hypodensities, likely representing chronic microvascular ischemic changes. No acute intracranial hemorrhage. No gross acute cortical infarct. No midline shift, herniation or ve ntriculomegaly. Unremarkable basal cisterns, sella and CP angles. No gross space-occupying lesion, vasogenic edema or mass effect. Unremarkable orbits. Mucosal thickening of the maxillary sinuses with hyperdensity within which could be related to inspissated secretion however fungal infection cannot be excluded. Clear mastoid air c ells. Unremarkable calvarial bones. IMPRESSION: No acute intracranial abnormality or gross space-occupying lesion by this nonenhanced CT scan. Chroni c and incidental findings as described above.
--- NOTE | 2022-05-09 14:00 | ED ---
Fall HPI - General Chief Complaint: Fall Stated Complaint: Fall, Rib and Hip Pain Time Seen by Provider: 05/09/22 12:17 Source: patient, EMS, RN notes reviewed Mode of arrival: EMS - History of Present Illness Initial Comments: This is a 77-year-old female who presents to the emergency department after a fall. Patient is a resident at [facility]. The fall was unwitnessed, the staff heard her scream and found her on the floor. Patient states that she tripped over a table leg. Denies any loss of consciousness. States that she reinjured her face and has pain on the right side of her body, specifically the right knee, right forearm, hip, ribs, and lower back. Denies any loss of consciousness. She does take Xarelto daily. She was in the emergency department on 04/25 for a fall as well. She required suture repair to a laceration near the right eyebrow. States that as a result of this fall, she now has increased pain to this area of the face. Denies any fevers, chills, sore throat, cough, dyspnea, chest pain, palpitations, abdominal pain, nausea, vomiting, or diarrhea. MD Complaint: fall Fall From: standing Fall Witnessed: no Place Fall Occurred: [facility] Loss of Consciousness: none Prolonged Down Time?: no Symptoms Prior to Fall: none Location: head, back Location - Extremities: Right: Arm, Elbow, Forearm, Knee, Leg - Related Data Home Medications Medication Instructions Recorded Confirmed Atorvastatin [Lipitor] 20 mg PO HS@209903/28/21 05/09/22 Furosemide [Lasix] 40 mg PO DAILY@89903/28/21 05/09/22 Acetaminophen Tab [Tylenol] 650 mg PO Q4H PRN 06/25/21 05/09/22 Cetirizine HCl 10 mg PO HS@209906/25/21 05/09/22 Rivaroxaban [Xarelto] 20 mg PO DAILY@89906/25/21 05/09/22 metFORMIN HCL [Glucophage] 1,000 mg PO BID@899,209906/25/21 05/09/22 Mag Hydrox/Aluminum Hyd/Simeth 10 ml PO Q4H PRN 08/05/21 05/09/22 [Mylanta Maximum Strength Liq] Melatonin 3 mg PO HS@209908/05/21 05/09/22 Psyllium Husk 100% [Metamucil 6 gm PO DAILY@89908/05/21 05/09/22 Packet] Semaglutide [Ozempic] 0.25 mg SQ TU@89908/05/21 05/09/22 Insulin Lispro [humaLOG Kwikpen] See Protocol SQ AC-TID 11/03/21 05/09/22 Nitroglycerin Sl Tabs [Nitrostat] 0.4 mg SL Q5M PRN 11/03/21 05/09/22 Sertraline [Zoloft] 25 mg PO HS@209911/03/21 05/09/22 Albuterol Nebulized [Ventolin 2.5 mg INHALATION RT-Q6H 03/11/22 05/09/22 Nebulized] Aspirin 81 mg PO DAILY@89903/11/22 05/09/22 Budesonide-Formot 160-4.5 Mcg 2 puff INHALATION RT-BID@899,209903/11/22 05/09/22 [Symbicort 160-4.5 Mcg Inhaler] Docusate [Colace] 100 mg PO BID PRN 03/11/22 05/09/22 Ferrous Sulfate [Iron (65 MG 325 mg PO BID@899,209903/11/22 05/09/22 Elemental)] Insulin Glargine,Hum.rec.anlog 15 unit SQ DAILY@89903/11/22 05/09/22 [Lantus Solostar Pen] Lactulose 10 gm PO BID PRN 03/11/22 05/09/22 Menthol [Biofreeze] 1 applic TOPICAL Q6H PRN 03/11/22 05/09/22 guaiFENesin [guaiFENesin Oral 100 mg PO Q4H PRN 03/11/22 05/09/22 Solution] Ammonium Lactate Lotion 1 applic TOPICAL HS 04/25/22 05/09/22 [Lac-Hydrin 12% Lotion] Albuterol Inhaler [Ventolin Hfa 1 puff INHALATION RT-QID PRN 05/09/22 05/09/22 Inhaler] Allergies Allergy/AdvReac Type Severity Reaction Status Date / Time rofecoxib [From Vioxx] AdvReac Confusion Verified 05/09/22 13:27 Review of Systems ROS Statement: Those systems with pertinent positive or pertinent negative responses have been documented in the HPI. ROS Other: All systems not noted in ROS Statement are negative. Past Medical History Past Medical History: Cancer, Heart Failure, COPD, Diabetes Mellitus, Eye Disorder, Hyperlipidemia, Hypertension, Pneumonia Additional Past Medical History / Comment(s): Kidney cancer post-nephrectomy on the right, IDDM type II, neuropathy bilateral hands/feet, bilateral diabetic retinopathy with legal blindness in the past but vision better since eye injections, recent diagnosis of DVT of the right lower extremity, bronchitis, home oxygen at 3L/[place] ATC, chronic elevation of the left hemidiaphragm, obstructive sleep apnea currently not using device, thoracolumbar kyphoscoliosis, constipation History of Any Multi-Drug Resistant Organisms: None Reported Past Surgical History: Appendectomy, Back Surgery, Hernia Repair, Joint Replacement, Tubal Ligation Additional Past Surgical History / Comment(s): Low back surgery, total R shoulder, R nephrectomy, several abdominal hernia surgeries, colonoscopy Past Anesthesia/Blood Transfusion Reactions: No Reported Reaction Additional Past Anesthesia/Blood Transfusion Reaction / Comment(s): Pt has received blood in past without reaction. Past Psychological History: No Psychological Hx Reported Smoking Status: Never smoker Past Alcohol Use History: None Reported Past Drug Use History: None Reported - Past Family History Mother Family Medical History: Cancer Father Family Medical History: Unable to Obtain Additional Family Medical History / Comment(s): Father when pt was 1 yrs old. General Exam Limitations: no limitations General appearance: alert, in no apparent distress Head exam: Present: other (Periorbital ecchymosis, no tenderness. Well healing laceration to the right eyebrow.) Eye exam: Present: normal appearance, PERRL, EOMI. Absent: scleral icterus, conjunctival injection, periorbital swelling, periorbital tenderness ENT exam: Present: normal exam, mucous membranes moist, normal external ear exam Neck exam: Present: normal inspection. Absent: tenderness, meningismus, lymphadenopathy Respiratory exam: Present: normal lung sounds bilaterally. Absent: respiratory distress, wheezes, rales, rhonchi, stridor Cardiovascular Exam: Present: regular rate, normal rhythm, normal heart sounds. Absent: systolic murmur, diastolic murmur, rubs, gallop, clicks Extremities exam: Present: other (Swelling and tenderness to the right forearm, right knee, and right hip. Limited ROM at baseline, per the patient ROM is slightly reduced in the right knee. 2+ radial, dorsalis pedis, and tibialis posterior pulses bilaterally. Capillary refill <1 second in the fingers and toes.) Neurological exam: Present: alert, oriented X3, CN II-XII intact Psychiatric exam: Present: normal affect, normal mood Skin exam: Present: warm, dry, intact, normal color. Absent: rash Course Vital Signs 05/09/22 12:17 Temperature 98 F Pulse Rate 88 Respiratory 20 Rate Blood Pressure 136/81 O2 Sat by Pulse 96 Oximetry Medical Decision Making - Medical Decision Making This is a 77-year-old female who presents to the emergency department after a fall. Multiple x-rays of the right side of her body, as well as the lumbar spine, and chest were obtained, all revealing no fractures or dislocations. She does have soft tissue swelling over the right forearm and a possible right knee joint effusion, consistent with her injury. CT of the brain was obtained as well, revealing no acute intracranial abnormalities. Patient stable for discharge home. Instructed her to use her walker whenever she moves around and to get up slowly. She may also benefit from physical therapy to improve her balance and mobility. Advised she ice the areas of pain for the first 2 days followed by heat there afterwards. If pain continues, she may need repeat x- rays in 7-10 days. Return precautions reviewed in depth, the patient is instructed to return to the emergency department with any new, worsening, or concerning symptoms. Patient verbalized understanding. This case was discussed in detail with the attending ED physician. Presentation, findings, and treatment plan discussed in detail as well. - Radiology Data Radiology results: report reviewed, image reviewed Disposition Clinical Impression: Fall with injury Disposition: HOME SELF-CARE Instructions (If sedation given, give patient instructions): Fall Prevention for Older Adults (ED) Additional Instructions: Return to the emergency department with any new, worsening, or concerning symptoms. Ice the areas of pain for the first 2 days followed by heat there afterwards. If pain does not improve, you may need repeat x-rays. Be sure to move around slowly and use ambulation aids such as a cane or a walker to prevent falls from continuing to occur. You may also benefit from physical therapy to help with balance and mobility. Is patient prescribed a controlled substance at d/c from ED?: No Referrals: Caleb Tsang MD [Primary Care Provider] - 1-2 days
--- NOTE | 2022-05-09 14:12 | XR ---
EXAMINATION TYPE: XR knee complete RT DATE OF EXAM: 05/09/2022 COMPARISON: None HISTORY: Pain following fall TECHNIQUE: 3 view right knee FINDINGS: There are advanced degenerative changes through the lateral tibial plateau. Medial and late ral femoral condylar and lateral tibial plateau spurring is present. Patellofemoral joint space degen erative changes present. Minimal joint effusion is not excluded. No acute fractures within the field of view. Follow up exams can be performed 7-10 days acute trauma for continued pain. IMPRESSION: 1. Moderately advanced degenerative joint changes within the patellofemoral joint space and lateral compartment joint space predominantly the tibial plateau laterally. 2. Minimal joint effusion
--- NOTE | 2022-05-09 14:13 | XR ---
EXAMINATION TYPE: XR lumbar spine 2 or 3V DATE OF EXAM: 05/09/2022 COMPARISON: None HISTORY: Fall, pain TECHNIQUE: 3 view lumbar spine FINDINGS: Pedicle screws are present L3-L5. Disc spaces are present L3-4 L4-5. Posterior disc space n arrowing is present at L2-3 and diffusely through the L5-S1 level. Vertebral body heights are preserved. Alignment appears preserved. IMPRESSION: 1. Postsurgical fixation L3-L5. 2. No acute osseous abnormality radiographically evident. 3. Degenerative disc changes posteriorly at L2-3 and through the L3-4 L4-5 and L5-S1 levels.
--- NOTE | 2022-05-09 14:15 | XR ---
EXAMINATION TYPE: XR femur RT DATE OF EXAM: 05/09/2022 COMPARISON: None HISTORY: Fall, pain TECHNIQUE: 2 view right femur FINDINGS: Femoral head articulates with the acetabulum. Joint space narrowing is present. No acute fr acture or dislocation is evident. Advanced degenerative changes are within the right knee. Follow up exams can be performed 7-10 days from acute trauma for continued pain. IMPRESSION: 1. No acute osseous abnormality right femur.
--- NOTE | 2022-05-09 14:16 | XR ---
EXAMINATION TYPE: XR Hip Complete RT DATE OF EXAM: 05/09/2022 COMPARISON: None HISTORY: Fall, pain TECHNIQUE: 2 view right hip FINDINGS: Femoral head articulates with the acetabulum. Joint space is diffusely narrowed. No acute f racture or dislocation is evident. IMPRESSION: 1. Mild to moderate degenerative changes right hip.
--- NOTE | 2022-05-09 14:17 | XR ---
EXAMINATION TYPE: XR forearm RT DATE OF EXAM: 05/09/2022 COMPARISON: None HISTORY: Fall, pain TECHNIQUE: 2 view right forearm FINDINGS: Radius aligns normally with the humerus. Soft tissue swelling is along the dorsum of the pr oximal forearm. No acute fractures or dislocations are evident. Some mild ulnar negative variance may be present. Follow up exams can be performed 7-10 days from acute trauma for continued pain. IMPRESSION: 1. Soft tissue prominence over the dorsum of the proximal right forearm.
--- NOTE | 2022-05-09 14:18 | XR ---
EXAMINATION TYPE: XR chest 2V DATE OF EXAM: 05/09/2022 COMPARISON: 03/11/2022 INDICATION: Fall, pain TECHNIQUE: Frontal and lateral views of the chest are obtained. FINDINGS: The heart size is mildly prominent. The pulmonary vasculature is normal. There is elevation of the left diaphragm appears chronic. Suspicious infiltrate is not evident. No pn eumothorax is evident. Mediastinum appears intact.. Degenerative changes are at the left shoulder. R ight shoulder prosthesis is present. IMPRESSION: 1. No acute pulmonary process. 2. No acute posttraumatic change.
== END 2022-05-09 15:01 | disposition home or self-care (01) ==
LOC: EC 12:13
DX: S01.111A Laceration without foreign body of right eyelid and periocular area, initial encounter (principal); M79.631 Pain in right forearm; M25.561 Pain in right knee; M25.551 Pain in right hip; E11.319 Type 2 diabetes mellitus with unspecified diabetic retinopathy without macular edema; E11.40 Type 2 diabetes mellitus with diabetic neuropathy, unspecified; I11.0 Hypertensive heart disease with heart failure; I50.9 Heart failure, unspecified; J44.9 Chronic obstructive pulmonary disease, unspecified; E78.5 Hyperlipidemia, unspecified; Z79.4 Long term (current) use of insulin; Z79.01 Long term (current) use of anticoagulants; Z79.84 Long term (current) use of oral hypoglycemic drugs; Z79.82 Long term (current) use of aspirin; Z79.51 Long term (current) use of inhaled steroids; Z79.899 Other long term (current) drug therapy; Z99.81 Dependence on supplemental oxygen; W18.30XA Fall on same level, unspecified, initial encounter; Y92.129 Unspecified place in nursing home as the place of occurrence of the external cause
CPT/HCPCS: 70450; 71046; 72100; 73502; 99284

== ENCOUNTER 2022-05-17 07:11 | Emergency (ER) | payer MEDICARE, OTHER ==
[2022-05-17 07:26] VITALS: RESP 18
--- NOTE | 2022-05-17 07:32 | ED ---
General Adult HPI - General Chief complaint: Fall Stated complaint: Fall Time Seen by Provider: 05/17/22 07:15 Source: patient, EMS, RN notes reviewed, old records reviewed Mode of arrival: wheelchair - History of Present Illness Initial comments: This is a 77-year-old female who presents emergency Department after falling out of bed. Patient states she felt better and rolled of that onto the floor. Patient states she hit her face. Patient denies loss of consciousness patient denies neck pain patient denies numbness weakness. Patient denies any chest pain or back pain. Patient denies abdominal pain patient denies any extremity pain. Patient states he only thing that hurts is just under her right eye and she states the pain is not that bad. Patient denies being sick recently she denies any fever chills or cough. Patient denies any chest pain or worsening shortness of breath. Patient denies any abdominal pain patient denies nausea vomiting diarrhea. - Related Data Home Medications Medication Instructions Recorded Confirmed Atorvastatin [Lipitor] 20 mg PO HS 03/28/21 05/17/22 Furosemide [Lasix] 40 mg PO DAILY 03/28/21 05/17/22 Acetaminophen Tab [Tylenol] 650 mg PO Q4H PRN 06/25/21 05/17/22 Cetirizine HCl 10 mg PO HS 06/25/21 05/17/22 Rivaroxaban [Xarelto] 20 mg PO DAILY 06/25/21 05/17/22 metFORMIN HCL [Glucophage] 1,000 mg PO BID 06/25/21 05/17/22 Mag Hydrox/Aluminum Hyd/Simeth 10 ml PO Q4H PRN 08/05/21 05/17/22 [Mylanta Maximum Strength Liq] Melatonin 3 mg PO HS 08/05/21 05/17/22 Psyllium Husk 100% [Metamucil 6 gm PO DAILY 08/05/21 05/17/22 Packet] Semaglutide [Ozempic] 0.25 mg SQ TU@0900 08/05/21 05/17/22 Insulin Lispro [humaLOG Kwikpen] See Protocol SQ AC-TID 11/03/21 05/17/22 Nitroglycerin Sl Tabs [Nitrostat] 0.4 mg SL Q5M PRN 11/03/21 05/17/22 Sertraline [Zoloft] 25 mg PO HS 11/03/21 05/17/22 Albuterol Nebulized [Ventolin 2.5 mg INHALATION RT-Q6H PRN 03/11/22 05/17/22 Nebulized] Aspirin 81 mg PO DAILY 03/11/22 05/17/22 Budesonide-Formot 160-4.5 Mcg 2 puff INHALATION RT-BID 03/11/22 05/17/22 [Symbicort 160-4.5 Mcg Inhaler] Docusate [Colace] 100 mg PO BID PRN 03/11/22 05/17/22 Ferrous Sulfate [Iron (65 MG 325 mg PO BID 03/11/22 05/17/22 Elemental)] Insulin Glargine,Hum.rec.anlog 12 unit SQ DAILY 03/11/22 05/17/22 [Lantus Solostar Pen] Lactulose 10 gm PO BID PRN 03/11/22 05/17/22 Menthol [Biofreeze] 1 applic TOPICAL Q6H PRN 03/11/22 05/17/22 guaiFENesin [guaiFENesin Oral 100 mg PO Q4H PRN 03/11/22 05/17/22 Solution] Ammonium Lactate Lotion 1 applic TOPICAL HS 04/25/22 05/17/22 [Lac-Hydrin 12% Lotion] Albuterol Inhaler [Ventolin Hfa 1 puff INHALATION RT-QID PRN 05/09/22 05/17/22 Inhaler] Allergies Allergy/AdvReac Type Severity Reaction Status Date / Time rofecoxib [From Vioxx] AdvReac Confusion Verified 05/17/22 08:39 Review of Systems ROS Statement: Those systems with pertinent positive or pertinent negative responses have been documented in the HPI. ROS Other: All systems not noted in ROS Statement are negative. Past Medical History Past Medical History: Cancer, Heart Failure, COPD, Diabetes Mellitus, Eye Disorder, Hyperlipidemia, Hypertension, Pneumonia Additional Past Medical History / Comment(s): Kidney cancer post-nephrectomy on the right, IDDM type II, neuropathy bilateral hands/feet, bilateral diabetic retinopathy with legal blindness in the past but vision better since eye injections, recent diagnosis of DVT of the right lower extremity, bronchitis, home oxygen at 3L/[place] ATC, chronic elevation of the left hemidiaphragm, obstructive sleep apnea currently not using device, thoracolumbar kyphoscoliosis, constipation History of Any Multi-Drug Resistant Organisms: None Reported Past Surgical History: Appendectomy, Back Surgery, Hernia Repair, Joint Replacement, Tubal Ligation Additional Past Surgical History / Comment(s): Low back surgery, total R shoulder, R nephrectomy, several abdominal hernia surgeries, colonoscopy Past Anesthesia/Blood Transfusion Reactions: No Reported Reaction Additional Past Anesthesia/Blood Transfusion Reaction / Comment(s): Pt has received blood in past without reaction. Past Psychological History: No Psychological Hx Reported Smoking Status: Never smoker Past Alcohol Use History: None Reported Past Drug Use History: None Reported - Past Family History Mother Family Medical History: Cancer Father Family Medical History: Unable to Obtain Additional Family Medical History / Comment(s): Father when pt was 1 yrs old. General Exam - General Exam Comments Initial Comments: GENERAL: Patient is well-developed and well-nourished. Patient is nontoxic and well- hydrated and is in mild distress. ENT: Neck is soft and supple. No significant lymphadenopathy is noted. Oropharynx is clear. Moist mucous membranes. Neck has full range of motion without eliciting any pain. EYES: The sclera were anicteric and conjunctiva were pink and moist. Extraocular movements were intact and pupils were equal round and reactive to light. Eyelids were unremarkable. PULMONARY: Unlabored respirations. Good breath sounds bilaterally. No audible rales rhonchi or wheezing was noted. CARDIOVASCULAR: There is a regular rate and rhythm without any murmurs gallops or rubs. ABDOMEN: Soft and nontender with normal bowel sounds. SKIN: There is some mild tenderness under the right eye and a superficial abrasion NEUROLOGIC: Patient is alert and oriented 2. Cranial nerves II through XII are grossly intact. Motor and sensory are also intact. Normal speech, volume and content. Symmetrical smile. MUSCULOSKELETAL: Normal extremities with adequate strength and full range of motion. LYMPHATICS: No significant lymphadenopathy is noted PSYCHIATRIC: Normal psychiatric evaluation. Course Vital Signs 05/17/22 05/17/22 07:14 10:51 Temperature 98.6 F 98.3 F Pulse Rate 86 112 H Respiratory 18 18 Rate Blood Pressure 155/77 121/62 O2 Sat by Pulse 100 99 Oximetry Medical Decision Making - Medical Decision Making EKG shows sinus rhythm at 90 bpm CA interval is 179 122 QT Interval 336 QTC Is 391. Patient's EKG Shows No ST Segment Elevation or Depression. CT of the brain shows no acute abnormality. CT of the C-spine showed no acute abnormality. CT of the facial bones showed no acute abnormality. Disposition Clinical Impression: Facial abrasion, Fall Disposition: HOME SELF-CARE Instructions (If sedation given, give patient instructions): Fall Prevention for Older Adults (ED), Abrasion (ED) Is patient prescribed a controlled substance at d/c from ED?: No Referrals: Caleb Tsang MD [Primary Care Provider] - 1-2 days Time of Disposition: 08:52
--- NOTE | 2022-05-17 08:31 | CT ---
History Left breast EXAMINATION TYPE: CT brain cspine wo con DATE OF EXAM: 05/17/2022 COMPARISON: 05/09/2022 HISTORY: Fall, right eye abrasion inferior medial aspect CT DLP: 2457.[address] of the brain was performed. The ventricles, basal cisterns and sulci overlying the cerebral convexities demonstrate moderately en largement. There is no evidence for intracranial hemorrhage or sulcal effacement. There is decreased attenuatio n about the periventricular white matter and deep white matter of both cerebral hemispheres, compatib le with chronic small vessel ischemia. No mass effects are seen. If symptoms persist consider MRI. Osseous calvarium is intact. IMPRESSION: 1. Age related atrophic and chronic small vessel ischemic change without acute intracranial process seen at this time. CT Cervical Spine: Unenhanced CT of the cervical spine was performed with bone and soft tissue window settings submitted . Coronal and sagittal reconstruction is obtained. There is normal alignment and prevertebral soft tissues. No evidence for acute cervical fracture . Scattered degenerative disc disease and spondylosis. Biapical scarring. IMPRESSION: 1. No evidence for acute fracture or subluxation of the cervical spine.
--- NOTE | 2022-05-17 08:38 | CT ---
EXAMINATION TYPE: CT facial bones wo con DATE OF EXAM: 05/17/2022 COMPARISON: None HISTORY: Fall, right eye abrasion inferior medial aspect CT DLP: Included in brain study mGycm Unenhanced CT of the facial bones was performed in the axial and coronal planes. Bone and soft tissu e window settings are submitted. There is right infraorbital soft tissue edema noted. I do not see evidence for displaced facial bone fracture or depressed facial bone fracture. The globes are intact. Mucosal thickening bilateral maxillary sinuses and ethmoid air cells. Hyperdensity within the maxilla ry sinuses may reflect inspissated component. IMPRESSION: 1. No evidence for depressed or displaced facial bone fracture.
[2022-05-17 10:53] VITALS: BP 121/62; PULSE 112; TEMP 98.3
== END 2022-05-17 10:51 | disposition home or self-care (01) ==
LOC: EC 07:11
DX: S00.81XA Abrasion of other part of head, initial encounter (principal); J44.9 Chronic obstructive pulmonary disease, unspecified; E11.9 Type 2 diabetes mellitus without complications; I11.0 Hypertensive heart disease with heart failure; E78.5 Hyperlipidemia, unspecified; Z88.8 Allergy status to other drugs, medicaments and biological substances; W06.XXXA Fall from bed, initial encounter
CPT/HCPCS: 70450; 70486; 72125; 93005

== ENCOUNTER 2022-05-26 01:23 | Inpatient (IN) | payer MEDICARE, OTHER ==
[2022-05-26] MEDS ORDERED: SODIUM CHLORIDE 0.9% 1,000 ML IV STA (01:41)
[2022-05-26] MEDS ORDERED: VANCOMYCIN IV PER PHARMACY 1 EACH MISC MISCELLANE PRN (01:41)
[2022-05-26] MEDS ORDERED: VANCOMYCIN 1,500 MG in SODIUM CHLORIDE 0.9% 250 ML IVPB STA (01:45)
--- NOTE | 2022-05-26 01:47 | ED ---
Extremity Problem HPI - General Chief complaint: Extremity Problem,Nontraumatic Stated complaint: Leg pain Time Seen by Provider: 05/26/22 01:24 Source: patient Mode of arrival: EMS - History of Present Illness Initial comments: This is a pleasant 77-year-old female sent in by local rehabilitation facility for left leg swelling and redness. They were concerned about the possibility of a DVT. Patient has a history of cancer, heart failure, COPD, diabetes mellitus, hypertension, and pneumonia. Patient complaining of some pain to both knees as well as the left lower leg. She denies fever. No headache, no fever or chills, no changes in vision or hearing, no sore throat or difficulty with speech, no neck pain, no chest pain or shortness of breath, no abdominal pain, no nausea or vomiting, no changes in urination or bowel movements, no numbness or tingling,no skin rashes or lesions. MD Complaint: extremity pain - Related Data Home Medications Medication Instructions Recorded Confirmed Atorvastatin [Lipitor] 20 mg PO HS@209903/28/21 05/26/22 Furosemide [Lasix] 40 mg PO DAILY@89903/28/21 05/26/22 Acetaminophen Tab [Tylenol] 650 mg PO Q4H PRN 06/25/21 05/26/22 Cetirizine HCl 10 mg PO HS@209906/25/21 05/26/22 Rivaroxaban [Xarelto] 20 mg PO DAILY@89906/25/21 05/26/22 metFORMIN HCL [Glucophage] 1,000 mg PO BID@899,209906/25/21 05/26/22 Mag Hydrox/Aluminum Hyd/Simeth 10 ml PO Q4H PRN 08/05/21 05/26/22 [Mylanta Maximum Strength Liq] Melatonin 3 mg PO HS@209908/05/21 05/26/22 Psyllium Husk 100% [Metamucil 6 gm PO DAILY@89908/05/21 05/26/22 Packet] Semaglutide [Ozempic] 0.25 mg SQ TU@89908/05/21 05/26/22 Insulin Lispro [humaLOG Kwikpen] See Protocol SQ AC-TID 11/03/21 05/26/22 Nitroglycerin Sl Tabs [Nitrostat] 0.4 mg SL Q5M PRN 11/03/21 05/26/22 Sertraline [Zoloft] 25 mg PO HS@209911/03/21 05/26/22 Albuterol Nebulized [Ventolin 2.5 mg INHALATION RT-Q6H PRN 03/11/22 05/26/22 Nebulized] Aspirin 81 mg PO DAILY@0900 03/11/22 05/26/22 Budesonide-Formot 160-4.5 Mcg 2 puff INHALATION RT-BID@09,209903/11/22 05/26/22 [Symbicort 160-4.5 Mcg Inhaler] Docusate [Colace] 100 mg PO BID PRN 03/11/22 05/26/22 Ferrous Sulfate [Iron (65 MG 325 mg PO BID@0900,209903/11/22 05/26/22 Elemental)] Insulin Glargine,Hum.rec.anlog 12 unit SQ DAILY@0900 03/11/22 05/26/22 [Lantus Solostar Pen] Lactulose 10 gm PO BID PRN 03/11/22 05/26/22 Menthol [Biofreeze] 1 applic TOPICAL Q6H PRN 03/11/22 05/26/22 guaiFENesin [guaiFENesin Oral 100 mg PO Q4H PRN 03/11/22 05/26/22 Solution] Albuterol Inhaler [Ventolin Hfa 1 puff INHALATION RT-QID PRN 05/09/22 05/26/22 Inhaler] Allergies Allergy/AdvReac Type Severity Reaction Status Date / Time rofecoxib [From Vioxx] AdvReac Confusion Verified 05/26/22 01:29 Review of Systems ROS Statement: Those systems with pertinent positive or pertinent negative responses have been documented in the HPI. ROS Other: All systems not noted in ROS Statement are negative. Past Medical History Past Medical History: Cancer, Heart Failure, COPD, Diabetes Mellitus, Eye Disorder, Hyperlipidemia, Hypertension, Pneumonia Additional Past Medical History / Comment(s): Kidney cancer post-nephrectomy on the right, IDDM type II, neuropathy bilateral hands/feet, bilateral diabetic retinopathy with legal blindness in the past but vision better since eye injections, recent diagnosis of DVT of the right lower extremity, bronchitis, home oxygen at 3L/[place] ATC, chronic elevation of the left hemidiaphragm, obstructi ve sleep apnea currently not using device, thoracolumbar kyphoscoliosis, constipation History of Any Multi-Drug Resistant Organisms: None Reported Past Surgical History: Appendectomy, Back Surgery, Hernia Repair, Joint Replacement, Tubal Ligation Additional Past Surgical History / Comment(s): Low back surgery, total R shoul glen, R nephrectomy, several abdominal hernia surgeries, colonoscopy Past Anesthesia/Blood Transfusion Reactions: No Reported Reaction Additional Past Anesthesia/Blood Transfusion Reaction / Comment(s): Pt has received blood in past without reaction. Past Psychological History: No Psychological Hx Reported Smoking Status: Never smoker Past Alcohol Use History: None Reported Past Drug Use History: None Reported - Past Family History Mother Family Medical History: Cancer Father Family Medical History: Unable to Obtain Additional Family Medical History / Comment(s): Father when pt was 1 yrs old. General Exam - General Exam Comments Initial Comments: Deconditioned appearing elderly female in no significant distress at time of seeing her. Appears to be adequately hydrated. No respiratory distress. Cranial nerves II through XII grossly intact General appearance: alert, in no apparent distress, obese Head exam: Present: atraumatic, normocephalic, normal inspection Eye exam: Present: normal appearance, PERRL, EOMI. Absent: scleral icterus, conjunctival injection, periorbital swelling ENT exam: Present: normal exam, mucous membranes moist Neck exam: Present: normal inspection. Absent: tenderness, meningismus, lymphadenopathy Respiratory exam: Present: normal lung sounds bilaterally. Absent: respiratory distress, wheezes, rales, rhonchi, stridor, chest wall tenderness, accessory muscle use Cardiovascular Exam: Present: regular rate, normal rhythm, normal heart sounds. Absent: systolic murmur, diastolic murmur, rubs, gallop, clicks GI/Abdominal exam: Present: soft, normal bowel sounds. Absent: distended, tenderness, guarding, rebound, rigid Extremities exam: Present: normal inspection, full ROM, normal capillary refill. Absent: tenderness, pedal edema, joint swelling, calf tenderness Back exam: Present: normal inspection Neurological exam: Present: alert, oriented X3, CN II-XII intact Psychiatric exam: Present: normal affect, normal mood. Absent: anxious, flat affect Skin exam: Present: warm, dry, intact, normal color, erythema (Patient has erythema to the anterior aspect of the left lower leg. This does extend onto the dorsum of the left foot. No definitive break in skin integrity.). Absent: rash, cyanosis, diaphoretic Course Vital Signs 05/26/22 05/26/22 01:29 02:34 Temperature 99.0 F Pulse Rate 103 H 107 H Respiratory 20 19 Rate Blood Pressure 132/74 O2 Sat by Pulse 98 96 Oximetry Medical Decision Making - Medical Decision Making Patient presents with erythema the left lower leg consistent with cellulitis. Patient was started on antibiotics. Blood cultures will be sent. Lactic acid. Patient appears to be hemodynamically stable otherwise. Lincomycin started. Patient will likely require admission. Discussed case in detail with the hospitalist [employer]. Patient will be admitted to the hospitalist group for further treatment and further evaluation. The case was discussed in detail with ED attending physician. Presentation, findings, treatment plan discussed in detail. Associate Director Finance Dr. Kelly - Lab Data Result diagrams: 05/26/22 02:30 05/26/22 04:14 Lab Results 05/26/22 05/26/22 05/26/22 Range/Units 01:41 02:30 02:30 WBC 10.9 H (3.8-10.6) k/uL RBC 3.25 L (3.80-5.40) m/uL Hgb 8.8 L (11.4-16.0) gm/dL Hct 29.3 L (34.0-46.0) % MCV 90.3 (80.0-100.0) fL MCH 27.2 (25.0-35.0) pg MCHC 30.2 L (31.0-37.0) g/dL RDW 15.5 (11.5-15.5) % Plt Count 326 (150-450) k/uL MPV 7.4 Neutrophils % 72 % Lymphocytes % 12 % Monocytes % 7 % Eosinophils % 6 % Basophils % 0 % Neutrophils # 7.9 H (1.3-7.7) k/uL Lymphocytes # 1.3 (1.0-4.8) k/uL Monocytes # 0.7 (0-1.0) k/uL Eosinophils # 0.7 (0-0.7) k/uL Basophils # 0.0 (0-0.2) k/uL Hypochromasia Marked Plasma Lactic Acid Frankie 1.9 (0.7-2.0) mmol/L Urine Color Light Yellow Urine Appearance Cloudy H (Clear) Urine pH 5.5 (5.0-8.0) Ur Specific Willows 1.010 (1.001-1.035) Urine Protein Negative (Negative) Urine Glucose (UA) Negative (Negative) Urine Ketones Negative (Negative) Urine Blood Negative (Negative) Urine Nitrite Negative (Negative) Urine Bilirubin Negative (Negative) Urine Urobilinogen <2.0 (<2.0) mg/dL Ur Leukocyte Esterase Large H (Negative) Urine WBC 5 (0-5) /hpf Ur Squamous Epith Cells 4 (0-4) /hpf Urine Bacteria Rare H (None) /hpf Urine Mucus Rare H (None) /hpf Disposition Clinical Impression: Cellulitis of left leg Disposition: ADMITTED IP TO THIS HOSP Condition: Fair Is patient prescribed a controlled substance at d/c from ED?: No
[2022-05-26] MEDS ORDERED: ACETAMINOPHEN TAB 325 MG TAB PO PRN ×2 (02:44→10:27)
[2022-05-26] MEDS ORDERED: MELATONIN 3 MG TABLET PO PRN (02:44)
[2022-05-26] MEDS ORDERED: NALOXONE 0.4 MG/ML 1 ML VIAL IV PRN (02:44)
[2022-05-26] MEDS ORDERED: MORPHINE SULFATE 4 MG/ML SYRINGE IV PRN (02:44)
[2022-05-26] MEDS ORDERED: DOCUSATE 100 MG CAP PO PRN (02:50)
[2022-05-26] MEDS ORDERED: NITROGLYCERIN SL TABS 0.4 MG TAB SUBLINGUAL PRN (02:50)
[2022-05-26 02:58] LABS: Basophils % (A) 0 %; Eosinophils # (A) 0.7 k/uL (0-0.7); Eosinophils % (A) 6 %; HCT 29.3 % (34.0-46.0); HGB 8.8 gm/dL (11.4-16.0); Hypochromasia Marked; Lymphocytes # (A) 1.3 k/uL (1.0-4.8); Lymphocytes % (A) 12 %; MCH 27.2 pg (25.0-35.0); MCHC 30.2 g/dL (31.0-37.0); MCV 90.3 fL (80.0-100.0); Mean Platelet Volume 7.4; Monocytes # (A) 0.7 k/uL (0-1.0); Monocytes % (A) 7 %; Neutrophils # (A) 7.9 k/uL (1.3-7.7); Neutrophils % (A) 72 %; Platelet Count 326 k/uL (150-450); RBC 3.25 m/uL (3.80-5.40); RDW 15.5 % (11.5-15.5); WBC 10.9 k/uL (3.8-10.6)
[2022-05-26] MEDS: SODIUM CHLORIDE 0.9% 1,000 ML IV SCH (03:53)
[2022-05-26 05:04] LABS: Albumin 3.4 g/dL (3.5-5.0); Calcium 8.7 mg/dL (8.4-10.2); Potassium 4.2 mmol/L (3.5-5.1); Total Bilirubin 0.4 mg/dL (0.2-1.3); Total Protein 6.6 g/dL (6.3-8.2)
[2022-05-26] MEDS: SYMBICORT 160-4.5 MCG INHALER INHALATION SCH ×2 (07:50→19:52)
[2022-05-26] MEDS ORDERED: FUROSEMIDE 40 MG TAB PO SCH (09:00)
[2022-05-26] MEDS: ASPIRIN 81 MG PO SCH (09:30)
[2022-05-26] MEDS: INSULIN ASPART (NovoLOG) 100 UNIT/ML VIAL SQ SCH ×4 (10:22→22:14)
[2022-05-26] MEDS ORDERED: ALBUTEROL HFA INHALER INHALATION PRN (10:27)
[2022-05-26] MEDS ORDERED: guaiFENesin SYRUP 100MG/5ML 200 MG/10 ML CUP PO PRN (10:27)
[2022-05-26] MEDS ORDERED: LACTULOSE 20 GM/30 ML CUP PO PRN (10:27)
[2022-05-26] MEDS ORDERED: MAG HYDROX/AL HYDROX/SIMETH 30 ML CUP PO PRN ×2 (10:27→10:32)
[2022-05-26 11:43] LABS: Appearance,Urine Cloudy (Clear); Bacteria,Urine Rare /hpf; Bilirubin,Urine Negative (Negative); Blood,Urine Negative (Negative); Color,Urine Light Yellow; Glucose,Urine (UA) Negative (Negative); Ketones,Urine Negative (Negative); Leukocyte Esterase,Urine Large (Negative); Mucus,Urine Rare /hpf; Nitrite,Urine Negative (Negative); PH, Urine 5.5 (5.0-8.0); Protein,Urine Negative (Negative); Squamous Epithelial Cell,Urine 4 /hpf (0-4); Urobilinogen,Urine <2.0 mg/dL (<2.0); WBC,Urine 5 /hpf (0-5)
[2022-05-26 12:21] LABS: Glucose,Whole Blood 104 mg/dL (70-110)
[2022-05-26] MEDS: INSULIN DETEMIR (LEVEMIR) 100 UNIT/ML SYR SQ SCH (12:30)
--- NOTE | 2022-05-26 13:03 | CT ---
EXAMINATION TYPE: CT lower extremity LT wo con DATE OF EXAM: 05/26/2022 COMPARISON: X-ray 05/09/2022 HISTORY: Left lower leg swelling CT DLP: 789.80 mGycm Automated exposure control for dose reduction was used. FINDINGS: There is a small suprapatellar bursal fluid collection. There is significant narrowing of the tricomp artment joint space is most marked involving the lateral compartment. Hypertrophic spurring is seen. There is no erosive changes no acute fracture. No dislocation is diffuse subcutaneous edema. Correlat e clinically. Calcifications anterior soft tissues. IMPRESSION: 1. Severe arthropathy with no acute fracture. 2. Diffuse subcutaneous correlate clinically.
[2022-05-26] MEDS ORDERED: METHYL SALICYLATE/MENTHOL CREAM 5 OZ TOPICAL PRN (13:58)
--- NOTE | 2022-05-26 14:21 | P.HPIM ---
History of Present Illness H&P Date: 05/26/22 This is a 77-year-old female who was brought to the emergency department for increasing left lower extremity pain with swelling and redness and concerns for possible DVT. Patient is a resident at [facility] and follows with in the outpatient setting. Questionable early onset of cellulitis given the erythema and swelling. Patient was started on broad-spectrum antibiotics and will consult infectious disease. Patient apparently had a fall and there is a small bruise noted on the patellar area of the left lower extremity and extreme sensitivity to any palpation of the prepatellar area and will obtain CT of the lower extremity. Patient did have venous Doppler ordered but refused. 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 Patient reports that she chronically wears oxygen at the facility and does have history of obstructive sleep apnea although does not wear the CPAP. Patient also with chronic constipation and frequently uses bowel regimen. Patient is a diabetic and normally uses long-acting insulin along with 3 times a day insulins on sliding scale although patient is refusing Accu-Cheks and insulin administration. Patient reports she was not noted to be on any blood thinners although her documentation reports she takes 20 mg of Xarelto daily. Labs: WBC was 10.9, hemoglobin is 8.8, platelets are 326, sodium 134, potassium 4.2, BUN 34, creatinine 1.14, lactic acid 1.9 Review Of Systems: Constitutional: No fever, no chills, no night sweats. No weight change. Reports chronic weakness, fatigue or lethargy. No daytime sleepiness. EENT: No headache. No blurred vision or double vision, no loss of vision. No loss of Hearing, no ringing in the ears, no dizziness. No nasal drainage or congestion. No epistaxis. No sore throat. Lungs: No shortness of breath, cough, no sputum production. No wheezing. Cardiovascular: No chest pain, no lower extremity edema. No palpitations. No paroxysmal nocturnal dyspnea. No orthopnea. No lightheadedness or dizziness. No syncopal episodes. Abdominal: No abdominal pain. No nausea, vomiting. No diarrhea. No constipation. No bloody or tarry stools.. No loss of appetite. Genitourinary: No dysuria, increased frequency, urgency. No urinary retention. Musculoskeletal: Reports chronic myalgias. No muscle weakness, reports gait dysfunction, reports recent frequent falls. No back pain. No neck pain. Integumentary: No wounds, no lesions. No rash or pruritus. No unusual bruising. No change in hair or nails. Neurologic: No aphasia. No facial droop. No change in mentation. No head injury. No headache. No paralysis. No paresthesia. Psychiatric: No depression. No anxiety. No mood swings. Endocrine: No abnormal blood sugars. No weight change. No excessive sweating or thirst. No cold intolerance. PHYSICAL EXAMINATION: GENERAL: The patient is alert and oriented x3, Well developed, well nourished. HEENT: Pupils are round and equally reacting to light. EOMI. no scleral icterus. No conjunctival pallor. Normocephalic, atraumatic. No pharyngeal erythema. No thyromegaly. CARDIOVASCULAR: S1 and S2 muffled PULMONARY: diminished breath sounds bilaterally with no wheezing or rhonchi noted. ABDOMEN: soft. Nontender on exam. obese. non-distended, normoactive bowel sounds. No palpable organomegaly. MUSCULOSKELETAL: No joint swelling or deformity. EXTREMITIES: No cyanosis, clubbing, or pedal edema. Left lower extremity knee with a bruise noted and erythema with some swelling and extreme sensitivity to light palpation of the prepatellar area NEUROLOGICAL: Gross neurological examination did not reveal any focal deficits. Diffuse weakness SKIN: No rashes. Possible early component of cellulitis of the left lower extremity Assessment: Left lower extremity pain with erythema and swelling prepatellar area status post fall Possible cellulitis of the left lower extremity History of right lower extremity DVT maintained on Xarelto COPD history, not in exacerbation Diabetes mellitus, type II, insulin-dependent History of heart failure, not in exacerbation Hyperlipidemia Hypertension Kidney cancer status post nephrectomy on the right Bilateral diabetic retinopathy with legal blindness History of obstructive sleep apnea and does not use CPAP in the outpatient setting GI prophylaxis DVT prophylaxis no code Plan: Recommend to continue with current medications and management and have consulted infectious disease as patient was started on broad-spectrum antibiotics for possible left lower extremity cellulitis. There is some erythema and swelling noted with extreme sensitivity to the prepatellar area with skin intact. Patient also recently had a fall and is maintained on Xarelto and there is some bruising noted to the left knee and CT of the left lower extremity was done which showed a small suprapatellar bursal fluid collection with significant narrowing of the tricompartment joint space involving the lateral compartment with hypertrophic spurring seen and no erosive changes or acute fracture noted. There is no dislocation with some diffuse subcutaneous edema and calcifications of the anterior soft tissues. Will consult orthopedics and appreciate input and recommendations. Will hold Xarelto for now until evaluated by orthopedics in the event the patient may need a knee aspiration. Patient is a diabetic and normally takes insulin 3 times daily along with long-acting although currently refusing Accu-Cheks and refusing insulin. Patient does have her daughter who is legal guardian and this will be discussed. Recommend close monitoring of blood sugars and will follow-up with repeat labs. The impression and plan of care has been dictated by Melody Mclain, nurse practitioner as directed. Dr. Leanna MD I have performed a history and examination and MDM of this patient, discussed the same with the dictator, and agree with the dictator's assessment and plan as written ,documented as a scribe. Based on total visit time, I have performed more than 50% of the visit. Any additional findings or plans will be noted. Past Medical History Past Medical History: Cancer, Heart Failure, COPD, Diabetes Mellitus, Eye Disorder, Hyperlipidemia, Hypertension, Pneumonia Additional Past Medical History / Comment(s): Kidney cancer post-nephrectomy on the right, IDDM type II, neuropathy bilateral hands/feet, bilateral diabetic retinopathy with legal blindness in the past but vision better since eye injections, recent diagnosis of DVT of the right lower extremity, bronchitis, home oxygen at 3L/[place] ATC, chronic elevation of the left hemidiaphragm, obstructive sleep apnea currently not using device, thoracolumbar kyphoscoliosis, constipation History of Any Multi-Drug Resistant Organisms: None Reported Past Surgical History: Appendectomy, Back Surgery, Hernia Repair, Joint Replacement, Tubal Ligation Additional Past Surgical History / Comment(s): Low back surgery, total R shoulder, R nephrectomy, several abdominal hernia surgeries, colonoscopy Past Anesthesia/Blood Transfusion Reactions: No Reported Reaction Additional Past Anesthesia/Blood Transfusion Reaction / Comment(s): Pt has received blood in past without reaction. Past Psychological History: No Psychological Hx Reported Smoking Status: Never smoker Past Alcohol Use History: None Reported Past Drug Use History: None Reported - Past Family History Mother Family Medical History: Cancer Father Family Medical History: Unable to Obtain Additional Family Medical History / Comment(s): Father when pt was 1 yrs old. Medications and Allergies Home Medications Medication Instructions Recorded Confirmed Type RX: Atorvastatin [Lipitor] 20 mg PO HS@209903/28/21 05/26/22 History RX: Furosemide [Lasix] 40 mg PO DAILY@89903/28/21 05/26/22 History RX: Acetaminophen Tab [Tylenol] 650 mg PO Q4H PRN 06/25/21 05/26/22 History RX: Cetirizine HCl 10 mg PO HS@209906/25/21 05/26/22 History RX: Rivaroxaban [Xarelto] 20 mg PO DAILY@89906/25/21 05/26/22 History RX: metFORMIN HCL [Glucophage] 1,000 mg PO BID@0900,209906/25/21 05/26/22 History RX: Mag Hydrox/Aluminum Hyd/Simeth 10 ml PO Q4H PRN 08/05/21 05/26/22 History [Mylanta Maximum Strength Liq] RX: Melatonin 3 mg PO HS@209908/05/21 05/26/22 History RX: Psyllium Husk 100% [Metamucil 6 gm PO DAILY@89908/05/21 05/26/22 History Packet] RX: Semaglutide [Ozempic] 0.25 mg SQ TU@89908/05/21 05/26/22 History RX: Insulin Lispro [humaLOG See Protocol SQ AC-TID 11/03/21 05/26/22 History Kwikpen] RX: Nitroglycerin Sl Tabs 0.4 mg SL Q5M PRN 11/03/21 05/26/22 History [Nitrostat] RX: Sertraline [Zoloft] 25 mg PO HS@209911/03/21 05/26/22 History RX: Albuterol Nebulized [Ventolin 2.5 mg INHALATION RT-Q6H PRN 03/11/22 05/26/22 History Nebulized] RX: Aspirin 81 mg PO DAILY@89903/11/22 05/26/22 History RX: Budesonide-Formot 160-4.5 Mcg 2 puff INHALATION RT-BID@0900,2100 03/11/22 05/26/22 History [Symbicort 160-4.5 Mcg Inhaler] RX: Docusate [Colace] 100 mg PO BID PRN 03/11/22 05/26/22 History RX: Ferrous Sulfate [Iron (65 MG 325 mg PO BID@0900,2100 03/11/22 05/26/22 History Elemental)] RX: Insulin Glargine,Hum.rec.anlog 12 unit SQ DAILY@0900 03/11/22 05/26/22 History [Lantus Solostar Pen] RX: Lactulose 10 gm PO BID PRN 03/11/22 05/26/22 History RX: Menthol [Biofreeze] 1 applic TOPICAL Q6H PRN 03/11/22 05/26/22 History RX: guaiFENesin [guaiFENesin Oral 100 mg PO Q4H PRN 03/11/22 05/26/22 History Solution] RX: Albuterol Inhaler [Ventolin 1 puff INHALATION RT-QID PRN 05/09/22 05/26/22 History Hfa Inhaler] Allergies Allergy/AdvReac Type Severity Reaction Status Date / Time rofecoxib [From Vioxx] AdvReac Confusion Verified 05/26/22 01:29 Physical Exam Vitals: Vital Signs Temp Pulse Pulse Resp BP BP Pulse Ox 05/26/22 07:00 98.9 F 103 H 16 102/66 97 05/26/22 02:34 107 H 19 132/74 96 05/26/22 01:29 99.0 F 103 H 20 98 Intake and Output 05/25/22 05/26/22 05/26/22 22:59 06:59 14:59 Intake Total 118 Balance 118 Intake: Oral 118 Other: # Voids 1 Weight 99.79 kg Results CBC & Chem 7: 05/26/22 02:30 05/26/22 04:14 Labs: Abnormal Lab Results - Last 24 Hours (Table) 05/26/22 05/26/22 Range/Units 02:30 04:14 WBC 10.9 H (3.8-10.6) k/uL RBC 3.25 L (3.80-5.40) m/uL Hgb 8.8 L (11.4-16.0) gm/dL Hct 29.3 L (34.0-46.0) % MCHC 30.2 L (31.0-37.0) g/dL Neutrophils # 7.9 H (1.3-7.7) k/uL Sodium 134 L (137-145) mmol/L BUN 34 H (7-17) mg/dL Creatinine 1.14 H (0.52-1.04) mg/dL Glucose 100 H (74-99) mg/dL Albumin 3.4 L (3.5-5.0) g/dL Assessment and Plan Time with Patient: Greater than 30
--- NOTE | 2022-05-26 17:40 | P.CNOR ---
History of Present Illness - [facility] Consult date: 05/26/22 Consult reason: joint pain (left knee pain) History of present illness: The patient is a 77-year-old female with a past medical history including kidney cancer, heart failure, COPD, diabetes mellitus, neuropathy of the hands and feet, and recent DVT, who presented to the emergency department from [facility] for further evaluation of her left lower extremity. There has been an increasing pain and swelling. There is a concern for a DVT. The patient is currently on Xarelto. According to nursing staff, the patient has had 4 recent falls. The patient is very confused and has been trying to get out of bed all day. The patient states that her knee is very painful. Review of Systems ROS unobtainable: due to mental status Past Medical History Past Medical History: Cancer, Heart Failure, COPD, Diabetes Mellitus, Eye Disorder, Hyperlipidemia, Hypertension, Pneumonia Additional Past Medical History / Comment(s): Kidney cancer post-nephrectomy on the right, IDDM type II, neuropathy bilateral hands/feet, bilateral diabetic retinopathy with legal blindness in the past but vision better since eye injections, recent diagnosis of DVT of the right lower extremity, bronchitis, home oxygen at 3L/NC ATC, chronic elevation of the left hemidiaphragm, obstructive sleep apnea currently not using device, thoracolumbar kyphoscoliosis, constipation History of Any Multi-Drug Resistant Organisms: None Reported Past Surgical History: Appendectomy, Back Surgery, Hernia Repair, Joint Replacement, Tubal Ligation Additional Past Surgical History / Comment(s): Low back surgery, total R shoulder, R nephrectomy, several abdominal hernia surgeries, colonoscopy Past Anesthesia/Blood Transfusion Reactions: No Reported Reaction Additional Past Anesthesia/Blood Transfusion Reaction / Comm: Pt has received blood in past without reaction. Past Psychological History: No Psychological Hx Reported Smoking Status: Never smoker Past Alcohol Use History: None Reported Past Drug Use History: None Reported - Past Family History Mother Family Medical History: Cancer Father Family Medical History: Unable to Obtain Additional Family Medical History / Comment(s): Father when pt was 1 yrs old. Medications and Allergies Home Medications Medication Instructions Recorded Confirmed Type Atorvastatin [Lipitor] 20 mg PO HS@2100 03/28/21 05/26/22 History Furosemide [Lasix] 40 mg PO DAILY@0900 03/28/21 05/26/22 History Acetaminophen Tab [Tylenol] 650 mg PO Q4H PRN 08/13/21 07/14/22 History Cetirizine HCl 10 mg PO HS@209906/25/21 05/26/22 History Rivaroxaban [Xarelto] 20 mg PO DAILY@0906/25/21 05/26/22 History metFORMIN HCL [Glucophage] 1,000 mg PO BID@0900,209906/25/21 05/26/22 History Mag Hydrox/Aluminum Hyd/Simeth 10 ml PO Q4H PRN 08/05/21 05/26/22 History [Mylanta Maximum Strength Liq] Melatonin 3 mg PO HS@209908/05/21 05/26/22 History Psyllium Husk 100% [Metamucil 6 gm PO DAILY@89908/05/21 05/26/22 History Packet] Semaglutide [Ozempic] 0.25 mg SQ TU@89908/05/21 05/26/22 History Insulin Lispro [humaLOG Kwikpen] See Protocol SQ AC-TID 11/03/21 05/26/22 History Nitroglycerin Sl Tabs [Nitrostat] 0.4 mg SL Q5M PRN 11/03/21 05/26/22 History Sertraline [Zoloft] 25 mg PO HS@209911/03/21 05/26/22 History Albuterol Nebulized [Ventolin 2.5 mg INHALATION RT-Q6H PRN 03/11/22 05/26/22 History Nebulized] Aspirin 81 mg PO DAILY@89903/11/22 05/26/22 History Budesonide-Formot 160-4.5 Mcg 2 puff INHALATION RT-BID@899,209903/11/22 05/26/22 History [Symbicort 160-4.5 Mcg Inhaler] Docusate [Colace] 100 mg PO BID PRN 03/11/22 05/26/22 History Ferrous Sulfate [Iron (65 MG 325 mg PO BID@899,209903/11/22 05/26/22 History Elemental)] Insulin Glargine,Hum.rec.anlog 12 unit SQ DAILY@0900 03/11/22 05/26/22 History [Lantus Solostar Pen] Lactulose 10 gm PO BID PRN 03/11/22 05/26/22 History Menthol [Biofreeze] 1 applic TOPICAL Q6H PRN 03/11/22 05/26/22 History guaiFENesin [guaiFENesin Oral 100 mg PO Q4H PRN 03/11/22 05/26/22 History Solution] Albuterol Inhaler [Ventolin Hfa 1 puff INHALATION RT-QID PRN 05/09/22 05/26/22 History Inhaler] Allergies Allergy/AdvReac Type Severity Reaction Status Date / Time rofecoxib [From Vioxx] AdvReac Confusion Verified 05/26/22 01:29 Physical Examination The patient is a 77-year-old female in no acute distress. She is alert and oriented 1. Exam of the left lower extremity reveals slight erythema to the anterior inferior knee area. There is swelling to the suprapatellar area. There is slight warmth noted. No open wounds noted. The skin is not taut over the area. There is skin wrinkling to the left lower leg and foot, that appears to be swelling that has improved recently. She has good foot and ankle motion. Some numbness to the foot which is chronic. Circulatory status is intact. Results CT of the left lower extremity reveals a fluid collection to the suprapatellar b ursa. The fluid collection does not encroach into the skin. - Labs Labs: Abnormal Lab Results - Last 24 Hours (Table) 05/26/22 05/26/22 05/26/22 Range/Units 01:41 02:30 04:14 WBC 10.9 H (3.8-10.6) k/uL RBC 3.25 L (3.80-5.40) m/uL Hgb 8.8 L (11.4-16.0) gm/dL Hct 29.3 L (34.0-46.0) % MCHC 30.2 L (31.0-37.0) g/dL Neutrophils # 7.9 H (1.3-7.7) k/uL Sodium 134 L (137-145) mmol/L BUN 34 H (7-17) mg/dL Creatinine 1.14 H (0.52-1.04) mg/dL Glucose 100 H (74-99) mg/dL Albumin 3.4 L (3.5-5.0) g/dL Urine Appearance Cloudy H (Clear) Ur Leukocyte Esterase Large H (Negative) Urine Bacteria Rare H (None) /hpf Urine Mucus Rare H (None) /hpf H & H 05/26/22 Range/Units 02:30 Hgb 8.8 L (11.4-16.0) gm/dL Hct 29.3 L (34.0-46.0) % Result Diagrams: 05/26/22 02:30 05/26/22 04:14 Assessment and Plan (1) Fall Current Visit: Yes Status: Acute Code(s): W19.XXXA - UNSPECIFIED FALL, INITIAL ENCOUNTER SNOMED Code(s): 6234681 (2) Suprapatellar bursitis of left knee Current Visit: Yes Status: Acute Code(s): M70.52 - OTHER BURSITIS OF KNEE, LEFT KNEE SNOMED Code(s): 5734337119360588 Plan: The clinical findings were discussed with the patient and the nursing staff. The case was discussed at length with Dr. Torres. No surgical intervention is planned at this time. We will continue to observe the left knee and leg. If the area continues to improve, no further treatment is needed. If the area continues to worsen and aspiration or I&D may be needed. Continue IV antibiotics when IV line is obtained. We will continue to follow patient closely make further recommendations as needed.
[2022-05-26] MEDS: LORATADINE 10 MG TAB PO SCH (21:56)
[2022-05-26] MEDS: ATORVASTATIN 20 MG TAB PO SCH (21:56)
[2022-05-26] MEDS: SERTRALINE 25 MG TAB PO SCH (21:56)
[2022-05-26] MEDS: FERROUS SULFATE 325 MG TAB PO SCH (21:56)
[2022-05-26] MEDS: MELATONIN 3 MG TABLET PO SCH (21:59)
[2022-05-26 22:05] LABS: Glucose,Whole Blood 105 mg/dL (70-110)
[2022-05-27] MEDS ORDERED: VANCOMYCIN 1,500 MG in SODIUM CHLORIDE 0.9% 250 ML IVPB SCH (02:00)
[2022-05-27] MEDS: SODIUM CHLORIDE 0.9% 1,000 ML IV SCH ×2 (04:03→23:06)
[2022-05-27 06:14] LABS: African American GFR (CKD) 73 (>60 ml/min/1.73 sqM); Anion Gap 3 mmol/L; Blood Urea Nitrogen 23 mg/dL (7-17); Calcium 8.3 mg/dL (8.4-10.2); Carbon Dioxide 30 mmol/L (22-30); Chloride 104 mmol/L (98-107); Glucose 115 mg/dL (74-99); Non-African American GFR(CKD) 64 (>60 ml/min/1.73 sqM); Potassium 4.1 mmol/L (3.5-5.1); Sodium 137 mmol/L (137-145)
[2022-05-27] MEDS: INSULIN ASPART (NovoLOG) 100 UNIT/ML VIAL SQ SCH ×4 (07:29→22:45)
[2022-05-27] MEDS: SYMBICORT 160-4.5 MCG INHALER INHALATION SCH ×2 (08:00→19:37)
--- NOTE | 2022-05-27 08:16 | P.CONS ---
History of Present Illness - Reason for Consult Consult date: 05/26/22 Cellulitis Requesting physician: Melody Mclain - Chief Complaint Left leg pain and swelling x few days - History of Present Illness Patient is a 77-year-old -[place] female with a past medical history significant for heart failure COPD diabetes mellitus and cancer presenting to the ER from local rehab facility concerning for left leg swelling and redness, patient apparently had a fall before her symptoms started with a small bruise noticed on the patellar area and the patient been complaining of pain to the left lower extremity describing to be more of a sharp in nature 5-6 out of 10 no radiation and worse with movement or touching of the area currently do not have any skin breakdown or any drainage patient on presentation to the hospital did have a low-grade fever of 99 F patient did have white count of 10.90 BUN/creatinine was mildly elevated patient was started on vancomycin blood cultures obtained which are currently pending infectious disease was consulted for further management of antibiotic therapy Review of Systems Positive point has been mentioned in the HPI rest of the systems are negative Past Medical History Past Medical History: Cancer, Heart Failure, COPD, Diabetes Mellitus, Eye Disorder, Hyperlipidemia, Hypertension, Pneumonia Additional Past Medical History / Comment(s): Kidney cancer post-nephrectomy on the right, IDDM type II, neuropathy bilateral hands/feet, bilateral diabetic retinopathy with legal blindness in the past but vision better since eye injections, recent diagnosis of DVT of the right lower extremity, bronchitis, home oxygen at 3L/NC ATC, chronic elevation of the left hemidiaphragm, obstructive sleep apnea currently not using device, thoracolumbar kyphoscoliosis, constipation History of Any Multi-Drug Resistant Organisms: None Reported Past Surgical History: Appendectomy, Back Surgery, Hernia Repair, Joint Replacement, Tubal Ligation Additional Past Surgical History / Comment(s): Low back surgery, total R shoulder, R nephrectomy, several abdominal hernia surgeries, colonoscopy Past Anesthesia/Blood Transfusion Reactions: No Reported Reaction Additional Past Anesthesia/Blood Transfusion Reaction / Comm: Pt has received blood in past without reaction. Past Psychological History: No Psychological Hx Reported Smoking Status: Never smoker Past Alcohol Use History: None Reported Past Drug Use History: None Reported - Past Family History Mother Family Medical History: Cancer Father Family Medical History: Unable to Obtain Additional Family Medical History / Comment(s): Father when pt was 1 yrs old. Medications and Allergies Home Medications Medication Instructions Recorded Confirmed Type Atorvastatin [Lipitor] 20 mg PO HS@209903/28/21 05/26/22 History Furosemide [Lasix] 40 mg PO DAILY@89903/28/21 05/26/22 History Acetaminophen Tab [Tylenol] 650 mg PO Q4H PRN 06/25/21 05/26/22 History Cetirizine HCl 10 mg PO HS@209906/25/21 05/26/22 History Rivaroxaban [Xarelto] 20 mg PO DAILY@00 06/25/21 05/26/22 History metFORMIN HCL [Glucophage] 1,000 mg PO BID@0900,209906/25/21 05/26/22 History Mag Hydrox/Aluminum Hyd/Simeth 10 ml PO Q4H PRN 08/05/21 05/26/22 History [Mylanta Maximum Strength Liq] Melatonin 3 mg PO HS@209908/05/21 05/26/22 History Psyllium Husk 100% [Metamucil 6 gm PO DAILY@89908/05/21 05/26/22 History Packet] Semaglutide [Ozempic] 0.25 mg SQ TU@89908/05/21 05/26/22 History Insulin Lispro [humaLOG Kwikpen] See Protocol SQ AC-TID 11/03/21 05/26/22 History Nitroglycerin Sl Tabs [Nitrostat] 0.4 mg SL Q5M PRN 11/03/21 05/26/22 History Sertraline [Zoloft] 25 mg PO HS@209911/03/21 05/26/22 History Albuterol Nebulized [Ventolin 2.5 mg INHALATION RT-Q6H PRN 03/11/22 05/26/22 History Nebulized] Aspirin 81 mg PO DAILY@89903/11/22 05/26/22 History Budesonide-Formot 160-4.5 Mcg 2 puff INHALATION RT-BID@899,209903/11/22 05/26/22 History [Symbicort 160-4.5 Mcg Inhaler] Docusate [Colace] 100 mg PO BID PRN 03/11/22 05/26/22 History Ferrous Sulfate [Iron (65 MG 325 mg PO BID@0900,209903/11/22 05/26/22 History Elemental)] Insulin Glargine,Hum.rec.anlog 12 unit SQ DAILY@0900 03/11/22 05/26/22 History [Lantus Solostar Pen] Lactulose 10 gm PO BID PRN 03/11/22 05/26/22 History Menthol [Biofreeze] 1 applic TOPICAL Q6H PRN 03/11/22 05/26/22 History guaiFENesin [guaiFENesin Oral 100 mg PO Q4H PRN 03/11/22 05/26/22 History Solution] Albuterol Inhaler [Ventolin Hfa 1 puff INHALATION RT-QID PRN 05/09/22 05/26/22 History Inhaler] Allergies Allergy/AdvReac Type Severity Reaction Status Date / Time rofecoxib [From Vioxx] AdvReac Confusion Verified 05/26/22 01:29 Physical Exam Vitals: Vital Signs Temp Pulse Pulse Resp BP BP Pulse Ox 05/26/22 07:00 98.9 F 103 H 16 102/66 97 05/26/22 02:34 107 H 19 132/74 96 05/26/22 01:29 99.0 F 103 H 20 98 Intake and Output 05/25/22 05/26/22 05/26/22 22:59 06:59 14:59 Intake Total 118 Balance 118 Intake: Oral 118 Other: # Voids 1 Weight 99.79 kg GENERAL DESCRIPTION: And bili female lying in bed, no distress. No tachypnea or accessory muscle of respiration use. HEENT: Shows Pallor , no scleral icterus. Oral mucous membrane is dry. No pharyngeal erythema or thrush NECK: Trachea central, no thyromegaly. LUNGS: Unlabored breathing. Clear to auscultation anteriorly. No wheeze or crackle. HEART: S1, S2, regular rate and rhythm. No loud murmur ABDOMEN: Soft, no tenderness , guarding or rigidity, no organomegaly EXTREMITIES: Left lower leg below the knee did have an area of swelling redness and tenderness. SKIN: No rash, no masses palpable. NEUROLOGICAL: The patient is awake, alert, oriented x3, mood and affect normal. Results CBC & Chem 7: 05/26/22 02:30 05/27/22 05:07 Labs: Abnormal Lab Results - Last 24 Hours (Table) 05/26/22 05/26/22 Range/Units 02:30 04:14 WBC 10.9 H (3.8-10.6) k/uL RBC 3.25 L (3.80-5.40) m/uL Hgb 8.8 L (11.4-16.0) gm/dL Hct 29.3 L (34.0-46.0) % MCHC 30.2 L (31.0-37.0) g/dL Neutrophils # 7.9 H (1.3-7.7) k/uL Sodium 134 L (137-145) mmol/L BUN 34 H (7-17) mg/dL Creatinine 1.14 H (0.52-1.04) mg/dL Glucose 100 H (74-99) mg/dL Albumin 3.4 L (3.5-5.0) g/dL Assessment and Plan (1) Cellulitis of left leg Current Visit: Yes Status: Acute Code(s): L03.116 - CELLULITIS OF LEFT LOWER LIMB SNOMED Code(s): 296399039 Plan: 1patient presented to hospital with left leg pain and swelling in this patient did have recent history of trauma fall patient swelling redness is most concentrated at the prepatellar bursal area concerning for prepatellar bursitis likely from gram-positive skin mary keeping in mind correction patient will need to call for resistant gram-positive such as MRSA. 2we will wait for the CT of the knee and lower extremity being ordered by admitting team. 3Marked area of the redness and swelling. 4vancomycin pharmacy to dose target trough of 15 while watching kidney function and vancomycin trough closely. We will follow on clinical condition and cultures to further adjust medication if needed Thank you for this consultation will follow this patient along with you Time with Patient: Greater than 30
--- NOTE | 2022-05-27 09:10 | P.PN ---
Subjective Progress Note Date: 05/27/22 Principal diagnosis: Left knee pain The patient is a 77-year-old female with a past medical history including kidney cancer, heart failure, COPD, diabetes mellitus, neuropathy of the hands and feet, and recent DVT, who presented to the emergency department from [facility] for further evaluation of her left lower extremity. There has been an increasing pain and swelling. There was a concern for a DVT. The patient is currently on Xarelto. According to nursing staff, the patient has had 4 recent falls. The patient is very confused and has been trying to get out of bed all day. The patient states that her knee is very painful. This morning, she states the leg is feeling "fair". No new complaints today. She still doesn't have an IV line. Objective - Vital Signs Vital signs: Vital Signs Temp 98.7 F 05/27/22 07:00 Pulse 99 05/27/22 07:00 Resp 18 05/27/22 07:00 BP 123/64 05/27/22 07:00 Pulse Ox 99 05/27/22 07:00 FiO2 Intake & Output 05/26/22 05/27/22 05/27/22 18:59 06:59 18:59 Intake Total 118 Balance 118 Intake: Oral 118 Other: Voiding Method Bedside Commode Bedside Commode Bedpan Diaper Incontinent Incontinent # Voids 4 2 - Exam The patient is a 77-year-old female in no acute distress. She is alert and oriented 1. Exam of the left lower extremity reveals slight erythema to the anterior inferior knee area. There is swelling to the suprapatellar area. There is slight warmth noted. There is pain on palpation to the area. No open wounds noted. The skin is not taut over the area. There is skin wrinkling to the left lower leg and foot, that appears to be swelling that has improved recently. She has good foot and ankle motion. Calf is soft and slightly te nder. Some numbness to the foot which is chronic. Circulatory status is intact. - Labs CBC & Chem 7: 05/26/22 02:30 05/27/22 05:07 Labs: Abnormal Lab Results - Last 24 Hours (Table) 05/26/22 05/27/22 Range/Units 01:41 05:07 BUN 23 H (7-17) mg/dL Glucose 115 H (74-99) mg/dL Calcium 8.3 L (8.4-10.2) mg/dL Urine Appearance Cloudy H (Clear) Ur Leukocyte Esterase Large H (Negative) Urine Bacteria Rare H (None) /hpf Urine Mucus Rare H (None) /hpf Microbiology - Last 24 Hours (Table) 05/26/22 02:40 Blood Culture - Preliminary Blood No Growth after 24 hours 05/26/22 02:30 Blood Culture - Preliminary Blood No Growth after 24 hours Assessment and Plan (1) Fall Current Visit: Yes Status: Acute Code(s): W19.XXXA - UNSPECIFIED FALL, INITIAL ENCOUNTER SNOMED Code(s): 3558872 (2) Suprapatellar bursitis of left knee Current Visit: Yes Status: Acute Code(s): M70.52 - OTHER BURSITIS OF KNEE, LEFT KNEE SNOMED Code(s): 0418858166770566 Plan: The clinical findings were discussed with the patient and the nursing staff. The case was discussed at length with Dr. Torres. No surgical intervention is planned at this time. The suprapatellar bursa appears stable at this time. If the area continues to improve, no further treatment is needed. If the area worsens an aspiration or I&D may be needed. Continue IV antibiotics when IV line is obtained. Compression with an po wrap may be helpful if the patient can tolerate it. We will continue to follow peripherally at this time and will make further recommendations as needed.
[2022-05-27] MEDS: ASPIRIN 81 MG PO SCH (10:03)
[2022-05-27] MEDS: PSYLLIUM HUSK 100% 6 GM PACKET PO SCH (10:03)
[2022-05-27] MEDS: FERROUS SULFATE 325 MG TAB PO SCH ×2 (10:03→22:50)
[2022-05-27] MEDS: INSULIN DETEMIR (LEVEMIR) 100 UNIT/ML SYR SQ SCH (10:09)
[2022-05-27] MEDS: ALBUTEROL NEBULIZED 2.5 MG/3 ML INHALATION PRN (11:06)
[2022-05-27 12:33] LABS: Glucose,Whole Blood 176 mg/dL (70-110)
--- NOTE | 2022-05-27 14:35 | CT ---
EXAMINATION TYPE: CT brain wo con CT DLP: 1029.90 mGycm, Automated exposure control for dose reduction was used. DATE OF EXAM: 05/27/2022 2:19 PM COMPARISON: Prior CT Brain from 05/17/2022. CLINICAL INDICATION:Female, 77 years old with history of drowsiness, TECHNIQUE: Brain: Multiple axial CT images of the brain were obtained without IV contrast. FINDINGS: Brain: Extra-axial spaces: No abnormal extra-axial fluid collections. Ventricular system: Dilatation in proportion to cerebral atrophy. Cerebral parenchyma: Cerebral atrophy. No acute intraparenchymal hemorrhage or mass effect. The [place] -white junction is well differentiated. Scattered hypoattenuating areas are seen within the white mat ter. Cerebellum: Unremarkable. Mass effect: No evidence of midline shift. Intracranial vasculature: Atherosclerotic calcifications of the intracranial vessels. Soft tissues: Normal. Calvarium/osseous structures: No depressed skull fracture. Paranasal sinuses and mastoid air cells: Moderate scattered paranasal sinus disease. Visualized orbits: Bilateral aphakia IMPRESSION: 1. No acute intracranial process. 2. Nonspecific white matter changes, likely secondary to chronic small vessel ischemic disease.
--- NOTE | 2022-05-27 15:53 | P.PN ---
Subjective Progress Note Date: 05/27/22 Principal diagnosis: Left lower extremity cellulitis Patient is a 77 year old female with a recent history of for follow-up subsequently presented to hospital with left lower leg pain swelling and redness CT has been negative for any abscess. On today's evaluation that is 05/27/2022, the patient is afebrile, the patient is feeling slightly better, the patient left lower extremity pain and swelling has slightly decreased, the patient denies having any chest pain or shortness of breath or cough no abdominal pain or diarrhea Objective - Vital Signs Vital signs: Vital Signs Temp 98.7 F 05/27/22 07:00 Pulse 106 H 05/27/22 11:18 Resp 18 05/27/22 07:00 BP 123/64 05/27/22 07:00 Pulse Ox 99 05/27/22 07:00 FiO2 Intake & Output 05/26/22 05/27/22 05/27/22 18:59 06:59 18:59 Intake Total 118 Balance 118 Intake: Oral 118 Other: Voiding Method Bedside Commode Bedside Commode Bedpan Diaper Incontinent Incontinent # Voids 4 2 - Exam GENERAL DESCRIPTION: An elderly female lying in bed in no distress RESPIRATORY SYSTEM: Unlabored breathing , decreased breath sounds at bases HEART: S1 S2 regular rate and rhythm , ABDOMEN: Soft , no tenderness EXTREMITIES: Left lower extremity just below the knee did have an area of swelling induration and tenderness - Labs CBC & Chem 7: 05/26/22 02:30 05/27/22 05:07 Labs: Abnormal Lab Results - Last 24 Hours (Table) 05/27/22 05/27/22 Range/Units 05:07 12:31 BUN 23 H (7-17) mg/dL Glucose 115 H (74-99) mg/dL POC Glucose (mg/dL) 176 H (70-110) mg/dL Calcium 8.3 L (8.4-10.2) mg/dL Microbiology - Last 24 Hours (Table) 05/26/22 02:40 Blood Culture - Preliminary Blood No Growth after 24 hours 05/26/22 02:30 Blood Culture - Preliminary Blood No Growth after 24 hours Assessment and Plan (1) Cellulitis of left leg Current Visit: Yes Status: Acute Code(s): L03.116 - CELLULITIS OF LEFT LOWER LIMB SNOMED Code(s): 241702587 Plan: 1patient presented to hospital with left leg pain and swelling in this patient did have recent history of trauma fall patient swelling redness is most concentrated at the prepatellar bursal area concerning for prepatellar bursitis likely from gram-positive skin mary keeping in mind long term patient will need to call for resistant gram-positive such as MRSA. 2CT of the knee and lower extremity complicated with evidence of small suprapatellar bursal fluid collection concerning for bursitis. 3orthopedics has seen the patient recommending no debridement or drainage 4patient to continue with vancomycin pharmacy to dose target trough of 15 while watching kidney function and vancomycin trough closely. Time with Patient: Less than 30
--- NOTE | 2022-05-27 16:18 | P.CNNES ---
History of Present Illness Consult date: 05/27/22 Requesting physician: Malik Cook Reason for Consult: Drowsiness History of Present Illness: Patient is a 77-year-old female came to the hospital by ambulance yesterday home care assistant at 1:23 AM. Patient apparently lives in a long term. Patient does not know the details that she came to the hospital. As per EMS flow sheet, when they arrived at the [facility] on the leak, staff states patient has been having severe lower left X Gutierrez pain and is suspected to have a DVT in the left leg. Patient was noted to be alert and oriented to self and place but was confused to time and event. Patient has history of dementia and has short-term memory loss. Patient complaining of left leg pain 04/22. Patient unable to ambulate on her own due to pain. Patient's vitals at the scene was blood pressure 121/88 pulse rate 109, respiration 18 and saturation 94%. CT of the left leg showed severe arthropathy with no acute fracture. Diffuse subcutaneous edema. CT had just completed, which on my review showed no acute process. Small vessel disease. Mild atrophy. Official report pending. Patient's blood test shows a BBC 10.9 hemoglobin 8.8, platelets 326. Sodium 134 potassium 4.2, BUN 34 creatinine 1.14. Hepatic panel is normal. UA showed cloudy urine, with large amount of leukocyte Estrace, and rare bacteria. Blood culture so far negative. Patient's last hemoglobin A1c 5.8 on 10/27/2021. B12 was 861 on 05/18/2021. TSH was abnormal. Patient states that about couple weeks ago she slipped and fell in the bathroom, hit her head. May be that was the reason that she is here. Her head hurts periodically but not bad. Neurology was consulted for patient being drowsy. She states she has one child. I spoke to patient's daughter on the phone. She states that patient has history of diabetes for 20 years, COPD. She's never smoked, does not drink alcohol. She admits to having dementia at least moderate degree and gets sundowners. Patient can probably walk with a walker, but she refuses to walk. She has just "given up" for 2 years. When she stands up, she does not stand up straight. Patient's daughter believes that she can walk but she does not want to. Patient was not compliant with oxygen, on insulin, therefore patient's daughter moved her to long term in [facility] in July 2021, where she has been living since then. She also mentions that patient has been falling every 2 weeks. She would be sleeping in the chair and fall face forward. Or she would be sitting on the side of the bed and fall. She had this third visit to the hospital last 60 days. She is a fall risk. Review of Systems Appears slightly short of breath, tired. No chest pain, abdominal pain. Complaining of left leg hurting. Left leg is swollen. No fever or chills. No double vision. No slurred speech. No facial droop. No abdominal pain nausea vomiting diarrhea. All other review of systems negative. Past Medical History Past Medical History: Cancer, Heart Failure, COPD, Diabetes Mellitus, Eye Disorder, Hyperlipidemia, Hypertension, Pneumonia Additional Past Medical History / Comment(s): Kidney cancer post-nephrectomy on the right, IDDM type II, neuropathy bilateral hands/feet, bilateral diabetic retinopathy with legal blindness in the past but vision better since eye injections, recent diagnosis of DVT of the right lower extremity, bronchitis, home oxygen at 3L/NC ATC, chronic elevation of the left hemidiaphragm, obstructive sleep apnea currently not using device, thoracolumbar kyphoscoliosis, constipation History of Any Multi-Drug Resistant Organisms: None Reported Past Surgical History: Appendectomy, Back Surgery, Hernia Repair, Joint Replacement, Tubal Ligation Additional Past Surgical History / Comment(s): Low back surgery, total R shoulder, R nephrectomy, several abdominal hernia surgeries, colonoscopy Past Anesthesia/Blood Transfusion Reactions: No Reported Reaction Additional Past Anesthesia/Blood Transfusion Reaction / Comment(s): Pt has received blood in past without reaction. Past Psychological History: No Psychological Hx Reported Smoking Status: Never smoker Past Alcohol Use History: None Reported Past Drug Use History: None Reported - Past Family History Mother Family Medical History: Cancer Father Family Medical History: Unable to Obtain Additional Family Medical History / Comment(s): Father when pt was 1 yrs old. Medications and Allergies Home Medications Medication Instructions Recorded Confirmed Type Atorvastatin [Lipitor] 20 mg PO HS@2100 03/28/21 05/26/22 History Furosemide [Lasix] 40 mg PO DAILY@0900 03/28/21 05/26/22 History Acetaminophen Tab [Tylenol] 650 mg PO Q4H PRN 06/25/21 05/26/22 History Cetirizine HCl 10 mg PO HS@209906/25/21 05/26/22 History Rivaroxaban [Xarelto] 20 mg PO DAILY@0906/25/21 05/26/22 History metFORMIN HCL [Glucophage] 1,000 mg PO BID@00,209906/25/21 05/26/22 History Mag Hydrox/Aluminum Hyd/Simeth 10 ml PO Q4H PRN 08/05/21 05/26/22 History [Mylanta Maximum Strength Liq] Melatonin 3 mg PO HS@209908/05/21 05/26/22 History Psyllium Husk 100% [Metamucil 6 gm PO DAILY@89908/05/21 05/26/22 History Packet] Semaglutide [Ozempic] 0.25 mg SQ TU@89908/05/21 05/26/22 History Insulin Lispro [humaLOG Kwikpen] See Protocol SQ AC-TID 11/03/21 05/26/22 History Nitroglycerin Sl Tabs [Nitrostat] 0.4 mg SL Q5M PRN 11/03/21 05/26/22 History Sertraline [Zoloft] 25 mg PO HS@209911/03/21 05/26/22 History Albuterol Nebulized [Ventolin 2.5 mg INHALATION RT-Q6H PRN 03/11/22 05/26/22 History Nebulized] Aspirin 81 mg PO DAILY@89903/11/22 05/26/22 History Budesonide-Formot 160-4.5 Mcg 2 puff INHALATION RT-BID@899,209903/11/22 05/26/22 History [Symbicort 160-4.5 Mcg Inhaler] Docusate [Colace] 100 mg PO BID PRN 03/11/22 05/26/22 History Ferrous Sulfate [Iron (65 MG 325 mg PO BID@0900,209903/11/22 05/26/22 History Elemental)] Insulin Glargine,Hum.rec.anlog 12 unit SQ DAILY@0903/11/22 05/26/22 History [Lantus Solostar Pen] Lactulose 10 gm PO BID PRN 03/11/22 05/26/22 History Menthol [Biofreeze] 1 applic TOPICAL Q6H PRN 03/11/22 05/26/22 History guaiFENesin [guaiFENesin Oral 100 mg PO Q4H PRN 03/11/22 05/26/22 History Solution] Albuterol Inhaler [Ventolin Hfa 1 puff INHALATION RT-QID PRN 05/09/22 05/26/22 History Inhaler] Allergies Allergy/AdvReac Type Severity Reaction Status Date / Time rofecoxib [From Vioxx] AdvReac Confusion Verified 05/26/22 01:29 Physical Examination - Vital Signs Vital Signs: Vital Signs Temp Pulse Pulse Resp BP Pulse Ox 05/27/22 11:18 106 H 05/27/22 11:09 100 05/27/22 07:00 98.7 F 99 18 123/64 99 05/26/22 20:00 98.3 F 106 H 21 122/84 100 05/26/22 15:44 100 05/26/22 15:00 98.7 F 89 18 124/67 98 Intake and Output 05/26/22 05/27/22 05/27/22 22:59 06:59 14:59 Other: Voiding Method Bedside Commode Diaper Incontinent # Voids 2 Patient is an elderly Afro[place] female, who is in no distress, but appears to have difficulty breathing, effortful breathing. Patient is alert awake. Patient has slow mentation, prolonged latency time to answer questions. Patient states that she is in [facility], and then said currently in [facility]. She thinks is the month of June, but the year she keeps on repeating June. Then she said the year was May. She knows name of the current president Mr. Mckeon. She knows that she is in the hospital but does not know the name. Speech and language functions are normal. Patient can name and repeat very well. No dysarthria. Attention, concentration and fund of knowledge is limited. On cranial nerve examination, pupils are 3 mm, round and not clearly reacting to light, visual jimenez are full on confrontation, with no neglect on double simultaneous stimulation. Her extraocular muscles are intact with no nystagmus. Face is symmetric, tongue protrudes to the midline. Palatal elevation and se nsation normal, hearing is slightly decreased and shoulder shrug normal, facial sensation normal. Shoulder shrug normal. On muscle strength testing, there is no pronator drift and the strength is no rmal in arms distally and proximally. In the lower extremities, her hip flexion is 3-bilaterally, whereas ankle dorsiflexion are normal. Deep tendon reflexes are symmetric, trace in the upper extremities, absent in the lower extremities and plantars are withdrawal bilaterally. Sensory to touch is equal with no neglect. Cerebellar function showed no ataxia for [id number] testing, although she is slightly tremulous. No dysdiadochokinesia. Tone and bulk of muscles normal. Patient has mild tremors of outstretched hands, but she gets tired and legs or hands down. Gait not checked. On general examination, there is no carotid bruit or murmur, S1-S2 audible. Abdomen is soft nontender. No organomegaly, bowel sounds present. Chest is clear. Patient has mild peripheral edema. Her left leg appears swollen, red. Patient has bruise over the left medial knee region. Results - Laboratory Findings CBC and BMP: 05/26/22 02:30 05/27/22 05:07 Abnormal Lab Findings: Abnormal Labs 05/26/22 05/26/22 05/26/22 01:41 02:30 04:14 WBC 10.9 H RBC 3.25 L Hgb 8.8 L Hct 29.3 L MCHC 30.2 L Neutrophils # 7.9 H Sodium 134 L BUN 34 H Creatinine 1.14 H Glucose 100 H POC Glucose (mg/dL) Calcium Albumin 3.4 L Urine Appearance Cloudy H Ur Leukocyte Esterase Large H Urine Bacteria Rare H Urine Mucus Rare H 05/27/22 05/27/22 05:07 12:31 WBC RBC Hgb Hct MCHC Neutrophils # Sodium BUN 23 H Creatinine Glucose 115 H POC Glucose (mg/dL) 176 H Calcium 8.3 L Albumin Urine Appearance Ur Leukocyte Esterase Urine Bacteria Urine Mucus Assessment and Plan Assessment: * Altered mental status, likely due to toxic metabolic encephalopathy. * Left leg swelling with redness, being treated for cellulitis, rule out DVT. * Prepatellar bursitis, left knee * Recent history of fall. Frequent falls. * Possible UTI * Anemia * Mild renal insufficiency * COPD. * Abnormal thyroid functions. * History of dementia. * Degenerative joint disease. * DO NOT RESUSCITATE status. Plan: * Patient has mild encephalopathy likely related to multiple medical issues as mentioned above. * We will check TSH. Her B12 was normal few months ago. No need to repeat. We will check folate. * Check ABG. * Infectious disease on the case, for cellulitis. Patient on vancomycin. * Patient has anemia, consider further evaluation as to the cause. * DVT prophylaxis: Patient was on Xarelto at the long term, currently not on any anticoagulant. Will defer to IM. * Neurologically, no other workup indicated. Dr. Ragsdale will be rounding over the weekend. Please call neurology if any concerns. ABG showed pH 7.39, pCO2 50, pO2 116 and saturation 99.2%. PCO2 better than previous values. Time with Patient: Greater than 30
[2022-05-27 17:00] LABS: Glucose,Whole Blood 292 mg/dL (70-110)
[2022-05-27 17:25] LABS: ABG Base Excess 5.5 mmol/L; ABG HCO3 31 mmol/L (21-25); ABG Oxygen Saturation 99.2 % (94-97); ABG PCO2 50 mmHg (35-45); ABG PH 7.39 (7.35-7.45); ABG PO2 116 mmHg (83-108); ABG TCO2 32 mmol/L (19-24); Allen Test Performed? Yes
--- NOTE | 2022-05-27 21:02 | P.PN ---
Subjective This is a 77-year-old female who was brought to the emergency department for increasing left lower extremity pain with swelling and redness and concerns for possible DVT. Patient is a resident at [facility] on [facility] and follows with in the outpatient setting. Questionable early onset of cellulitis given the erythema and swelling. Patient was started on broad-spectrum antibiotics and will consult infectious disease. Patient apparently had a fall and there is a small bruise noted on the patellar area of the left lower extremity and extreme sensitivity to any palpation of the prepatellar area and will obtain CT of the lower extremity. Patient did have venous Doppler ordered but refused. 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 Patient reports that she chronically wears oxygen at the facility and does have history of obstructive sleep apnea although does not wear the CPAP. Patient also with chronic constipation and frequently uses bowel regimen. Patient is a diabetic and normally uses long-acting insulin along with 3 times a day insulins on sliding scale although patient is refusing Accu-Cheks and insulin administration. Patient reports she was not noted to be on any blood thinners although her documentation reports she takes 20 mg of Xarelto daily. Labs: WBC was 10.9, hemoglobin is 8.8, platelets are 326, sodium 134, potassium 4.2, BUN 34, creatinine 1.14, lactic acid 1.9 05/26/2022 Patient today was more drowsy than this morning, HER-2 waking up but responds to verbal stimuli as before she goes back to sleep. CT of the brain is negative for acute process on Xarelto has resumed. Neurology evaluation is appreciated, no intracranial lesion. Patient remains with IV vancomycin for her left leg cellulitis, she has some soft tissue swelling CT was negative for an abscess or swelling however clinically there is some fluctuant swelling on the anterior leg and because was starting Xarelto without to check ultrasound first. WBCs 10.9, hemoglobin 8.8. She is not eating much and Levemir was placed on hold and she is continued on gentle hydration Review of systems CONSTITUTIONAL: No fever, no malaise, no fatigue. HEENT: No recent visual problems or hearing problems. Denied any sore throat. CARDIOVASCULAR: No orthopnea, PND, no palpitations, no syncope. PULMONARY: No shortness of breath, no cough, no hemoptysis. GASTROINTESTINAL: No diarrhea, no nausea, no vomiting, no abdominal pain. Normoactive bowel sounds. NEUROLOGICAL: No headaches, no weakness, no numbness. Active Medications Generic Name Dose Route Start Last Admin Trade Name Freq PRN Reason Stop Dose Admin Acetaminophen 650 mg 05/26/22 02:44 Acetaminophen Tab 325 Mg Tab PO Q6HR PRN Mild Pain or Fever > 100.5 Acetaminophen 650 mg 05/26/22 10:27 Acetaminophen Tab 325 Mg Tab PO Q4H PRN Pain Al Hydroxide/Mg Hydroxide 30 ml 05/26/22 10:32 Mag Hydrox/Al Hydrox/Simeth 30 Ml Cup PO Q4H PRN gerd Albuterol Sulfate 2.5 mg 05/26/22 02:50 05/27/22 11:06 Albuterol Nebulized 2.5 Mg/3 Ml INHALATION 2.5 mg RT-Q6H PRN Administration Shortness Of Breath Albuterol Sulfate 1 puff 05/26/22 10:27 Albuterol Hfa Inhaler INHALATION RT-QID PRN Shortness Of Breath Aspirin 81 mg 05/26/22 09:00 05/27/22 10:03 Aspirin 81 Mg PO 81 mg DAILY LINA Administration Atorvastatin Calcium 20 mg 05/26/22 21:00 05/26/22 21:56 Atorvastatin 20 Mg Tab PO 20 mg HS@2100 LINA Administration Budesonide/Formoterol Fumarate 2 puff 05/26/22 08:00 05/27/22 19:37 Symbicort 160-4.5 Mcg Inhaler INHALATION Not Given RT-BID LINA Docusate Sodium 100 mg 05/26/22 02:50 Docusate 100 Mg Cap PO BID PRN Constipation Famotidine 20 mg 05/27/22 21:00 Famotidine 20 Mg/2 Ml Vial IV Q12HR LINA Ferrous Sulfate 325 mg 05/26/22 21:00 05/27/22 10:03 Ferrous Sulfate 325 Mg Tab PO 325 mg BID@0900,2100 LINA Administration Guaifenesin 100 mg 05/26/22 10:27 Guaifenesin Syrup 100mg/5ml 200 Mg/10 Ml Cup PO Q4H PRN Cough Sodium Chloride 1,000 mls @ 20 mls/hr 05/26/22 02:45 05/27/22 04:03 Saline 0.9% IV Not Given .Q24H LINA Vancomycin HCl 1,500 mg/ 250 mls @ 125 mls/hr 05/27/22 21:00 Sodium Chloride IVPB Q24H [facility] Sodium Chloride 1,000 mls @ 40 mls/hr 05/27/22 21:00 Saline 0.45% IV .Q24H LINA Insulin Aspart 0 unit 05/26/22 07:30 05/27/22 18:02 Insulin Aspart (Novolog) 100 Unit/Ml Vial SQ 5 unit ACHS [facility] Administration Protocol Lactulose 10 gm 05/26/22 10:27 Lactulose 20 Gm/30 Ml Cup PO BID PRN Constipation Loratadine 10 mg 05/26/22 21:00 05/26/22 21:56 Loratadine 10 Mg Tab PO 10 mg HS@2100 [facility] Administration Melatonin 3 mg 05/26/22 21:00 05/26/22 21:59 Melatonin 3 Mg Tablet PO 3 mg HS@2100 [facility] Administration Methyl Salicylate 1 applic 05/26/22 13:58 Methyl Salicylate/Menthol Cream 5 Oz TOPICAL Q6H PRN PAINFUL JOINTS Morphine Sulfate 4 mg 05/26/22 02:44 Morphine Sulfate 4 Mg/Ml Syringe IV Q4HR PRN Severe Pain Naloxone HCl 0.2 mg 05/26/22 02:44 Naloxone 0.4 Mg/Ml 1 Ml Vial IV Q2M PRN Opioid Reversal Nitroglycerin 0.4 mg 05/26/22 02:50 Nitroglycerin Sl Tabs 0.4 Mg Tab SUBLINGUAL Q5M PRN Chest Pain Non-Formulary Medication 0.25 mg 05/31/22 09:00 Semaglutide [Ozempic] SQ TU@0900 [facility] Psyllium Hydrophilic Mucilloid 6 gm 05/27/22 09:00 05/27/22 10:03 Psyllium Husk 100% 6 Gm Packet PO 6 gm DAILY@0900 [facility] Administration Rivaroxaban 20 mg 05/28/22 09:00 Rivaroxaban 20 Mg Tab PO DAILY@0900 [facility] Protocol Sertraline HCl 25 mg 05/26/22 21:00 05/26/22 21:56 Sertraline 25 Mg Tab PO 25 mg HS@2100 [facility] Administration Objective - Vital Signs Vital signs: Vital Signs Temp 98.7 F 05/27/22 07:00 Pulse 106 H 05/27/22 11:18 Resp 18 05/27/22 07:00 BP 123/64 05/27/22 07:00 Pulse Ox 99 05/27/22 07:00 FiO2 Intake & Output 05/26/22 05/27/22 05/27/22 18:59 06:59 18:59 Intake Total 118 Balance 118 Intake: Oral 118 Other: Voiding Method Bedside Commode Bedside Commode Bedpan Diaper Incontinent Incontinent # Voids 4 2 - Exam -GENERAL: The patient is awake but very drowsy, not in any acute distress. Well developed, well nourished. HEENT: Pupils are round and equally reacting to light. EOMI. No scleral icterus. No conjunctival pallor. Normocephalic, atraumatic. No pharyngeal erythema. No thyromegaly. CARDIOVASCULAR: S1 and S2 present. No murmurs, rubs, or gallops. PULMONARY: Chest is clear to auscultation, no wheezing or crackles. ABDOMEN: Soft, nontender, nondistended, normoactive bowel sounds. No palpable organomegaly. MUSCULOSKELETAL: No joint swelling or deformity. -EXTREMITIES: No cyanosis, clubbing, or pedal edema. Left leg is warm and swollen with fluctuant swelling on the front of the leg, mild erythema NEUROLOGICAL: Gross neurological examination did not reveal any focal deficits. SKIN: No rashes. no petechiae. - Labs CBC & Chem 7: 05/26/22 02:30 05/27/22 05:07 Labs: Abnormal Lab Results - Last 24 Hours (Table) 05/27/22 05/27/22 Range/Units 05:07 12:31 BUN 23 H (7-17) mg/dL Glucose 115 H (74-99) mg/dL POC Glucose (mg/dL) 176 H (70-110) mg/dL Calcium 8.3 L (8.4-10.2) mg/dL Microbiology - Last 24 Hours (Table) 05/26/22 02:40 Blood Culture - Preliminary Blood No Growth after 24 hours 05/26/22 02:30 Blood Culture - Preliminary Blood No Growth after 24 hours Assessment and Plan Assessment: Left lower extremity cellulitis with local soft tissue swelling in the left anterior leg , status post fall History of right lower extremity DVT maintained on Xarelto Metabolic encephalopathy secondary to above COPD history, not in exacerbation Diabetes mellitus, type II, insulin-dependent History of heart failure, not in exacerbation Hyperlipidemia Hypertension Kidney cancer status post nephrectomy on the right Bilateral diabetic retinopathy with legal blindness History of obstructive sleep apnea and does not use CPAP in the outpatient setting Plan: This is a pleasant 77 years old female who presents with a fall and left leg cellulitis Continue with IV vancomycin Monitor labs Start half-normal saline at 40 mL per hour Orthopedic team at the surgical intervention Neurology cleared The patient Labs and medication were reviewed.. Continue same treatment. Continue with symptomatic treatment. Resume home medication. Monitor lytes and vitals. DVT and GI prophylaxis. Further recommendations as per clinical course of the patient DVT prophylaxis: Xarelto GI Prophylaxis: Pepcid PT/OT: Recommended [facility], [facility] Prognosis is guarded
[2022-05-27] MEDS: VANCOMYCIN 1,500 MG in SODIUM CHLORIDE 0.9% 250 ML IVPB SCH (22:38)
[2022-05-27] MEDS: SODIUM CHLORIDE 0.45% 1,000 ML IV SCH (22:38)
[2022-05-27] MEDS: FAMOTIDINE 20 MG/2 ML VIAL IV SCH (22:48)
[2022-05-27] MEDS: LORATADINE 10 MG TAB PO SCH (22:49)
[2022-05-27] MEDS: ATORVASTATIN 20 MG TAB PO SCH (22:49)
[2022-05-27] MEDS: MELATONIN 3 MG TABLET PO SCH (22:50)
[2022-05-27] MEDS: SERTRALINE 25 MG TAB PO SCH (22:50)
[2022-05-28 07:14] LABS: Glucose,Whole Blood 142 mg/dL (70-110)
[2022-05-28] MEDS: INSULIN ASPART (NovoLOG) 100 UNIT/ML VIAL SQ SCH ×4 (07:31→20:11)
[2022-05-28] MEDS: SYMBICORT 160-4.5 MCG INHALER INHALATION SCH ×2 (07:32→20:35)
[2022-05-28] MEDS: ASPIRIN 81 MG PO SCH (07:37)
[2022-05-28] MEDS: FERROUS SULFATE 325 MG TAB PO SCH ×3 (07:37→17:45)
[2022-05-28] MEDS: PSYLLIUM HUSK 100% 6 GM PACKET PO SCH (07:46)
--- NOTE | 2022-05-28 08:26 | US ---
EXAMINATION TYPE: US extremity nonvasc mass LT DATE OF EXAM: 05/28/2022 COMPARISON: NONE CLINICAL HISTORY: r/u abscess , others. Area of swelling and redness left anterior lower leg Soft tissue edema visualized left anterior lower leg, without evidence of sizeable fluid collection IMPRESSION: As above
[2022-05-28] MEDS ORDERED: RIVAROXABAN 20 MG TAB PO SCH (09:00)
[2022-05-28 09:02] LABS: African American GFR (CKD) 69.3 (60.0-200.0); Anion Gap 8.9 mmol/L (10.00-18.00); BUN/Creat Ratio 21.9 Ratio (12.00-20.00); Blood Urea Nitrogen 20.1 mg/dL (9.0-27.0); Calcium 8.7 mg/dL (8.7-10.3); Magnesium 1.4 mg/dL (1.5-2.4); Non-African American GFR(CKD) 59.8 (60.0-200.0); Potassium 4.2 mmol/L (3.5-5.5)
[2022-05-28 09:58] LABS: Basophils # (A) 0.05 X 10*3/uL (0.00-0.10); Basophils % (A) 0.5 %; Eosinophils # (A) 0.59 X 10*3/uL (0.04-0.35); Eosinophils % (A) 5.9 %; Immature Grans, Automated 0.3 %; Lymphocytes # (A) 1.49 X 10*3/uL (0.90-5.00); Lymphocytes % (A) 14.8 %; Monocytes # (A) 0.95 X 10*3/uL (0.20-1.00); Monocytes % (A) 9.5 %; NRBC Per 100 WBC 0 /100 WBCS (0.0-0.0); Neutrophils # (A) 6.94 X 10*3/uL (1.80-7.70)
[2022-05-28 09:59] LABS: HCT 24.1 % (37.2-46.3); HGB 6.9 g/dL (12.0-15.0); MCH 25.9 pg (27.0-32.0); MCHC 28.6 g/dL (32.0-37.0); MCV 90.6 fL (80.0-97.0); Mean Platelet Volume 9.3 fL (9.5-12.2); Platelet Count 292 X 10*3/uL (140-440); RBC 2.66 X 10*6/uL (4.10-5.20); RDW 14.9 % (11.5-14.5); WBC 10.05 X 10*3/uL (4.50-10.00)
[2022-05-28 10:00] LABS: Macrocytosis (M) 2+
[2022-05-28 12:45] LABS: Glucose,Whole Blood 170 mg/dL (70-110)
--- NOTE | 2022-05-28 13:13 | XR ---
EXAMINATION TYPE: XR chest 1V portable DATE OF EXAM: 05/28/2022 HISTORY: Shortness of breath. COMPARISON: 05/09/2022 TECHNIQUE: Single view of the chest is submitted. FINDINGS: Demonstrated are scattered senescent parenchymal change. Chronic elevation left hemidiaphragm. There is cardiomegaly with pulmonary venous congestion and inte rstitial prominence. Hilar and mediastinal structures are within normal limits. Degenerative changes are seen of the dorsal spine. IMPRESSION: 1. Chronic elevation left hemidiaphragm. There is cardiomegaly with pulmonary venous congestion and interstitial prominence.
[2022-05-28 13:58] LABS: Appearance,Urine Clear (Clear); Bacteria,Urine Rare /hpf; Bilirubin,Urine Negative (Negative); Blood,Urine Negative (Negative); Color,Urine Yellow; Glucose,Urine (UA) Negative (Negative); Hyaline Casts,Urine 1 /lpf (0-2); Ketones,Urine Negative (Negative); Leukocyte Esterase,Urine Small (Negative); Mucus,Urine Rare /hpf; Nitrite,Urine Negative (Negative); PH, Urine 5.5 (5.0-8.0); Protein,Urine Trace (Negative); RBC,Urine <1 /hpf (0-5); Specific Gravity,Urine 1.014 (1.001-1.035); Squamous Epithelial Cell,Urine 3 /hpf (0-4); Urobilinogen,Urine <2.0 mg/dL (<2.0); WBC,Urine 4 /hpf (0-5)
[2022-05-28] MEDS: PANTOPRAZOLE 40 MG/10 ML VIAL IVP SCH (16:17)
[2022-05-28 16:33] LABS: HCT 25.8 % (34.0-46.0); HGB 7.5 gm/dL (11.4-16.0); Hypochromasia Marked; MCH 26.5 pg (25.0-35.0); MCHC 29.3 g/dL (31.0-37.0); MCV 90.8 fL (80.0-100.0); Mean Platelet Volume 8.6; Platelet Count 290 k/uL (150-450); RBC 2.84 m/uL (3.80-5.40); RDW 14.9 % (11.5-15.5); WBC 7.9 k/uL (3.8-10.6)
[2022-05-28] MEDS ORDERED: LORazepam 1 MG/0.5 ML VIAL IM STA (17:16)
[2022-05-28 17:44] LABS: Glucose,Whole Blood 135 mg/dL (70-110)
[2022-05-28] MEDS: FAMOTIDINE 20 MG/2 ML VIAL IV SCH (17:46)
--- NOTE | 2022-05-28 18:50 | P.PN ---
Subjective This is a 77-year-old female who was brought to the emergency department for increasing left lower extremity pain with swelling and redness and concerns for possible DVT. Patient is a resident at [facility] on [facility] and follows with in the outpatient setting. Questionable early onset of cellulitis given the erythema and swelling. Patient was started on broad-spectrum antibiotics and will consult infectious disease. Patient apparently had a fall and there is a small bruise noted on the patellar area of the left lower extremity and extreme sensitivity to any palpation of the prepatellar area and will obtain CT of the lower extremity. Patient did have venous Doppler ordered but refused. 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 Patient reports that she chronically wears oxygen at the facility and does have history of obstructive sleep apnea although does not wear the CPAP. Patient also with chronic constipation and frequently uses bowel regimen. Patient is a diabetic and normally uses long-acting insulin along with 3 times a day insulins on sliding scale although patient is refusing Accu-Cheks and insulin administration. Patient reports she was not noted to be on any blood thinners although her documentation reports she takes 20 mg of Xarelto daily. Labs: WBC was 10.9, hemoglobin is 8.8, platelets are 326, sodium 134, potassium 4.2, BUN 34, creatinine 1.14, lactic acid 1.9 05/27/2022 Patient today was more drowsy than this morning, HER-2 waking up but responds to verbal stimuli as before she goes back to sleep. CT of the brain is negative for acute process on Xarelto has resumed. Neurology evaluation is appreciated, no intracranial lesion. Patient remains with IV vancomycin for her left leg cellulitis, she has some soft tissue swelling CT was negative for an abscess or swelling however clinically there is some fluctuant swelling on the anterior leg and because was starting Xarelto without to check ultrasound first. WBCs 10.9, hemoglobin 8.8. She is not eating much and Levemir was placed on hold and she is continued on gentle hydration 05/28/2022 Patient today is more awake and alert however the evening she became more confused and combative as part of her delirium most likely secondary to her left lower extremity cellulitis. Her left leg is more swollen and tender today is distal warm. We checked ultrasound of the we[place] showing no abscess but there is extensive edema. Urine analysis repeated and at that was negative for infection so most likely she is only has left leg cellulitis. She is confused and she received 1 dose of Ativan to help her come down, no EKG therefore we tried to keep away from antipsychotic. Hemoglobin today dropped 8.8 down to 6.9, however patient was asymptomatic and vitals stable. Repeat hemoglobin 7.5. Recent 1 dose of Xarelto today. Then it was held as well as aspirin. Orthopedic team on the case. Patient on IV vancomycin per ID team Start D5 half-normal saline at 40 mL/h today. Check labs tomorrow Daughter at bedside and I talked to the patient and daughter about her problems and management plan and they are agreement with it after they verbalized understanding. Also they are aware we need to hold anticoagulation and she will be at risk of DVT and PE and/or . We will consult hematology team to help with anticoagulation treatment Objective - Vital Signs Vital signs: Vital Signs Temp 98.7 F 05/28/22 15:00 Pulse 99 05/28/22 15:00 Resp 20 05/28/22 15:00 BP 138/67 05/28/22 15:00 Pulse Ox 98 05/28/22 15:00 FiO2 Intake & Output 05/27/22 05/28/22 05/28/22 18:59 06:59 18:59 Intake Total 118 Balance 118 Intake: Oral 118 Other: Voiding Method Bedside Commode Bedside Commode Diaper Diaper Incontinent Incontinent # Voids 1 1 3 # Bowel Movements 1 - Exam -GENERAL: The patient is awake but very drowsy, not in any acute distress. Well developed, well nourished. HEENT: Pupils are round and equally reacting to light. EOMI. No scleral icterus. No conjunctival pallor. Normocephalic, atraumatic. No pharyngeal erythema. No thyromegaly. CARDIOVASCULAR: S1 and S2 present. No murmurs, rubs, or gallops. PULMONARY: Chest is clear to auscultation, no wheezing or crackles. ABDOMEN: Soft, nontender, nondistended, normoactive bowel sounds. No palpable organomegaly. MUSCULOSKELETAL: No joint swelling or deformity. -EXTREMITIES: No cyanosis, clubbing, or pedal edema. Left leg is warm and swollen with fluctuant swelling on the front of the leg, mild erythema NEUROLOGICAL: Gross neurological examination did not reveal any focal deficits. SKIN: No rashes. no petechiae. - Labs CBC & Chem 7: 05/28/22 16:19 05/28/22 04:32 Labs: Abnormal Lab Results - Last 24 Hours (Table) 05/27/22 05/28/22 05/28/22 Range/Units 05:07 04:32 04:32 WBC 10.05 H (4.50-10.00) X 10*3/uL RBC 2.66 L (4.10-5.20) X 10*6/uL Hgb 6.9 L* (12.0-15.0) g/dL Hct 24.1 L (37.2-46.3) % MCH 25.9 L (27.0-32.0) pg MCHC 28.6 L (32.0-37.0) g/dL RDW 14.9 H (11.5-14.5) % MPV 9.3 L (9.5-12.2) fL Eosinophils # 0.59 H (0.04-0.35) X 10*3/uL Carbon Dioxide 28.0 H (20.0-27.5) mmol/L Anion Gap 8.90 L (10.00-18.00) mmol/L Est GFR (CKD-EPI)NonAf 59.8 L (60.0-200.0) BUN/Creatinine Ratio 21.90 H (12.00-20.00) Ratio Glucose 124 H (70-110) mg/dL POC Glucose (mg/dL) (70-110) mg/dL Magnesium 1.4 L (1.5-2.4) mg/dL TSH 0.344 L (0.350-5.500) uIU/mL Urine Protein (Negative) Ur Leukocyte Esterase (Negative) Urine Bacteria (None) /hpf Urine Mucus (None) /hpf Crossmatch 05/28/22 05/28/22 05/28/22 Range/Units 07:13 12:43 13:43 WBC (4.50-10.00) X 10*3/uL RBC (4.10-5.20) X 10*6/uL Hgb (12.0-15.0) g/dL Hct (37.2-46.3) % MCH (27.0-32.0) pg MCHC (32.0-37.0) g/dL RDW (11.5-14.5) % MPV (9.5-12.2) fL Eosinophils # (0.04-0.35) X 10*3/uL Carbon Dioxide (20.0-27.5) mmol/L Anion Gap (10.00-18.00) mmol/L Est GFR (CKD-EPI)NonAf (60.0-200.0) BUN/Creatinine Ratio (12.00-20.00) Ratio Glucose (70-110) mg/dL POC Glucose (mg/dL) 142 H 170 H (70-110) mg/dL Magnesium (1.5-2.4) mg/dL TSH (0.350-5.500) uIU/mL Urine Protein Trace H (Negative) Ur Leukocyte Esterase Small H (Negative) Urine Bacteria Rare H (None) /hpf Urine Mucus Rare H (None) /hpf Crossmatch 05/28/22 05/28/22 05/28/22 Range/Units 16:19 16:19 17:43 WBC (4.50-10.00) X 10*3/uL RBC 2.84 L (4.10-5.20) X 10*6/uL Hgb 7.5 L (12.0-15.0) g/dL Hct 25.8 L (37.2-46.3) % MCH (27.0-32.0) pg MCHC 29.3 L (32.0-37.0) g/dL RDW (11.5-14.5) % MPV (9.5-12.2) fL Eosinophils # (0.04-0.35) X 10*3/uL Carbon Dioxide (20.0-27.5) mmol/L Anion Gap (10.00-18.00) mmol/L Est GFR (CKD-EPI)NonAf (60.0-200.0) BUN/Creatinine Ratio (12.00-20.00) Ratio Glucose (70-110) mg/dL POC Glucose (mg/dL) 135 H (70-110) mg/dL Magnesium (1.5-2.4) mg/dL TSH (0.350-5.500) uIU/mL Urine Protein (Negative) Ur Leukocyte Esterase (Negative) Urine Bacteria (None) /hpf Urine Mucus (None) /hpf Crossmatch See Detail Microbiology - Last 24 Hours (Table) 05/26/22 02:40 Blood Culture - Preliminary Blood No Growth after 48 hours 05/26/22 02:30 Blood Culture - Preliminary Blood No Growth after 48 hours Assessment and Plan Assessment: Left lower extremity cellulitis with local soft tissue swelling in the left anterior leg , status post fall Anemia with acute drop of hemoglobin History of right lower extremity DVT maintained on Xarelto Metabolic encephalopathy secondary to above COPD history, not in exacerbation Diabetes mellitus, type II, insulin-dependent History of heart failure, not in exacerbation Hyperlipidemia Hypertension Kidney cancer status post nephrectomy on the right Bilateral diabetic retinopathy with legal blindness History of obstructive sleep apnea and does not use CPAP in the outpatient setting Plan: This is a pleasant 77 years old female who presents with a fall and left leg cellulitis Continue with IV vancomycin Monitor labs Start half-normal saline at 40 mL per hour Orthopedic team recommends no surgical intervention Cold Xarelto and aspirin and consult hematology team. Monitor hemoglobin Labs and medication were reviewed.. Continue same treatment. Continue with symptomatic treatment. Resume home medication. Monitor lytes and vitals. DVT and GI prophylaxis. Further recommendations as per clinical course of the patient DVT prophylaxis: Xarelto (on hold for acute anemia) GI Prophylaxis: Pepcid PT/OT: Recommended [facility], [facility] Prognosis is guarded
[2022-05-28 20:08] LABS: Glucose,Whole Blood 138 mg/dL (70-110)
[2022-05-28] MEDS: VANCOMYCIN 1,500 MG in SODIUM CHLORIDE 0.9% 250 ML IVPB SCH (20:10)
[2022-05-28] MEDS: SODIUM CHLORIDE 0.45% 1,000 ML IV SCH (20:10)
[2022-05-28] MEDS: SODIUM CHLORIDE 0.9% 1,000 ML IV SCH (20:11)
[2022-05-28] MEDS: LACTULOSE 20 GM/30 ML CUP PO SCH (20:14)
[2022-05-28] MEDS: SERTRALINE 25 MG TAB PO SCH (20:15)
[2022-05-28] MEDS: MELATONIN 3 MG TABLET PO SCH (20:15)
[2022-05-28] MEDS: LORATADINE 10 MG TAB PO SCH (20:15)
[2022-05-28] MEDS: ATORVASTATIN 20 MG TAB PO SCH (20:15)
[2022-05-28] MEDS ORDERED: QUEtiapine 25 MG TAB PO STA (23:20)
--- NOTE | 2022-05-29 00:46 | P.PN ---
Subjective Progress Note Date: 05/28/22 Principal diagnosis: Left lower extremity cellulitis Patient is a 77 year old female with a recent history of for follow-up subsequently presented to hospital with left lower leg pain swelling and redness CT has been negative for any abscess. On today's evaluation that is 05/28/2022, the patient remains to be afebrile, the patient is still complaining of pain to the left lower extremity pain and swelling however has slightly decreased, the patient denies having any chest pain or shortness of breath or cough no abdominal pain or diarrhea, patient has pulled out her IV, currently no iv access Objective - Vital Signs Vital signs: Vital Signs Temp 97.9 F 05/28/22 07:00 Pulse 108 H 05/28/22 07:00 Resp 18 05/28/22 07:00 BP 114/73 05/28/22 07:00 Pulse Ox 95 05/28/22 07:00 FiO2 Intake & Output 05/27/22 05/28/22 05/28/22 18:59 06:59 18:59 Intake Total 118 Balance 118 Intake: Oral 118 Other: Voiding Method Bedside Commode Bedside Commode Diaper Diaper Incontinent Incontinent # Voids 1 1 # Bowel Movements 1 - Exam GENERAL DESCRIPTION: An elderly female lying in bed in no distress RESPIRATORY SYSTEM: Unlabored breathing , decreased breath sounds at bases HEART: S1 S2 regular rate and rhythm , ABDOMEN: Soft , no tenderness EXTREMITIES: Left lower extremity just below the knee did have an area of swelling induration and tenderness - Labs CBC & Chem 7: 05/28/22 16:19 05/28/22 04:32 Labs: Abnormal Lab Results - Last 24 Hours (Table) 05/27/22 05/27/22 05/27/22 Range/Units 05:07 12:31 16:59 WBC (4.50-10.00) X 10*3/uL RBC (4.10-5.20) X 10*6/uL Hgb (12.0-15.0) g/dL Hct (37.2-46.3) % MCH (27.0-32.0) pg MCHC (32.0-37.0) g/dL RDW (11.5-14.5) % MPV (9.5-12.2) fL Eosinophils # (0.04-0.35) X 10*3/uL ABG pCO2 (35-45) mmHg ABG pO2 (83-108) mmHg ABG HCO3 (21-25) mmol/L ABG Total CO2 (19-24) mmol/L ABG O2 Saturation (94-97) % Carbon Dioxide (20.0-27.5) mmol/L Anion Gap (10.00-18.00) mmol/L Est GFR (CKD-EPI)NonAf (60.0-200.0) BUN/Creatinine Ratio (12.00-20.00) Ratio Glucose (70-110) mg/dL POC Glucose (mg/dL) 176 H 292 H (70-110) mg/dL Magnesium (1.5-2.4) mg/dL TSH 0.344 L (0.350-5.500) uIU/mL 05/27/22 05/28/22 05/28/22 Range/Units 17:19 04:32 04:32 WBC 10.05 H (4.50-10.00) X 10*3/uL RBC 2.66 L (4.10-5.20) X 10*6/uL Hgb 6.9 L* (12.0-15.0) g/dL Hct 24.1 L (37.2-46.3) % MCH 25.9 L (27.0-32.0) pg MCHC 28.6 L (32.0-37.0) g/dL RDW 14.9 H (11.5-14.5) % MPV 9.3 L (9.5-12.2) fL Eosinophils # 0.59 H (0.04-0.35) X 10*3/uL ABG pCO2 50 H (35-45) mmHg ABG pO2 116 H (83-108) mmHg ABG HCO3 31 H (21-25) mmol/L ABG Total CO2 32 H (19-24) mmol/L ABG O2 Saturation 99.2 H (94-97) % Carbon Dioxide 28.0 H (20.0-27.5) mmol/L Anion Gap 8.90 L (10.00-18.00) mmol/L Est GFR (CKD-EPI)NonAf 59.8 L (60.0-200.0) BUN/Creatinine Ratio 21.90 H (12.00-20.00) Ratio Glucose 124 H (70-110) mg/dL POC Glucose (mg/dL) (70-110) mg/dL Magnesium 1.4 L (1.5-2.4) mg/dL TSH (0.350-5.500) uIU/mL 05/28/22 Range/Units 07:13 WBC (4.50-10.00) X 10*3/uL RBC (4.10-5.20) X 10*6/uL Hgb (12.0-15.0) g/dL Hct (37.2-46.3) % MCH (27.0-32.0) pg MCHC (32.0-37.0) g/dL RDW (11.5-14.5) % MPV (9.5-12.2) fL Eosinophils # (0.04-0.35) X 10*3/uL ABG pCO2 (35-45) mmHg ABG pO2 (83-108) mmHg ABG HCO3 (21-25) mmol/L ABG Total CO2 (19-24) mmol/L ABG O2 Saturation (94-97) % Carbon Dioxide (20.0-27.5) mmol/L Anion Gap (10.00-18.00) mmol/L Est GFR (CKD-EPI)NonAf (60.0-200.0) BUN/Creatinine Ratio (12.00-20.00) Ratio Glucose (70-110) mg/dL POC Glucose (mg/dL) 142 H (70-110) mg/dL Magnesium (1.5-2.4) mg/dL TSH (0.350-5.500) uIU/mL Microbiology - Last 24 Hours (Table) 05/26/22 02:40 Blood Culture - Preliminary Blood No Growth after 48 hours 05/26/22 02:30 Blood Culture - Preliminary Blood No Growth after 48 hours Assessment and Plan (1) Cellulitis of left leg Current Visit: Yes Status: Acute Code(s): L03.116 - CELLULITIS OF LEFT LOWER LIMB SNOMED Code(s): 076955942 Plan: 1patient presented to hospital with left leg pain and swelling in this patient did have recent history of trauma fall patient swelling redness is most concentrated at the prepatellar bursal area concerning for prepatellar bursitis likely from gram-positive skin mary keeping in mind assisted patient will need to call for resistant gram-positive such as MRSA. 2CT of the knee and lower extremity complicated with evidence of small suprapatellar bursal fluid collection concerning for bursitis versus hematoma. 3orthopedics has seen the patient recommending no debridement or drainage 4patient has lost IV access if it cannot be established vancomycin will be discontinued and the patient was started on oral Keflex at the same time however has been advised to frandy the area off swelling and induration followed by Renny wrap to give the swelling down Time with Patient: Less than 30
[2022-05-29] MEDS: SODIUM CHLORIDE 0.45% 1,000 ML IV SCH (05:48)
[2022-05-29] MEDS: SYMBICORT 160-4.5 MCG INHALER INHALATION SCH ×2 (07:03→19:02)
[2022-05-29 07:40] LABS: Glucose,Whole Blood 118 mg/dL (70-110)
[2022-05-29] MEDS: LACTULOSE 20 GM/30 ML CUP PO SCH ×2 (07:50→20:50)
[2022-05-29] MEDS: PANTOPRAZOLE 40 MG/10 ML VIAL IVP SCH (07:50)
[2022-05-29] MEDS: CEPHALEXIN 500 MG CAP PO SCH ×3 (07:51→20:50)
[2022-05-29] MEDS: PSYLLIUM HUSK 100% 6 GM PACKET PO SCH (07:51)
[2022-05-29] MEDS: FERROUS SULFATE 325 MG TAB PO SCH ×3 (07:51→17:39)
[2022-05-29] MEDS: INSULIN ASPART (NovoLOG) 100 UNIT/ML VIAL SQ SCH ×4 (07:53→20:50)
[2022-05-29] MEDS ORDERED: IPRATROPIUM-ALBUTEROL 3 ML NEB INHALATION PRN (09:21)
[2022-05-29 09:36] LABS: Basophils % (A) 1 %; Eosinophils # (A) 0.4 k/uL (0-0.7); Eosinophils % (A) 5 %; HCT 26.8 % (34.0-46.0); HGB 7.8 gm/dL (11.4-16.0); Hypochromasia Marked; Lymphocytes # (A) 1.4 k/uL (1.0-4.8); Lymphocytes % (A) 17 %; MCH 26.4 pg (25.0-35.0); MCHC 29.3 g/dL (31.0-37.0); Mean Platelet Volume 8.2; Monocytes # (A) 0.7 k/uL (0-1.0); Monocytes % (A) 8 %; Neutrophils # (A) 5.8 k/uL (1.3-7.7); Neutrophils % (A) 69 %; Platelet Count 323 k/uL (150-450); RBC 2.98 m/uL (3.80-5.40); WBC 8.4 k/uL (3.8-10.6)
[2022-05-29] MEDS: ALBUTEROL NEBULIZED 2.5 MG/3 ML INHALATION PRN (09:37)
[2022-05-29] MEDS: FUROSEMIDE 10 MG/ML 4 ML VIAL IV SCH ×2 (09:52→20:50)
--- NOTE | 2022-05-29 10:05 | P.PN ---
Subjective Progress Note Date: 05/29/22 Principal diagnosis: Left knee pain The patient is a 77-year-old female with a past medical history including kidney cancer, heart failure, COPD, diabetes mellitus, neuropathy of the hands and feet, and recent DVT, who presented to the emergency department from [facility] on [facility] for further evaluation of her left lower extremity. There has been an increasing pain and swelling. There was a concern for a DVT. The patient is currently on Xarelto. According to nursing staff, the patient has had 4 recent falls. The patient is very confused and has been trying to get out of bed all day. The patient states that her knee is very painful. This morning, she states the leg is feeling ok. No new complaints today. Objective - Vital Signs Vital signs: Vital Signs Temp 97.9 F 05/29/22 07:00 Pulse 102 H 05/29/22 09:46 Resp 20 05/29/22 07:00 BP 128/79 05/29/22 07:00 Pulse Ox 95 05/29/22 07:00 FiO2 Intake & Output 05/28/22 05/29/22 05/29/22 18:59 06:59 18:59 Output Total 0 Balance 0 Output: Emesis 0 Other: Voiding Method Bedside Commode Diaper Incontinent # Voids 3 3 - Exam The patient is a 77-year-old female in no acute distress. She is sleepy this morning and oriented 1. Exam of the left lower extremity reveals slight erythema to the anterior inferior knee area. There is swelling to the suprapatellar area. There is slight warmth noted. There is pain on palpation to the area. No open wounds noted. The skin is not taut over the area. There is skin wrinkling to the left lower leg and foot, that appears to be swelling that has improved recently. Renny wrap is present but is loose. She has good foot and ankle motion. Calf is soft and slightly tender. Some numbness to the foot which is chronic. Circulatory status is intact. - Labs CBC & Chem 7: 05/29/22 07:17 05/29/22 10:15 Labs: Abnormal Lab Results - Last 24 Hours (Table) 05/28/22 05/28/22 05/28/22 Range/Units 04:32 12:43 13:43 WBC 10.05 H (4.50-10.00) X 10*3/uL RBC 2.66 L (4.10-5.20) X 10*6/uL Hgb 6.9 L* (12.0-15.0) g/dL Hct 24.1 L (37.2-46.3) % MCH 25.9 L (27.0-32.0) pg MCHC 28.6 L (32.0-37.0) g/dL RDW 14.9 H (11.5-14.5) % MPV 9.3 L (9.5-12.2) fL Eosinophils # 0.59 H (0.04-0.35) X 10*3/uL POC Glucose (mg/dL) 170 H (70-110) mg/dL Urine Protein Trace H (Negative) Ur Leukocyte Esterase Small H (Negative) Urine Bacteria Rare H (None) /hpf Urine Mucus Rare H (None) /hpf Crossmatch 05/28/22 05/28/22 05/28/22 Range/Units 16:19 16:19 17:43 WBC (4.50-10.00) X 10*3/uL RBC 2.84 L (4.10-5.20) X 10*6/uL Hgb 7.5 L (12.0-15.0) g/dL Hct 25.8 L (37.2-46.3) % MCH (27.0-32.0) pg MCHC 29.3 L (32.0-37.0) g/dL RDW (11.5-14.5) % MPV (9.5-12.2) fL Eosinophils # (0.04-0.35) X 10*3/uL POC Glucose (mg/dL) 135 H (70-110) mg/dL Urine Protein (Negative) Ur Leukocyte Esterase (Negative) Urine Bacteria (None) /hpf Urine Mucus (None) /hpf Crossmatch See Detail 05/28/22 05/29/22 05/29/22 Range/Units 20:07 07:17 07:38 WBC (4.50-10.00) X 10*3/uL RBC 2.98 L (4.10-5.20) X 10*6/uL Hgb 7.8 L (12.0-15.0) g/dL Hct 26.8 L (37.2-46.3) % MCH (27.0-32.0) pg MCHC 29.3 L (32.0-37.0) g/dL RDW (11.5-14.5) % MPV (9.5-12.2) fL Eosinophils # (0.04-0.35) X 10*3/uL POC Glucose (mg/dL) 138 H 118 H (70-110) mg/dL Urine Protein (Negative) Ur Leukocyte Esterase (Negative) Urine Bacteria (None) /hpf Urine Mucus (None) /hpf Crossmatch Microbiology - Last 24 Hours (Table) 05/26/22 02:30 Blood Culture - Preliminary Blood No Growth after 72 hours 05/26/22 02:40 Blood Culture - Preliminary Blood No Growth after 72 hours Assessment and Plan (1) Fall Current Visit: Yes Status: Acute Code(s): W19.XXXA - UNSPECIFIED FALL, INITIAL ENCOUNTER SNOMED Code(s): 8097872 (2) Suprapatellar bursitis of left knee Current Visit: Yes Status: Acute Code(s): M70.52 - OTHER BURSITIS OF KNEE, LEFT KNEE SNOMED Code(s): 3023559765140335 Plan: The clinical findings were discussed with the patient and the nursing staff. The patient was seen with Dr. Torres this morning. No surgical intervention is planned at this time. The suprapatellar bursa appears stable at this time. If the area continues to improve, no further treatment is needed. If the area worsens an aspiration or I&D may be needed. Continue IV antibiotics. Compression with an renny wrap may be helpful if the patient can tolerate it. We will continue to follow peripherally at this time and will make further recommendations as needed. Pt seen and examined today. Agree with above. Suggest continuing gentle compression. At this point, an aspiration is unlikely to be helpful and an I&D will likely just release the compression that is staunching the bleeding.
[2022-05-29 10:38] LABS: African American GFR (CKD) 76 (>60 ml/min/1.73 sqM); Anion Gap 6 mmol/L; Blood Urea Nitrogen 18 mg/dL (7-17); Calcium 9.2 mg/dL (8.4-10.2); Carbon Dioxide 31 mmol/L (22-30); Chloride 100 mmol/L (98-107); Glucose 133 mg/dL (74-99); Magnesium 1.6 mg/dL (1.6-2.3); Non-African American GFR(CKD) 66 (>60 ml/min/1.73 sqM); Potassium 4.2 mmol/L (3.5-5.1); Sodium 137 mmol/L (137-145)
--- NOTE | 2022-05-29 11:31 | P.CONS ---
History of Present Illness - Reason for Consult Consult date: 05/29/22 Left lower extremity cellulitis - History of Present Illness The patient is a 77-year-old -[place] lady with multiple medical problems, including morbid obesity, osteoarthritis, hypertension and underlying CAD as well as chronic the limited mobility. Patient also has a history of renal cell cancer treated with right sided nephrectomy several years ago. - The patient was diagnosed with right lower extremity DVT and bilateral PE in 08/31. Review of records from that time indicates that this is felt to be due to chronically low morbidity. The patient was recommended and the correlation with Xarelto, on which she was apparently continuing. She came into the hospital this time because of left lower extremity cellulitis, most prominent around the knee region. The patient had developed redness and swelling, which is progressive, after she sustained a small abrasion in that area post a fall. The patient is currently a resident at an [facility]. They were concerned about DVT, and sent the patient in. The patient refused to have a repeat Doppler but had lower extremity computed tomography scan as well as ultrasound, that showed significant soft tissue swelling, that appear to be more consistent with cell ulitis. She was started on broad spectrum antibiotics. His hemoglobin was in 7 hyponatremia on admission and fell to 6.9. However repeat was back in the 70s due to which she did not require transfusion. The patient did not tumor being on anticoagulation, but her records from the [facility] confirmed that she was on Xarelto 20 mg daily. Antibiotic regulation was held due to the drop in hemoglobin, and consult placed. - The patient had repeat Doppler in 01/03, which showed no DVT. - Principally showed chronic white matter changes. The patient has been confused, which is felt to be due to the infection. She was not able to provide any history, and available history was obtained from the EMR, as well as from nursing. No obvious bleeding has been noted Review of Systems Constitutional: Reports fatigue, Reports weakness Eyes: bilateral decreased vision (legally blind) Ears: deny: decreased hearing, ear discharge, earache, tinnitus Ears, nose, mouth and throat: Denies headache, Denies sore throat Cardiovascular: Reports decreased exercise tolerance Respiratory: Denies cough Gastrointestinal: Denies abdominal pain, Denies diarrhea, Denies nausea, Denies vomiting Genitourinary: Denies dysuria, Denies hematuria Menstruation: Reports postmenopausal Musculoskeletal: Reports as per HPI, Reports muscle weakness Musculoskeletal: left: knee pain Integumentary: Reports as per HPI, Reports color changes Neurological: Reports weakness, Reports visual changes Psychiatric: Reports confusion Endocrine: Reports high blood sugars Hematologic/Lymphatic: Reports as per HPI Past Medical History Past Medical History: Cancer, Heart Failure, COPD, Diabetes Mellitus, Eye Disorder, Hyperlipidemia, Hypertension, Pneumonia Additional Past Medical History / Comment(s): Kidney cancer post-nephrectomy on the right, IDDM type II, neuropathy bilateral hands/feet, bilateral diabetic retinopathy with legal blindness in the past but vision better since eye injections, recent diagnosis of DVT of the right lower extremity, bronchitis, home oxygen at 3L/NC ATC, chronic elevation of the left hemidiaphragm, obstructive sleep apnea currently not using device, thoracolumbar kyphoscoliosis, constipation History of Any Multi-Drug Resistant Organisms: None Reported Past Surgical History: Appendectomy, Back Surgery, Hernia Repair, Joint Replacement, Tubal Ligation Additional Past Surgical History / Comment(s): Low back surgery, total R shoulder, R nephrectomy, several abdominal hernia surgeries, colonoscopy Past Anesthesia/Blood Transfusion Reactions: No Reported Reaction Additional Past Anesthesia/Blood Transfusion Reaction / Comm: Pt has received blood in past without reaction. Past Psychological History: No Psychological Hx Reported Smoking Status: Never smoker Past Alcohol Use History: None Reported Past Drug Use History: None Reported - Past Family History Mother Family Medical History: Cancer Father Family Medical History: Unable to Obtain Additional Family Medical History / Comment(s): Father when pt was 1 yrs old. Medications and Allergies Home Medications Medication Instructions Recorded Confirmed Type Atorvastatin [Lipitor] 20 mg PO HS@209903/28/21 05/26/22 History Furosemide [Lasix] 40 mg PO DAILY@0900 03/28/21 05/26/22 History Acetaminophen Tab [Tylenol] 650 mg PO Q4H PRN 06/25/21 05/26/22 History Cetirizine HCl 10 mg PO HS@209906/25/21 05/26/22 History Rivaroxaban [Xarelto] 20 mg PO DAILY@0906/25/21 05/26/22 History metFORMIN HCL [Glucophage] 1,000 mg PO BID@0900,2100 06/25/21 05/26/22 History Mag Hydrox/Aluminum Hyd/Simeth 10 ml PO Q4H PRN 08/05/21 05/26/22 History [Mylanta Maximum Strength Liq] Melatonin 3 mg PO HS@209908/05/21 05/26/22 History Psyllium Husk 100% [Metamucil 6 gm PO DAILY@89908/05/21 05/26/22 History Packet] Semaglutide [Ozempic] 0.25 mg SQ TU@89908/05/21 05/26/22 History Insulin Lispro [humaLOG Kwikpen] See Protocol SQ AC-TID 11/03/21 05/26/22 History Nitroglycerin Sl Tabs [Nitrostat] 0.4 mg SL Q5M PRN 11/03/21 05/26/22 History Sertraline [Zoloft] 25 mg PO HS@209911/03/21 05/26/22 History Albuterol Nebulized [Ventolin 2.5 mg INHALATION RT-Q6H PRN 03/11/22 05/26/22 History Nebulized] Aspirin 81 mg PO DAILY@89903/11/22 05/26/22 History Budesonide-Formot 160-4.5 Mcg 2 puff INHALATION RT-BID@899,209903/11/22 0 05/26/22 History [Symbicort 160-4.5 Mcg Inhaler] Docusate [Colace] 100 mg PO BID PRN 03/11/22 05/26/22 History Ferrous Sulfate [Iron (65 MG 325 mg PO BID@0900,209903/11/22 05/26/22 History Elemental)] Insulin Glargine,Hum.rec.anlog 12 unit SQ DAILY@89903/11/22 05/26/22 History [Lantus Solostar Pen] Lactulose 10 gm PO BID PRN 03/11/22 05/26/22 History Menthol [Biofreeze] 1 applic TOPICAL Q6H PRN 03/11/22 05/26/22 History guaiFENesin [guaiFENesin Oral 100 mg PO Q4H PRN 03/11/22 05/26/22 History Solution] Albuterol Inhaler [Ventolin Hfa 1 puff INHALATION RT-QID PRN 05/09/22 05/26/22 History Inhaler] Allergies Allergy/AdvReac Type Severity Reaction Status Date / Time rofecoxib [From Vioxx] AdvReac Confusion Verified 05/26/22 01:29 Physical Exam Vitals: Vital Signs Temp Pulse Pulse Resp BP Pulse Ox 05/29/22 09:46 102 H 05/29/22 09:37 101 H 05/29/22 07:00 97.9 F 96 20 128/79 95 05/29/22 02:26 97.9 F 90 18 116/69 5 L 05/28/22 19:16 99.4 F 104 H 24 139/80 96 05/28/22 15:00 98.7 F 99 20 138/67 98 Intake and Output 05/28/22 05/29/22 05/29/22 22:59 06:59 14:59 Output Total 0 550 Balance 0 -550 Output: Urine 550 Straight 550 Emesis 0 Other: Voiding Method Bedside Commode Bedside Commode Diaper Diaper Incontinent Incontinent # Voids 1 3 - Constitutional Lethargic and sleepy. Difficult to arouse. General appearance: no acute distress - EENT Eyes: EOMI ENT: hearing grossly normal, normal oropharynx - Neck Neck: no lymphadenopathy - Respiratory Respiratory: bilateral: CTA - Cardiovascular Rhythm: regular Heart sounds: normal: S1, S2 - Gastrointestinal General gastrointestinal: normal bowel sounds, soft - Integumentary Soft tissue swelling with redness involving the left knee Integumentary: cellulitis - Neurologic Vision cannot be assessed at this time. Known history of being legally blind. Other cranial nerves appear to be grossly intact. She is moving all 4 extremities - Musculoskeletal Musculoskeletal: generalized weakness, strength equal bilaterally - Psychiatric Patient only responds with "yes?" And her name is called out, but does not really were but otherwise. Very sleepy and difficult to arouse Results CBC & Chem 7: 05/29/22 07:17 05/29/22 10:15 Labs: Abnormal Lab Results - Last 24 Hours (Table) 05/28/22 05/28/22 05/28/22 Range/Units 12:43 13:43 16:19 RBC 2.84 L (3.80-5.40) m/uL Hgb 7.5 L (11.4-16.0) gm/dL Hct 25.8 L (34.0-46.0) % MCHC 29.3 L (31.0-37.0) g/dL Carbon Dioxide (22-30) mmol/L BUN (7-17) mg/dL Glucose (74-99) mg/dL POC Glucose (mg/dL) 170 H (70-110) mg/dL Urine Protein Trace H (Negative) Ur Leukocyte Esterase Small H (Negative) Urine Bacteria Rare H (None) /hpf Urine Mucus Rare H (None) /hpf Crossmatch 05/28/22 05/28/22 05/28/22 Range/Units 16:19 17:43 20:07 RBC (3.80-5.40) m/uL Hgb (11.4-16.0) gm/dL Hct (34.0-46.0) % MCHC (31.0-37.0) g/dL Carbon Dioxide (22-30) mmol/L BUN (7-17) mg/dL Glucose (74-99) mg/dL POC Glucose (mg/dL) 135 H 138 H (70-110) mg/dL Urine Protein (Negative) Ur Leukocyte Esterase (Negative) Urine Bacteria (None) /hpf Urine Mucus (None) /hpf Crossmatch See Detail 05/29/22 05/29/22 05/29/22 Range/Units 07:17 07:38 10:15 RBC 2.98 L (3.80-5.40) m/uL Hgb 7.8 L (11.4-16.0) gm/dL Hct 26.8 L (34.0-46.0) % MCHC 29.3 L (31.0-37.0) g/dL Carbon Dioxide 31 H (22-30) mmol/L BUN 18 H (7-17) mg/dL Glucose 133 H (74-99) mg/dL POC Glucose (mg/dL) 118 H (70-110) mg/dL Urine Protein (Negative) Ur Leukocyte Esterase (Negative) Urine Bacteria (None) /hpf Urine Mucus (None) /hpf Crossmatch Microbiology - Last 24 Hours (Table) 05/26/22 02:30 Blood Culture - Preliminary Blood No Growth after 72 hours 05/26/22 02:40 Blood Culture - Preliminary Blood No Growth after 72 hours Chest x-ray: report reviewed CT scan - abdomen: report reviewed CT scan - chest: report reviewed CT scan - pelvis: report reviewed Venous US: report reviewed Assessment and Plan (1) Anemia Narrative/Plan: Patient has had a chronic anemia with previous admission she had declined to 6.9 with levels in the 7-8 range on subsequent testing - The concern in this case is regarding bleeding, which could preclude use of anticoagulation. However in this patient's case, hypoproliferative anemia, due to underlying CKD, worsened by acute infection is clinically equally likely - Continue to monitor CBC and transfuse to keep hemoglobin greater than 7 - Anemia workup will be ordered. Current Visit: Yes Status: Acute Code(s): D64.9 - ANEMIA, UNSPECIFIED SNOMED Code(s): 737743780 (2) VTE (venous thromboembolism) Narrative/Plan: Patient had a prior history of right lower extremity DVT and bilateral PE diagnosed in 08/31. This is felt to be due to chronically decreased mobility. The patient's risk factor in that regardless persistent, with actually further decrease in mobility. At that time she was in assisted living, but is now in an ECF. In addition she has higher risk for VTE currently, due to hospitalization, IVs, as well as ongoing inflammation - As it is quite possible that her drop in hemoglobin is not due to bleeding, at this time I will place her on prophylactic anticoagulation at least. If anemia workup is negative for evidence of bleeding, and indicates hypoproliferative condition, anticoagulation can be resumed Current Visit: Yes Status: Acute Code(s): I82.90 - ACUTE EMBOLISM AND THROMB OSIS OF UNSPECIFIED VEIN SNOMED Code(s): 777108949
[2022-05-29 12:07] LABS: Glucose,Whole Blood 131 mg/dL (70-110)
[2022-05-29] MEDS: ENOXAPARIN 40 MG/0.4 ML SYRINGE SQ SCH (13:07)
[2022-05-29 14:28] LABS: African American GFR (CKD) 73.7 (60.0-200.0); Anion Gap 11.9 mmol/L (10.00-18.00); BUN/Creat Ratio 19.61 Ratio (12.00-20.00); Blood Urea Nitrogen 17.1 mg/dL (9.0-27.0); C Reactive Protein 8.8 mg/dL (0.00-0.80); Calcium 8.8 mg/dL (8.7-10.3); Carbon Dioxide 24.9 mmol/L (20.0-27.5); Magnesium 1.7 mg/dL (1.5-2.4); Non-African American GFR(CKD) 63.6 (60.0-200.0); Potassium 4.2 mmol/L (3.5-5.5)
[2022-05-29 17:02] LABS: Glucose,Whole Blood 113 mg/dL (70-110)
[2022-05-29 17:14] LABS: Protein, Total 6.3 g/dL (6.2-8.2)
[2022-05-29 17:21] LABS: Reticulocyte % 2.58 % (0.10-1.80)
[2022-05-29 18:10] LABS: % Iron Saturation 11.18 (12.00-45.00)
--- NOTE | 2022-05-29 18:14 | P.PN ---
Subjective This is a 77-year-old female who was brought to the emergency department for increasing left lower extremity pain with swelling and redness and concerns for possible DVT. Patient is a resident at [facility] and follows with in the outpatient setting. Questionable early onset of cellulitis given the erythema and swelling. Patient was started on broad-spectrum antibiotics and will consult infectious disease. Patient apparently had a fall and there is a small bruise noted on the patellar area of the left lower extremity and extreme sensitivity to any palpation of the prepatellar area and will obtain CT of the lower extremity. Patient did have venous Doppler ordered but refused. 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 Patient reports that she chronically wears oxygen at the facility and does have history of obstructive sleep apnea although does not wear the CPAP. Patient also with chronic constipation and frequently uses bowel regimen. Patient is a diabetic and normally uses long-acting insulin along with 3 times a day insulins on sliding scale although patient is refusing Accu-Cheks and insulin administration. Patient reports she was not noted to be on any blood thinners although her documentation reports she takes 20 mg of Xarelto daily. Labs: WBC was 10.9, hemoglobin is 8.8, platelets are 326, sodium 134, potassium 4.2, BUN 34, creatinine 1.14, lactic acid 1.9 05/27/2022 Patient today was more drowsy than this morning, HER-2 waking up but responds to verbal stimuli as before she goes back to sleep. CT of the brain is negative for acute process on Xarelto has resumed. Neurology evaluation is appreciated, no intracranial lesion. Patient remains with IV vancomycin for her left leg cellulitis, she has some soft tissue swelling CT was negative for an abscess or swelling however clinically there is some fluctuant swelling on the anterior leg and because was starting Xarelto without to check ultrasound first. WBCs 10.9, hemoglobin 8.8. She is not eating much and Levemir was placed on hold and she is continued on gentle hydration 05/28/2022 Patient today is more awake and alert however the evening she became more confused and combative as part of her delirium most likely secondary to her left lower extremity cellulitis. Her left leg is more swollen and tender today is distal warm. We checked ultrasound of the weiner showing no abscess but there is extensive edema. Urine analysis repeated and at that was negative for infection so most likely she is only has left leg cellulitis. She is confused and she received 1 dose of Ativan to help her come down, no EKG therefore we tried to keep away from antipsychotic. Hemoglobin today dropped 8.8 down to 6.9, however patient was asymptomatic and vitals stable. Repeat hemoglobin 7.5. Recent 1 dose of Xarelto today. Then it was held as well as aspirin. Orthopedic team on the case. Patient on IV vancomycin per ID team Start D5 half-normal saline at 40 mL/h today. Check labs tomorrow Daughter at bedside and I talked to the patient and daughter about her problems and management plan and they are agreement with it after they verbalized understanding. Also they are aware we need to hold anticoagulation and she will be at risk of DVT and PE and/or . We will consult hematology team to help with anticoagulation treatment 05/29/2022 patient is more sleepy today because she said received Ativan 2 mg and Seroquel yesterday for agitation. Her agitation is mostly secondary to fluid overload. IV fluids was discontinued and Lasix is started. Patient with more than 500 mL of urine output however she had to be straight cathed Left lower extremity cellulitis is significantly improved and antibiotics was adjusted to Keflex. ID team. Hematology input is appreciated. Her Xarelto is on hold for possible bleed and workup is in progress. Patient is placed on Lovenox prophylactic dose 40 mg daily for now with close monitoring. Objective - Vital Signs Vital signs: Vital Signs Temp 97.9 F 05/29/22 07:00 Pulse 102 H 05/29/22 09:46 Resp 20 05/29/22 07:00 BP 128/79 05/29/22 07:00 Pulse Ox 95 05/29/22 07:00 FiO2 Intake & Output 05/28/22 05/29/22 05/29/22 18:59 06:59 18:59 Output Total 0 Balance 0 Output: Emesis 0 Other: Voiding Method Bedside Commode Diaper Incontinent # Voids 3 3 - Exam -GENERAL: The patient is drowsy, not in any acute distress. Well developed, well nourished. HEENT: Pupils are round and equally reacting to light. EOMI. No scleral icterus. No conjunctival pallor. Normocephalic, atraumatic. No pharyngeal erythema. No thyromegaly. CARDIOVASCULAR: S1 and S2 present. No murmurs, rubs, or gallops. -PULMONARY: Chest is clear to auscultation, no . Bilateral basal crepitation ABDOMEN: Soft, nontender, nondistended, normoactive bowel sounds. No palpable organomegaly. MUSCULOSKELETAL: No joint swelling or deformity. -EXTREMITIES: No cyanosis, clubbing, . Improving bilateral leg swelling. Left leg cellulitis significantly improved and confined to small area in the upper left leg anteriorly NEUROLOGICAL: Gross neurological examination did not reveal any focal deficits. SKIN: No rashes. no petechiae. - Labs CBC & Chem 7: 05/29/22 07:05/29/22 10:15 Labs: Abnormal Lab Results - Last 24 Hours (Table) 05/28/22 05/28/22 05/28/22 Range/Units 12:43 13:43 16:19 RBC 2.84 L (3.80-5.40) m/uL Hgb 7.5 L (11.4-16.0) gm/dL Hct 25.8 L (34.0-46.0) % MCHC 29.3 L (31.0-37.0) g/dL POC Glucose (mg/dL) 170 H (70-110) mg/dL Urine Protein Trace H (Negative) Ur Leukocyte Esterase Small H (Negative) Urine Bacteria Rare H (None) /hpf Urine Mucus Rare H (None) /hpf Crossmatch 05/28/22 05/28/22 05/28/22 Range/Units 16:19 17:43 20:07 RBC (3.80-5.40) m/uL Hgb (11.4-16.0) gm/dL Hct (34.0-46.0) % MCHC (31.0-37.0) g/dL POC Glucose (mg/dL) 135 H 138 H (70-110) mg/dL Urine Protein (Negative) Ur Leukocyte Esterase (Negative) Urine Bacteria (None) /hpf Urine Mucus (None) /hpf Crossmatch See Detail 05/29/22 05/29/22 Range/Units 07:17 07:38 RBC 2.98 L (3.80-5.40) m/uL Hgb 7.8 L (11.4-16.0) gm/dL Hct 26.8 L (34.0-46.0) % MCHC 29.3 L (31.0-37.0) g/dL POC Glucose (mg/dL) 118 H (70-110) mg/dL Urine Protein (Negative) Ur Leukocyte Esterase (Negative) Urine Bacteria (None) /hpf Urine Mucus (None) /hpf Crossmatch Microbiology - Last 24 Hours (Table) 05/26/22 02:30 Blood Culture - Preliminary Blood No Growth after 72 hours 05/26/22 02:40 Blood Culture - Preliminary Blood No Growth after 72 hours Assessment and Plan Assessment: Left lower extremity cellulitis with local soft tissue swelling in the left anterior leg , status post fall Anemia with acute drop of hemoglobin. [place] to be secondary to chronic disease and infection, rule out bleed History of right lower extremity DVT maintained on Xarelto and PE Possible acute CHF exacerbation, unknown ejection fraction Metabolic encephalopathy secondary to above COPD history, not in exacerbation Diabetes mellitus, type II, insulin-dependent History of heart failure, not in exacerbation Hyperlipidemia Hypertension Kidney cancer status post nephrectomy on the right Bilateral diabetic retinopathy with legal blindness History of obstructive sleep apnea and does not use CPAP in the outpatient setting Plan: This is a pleasant 77 years old female who presents with a fall and left leg cellulitis Continue with IV vancomycin Monitor labs Start half-normal saline at 40 mL per hour Orthopedic team recommends no surgical intervention Cold Xarelto and aspirin and consult hematology team. Monitor hemoglobin Labs and medication were reviewed.. Continue same treatment. Continue with symptomatic treatment. Resume home medication. Monitor lytes and vitals. DVT and GI prophylaxis. Further recommendations as per clinical course of the patient DVT prophylaxis: Xarelto (on hold for acute anemia) GI Prophylaxis: Pepcid PT/OT: Recommended ECF, [facility] Prognosis is guarded
[2022-05-29 20:38] LABS: Glucose,Whole Blood 200 mg/dL (70-110)
[2022-05-29] MEDS: SERTRALINE 25 MG TAB PO SCH (20:50)
[2022-05-29] MEDS: ATORVASTATIN 20 MG TAB PO SCH (20:50)
[2022-05-29] MEDS: MELATONIN 3 MG TABLET PO SCH (20:50)
[2022-05-29] MEDS ORDERED: HALOPERIDOL LACTATE 5 MG/ML 1 ML VIAL IM STA (23:21)
[2022-05-30] MEDS: SODIUM CHLORIDE 0.9% 1,000 ML IV SCH (02:54)
[2022-05-30 06:57] LABS: Glucose,Whole Blood 166 mg/dL (70-110)
[2022-05-30] MEDS: SYMBICORT 160-4.5 MCG INHALER INHALATION SCH ×2 (07:42→19:52)
[2022-05-30] MEDS: INSULIN ASPART (NovoLOG) 100 UNIT/ML VIAL SQ SCH ×4 (09:16→21:15)
[2022-05-30] MEDS: ENOXAPARIN 40 MG/0.4 ML SYRINGE SQ SCH (09:16)
[2022-05-30] MEDS: FERROUS SULFATE 325 MG TAB PO SCH ×3 (09:17→17:44)
[2022-05-30] MEDS: CEPHALEXIN 500 MG CAP PO SCH ×3 (09:17→21:14)
[2022-05-30] MEDS: PSYLLIUM HUSK 100% 6 GM PACKET PO SCH (09:17)
[2022-05-30] MEDS: LACTULOSE 20 GM/30 ML CUP PO SCH ×2 (09:22→21:14)
[2022-05-30] MEDS: FUROSEMIDE 10 MG/ML 4 ML VIAL IV SCH (11:09)
[2022-05-30] MEDS: PANTOPRAZOLE 40 MG/10 ML VIAL IVP SCH (11:09)
[2022-05-30 11:37] LABS: Basophils # (A) 0.1 k/uL (0-0.2); Basophils % (A) 1 %; Eosinophils # (A) 0.4 k/uL (0-0.7); Eosinophils % (A) 4 %; HCT 26.6 % (34.0-46.0); HGB 7.9 gm/dL (11.4-16.0); Hypochromasia Marked; Lymphocytes # (A) 1.2 k/uL (1.0-4.8); Lymphocytes % (A) 13 %; MCH 27.3 pg (25.0-35.0); MCHC 29.8 g/dL (31.0-37.0); MCV 91.5 fL (80.0-100.0); Mean Platelet Volume 6.8; Monocytes # (A) 0.6 k/uL (0-1.0); Monocytes % (A) 6 %; Neutrophils % (A) 75 %; Platelet Count 342 k/uL (150-450); RBC 2.91 m/uL (3.80-5.40); RDW 14.8 % (11.5-15.5); WBC 9.4 k/uL (3.8-10.6)
[2022-05-30 11:49] LABS: Free Kappa Lt Chain Qnt, Serum 4.74 mg/dL (0.33-1.94)
[2022-05-30 11:58] LABS: Glucose,Whole Blood 167 mg/dL (70-110)
[2022-05-30 12:33] LABS: Albumin 2.74 g/dL (3.80-4.90); Gamma Globulin 1.38 g/dL (0.70-1.50)
[2022-05-30] MEDS: PANTOPRAZOLE 40 MG TABLET PO SCH (13:14)
[2022-05-30] MEDS: FUROSEMIDE 40 MG TAB PO SCH (13:14)
--- NOTE | 2022-05-30 15:14 | P.PN ---
Subjective Progress Note Date: 05/30/22 Patient more awake today, nursing at bedside Objective - Vital Signs Vital signs: Vital Signs Temp 98.2 F 05/30/22 07:00 Pulse 120 H 05/30/22 07:51 Resp 22 05/30/22 07:51 BP 144/77 05/30/22 07:00 Pulse Ox 100 05/30/22 07:00 FiO2 Intake & Output 05/29/22 05/30/22 05/30/22 18:59 06:59 18:59 Output Total 1677 600 Balance -1677 -600 Output: Urine 1100 600 Straight 550 Post Void Residual 577 Other: Voiding Method External Catheter External Catheter # Voids 1 2 - Exam - Constitutional Lethargic and sleepy. Difficult to arouse. General appearance: no acute distress - EENT Eyes: EOMI ENT: hearing grossly normal, normal oropharynx - Neck Neck: no lymphadenopathy - Respiratory Respiratory: bilateral: CTA - Cardiovascular Rhythm: regular Heart sounds: normal: S1, S2 - Gastrointestinal General gastrointestinal: normal bowel sounds, soft - Integumentary Soft tissue swelling with redness involving the left knee Integumentary: cellulitis - Neurologic Vision cannot be assessed at this time. Known history of being legally blind. Other cranial nerves appear to be grossly intact. She is moving all 4 extremities - Musculoskeletal Musculoskeletal: generalized weakness, strength equal bilaterally - Psychiatric Patient only responds with "yes?" And her name is called out, but does not really were but otherwise. Very sleepy and difficult to arouse - Labs CBC & Chem 7: 05/30/22 11:12 05/29/22 10:15 Labs: Abnormal Lab Results - Last 24 Hours (Table) 05/28/22 05/29/22 05/29/22 Range/Units 20:15 07:17 07:17 RBC 2.98 L (3.80-5.40) m/uL Hgb 7.8 L (11.4-16.0) gm/dL Hct 26.8 L (34.0-46.0) % MCHC 29.3 L (31.0-37.0) g/dL ESR (0-20) mm/hr Retic Count (0.10-1.80) % Carbon Dioxide (22-30) mmol/L BUN (7-17) mg/dL Glucose 120 H (70-110) mg/dL POC Glucose (mg/dL) (70-110) mg/dL Iron (50-170) ug/dL % Saturation (12.00-45.00) Transferrin (204.0-354.0) mg/dL C-Reactive Protein 8.80 H (0.00-0.80) mg/dL Crossmatch See Detail 05/29/22 05/29/22 05/29/22 Range/Units 10:15 10:15 11:56 RBC (3.80-5.40) m/uL Hgb (11.4-16.0) gm/dL Hct (34.0-46.0) % MCHC (31.0-37.0) g/dL ESR 102 H (0-20) mm/hr Retic Count 2.58 H (0.10-1.80) % Carbon Dioxide 31 H (22-30) mmol/L BUN 18 H (7-17) mg/dL Glucose 133 H (70-110) mg/dL POC Glucose (mg/dL) (70-110) mg/dL Iron (50-170) ug/dL % Saturation (12.00-45.00) Transferrin (204.0-354.0) mg/dL C-Reactive Protein (0.00-0.80) mg/dL Crossmatch 05/29/22 05/29/22 05/29/22 Range/Units 11:56 12:05 17:01 RBC (3.80-5.40) m/uL Hgb (11.4-16.0) gm/dL Hct (34.0-46.0) % MCHC (31.0-37.0) g/dL ESR (0-20) mm/hr Retic Count (0.10-1.80) % Carbon Dioxide (22-30) mmol/L BUN (7-17) mg/dL Glucose (70-110) mg/dL POC Glucose (mg/dL) 131 H 113 H (70-110) mg/dL Iron 30 L (50-170) ug/dL % Saturation 11.18 L (12.00-45.00) Transferrin 191.0 L (204.0-354.0) mg/dL C-Reactive Protein (0.00-0.80) mg/dL Crossmatch 05/29/22 05/30/22 Range/Units 20:37 06:55 RBC (3.80-5.40) m/uL Hgb (11.4-16.0) gm/dL Hct (34.0-46.0) % MCHC (31.0-37.0) g/dL ESR (0-20) mm/hr Retic Count (0.10-1.80) % Carbon Dioxide (22-30) mmol/L BUN (7-17) mg/dL Glucose (70-110) mg/dL POC Glucose (mg/dL) 200 H 166 H (70-110) mg/dL Iron (50-170) ug/dL % Saturation (12.00-45.00) Transferrin (204.0-354.0) mg/dL C-Reactive Protein (0.00-0.80) mg/dL Crossmatch Microbiology - Last 24 Hours (Table) 05/26/22 02:40 Blood Culture - Preliminary Blood No Growth after 96 hours 05/26/22 02:30 Blood Culture - Preliminary Blood No Growth after 96 hours Assessment and Plan Plan: Chest x-ray: report reviewed CT scan - abdomen: report reviewed CT scan - chest: report reviewed CT scan - pelvis: report reviewed Venous US: report reviewed Assessment and Plan (1) Anemia Narrative/Plan: Hemoglobin improved 7.9 after ttranfusion with levels in the 7-8 range - If anemia workup is negative for evidence of bleeding the patient can be p laced back on full dose anticoagulation - No monoclonal protein identified - Continue to monitor CBC and transfuse to keep hemoglobin greater than 7 - Anemia work-up negative this far - Rec trial AC therapy and monitor for recurrent drop in Hemoglobin prior to discharge Current Visit: Yes Status: Acute Code(s): D64.9 - ANEMIA, UNSPECIFIED SNOMED Code(s): 295458973 (2) VTE (venous thromboembolism) Narrative/Plan: Patient had a prior history of right lower extremity DVT and bilateral PE diagnosed in 08/31. This is felt to be due to chronically decreased mobility. The patient's risk factor in that regardless persistent, with actually further decrease in mobility. At that time she was in assisted living, but is now in an ECF. In addition she has higher risk for VTE currently, due to hospitalization, IVs, as well as ongoing inflammation - As it is quite possible that her drop in hemoglobin is not due to bleeding, at this time I will place her on prophylactic anticoagulation at least. If anemia workup is negative for evidence of bleeding, and indicates hypoproliferative condition, anticoagulation can be resumed Current Visit: Yes Status: Acute Code(s): I82.90 - ACUTE EMBOLISM AND THROMBOSIS OF UNSPECIFIED VEIN SNOMED Code(s): 322958903
[2022-05-30 17:14] LABS: Glucose,Whole Blood 146 mg/dL (70-110)
--- NOTE | 2022-05-30 19:43 | P.PN ---
Subjective Progress Note Date: 05/30/22 his is a 77-year-old female who was brought to the emergency department for increasing left lower extremity pain with swelling and redness and concerns for possible DVT. Patient is a resident at [facility] and follows with in the outpatient setting. Questionable early onset of cellulitis given the erythema and swelling. Patient was started on broad-spectrum antibiotics and will consult infectious disease. Patient apparently had a fall and there is a small bruise noted on the patellar area of the left lower extremity and extreme sensitivity to any palpation of the prepatellar area and will obtain CT of the lower extremity. Patient did have venous Doppler ordered but refused. 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 Patient reports that she chronically wears oxygen at the facility and does have history of obstructive sleep apnea although does not wear the CPAP. Patient also with chronic constipation and frequently uses bowel regimen. Patient is a diabetic and normally uses long-acting insulin along with 3 times a day insulins on sliding scale although patient is refusing Accu-Cheks and insulin administration. Patient reports she was not noted to be on any blood thinners although her documentation reports she takes 20 mg of Xarelto daily. Labs: WBC was 10.9, hemoglobin is 8.8, platelets are 326, sodium 134, potassium 4.2, BUN 34, creatinine 1.14, lactic acid 1.9 05/27/2022 Patient today was more drowsy than this morning, HER-2 waking up but responds to verbal stimuli as before she goes back to sleep. CT of the brain is negative for acute process on Xarelto has resumed. Neurology evaluation is appreciated, no intracranial lesion. Patient remains with IV vancomycin for her left leg cellulitis, she has some soft tissue swelling CT was negative for an abscess or swelling however clinically there is some fluctuant swelling on the anterior leg and because was starting Xarelto without to check ultrasound first. WBCs 10.9, hemoglobin 8.8. She is not eating much and Levemir was placed on hold and she is continued on gentle hydration 05/28/2022 Patient today is more awake and alert however the evening she became more confused and combative as part of her delirium most likely secondary to her left lower extremity cellulitis. Her left leg is more swollen and tender today is distal warm. We checked ultrasound of the weiner showing no abscess but there is extensive edema. Urine analysis repeated and at that was negative for infection so most likely she is only has left leg cellulitis. She is confused and she received 1 dose of Ativan to help her come down, no EKG therefore we tried to keep away from antipsychotic. Hemoglobin today dropped 8.8 down to 6.9, however patient was asymptomatic and vitals stable. Repeat hemoglobin 7.5. Recent 1 dose of Xarelto today. Then it was held as well as aspirin. Orthopedic team on the case. Patient on IV vancomycin per ID team Start D5 half-normal saline at 40 mL/h today. Check labs tomorrow Daughter at bedside and I talked to the patient and daughter about her problems and management plan and they are agreement with it after they verbalized understanding. Also they are aware we need to hold anticoagulation and she will be at risk of DVT and PE and/or . We will consult hematology team to help with anticoagulation treatment 05/29/2022 patient is more sleepy today because she said received Ativan 2 mg and Seroquel yesterday for agitation. Her agitation is mostly secondary to fluid overload. IV fluids was discontinued and Lasix is started. Patient with more than 500 mL of urine output however she had to be straight cathed Left lower extremity cellulitis is significantly improved and antibiotics was adjusted to Keflex. ID team. Hematology input is appreciated. Her Xarelto is on hold for possible bleed and workup is in progress. Patient is placed on Lovenox prophylactic dose 40 mg daily for now with close monitoring. 05/30/2022 Patient is seen in follow-up this morning much more awake and alert although continues with confusion appears to be her baseline. Anticoagulation of Xarelto currently on hold and patient is maintained on subcutaneous Lovenox. Left lower extremity prepatellar area appears to be more pronounced likely a hematoma collection and recommending Renny wrap to the left lower extremity from the toes up to the knees and elevating while at rest. Orthopedics Has been evaluating the patient daily and recommending conservative management. Will continue Lovenox for now and slowly transition to Xarelto once clearing of the hematoma has resolved. Patient currently with no IV access and maintained on oral Keflex with anxiety following an patient remains afebrile. Patient also takes Lasix oral daily and will resume. review of systems: Unable to completely obtain as patient continues to be confused Active Medications Acetaminophen (Acetaminophen Tab 325 Mg Tab) 650 mg PO Q6HR PRN PRN Reason: Mild Pain or Fever > 100.5 Acetaminophen (Acetaminophen Tab 325 Mg Tab) 650 mg PO Q4H PRN PRN Reason: Pain Al Hydroxide/Mg Hydroxide (Mag Hydrox/Al Hydrox/Simeth 30 Ml Cup) 30 ml PO Q4H PRN PRN Reason: gerd Albuterol Sulfate (Albuterol Nebulized 2.5 Mg/3 Ml) 2.5 mg INHALATION RT-Q6H PRN PRN Reason: Shortness Of Breath Last Admin: 05/29/22 09:37 Dose: 2.5 mg Albuterol Sulfate (Albuterol Hfa Inhaler) 1 puff INHALATION RT-QID PRN PRN Reason: Shortness Of Breath Albuterol/Ipratropium (Ipratropium-Albuterol 3 Ml Neb) 3 ml INHALATION RT-Q2H PRN PRN Reason: Shortness Of Breath Or Wheezing Atorvastatin Calcium (Atorvastatin 20 Mg Tab) 20 mg PO HS@2100 [facility] Last Admin: 05/29/22 20:50 Dose: 20 mg Budesonide/Formoterol Fumarate (Symbicort 160-4.5 Mcg Inhaler) 2 puff INHALATION RT-BID [facility] Last Admin: 05/30/22 07:42 Dose: Not Given Cephalexin (Cephalexin 500 Mg Cap) 500 mg PO TID [facility]; Protocol Last Admin: 05/30/22 09:17 Dose: 500 mg Docusate Sodium (Docusate 100 Mg Cap) 100 mg PO BID PRN PRN Reason: Constipation Enoxaparin Sodium (Enoxaparin 40 Mg/0.4 Ml Syringe) 40 mg SQ DAILY [facility] Last Admin: 05/30/22 09:16 Dose: 40 mg Ferrous Sulfate (Ferrous Sulfate 325 Mg Tab) 325 mg PO TID-W/MEALS [facility] Last Admin: 05/30/22 13:14 Dose: 325 mg Furosemide (Furosemide 40 Mg Tab) 40 mg PO DAILY [facility] Last Admin: 05/30/22 13:14 Dose: 40 mg Guaifenesin (Guaifenesin Syrup 100mg/5ml 200 Mg/10 Ml Cup) 100 mg PO Q4H PRN PRN Reason: Cough Insulin Aspart (Insulin Aspart (Novolog) 100 Unit/Ml Vial) 0 unit SQ [facility]; Protocol Last Admin: 05/30/22 13:14 Dose: 2 unit Lactulose (Lactulose 20 Gm/30 Ml Cup) 10 gm PO BID [facility] Last Admin: 05/30/22 09:22 Dose: 10 gm Melatonin (Melatonin 3 Mg Tablet) 3 mg PO HS@2100 [facility] Last Admin: 05/29/22 20:50 Dose: 3 mg Methyl Salicylate (Methyl Salicylate/Menthol Cream 5 Oz) 1 applic TOPICAL Q6H PRN PRN Reason: PAINFUL JOINTS Morphine Sulfate (Morphine Sulfate 4 Mg/Ml Syringe) 4 mg IV Q4HR PRN PRN Reason: Severe Pain Naloxone HCl (Naloxone 0.4 Mg/Ml 1 Ml Vial) 0.2 mg IV Q2M PRN PRN Reason: Opioid Reversal Nitroglycerin (Nitroglycerin Sl Tabs 0.4 Mg Tab) 0.4 mg SUBLINGUAL Q5M PRN PRN Reason: Chest Pain Pantoprazole Sodium (Pantoprazole 40 Mg Tablet) 40 mg PO AC-BRKFST [facility] Last Admin: 05/30/22 13:14 Dose: 40 mg Psyllium Hydrophilic Mucilloid (Psyllium Husk 100% 6 Gm Packet) 6 gm PO DAILY@0900 [facility] Last Admin: 05/30/22 09:17 Dose: 6 gm Sertraline HCl (Sertraline 25 Mg Tab) 25 mg PO HS@2100 [facility] Last Admin: 05/29/22 20:50 Dose: 25 mg Physical exam: -GENERAL: The patient is awake, continues to be confused although responding better than yesterday, not in any acute distress. Well developed, well n ourished. HEENT: Pupils are round and equally reacting to light. EOMI. No scleral icterus. No conjunctival pallor. Normocephalic, atraumatic. No pharyngeal erythema. No thyromegaly. CARDIOVASCULAR: S1 and S2 present. No murmurs, rubs, or gallops. -PULMONARY: Chest is clear to auscultation, no wheezing noted, course rhonchi noted bilaterally ABDOMEN: Soft, obese, nontender, nondistended, normoactive bowel sounds. No palpable organomegaly. MUSCULOSKELETAL: No joint swelling or deformity. -EXTREMITIES: No cyanosis, clubbing, . Improving bilateral leg swelling. Left leg cellulitis significantly improved and confined to small area in the upper left leg anteriorly that appears to be more like a hematoma and less tender on palpation NEUROLOGICAL: Gross neurological examination did not reveal any focal deficits. diffuse weakness and agitated at times SKIN: No rashes. no petechiae except left adan area Assessment: Left lower extremity cellulitis with local soft tissue swelling in the left anterior leg , status post fall Anemia with acute drop of hemoglobin. Timbo to be secondary to chronic disease and infection, ruled out bleed History of right lower extremity DVT maintained on Xarelto and PE Possible acute CHF exacerbation, unknown ejection fraction Metabolic encephalopathy secondary to above COPD history, not in exacerbation Diabetes mellitus, type II, insulin-dependent Hyperlipidemia Hypertension Kidney cancer status post nephrectomy on the right Bilateral diabetic retinopathy with legal blindness History of obstructive sleep apnea and does not use CPAP in the outpatient setting DVT prophylaxis: Xarelto (on hold for acute anemia) GI Prophylaxis: Pepcid No code Plan: This is a pleasant 77 years old female who presents with a fall and left leg cellulitis with erythema and swelling and was evaluated by orthopedics and ID and is maintained on Keflex. No IV access and patient left knee somewhat improved and more localized to the prepatellar area likely a hematoma. Recommend to hold Xarelto and aspirin for now given the hematoma and is maintained on subcut lovenox, hematology team following. Patient is to return to [facility] on the [place] where she is a resident. Possible discharge in 24-48 hours. The impression and plan of care has been dictated by Melody Mclain, Nurse Practitioner as directed. Dr. Leanna MD I have performed a history and examination and MDM of this patient, discussed the same with the dictator, and agree with the dictator's assessment and plan as written ,documented as a scribe. Based on total visit time, I have performed more than 50% of the visit. Objective - Vital Signs Vital signs: Vital Signs Temp 98.2 F 05/30/22 07:00 Pulse 120 H 05/30/22 07:51 Resp 22 05/30/22 07:51 BP 144/77 05/30/22 07:00 Pulse Ox 100 05/30/22 07:00 FiO2 Intake & Output 05/29/22 05/30/22 05/30/22 18:59 06:59 18:59 Intake Total 100 Output Total 1677 600 Balance -1677 -600 100 Intake: Oral 100 Output: Urine 1100 600 Straight 550 Post Void Residual 577 Other: Voiding Method External Catheter External Catheter # Voids 1 2 - Labs CBC & Chem 7: 05/30/22 11:12 05/29/22 10:15 Labs: Abnormal Lab Results - Last 24 Hours (Table) 05/28/22 05/29/22 05/29/22 Range/Units 20:15 07:17 10:15 ESR 102 H (0-20) mm/hr Retic Count (0.10-1.80) % Carbon Dioxide (22-30) mmol/L BUN (7-17) mg/dL Glucose 120 H (70-110) mg/dL POC Glucose (mg/dL) (70-110) mg/dL Iron (50-170) ug/dL % Saturation (12.00-45.00) Transferrin (204.0-354.0) mg/dL C-Reactive Protein 8.80 H (0.00-0.80) mg/dL Crossmatch See Detail 05/29/22 05/29/22 05/29/22 Range/Units 10:15 11:56 11:56 ESR (0-20) mm/hr Retic Count 2.58 H (0.10-1.80) % Carbon Dioxide 31 H (22-30) mmol/L BUN 18 H (7-17) mg/dL Glucose 133 H (70-110) mg/dL POC Glucose (mg/dL) (70-110) mg/dL Iron 30 L (50-170) ug/dL % Saturation 11.18 L (12.00-45.00) Transferrin 191.0 L (204.0-354.0) mg/dL C-Reactive Protein (0.00-0.80) mg/dL Crossmatch 05/29/22 05/29/22 05/29/22 Range/Units 12:05 17:01 20:37 ESR (0-20) mm/hr Retic Count (0.10-1.80) % Carbon Dioxide (22-30) mmol/L BUN (7-17) mg/dL Glucose (70-110) mg/dL POC Glucose (mg/dL) 131 H 113 H 200 H (70-110) mg/dL Iron (50-170) ug/dL % Saturation (12.00-45.00) Transferrin (204.0-354.0) mg/dL C-Reactive Protein (0.00-0.80) mg/dL Crossmatch 05/30/22 Range/Units 06:55 ESR (0-20) mm/hr Retic Count (0.10-1.80) % Carbon Dioxide (22-30) mmol/L BUN (7-17) mg/dL Glucose (70-110) mg/dL POC Glucose (mg/dL) 166 H (70-110) mg/dL Iron (50-170) ug/dL % Saturation (12.00-45.00) Transferrin (204.0-354.0) mg/dL C-Reactive Protein (0.00-0.80) mg/dL Crossmatch Microbiology - Last 24 Hours (Table) 05/26/22 02:40 Blood Culture - Preliminary Blood No Growth after 96 hours 05/26/22 02:30 Blood Culture - Preliminary Blood No Growth after 96 hours
[2022-05-30] MEDS ORDERED: MELATONIN 3 MG TABLET PO SCH (21:00)
[2022-05-30 21:05] LABS: Glucose,Whole Blood 157 mg/dL (70-110)
[2022-05-30] MEDS: ATORVASTATIN 20 MG TAB PO SCH (21:14)
[2022-05-30] MEDS: SERTRALINE 25 MG TAB PO SCH (21:15)
[2022-05-31 07:15] LABS: Glucose,Whole Blood 163 mg/dL (70-110)
[2022-05-31 08:00] VITALS: RESP 22
[2022-05-31] MEDS ORDERED: NON FORMULARY DRUG (Semaglutide [Ozempic] 0.25 MG/0.2 ML Each) SQ SCH (09:00)
[2022-05-31 09:14] LABS: Basophils % (A) 1 %; Eosinophils # (A) 0.4 k/uL (0-0.7); Eosinophils % (A) 4 %; HCT 25.2 % (34.0-46.0); HGB 7.7 gm/dL (11.4-16.0); Hypochromasia Marked; Lymphocytes # (A) 1.1 k/uL (1.0-4.8); Lymphocytes % (A) 13 %; MCH 28.1 pg (25.0-35.0); MCHC 30.7 g/dL (31.0-37.0); MCV 91.4 fL (80.0-100.0); Mean Platelet Volume 6.9; Monocytes # (A) 0.5 k/uL (0-1.0); Monocytes % (A) 6 %; Neutrophils # (A) 5.9 k/uL (1.3-7.7); Neutrophils % (A) 73 %; Platelet Count 327 k/uL (150-450); RBC 2.76 m/uL (3.80-5.40); WBC 8.1 k/uL (3.8-10.6)
[2022-05-31 10:14] LABS: Glucose,Whole Blood 174 mg/dL (70-110)
[2022-05-31] MEDS: INSULIN ASPART (NovoLOG) 100 UNIT/ML VIAL SQ SCH ×2 (10:45→14:09)
[2022-05-31] MEDS: ENOXAPARIN 40 MG/0.4 ML SYRINGE SQ SCH (10:45)
[2022-05-31] MEDS: CEPHALEXIN 500 MG CAP PO SCH ×2 (10:46→15:17)
[2022-05-31] MEDS: FERROUS SULFATE 325 MG TAB PO SCH ×2 (10:46→14:09)
[2022-05-31] MEDS: MAGNESIUM OXIDE 400 MG TAB PO SCH ×2 (10:46→15:17)
[2022-05-31] MEDS: PANTOPRAZOLE 40 MG TABLET PO SCH (10:46)
[2022-05-31] MEDS: PSYLLIUM HUSK 100% 6 GM PACKET PO SCH (10:46)
[2022-05-31] MEDS: LACTULOSE 20 GM/30 ML CUP PO SCH (10:47)
[2022-05-31] MEDS: FUROSEMIDE 40 MG TAB PO SCH (10:47)
[2022-05-31] MEDS: SYMBICORT 160-4.5 MCG INHALER INHALATION SCH (11:15)
[2022-05-31 11:46] LABS: Free Lambda Lt Chain Qnt, Seru 4.02 mg/dL (0.57-2.63)
[2022-05-31 12:03] LABS: Glucose,Whole Blood 195 mg/dL (70-110)
[2022-05-31 13:50] VITALS: BP 128/52; PULSE 94; TEMP 98.4
[2022-05-31 13:59] LABS: Glucose,Whole Blood 183 mg/dL (70-110)
--- NOTE | 2022-05-31 14:38 | P.DS ---
Providers Date of admission: 05/30/22 09:02 Expected date of discharge: 05/31/22 Attending physician: Han Viveros Consults: 05/26/22 09:21 Consult Physician Urgent Consulting Provider: Tia Ivey Consult Reason/Comments: cellulitis Do you want consulting provider notified?: Yes 05/26/22 13:59 Consult Physician Urgent Consulting Provider: Marquise Obando Consult Reason/Comments: suprapatellar bursal fluid collection s/p fall on x arelto Do you want consulting provider notified?: Yes 05/27/22 12:59 Consult Physician Urgent Consulting Provider: Jeanine Aranda Consult Reason/Comments: drowsiness Do you want consulting provider notified?: Yes 05/28/22 12:30 Consult Physician Routine Consulting Provider: King Redmond Consult Reason/Comments: history DVT\PE, anemia Do you want consulting provider notified?: Yes Primary care physician: Caleb Tsang Hospital Course: Final diagnosis Left lower extremity cellulitis with local soft tissue swelling in the left anterior leg , status post fall Anemia with acute drop of hemoglobin. [place] to be secondary to chronic disease and infection, ruled out bleed History of right lower extremity DVT maintained on Xarelto and PE Possible acute CHF exacerbation, unknown ejection fraction Metabolic encephalopathy secondary to above COPD history, not in exacerbation Diabetes mellitus, type II, insulin-dependent Hyperlipidemia Hypertension Kidney cancer status post nephrectomy on the right Bilateral diabetic retinopathy with legal blindness History of obstructive sleep apnea and does not use CPAP in the outpatient setting DVT prophylaxis: Xarelto GI Prophylaxis: Pepcid No code Discharge disposition Patient is being discharged in a stable condition with guarded prognosis to [facility] on the [place] where she is a resident . Patient will follow-up with Dr. Tsang in the outpatient setting upon discharge. Patient is to continue with oral Keflex 500 mg 3 times a day for the next 1 week and then may discontinue. Total time taken is greater than 35 minutes. Hospital course This is a 77-year-old female who was recently admitted with left lower extremity possible cellulitis and also recent fall with left knee pain. Patient was evaluated by infectious disease along with orthopedics with no plans for surgical intervention. Most likely hematoma at the prepatellar area of the left lower extremity and recommend to continue with Renny wraps from the toes up to the knees and elevating while at rest. Patient is somewhat noncompliant with this and continued to remove her Renny wrap throughout the evening. Patient also was selected on treatments and refusing medications at times. Patient also removed IV lines and refused any further IV lines to be inserted. Magnesium was found to be 1.3 and have started the patient on magnesium oxide 3 times daily and recommend close outpatient follow-up with labs of CBC, BMP, magnesium in the next 2-3 days. Patient also continued to refuse insulins and was somewhat agreeable at times to at least assess Accu-Cheks. Recommend magnesium rich foods and continue with diabetic diet. Patient was seen and evaluated by hematology for anemia and was maintained on Lovenox and we'll transition back to Xarelto and recommend outpatient follow-up with conditioning room worker in the next 1-2 weeks. Patient is also normally continued on breathing inhalational treatments and inhalers and patient has been refusing her Symbicort inhaler throughout the whole hospitalization. Currently no reports of chest pain, worsening shortness of breath, or palpitations. Patient is afebrile. No reports of nausea or vomiting and patient is tolerating diet. Patient will be returning to [facility] on the [place] today. Guarded prognosis. Physical exam: Gen: This is a 77-year-old female awake, alert and oriented 2, well-developed, well-nourished, morbidly obese HEENT: Head is atraumatic, normocephalic. Pupils equal, round. Sclerae is anicteric. NECK: Supple. No JVD. No lymphadenopathy. No thyromegaly. LUNGS: Diminished breath sounds bilaterally with some mild expiratory wheezing noted. No intercostal retractions. HEART: Regular rate and rhythm. No murmur. ABDOMEN: Soft. Obese. Bowel sounds are present. No masses. No tenderness. EXTREMITIES: No pedal edema. No calf tenderness. Left lower extremity tenderness with redness and localized swelling of the prepatellar area that has improved NEUROLOGICAL: Patient is awake, alert and oriented x2. Diffusely weak. Please refer to medication reconciliation sheet for a list of medications. The impression and plan of care has been dictated by Melody Mclain, Nurse Practitioner as directed. Dr. Leanna MD I have performed a history and examination and MDM of this patient, discussed the same with the dictator, and agree with the dictator's assessment and plan as written ,documented as a scribe. Based on total visit time, I have performed more than 50% of the visit. Patient Condition at Discharge: Fair Plan - Discharge Summary New Discharge Prescriptions: New Cephalexin [Keflex] 500 mg PO TID 7 Days #21 cap Magnesium Oxide [Mag-Ox] 400 mg PO TID tab Pantoprazole [Protonix] 40 mg PO AC-BRKFST tab Ipratropium-Albuterol Nebulize [Duoneb 0.5 mg-3 mg/3 ml Soln] 3 ml INHALATION Q4H PRN each PRN Reason: Shortness Of Breath Or Wheezing Continue Acetaminophen Tab [Tylenol] 650 mg PO Q4H PRN PRN Reason: Pain metFORMIN HCL [Glucophage] 1,000 mg PO BID@0900,2100 Rivaroxaban [Xarelto] 20 mg PO DAILY@0900 Mag Hydrox/Aluminum Hyd/Simeth [Mylanta Maximum Strength Liq] 10 ml PO Q4H PRN PRN Reason: gerd Melatonin 3 mg PO HS@2100 Albuterol Nebulized [Ventolin Nebulized] 2.5 mg INHALATION RT-Q6H PRN PRN Reason: Shortness Of Breath Aspirin 81 mg PO DAILY@0900 Menthol [Biofreeze] 1 applic TOPICAL Q6H PRN PRN Reason: PAINFUL JOINTS Albuterol Inhaler [Ventolin Hfa Inhaler] 1 puff INHALATION RT-QID PRN PRN Reason: Shortness Of Breath Furosemide [Lasix] 40 mg PO DAILY@0900 Atorvastatin [Lipitor] 20 mg PO HS@2100 Cetirizine HCl 10 mg PO HS@2100 Psyllium Husk 100% [Metamucil Packet] 6 gm PO DAILY@0900 Semaglutide [Ozempic] 0.25 mg SQ TU@0900 Sertraline [Zoloft] 25 mg PO HS@2100 Nitroglycerin Sl Tabs [Nitrostat] 0.4 mg SL Q5M PRN PRN Reason: Chest Pain Insulin Lispro [humaLOG Kwikpen] See Protocol SQ AC-TID Budesonide-Formot 160-4.5 Mcg [Symbicort 160-4.5 Mcg Inhaler] 2 puff INHALATION RT-BID@0900,2100 Docusate [Colace] 100 mg PO BID PRN PRN Reason: Constipation Ferrous Sulfate [Iron (65 MG Elemental)] 325 mg PO BID@899,2099 guaiFENesin [guaiFENesin Oral Solution] 100 mg PO Q4H PRN PRN Reason: Cough Insulin Glargine,Hum.rec.anlog [Lantus Solostar Pen] 12 unit SQ DAILY@899 Lactulose 10 gm PO BID PRN PRN Reason: Constipation Discharge Medication List Atorvastatin [Lipitor] 20 mg PO HS@209903/28/21 [History] Furosemide [Lasix] 40 mg PO DAILY@89903/28/21 [History] Acetaminophen Tab [Tylenol] 650 mg PO Q4H PRN 06/25/21 [History] Cetirizine HCl 10 mg PO HS@209906/25/21 [History] Rivaroxaban [Xarelto] 20 mg PO DAILY@89906/25/21 [History] metFORMIN HCL [Glucophage] 1,000 mg PO BID@899,209906/25/21 [History] Mag Hydrox/Aluminum Hyd/Simeth [Mylanta Maximum Strength Liq] 10 ml PO Q4H PRN 08/05/21 [History] Melatonin 3 mg PO HS@209908/05/21 [History] Psyllium Husk 100% [Metamucil Packet] 6 gm PO DAILY@89908/05/21 [History] Semaglutide [Ozempic] 0.25 mg SQ TU@89908/05/21 [History] Insulin Lispro [humaLOG Kwikpen] See Protocol SQ AC-TID 11/03/21 [History] Nitroglycerin Sl Tabs [Nitrostat] 0.4 mg SL Q5M PRN 11/03/21 [History] Sertraline [Zoloft] 25 mg PO HS@209911/03/21 [History] Albuterol Nebulized [Ventolin Nebulized] 2.5 mg INHALATION RT-Q6H PRN 03/11/22 [History] Aspirin 81 mg PO DAILY@89903/11/22 [History] Budesonide-Formot 160-4.5 Mcg [Symbicort 160-4.5 Mcg Inhaler] 2 puff INHALATION RT-BID@899,209903/11/22 [History] Docusate [Colace] 100 mg PO BID PRN 03/11/22 [History] Ferrous Sulfate [Iron (65 MG Elemental)] 325 mg PO BID@0900,2100 03/11/22 [History] Insulin Glargine,Hum.rec.anlog [Lantus Solostar Pen] 12 unit SQ DAILY@0900 03/11/22 [History] Lactulose 10 gm PO BID PRN 03/11/22 [History] Menthol [Biofreeze] 1 applic TOPICAL Q6H PRN 03/11/22 [History] guaiFENesin [guaiFENesin Oral Solution] 100 mg PO Q4H PRN 03/11/22 [History] Albuterol Inhaler [Ventolin Hfa Inhaler] 1 puff INHALATION RT-QID PRN 05/09/22 [History] Cephalexin [Keflex] 500 mg PO TID 7 Days #21 cap 05/31/22 [Rx] Ipratropium-Albuterol Nebulize [Duoneb 0.5 mg-3 mg/3 ml Soln] 3 ml INHALATION Q4H PRN each 05/31/22 [Rx] Magnesium Oxide [Mag-Ox] 400 mg PO TID tab 05/31/22 [Rx] Pantoprazole [Protonix] 40 mg PO AC-BRKFST tab 05/31/22 [Rx] Follow up Appointment(s)/Referral(s): Caleb Tsang MD [Primary Care Provider] - 1-2 days King Redmond MD [STAFF PHYSICIAN] - 1 Week Curt Wilkins MD [STAFF PHYSICIAN] - 1 Week Ambulatory/Diagnostic Orders: Complete Blood Count w/diff [LAB.AMB] Time Frame: 3 Days, Location: None Selected Activity/Diet/Wound Care/Special Instructions: Patient is returning to [facility] on the [place] Follow-up with Dr. Tsang in the next 1-3 days Continue taking medications as prescribed Recommend repeat labs of CBC, BMP, magnesium in 2-3 days Continue with magnesium rich foods and consistent carb diabetic heart healthy diet Magnesium was 1.3 with multiple attempts at trying to replace although patient had no IV access and refusing further IVs and has been started on mag oxide 3 times a day and recommend close outpatient follow-up and labs in the next 2-3 days Recommend continue monitoring Accu-Cheks before meals and at bedtime and continue with insulin regimen Continue with antibiotics in the form of Keflex 500 mg 3 times a day for the nex t 1 week Patient may follow-up with orthopedics outpatient as needed for left knee pain Recommend to continue with precautions for high risk for falls Patient had also been refusing Symbicort inhaler and breathing treatments and recommend continue with these and 4 L oxygen via nasal cannula Patient was retaining requiring indwelling Belcher catheter recommend to continue with catheter and urology follow-up in the outpatient setting Discharge Disposition: TRANSFER TO SNF/ECF
--- NOTE | 2022-06-01 12:36 | CDI ---
Documentation Clarification Form Date: 06/01/22 From: Rosalia Raymond Admit Date: 05/30/2022 09:02:00 AM Patient Name: Viviana Diaz Visit Number: [id number] Discharge Date: 05/31/2022 04:25:00 PM ATTENTION: The Clinical Documentation Specialists (CDI) and [facility] Coding Staff appreciate your assistance in clarifying documentation. Please respond to the clarification below the line at the bottom and electronically sign. The CDI & [facility] Coding staff will review the response and follow-up if needed. Please note: Queries are made part of the Legal Health Record. If you have any questions, please contact the author of this message via ITS. Dr. Hector Ram, Unspecified CKD is documented in Dr Redmond consult. Additional clarification regarding the stage of CKD is requested. History/Risk Factors: cellulitis of left lower limb, toxic encephalopathy, venous thromboembolism, HTN w CHF & CKD, anemia d/t CKD, hyponatremia, morbid obesity w BM! of 41.6, T2DM, dementia Clinical Indicators: Current BUN: 34, 23, 20.1, 17.1, 18 Current CR: 1.14, 0.88, 0.9, 0.9, 0.85 Current GFR: 54, 73, 69.3, 73.7, 76 Treatment: IV fluids, IV Vanco, lab monitoring Please clarify the stage of the CKD, if known: [ ] CKD Stage 1 (GFR > 90) [ ] CKD Stage 2 (GFR 60-89) [ ] CKD Stage 3 (GFR 30-59) [ ] CKD Stage 3a (GFR 45-59) [ ] CKD Stage 3b (GFR 30-44) [ ] CKD Stage 4 (GFR 15-29) [ ] CKD Stage 5 (GFR <15) [ ] ESRD [ x ] Other, please specify _No CKD [ ] Unable to determine MTDD
--- NOTE | 2022-06-07 23:24 | P.PN ---
Subjective Progress Note Date: 05/29/22 Principal diagnosis: Left lower extremity cellulitis Patient is a 77 year old female with a recent history of for follow-up subsequently presented to hospital with left lower leg pain swelling and redness CT has been negative for any abscess. On today's evaluation that is 05/29/2022, the patient continues to be afebrile, the patient pain to the left lower extremity pain and swelling has slightly decreased, the patient denies having any chest pain or shortness of breath or cough no abdominal pain or diarrhea, Objective - Vital Signs Vital signs: Vital Signs Temp 97.5 F L 05/29/22 15:00 Pulse 94 05/29/22 15:00 Resp 18 05/29/22 15:00 BP 175/71 05/29/22 15:00 Pulse Ox 100 05/29/22 15:00 FiO2 Intake & Output 05/28/22 05/29/22 05/29/22 18:59 06:59 18:59 Output Total 0 550 Balance 0 -550 Output: Urine 550 Straight 550 Emesis 0 Other: Voiding Method Bedside Commode Diaper Incontinent # Voids 3 3 - Exam GENERAL DESCRIPTION: An elderly female lying in bed in no distress RESPIRATORY SYSTEM: Unlabored breathing , decreased breath sounds at bases HEART: S1 S2 regular rate and rhythm , ABDOMEN: Soft , no tenderness EXTREMITIES: Left lower extremity just below the knee did have an area of swelling induration and tenderness - Labs CBC & Chem 7: 05/31/22 08:46 05/29/22 10:15 Labs: Abnormal Lab Results - Last 24 Hours (Table) 05/28/22 05/28/22 05/28/22 Range/Units 16:19 16:19 17:43 RBC 2.84 L (3.80-5.40) m/uL Hgb 7.5 L (11.4-16.0) gm/dL Hct 25.8 L (34.0-46.0) % MCHC 29.3 L (31.0-37.0) g/dL ESR (0-20) mm/hr Carbon Dioxide (22-30) mmol/L BUN (7-17) mg/dL Glucose (70-110) mg/dL POC Glucose (mg/dL) 135 H (70-110) mg/dL C-Reactive Protein (0.00-0.80) mg/dL Crossmatch See Detail 05/28/22 05/29/22 05/29/22 Range/Units 20:07 07:17 07:17 RBC 2.98 L (3.80-5.40) m/uL Hgb 7.8 L (11.4-16.0) gm/dL Hct 26.8 L (34.0-46.0) % MCHC 29.3 L (31.0-37.0) g/dL ESR (0-20) mm/hr Carbon Dioxide (22-30) mmol/L BUN (7-17) mg/dL Glucose 120 H (70-110) mg/dL POC Glucose (mg/dL) 138 H (70-110) mg/dL C-Reactive Protein 8.80 H (0.00-0.80) mg/dL Crossmatch 05/29/22 05/29/22 05/29/22 Range/Units 07:38 10:15 10:15 RBC (3.80-5.40) m/uL Hgb (11.4-16.0) gm/dL Hct (34.0-46.0) % MCHC (31.0-37.0) g/dL ESR 102 H (0-20) mm/hr Carbon Dioxide 31 H (22-30) mmol/L BUN 18 H (7-17) mg/dL Glucose 133 H (70-110) mg/dL POC Glucose (mg/dL) 118 H (70-110) mg/dL C-Reactive Protein (0.00-0.80) mg/dL Crossmatch 05/29/22 Range/Units 12:05 RBC (3.80-5.40) m/uL Hgb (11.4-16.0) gm/dL Hct (34.0-46.0) % MCHC (31.0-37.0) g/dL ESR (0-20) mm/hr Carbon Dioxide (22-30) mmol/L BUN (7-17) mg/dL Glucose (70-110) mg/dL POC Glucose (mg/dL) 131 H (70-110) mg/dL C-Reactive Protein (0.00-0.80) mg/dL Crossmatch Microbiology - Last 24 Hours (Table) 05/26/22 02:30 Blood Culture - Preliminary Blood No Growth after 72 hours 05/26/22 02:40 Blood Culture - Preliminary Blood No Growth after 72 hours Assessment and Plan (1) Cellulitis of left leg Status: Acute Code(s): L03.116 - CELLULITIS OF LEFT LOWER LIMB SNOMED Code(s): 814224797 Plan: 1patient presented to hospital with left leg pain and swelling in this patient did have recent history of trauma fall patient swelling redness is most concentrated at the prepatellar bursal area concerning for prepatellar bursitis likely from gram-positive skin mary keeping in mind detention patient will need to cover for resistant gram-positive such as MRSA. 2CT of the knee and lower extremity complicated with evidence of small suprapatellar bursal fluid collection concerning for bursitis versus hematoma. However clinically more behaving as a hematoma than an abscess 3orthopedics has seen the patient recommending no debridement or drainage 4patient has lost IV access , patient continue with oral Keflex and monitor clinical course closely Time with Patient: Less than 30
--- NOTE | 2022-06-07 23:25 | P.PN ---
Subjective Progress Note Date: 05/30/22 Principal diagnosis: Left lower extremity cellulitis Patient is a 77 year old female with a recent history of for follow-up subsequently presented to hospital with left lower leg pain swelling and redness CT has been negative for any abscess. On today's evaluation that is 05/30/2022, the patient remains to be afebrile, the patient pain to the left lower extremity pain and swelling has slightly decreased in intensity, the patient denies having any chest pain or shortness of breath or cough no abdominal pain or diarrhea, patient wanted to go home Objective - Vital Signs Vital signs: Vital Signs Temp 98.2 F 05/30/22 07:00 Pulse 120 H 05/30/22 07:51 Resp 22 05/30/22 07:51 BP 144/77 05/30/22 07:00 Pulse Ox 100 05/30/22 07:00 FiO2 Intake & Output 05/29/22 05/30/22 05/30/22 18:59 06:59 18:59 Intake Total 100 Output Total 1677 600 Balance -1677 -600 100 Intake: Oral 100 Output: Urine 1100 600 Straight 550 Post Void Residual 577 Other: Voiding Method External Catheter External Catheter # Voids 1 2 - Exam GENERAL DESCRIPTION: An elderly female lying in bed in no distress RESPIRATORY SYSTEM: Unlabored breathing , decreased breath sounds at bases HEART: S1 S2 regular rate and rhythm , ABDOMEN: Soft , no tenderness EXTREMITIES: Left lower extremity just below the knee did have an area of swelling induration which has decreased in intensity - Labs CBC & Chem 7: 05/31/22 08:46 05/29/22 10:15 Labs: Abnormal Lab Results - Last 24 Hours (Table) 05/28/22 05/29/22 05/29/22 Range/Units 20:15 07:17 11:56 RBC (3.80-5.40) m/uL Hgb (11.4-16.0) gm/dL Hct (34.0-46.0) % MCHC (31.0-37.0) g/dL Retic Count 2.58 H (0.10-1.80) % Haptoglobin (31.2-198.0) mg/dL Glucose 120 H (70-110) mg/dL POC Glucose (mg/dL) (70-110) mg/dL Iron (50-170) ug/dL % Saturation (12.00-45.00) Transferrin (204.0-354.0) mg/dL C-Reactive Protein 8.80 H (0.00-0.80) mg/dL Albumin (PEP) (3.80-4.90) g/dL Tmrgx-6-Ijvinfxcy (0.10-0.40) g/dL Dmpdq-4-Cukxyyisv (0.60-1.00) g/dL Free [place] LC, Quant (0.33-1.94) mg/dL Crossmatch See Detail 05/29/22 05/29/22 05/29/22 Range/Units 11:56 11:56 11:56 RBC (3.80-5.40) m/uL Hgb (11.4-16.0) gm/dL Hct (34.0-46.0) % MCHC (31.0-37.0) g/dL Retic Count (0.10-1.80) % Haptoglobin 283.0 H (31.2-198.0) mg/dL Glucose (70-110) mg/dL POC Glucose (mg/dL) (70-110) mg/dL Iron 30 L (50-170) ug/dL % Saturation 11.18 L (12.00-45.00) Transferrin 191.0 L (204.0-354.0) mg/dL C-Reactive Protein (0.00-0.80) mg/dL Albumin (PEP) 2.74 L (3.80-4.90) g/dL Amwva-6-Biduhneqs 0.43 H (0.10-0.40) g/dL Reofj-0-Yzjpaxkxu 1.02 H (0.60-1.00) g/dL Free [place] LC, Quant 4.74 H (0.33-1.94) mg/dL Crossmatch 05/29/22 05/29/22 05/30/22 Range/Units 17:01 20:37 06:55 RBC (3.80-5.40) m/uL Hgb (11.4-16.0) gm/dL Hct (34.0-46.0) % MCHC (31.0-37.0) g/dL Retic Count (0.10-1.80) % Haptoglobin (31.2-198.0) mg/dL Glucose (70-110) mg/dL POC Glucose (mg/dL) 113 H 200 H 166 H (70-110) mg/dL Iron (50-170) ug/dL % Saturation (12.00-45.00) Transferrin (204.0-354.0) mg/dL C-Reactive Protein (0.00-0.80) mg/dL Albumin (PEP) (3.80-4.90) g/dL Dpcgf-4-Wkvagtojm (0.10-0.40) g/dL Hieqb-8-Jdceidtzk (0.60-1.00) g/dL Free [place] LC, Quant (0.33-1.94) mg/dL Crossmatch 05/30/22 05/30/22 Range/Units 11:12 11:56 RBC 2.91 L (3.80-5.40) m/uL Hgb 7.9 L (11.4-16.0) gm/dL Hct 26.6 L (34.0-46.0) % MCHC 29.8 L (31.0-37.0) g/dL Retic Count (0.10-1.80) % Haptoglobin (31.2-198.0) mg/dL Glucose (70-110) mg/dL POC Glucose (mg/dL) 167 H (70-110) mg/dL Iron (50-170) ug/dL % Saturation (12.00-45.00) Transferrin (204.0-354.0) mg/dL C-Reactive Protein (0.00-0.80) mg/dL Albumin (PEP) (3.80-4.90) g/dL Yftjl-9-Dakmbmtna (0.10-0.40) g/dL Vvyxq-6-Ynmtaurfc (0.60-1.00) g/dL Free [place] LC, Quant (0.33-1.94) mg/dL Crossmatch Microbiology - Last 24 Hours (Table) 05/26/22 02:40 Blood Culture - Preliminary Blood No Growth after 96 hours 05/26/22 02:30 Blood Culture - Preliminary Blood No Growth after 96 hours Assessment and Plan (1) Cellulitis of left leg Status: Acute Code(s): L03.116 - CELLULITIS OF LEFT LOWER LIMB SNOMED Code(s): 239385791 Plan: 1patient presented to hospital with left leg pain and swelling in this patient did have recent history of trauma fall patient swelling redness is most concentrated at the prepatellar bursal area concerning for prepatellar bursitis likely from gram-positive skin mary keeping in mind senior living patient will need to cover for resistant gram-positive such as MRSA. 2CT of the knee and lower extremity complicated with evidence of small suprapatellar bursal fluid collection concerning for bursitis versus hematoma. However clinically more behaving as a hematoma than an abscess, orthopedics has seen the patient recommending no debridement or drainage 4patient slowly clinical improvement and will continue with oral Keflex and monitor clinical course closely Time with Patient: Less than 30
--- NOTE | 2022-06-07 23:27 | P.PN ---
Subjective Progress Note Date: 05/31/22 Principal diagnosis: Left lower extremity cellulitis Patient is a 77 year old female with a recent history of for follow-up subsequently presented to hospital with left lower leg pain swelling and redness CT has been negative for any abscess. On today's evaluation that is 05/31/2022, the patient denies any fever or any chills, the patient pain to the left lower extremity pain is currently controlled, the patient denies having any chest pain or shortness of breath or cough no abdominal pain or diarrhea, patient is feeling better and wanted to go home Objective - Vital Signs Vital signs: Vital Signs Temp 97.9 F 05/31/22 07:59 Pulse 104 H 05/31/22 08:00 Resp 22 05/31/22 07:59 BP 97/57 05/31/22 07:59 Pulse Ox 94 L 05/31/22 07:59 FiO2 Intake & Output 05/30/22 05/31/22 05/31/22 18:59 06:59 18:59 Intake Total 100 118 Output Total 825 250 Balance -725 -250 118 Intake: Oral 100 118 Output: Urine 825 250 Other: Voiding Method Indwelling Catheter Indwelling Catheter # Bowel Movements 2 - Exam GENERAL DESCRIPTION: An elderly female lying in bed in no distress RESPIRATORY SYSTEM: Unlabored breathing , decreased breath sounds at bases HEART: S1 S2 regular rate and rhythm , ABDOMEN: Soft , no tenderness EXTREMITIES: Left lower extremity just below the knee did have an area of sw elling induration which has decreased in intensity - Labs CBC & Chem 7: 05/31/22 08:46 05/29/22 10:15 Labs: Abnormal Lab Results - Last 24 Hours (Table) 05/28/22 05/29/22 05/30/22 Range/Units 20:15 11:56 17:13 RBC (3.80-5.40) m/uL Hgb (11.4-16.0) gm/dL Hct (34.0-46.0) % MCHC (31.0-37.0) g/dL POC Glucose (mg/dL) 146 H (70-110) mg/dL Magnesium (1.6-2.3) mg/dL Albumin (PEP) 2.74 L (3.80-4.90) g/dL Ejxbz-1-Agcszfzfx 0.43 H (0.10-0.40) g/dL Afudh-8-Vvnxuhgui 1.02 H (0.60-1.00) g/dL Free Lambda LC, Quant 4.02 H (0.57-2.63) mg/dL Crossmatch See Detail 05/30/22 05/31/22 05/31/22 Range/Units 21:03 07:13 08:46 RBC 2.76 L (3.80-5.40) m/uL Hgb 7.7 L (11.4-16.0) gm/dL Hct 25.2 L (34.0-46.0) % MCHC 30.7 L (31.0-37.0) g/dL POC Glucose (mg/dL) 157 H 163 H (70-110) mg/dL Magnesium (1.6-2.3) mg/dL Albumin (PEP) (3.80-4.90) g/dL Bscdx-6-Pmgdzyrrm (0.10-0.40) g/dL Acuov-2-Frhrtcuxl (0.60-1.00) g/dL Free Lambda LC, Quant (0.57-2.63) mg/dL Crossmatch 05/31/22 05/31/22 05/31/22 Range/Units 08:46 10:12 12:01 RBC (3.80-5.40) m/uL Hgb (11.4-16.0) gm/dL Hct (34.0-46.0) % MCHC (31.0-37.0) g/dL POC Glucose (mg/dL) 174 H 195 H (70-110) mg/dL Magnesium 1.3 L (1.6-2.3) mg/dL Albumin (PEP) (3.80-4.90) g/dL Osiwo-1-Mzlhlajry (0.10-0.40) g/dL Vqfgg-3-Glqfveghs (0.60-1.00) g/dL Free Lambda LC, Quant (0.57-2.63) mg/dL Crossmatch Microbiology - Last 24 Hours (Table) 05/26/22 02:40 Blood Culture - Preliminary Blood No Growth after 120 hours 05/26/22 02:30 Blood Culture - Preliminary Blood No Growth after 120 hours Assessment and Plan (1) Cellulitis of left leg Status: Acute Code(s): L03.116 - CELLULITIS OF LEFT LOWER LIMB SNOMED Code(s): 730375719 Plan: 1patient presented to hospital with left leg pain and swelling in this patient did have recent history of trauma fall patient swelling redness is most concentrated at the prepatellar bursal area concerning for prepatellar bursitis likely from gram-positive skin mary keeping in mind correction patient will need to cover for resistant gram-positive such as MRSA. 2CT of the knee and lower extremity complicated with evidence of small sup rapatellar bursal fluid collection concerning for bursitis versus hematoma. However clinically more behaving as a hematoma than an abscess, orthopedics has seen the patient recommending no debridement or drainage 4patient has clinical improvement and will continue with oral Keflex 7 days on discharge discussed with the nurse practitioner for admitting team Time with Patient: Less than 30
== END 2022-05-31 16:25 | DRG 602 ==
LOC: EC 01:23 → 6NMEDSUR 03:38 → OBSVTOIN 05-30 09:02
PROVIDERS: ADMIT Hospitalist; ATTEND Hospitalist
DX: L03.116 Cellulitis of left lower limb (principal); G92.8 Other toxic encephalopathy; E87.1 Hypo-osmolality and hyponatremia; Z68.41 Body mass index [BMI] 40.0-44.9, adult; E11.319 Type 2 diabetes mellitus with unspecified diabetic retinopathy without macular edema; D63.1 Anemia in chronic kidney disease; E11.22 Type 2 diabetes mellitus with diabetic chronic kidney disease; I50.9 Heart failure, unspecified; E11.40 Type 2 diabetes mellitus with diabetic neuropathy, unspecified; F03.90 Unspecified dementia, unspecified severity, without behavioral disturbance, psychotic disturbance, mood disturbance, and anxiety; I11.0 Hypertensive heart disease with heart failure; J44.9 Chronic obstructive pulmonary disease, unspecified; E66.01 Morbid (severe) obesity due to excess calories; Z79.4 Long term (current) use of insulin; Z66 Do not resuscitate; M70.42 Prepatellar bursitis, left knee; M70.52 Other bursitis of knee, left knee; E78.5 Hyperlipidemia, unspecified; I25.10 Atherosclerotic heart disease of native coronary artery without angina pectoris; K59.09 Other constipation; Z91.19 Patient's noncompliance with other medical treatment and regimen; G47.33 Obstructive sleep apnea (adult) (pediatric); R29.6 Repeated falls; M41.9 Scoliosis, unspecified; H54.8 Legal blindness, as defined in USA; R32 Unspecified urinary incontinence; M19.90 Unspecified osteoarthritis, unspecified site; Z99.81 Dependence on supplemental oxygen; Z79.82 Long term (current) use of aspirin; Z79.51 Long term (current) use of inhaled steroids; Z79.84 Long term (current) use of oral hypoglycemic drugs; Z79.01 Long term (current) use of anticoagulants; Z79.899 Other long term (current) drug therapy; Z85.528 Personal history of other malignant neoplasm of kidney; Z96.611 Presence of right artificial shoulder joint; Z86.718 Personal history of other venous thrombosis and embolism; Z86.711 Personal history of pulmonary embolism; Z90.5 Acquired absence of kidney; Z91.81 History of falling; Z88.8 Allergy status to other drugs, medicaments and biological substances; W01.0XXA Fall on same level from slipping, tripping and stumbling without subsequent striking against object, initial encounter; Y92.121 Bathroom in nursing home as the place of occurrence of the external cause
CPT/HCPCS: 36415; 36600; 70450; 71045; 80048; 80053; 81001; 82607; 82728; 82746; 82747; 82805; 83010; 83540; 83550; 83605; 83615; 83735; 83883; 84145; 84165; 84439; 84443; 85025; 85027; 85045; 85652; 86140; 86334; 86850; 86870; 86880; 86900; 86901; 86902; 86920; 87040; 94640; 94760; 96365; 96366; 99284